=== PATIENT | female | born 1960 | race Caucasian/White ===

== ENCOUNTER 2016-10-18 17:20 | Emergency (ER) | payer OTHER ==
[2016-10-18] MEDS ORDERED: ALBUT/IPRATROP 3MG/0.5MG NEB 3 ML VIAL INH STA ×2 (17:32→20:24)
[2016-10-18] MEDS ORDERED: SODIUM CHLORIDE 0.9% 1000ML 1,000 ML IV STA ×2 (17:32→17:56)
[2016-10-18] MEDS ORDERED: METHYLPREDNISOLONE 125 MG VIAL IV STA (17:37)
[2016-10-18] MEDS ORDERED: SODIUM CHLORIDE 0.9% 500ML 500 ML IV STA (17:56)
[2016-10-18 18:12] LABS: BASO % 0.1 %; BASO ABS # 0.01 K/uL (0-0.2); COMPLETE YES; EOS % 0.4 %; HEMATOCRIT 40.6 % (37-47); IG% 0.1 %; LYMPH ABS # 1.67 K/uL (1.2-3.4); MEAN CELL VOLUME 93.1 fL (80-100); MEAN CORPUSCULAR HEMOGLOBIN 30.3 pg (25-34); MEAN CORPUSCULAR HGB CONC 32.5 g/dl (32-36); MEAN PLATELET VOLUME 9.8 fL (7.4-10.4); MONO % 9.2 %; NEUT % 74.2 %; PLATELET COUNT 312 K/uL (130-400); RED BLOOD COUNT 4.36 M/uL (4.2-5.4); WHITE BLOOD COUNT 10.43 K/uL (4.8-10.8)
[2016-10-18 18:20] LABS: URINE APPEARANCE CLOUDY (CLEAR); URINE COLOR ORANGE; URINE EPITHELIAL CELL AUTO >30 /lpf (0-5); URINE NITRITE NEG (NEG); URINE PH 5.5 (4.5-7.5); URINE SPECIFIC GRAVITY 1.026 (1.000-1.030); UROBILINOGEN POS (NEG)
--- NOTE | 2016-10-18 18:21 | DIAGNOSTIC IMAGING REPORT ---
CHEST ONE VIEW PORTABLE CLINICAL HISTORY: Respiratory distress. Shortness of breath. COMPARISON STUDY: No previous studies for comparison. FINDINGS: The heart is normal in size. There is severe pulmonary emphysema. There are right lower lobe airspace opacities suspicious for a pneumonia. Films subsequent to treatment are recommended in follow-up. Increased interstitial markings are also present within the left perihilar region, possibly chronic. There are no significant pleural effusions.[ IMPRESSION: 1. Emphysema 2. Right lower lobe airspace opacities suspicious for pneumonia. Clinical and radiographic follow-up is recommended in Electronically signed by: Eliu Dietrich M.D. 10/18/2016 6:20 PM Dictated Date/Time: 10/18/2016 6:19 PM
[2016-10-18 18:29] LABS: ALT/SGPT 43 U/L (12-78); AST/SGOT 51 U/L (15-37); BLOOD UREA NITROGEN 13 mg/dl (7-18); BUN/CREATININE RATIO 13.9 (10-20); CALCIUM 8.6 mg/dl (8.5-10.1); CARBON DIOXIDE 27 mmol/L (21-32); CHLORIDE 104 mmol/L (98-107); CREATININE 0.96 mg/dl (0.60-1.20); GLUCOSE 145 mg/dl (70-99); POTASSIUM 4.1 mmol/L (3.5-5.1); SODIUM 140 mmol/L (136-145)
[2016-10-18 18:34] LABS: ALB/GLOB RATIO 0.7 (0.9-2); ALKALINE PHOSPHATASE 117 U/L (45-117); CKMB/CK RATIO 1.7 (0-3.0)
[2016-10-18 18:43] LABS: MANUAL MICROSCOPIC REQUIRED? NO; REVIEW REQ? YES; URINE BILIRUBIN NEG (NEG)
[2016-10-18 18:45] LABS: URINE MUCUS PRESENT (NONE PRSENT)
[2016-10-18] MEDS ORDERED: SYMIN160 INH (19:03)
[2016-10-18] MEDS ORDERED: ATOR-24 PO (19:03)
[2016-10-18] MEDS ORDERED: CITA20TA9 PO (19:03)
[2016-10-18] MEDS ORDERED: IPRA1AER2 INH (19:03)
[2016-10-18] MEDS ORDERED: CLOP1TAB15 PO (19:03)
[2016-10-18] MEDS ORDERED: LISI-729 PO (19:03)
[2016-10-18] MEDS ORDERED: SPRIN/30 INH (19:03)
[2016-10-18] MEDS ORDERED: LEVAQUIN 750MG / 150ML D5W IV STA (20:24)
[2016-10-18] MEDS ORDERED: PRED50TA PO (23:14)
[2016-10-18] MEDS ORDERED: LEVO-366 PO (23:14)
--- NOTE | 2016-10-18 23:15 | EMERGENCY ROOM VISIT NOTE ---
History Report prepared by Lj: Bryant Sheldon Under the Supervision of: Dr. Lul Tyler M.D. First contact with patient: 17:31 Chief Complaint: FEVER Stated Complaint: COLD SYMPTOMS,FEVER,COUGH,PHLEM,RT SIDE PAIN History of Present Illness The patient is a 55 year old female who presents to the Emergency Room with complaints of worsening cold symptoms starting three days ago. The daughter states that the patient lives in [place] and was visiting her when the patient started to experience cold like symptoms, a fever, and a productive cough with green phlegm. The patient states that she has pain in her right ribs, a burning sensation with urination, and is moderately fatigued. She admits that she took Tylenol and cough drops for her symptoms but denies any relief. The patient states that she has a history of emphysema, pneumonia, COPD, heart disease, and a heart attack in 2011. She admits that she currently has two stents. The patient reports that she has oxygen at home that she uses for sleep or over exertion. She also states that she is on three different inhalers, but denies any relief. The patient denies LOC, headache, chills, diaphoresis, visual changes, neck pain, breathing difficulties, nausea, vomiting, abdominal pain, back pain, melena, hematochezia, numbness, weakness, lymphadenopathy, rash, or other complaints. Source of History: patient, family (daughter) Onset: three days ago Position: other (global) Timing: worsening Modifying Factors (Relieving): tylenol, other (cough drops) Associated Symptoms: + fevers, + cough (productive), + chest pain, + urinary symptoms, + fatigue Review of Systems See HPI for pertinent positives and negatives. A total of ten systems were reviewed and were otherwise negative. Past Medical & Surgical Medical Problems: (1) Acid reflux (2) Bronchitis (3) COPD (chronic obstructive pulmonary disease) (4) Coronary artery disease (5) Emphysema of lung (6) Heart attack (7) Heart disease (8) Hypertension (9) Myocardial infarct (10) Pneumonia Surgical Problems: (1) H/O heart artery stent (2) History of hysterectomy (3) Stented coronary artery Family History Cancer Diabetes mellitus Heart disease Hypertension Lung disease Social History Smoking Status: Former Smoker Smokeless Tobacco Use: No Alcohol Use: occasionally Drug Use: none Occupation Status: retired Current/Historical Medications Scheduled Atorvastatin (Lipitor), 40 MG PO DAILY Budesonide/Formoterol Fumarate (Symbicort 160/4.5 Inhaler), 2 PUFFS INH DAILY Citalopram Hydrobromide (Celexa), 20 MG PO DAILY Clopidogrel (Plavix), 75 MG PO DAILY Ipratropium-Albuterol (Combivent Respimat), 1 PUFFS INH QID Levofloxacin (Levaquin), 500 MG PO DAILY Lisinopril (Prinivil), 2.5 MG PO DAILY Prednisone (Prednisone), 50 MG PO DAILY Tiotropium [place] (Spiriva Handihaler), 1 CAP INH DAILY Allergies Coded Allergies: Sulfamethoxazole w/Trimethoprim (Verified Allergy, Severe, THROAT AND EARS SWELL, 10/18/16) Codeine (Verified Adverse Reaction, Intermediate, STOMACH CRAMPS, "KNOCKS ME OUT FOR DAYS", 10/18/16) Physical Exam Vital Signs Date Time Temp Pulse Resp B/P (MAP) Pulse Ox O2 Delivery O2 Flow Rate FiO2 10/18/16 23:23 36.5 87 16 103/57 98 10/18/16 22:19 90 16 114/64 98 Nasal Cannula 3.0 10/18/16 21:15 93 10/18/16 20:29 102 22 111/69 93 Room Air 10/18/16 19:29 85 16 109/63 97 Nasal Cannula 3.0 10/18/16 18:56 90 20 99/68 98 Nasal Cannula 10/18/16 18:10 98 24 117/53 100 Nasal Cannula 3.0 10/18/16 17:53 100 10/18/16 17:40 Nasal Cannula 10/18/16 17:40 Nasal Cannula 4.0 10/18/16 17:23 36.5 128 28 127/81 89 Nasal Cannula 3.0 Physical Exam GENERAL: Awake, alert, tired-appearing, in no distress HENT: Normocephalic, atraumatic. Oropharynx unremarkable. EYES: Normal conjunctiva. Sclera non-icteric. NECK: Supple. No nuchal rigidity. FROM. No JVD. RESPIRATORY: Clear to auscultation. Mild Dyspnea CARDIAC: tachycardic rate, normal rhythm. Extremities warm and well perfused. Pulses equal. ABDOMEN: Soft, non-distended. No tenderness to palpation. No rebound or guarding. No masses. RECTAL: Deferred. MUSCULOSKELETAL: Chest examination reveals no tenderness. The back is symmetrical on inspection without obvious abnormality. There is no CVA tenderness to palpation. No joint edema. LOWER EXTREMITIES: Chronic pain of lower extremities. Calves are equal size bilaterally and non-tender. No edema. Discoloration. NEURO: Normal sensorium. No sensory or motor deficits noted. SKIN: No rash or jaundice noted. Medical Decision & Procedures ER Provider Diagnostic Interpretation: X-ray: Per my interpretation, radiologist review. CHEST ONE VIEW PORTABLE CLINICAL HISTORY: Respiratory distress. Shortness of breath. COMPARISON STUDY: No previous studies for comparison. FINDINGS: The heart is normal in size. There is severe pulmonary emphysema. There are right lower lobe airspace opacities suspicious for a pneumonia. Films subsequent to treatment are recommended in follow-up. Increased interstitial markings are also present within the left perihilar region, possibly chronic. There are no significant pleural effusions.[ IMPRESSION: 1. Emphysema 2. Right lower lobe airspace opacities suspicious for pneumonia. Clinical and radiographic follow-up is recommended in Electronically signed by: Eliu Dietrich M.D. 10/18/2016 6:20 PM Dictated Date/Time: 10/18/2016 6:19 PM Laboratory Results 10/18/16 17:45 Red Blood Count 4.36, Mean Corpuscular Volume 93.1, Mean Corpuscular Hemoglobin 30.3, Mean Corpuscular Hemoglobin Concent 32.5, Mean Platelet Volume 9.8, Neutrophils (%) (Auto) 74.2, Lymphocytes (%) (Auto) 16.0, Monocytes (%) (Auto) 9.2, Eosinophils (%) (Auto) 0.4, Basophils (%) (Auto) 0.1, Neutrophils # (Auto) 7.74, Lymphocytes # (Auto) 1.67, Monocytes # (Auto) 0.96, Eosinophils # (Auto) 0.04, Basophils # (Auto) 0.01 10/18/16 17:45 Test 10/18/16 17:45 10/18/16 17:50 10/18/16 17:55 White Blood Count 10.43 K/uL (4.8-10.8) Red Blood Count 4.36 M/uL (4.2-5.4) Hemoglobin 13.2 g/dL (12.0-16.0) Hematocrit 40.6 % (37-47) Mean Corpuscular Volume 93.1 fL (80-100) Mean Corpuscular Hemoglobin 30.3 pg (25-34) Mean Corpuscular Hemoglobin Concent 32.5 g/dl (32-36) Platelet Count 312 K/uL (130-400) Mean Platelet Volume 9.8 fL (7.4-10.4) Neutrophils (%) (Auto) 74.2 % Lymphocytes (%) (Auto) 16.0 % Monocytes (%) (Auto) 9.2 % Eosinophils (%) (Auto) 0.4 % Basophils (%) (Auto) 0.1 % Neutrophils # (Auto) 7.74 K/uL (1.4-6.5) Lymphocytes # (Auto) 1.67 K/uL (1.2-3.4) Monocytes # (Auto) 0.96 K/uL (0.11-0.59) Eosinophils # (Auto) 0.04 K/uL (0-0.5) Basophils # (Auto) 0.01 K/uL (0-0.2) RDW Standard Deviation 41.5 fL (36.4-46.3) RDW Coefficient of Variation 12.2 % (11.5-14.5) Immature Granulocyte % (Auto) 0.1 % Immature Granulocyte # (Auto) 0.01 K/uL (0.00-0.02) Anion Gap 9.0 mmol/L (3-11) Estimated GFR () 76.1 Estimated GFR (Non- 65.7 BUN/Creatinine Ratio 13.9 (10-20) Calcium Level 8.6 mg/dl (8.5-10.1) Total Bilirubin 0.9 mg/dl (0.2-1) Aspartate Amino Transf (AST/SGOT) 51 U/L (15-37) Alanine Aminotransferase (ALT/SGPT) 43 U/L (12-78) Alkaline Phosphatase 117 U/L (45-117) Total Creatine Kinase 107 U/L (26-192) Creatine Kinase MB 1.8 ng/ml (0.5-3.6) Creatine Kinase MB Ratio 1.7 (0-3.0) Troponin I < 0.015 ng/ml (0-0.045) Pro-B-Type Natriuretic Peptide 353 pg/ml (0-900) Total Protein 7.7 gm/dl (6.4-8.2) Albumin 3.3 gm/dl (3.4-5.0) Globulin 4.4 gm/dl (2.5-4.0) Albumin/Globulin Ratio 0.7 (0.9-2) Urine Color ORANGE Urine Appearance CLOUDY (CLEAR) Urine pH 5.5 (4.5-7.5) Urine Specific [place] 1.026 (1.000-1.030) Urine Protein 1+ (NEG) Urine Glucose (UA) NEG (NEG) Urine Ketones 1+ (NEG) Urine Occult Blood TRACE (NEG) Urine Nitrite NEG (NEG) Urine Bilirubin NEG (NEG) Urine Urobilinogen POS (NEG) Urine Leukocyte Esterase MODERATE (NEG) Urine WBC (Auto) >30 /hpf (0-5) Urine RBC (Auto) 0-4 /hpf (0-4) Urine Hyaline Casts (Auto) >30 /lpf (0-5) Urine Epithelial Cells (Auto) >30 /lpf (0-5) Urine Bacteria (Auto) NEG (NEG) Urine Renal Epithelial Cells 0-5 /lpf (0-5) Urine Pathogenic Casts See comments /lpf (0) Urine Mucus PRESENT (NONE PRSENT) Bedside Lactic Acid Venous 1.68 mmol/L (0.90-1.70) Laboratory results reviewed by me Medications Administered Medications (Trade) Dose Ordered Sig/Valery Route Start Time Stop Time Status Last Admin Dose Admin Albuterol/ Ipratropium (Duoneb) 3 ml NOW STAT INH 10/18/16 17:32 10/18/16 17:34 DC 10/18/16 17:42 3 ML Methylprednisolone Sodium Succinate (Solu-Medrol IV) 125 mg NOW STAT IV 10/18/16 17:37 10/18/16 17:38 DC 10/18/16 18:03 125 MG Sodium Chloride 1,000 ml @ 125 mls/hr Q8H STAT IV 10/18/16 17:56 10/18/16 23:47 DC 10/18/16 17:56 125 MLS/HR Sodium Chloride 500 ml @ 999 mls/hr Q31M STAT IV 10/18/16 17:56 10/18/16 18:26 DC 10/18/16 18:03 999 MLS/HR Albuterol/ Ipratropium (Duoneb) 3 ml NOW STAT INH 10/18/16 20:24 10/18/16 20:25 DC 10/18/16 20:48 3 ML Levofloxacin (Levaquin / D5W) 750 mg NOW STAT IV 10/18/16 20:24 10/18/16 20:25 DC 10/18/16 20:48 750 MG Laboratory results reviewed by me ECG Indication: chest pain Rate (beats per minute): 105 Rhythm: sinus tachycardia Findings: no acute ischemic change, no ectopy, other (low voltage QRS) ED Course Blood pressure screening: Patient was found to have normal blood pressure on screening and does not require follow-up. Medication Reconciliation: I attest that I have personally reviewed the patient 's current medication list 1732: Sodium chloride 1000 ml @ 999 mls/hr IV, Duoneb 3 ml INH. 1735: The patient was evaluated in room B12B. A complete history and physical exam was performed. 1737: Solu-Medrol IV 125 mg IV. 1756: Sodium Chloride 500 ml @ 999 mls/hr, Sodium Chloride 1000 ml @ 125 mls/hr IV. 4: Levofloxacin 750 mg IV, Duoneb 3 ml INH. 2307: I reevaluated the patient. She is feeling much better after a full meal and medications. Discussed results and discharge instructions: She verbalized understanding and agreement. The patient is ready for discharge. Medical Decision Triage Nursing notes reviewed. The patient's presentation and history were concerning for respiratory issues. Etiologies such as pneumonia, COPD, reactive airway disease, CHF, cardiac ischemia, pulmonary embolism, pneumothorax, musculoskeletal, infections, gastrointestinal, as well as others were entertained. The patient was evaluated. She has a history COPD and pneumonia. She was tachycardic and had increased work of breathing. ECG was unremarkable. No ischemia. Normal intervals. No QT prolongation. She does have home oxygen but states she only uses this as needed. Her saturation was 89%. The patient was hydrated, given a breathing treatment of a DuoNeb and also received IV Solu- Medrol. This made her feel significantly better and increased her O2 saturation into the high 90s with nasal cannula oxygen. The patient had a chest x-ray performed and this did reveal a pneumonia on the right side. Her CBC, urinalysis, chemistry panel, cardiac markers and BNP were unremarkable. The patient desired to be discharged and did not want to stay in the hospital. She has made an amazing turnaround and her vital signs are stable. She was given a dose of IV Levaquin and ate dinner. She was observed for several hours and did fantastic. She has home oxygen, multiple inhalers, and feels and platelet back to normal. She has no respiratory distress or increased work of breathing at this time. As the patient desires to be discharged and is doing so well I believe it is reasonable. I will place her on prednisone and Levaquin. The patient is unsure how long she will be in town. I did instruct her she will need a follow-up with her primary physician as soon as she gets home. She agreed. I told the patient to have a very low threshold to return to the emergency department. If she worsens in anyway she agrees to return back to the Emergency Room for reevaluation and consideration of further treatment.I gave my usual and customary discussion regarding this issue. The daughter was present and feels very comfortable with this plan. Return instructions were outlined and the patient was discharged in stable condition. Impression Primary Impression: Pneumonia Additional Impression: COPD (chronic obstructive pulmonary disease) Scribe Attestation The scribe's documentation has been prepared under my direction and personally reviewed by me in its entirety. I confirm that the note above accurately reflects all work, treatment, procedures, and medical decision making performed by me. Departure Information Dispostion Home / Self-Care Prescriptions Levofloxacin (Levaquin) 500 Mg Tab 500 MG PO DAILY for 9 Days, #9 TAB Prov: Lul Tyler MD 10/18/16 Prednisone (Prednisone) 50 Mg Tab 50 MG PO DAILY for 4 Days, #4 TAB Prov: Lul Tyler MD 10/18/16 Referrals No Doctor, Assigned (PCP) Patient Instructions My [facility] Additional Instructions PNEUMONIA INSTRUCTIONS: Levafloxacin(Levaquin) 500mg: Take one pill daily for 9 days for your infection. All antibiotics can cause diarrhea. If this occurs and you feel worse or it does not resolve in 1-2 days follow up with your doctor or return to the Emergency Department as this could be signs of serious underlying problems. Any medication can cause an allergic reaction, stop the pills immediately and return to the ER for rash, hives, breathing difficulties, or swelling. Prednisone 50 mg: Once daily until the prescription is finished. Continue your inhalers. Acetaminophen(Tylenol) may be used for fever or pain. Use 1000mg every six hours as needed. Avoid using more than 4000mg in a 24 hour period. AND/OR Ibuprofen(Motrin, Advil) may be used for fever or pain. Use 600mg every six hours as needed. Take with food. Avoid using more than 2400mg in a 24 hour period. Do not use 2400mg per day for more than three consecutive days without physician direction. Prolonged inappropriate use can lead to stomach upset or ulcers. Controlling your fever with Tylenol and Ibuprofen as above will make you feel better. Rest and drink plenty of fluids. Avoid strenuous activity until your symptoms resolve and your breathing returns to normal. Return to the ER for chest pain, difficulty breathing, persistent fevers, vomiting, worsening of your condition, or as needed. Follow up with your primary physician when you return home for a recheck of the current condition. Problem Qualifiers
[2016-10-18 23:23] VITALS: BP 103/57; PULSE 87; TEMP 36.5; O2SAT 98
== END 2016-10-18 23:24 | disposition home or self-care (01) ==
LOC: C.EDB 17:21
DX: J18.9 Pneumonia, unspecified organism (principal); J44.9 Chronic obstructive pulmonary disease, unspecified; I25.10 Atherosclerotic heart disease of native coronary artery without angina pectoris; I51.9 Heart disease, unspecified; I10 Essential (primary) hypertension; I25.2 Old myocardial infarction; Z83.3 Family history of diabetes mellitus; Z82.49 Family history of ischemic heart disease and other diseases of the circulatory system; Z87.891 Personal history of nicotine dependence; J43.9 Emphysema, unspecified

== ENCOUNTER 2017-02-14 00:08 | Emergency (ER) | payer OTHER ==
[~2017-02-14] VITALS: Ht 154.9 cm; Wt 46.4 kg
[~2017-02-14 00:08] MED LIST: ATOR-24 PO; CITA20TA9 PO; CLOP1TAB15 PO; IPRA1AER2 INH; LISI-729 PO; SPRIN/30 INH; SYMIN160 INH
[2017-02-14 00:13] VITALS: TEMP 36.7; Ht 154.9 cm; Wt 46.4 kg
[2017-02-14] MEDS ORDERED: LIDOCAINE/EPINEPH/TETRACAINE 1 EA SYR EXT STA (00:41)
[2017-02-14] MEDS ORDERED: DIPHTHERIA/TETANUS/PERTUSSIS 0.5 ML SYR/VIAL IM. ONE (00:45)
[2017-02-14 01:26] LABS: BASO % 0.1 %; BASO ABS # 0.01 K/uL (0-0.2); COMPLETE YES; EOS % 2.5 %; IG% 0.1 %; LYMPH ABS # 2.84 K/uL (1.2-3.4); MEAN CELL VOLUME 93.3 fL (80-100); MEAN CORPUSCULAR HEMOGLOBIN 31.3 pg (25-34); MEAN CORPUSCULAR HGB CONC 33.6 g/dl (32-36); MONO % 8.7 %; NEUT % 47.6 %; PLATELET COUNT 382 K/uL (130-400); RED BLOOD COUNT 4.18 M/uL (4.2-5.4); WHITE BLOOD COUNT 6.92 K/uL (4.8-10.8)
[2017-02-14 01:44] LABS: BUN/CREATININE RATIO 9.9 (10-20); CALCIUM 8.5 mg/dl (8.5-10.1); CREATININE 0.64 mg/dl (0.60-1.20); POTASSIUM 3.8 mmol/L (3.5-5.1)
--- NOTE | 2017-02-14 01:49 | EMERGENCY ROOM VISIT NOTE ---
ED Visit Note Patient was seen and evaluated at the request of my attending physician, Dr. Tyler, for a left eyebrow laceration. Please see Dr Tyler's dictation for full history of present illness and emergency Department course outside of this repair. In short, the patient suffered a fall at home with subsequent 2 cm fairly linear laceration over the left eyebrow. This wound does gape and will require repair. Laceration repair. Patient elects to have their laceration repaired. Verbal consent was obtained to perform the procedure. There is an abundance of materials available for the procedure. Patient is not allergic to latex. Using sterile technique the wound was cleaned with Betadine. The area was sterilely draped. LET gel was used to anesthetize the left eyebrow laceration. Once the patient was anesthetized, the wound was copiously irrigated under pressure with sterile saline. The wound was explored and there were no deep structures injured such as tendons, bone, or significant blood vessels. The laceration was repaired using 3 simple interrupted 5-0 nylon sutures with the wound edges being well approximated. Hemostasis was achieved. The area was cleaned with sterile saline and dressed with bacitracin ointment and bandage. Blood loss was negligible. Problem List Medical Problems: (1) COPD (chronic obstructive pulmonary disease) Status: Chronic (2) Coronary artery disease Status: Chronic (3) Heart attack Status: Resolved (4) Myocardial infarct Status: Resolved Surgical Problems: (1) H/O heart artery stent Status: Resolved (2) History of hysterectomy Status: Resolved (3) Stented coronary artery Status: Chronic Current/Historical Medications Scheduled Atorvastatin (Lipitor), 40 MG PO DAILY Budesonide/Formoterol Fumarate (Symbicort 160/4.5 Inhaler), 2 PUFFS INH DAILY Citalopram Hydrobromide (Celexa), 20 MG PO DAILY Clopidogrel (Plavix), 75 MG PO DAILY Ipratropium-Albuterol (Combivent Respimat), 1 PUFFS INH QID Lisinopril (Prinivil), 2.5 MG PO DAILY Tiotropium [place] (Spiriva Handihaler), 1 CAP INH DAILY Allergies Coded Allergies: Sulfamethoxazole w/Trimethoprim (Verified Allergy, Severe, THROAT AND EARS SWELL, 02/14/17) Codeine (Verified Adverse Reaction, Intermediate, STOMACH CRAMPS, "KNOCKS ME OUT FOR DAYS", 02/14/17) Vital Signs Date Time Temp Pulse Resp B/P (MAP) Pulse Ox O2 Delivery O2 Flow Rate FiO2 02/14/17 00:54 Room Air 02/14/17 00:13 36.7 77 18 124/76 97 Nasal Cannula 2.0 Laboratory Results 02/14/17 01:15 Red Blood Count 4.18, Mean Corpuscular Volume 93.3, Mean Corpuscular Hemoglobin 31.3, Mean Corpuscular Hemoglobin Concent 33.6, Mean Platelet Volume 9.0, Neutrophils (%) (Auto) 47.6, Lymphocytes (%) (Auto) 41.0, Monocytes (%) (Auto) 8.7, Eosinophils (%) (Auto) 2.5, Basophils (%) (Auto) 0.1, Neutrophils # (Auto) 3.29, Lymphocytes # (Auto) 2.84, Monocytes # (Auto) 0.60, Eosinophils # (Auto) 0.17, Basophils # (Auto) 0.01 02/14/17 01:15 Test 02/14/17 01:15 White Blood Count 6.92 K/uL (4.8-10.8) Red Blood Count 4.18 M/uL (4.2-5.4) Hemoglobin 13.1 g/dL (12.0-16.0) Hematocrit 39.0 % (37-47) Mean Corpuscular Volume 93.3 fL (80-100) Mean Corpuscular Hemoglobin 31.3 pg (25-34) Mean Corpuscular Hemoglobin Concent 33.6 g/dl (32-36) Platelet Count 382 K/uL (130-400) Mean Platelet Volume 9.0 fL (7.4-10.4) Neutrophils (%) (Auto) 47.6 % Lymphocytes (%) (Auto) 41.0 % Monocytes (%) (Auto) 8.7 % Eosinophils (%) (Auto) 2.5 % Basophils (%) (Auto) 0.1 % Neutrophils # (Auto) 3.29 K/uL (1.4-6.5) Lymphocytes # (Auto) 2.84 K/uL (1.2-3.4) Monocytes # (Auto) 0.60 K/uL (0.11-0.59) Eosinophils # (Auto) 0.17 K/uL (0-0.5) Basophils # (Auto) 0.01 K/uL (0-0.2) RDW Standard Deviation 43.2 fL (36.4-46.3) RDW Coefficient of Variation 12.6 % (11.5-14.5) Immature Granulocyte % (Auto) 0.1 % Immature Granulocyte # (Auto) 0.01 K/uL (0.00-0.02) Anion Gap 7.0 mmol/L (3-11) Est Creatinine Clear Calc Drug Dose 70.1 ml/min Estimated GFR () 114.0 Estimated GFR (Non- 98.4 BUN/Creatinine Ratio 9.9 (10-20) Calcium Level 8.5 mg/dl (8.5-10.1) Ethyl Alcohol mg/dL 189.0 mg/dl (0-3) Medications Administered Medications (Trade) Dose Ordered Sig/Valery Route Start Time Stop Time Status Last Admin Dose Admin Tetracaine/ Epinephrine/ Lidocaine (L.e.t. Gel 4%/ 1:100/0.5%) 1 ea UD STAT EXT 02/14/17 00:41 02/14/17 00:42 DC 02/14/17 00:48 1 EA Diphtheria/ Pertussis/Tetanus Vacc (Adacel Inj) 0.5 ml ONCE ONCE IM. 02/14/17 00:45 02/14/17 00:46 DC 02/14/17 00:48 0.5 ML Departure Information Referrals Atilio Hadley M.D. (PCP) Patient Instructions My [facility]
--- NOTE | 2017-02-14 02:24 | EMERGENCY ROOM VISIT NOTE ---
History Report prepared by Lj: Jeffrey Cardoza Under the Supervision of: Dr. Lul Tyler M.D. First contact with patient: 00:34 Chief Complaint: FALL Stated Complaint: FALL,HEAD INJURY History of Present Illness The patient is a 56 year old female who presents to the Emergency Room with complaints of a sudden fall occurring around 2300 tonight. The patient states that she was drinking four beers and she became off balance and hit her head and cut her left eye brow. She states that she did not lose consciousness, though she does not know what she hit her head on. She notes that she drinks every other day. The patient is chronically on 2L of oxygen at home. Pt denies, headache, visual changes, neck pain, chest pain, breathing difficulties, nausea , vomiting, abdominal pain, back pain, extremity pain, numbness, weakness, or other complaints. Source of History: patient Onset: 2300 Position: other (global) Quality: other (fall) Timing: other (sudden) Note: Associated symptoms: Left eye brow laceration Review of Systems See HPI for pertinent positives and negatives. A total of ten systems were reviewed and were otherwise negative. Past Medical & Surgical Medical Problems: (1) Acid reflux (2) Bronchitis (3) COPD (chronic obstructive pulmonary disease) (4) Coronary artery disease (5) Emphysema of lung (6) Heart attack (7) Heart disease (8) Hypertension (9) Myocardial infarct (10) Pneumonia Surgical Problems: (1) H/O heart artery stent (2) History of hysterectomy (3) Stented coronary artery Family History Cancer Diabetes mellitus Heart disease Hypertension Lung disease Social History Smoking Status: Never Smoker Alcohol Use: occasionally Drug Use: none Occupation Status: retired Current/Historical Medications Scheduled Atorvastatin (Lipitor), 40 MG PO DAILY Budesonide/Formoterol Fumarate (Symbicort 160/4.5 Inhaler), 2 PUFFS INH DAILY Citalopram Hydrobromide (Celexa), 20 MG PO DAILY Clopidogrel (Plavix), 75 MG PO DAILY Ipratropium-Albuterol (Combivent Respimat), 1 PUFFS INH QID Lisinopril (Prinivil), 2.5 MG PO DAILY Tiotropium [place] (Spiriva Handihaler), 1 CAP INH DAILY Allergies Coded Allergies: Sulfamethoxazole w/Trimethoprim (Verified Allergy, Severe, THROAT AND EARS SWELL, 02/14/17) Codeine (Verified Adverse Reaction, Intermediate, STOMACH CRAMPS, "KNOCKS ME OUT FOR DAYS", 02/14/17) Physical Exam Vital Signs Date Time Temp Pulse Resp B/P (MAP) Pulse Ox O2 Delivery O2 Flow Rate FiO2 02/14/17 01:06 71 16 126/50 96 Nasal Cannula 2.0 02/14/17 00:54 Room Air 02/14/17 00:13 36.7 77 18 124/76 97 Nasal Cannula 2.0 Physical Exam GENERAL: Awake, alert, well appearing, no distress HEAD: 2cm laceration to the left eye brow. Normocephalic. No steele sign. No raccoon eyes. EYES: Normal conjunctiva. PERRL. EARS: External ears normal. Right TM normal. Left TM normal. NOSE: Atraumatic OROPHARYNX: Lips, tongue, and mucosa unremarkable. No erythema or exudate. NECK: No tracheal deviation or JVD. No posterior midline tenderness. No step offs noted. RESPIRATORY: CTA bilaterally CARDIAC: Regular rate, normal rhythm. ABDOMEN: Inspection reveals no abnormalities. Soft, non distended. No tenderness to palpation. No hernias. BACK: No midline step offs or tenderness to palpation. Unremarkable. PELVIS: Stable to rock. SKIN: Normal. LYMPH: No adenopathy. MUSCULOSKELETAL: Upper and lower extremities are atraumatic. NEURO: GCS 15. Normal sensorium. No sensory or motor deficits noted. Medical Decision & Procedures ER Provider Diagnostic Interpretation: Head CT: A noncontrast CT scan of the head was performed and was negative for tumor, fracture, intracranial hemorrhage, or other acute pathology. Cervical spine CT revealed no evidence of acute fracture. There is some mild straightening of the lordosis. Degenerative changes with mild listhesis noted. Emphysema noted in the lungs. Laboratory Results 02/14/17 01:15 Red Blood Count 4.18, Mean Corpuscular Volume 93.3, Mean Corpuscular Hemoglobin 31.3, Mean Corpuscular Hemoglobin Concent 33.6, Mean Platelet Volume 9.0, Neutrophils (%) (Auto) 47.6, Lymphocytes (%) (Auto) 41.0, Monocytes (%) (Auto) 8.7, Eosinophils (%) (Auto) 2.5, Basophils (%) (Auto) 0.1, Neutrophils # (Auto) 3.29, Lymphocytes # (Auto) 2.84, Monocytes # (Auto) 0.60, Eosinophils # (Auto) 0.17, Basophils # (Auto) 0.01 02/14/17 01:15 Test 02/14/17 01:15 White Blood Count 6.92 K/uL (4.8-10.8) Red Blood Count 4.18 M/uL (4.2-5.4) Hemoglobin 13.1 g/dL (12.0-16.0) Hematocrit 39.0 % (37-47) Mean Corpuscular Volume 93.3 fL (80-100) Mean Corpuscular Hemoglobin 31.3 pg (25-34) Mean Corpuscular Hemoglobin Concent 33.6 g/dl (32-36) Platelet Count 382 K/uL (130-400) Mean Platelet Volume 9.0 fL (7.4-10.4) Neutrophils (%) (Auto) 47.6 % Lymphocytes (%) (Auto) 41.0 % Monocytes (%) (Auto) 8.7 % Eosinophils (%) (Auto) 2.5 % Basophils (%) (Auto) 0.1 % Neutrophils # (Auto) 3.29 K/uL (1.4-6.5) Lymphocytes # (Auto) 2.84 K/uL (1.2-3.4) Monocytes # (Auto) 0.60 K/uL (0.11-0.59) Eosinophils # (Auto) 0.17 K/uL (0-0.5) Basophils # (Auto) 0.01 K/uL (0-0.2) RDW Standard Deviation 43.2 fL (36.4-46.3) RDW Coefficient of Variation 12.6 % (11.5-14.5) Immature Granulocyte % (Auto) 0.1 % Immature Granulocyte # (Auto) 0.01 K/uL (0.00-0.02) Anion Gap 7.0 mmol/L (3-11) Est Creatinine Clear Calc Drug Dose 70.1 ml/min Estimated GFR () 114.0 Estimated GFR (Non- 98.4 BUN/Creatinine Ratio 9.9 (10-20) Calcium Level 8.5 mg/dl (8.5-10.1) Ethyl Alcohol mg/dL 189.0 mg/dl (0-3) Laboratory results reviewed by me Medications Administered Medications (Trade) Dose Ordered Sig/Valery Route Start Time Stop Time Status Last Admin Dose Admin Tetracaine/ Epinephrine/ Lidocaine (L.e.t. Gel 4%/ 1:100/0.5%) 1 ea UD STAT EXT 02/14/17 00:41 02/14/17 00:42 DC 02/14/17 00:48 1 EA Diphtheria/ Pertussis/Tetanus Vacc (Adacel Inj) 0.5 ml ONCE ONCE IM. 02/14/17 00:45 02/14/17 00:46 DC 02/14/17 00:48 0.5 ML ED Course 0038: The patient was evaluated in room B3. A complete history and physical exam was performed. 0041: LET Gel 4%/ 1:100/0.5% 1ea EXT 0045: Adacel Inj 0.5ml IM 0140: Laceration repair was performed by Sravan Galeano PA-C Medical Decision Triage Nursing notes reviewed. The patient's presentation and history were concerning for a head injury and fall. Etiologies such as fracture, intracranial, soft tissue injury, intra-abdominal , intrathoracic,as well as other traumatic pathologies were entertained. The patient was evaluated. Clinically she was doing well. Let gel was applied. She had some mild intoxication clinically. Imaging was ordered. Blood work was obtained. Wound was closed by Sravan Galeano PA-C. Please see his note. Patient's laboratory testing was unremarkable. She had a moderate elevation of her blood alcohol level. On reassessment the patient was doing very well. She was exhibiting minimal signs of intoxication. She does admit to drinking on a relatively regular basis and seems to have a tolerance. She has no complaints at this time. She denies any neck pain. She has no headache. I discussed conservative management with the patient and her significant other. They felt comfortable. By the evaluation outlined above other emergent etiologies such as those listed in the differential, as well as others, were deemed relatively unlikely. The patient was educated about the findings as listed above. All questions were answered and the patient was pleased with the treatment. Return instructions were outlined and the patient was discharged in stable condition. The patient was referred to her PCP and the ER for follow-up for a recheck of the current condition. Medication Reconcilliation Current Medication List: was personally reviewed by me Blood Pressure Screening Patient's blood pressure: Normal blood pressure Impression Primary Impression: Fall Additional Impression: Laceration of left eyebrow Scribe Attestation The scribe's documentation has been prepared under my direction and personally reviewed by me in its entirety. I confirm that the note above accurately reflects all work, treatment, procedures, and medical decision making performed by me. Departure Information Dispostion Home / Self-Care Referrals No Doctor, Assigned (PCP) Patient Instructions [facility] Additional Instructions WOUND CARE INSTRUCTIONS: Bacitracin to wounds once daily. Use a non-stick dressing such as a large band-aid. Change the dressings once a day. Tylenol as needed for pain. Allow your wounds to air dry several hours per day when you are resting, but it is a good idea to keep them covered while sleeping to prevent irritation and the sheets sticking to the wound. Apply direct pressure for any bleeding. Return to the ER immediately for spreading redness, fevers, pus-like drainage, severe headache, chest pain, neck pain, severe pain in the wound, or as needed. Return to the ER in 5 days for suture/staple removal, or sooner as needed. Avoid alcohol consumption. No driving tonight. Follow-up with your primary physician next week. Problem Qualifiers
[2017-02-14 02:28] VITALS: BP 128/71; PULSE 70; O2SAT 96
--- NOTE | 2017-02-14 06:31 | DIAGNOSTIC IMAGING REPORT ---
CERVICAL SPINE W/O CLINICAL HISTORY: 56 years-old Female presenting with EVALUATE CHI/CONCUSSION. TECHNIQUE: Multidetector CT of the cervical spine was performed without the use of intravenous contrast. IV contrast: None. A dose lowering technique was used consistent with the principles of ALARA (as low as reasonably achievable). COMPARISON: None. CT DOSE (mGy.cm): The estimated cumulative dose is 915.[address] head. FINDINGS: Design Eng topogram: Unremarkable. Straightening of normal cervical lordosis with minimal reversal centered at C4. 3 mm of grade 1 anterolisthesis of C2 on C3, and 2 mm of grade 1 anterolisthesis of C3 on C4. There is also slight dextrocurvature of the cervical spine centered at the cervicothoracic junction. This is likely degenerative in etiology. No acute fracture or subluxation. Multilevel degenerative changes with disc osteophyte complexes noted at every level to varying degrees. In combination with facet and uncovertebral hypertrophy this results in osseous neural foraminal narrowing on the left at C3-4, C5-6, and C6-7. Mild osseous spinal canal narrowing. Skull base intact. No prevertebral soft tissue swelling. Paraspinal soft tissues within normal limits. Severe emphysema at the lung apices. Calcification also noted at the apices, possibly related to calcified plaques or calcified cicatrizing atelectasis. IMPRESSION: 1. No acute osseous injury of the cervical spine. 2. Multilevel degenerative changes with osseous neural foraminal narrowing to varying degrees greater on the left. 3. Emphysema. Electronically signed by: Tyrone Bailey M.D. 02/14/2017 6:30 AM Dictated Date/Time: 02/14/2017 6:24 AM
--- NOTE | 2017-02-14 06:34 | DIAGNOSTIC IMAGING REPORT ---
HEAD WITHOUT CONTRAST (CT) CLINICAL HISTORY: 56 years-old Female presenting with EVALUATE CHI/CONCUSSION, fall, injury to the left side of the head. TECHNIQUE: Multidetector CT imaging of the head was performed without the use of intravenous contrast. IV contrast: None. A dose lowering technique was used consistent with the principles of ALARA (as low as reasonably achievable). COMPARISON: None. CT DOSE (mGy.cm): The estimated cumulative dose is 915.44 mGy.cm. FINDINGS: Human Services Instructor topogram: Unremarkable. Ventricles and sulci normal in size. Brain parenchyma normal in appearance with preserved curran-white differentiation. No mass effect or midline shift. No hemorrhage or acute territorial infarct. No extra-axial fluid collection. Paranasal sinuses and mastoid air cells clear. Calvarium intact. Left periorbital subcutaneous tissue infiltration. Orbits grossly normal. IMPRESSION: 1. No acute intracranial pathology. 2. Superficial soft tissue contusion in the left periorbital region. Electronically signed by: Tyrone Bailey M.D. 02/14/2017 6:33 AM Dictated Date/Time: 02/14/2017 6:30 AM
== END 2017-02-14 02:24 | disposition home or self-care (01) ==
LOC: C.EDB 00:09
DX: S01.112A Laceration without foreign body of left eyelid and periocular area, initial encounter (principal); W19.XXXA Unspecified fall, initial encounter; Z23 Encounter for immunization; I10 Essential (primary) hypertension; I25.10 Atherosclerotic heart disease of native coronary artery without angina pectoris; J44.9 Chronic obstructive pulmonary disease, unspecified; I51.9 Heart disease, unspecified; I25.2 Old myocardial infarction; K21.9 Gastro-esophageal reflux disease without esophagitis; Z90.710 Acquired absence of both cervix and uterus; Z98.61 Coronary angioplasty status; Z79.899 Other long term (current) drug therapy; Z88.2 Allergy status to sulfonamides; Z88.5 Allergy status to narcotic agent; Z80.9 Family history of malignant neoplasm, unspecified; Z83.3 Family history of diabetes mellitus; Z82.49 Family history of ischemic heart disease and other diseases of the circulatory system

== ENCOUNTER 2017-05-14 09:31 | Emergency (ER) | payer OTHER ==
[2017-05-14 09:40] VITALS: TEMP 36.7
[2017-05-14] MEDS ORDERED: SODIUM CHLORIDE 0.9% 1000ML 1,000 ML IV STA ×2 (09:45→13:15)
[2017-05-14] MEDS ORDERED: METHYLPREDNISOLONE 125 MG VIAL IV STA (09:45)
[2017-05-14] MEDS ORDERED: MAGNESIUM SULFATE 1GM / D5W 1 GM BAG IV STA (09:45)
[2017-05-14] MEDS ORDERED: ALBUT/IPRATROP 3MG/0.5MG NEB 3 ML VIAL INH ONE (09:45)
[2017-05-14 09:56] VITALS: O2SAT 94
[2017-05-14 10:04] LABS: BASO % 0.1 %; BASO ABS # 0.01 K/uL (0-0.2); EOS % 0.2 %; EOS ABS # 0.02 K/uL (0-0.5); HEMATOCRIT 40.3 % (37-47); HEMOGLOBIN 13.8 g/dL (12.0-16.0); IG# 0.03 K/uL (0.00-0.02); LYMPH ABS # 1.58 K/uL (1.2-3.4); MEAN CELL VOLUME 93.5 fL (80-100); MEAN CORPUSCULAR HGB CONC 34.2 g/dl (32-36); MEAN PLATELET VOLUME 9.7 fL (7.4-10.4); MONO % 4.3 %; MONO ABS # 0.45 K/uL (0.11-0.59); NEUT % 80.1 %; NEUT ABS # 8.47 K/uL (1.4-6.5); PLATELET COUNT 266 K/uL (130-400); RED CELL DISTRIBUTION WIDTH CV 13.3 % (11.5-14.5); RED CELL DISTRIBUTION WIDTH SD 45.4 fL (36.4-46.3); WHITE BLOOD COUNT 10.56 K/uL (4.8-10.8)
--- NOTE | 2017-05-14 10:08 | EMERGENCY ROOM VISIT NOTE ---
History Report prepared by Lj: Gaby Silvestre Under the Supervision of: Dr. Marlon Bauer M.D. First contact with patient: 09:37 Chief Complaint: CHEST PAIN Stated Complaint: SOB, CHEST PAINS, COUGH, DIARRHEA History of Present Illness The patient is a 56 year old female who presents to the Emergency Room with complaints of persistent chest pain that began a few days ago. The patient states that her pain radiates to her ribs. She notes she has been congested since yesterday and has been coughing up green mucous for 3 days. The patient states she vomited yesterday and has been having a sore throat , chills, and diarrhea. She denies any fever, melena, or hematochezia. The patient states she normally takes 2L of oxygen. She notes a history of myocardial infarctions. Source of History: patient Onset: few days ago Position: chest Quality: other (chest pain) Timing: other (persistent) Associated Symptoms: + chills, + sorethroat, + cough, + diarrhea, No melena , No hematochezia Review of Systems See HPI for pertinent positives and negatives. A total of ten systems were reviewed and were otherwise negative. Past Medical & Surgical Medical Problems: (1) Acid reflux (2) Bronchitis (3) COPD (chronic obstructive pulmonary disease) (4) Coronary artery disease (5) Emphysema of lung (6) Heart attack (7) Heart disease (8) Hypertension (9) Myocardial infarct (10) Pneumonia Surgical Problems: (1) H/O heart artery stent (2) History of hysterectomy (3) Stented coronary artery Family History Cancer Diabetes mellitus Heart disease Hypertension Lung disease Social History Smoking Status: Never Smoker Alcohol Use: occasionally Drug Use: none Occupation Status: retired Current/Historical Medications Scheduled Atorvastatin (Lipitor), 40 MG PO DAILY Budesonide/Formoterol Fumarate (Symbicort 160/4.5 Inhaler), 2 PUFFS INH DAILY Citalopram Hydrobromide (Celexa), 20 MG PO DAILY Clopidogrel (Plavix), 75 MG PO DAILY Ipratropium-Albuterol (Combivent Respimat), 1 PUFFS INH QID Levofloxacin (Levaquin), 750 MG PO DAILY Lisinopril (Prinivil), 2.5 MG PO DAILY Prednisone (Prednisone), 3 TAB PO DAILY Tiotropium [place] (Spiriva Handihaler), 1 CAP INH DAILY Allergies Coded Allergies: Sulfamethoxazole w/Trimethoprim (Verified Allergy, Severe, THROAT AND EARS SWELL, 02/14/17) Codeine (Verified Adverse Reaction, Intermediate, STOMACH CRAMPS, "KNOCKS ME OUT FOR DAYS", 02/14/17) Physical Exam Vital Signs Date Time Temp Pulse Resp B/P (MAP) Pulse Ox O2 Delivery O2 Flow Rate FiO2 05/14/17 14:20 82 18 90/54 98 05/14/17 13:56 101 21 95 05/14/17 13:51 98 20 94 05/14/17 13:46 98 19 94 05/14/17 13:41 92 19 94 05/14/17 13:36 93 19 94 05/14/17 13:31 93 19 94 05/14/17 13:26 95 20 94 05/14/17 13:21 91 19 94 05/14/17 13:16 93 20 94 05/14/17 13:14 94 05/14/17 13:11 98 23 94 05/14/17 13:06 93 19 94 05/14/17 13:01 95 20 93 05/14/17 12:56 95 20 93 05/14/17 12:51 96 20 93 05/14/17 12:46 100 24 93 05/14/17 12:41 101 22 89 05/14/17 12:36 93 19 97 05/14/17 12:31 95 22 97 05/14/17 12:26 96 21 97 05/14/17 12:21 95 23 97 05/14/17 12:16 94 20 97 05/14/17 12:11 93 22 98 05/14/17 12:06 93 19 98 05/14/17 12:01 94 19 98 05/14/17 11:56 91 22 98 05/14/17 11:51 90 21 98 05/14/17 11:46 89 21 99 05/14/17 11:41 92 21 98 05/14/17 11:36 86 21 99 05/14/17 11:31 92 28 99 05/14/17 11:26 89 21 99 05/14/17 11:21 90 23 99 05/14/17 11:16 87 24 99 05/14/17 11:11 87 23 99 05/14/17 11:06 91 22 100 05/14/17 11:04 130/71 05/14/17 11:04 96 22 130/71 98 Nebulizer 05/14/17 11:01 97 22 05/14/17 10:56 86 22 100 05/14/17 10:51 90 23 100 05/14/17 10:46 87 49 100 05/14/17 10:41 90 31 100 05/14/17 10:36 87 23 100 05/14/17 10:31 92 20 96 Nasal Cannula 2.0 05/14/17 10:31 86 23 100 05/14/17 10:26 84 18 100 05/14/17 10:21 83 22 96 05/14/17 10:16 83 18 05/14/17 10:11 91 30 05/14/17 10:06 88 23 05/14/17 10:01 88 25 05/14/17 09:56 102 23 05/14/17 09:56 94 Nasal Cannula 2.0 05/14/17 09:56 94 Nasal Cannula 2.0 05/14/17 09:56 94 Nasal Cannula 2.0 05/14/17 09:51 100 29 05/14/17 09:47 98/58 05/14/17 09:46 219 28 82 05/14/17 09:45 97 05/14/17 09:42 92 Nasal Cannula 2.0 05/14/17 09:40 36.7 102 20 119/85 92 Nasal Cannula 2.0 05/14/17 09:38 119/85 Physical Exam GENERAL: Awake, alert, uncomfortable appearing, dyspneic, but in no acute distress HENT: Dry cracked mucous membranes. Normocephalic, atraumatic. Oropharynx unremarkable. EYES: Normal conjunctiva. Sclera non-icteric. NECK: Supple. No nuchal rigidity. FROM. No JVD. RESPIRATORY: Scattered bronchi and wheezes. Clear to auscultation. CARDIAC: Regular rate, normal rhythm. Extremities warm and well perfused. Pulses equal. ABDOMEN: Soft, non-distended. No tenderness to palpation. No rebound or guarding. No masses. RECTAL: Deferred. MUSCULOSKELETAL: Chest examination reveals no tenderness. The back is symmetrical on inspection without obvious abnormality. There is no CVA tenderness to palpation. No joint edema. LOWER EXTREMITIES: Calves are equal size bilaterally and non-tender. No edema. No discoloration. NEURO: Normal sensorium. No sensory or motor deficits noted. SKIN: No rash or jaundice noted. Medical Decision & Procedures ER Provider Diagnostic Interpretation: Radiology results as stated below per my review and radiologist interpretation: CHEST ONE VIEW PORTABLE CLINICAL HISTORY: 56 years-old Female presenting with CHEST PAIN. TECHNIQUE: Portable upright AP view of the chest was obtained. COMPARISON: 10/18/[address] from 03/10/2017. FINDINGS: Atherosclerosis of the aortic arch. Cardiac silhouette normal in size. Hyperinflated lungs. Heterogeneous lung parenchyma with relative lucency of the lung apices. Interval development of a new hazy and reticular nodular opacity in the left lower lung. No large effusion or pneumothorax. Osseous structures normal. Upper abdomen normal. IMPRESSION: 1. Left lower lobe pneumonia. Follow-up to resolution recommended. 2. Emphysema. Electronically signed by: Tyrone Bailey M.D. 05/14/2017 10:48 AM Dictated Date/Time: 05/14/2017 10:47 AM Laboratory Results 05/14/17 09:51 Red Blood Count 4.31, Mean Corpuscular Volume 93.5, Mean Corpuscular Hemoglobin 32.0, Mean Corpuscular Hemoglobin Concent 34.2, Mean Platelet Volume 9.7, Neutrophils (%) (Auto) 80.1, Lymphocytes (%) (Auto) 15.0, Monocytes (%) (Auto) 4.3, Eosinophils (%) (Auto) 0.2, Basophils (%) (Auto) 0.1, Neutrophils # (Auto) 8.47, Lymphocytes # (Auto) 1.58, Monocytes # (Auto) 0.45, Eosinophils # (Auto) 0.02, Basophils # (Auto) 0.01 05/14/17 09:51 Test 05/14/17 09:51 05/14/17 09:53 White Blood Count 10.56 K/uL (4.8-10.8) Red Blood Count 4.31 M/uL (4.2-5.4) Hemoglobin 13.8 g/dL (12.0-16.0) Hematocrit 40.3 % (37-47) Mean Corpuscular Volume 93.5 fL (80-100) Mean Corpuscular Hemoglobin 32.0 pg (25-34) Mean Corpuscular Hemoglobin Concent 34.2 g/dl (32-36) Platelet Count 266 K/uL (130-400) Mean Platelet Volume 9.7 fL (7.4-10.4) Neutrophils (%) (Auto) 80.1 % Lymphocytes (%) (Auto) 15.0 % Monocytes (%) (Auto) 4.3 % Eosinophils (%) (Auto) 0.2 % Basophils (%) (Auto) 0.1 % Neutrophils # (Auto) 8.47 K/uL (1.4-6.5) Lymphocytes # (Auto) 1.58 K/uL (1.2-3.4) Monocytes # (Auto) 0.45 K/uL (0.11-0.59) Eosinophils # (Auto) 0.02 K/uL (0-0.5) Basophils # (Auto) 0.01 K/uL (0-0.2) RDW Standard Deviation 45.4 fL (36.4-46.3) RDW Coefficient of Variation 13.3 % (11.5-14.5) Immature Granulocyte % (Auto) 0.3 % Immature Granulocyte # (Auto) 0.03 K/uL (0.00-0.02) Anion Gap 8.0 mmol/L (3-11) Estimated GFR () 87.5 Estimated GFR (Non- 75.5 BUN/Creatinine Ratio 8.9 (10-20) Calcium Level 8.7 mg/dl (8.5-10.1) Total Bilirubin 0.7 mg/dl (0.2-1) Direct Bilirubin 0.2 mg/dl (0-0.2) Aspartate Amino Transf (AST/SGOT) 75 U/L (15-37) Alanine Aminotransferase (ALT/SGPT) 57 U/L (12-78) Alkaline Phosphatase 132 U/L (45-117) Troponin I < 0.015 ng/ml (0-0.045) Total Protein 7.4 gm/dl (6.4-8.2) Albumin 3.7 gm/dl (3.4-5.0) Lipase 261 U/L (73-393) Influenza Type A (RT-PCR) Neg for Influ A (NEG) Influenza Type A Antigen Neg for Influ A (NEG) Influenza Type B Antigen Neg for Influ B (NEG) Influenza Type B (RT-PCR) Neg for Influ B (NEG) Venous Blood pH 7.42 (7.36-7.41) Venous Blood Partial Pressure CO2 45 mmHg (38.0-50.0) Venous Blood Partial Pressure O2 23 mmHg Venous Blood HCO3 28 mmol/L Venous Blood Oxygen Saturation < 60.0 % Venous Blood Base Excess 3.2 mEq/L Laboratory results reviewed by me Medications Administered Medications (Trade) Dose Ordered Sig/Valery Route Start Time Stop Time Status Last Admin Dose Admin Albuterol/ Ipratropium (Duoneb) 12 ml ONE ONCE INH 05/14/17 09:45 05/14/17 09:47 DC 05/14/17 10:25 12 ML Methylprednisolone Sodium Succinate (Solu-Medrol IV) 125 mg NOW STAT IV 05/14/17 09:45 05/14/17 09:47 DC 05/14/17 10:11 125 MG Magnesium Sulfate (Magnesium Sulfate) 2 gm NOW STAT IV 05/14/17 09:45 05/14/17 09:47 DC 05/14/17 10:11 2 GM Sodium Chloride 1,000 ml @ 999 mls/hr Q1H1M STAT IV 05/14/17 09:45 05/14/17 10:45 DC 05/14/17 10:11 999 MLS/HR Levofloxacin (Levaquin / D5W) 750 mg NOW STAT IV 05/14/17 12:27 05/14/17 12:29 DC 05/14/17 12:41 750 MG Sodium Chloride 1,000 ml @ 999 mls/hr Q1H1M STAT IV 05/14/17 13:15 05/14/17 14:15 DC 05/14/17 13:15 999 MLS/HR ED Course 0939: The patient was evaluated in room B4. A complete history and physical exam was performed. 1049: I reevaluated the patient and she is resting. 1245: I reevaluated the patient, who was resting comfortably. I discussed test findings with her and she verbalized complete understanding and agreement. The patient will see her doctor on Wednesday and return if symptoms worsen. She was discharged home. Medical Decision I reviewed the patient's past medical history, medications, and the nursing notes as described above. The patient's presentation and history were concerning for pneumonia, bronchitis , urinary tract infection, influenza, viral syndrome, electrolyte abnormalities , gastritis, gastroenteritis, ACS, and PE. The patient is a 56-year-old woman with a past history of COPD on 3 L home O2 who presents emergency Department with cough congestion shortness of breath, nausea and diarrhea per history of present illness. On arrival the patient is uncomfortable, dyspneic but in no acute distress, on her baseline 3 L O2. Afebrile vital signs stable. WBC within normal limits. Labs otherwise unremarkable. CXR with LLL PNA. Will tx with Levaquin. Patient was given continuous neb, steroids, mag On arrival patient feeling improved with return to her baseline. The patient is at her baseline O2 requirement discussed with patient options for admission versus discharge with close outpatient follow-up and strict return instructions for any worsening. She preferred discharge at this time. Thus given Rx for Levaquin and patient will follow up with her PCP or renal medicine physician on Wednesday. Medication Reconcilliation Current Medication List: was personally reviewed by me Blood Pressure Screening Patient's blood pressure: Normal blood pressure Impression Primary Impression: Community acquired pneumonia Additional Impression: COPD exacerbation Scribe Attestation The scribe's documentation has been prepared under my direction and personally reviewed by me in its entirety. I confirm that the note above accurately reflects all work, treatment, procedures, and medical decision making performed by me. Departure Information Dispostion Home / Self-Care Prescriptions Prednisone (Prednisone) 20 Mg Tab 3 TAB PO DAILY for 4 Days, #12 TAB FOR 4 DAYS Prov: Marlon Bauer M.D. 05/14/17 Levofloxacin (LEVAQUIN) 750 Mg Tab 750 MG PO DAILY for 5 Days, #5 TAB Prov: Marlon Bauer M.D. 05/14/17 Referrals Sai Driver MD (PCP) Forms Call Back Authorization, HOME CARE DOCUMENTATION FORM, IMPORTANT VISIT INFORMATION Patient Instructions ED COPD Flare, ED Pneumonia Adult, My [facility] Additional Instructions Please follow up with your primary care physician or renal medicine physician on Wednesday for re-evaluation. You were found to have a pneumonia, which is also likely exacerbating your COPD. Otherwise, your exam, EKG, and lab results did not show signs of an emergent condition at this time. Levaquin and Prednisone as directed. Use your inhaler every 4 hours for the next 48 hours and then thereafter as needed. Ensure hydration Return to the emergency department for worsening symptoms as described in the accompanying instructions. Problem Qualifiers
[2017-05-14 10:21] LABS: ALBUMIN 3.7 gm/dl (3.4-5.0); ALT/SGPT 57 U/L (12-78); AST/SGOT 75 U/L (15-37); BLOOD UREA NITROGEN 8 mg/dl (7-18); CALCIUM 8.7 mg/dl (8.5-10.1); CARBON DIOXIDE 27 mmol/L (21-32); CREATININE 0.85 mg/dl (0.60-1.20); GLUCOSE 107 mg/dl (70-99); LIPASE 261 U/L (73-393); POTASSIUM 3.6 mmol/L (3.5-5.1); SODIUM 139 mmol/L (136-145)
[2017-05-14 10:31] VITALS: PULSE 92; O2SAT 96
[2017-05-14 10:32] LABS: ALKALINE PHOSPHATASE 132 U/L (45-117); TOTAL PROTEIN 7.4 gm/dl (6.4-8.2)
--- NOTE | 2017-05-14 10:50 | DIAGNOSTIC IMAGING REPORT ---
CHEST ONE VIEW PORTABLE CLINICAL HISTORY: 56 years-old Female presenting with CHEST PAIN. TECHNIQUE: Portable upright AP view of the chest was obtained. COMPARISON: 10/18/[address] from 03/10/2017. FINDINGS: Atherosclerosis of the aortic arch. Cardiac silhouette normal in size. Hyperinflated lungs. Heterogeneous lung parenchyma with relative lucency of the lung apices. Interval development of a new hazy and reticular nodular opacity in the left lower lung. No large effusion or pneumothorax. Osseous structures normal. Upper abdomen normal. IMPRESSION: 1. Left lower lobe pneumonia. Follow-up to resolution recommended. 2. Emphysema. Electronically signed by: Tyrone Bailey M.D. 05/14/2017 10:48 AM Dictated Date/Time: 05/14/2017 10:47 AM
[2017-05-14 11:13] LABS: INFLUENZA B ANTIGEN Neg for Influ B (NEG)
[2017-05-14] MEDS ORDERED: LEVAQUIN 750MG / 150ML D5W IV STA (12:27)
[2017-05-14 12:30] LABS: INFLUENZA A PCR Neg for Influ A (NEG); INFLUENZA B PCR Neg for Influ B (NEG)
[2017-05-14] MEDS ORDERED: PRED20TA PO (13:12)
[2017-05-14] MEDS ORDERED: LEVO-18 PO (13:12)
[2017-05-14 14:20] VITALS: BP 90/54; PULSE 82; O2SAT 98
--- NOTE | 2017-05-14 17:24 | Pharmacy Progress Note ---
ED Pharmacist Counseling Note Date of Service: May 14, 2017. Patient called requesting clarification on levofloxacin prescription - picked up prescription at outpatient pharmacy and was encouraged by outpatient pharmacist to contact prescribing provider and request clarification on dose of 750 mg as patient reported previous reaction while taking this dose. Spoke with patient - reaction was heart "racing like it was going to jump out of my chest". Asked if patient was experiencing any symptoms now, which patient denied (patient received 750 mg IV x1 dose while in ED ~5 hrs ago). Counseled that 750 mg dose is the recommended dose for pneumonia and that patient should take as prescribed. If patient experiences adverse effect, encouraged her to contact her PCP or the ED for further recommendations. Counseled that she should wait until tomorrow to take her 1st po dose as she received it IV in the ED already today. Case discussed w Dr. Bauer who is aware of patient-reported reaction and agreed that continuing 750 mg po daily dose is appropriate at this time.
== END 2017-05-14 14:21 | disposition home or self-care (01) ==
LOC: C.EDB 09:32
DX: J18.9 Pneumonia, unspecified organism (principal); J44.1 Chronic obstructive pulmonary disease with (acute) exacerbation; R07.9 Chest pain, unspecified; I25.10 Atherosclerotic heart disease of native coronary artery without angina pectoris; I10 Essential (primary) hypertension; K21.9 Gastro-esophageal reflux disease without esophagitis; I25.2 Old myocardial infarction; Z99.81 Dependence on supplemental oxygen; Z95.5 Presence of coronary angioplasty implant and graft; Z83.3 Family history of diabetes mellitus; Z82.49 Family history of ischemic heart disease and other diseases of the circulatory system

== ENCOUNTER 2020-02-04 19:16 | Inpatient (IN) ==
--- NOTE | 2020-02-04 19:57 | Emergency Department Note ---
History of Present Illness General Chief complaint: Constipation Stated complaint: ABD PAIN, CONSTIPATION Time Seen by Provider: 02/04/20 19:41 Source: patient and family (Spouse who is at the bedside) Mode of arrival: ambulatory Limitations: no limitations History of Present Illness Maximum Pain Intensity: 8 This patient is a 59-year-old female comes in after having abdominal pain since Wednesday. It is been in the lower abdomen intermittent. She felt like she was constipated so he tried milk of magnesia and said that she has had bowel movements that have been very small and non-formed. No blood or melena. No dysuria hematuria. No chest pain or shortness of breath. She has a history of COPD and CHF and feels that that is been stable. Questionable low-grade fever. She has had some nausea and vomiting associated with this. No history of bowel obstruction or any similar complaints. No fall or trauma. Home Medications Home Medications Medication Instructions Recorded Confirmed Type alprazolam 0.25 mg tablet 0.25 mg PO DAILY PRN 03/14/19 02/04/20 History atorvastatin 40 mg tablet 40 mg PO QAM 03/14/19 02/04/20 History ipratropium 20 mcg-albuterol 100 1 puffs INH QID #3 inhaler 03/14/19 02/04/20 Rx mcg/actuation mist for inhalation lisinopril 2.5 mg tablet 2.5 mg PO QAM 03/14/19 02/04/20 History aspirin 81 mg tablet,delayed 81 mg PO Q2D 04/25/19 02/04/20 History release ipratropium 0.5 mg-albuterol 3 mg 3 ml INH QID 90 Days #540 ml 05/18/19 02/04/20 Rx (2.5 mg base)/3 mL nebulization soln levofloxacin 750 mg tablet 750 mg PO DAILY 7 Days #7 tab 01/22/20 02/04/20 Rx azithromycin 250 mg PO MOWEFR 02/04/20 02/04/20 History escitalopram oxalate 20 mg PO QAM 02/04/20 02/04/20 History xxqfelupgfj-elfjfswmr-yaflhrbu 1 inh INHALATION QAM 02/04/20 02/04/20 History [Trelemayda Ellipta] Allergies Allergy/AdvReac Type Severity Reaction Status Date / Time Bactrim Allergy Severe THROAT AND Verified 02/14/17 00:52 EARS SWELL bupropion [From Wellbutrin] Allergy Severe Verified 02/04/20 21:12 sulfamethoxazole Allergy Severe THROAT AND Verified 02/04/20 21:12 EARS SWELL trimethoprim Allergy Severe THROAT AND Verified 02/04/20 21:12 EARS SWELL codeine AdvReac Intermediate STOMACH Verified 02/04/20 21:12 CRAMPS, "KNOCKS ME OUT FOR DAYS" Past Med/Surg History Medical History Acid reflux Bronchitis COPD (chronic obstructive pulmonary disease) Coronary artery disease Emphysema of lung Heart disease Hypertension Myocardial infarct Pneumonia Surgical History History of appendectomy History of hysterectomy History of tonsillectomy Stented coronary artery Social History Smoking Status: Former smoker Cigarettes Per Day: 20; Second Hand Exposure: Yes; Preferred Language: Wolof Feels Safe at Home: Yes Review of Systems A total of 10 systems reviewed and were otherwise negative Physical Exam Vital Signs Vital Signs - 24 hr 02/04/20 19:21 02/04/20 20:00 02/04/20 21:16 Temperature 36.3 C L Temperature Source Oral Pulse Rate 108 H Pulse Rate [Apical] 95 H Pulse Rhythm [Apical] Regular Pulse Strength [Apical] Normal Respiratory Rate 20 18 Respiratory Effort / Characteristics Non-Labored Spontaneous Non-Labored Spontaneous Respiratory Depth Normal Normal Respiratory Pattern Regular Regular Blood Pressure 108/67 Blood Pressure [Right Arm] 128/81 Blood Pressure Mean 80 Blood Pressure Mean [Right Arm] 96 Blood Pressure Position Sitting Blood Pressure Position [Right Arm] Lying Pulse Oximetry 99 99 98 Oxygen Delivery Method Nasal Cannula Nasal Cannula Nasal Cannula Oxygen Flow Rate 3 3 3 Sepsis Recent Fever Within 48 Hours No Sepsis New/Unexplained Change in Mental Status No Sepsis Action Taken by Nursing No Action Required 02/04/20 22:00 02/04/20 23:00 Temperature Temperature Source Pulse Rate 86 Pulse Rate [Apical] 83 Pulse Rhythm [Apical] Regular Pulse Strength [Apical] Normal Respiratory Rate 16 20 Respiratory Effort / Characteristics Non-Labored Spontaneous Respiratory Depth Normal Respiratory Pattern Regular Blood Pressure 129/74 Blood Pressure [Right Arm] 113/78 Blood Pressure Mean 83 Blood Pressure Mean [Right Arm] 89 Blood Pressure Position Blood Pressure Position [Right Arm] Lying Pulse Oximetry 96 98 Oxygen Delivery Method Room Air Oxygen Flow Rate Sepsis Recent Fever Within 48 Hours Sepsis New/Unexplained Change in Mental Status Sepsis Action Taken by Nursing General: Well developed well nourished ill-appearing older female in no acute distress, breathing comfortably on room air. Normal speech HEENT: Normal cephalic atraumatic. Pupils are equal round and reactive to light. Extraocular movements are intact. Oropharynx is pink with moist mucous membranes. No swelling of the mouth lips or tongue. Neck: Supple with a midline trachea. No meningeal signs or stiffness, no JVD or bruits. No Stridor. Chest: Clear to auscultation bilaterally. No wheezes or rhonchi. No increased work of breathing. Heart: Regular rate and rhythm without murmurs or gallops. Abdomen: Soft moderately tender lower abdomen mostly on the right. Nondistended without rebound guarding or rigidity. Extremities: No cyanosis clubbing or edema. No calf tenderness or assymetry Spine/Back. Non tender to palpation. No CVA tenderness Skin: Good turgor without rashes. Neurologic exam: Cranial nerves two through 12 are intact. Motor and sensation are intact and symmetrical throughout. Course Administered Medications Discontinued Medications Sodium Chloride (Nss) 250 mls @ 999 mls/hr IV .Q16M ONE Stop: 02/04/20 21:11 Last Infusion: 02/04/20 22:02 Dose: 0 mls/hr Documented by: [id number] Admin: 02/04/20 21:32 Dose: 999 mls/hr Documented by: [id number] Piperacillin Sod/Tazobactam (Sod 3.375 gm/ Dextrose) 100 ml in 115 mls @ 230 mls/hr IV NOW STA Stop: 02/04/20 21:28 Last Infusion: 02/04/20 22:02 Dose: 0 mls/hr Documented by: [id number] Admin: 02/04/20 21:32 Dose: 230 mls/hr Documented by: [id number] Ketorolac Tromethamine (Ketorolac Tromethamine 15 Mg/Ml Vial) 15 mg IV NOW ONE Stop: 02/04/20 22:02 Last Admin: 02/04/20 22:15 Dose: 15 mg Documented by: [id number] Medical Decision Making Differential Diagnosis Constipation, colitis, diverticulitis, appendicitis, UTI, bowel obstruction, sepsis, electrolyte or metabolic abnormality Medical Records Attestation: I reviewed the patient's medical records. Home Medications Current Medication List: was personally reviewed by me Laboratory Data Attestation: I reviewed the patient's lab results. Result diagrams: 02/04/20 20:11 02/04/20 20:11 Lab Results 02/04/20 02/04/20 02/04/20 Range/Units 20:11 20:11 21:26 WBC 40.91 H* (4.8-10.8) K/uL RBC 4.11 L (4.2-5.4) M/uL Hgb 12.7 (12.0-16.0) g/dL Hct 38.1 (37-47) % MCV 92.7 (80-100) fL MCH 30.9 (25-34) pg MCHC 33.3 (32-36) g/dL RDW Std Deviation 47.6 H (36.4-46.3) fL RDW Coeff of Luis 14.2 (11.5-14.5) % Plt Count 473 H (130-400) K/uL MPV 9.4 (7.4-10.4) fL Immature Gran % (Auto) 0.7 % Neut % (Auto) 91.4 % Lymph % (Auto) 2.5 % [place] % (Auto) 5.4 % Eos % (Auto) 0.0 % Baso % (Auto) 0.0 % Neut # (Auto) 37.36 H (1.4-6.5) K/uL Lymph # (Auto) 1.02 L (1.2-3.4) K/uL [place] # (Auto) 2.22 H (0.11-0.59) K/uL Eos # (Auto) 0.00 (0-0.5) K/uL Baso # (Auto) 0.01 (0-0.2) K/uL Immature Gran # (Auto) 0.30 H (0.00-0.02) K/uL Echinocytes 1+ Sodium 132 L (136-145) mmol/L Potassium 4.3 (3.5-5.1) mmol/L Chloride 98 (98-107) mmol/L Carbon Dioxide 25 (21-32) mmol/L Anion Gap 10.0 (3-11) BUN 26 H (7-18) mg/dl Creatinine 1.15 (0.6-1.2) mg/dl Est Cr Clr Drug Dosing 34.5 ml/min Est GFR ( Amer) 59.5 Est GFR (Non-Af Amer) 51.3 BUN/Creatinine Ratio 22.8 H (10-20) Glucose 142 H (70-99) mg/dl Lactate 1.0 (0.4-2.0) mmol/L Calcium 9.4 (8.5-10.1) mg/dl Total Bilirubin 0.8 (0.2-1) mg/dl AST 19 (15-37) U/L ALT 26 (12-78) U/L Alkaline Phosphatase 74 (45-117) U/L Troponin I < 0.015 (0-0.045) ng/ml Total Protein 7.0 (6.4-8.2) gm/dl Albumin 3.0 L (3.4-5.0) gm/dl Globulin 4.0 (2.5-4.0) gm/dl Albumin/Globulin Ratio 0.8 L (0.9-2) Lipase 57 L (73-393) U/L Imaging Data Attestation: I personally reviewed and interpreted this imaging study as follows: Radiologist's Impression: Stat rad reportcalcified atherosclerotic disease aorta with no aneurysm. Decompressed stomach with no hiatal hernia. Non specific distention of small bowel loops with fluid within the lumen may indicate ileus versus nonspecific enteritis. Increased fecal debris within the colon consistent with constipation. Distinct appendix not seen with no inflammation in the region of the cecum. Scattered diverticulosis without signs of diverticulitis. There is stranding/inflammation along the distal aspect of the colon/sigmoid region concerning for distal colitis versus paracolic colitis. Normal urinary bladder. ECG Data Attestation: I personally reviewed and interpreted this ECG as follows: Indication: + abdominal pain Rate (beats per minute): 86 Rhythm: + normal sinus ECG Intervals/blocks: + Normal QRS, + Normal QT and + Normal HI ECG [place]: + Normal (Unusual P wave axis compared to old) ECG ST segments: + Normal ST segments ECG Findings: no PACs and no PVCs Comparison ECG Date: from (06/08/19) Change: the following changes noted (P wave axis has changed compared to old) Blood Pressure Blood Pressure Findings: Normal blood pressure Blood Pressure Disposition: did not require urgent referral MDM Narrative This patient comes in as scribed above she was placed on a classroom monitor in room A12. she has had lower abdominal pain and perhaps some constipation as well she is tender most in the right lower quadrant. She tells me she has had a previous abdomen appendectomy when they did a hysterectomy she believes. IV access was established and given the fact that she has a history of CHF, I do not give her fluids initially. Blood work and urinalysis was obtained I ordered a noncontrast CAT scan. She was reassessed frequently. Her chest x-ray was clear. Her white count come back significantly elevated at 40,000 which was very concerning. I do not see any hernias on exam. Her BUN is mildly elevated as well but the rest of her labs are unremarkable. I did add a lactic acid as well as blood cultures. She was given a small fluid bolus of 250 cc IV and Zosyn 3.75 g IV. CAT scan shows an ileus or possible colitis. There is no mention of any surgical process or definite bowel obstruction or hernia. I did consult Dr. Vernon from internal medicine to see the patient in the ED. The patient was given Toradol 15 mg IV. She remained hemodynamically stable. Her lactic acid came back not elevated at 1 which is reassuring but given her elevated white count I do think she needs to be admitted for further treatment and evaluation and observation. Impression & Plan Abdominal pain, Colitis, Elevated WBC count, Nausea Discharge Plan Visit Data Chief Complaint: Constipation Stated Complaint: ABD PAIN, CONSTIPATION ED Provider: Hector Mckenzie Discharge Problem: Abdominal pain, Colitis, Elevated WBC count, Nausea Forms Stand Alone Forms: My [facility] [employer] Prescriptions Prescriptions: No Action alprazolam 0.25 mg tablet 0.25 mg PO DAILY PRN (Reason: sleep) RF: 0 atorvastatin 40 mg tablet 40 mg PO QAM RF: 0 lisinopril 2.5 mg tablet 2.5 mg PO QAM RF: 0 Combivent Respimat 20-100 mcg/actuation mist 1 puffs INH QID Qty: 3 RF: 1 aspirin [Adult Low Dose Aspirin] 81 mg tablet,delayed release (DR/EC) 81 mg PO Q2D RF: 0 levofloxacin [Levaquin] 750 mg tablet 750 mg PO DAILY 7 Days Qty: 7 RF: 0 ipratropium-albuterol 0.5 mg-3 mg(2.5 mg base)/3 mL solution for nebulization 3 ml INH QID 90 Days Qty: 540 RF: 1 escitalopram oxalate 20 mg tablet 20 mg PO QAM RF: 0 Trelegy Ellipta 100-62.5-25 mcg blister with device 1 inh INHALATION QAM RF: 0 azithromycin 250 mg tablet 250 mg PO MOWEFR RF: 0 Discharge Problem: Abdominal pain Qualifiers: Abdominal location: lower abdomen, unspecified Qualified Code(s): R10.30 - Lower abdominal pain, unspecified Elevated WBC count Qualifiers: Leukocytosis type: unspecified Qualified Code(s): D72.829 - Elevated white blood cell count, unspecified
[2020-02-04 20:47] LABS: Hematocrit (blood only) 38.1 % (37-47); Hemoglobin 12.7 g/dL (12.0-16.0); Mean Corpuscular Hemoglobin 30.9 pg (25-34); Mean Corpuscular Hgb Conc 33.3 g/dL (32-36); Mean Corpuscular Volume 92.7 fL (80-100); Mean Platelet Volume 9.4 fL (7.4-10.4); Platelet Count 473 K/uL (130-400); RDW Coefficient of Variation 14.2 % (11.5-14.5); RDW Standard Deviation 47.6 fL (36.4-46.3); Red Blood Count 4.11 M/uL (4.2-5.4); White Blood Count 40.91 K/uL (4.8-10.8)
[2020-02-04 20:50] LABS: Basophils # (auto) 0.01 K/uL (0-0.2); Echinocytes 1+; Immature Granulocytes % (auto) 0.7 %; Lymphocytes # (auto) 1.02 K/uL (1.2-3.4); Lymphocytes % (auto) 2.5 %; Monocytes # (auto) 2.22 K/uL (0.11-0.59); Monocytes % (auto) 5.4 %; Neutrophils # (auto) 37.36 K/uL (1.4-6.5); Neutrophils % (auto) 91.4 %
[2020-02-04 20:52] LABS: Alanine Aminotransferase 26 U/L (12-78); Aspartate Aminotransferase 19 U/L (15-37); BUN Creatinine Ratio 22.8 (10-20); Blood Urea Nitrogen 26 mg/dl (7-18); Calcium 9.4 mg/dl (8.5-10.1); Carbon Dioxide 25 mmol/L (21-32); Chloride 98 mmol/L (98-107); Creatinine Clr Calc Pharmacy 34.5 ml/min; Est GFR (African American) 59.5; Est GFR (Non-African American) 51.3; Glucose 142 mg/dl (70-99); Lipase 57 U/L (73-393); Potassium 4.3 mmol/L (3.5-5.1); Sodium 132 mmol/L (136-145)
[2020-02-04] MEDS ORDERED: SODIUM CHLORIDE 0.9% 250 ML IV ONE (20:56)
[2020-02-04 20:57] LABS: Albumin Globulin Ratio 0.8 (0.9-2); Alkaline Phosphatase 74 U/L (45-117); Bilirubin,Total 0.8 mg/dl (0.2-1); Troponin I < 0.015 ng/ml (0-0.045)
[2020-02-04] MEDS ORDERED: PIPERACILLIN/TAZOBACTAM 3.375 GM in DEXTROSE 5% 100 ML/100 ML BAG IV STA (20:59)
[2020-02-04] MEDS ORDERED: PIPERACILL/TAZOBAC CONSULT ACTIVE PRN (20:59)
[2020-02-04] MEDS ORDERED: KETOROLAC TROMETHAMINE 15 MG/ML VIAL IV ONE (22:01)
--- NOTE | 2020-02-04 23:19 | History & Physical Report ---
Date of Service February 04, 2020 Assessment & Plan (1) Colitis: Patient with abdominal pain, colitis noted on CT. Leukemoid reaction with WBC=40.91. She is afebrile, HD stable, chronically ill in appearance though not acutely toxic. Her abdomen is mildly distended and tender. Lactate is normal. Some concern for c. diff colitis as patient just completed a course of Levaquin. ?constipation with stercolic colitis -Check stool for c. diff and stool culture -Empiric treatment with PO Vancomycin -Dulcolax suppository -Gentle IVF and electrolyte repletion -KUB in AM -Routine General Surgery consultation appreciated Present on Admission?: Yes (2) Elevated WBC count: Patient with leukemoid reaction, WBC=40.9 with elevated neutrophils and bands. ?secondary to recent steroid use, infection, malignancy -Peripheral smear consultation -Repeat CBC in AM -Check ESR, CRP and Procalcitonin Present on Admission?: Yes (3) Lung nodule: Patient follows with Pulmonary for her severe O2 dependant COPD. Former smoker with 43 packyear history. She had a CT of the chest on 01/10/19 which demonstrated severe pulmonary emphysema and resolution of the previously seen subpleural opacities. Stable area of architectural distortion within the PERTA possibly secondary to scarring. CT from 10/07/18 with multiple irregular opacities and irregular 1.9cm opacity in the superior segment of the PETRA. Now with spiculated lesion in the LLL concerning for malignancy -CT chest prior to DC to further categorize lung mass Present on Admission?: Yes (4) Abdominal pain: Most likely secondary to colitis as above -Morphine 0.5mg IV q 2 hours as needed. Cautious use of opiates -KUB in AM Present on Admission?: Yes (5) COPD (chronic obstructive pulmonary disease): Patient with severe O2 dependant COPD. She follows with Pulmonary. States that her respiratory status has been stable -Continue supplemental O2 -Continue home inhalers, Duonebs, Combivent, Trelegy -Continue Azithromycin 250mg po q MWF Present on Admission?: Yes (6) Coronary artery disease: Chronic. Stable. Patient denies CP. No EKG evidence of ischemia -Continue ASA QOD -Continue Atorvastatin -Continue Lisinopril Present on Admission?: Yes (7) Hypertension: Blood pressure stable -Continue Lisinopril -Continue to monitor Present on Admission?: Yes (8) Anxiety: Chronic -Continue escitalopram -Alprazolam as needed for sleep F/E/N - LR at 80mL/hr x 1 liter, electrolytes WNL - check Mg and PO4 x 1, Clear liquids as tolerated Ppx - Lovenox 30 Code - DNR/DNI per discussion with patient Dispo - Admit to medical History of Present Illness Chief Complaint: diarrhea Primary Care Provider: Parrish Hadley Madi Romo is a pleasant 59yo female with history of 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 Patient states that she hasn't had a normal bowel movement for days. When she tries to have a BM or pass flatus she passes material that "looks like KY jelly". She has been having severe lower abdominal cramping as well. Poor appetite, decreased PO intake and unintentional weight loss - patient unable to quantify amount. Elevated body temperature to 99 with chills. Also with nausea and two episodes of non-bloody/non-bilious vomiting today. Today she noted some abdominal bloating and distention which is why she came to the ER. She denies chest pain/SOB/cough. Denies dysuria/rashes. No melena or hematochezia. Patient was recently diagnosed with PNA - she follows with Pulmonary and was called in a prescription for Prednisone and Levaquin - both issued on 01/22/20. Patient just completed her prednisone taper - 40mg to be tapered over 12 days as well as Levaquin 750mg po daily x 7 day course. Reports her breathing is near baseline. No increased SOB/Cough or wheeze ER Course: Toradol 15mg, Zosyn 3.375gm, NSS Allergies Allergy/AdvReac Type Severity Reaction Status Date / Time Bactrim Allergy Severe THROAT AND Verified 02/14/17 00:52 EARS SWELL bupropion [From Wellbutrin] Allergy Severe Verified 02/04/20 21:12 sulfamethoxazole Allergy Severe THROAT AND Verified 02/04/20 21:12 EARS SWELL trimethoprim Allergy Severe THROAT AND Verified 02/04/20 21:12 EARS SWELL codeine AdvReac Intermediate STOMACH Verified 02/04/20 21:12 CRAMPS, "KNOCKS ME OUT FOR DAYS" Home Medications Home Medications Medication Instructions Recorded Confirmed Type alprazolam 0.25 mg tablet 0.25 mg PO DAILY PRN 03/14/19 02/04/20 History atorvastatin 40 mg tablet 40 mg PO QAM 03/14/19 02/04/20 History ipratropium 20 mcg-albuterol 100 1 puffs INH QID #3 inhaler 03/14/19 02/04/20 Rx mcg/actuation mist for inhalation lisinopril 2.5 mg tablet 2.5 mg PO QAM 03/14/19 02/04/20 History aspirin 81 mg tablet,delayed 81 mg PO Q2D 04/25/19 02/04/20 History release ipratropium 0.5 mg-albuterol 3 mg 3 ml INH QID 90 Days #540 ml 05/18/19 02/04/20 Rx (2.5 mg base)/3 mL nebulization soln levofloxacin 750 mg tablet 750 mg PO DAILY 7 Days #7 tab 01/22/20 02/04/20 Rx azithromycin 250 mg PO MOWEFR 02/04/20 02/04/20 History escitalopram oxalate 20 mg PO QAM 02/04/20 02/04/20 History hunljplgtdl-qhlbzyufy-sfvdefee 1 inh INHALATION QAM 02/04/20 02/04/20 History [Trelegy Ellipta] Past Med/Surg History Medical History Acid reflux Bronchitis COPD (chronic obstructive pulmonary disease) Coronary artery disease Emphysema of lung Heart disease Hypertension Myocardial infarct Pneumonia Surgical History History of appendectomy History of hysterectomy History of tonsillectomy Stented coronary artery Social History Smoking Status: Former smoker Cigarettes Per Day: 20; Second Hand Exposure: Yes; Preferred Language: Bahraini Feels Safe at Home: Yes Review of Systems Review of Systems: All systems reviewed & are unremarkable except as noted in HPI & below Physical Exam Physical Exam: General: patient resting comfortably, appears older than stated age, chronically ill and cachectic, AA&O x 4 Skin: warm, dry, intact, scattered bruising on forearms HEENT: NC/AT, PERRL, EOMI, anicteric sclera, conjunctiva without injection, external ear normal to inspection and nontender, nares patent, moist mucus membranes, edentulous, no oropharyngeal lesions, neck supple, trachea midline, no LAD, no thyromegaly, no JVD Heart: +S1/S2, regular, no m/r/g Lungs: equal air entry bilaterally, diffusely diminished breath sounds, no rales/rhonchi/wheezes Abd: +BS, soft, mildly distended and diffusely tender to palpation, most in lower abdomen, with voluntary guarding. No rebound tenderness Ext: warm, 2+ pulses in UE/LE bilaterally, no clubbing/cyanosis or edema Neuro: nonfocal, patient AA&O x 4, speech intact, no facial droop, moving all extremities on command, diffusely weak Results & Data Results & Data ([facility]) Vital Signs (Past 12 Hours) Vital Signs Temp Pulse Pulse Resp BP BP Pulse Ox 02/04/20 22:00 83 16 113/78 96 02/04/20 21:16 95 H 18 128/81 98 02/04/20 20:00 99 02/04/20 19:21 36.3 C L 108 H 20 108/67 99 Laboratory Results Lab Results 02/04/20 02/04/20 02/04/20 Range/Units 20:11 20:11 21:26 WBC 40.91 H* (4.8-10.8) K/uL RBC 4.11 L (4.2-5.4) M/uL Hgb 12.7 (12.0-16.0) g/dL Hct 38.1 (37-47) % MCV 92.7 (80-100) fL MCH 30.9 (25-34) pg MCHC 33.3 (32-36) g/dL RDW Std Deviation 47.6 H (36.4-46.3) fL RDW Coeff of Luis 14.2 (11.5-14.5) % Plt Count 473 H (130-400) K/uL MPV 9.4 (7.4-10.4) fL Immature Gran % (Auto) 0.7 % Neut % (Auto) 91.4 % Lymph % (Auto) 2.5 % [place] % (Auto) 5.4 % Eos % (Auto) 0.0 % Baso % (Auto) 0.0 % Neut # (Auto) 37.36 H (1.4-6.5) K/uL Lymph # (Auto) 1.02 L (1.2-3.4) K/uL [place] # (Auto) 2.22 H (0.11-0.59) K/uL Eos # (Auto) 0.00 (0-0.5) K/uL Baso # (Auto) 0.01 (0-0.2) K/uL Immature Gran # (Auto) 0.30 H (0.00-0.02) K/uL Echinocytes 1+ Sodium 132 L (136-145) mmol/L Potassium 4.3 (3.5-5.1) mmol/L Chloride 98 (98-107) mmol/L Carbon Dioxide 25 (21-32) mmol/L Anion Gap 10.0 (3-11) BUN 26 H (7-18) mg/dl Creatinine 1.15 (0.6-1.2) mg/dl Est Cr Clr Drug Dosing 34.5 ml/min Est GFR ( Amer) 59.5 Est GFR (Non-Af Amer) 51.3 BUN/Creatinine Ratio 22.8 H (10-20) Glucose 142 H (70-99) mg/dl Lactate 1.0 (0.4-2.0) mmol/L Calcium 9.4 (8.5-10.1) mg/dl Total Bilirubin 0.8 (0.2-1) mg/dl AST 19 (15-37) U/L ALT 26 (12-78) U/L Alkaline Phosphatase 74 (45-117) U/L Troponin I < 0.015 (0-0.045) ng/ml Total Protein 7.0 (6.4-8.2) gm/dl Albumin 3.0 L (3.4-5.0) gm/dl Globulin 4.0 (2.5-4.0) gm/dl Albumin/Globulin Ratio 0.8 L (0.9-2) Lipase 57 L (73-393) U/L Diagnostic Findings CXR - by my interpretation - hyperlucency, decreased lung markings in upper lung payan, flattened diaphragms consistent with COPD, small lesion in LLL that does not seem to be there on CXR from 06/08/19. No obvious infiltrate or evidence of CHF. No pneumothorax CT Abdomen and Pelvis without contrast: No prior exam for comparison. Bilateral emphesematous changes demonstrated. Spiculated mass within the LLL measuring 2.3 x 1.2cm concerning for neoplasm. Follow-up with CT chest for further characterization recommended in [facility] nonacute setting. Normal cardiac size. Calcified atherosclerotic disease of aorta with no aneurysm. Decompress ed stomach with no hiatal hernia. Nonspecific distention of the small bowel loops with fluid in the lumen may indicate ileus versus nonspecific enteritis. Increased fecal debris within the colon consistent with constipation. Distinct appendix not seen with no inflammation in the region of the cecum. Scattered diverticulosis with no signs of diverticulitis. There is stranding/inflammation along the distal aspect of the colon/sigmoid region concerning for distal colitis versus stercoral colitis. Normal urinary bladder. Degenerative disease of the spine. Atherosclerotic disease of aorta with no aneurysm. ECG Additional Comments: EKG with rate at 86, normal axis, AS=179, QRS=68, KKa=252, no acute ischemic changes. ?anterior infarct. Patient with inverted P waves in II, III and aVF with upright in aVR - ?ectopic atrial rhythm Code Status & VTE Plan Code Status DNR/DNI VTE Prophylaxis Plan VTE Prophylaxis will be ordered: Yes PG Care Time/CCT Total # of Minutes Spent Total Time Spent with Patient: Total time spent is greater than 50% in coordination of care (as documented) at patient's floor/unit and/or counseling patient: Coding Level of Care Code 37579 Initial Inpt Care Lvl 3 Diagnoses Colitis K52.9 Elevated WBC count D72.829 Leukocytosis type: unspecified Lung nodule R91.1 Abdominal pain R10.30 Abdominal location: lower abdomen, unspecified COPD (chronic obstructive pulmonary disease) J43.9 COPD type: emphysema Emphysema type: unspecified Coronary artery disease I25.10 Coronary Disease-Associated Artery/Lesion type: [place] artery [place] vs. transplanted heart: [place] heart Associated angina: without angina Hypertension I10 Hypertension type: essential hypertension Anxiety F41.9 (1) Abdominal pain Abdominal location: lower abdomen, unspecified Qualified Code(s): R10.30 - Lower abdominal pain, unspecified (2) Elevated WBC count Leukocytosis type: unspecified Qualified Code(s): D72.829 - Elevated white blood cell count, unspecified (3) COPD (chronic obstructive pulmonary disease) COPD type: emphysema Emphysema type: unspecified Qualified Code(s): J43.9 - Emphysema, unspecified (4) Coronary artery disease Coronary Disease-Associated Artery/Lesion type: [place] artery [place] vs. transplanted heart: [place] heart Associated angina: without angina Qualified Code(s): I25.10 - Atherosclerotic heart disease of [place] coronary artery without angina pectoris (5) Hypertension Hypertension type: essential hypertension Qualified Code(s): I10 - Essential (primary) hypertension
[2020-02-05] MEDS ORDERED: LACTATED RINGER'S 1,000 ML IV SCH (00:39)
[2020-02-05] MEDS ORDERED: ONDANSETRON INJ 2 MG/ML 2 ML VIAL IV PRN (00:39)
[2020-02-05] MEDS ORDERED: bisacodyL 10 MG SUPP PR STA ×2 (00:39→14:57)
[2020-02-05 01:02] LABS: Magnesium 2.3 mg/dl (1.8-2.4); Phosphorus 4.3 mg/dl (2.5-4.9)
[2020-02-05] MEDS ORDERED: ALBUT/IPRATROP 3MG/0.5MG NEB 3 ML VIAL INH PRN (01:38)
[2020-02-05] MEDS ORDERED: Ipratropium HFA Inhaler (Combivent Respimat P&T Subs) INH PRN (01:44)
[2020-02-05] MEDS ORDERED: Albuterol HFA 8 GM Inhaler (Combivent Respimat P&T Subs) INH PRN (01:44)
[2020-02-05] MEDS: ASPIRIN 81 MG ECTAB PO SCH (01:56)
[2020-02-05] MEDS: RASPBERRY SYRUP 5 ML UDP PO SCH ×2 (01:57→06:14)
[2020-02-05] MEDS: VANCOMYCIN HCL 125 MG/2.5ML SOLN PO SCH ×2 (01:57→06:14)
[2020-02-05] MEDS: MoRPHine SULFATE 2 MG/ML CARP IV PRN ×6 (02:13→21:25)
[2020-02-05 03:18] LABS: Appearance Urine Cloudy (Clear); Blood Urine Trace (Negative); Color Urine Dark Yellow; Epithelial Cell Urine Auto >30 /lpf (0-5); Glucose Urine UA Negative (Negative); Ketones Urine 1+ (Negative); Leukocyte Esterase Urine Trace (Negative); Nitrite Urine Negative (Negative); Protein Urine 1+ (Negative); RBC Urine Automated 0-4 /hpf (0-4); Specific Gravity Urine 1.027 (1.000-1.030); Urobilinogen Urine Negative (Negative)
[2020-02-05 03:40] LABS: Bilirubin Urine Negative (Negative); Ictotest Urine Negative (Negative)
[2020-02-05 03:42] LABS: Bacteria Urine Automated 2+ (Negative)
[2020-02-05 03:44] LABS: Uric Acid Crystals Urine Present (None Prsent)
[2020-02-05] MEDS ORDERED: INFLUENZA ADMINISTRATION CHARGE ONE (04:52)
[2020-02-05] MEDS ORDERED: INFLUENZA VIRUS QUAD VACCINE 0.5 ML SYR IM ONE (04:52)
[2020-02-05] MEDS ORDERED: ALBUT/IPRATROP 3MG/0.5MG NEB 3 ML VIAL INH SCH (07:00)
--- NOTE | 2020-02-05 07:44 | XRay Report ---
SINGLE VIEW CHEST CLINICAL HISTORY: Generalized abdominal pain. FINDINGS: 2 AP, portable, upright chest radiographs are compared to study dated 06/08/2019 and correla marychuy with chest CT dated 01/10/2019. The examination is degraded by portable technique and patient rotat ion. The cardiomediastinal silhouette is unremarkable noting atherosclerotic calcification of the tho racic aorta. Emphysema and chronic interstitial thickening are similar to previous. Apical scarring i s observed. No airspace consolidation or large pleural effusion is identified. There is an irregular nodular density at the left lung base. No pneumothorax is seen. The skeletal structures are osteopeni c. The bony thorax is grossly intact. IMPRESSION: 1. Emphysematous change with no active disease in the chest. 2. There is an irregular nodular density at the left lung base. This is pathologically indeterminant and correlation with a dedicated chest CT is recommended for further assessment. ACT 112: Negative or not required by law. Electronically signed by: Aris Parrish M.D. 02/05/2020 7:43 AM
--- NOTE | 2020-02-05 07:48 | CT Scan Report ---
ABDOMEN AND PELVIS CT WITHOUT CONTRAST CT DOSE: 230.60 mGy.cm HISTORY: lower abd pain, constipation TECHNIQUE: Multiaxial CT images of the abdomen and pelvis were performed without contrast. A dose lo wering technique was utilized adhering to the principles of ALARA. COMPARISON STUDY: Chest CT 01/10/2029. FINDINGS: Emphysema is noted at the lung bases. Focal irregular densities within the left lung base. Dominant irregular density in image 1 measures 2.4 x 1.5 cm. These were not present on the 01/10/[address] follow-up recommended to exclude the possibility of a pulmonary mass. No pneumop eritoneum. No pneumatosis. Moderate osteoarthritis within the bilateral hips. Old right L5 transverse process fracture. The unenhanced liver, gallbladder, pancreas, spleen, adrenal glands, and kidneys a re unremarkable. No retroperitoneal lymphadenopathy. Mild calcified plaque within the normal caliber abdominal aorta. The bladder is unremarkable. The uterus is surgically absent. The appendix is not id entified and reportedly surgically absent. There is inflammatory change within the deep pelvis surrou nding the mid to distal sigmoid colon. There is moderate stool within the distal sigmoid colon and in terval colonic diverticula. No evidence for bowel obstruction. IMPRESSION: 1. Inflammatory change in the deep pelvis surrounding the mid to distal sigmoid colon which demonstra chito mild wall thickening. This favors a nonspecific colitis and could represent a stercoral colitis g iven the moderate amount of stool within the colon. An acute diverticulitis could also have a similar appearance. No perforation or abscess. 2. Focal irregular density within the left lung base. Dominant irregular density measures 2.4 x 1.5 c m. This could represent pneumonia or a pulmonary mass. 3 month follow-up chest CT and pulmonary consu ltation recommended for further evaluation. 3. Emphysema. ACT 112: Positive. There are findings on this exam that require communication between the performing entity and the patient following Patient Test Result Information Act ([place] Act 112) guidelines. Electronically signed by: John Griffith M.D. 02/05/2020 7:47 AM
[2020-02-05 08:05] LABS: Hematocrit (blood only) 35.1 % (37-47); Hemoglobin 11.5 g/dL (12.0-16.0); Mean Corpuscular Hemoglobin 30.4 pg (25-34); Mean Corpuscular Hgb Conc 32.8 g/dL (32-36); Mean Corpuscular Volume 92.9 fL (80-100); Platelet Count 392 K/uL (130-400); Red Blood Count 3.78 M/uL (4.2-5.4); White Blood Count 33.53 K/uL (4.8-10.8)
[2020-02-05 08:19] LABS: Prothrombin Time 10.8 Seconds (9.0-12.0)
[2020-02-05 08:24] LABS: Eosinophils # (auto) 0.01 K/uL (0-0.5); Immature Granulocytes # (auto) 0.17 K/uL (0.00-0.02); Immature Granulocytes % (auto) 0.5 %; Lymphocytes # (auto) 1.21 K/uL (1.2-3.4); Lymphocytes % (auto) 3.6 %; Monocytes # (auto) 1.66 K/uL (0.11-0.59); Neutrophils # (auto) 30.48 K/uL (1.4-6.5); Neutrophils % (auto) 90.9 %
[2020-02-05 08:40] LABS: BUN Creatinine Ratio 32.7 (10-20); Calcium 9.2 mg/dl (8.5-10.1); Creatinine Clr Calc Pharmacy 47.8 ml/min; Est GFR (African American) 95.1; Est GFR (Non-African American) 82.1
[2020-02-05] MEDS ORDERED: AZITHROMYCIN 250 MG TAB PO SCH (09:00)
[2020-02-05] MEDS ORDERED: IPRATROPIUM BROMIDE/ALBUTEROL respimat INH INH SCH (09:00)
[2020-02-05] MEDS: ENOXAPARIN INJ 30 MG/0.3 ML SYR SQ SCH (09:53)
[2020-02-05] MEDS: UMECLIDINIUM/VILANTEROL 62.5/25MCG 7 PUFFS/INHALER INH SCH (09:53)
[2020-02-05] MEDS: ESCITALOPRAM OXALATE 20 MG TAB PO SCH (09:54)
[2020-02-05] MEDS: FLUTICASONE FUROATE 100MCG 14 PUFFS/INHALER INH SCH (09:54)
[2020-02-05] MEDS: ATORVASTATIN 40 MG TAB PO SCH (09:54)
[2020-02-05] MEDS: ACETAMINOPHEN 325 MG TAB PO PRN (10:39)
[2020-02-05] MEDS ORDERED: SOD PHOSPHATE/SOD BIPHOSPHATE ENEMA 132 ML BTL PR PRN (11:01)
[2020-02-05] MEDS: SIMETHICONE 80 MG CHEW PO PRN (12:11)
[2020-02-05] MEDS: POLYETHYLENE (MIRALAX) 17 GM PACK PO SCH (12:13)
[2020-02-05] MEDS: metroNIDAZOLE 500 MG/100 ML BAG IV SCH ×2 (12:28→20:02)
[2020-02-05] MEDS: CIPROFLOXACIN / D5W 400 MG/200 ML BAG IV SCH ×2 (12:30→23:10)
--- NOTE | 2020-02-05 13:00 | XRay Report ---
KUB CLINICAL HISTORY: colitis, abdominal distention COMPARISON STUDY: CT of the abdomen and pelvis February 04, 2020. FINDINGS: A left lower lobe density is better depicted on the abdominal CT. A large amount of stool w ithin the distal colon is similar to prior CT. Mild gaseous distention of the colon is also similar t o prior CT. IMPRESSION: 1. No significant change in mild gaseous distention of the colon since prior CT. 2. Large amount stool within the distal colon. 3. Left lower lobe pulmonary nodule better depicted on prior abdominal CT. ACT 112: Negative or not required by law. Electronically signed by: Alex Almaguer M.D. 02/05/2020 12:59 PM
--- NOTE | 2020-02-05 14:47 | Surgery Consultation ---
Date of Consultation February 05, 2020 Assessment & Plan (1) Abdominal pain: (2) Colitis: pt is a 59 year-old female who was admitted to hospital for lower abdominal pain, IMP: colitis, Plan, no emergent surgery indication now, recommend consult GI for sigmoidoscopy to R/O colon obstruction, and co-manage colitis, continue treatment for colitis with IV antibiotic, repeat labs in am, will F/U, pt agrees with the plan, I answered all questions, Present on Admission?: Yes History of Present Illness Attending Physician: Home Gibbs, DO History of Present Illness Chief Complaint: diarrhea Primary Care Provider: Parrish Hadley Madi Romo is a pleasant 59yo female with history of 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 Patient states that she hasn't had a normal bowel movement for days. When she tries to have a BM or pass flatus she passes material that "looks like KY jelly". She has been having severe lower abdominal cramping as well. Poor appetite, decreased PO intake and unintentional weight loss - patient unable to quantify amount. Elevated body temperature to 99 with chills. Also with nausea and two episodes of non-bloody/non-bilious vomiting today. Today she noted some abdominal bloating and distention which is why she came to the ER. She denies chest pain/SOB/cough. Denies dysuria/rashes. No melena or hematochezia. Patient was recently diagnosed with PNA - she follows with Pulmonary and was called in a prescription for Prednisone and Levaquin - both issued on 01/22/20. Patient just completed her prednisone taper - 40mg to be tapered over 12 days as well as Levaquin 750mg po daily x 7 day course. Reports her breathing is near baseline. No increased SOB/Cough or wheeze I was asked for consult her colitis, I reviewed pt's H/P, labs, CT scan , KUB with pt, pt is still have mild lower abdominal pain, passed gas, liquid BM, ER Course: Toradol 15mg, Zosyn 3.375gm, NSS Allergies Allergy/AdvReac Type Severity Reaction Status Date / Time Bactrim Allergy Severe THROAT AND Verified 02/14/17 00:52 EARS SWELL bupropion [From Wellbutrin] Allergy Severe Verified 02/04/20 21:12 sulfamethoxazole Allergy Severe THROAT AND Verified 02/04/20 21:12 EARS SWELL trimethoprim Allergy Severe THROAT AND Verified 02/04/20 21:12 EARS SWELL codeine AdvReac Intermediate STOMACH Verified 02/04/20 21:12 CRAMPS, "KNOCKS ME OUT FOR DAYS" Home Medications Home Medications Medication Instructions Recorded Confirmed Type alprazolam 0.25 mg tablet 0.25 mg PO DAILY PRN 03/14/19 02/04/20 History atorvastatin 40 mg tablet 40 mg PO QAM 03/14/19 02/04/20 History ipratropium 20 mcg-albuterol 100 1 puffs INH QID #3 inhaler 03/14/19 02/04/20 Rx mcg/actuation mist for inhalation lisinopril 2.5 mg tablet 2.5 mg PO QAM 03/14/19 02/04/20 History aspirin 81 mg tablet,delayed 81 mg PO Q2D 04/25/19 02/04/20 History release ipratropium 0.5 mg-albuterol 3 mg 3 ml INH QID 90 Days #540 ml 05/18/19 02/04/20 Rx (2.5 mg base)/3 mL nebulization soln levofloxacin 750 mg tablet 750 mg PO DAILY 7 Days #7 tab 01/22/20 02/04/20 Rx azithromycin 250 mg PO MOWEFR 02/04/20 02/04/20 History escitalopram oxalate 20 mg PO QAM 02/04/20 02/04/20 History rqibxdreoua-kkbptufyg-mgarfpbu 1 inh INHALATION QAM 02/04/20 02/04/20 History [Trelegy Ellipta] Past Med/Surg History Medical History Acid reflux Bronchitis COPD (chronic obstructive pulmonary disease) Coronary artery disease Emphysema of lung Heart disease Hypertension Myocardial infarct Pneumonia Surgical History History of appendectomy History of hysterectomy History of tonsillectomy Stented coronary artery Social History Smoking Status: Former smoker Cigarettes Per Day: 20; Second Hand Exposure: Yes; Preferred Language: Czech Feels Safe at Home: Yes Review of Systems Review of Systems: All systems reviewed & are unremarkable except as noted in HPI & below Allergies Allergy/AdvReac Type Severity Reaction Status Date / Time Bactrim Allergy Severe THROAT AND Verified 02/14/17 00:52 EARS SWELL bupropion [From Wellbutrin] Allergy Severe Verified 02/04/20 21:12 sulfamethoxazole Allergy Severe THROAT AND Verified 02/04/20 21:12 EARS SWELL trimethoprim Allergy Severe THROAT AND Verified 02/04/20 21:12 EARS SWELL codeine AdvReac Intermediate STOMACH Verified 02/04/20 21:12 CRAMPS, "KNOCKS ME OUT FOR DAYS" Home Medications Home Medications Medication Instructions Recorded Confirmed Type alprazolam 0.25 mg tablet 0.25 mg PO DAILY PRN 03/14/19 02/04/20 History atorvastatin 40 mg tablet 40 mg PO QAM 03/14/19 02/04/20 History lisinopril 2.5 mg tablet 2.5 mg PO QAM 03/14/19 02/04/20 History aspirin 81 mg tablet,delayed 81 mg PO Q2D 04/25/19 02/04/20 History release levofloxacin 750 mg tablet 750 mg PO DAILY 7 Days #7 tab 01/22/20 02/04/20 Rx azithromycin 250 mg PO MOWEFR 02/04/20 02/04/20 History escitalopram oxalate 20 mg PO QAM 02/04/20 02/04/20 History nrakphvscvq-rdlwqkryk-anszghgg 1 inh INHALATION QAM 02/04/20 02/04/20 History [Trelegy Ellipta] ipratropium-albuterol 3 ml INHALATION QID PRN 02/05/20 02/05/20 History ipratropium-albuterol [Combivent 1 puff INHALATION QID PRN 02/05/20 02/05/20 History Respimat] Patient History Medical History Acid reflux Bronchitis COPD (chronic obstructive pulmonary disease) Coronary artery disease Emphysema of lung Heart disease Hypertension Myocardial infarct Pneumonia Surgical History History of appendectomy History of hysterectomy History of tonsillectomy Stented coronary artery Social History Smoking Status: Former smoker Cigarettes Per Day: 20; Second Hand Exposure: Yes; Do You Dip or Chew Tobacco: No; Tobacco Cessation Education Requested by Patient: No Hx Alcohol Use: No Hx Substance Use: No Preferred Language: Czech Beliefs That Will Affect Care: None Current Living Situation: Spouse Current Living Situation Comment: Other Information That Helps Us Care for You: No Feels Safe at Home: Yes Safety Concerns: Feels Safe At This Time Assistive Devices: None Review of Systems 2 Review of Systems: All systems reviewed & are unremarkable except as noted in HPI & below Constitutional: as per Subjective / HPI Eyes: as per Subjective / HPI Ear, Nose, Mouth, Throat: as per Subjective / HPI Respiratory: as per Subjective / HPI COPD, lung nodule, emphysema Cardiovascular: as per Subjective / HPI Additional Comments: CAD, HTN, [place] Gastrointestinal: as per Subjective / HPI Genitourinary: as per Subjective / HPI Musculoskeletal: as per Subjective / HPI Integumentary: as per Subjective / HPI Neurologic: as per Subjective / HPI Psychiatric: as per Subjective / HPI anxity Endocrine: as per Subjective / HPI Hematologic / Lymphatic: as per Subjective / HPI Physical Exam Constitutional: WD/WN, vitals as above + ill appearing Eyes: PERRL, conjunctivae normal, anicteric sclerae ENMT: external ear and nose normal, oropharynx normal Neck: trachea midline, no thyromegaly Respiratory: normal respiratory effort, lungs clear to auscultation Cardiovascular: RRR, no murmur, no edema Rate/Rhythm: regular rate and regu lar rhythm Heart Sounds: normal S1 and normal S2 Gastrointestinal (Abdomen): mild tenderness at lower abdomen, no rebound pain, mild distend, BS + Musculoskeletal: no cyanosis or clubbing, extremities motor strength 5/5 Skin: no rashes, warm and dry Neurologic: patellar DTR's 2+ bilat, sensation intact Psychiatric: Orientation: alert and oriented x 3 Results & Data ([facility]) Vital Signs (Past 12 Hours) Vital Signs Temp Pulse Pulse Resp BP Pulse Ox 02/05/20 10:57 36.9 C 91 H 20 121/75 91 02/05/20 08:06 36.6 C 85 16 119/74 100 02/05/20 07:18 85 02/05/20 04:05 37.0 C 88 20 114/65 97 Laboratory Results Abnormal lab results 02/04/20 02/04/20 02/04/20 Range/Units 20:11 20:11 21:00 WBC 40.91 H* (4.8-10.8) K/uL RBC 4.11 L (4.2-5.4) M/uL Hgb (12.0-16.0) g/dL Hct (37-47) % RDW Std Deviation 47.6 H (36.4-46.3) fL Plt Count 473 H (130-400) K/uL Neut # (Auto) 37.36 H (1.4-6.5) K/uL Lymph # (Auto) 1.02 L (1.2-3.4) K/uL [place] # (Auto) 2.22 H (0.11-0.59) K/uL Immature Gran # (Auto) 0.30 H (0.00-0.02) K/uL ESR 47 H (0-21) mm/hr Sodium 132 L (136-145) mmol/L Chloride (98-107) mmol/L BUN 26 H (7-18) mg/dl BUN/Creatinine Ratio 22.8 H (10-20) Glucose 142 H (70-99) mg/dl C-Reactive Protein 30.90 H (0-0.29) mg/dl Albumin 3.0 L (3.4-5.0) gm/dl Albumin/Globulin Ratio 0.8 L (0.9-2) Lipase 57 L (73-393) U/L Procalcitonin (0-0.5) ng/ml Urine Appearance (Clear) Urine Protein (Negative) Urine Ketones (Negative) Urine Blood (Negative) Ur Leukocyte Esterase (Negative) Urine WBC (Auto) (0-5) /hpf U Hyaline Cast (Auto) (0-5) /lpf U Epithel Cells (Auto) (0-5) /lpf Urine Bacteria (Auto) (Negative) Uric Acid Crystals (None Prsent) Granular Casts (0) /lpf 02/04/20 02/05/20 02/05/20 Range/Units 21:00 03:10 07:50 WBC 33.53 H* (4.8-10.8) K/uL RBC 3.78 L (4.2-5.4) M/uL Hgb 11.5 L (12.0-16.0) g/dL Hct 35.1 L (37-47) % RDW Std Deviation 47.0 H (36.4-46.3) fL Plt Count (130-400) K/uL Neut # (Auto) 30.48 H (1.4-6.5) K/uL Lymph # (Auto) (1.2-3.4) K/uL [place] # (Auto) 1.66 H (0.11-0.59) K/uL Immature Gran # (Auto) 0.17 H (0.00-0.02) K/uL ESR (0-21) mm/hr Sodium (136-145) mmol/L Chloride (98-107) mmol/L BUN (7-18) mg/dl BUN/Creatinine Ratio (10-20) Glucose (70-99) mg/dl C-Reactive Protein (0-0.29) mg/dl Albumin (3.4-5.0) gm/dl Albumin/Globulin Ratio (0.9-2) Lipase (73-393) U/L Procalcitonin 1.93 H (0-0.5) ng/ml Urine Appearance Cloudy A (Clear) Urine Protein 1+ H (Negative) Urine Ketones 1+ H (Negative) Urine Blood Trace H (Negative) Ur Leukocyte Esterase Trace H (Negative) Urine WBC (Auto) 5-10 H (0-5) /hpf U Hyaline Cast (Auto) 10-30 H (0-5) /lpf U Epithel Cells (Auto) >30 H (0-5) /lpf Urine Bacteria (Auto) 2+ H (Negative) Uric Acid Crystals Present A (None Prsent) Granular Casts 1-5 H (0) /lpf 02/05/20 Range/Units 07:50 WBC (4.8-10.8) K/uL RBC (4.2-5.4) M/uL Hgb (12.0-16.0) g/dL Hct (37-47) % RDW Std Deviation (36.4-46.3) fL Plt Count (130-400) K/uL Neut # (Auto) (1.4-6.5) K/uL Lymph # (Auto) (1.2-3.4) K/uL [place] # (Auto) (0.11-0.59) K/uL Immature Gran # (Auto) (0.00-0.02) K/uL ESR (0-21) mm/hr Sodium 132 L (136-145) mmol/L Chloride 97 L (98-107) mmol/L BUN 26 H (7-18) mg/dl BUN/Creatinine Ratio 32.7 H (10-20) Glucose 102 H (70-99) mg/dl C-Reactive Protein (0-0.29) mg/dl Albumin (3.4-5.0) gm/dl Albumin/Globulin Ratio (0.9-2) Lipase (73-393) U/L Procalcitonin (0-0.5) ng/ml Urine Appearance (Clear) Urine Protein (Negative) Urine Ketones (Negative) Urine Blood (Negative) Ur Leukocyte Esterase (Negative) Urine WBC (Auto) (0-5) /hpf U Hyaline Cast (Auto) (0-5) /lpf U Epithel Cells (Auto) (0-5) /lpf Urine Bacteria (Auto) (Negative) Uric Acid Crystals (None Prsent) Granular Casts (0) /lpf Diagnostic Findings ABDOMEN AND PELVIS CT WITHOUT CONTRAST CT DOSE: 230.60 mGy.cm HISTORY: lower abd pain, constipation TECHNIQUE: Multiaxial CT images of the abdomen and pelvis were performed without contrast. A dose lowering technique was utilized adhering to the principles of ALARA. COMPARISON STUDY: Chest CT 01/10/2029. FINDINGS: Emphysema is noted at the lung bases. Focal irregular densities within the left lung base. Dominant irregular density in image 1 measures 2.4 x 1.5 cm. These were not present on the 01/10/[address] follow-up recommended to exclude the possibility of a pulmonary mass. No pneumoperitoneum. No pneumatosis. Moderate osteoarthritis within the bilateral hips. Old right L5 transverse process fracture. The unenhanced liver, gallbladder, pancreas, spleen, adrenal glands, and kidneys are unremarkable. No retroperitoneal lymphadenopathy. Mild calcified plaque within the normal caliber abdominal aorta. The bladder is unremarkable. The uterus is surgically absent. The appendix is not identified and reportedly surgically absent. There is inflammatory change within the deep pelvis surrounding the mid to distal sigmoid colon. There is moderate stool within the distal sigmoid colon and interval colonic diverticula. No evidence for bowel obstruction. IMPRESSION: 1. Inflammatory change in the deep pelvis surrounding the mid to distal sigmoid colon which demonstrates mild wall thickening. This favors a nonspecific colitis and could represent a stercoral colitis given the moderate amount of stool within the colon. An acute diverticulitis could also have a similar appearance. No perforation or abscess. 2. Focal irregular density within the left lung base. Dominant irregular density measures 2.4 x 1.5 cm. This could represent pneumonia or a pulmonary mass. 3 month follow-up chest CT and pulmonary consultation recommended for further evaluation. 3. Emphysema. KUB CLINICAL HISTORY: colitis, abdominal distention COMPARISON STUDY: CT of the abdomen and pelvis February 04, 2020. FINDINGS: A left lower lobe density is better depicted on the abdominal CT. A large amount of stool within the distal colon is similar to prior CT. Mild gaseous distention of the colon is also similar to prior CT. IMPRESSION: 1. No significant change in mild gaseous distention of the colon since prior CT. 2. Large amount stool within the distal colon. 3. Left lower lobe pulmonary nodule better depicted on prior abdominal CT. (1) Abdominal pain Abdominal location: lower abdomen, unspecified Qualified Code(s): R10.30 - Lower abdominal pain, unspecified
--- NOTE | 2020-02-05 15:55 | Hospitalist Progress Note ---
Date of Service February 05, 2020 Assessment & Plan (1) Colitis: Patient with abdominal pain, colitis noted on CT. Leukemoid reaction with WBC=40.91. She is afebrile, HD stable, chronically ill in appearance though not acutely toxic. based on CT, would be concerned for stercoral colitis, diverticulitis she has bowels sounds, + flatus, burping, no bowel movement with suppository or enema C diff negative, stop Vanco PO continue on Cipro/Flagyl IV, WBC down to 33k, 90% PMN continue LR at 80cc/hr appreciate general surgery consultation will ask gastroenterology to evaluate, consider colon obstruction? (2) Elevated WBC count: Patient with leukemoid reaction, WBC=40.9 with elevated neutrophils and bands. ?secondary to recent steroid use, infection, malignancy appreciate peripheral smear evaluation, no evidence of malignant cells predominant PMN suggesting acute infection WBC down a little to 33k continue cipro/flagyl, stop Vanco PO as C diff gene negative (3) Lung nodule: Patient follows with Pulmonary for her severe O2 dependant COPD. Former smoker with 43 packyear history. She had a CT of the chest on 01/10/19 which demonstrated severe pulmonary emphysema and resolution of the previously seen subpleural opacities. Stable area of architectural distortion within the PETRA possibly secondary to scarring. CT from 10/07/18 with multiple irregular opacities and irregular 1.9cm opacity in the superior segment of the PETRA. Now with spiculated lesion in the LLL concerning for malignancy will plan for CT chest this admission, wait to see what GI recommends (4) Abdominal pain: Most likely secondary to colitis as above -Morphine 0.5mg IV q 2 hours as needed. Cautious use of opiates pain is the same as admission, slightly distended (5) COPD (chronic obstructive pulmonary disease): Patient with severe O2 dependant COPD. She follows with Pulmonary. States that her respiratory status has been stable -Continue supplemental O2 -Continue home inhalers, Duonebs, Combivent, Trelegy hold Azithromycin for now due to interaction with Cipro (6) Coronary artery disease: Chronic. Stable. Patient denies CP. No EKG evidence of ischemia -Continue ASA QOD -Continue Atorvastatin -Continue Lisinopril (7) Hypertension: Blood pressure stable -Continue Lisinopril -Continue to monitor (8) Anxiety: Chronic -Continue escitalopram -Alprazolam as needed for sleep F/E/N - LR at 80mL/hr x 1 liter, electrolytes WNL - check Mg and PO4 x 1, Clear liquids as tolerated Ppx - Lovenox 30 Code - DNR/DNI per discussion with patient Dispo - Admit to medical Admission and Anticipated Discharge Date Admission Date: February 05, 2020 Subjective patient doing okay, c/o a lot of gas, both flatus and burping, her abdomen feels distended she did not have success with the suppository this morning tried a Fleets enema, no success with that either no chest pain, no dyspnea, no fever/chills reviewed the CT report, shows colitis, severe constipation, could not rule out diverticulitis of note, her C diff test was negative appreciate consultation from Dr. Nguyễn, he will ask gastroenterology to evaluate, consider obstruction in colon reviewed labs from admission and this morning Review of Systems Review of Systems: All systems reviewed & are unremarkable except as noted in Subjective Physical Exam Constitutional: well developed, + thin and + frail appearing; no acute distress Eyes: PERRL, conjunctivae normal, anicteric sclerae ENMT: external ear and nose normal, oropharynx normal Neck: trachea midline, no thyromegaly Respiratory: normal respiratory effort, lungs clear to auscultation Cardiovascular: RRR, no murmur, no edema Gastrointestinal (Abdomen): Inspection/Auscultation: + abdomen distended and normal bowel sounds Percussion/Palpation: + abdomen tender and + abdomen firm; no guarding, abdomen not rigid and no ascites Musculoskeletal: no cyanosis or clubbing, extremities motor strength 5/5 Skin: no rashes, warm and dry Neurologic: patellar DTR's 2+ bilat, sensation intact and PERRL, EOMI, accommodation nl, no face palsy, no dysarthria Psychiatric: A+Ox3, euthymic affect Lymphatic: no cervical or axillary lymphadenopathy Results & Data Results & Data ([facility]) Vital Signs (Past 12 Hours) Vital Signs Temp Pulse Pulse Resp BP Pulse Ox 02/05/20 14:59 36.9 C 84 16 109/72 98 02/05/20 14:54 86 02/05/20 10:57 36.9 C 91 H 20 121/75 91 02/05/20 08:06 36.6 C 85 16 119/74 100 02/05/20 07:18 85 02/05/20 04:05 37.0 C 88 20 114/65 97 Laboratory Results Laboratory Results - last 24 hr 02/04/20 02/04/20 02/04/20 20:11 20:11 21:00 WBC 40.91 H* RBC 4.11 L Hgb 12.7 Hct 38.1 MCV 92.7 MCH 30.9 MCHC 33.3 RDW Std Deviation 47.6 H RDW Coeff of Luis 14.2 Plt Count 473 H MPV 9.4 Immature Gran % (Auto) 0.7 Neut % (Auto) 91.4 Lymph % (Auto) 2.5 Barron % (Auto) 5.4 Eos % (Auto) 0.0 Baso % (Auto) 0.0 Neut # (Auto) 37.36 H Lymph # (Auto) 1.02 L Barron # (Auto) 2.22 H Eos # (Auto) 0.00 Baso # (Auto) 0.01 Immature Gran # (Auto) 0.30 H Echinocytes 1+ Peripher Smr Path Cons ESR 47 H PT INR Sodium 132 L Potassium 4.3 Chloride 98 Carbon Dioxide 25 Anion Gap 10.0 BUN 26 H Creatinine 1.15 Est Cr Clr Drug Dosing 34.5 Est GFR ( Amer) 59.5 Est GFR (Non-Af Amer) 51.3 BUN/Creatinine Ratio 22.8 H Glucose 142 H Lactate Calcium 9.4 Phosphorus 4.3 Magnesium 2.3 Total Bilirubin 0.8 AST 19 ALT 26 Alkaline Phosphatase 74 Troponin I < 0.015 C-Reactive Protein 30.90 H Total Protein 7.0 Albumin 3.0 L Globulin 4.0 Albumin/Globulin Ratio 0.8 L Lipase 57 L Procalcitonin Urine Color Urine Appearance Urine pH Ur Specific [place] Urine Protein Urine Glucose (UA) Urine Ketones Urine Blood Urine Nitrite Urine Bilirubin Urine Urobilinogen Ur Leukocyte Esterase Urine WBC (Auto) Urine RBC (Auto) U Hyaline Cast (Auto) U Epithel Cells (Auto) Urine Bacteria (Auto) Uric Acid Crystals Granular Casts Urine Yeast Stl C. diff Tox B Gene 02/04/20 02/04/20 02/05/20 21:00 21:26 03:10 WBC RBC Hgb Hct MCV MCH MCHC RDW Std Deviation RDW Coeff of Luis Plt Count MPV Immature Gran % (Auto) Neut % (Auto) Lymph % (Auto) Barron % (Auto) Eos % (Auto) Baso % (Auto) Neut # (Auto) Lymph # (Auto) Barron # (Auto) Eos # (Auto) Baso # (Auto) Immature Gran # (Auto) Echinocytes Peripher Smr Path Cons ESR PT INR Sodium Potassium Chloride Carbon Dioxide Anion Gap BUN Creatinine Est Cr Clr Drug Dosing Est GFR ( Amer) Est GFR (Non-Af Amer) BUN/Creatinine Ratio Glucose Lactate 1.0 Calcium Phosphorus Magnesium Total Bilirubin AST ALT Alkaline Phosphatase Troponin I C-Reactive Protein Total Protein Albumin Globulin Albumin/Globulin Ratio Lipase Procalcitonin 1.93 H Urine Color Dark Yellow Urine Appearance Cloudy A Urine pH 5.0 Ur Specific [place] 1.027 Urine Protein 1+ H Urine Glucose (UA) Negative Urine Ketones 1+ H Urine Blood Trace H Urine Nitrite Negative Urine Bilirubin Negative Urine Urobilinogen Negative Ur Leukocyte Esterase Trace H Urine WBC (Auto) 5-10 H Urine RBC (Auto) 0-4 U Hyaline Cast (Auto) 10-30 H U Epithel Cells (Auto) >30 H Urine Bacteria (Auto) 2+ H Uric Acid Crystals Present A Granular Casts 1-5 H Urine Yeast Not Reportable Stl C. diff Tox B Gene 02/05/20 02/05/20 02/05/20 07:50 07:50 07:50 WBC 33.53 H* RBC 3.78 L Hgb 11.5 L Hct 35.1 L MCV 92.9 MCH 30.4 MCHC 32.8 RDW Std Deviation 47.0 H RDW Coeff of Luis 14.0 Plt Count 392 MPV 9.0 Immature Gran % (Auto) 0.5 Neut % (Auto) 90.9 Lymph % (Auto) 3.6 Barron % (Auto) 5.0 Eos % (Auto) 0.0 Baso % (Auto) 0.0 Neut # (Auto) 30.48 H Lymph # (Auto) 1.21 Barron # (Auto) 1.66 H Eos # (Auto) 0.01 Baso # (Auto) 0.00 Immature Gran # (Auto) 0.17 H Echinocytes Peripher Smr Path Cons ESR PT 10.8 INR 1.0 Sodium 132 L Potassium 4.0 Chloride 97 L Carbon Dioxide 26 Anion Gap 9.0 BUN 26 H Creatinine 0.78 D Est Cr Clr Drug Dosing 47.8 Est GFR ( Amer) 95.1 Est GFR (Non-Af Amer) 82.1 BUN/Creatinine Ratio 32.7 H Glucose 102 H Lactate Calcium 9.2 Phosphorus Magnesium Total Bilirubin AST ALT Alkaline Phosphatase Troponin I C-Reactive Protein Total Protein Albumin Globulin Albumin/Globulin Ratio Lipase Procalcitonin Urine Color Urine Appearance Urine pH Ur Specific [place] Urine Protein Urine Glucose (UA) Urine Ketones Urine Blood Urine Nitrite Urine Bilirubin Urine Urobilinogen Ur Leukocyte Esterase Urine WBC (Auto) Urine RBC (Auto) U Hyaline Cast (Auto) U Epithel Cells (Auto) Urine Bacteria (Auto) Uric Acid Crystals Granular Casts Urine Yeast Stl C. diff Tox B Gene 02/05/20 02/05/20 07:50 09:02 WBC RBC Hgb Hct MCV MCH MCHC RDW Std Deviation RDW Coeff of Luis Plt Count MPV Immature Gran % (Auto) Neut % (Auto) Lymph % (Auto) Barron % (Auto) Eos % (Auto) Baso % (Auto) Neut # (Auto) Lymph # (Auto) Barron # (Auto) Eos # (Auto) Baso # (Auto) Immature Gran # (Auto) Echinocytes Peripher Smr Path Cons ESR PT INR Sodium Potassium Chloride Carbon Dioxide Anion Gap BUN Creatinine Est Cr Clr Drug Dosing Est GFR ( Amer) Est GFR (Non-Af Amer) BUN/Creatinine Ratio Glucose Lactate 1.3 Calcium Phosphorus Magnesium Total Bilirubin AST ALT Alkaline Phosphatase Troponin I C-Reactive Protein Total Protein Albumin Globulin Albumin/Globulin Ratio Lipase Procalcitonin Urine Color Urine Appearance Urine pH Ur Specific [place] Urine Protein Urine Glucose (UA) Urine Ketones Urine Blood Urine Nitrite Urine Bilirubin Urine Urobilinogen Ur Leukocyte Esterase Urine WBC (Auto) Urine RBC (Auto) U Hyaline Cast (Auto) U Epithel Cells (Auto) Urine Bacteria (Auto) Uric Acid Crystals Granular Casts Urine Yeast Stl C. diff Tox B Gene Negative Cdiff Gene Medications Administered Current Inpatient Medications Acetaminophen (Acetaminophen 325 Mg Tab) 650 mg PO Q4H PRN PRN Reason: pain/fever Stop: 03/06/20 00:38 Last Admin: 02/05/20 10:39 Dose: 650 mg Documented by: Albuterol (Albut/Ipratrop 3mg/0.5mg Neb 3 Ml Vial) 3 ml INH QID PRN PRN Reason: sob/wheezing Stop: 03/06/20 01:37 Albuterol (Albuterol Hfa 8 Gm Inhaler (Combivent Respimat P&T Subs)) 1 puffs INH QID PRN PRN Reason: Shortness Of Breath Stop: 03/06/20 01:43 Alprazolam (Alprazolam 0.25 Mg Tablet) 0.25 mg PO DAILY PRN PRN Reason: sleep Stop: 03/06/20 00:38 Aspirin (Aspirin 81 Mg Ectab) 81 mg PO Q2D [facility] Stop: 03/06/20 00:38 Last Admin: 02/05/20 01:56 Dose: 81 mg Documented by: Atorvastatin Calcium (Atorvastatin 40 Mg Tab) 40 mg PO QAM [facility] Stop: 03/06/20 08:59 Last Admin: 02/05/20 09:54 Dose: 40 mg Documented by: Azithromycin (Azithromycin 250 Mg Tab) 250 mg PO MOWEFR [facility] Stop: 03/06/20 08:59 Last Admin: 02/05/20 09:54 Dose: 250 mg Documented by: Enoxaparin Sodium (Enoxaparin Inj 30 Mg/0.3 Ml Syr) 30 mg SQ Q24H [facility] Stop: 03/06/20 07:59 Last Admin: 02/05/20 09:53 Dose: 30 mg Documented by: Escitalopram Oxalate (Escitalopram Oxalate 20 Mg Tab) 20 mg PO QAM [facility] Stop: 03/06/20 08:59 Last Admin: 02/05/20 09:54 Dose: 20 mg Documented by: Fluticasone Furoate (Fluticasone Furoate 100mcg 14 Puffs/Inhaler) 1 puffs INH DAILY [facility] Stop: 03/06/20 08:59 Last Admin: 02/05/20 09:54 Dose: 1 puffs Documented by: Ciprofloxacin (Cipro / D5w) 400 mg in 200 mls @ 100 mls/hr IV Q12H [facility]; Protocol Stop: 02/15/20 11:59 Last Infusion: 02/05/20 14:48 Dose: Infused Documented by: Metronidazole (Flagyl) 500 mg in 100 mls @ 100 mls/hr IV Q8H [facility] Stop: 02/15/20 10:59 Last Infusion: 02/05/20 13:42 Dose: Infused Documented by: Ipratropium [place] (Ipratropium Hfa Inhaler (Combivent Respimat P&T Subs)) 1 puffs INH QID PRN PRN Reason: sob/wheezing Stop: 03/06/20 01:43 Lisinopril (Lisinopril 2.5 Mg Tab) 2.5 mg PO QAM [facility] Stop: 03/06/20 08:59 Last Admin: 02/05/20 09:54 Dose: 2.5 mg Documented by: Morphine Sulfate (Morphine Sulfate 2 Mg/Ml Carp) 0.5 mg IV Q2H PRN PRN Reason: Pain Stop: 02/19/20 00:38 Last Admin: 02/05/20 13:07 Dose: 0.5 mg Documented by: Ondansetron HCl (Ondansetron Inj 2 Mg/Ml 2 Ml Vial) 4 mg IV Q6H PRN PRN Reason: Nausea Stop: 03/06/20 00:38 Polyethylene Glycol (Polyethylene (Miralax) 17 Gm Pack) 17 gm PO DAILY [facility] Stop: 03/06/20 11:14 Last Admin: 02/05/20 12:13 Dose: 17 gm Documented by: Simethicone (Simethicone 80 Mg Chew) 80 mg PO Q6H PRN PRN Reason: Gas or Constipation Stop: 03/06/20 11:01 Last Admin: 02/05/20 12:11 Dose: 80 mg Documented by: Sodium Biphosphate/Sodium Phosphate (Sod Phosphate/Sod Biphosphate Enema 132 Ml Btl) 132 ml ND DAILY PRN PRN Reason: Constipation Stop: 03/06/20 11:00 Last Admin: 02/05/20 15:18 Dose: 132 ml Documented by: Umeclidinium/Vilanterol (Umeclidinium/Vilanterol 62.5/25mcg 7 Puffs/Inhaler) 1 puffs INH QAM [facility] Stop: 03/06/20 08:59 Last Admin: 02/05/20 09:53 Dose: 1 puffs Documented by: PG Care Time/CCT Total # of Minutes Spent Total Time Spent: 33 Total Time Spent with Patient: Total time spent is greater than 50% in coordination of care (as documented) at patient's floor/unit and/or counseling patient: Coding Level of Care Code 59233 Subseq Hosp Care Lvl 3 Diagnoses Colitis K52.9 Elevated WBC count D72.829 Leukocytosis type: unspecified Lung nodule R91.1 Abdominal pain R10.30 Abdominal location: lower abdomen, unspecified COPD (chronic obstructive pulmonary disease) J43.9 COPD type: emphysema Emphysema type: unspecified Coronary artery disease I25.10 Associated angina: without angina Coronary Disease-Associated Artery/Lesion type: [place] artery [place] vs. transplanted heart: [place] heart Hypertension I10 Hypertension type: essential hypertension Anxiety F41.9 (1) Coronary artery disease Associated angina: without angina Coronary Disease-Associated Artery/Lesion type: [place] artery [place] vs. transplanted heart: [place] heart Qualified Code(s): I25.10 - Atherosclerotic heart disease of [place] coronary artery without angina pectoris (2) Elevated WBC count Leukocytosis type: unspecified Qualified Code(s): D72.829 - Elevated white blood cell count, unspecified (3) COPD (chronic obstructive pulmonary disease) COPD type: emphysema Emphysema type: unspecified Qualified Code(s): J43.9 - Emphysema, unspecified (4) Abdominal pain Abdominal location: lower abdomen, unspecified Qualified Code(s): R10.30 - Lower abdominal pain, unspecified (5) Hypertension Hypertension type: essential hypertension Qualified Code(s): I10 - Essential (primary) hypertension
[2020-02-06] MEDS: SIMETHICONE 80 MG CHEW PO PRN ×3 (00:15→23:37)
[2020-02-06] MEDS: metroNIDAZOLE 500 MG/100 ML BAG IV SCH ×3 (02:14→18:51)
[2020-02-06] MEDS: MoRPHine SULFATE 2 MG/ML CARP IV PRN (03:21)
--- NOTE | 2020-02-06 05:43 | Electrocardiogram Report ---
Test Reason : Blood Pressure : / mmHG Vent. Rate : 086 BPM Atrial Rate : 086 BPM P-R Int : 152 ms QRS Dur : 068 ms QT Int : 392 ms P-R-T Axes : 000 083 078 degrees QTc Int : 469 ms Unusual P axis, possible ectopic atrial rhythm Poor R wave progression, consider anterior OH vs. lead placement vs. LVH Abnormal ECG When compared with ECG of 08-JUN-2019 23:35, Ectopic atrial rhythm has replaced Sinus rhythm Confirmed by Tripp Kamara ([id number]) on 02/06/2020 5:43:31 AM Referred By: REFERRED SELF Confirmed By:Tripp Kamara
[2020-02-06] MEDS: POLYETHYLENE (MIRALAX) 17 GM PACK PO SCH ×2 (08:15→20:15)
[2020-02-06] MEDS: ENOXAPARIN INJ 30 MG/0.3 ML SYR SQ SCH (08:23)
[2020-02-06] MEDS: ACETAMINOPHEN 325 MG TAB PO PRN ×2 (08:23→18:05)
[2020-02-06] MEDS: ESCITALOPRAM OXALATE 20 MG TAB PO SCH (08:24)
[2020-02-06] MEDS: ATORVASTATIN 40 MG TAB PO SCH (08:24)
[2020-02-06] MEDS: FLUTICASONE FUROATE 100MCG 14 PUFFS/INHALER INH SCH (08:24)
[2020-02-06] MEDS: UMECLIDINIUM/VILANTEROL 62.5/25MCG 7 PUFFS/INHALER INH SCH (08:24)
[2020-02-06 08:28] LABS: Hematocrit (blood only) 32.6 % (37-47); Hemoglobin 10.9 g/dL (12.0-16.0); Mean Corpuscular Hemoglobin 30.4 pg (25-34); Mean Corpuscular Hgb Conc 33.4 g/dL (32-36); Mean Corpuscular Volume 91.1 fL (80-100); Mean Platelet Volume 8.8 fL (7.4-10.4); Platelet Count 330 K/uL (130-400); RDW Coefficient of Variation 13.7 % (11.5-14.5); RDW Standard Deviation 45.1 fL (36.4-46.3); Red Blood Count 3.58 M/uL (4.2-5.4); White Blood Count 28.96 K/uL (4.8-10.8)
[2020-02-06 08:57] LABS: Immature Granulocytes # (auto) 0.19 K/uL (0.00-0.02); Immature Granulocytes % (auto) 0.7 %; Lymphocytes # (auto) 0.65 K/uL (1.2-3.4); Lymphocytes % (auto) 2.2 %; Monocytes # (auto) 1.65 K/uL (0.11-0.59); Monocytes % (auto) 5.7 %; Neutrophils # (auto) 26.47 K/uL (1.4-6.5); Neutrophils % (auto) 91.4 %
[2020-02-06 09:04] LABS: BUN Creatinine Ratio 17.5 (10-20); Calcium 8.6 mg/dl (8.5-10.1); Creatinine Clr Calc Pharmacy 74.6 ml/min; Est GFR (African American) 118.8; Est GFR (Non-African American) 102.5; Potassium 3.7 mmol/L (3.5-5.1)
--- NOTE | 2020-02-06 10:02 | Hospitalist Progress Note ---
Date of Service February 06, 2020 Assessment & Plan (1) Colitis: Patient with abdominal pain, colitis noted on CT. Leukemoid reaction with WBC=40.91. She is afebrile, HD stable, chronically ill in appearance though not acutely toxic. based on CT, would be concerned for stercoral colitis, diverticulitis she has bowels sounds, + flatus, burping suppository on 02/04 with no BM enema on 02/04 with some liquid stool and then some small solid pieces of stool, no significant BM C diff negative, stop Vanco PO continue on Cipro/Flagyl IV, WBC down to 28k continue LR at 80cc/hr since she is NPO appreciate general surgery consultation will ask gastroenterology to evaluate, consider colon obstruction? she is NPO and will await recommendations from GI (2) Elevated WBC count: Patient with leukemoid reaction, WBC=40.9 with elevated neutrophils and bands. ?secondary to recent steroid use, infection, malignancy appreciate peripheral smear evaluation, no evidence of malignant cells predominant PMN suggesting acute infection WBC down a little further to 28k continue cipro/flagyl IV, stop Vanco PO as C diff gene negative (3) Lung nodule: Patient follows with Pulmonary for her severe O2 dependant COPD. Former smoker with 43 packyear history. She had a CT of the chest on 01/10/19 which demonstrated severe pulmonary emphysema and resolution of the previously seen subpleural opacities. Stable area of architectural distortion within the PETRA possibly secondary to scarring. CT from 10/07/18 with multiple irregular opacities and irregular 1.9cm opacity in the superior segment of the PETRA. Now with spiculated lesion in the LLL concerning for malignancy will plan for CT chest this admission but it is not urgent, want to relieve constipation/impaction first (4) Abdominal pain: Most likely secondary to colitis and constipation as above -Morphine 0.5mg IV q 2 hours as needed. Cautious use of opiates pain is the same as admission, slightly distended (5) COPD (chronic obstructive pulmonary disease): Patient with severe O2 dependant COPD. She follows with Pulmonary. States that her respiratory status has been stable -Continue supplemental O2 -Continue home inhalers, Duonebs, Combivent, Trelegy hold Azithromycin for now due to interaction with Cipro (6) Coronary artery disease: Chronic. Stable. Patient denies CP. No EKG evidence of ischemia -Continue ASA QOD -Continue Atorvastatin -Continue Lisinopril (7) Hypertension: Blood pressure stable -Continue Lisinopril -Continue to monitor (8) Anxiety: Chronic -Continue escitalopram -Alprazolam as needed for sleep F/E/N - LR at 80mL/hr until her oral intake improves Ppx - Lovenox 30 Code - DNR/DNI per discussion with patient at time of admission Admission and Anticipated Discharge Date Admission Date: February 05, 2020 Subjective patient still with abdominal distension, pain that is generalized she is burping, she is passing flatus she said she passed some liquid stool but also some hard pieces of stool, not a large volume checked labs, WBC down to 28k, Hb 10.9, K is 3.7, Cr 0.53 awaiting GI consultation this morning, she was NPO since midnight in case they recommend a sigmoidoscopy will await recommendations from GI Review of Systems Review of Systems: All systems reviewed & are unremarkable except as noted in Subjective Physical Exam Constitutional: well developed, + thin and + frail appearing; no acute distress Eyes: PERRL, conjunctivae normal, anicteric sclerae ENMT: external ear and nose normal, oropharynx normal Neck: trachea midline, no thyromegaly Respiratory: normal respiratory effort, lungs clear to auscultation Cardiovascular: RRR, no murmur, no edema Gastrointestinal (Abdomen): Inspection/Auscultation: + abdomen distended and normal bowel sounds Percussion/Palpation: + abdomen tender and + abdomen firm; no guarding, abdomen not rigid and no ascites Musculoskeletal: no cyanosis or clubbing, extremities motor strength 5/5 Skin: no rashes, warm and dry Neurologic: patellar DTR's 2+ bilat, sensation intact and PERRL, EOMI, accommodation nl, no face palsy, no dysarthria Psychiatric: A+Ox3, euthymic affect Lymphatic: no cervical or axillary lymphadenopathy Results & Data Results & Data ([facility]) Vital Signs (Past 12 Hours) Vital Signs Temp Pulse Pulse Resp BP Pulse Ox 02/06/20 07:19 36.9 C 90 16 105/66 97 02/06/20 07:11 90 02/06/20 04:08 36.6 C 103 H 18 121/76 94 02/06/20 00:26 100 H 02/05/20 23:17 36.4 C L 93 H 16 119/71 99 Laboratory Results Laboratory Results - last 24 hr 02/05/20 02/05/20 02/06/20 07:50 09:02 08:15 WBC 28.96 H RBC 3.58 L Hgb 10.9 L Hct 32.6 L MCV 91.1 MCH 30.4 MCHC 33.4 RDW Std Deviation 45.1 RDW Coeff of Luis 13.7 Plt Count 330 MPV 8.8 Immature Gran % (Auto) 0.7 Neut % (Auto) 91.4 Lymph % (Auto) 2.2 [place] % (Auto) 5.7 Eos % (Auto) 0.0 Baso % (Auto) 0.0 Neut # (Auto) 26.47 H Lymph # (Auto) 0.65 L [place] # (Auto) 1.65 H Eos # (Auto) 0.00 Baso # (Auto) 0.00 Immature Gran # (Auto) 0.19 H Peripher Smr Path Cons Sodium Potassium Chloride Carbon Dioxide Anion Gap BUN Creatinine Est Cr Clr Drug Dosing Est GFR ( Amer) Est GFR (Non-Af Amer) BUN/Creatinine Ratio Glucose Calcium Stl C. diff Tox B Gene Negative Cdiff Gene 02/06/20 08:15 WBC RBC Hgb Hct MCV MCH MCHC RDW Std Deviation RDW Coeff of Luis Plt Count MPV Immature Gran % (Auto) Neut % (Auto) Lymph % (Auto) [place] % (Auto) Eos % (Auto) Baso % (Auto) Neut # (Auto) Lymph # (Auto) [place] # (Auto) Eos # (Auto) Baso # (Auto) Immature Gran # (Auto) Peripher Smr Path Cons Sodium 132 L Potassium 3.7 Chloride 97 L Carbon Dioxide 27 Anion Gap 8.0 BUN 9 D Creatinine 0.53 L Est Cr Clr Drug Dosing 74.6 Est GFR ( Amer) 118.8 Est GFR (Non-Af Amer) 102.5 BUN/Creatinine Ratio 17.5 Glucose 117 H Calcium 8.6 Stl C. diff Tox B Gene Medications Administered Current Inpatient Medications Acetaminophen (Acetaminophen 325 Mg Tab) 650 mg PO Q4H PRN PRN Reason: pain/fever Stop: 03/06/20 00:38 Last Admin: 02/06/20 08:23 Dose: 650 mg Documented by: Albuterol (Albut/Ipratrop 3mg/0.5mg Neb 3 Ml Vial) 3 ml INH QID PRN PRN Reason: sob/wheezing Stop: 03/06/20 01:37 Albuterol (Albuterol Hfa 8 Gm Inhaler (Combivent Respimat P&T Subs)) 1 puffs INH QID PRN PRN Reason: Shortness Of Breath Stop: 03/06/20 01:43 Alprazolam (Alprazolam 0.25 Mg Tablet) 0.25 mg PO DAILY PRN PRN Reason: sleep Stop: 03/06/20 00:38 Aspirin (Aspirin 81 Mg Ectab) 81 mg PO Q2D TRESA Stop: 03/06/20 00:38 Last Admin: 02/05/20 01:56 Dose: 81 mg Documented by: Atorvastatin Calcium (Atorvastatin 40 Mg Tab) 40 mg PO QAM [facility] Stop: 03/06/20 08:59 Last Admin: 02/06/20 08:24 Dose: 40 mg Documented by: Azithromycin (Azithromycin 250 Mg Tab) 250 mg PO MOWEFR [facility] Stop: 03/06/20 08:59 Last Admin: 02/05/20 09:54 Dose: 250 mg Documented by: Enoxaparin Sodium (Enoxaparin Inj 30 Mg/0.3 Ml Syr) 30 mg SQ Q24H [facility] Stop: 03/06/20 07:59 Last Admin: 02/06/20 08:23 Dose: 30 mg Documented by: Escitalopram Oxalate (Escitalopram Oxalate 20 Mg Tab) 20 mg PO QAM [facility] Stop: 03/06/20 08:59 Last Admin: 02/06/20 08:24 Dose: 20 mg Documented by: Fluticasone Furoate (Fluticasone Furoate 100mcg 14 Puffs/Inhaler) 1 puffs INH DAILY [facility] Stop: 03/06/20 08:59 Last Admin: 02/06/20 08:24 Dose: 1 puffs Documented by: Ciprofloxacin (Cipro / D5w) 400 mg in 200 mls @ 100 mls/hr IV Q12H [facility]; Protocol Stop: 02/15/20 11:59 Last Infusion: 02/06/20 01:27 Dose: Infused Documented by: Metronidazole (Flagyl) 500 mg in 100 mls @ 100 mls/hr IV Q8H [facility] Stop: 02/15/20 10:59 Last Infusion: 02/06/20 03:23 Dose: Infused Documented by: Ipratropium [place] (Ipratropium Hfa Inhaler (Combivent Respimat P&T Subs)) 1 puffs INH QID PRN PRN Reason: sob/wheezing Stop: 03/06/20 01:43 Lisinopril (Lisinopril 2.5 Mg Tab) 2.5 mg PO QAM [facility] Stop: 03/06/20 08:59 Last Admin: 02/06/20 08:24 Dose: 2.5 mg Documented by: Morphine Sulfate (Morphine Sulfate 2 Mg/Ml Carp) 0.5 mg IV Q2H PRN PRN Reason: Pain Stop: 02/19/20 00:38 Last Admin: 02/06/20 03:21 Dose: 0.5 mg Documented by: Ondansetron HCl (Ondansetron Inj 2 Mg/Ml 2 Ml Vial) 4 mg IV Q6H PRN PRN Reason: Nausea Stop: 03/06/20 00:38 Polyethylene Glycol (Polyethylene (Miralax) 17 Gm Pack) 17 gm PO DAILY [facility] Stop: 03/06/20 11:14 Last Admin: 02/06/20 08:15 Dose: Not Given Documented by: Simethicone (Simethicone 80 Mg Chew) 80 mg PO Q6H PRN PRN Reason: Gas or Constipation Stop: 03/06/20 11:01 Last Admin: 02/06/20 08:23 Dose: 80 mg Documented by: Sodium Biphosphate/Sodium Phosphate (Sod Phosphate/Sod Biphosphate Enema 132 Ml Btl) 132 ml VT DAILY PRN PRN Reason: Constipation Stop: 03/06/20 11:00 Last Admin: 02/05/20 15:18 Dose: 132 ml Documented by: Umeclidinium/Vilanterol (Umeclidinium/Vilanterol 62.5/25mcg 7 Puffs/Inhaler) 1 puffs INH QAM [facility] Stop: 03/06/20 08:59 Last Admin: 02/06/20 08:24 Dose: 1 puffs Documented by: PG Care Time/CCT Total # of Minutes Spent Total Time Spent with Patient: Total time spent is greater than 50% in coordination of care (as documented) at patient's floor/unit and/or counseling patient: Coding Level of Care Code 35899 Subseq Hosp Care Lvl 3 Diagnoses Colitis K52.9 Elevated WBC count D72.829 Leukocytosis type: unspecified Lung nodule R91.1 Abdominal pain R10.30 Abdominal location: lower abdomen, unspecified COPD (chronic obstructive pulmonary disease) J43.9 COPD type: emphysema Emphysema type: unspecified Coronary artery disease I25.10 Coronary Disease-Associated Artery/Lesion type: [place] artery [place] vs. transplanted heart: [place] heart Associated angina: without angina Hypertension I10 Hypertension type: essential hypertension Anxiety F41.9 (1) Elevated WBC count Leukocytosis type: unspecified Qualified Code(s): D72.829 - Elevated white blood cell count, unspecified (2) Abdominal pain Abdominal location: lower abdomen, unspecified Qualified Code(s): R10.30 - Lower abdominal pain, unspecified (3) COPD (chronic obstructive pulmonary disease) COPD type: emphysema Emphysema type: unspecified Qualified Code(s): J43.9 - Emphysema, unspecified (4) Coronary artery disease Coronary Disease-Associated Artery/Lesion type: [place] artery [place] vs. transplanted heart: [place] heart Associated angina: without angina Qualified Code(s): I25.10 - Atherosclerotic heart disease of [place] coronary artery without angina pectoris (5) Hypertension Hypertension type: essential hypertension Qualified Code(s): I10 - Essential (primary) hypertension
--- NOTE | 2020-02-06 10:31 | Gastrointestinal Consultation ---
Date of Consultation February 06, 2020 Assessment & Plan (1) Colitis: CT with inflammation. Diff dx considered are diverticulitis, ischemic colitis, Less likely IBD or colon cancer. 1. Would cover with antibiotics for diverticulitis. 2. Gentle laxatives: Mirlax BID. 3. Will check X-ray tomorrow morning. 4. May have full liquid diet. 5. Needs eventual colonoscopy. Pt agrees to OP in 6-8 wks. (2) Abdominal pain: (3) Constipation: Supervising Physician Co-Signing Physician Notes Attending attestation I have seen, examined this patient, and agree with the findings and above by our mid-level provider SONY Boyd, with the following additions: Patient presents with the acute onset of left lower quadrant abdominal pain and CT findings of inflammation in the sigmoid colon. The differential diagnosis for this would include diverticulitis, ischemia, less likely inflammatory infectious given the lack of diarrhea. She does also has complicating constipation. No role for endoscopy especially in the setting of pain as well as inflammation on CT. Agree with antibiotics, ok with liquid diet. Will follow History of Present Illness Reason for Consultation: Colitis Requesting Physician: Gopi Attending Physician: Home Gibbs DO History of Present Illness Ms. Madi Romo is a 59 yr old female pt of [facility] with a hx of COPD, CAD/prior [place], GERD who presented to the ED on 02/04 for lower abdomen pain and worsening constipation, though also reported some BMs consisting of only mucous. She has chronically poor appetite and aprox 10 lbs weight loss in the past year and has always been a very thin person (top weight 114, now 88 obs). She has chronic constipation, passing small hard pieces every day or two, saying she doesn't remember the last time she "passed a good BM." On Wednesday, she began with severe bilateral lower abdomen pain and what sounds like tenesmus. She had some nausea on Wednesday, vomiting liquid emesis twice. Cons tipation seems worse as well. Most recent BM was small and firm 2 days ago - until she received an enema here which affected a few small BMs. She has not had blood in her BMs or emesis. CT on arrival with colon wall thickening and a large fecal load. X-ray yesterday with mild gaseous distention and a large amt of stool. Her abdomen feels "a little better today than yesterday." She is passing some gas today. No nausea/vomiting since 2 days ago. Allergies Allergy/AdvReac Type Severity Reaction Status Date / Time Bactrim Allergy Severe THROAT AND Verified 02/14/17 00:52 EARS SWELL bupropion [From Wellbutrin] Allergy Severe Verified 02/04/20 21:12 sulfamethoxazole Allergy Severe THROAT AND Verified 02/04/20 21:12 EARS SWELL trimethoprim Allergy Severe THROAT AND Verified 02/04/20 21:12 EARS SWELL codeine AdvReac Intermediate STOMACH Verified 02/04/20 21:12 CRAMPS, "KNOCKS ME OUT FOR DAYS" Home Medications Home Medications Medication Instructions Recorded Confirmed Type alprazolam 0.25 mg tablet 0.25 mg PO DAILY PRN 03/14/19 02/04/20 History atorvastatin 40 mg tablet 40 mg PO QAM 03/14/19 02/04/20 History lisinopril 2.5 mg tablet 2.5 mg PO QAM 03/14/19 02/04/20 History aspirin 81 mg tablet,delayed 81 mg PO Q2D 04/25/19 02/04/20 History release levofloxacin 750 mg tablet 750 mg PO DAILY 7 Days #7 tab 01/22/20 02/04/20 Rx azithromycin 250 mg PO MOWEFR 02/04/20 02/04/20 History escitalopram oxalate 20 mg PO QAM 02/04/20 02/04/20 History [id number] 1 inh INHALATION QAM 02/04/20 02/04/20 History [Trelegy Ellipta] ipratropium-albuterol 3 ml INHALATION QID PRN 02/05/20 02/05/20 History ipratropium-albuterol [Combivent 1 puff INHALATION QID PRN 02/05/20 02/05/20 History Respimat] Patient History Medical History Acid reflux Bronchitis COPD (chronic obstructive pulmonary disease) Coronary artery disease Emphysema of lung Heart disease Hypertension Myocardial infarct Pneumonia Surgical History History of appendectomy History of hysterectomy History of tonsillectomy Stented coronary artery Social History Smoking Status: Former smoker Cigarettes Per Day: 20; Second Hand Exposure: Yes; Hx Alcohol Use: No Hx Substance Use: No Preferred Language: Mauritanian Beliefs That Will Affect Care: None Current Living Situation: Spouse Current Living Situation Comment: Feels Safe at Home: Yes Assistive Devices: None Review of Systems Review of Systems: ROS: Gen: + weight loss, poor appetites. Denies fevers loss Eyes: No eye redness, or pain, no recent vision changes Resp: + chronic SOB with COPD, but reports no recent worsening in her breathing. No cough Cardio: No palpitations/irregular beats, no chest pain GI: See HPI, otherwise (-). : Denies pain on urination Skin: No jaundice, itching or new rashes Physical Exam Constitutional: WD/WN, vitals as above + ill appearing and + thin frail Eyes: PERRL, conjunctivae normal, anicteric sclerae ENMT: external ear and nose normal, oropharynx normal Neck: trachea midline, no thyromegaly Respiratory: normal respiratory effort Auscultation: + diminished lung sounds (at bases); no crackles, no rales and no wheezes Cardiovascular: RRR, no murmur, no edema Gastrointestinal (Abdomen): Inspection/Auscultation: + abdomen distended (but not taunt); no abdominal edema Percussion/Palpation: + abdomen tender (bilat lower abd, moderately to marked diffuse tenderness); no ascites Rectal Exam: + hemorrhoids (one small) and + stool abnormal (small hard pieces in the rectal vault but no impaction); no fecal impaction and no rectal tenderness Musculoskeletal: Extremities: + clubbing Skin: no rashes, warm and dry + turgor decreased Neurologic: PERRL, EOMI, accommodation nl, no face palsy, no dysarthria Psychiatric: A+Ox3, euthymic affect Speech: normal rate/rhythm/volume of speech Lymphatic: no cervical or axillary lymphadenopathy Results & Data ([facility]) Vital Signs (Past 12 Hours) Vital Signs Temp Pulse Pulse Resp BP Pulse Ox 02/06/20 07:19 36.9 C 90 16 105/66 97 02/06/20 07:11 90 02/06/20 04:08 36.6 C 103 H 18 121/76 94 02/06/20 00:26 100 H 02/05/20 23:17 36.4 C L 93 H 16 119/71 99 Laboratory Results WBC 33, Hb 11, Hct 35, Platelets 392, Na 132, K 4.0, BUN 26, Cr 0.78. Diagnostic Findings Non contrast Ct abd/pelvis on 02/03: 1. Inflammatory change in the deep pelvis surrounding the mid to distal sigmoid colon which demonstrates mild wall thickening. This favors a nonspecific colitis and could represent a stercoral colitis given the moderate amount of stool within the colon. An acute diverticulitis could also have a similar appearance. No perforation or abscess. 2. Focal irregular density within the left lung base. Dominant irregular density measures 2.4 x 1.5 cm. This could represent pneumonia or a pulmonary mass. 3 month follow-up chest CT and pulmonary consultation recommended for further evaluation. 3. Emphysema. Medications Administered Cipro/Flagul (1) Abdominal pain Abdominal location: lower abdomen, unspecified Qualified Code(s): R10.30 - Lower abdominal pain, unspecified
[2020-02-06] MEDS: LACTATED RINGER'S 1,000 ML IV SCH ×2 (10:41→23:06)
[2020-02-06] MEDS: CIPROFLOXACIN / D5W 400 MG/200 ML BAG IV SCH ×2 (11:59→23:37)
--- NOTE | 2020-02-06 13:48 | Surgery Progress Note ---
Date of Service pt feels better, less abdominal pain, passed BM, no nausea, no vomiting, no fever, February 06, 2020 Assessment & Plan (1) Abdominal pain: (2) Colitis: pt is a 59 year-old female who was admitted to hospital for lower abdominal pain, IMP: colitis, Plan, no emergent surgery indication now, recommend consult GI for sigmoidoscopy to R/O colon obstruction, and co-manage colitis, continue treatment for colitis with IV antibiotic, repeat labs in am, will F/U, pt agrees with the plan, I answered all questions, 02/06/2020 1:47PM doing better, WBC down to 23,000 continue IV antibiotic, will F/U Admission and Anticipated Discharge Date Admission Date: February 04, 2020 Subjective patient still with abdominal distension, pain that is generalized she is burping, she is passing flatus she said she passed some liquid stool but also some hard pieces of stool, not a large volume checked labs, WBC down to 28k, Hb 10.9, K is 3.7, Cr 0.53 awaiting GI consultation this morning, she was NPO since midnight in case they recommend a sigmoidoscopy will await recommendations from GI Review of Systems Constitutional: as per Subjective / HPI Eyes: as per Subjective / HPI Ear, Nose, Mouth, Throat: as per Subjective / HPI Respiratory: as per Subjective / HPI COPD, lung nodule, emphysema Cardiovascular: as per Subjective / HPI Additional Comments: CAD, HTN, [place] Gastrointestinal: as per Subjective / HPI Genitourinary: as per Subjective / HPI Musculoskeletal: as per Subjective / HPI Integumentary: as per Subjective / HPI Neurologic: as per Subjective / HPI Psychiatric: as per Subjective / HPI anxity Endocrine: as per Subjective / HPI Hematologic / Lymphatic: as per Subjective / HPI Physical Exam Constitutional: WD/WN, vitals as above + ill appearing Eyes: PERRL, conjunctivae normal, anicteric sclerae ENMT: external ear and nose normal, oropharynx normal Neck: trachea midline, no thyromegaly Respiratory: normal respiratory effort, lungs clear to auscultation Cardiovascular: RRR, no murmur, no edema Rate/Rhythm: regular rate and regular rhythm Heart Sounds: normal S1 and normal S2 Gastrointestinal (Abdomen): Percussion/Palpation: abdomen soft mild tenderness at lower abdomen, no rebound pain, BS + Musculoskeletal: no cyanosis or clubbing, extremities motor strength 5/5 Skin: no rashes, warm and dry Neurologic: patellar DTR's 2+ bilat, sensation intact Psychiatric: Orientation: alert and oriented x 3 Results & Data ([facility]) Vital Signs (Past 12 Hours) Vital Signs Temp Pulse Pulse Resp BP Pulse Ox 02/06/20 11:02 37 C 83 16 95/60 L 99 02/06/20 07:19 36.9 C 90 16 105/66 97 02/06/20 07:11 90 02/06/20 04:08 36.6 C 103 H 18 121/76 94 Laboratory Results Abnormal lab results 02/06/20 02/06/20 Range/Units 08:15 08:15 WBC 28.96 H (4.8-10.8) K/uL RBC 3.58 L (4.2-5.4) M/uL Hgb 10.9 L (12.0-16.0) g/dL Hct 32.6 L (37-47) % Neut # (Auto) 26.47 H (1.4-6.5) K/uL Lymph # (Auto) 0.65 L (1.2-3.4) K/uL [place] # (Auto) 1.65 H (0.11-0.59) K/uL Immature Gran # (Auto) 0.19 H (0.00-0.02) K/uL Sodium 132 L (136-145) mmol/L Chloride 97 L (98-107) mmol/L Creatinine 0.53 L (0.6-1.2) mg/dl Glucose 117 H (70-99) mg/dl (1) Abdominal pain Abdominal location: lower abdomen, unspecified Qualified Code(s): R10.30 - Lower abdominal pain, unspecified
[2020-02-06] MEDS: ASPIRIN 81 MG ECTAB PO SCH (23:37)
[2020-02-07] MEDS: metroNIDAZOLE 500 MG/100 ML BAG IV SCH ×3 (04:05→20:17)
[2020-02-07 06:41] LABS: Basophils # (auto) 0.01 K/uL (0-0.2); Basophils % (auto) 0.1 %; Eosinophils # (auto) 0.01 K/uL (0-0.5); Eosinophils % (auto) 0.1 %; Hematocrit (blood only) 28.1 % (37-47); Hemoglobin 9.3 g/dL (12.0-16.0); Immature Granulocytes # (auto) 0.05 K/uL (0.00-0.02); Immature Granulocytes % (auto) 0.3 %; Lymphocytes # (auto) 0.54 K/uL (1.2-3.4); Lymphocytes % (auto) 2.7 %; Mean Corpuscular Hemoglobin 30.3 pg (25-34); Mean Corpuscular Hgb Conc 33.1 g/dL (32-36); Mean Corpuscular Volume 91.5 fL (80-100); Monocytes # (auto) 1.03 K/uL (0.11-0.59); Monocytes % (auto) 5.2 %; Neutrophils # (auto) 18.03 K/uL (1.4-6.5); Neutrophils % (auto) 91.6 %; Platelet Count 303 K/uL (130-400); RDW Coefficient of Variation 13.8 % (11.5-14.5); RDW Standard Deviation 45.5 fL (36.4-46.3); Red Blood Count 3.07 M/uL (4.2-5.4); White Blood Count 19.67 K/uL (4.8-10.8)
[2020-02-07 07:15] LABS: BUN Creatinine Ratio 8.8 (10-20); Calcium 8.1 mg/dl (8.5-10.1); Creatinine Clr Calc Pharmacy 62.7 ml/min; Est GFR (African American) 111.6; Est GFR (Non-African American) 96.3; Potassium 2.9 mmol/L (3.5-5.1)
[2020-02-07] MEDS ORDERED: POTASSIUM CHLORIDE / WTR 10 MEQ/100 ML PLCT IV STA (08:19)
[2020-02-07] MEDS: SIMETHICONE 80 MG CHEW PO PRN (08:52)
[2020-02-07] MEDS: ESCITALOPRAM OXALATE 20 MG TAB PO SCH (08:53)
[2020-02-07] MEDS: ATORVASTATIN 40 MG TAB PO SCH (08:53)
[2020-02-07] MEDS: UMECLIDINIUM/VILANTEROL 62.5/25MCG 7 PUFFS/INHALER INH SCH (08:53)
[2020-02-07] MEDS: FLUTICASONE FUROATE 100MCG 14 PUFFS/INHALER INH SCH (08:54)
[2020-02-07] MEDS: ENOXAPARIN INJ 30 MG/0.3 ML SYR SQ SCH (08:54)
[2020-02-07] MEDS: POTASSIUM CHLORIDE / WTR 10 MEQ/100 ML PLCT IV SCH ×2 (08:56→09:59)
[2020-02-07] MEDS: POTASSIUM CHLORIDE 20 MEQ TABCR PO SCH ×3 (09:01→20:18)
[2020-02-07] MEDS: POLYETHYLENE (MIRALAX) 17 GM PACK PO SCH (09:02)
--- NOTE | 2020-02-07 09:04 | XRay Report ---
KUB HISTORY: Abdominal distention. Generalized abdominal pain. COMPARISON: [facility]UB 02/05/2020. FINDINGS: Moderate amount of stool within the distal colon/rectum. This has slightly improved. Multip le mildly dilated gas-filled loops of large and small bowel are again noted throughout the abdomen. T his is stable to slightly improved compared to prior study. No renal calculi. No ureteral calculi. N o pneumoperitoneum or pneumatosis. Left lower lobe pulmonary nodule is again suggested. IMPRESSION: Stable to slight improvement within the mildly dilated gas-filled loops of large or small bowel as we ll as the moderate stool within the distal colon/rectum. ACT 112: Negative or not required by law. Electronically signed by: John Griffith M.D. 02/07/2020 9:03 AM
--- NOTE | 2020-02-07 09:17 | Surgery Progress Note ---
Date of Service doing better, less lower abdominal pain, pain, WBC down to 18,000. KUB- IMPRESSION: Stable to slight improvement within the mildly dilated gas-filled loops of large or small bowel as well as the moderate stool within the distal colon/rectum. February 07, 2020 Assessment & Plan (1) Abdominal pain: (2) Colitis: pt is a 59 year-old female who was admitted to hospital for lower abdominal pain, IMP: colitis, Plan, no emergent surgery indication now, recommend consult GI for sigmoidoscopy to R/O colon obstruction, and co-manage colitis, continue treatment for colitis with IV antibiotic, repeat labs in am, will F/U, pt agrees with the plan, I answered all questions, 02/06/2020 1:47PM doing better, WBC down to 23,000 continue IV antibiotic, will F/U 02/07/2020 9:17AM doing better, WBC down to 18,000 continue IV antibiotic will F/U Admission and Anticipated Discharge Date Admission Date: February 04, 2020 Supervising Physician Co-Signing Physician Notes Attending attestation I have seen, examined this patient, and agree with the findings and above by our mid-level provider SONY Boyd, with the following additions: Patient presents with the acute onset of left lower quadrant abdominal pain and CT findings of inflammation in the sigmoid colon. The differential diagnosis for this would include diverticulitis, ischemia, less likely inflammatory infectious given the lack of diarrhea. She does also has complicating constipation. No role for endoscopy especially in the setting of pain as well as inflammation on CT. Agree with antibiotics, ok with liquid diet. Will follow Subjective patient still with abdominal distension, pain that is generalized she is burping, she is passing flatus she said she passed some liquid stool but also some hard pieces of stool, not a large volume checked labs, WBC down to 28k, Hb 10.9, K is 3.7, Cr 0.53 awaiting GI consultation this morning, she was NPO since midnight in case they recommend a sigmoidoscopy will await recommendations from GI Review of Systems Constitutional: as per Subjective / HPI Eyes: as per Subjective / HPI Ear, Nose, Mouth, Throat: as per Subjective / HPI Respiratory: as per Subjective / HPI COPD, lung nodule, emphysema Cardiovascular: as per Subjective / HPI Additional Comments: CAD, HTN, VA Gastrointestinal: as per Subjective / HPI Genitourinary: as per Subjective / HPI Musculoskeletal: as per Subjective / HPI Integumentary: as per Subjective / HPI Neurologic: as per Subjective / HPI Psychiatric: as per Subjective / HPI anxity Endocrine: as per Subjective / HPI Hematologic / Lymphatic: as per Subjective / HPI Physical Exam Constitutional: WD/WN, vitals as above + ill appearing Eyes: PERRL, conjunctivae normal, anicteric sclerae ENMT: external ear and nose normal, oropharynx normal Neck: trachea midline, no thyromegaly Respiratory: normal respiratory effort, lungs clear to auscultation Cardiovascular: RRR, no murmur, no edema Rate/Rhythm: regular rate and regular rhythm Heart Sounds: normal S1 and normal S2 Gastrointestinal (Abdomen): Percussion/Palpation: abdomen soft mild tenderness lower abdomen, no rebound pain, BS + Musculoskeletal: no cyanosis or clubbing, extremities motor strength 5/5 Skin: no rashes, warm and dry Neurologic: patellar DTR's 2+ bilat, sensation intact Psychiatric: Orientation: alert and oriented x 3 Results & Data ([facility]) Vital Signs (Past 12 Hours) Vital Signs Temp Pulse Pulse Resp BP BP Pulse Ox 02/07/20 07:09 37.3 C 86 22 112/66 100 02/07/20 03:15 37.0 C 96 H 22 117/73 92 02/06/20 23:18 96 H 02/06/20 22:49 37.0 C 102 H 18 113/61 90 Laboratory Results Abnormal lab results 02/07/20 02/07/20 Range/Units 06:10 06:10 WBC 19.67 H (4.8-10.8) K/uL RBC 3.07 L (4.2-5.4) M/uL Hgb 9.3 L (12.0-16.0) g/dL Hct 28.1 L (37-47) % Neut # (Auto) 18.03 H (1.4-6.5) K/uL Lymph # (Auto) 0.54 L (1.2-3.4) K/uL [place] # (Auto) 1.03 H (0.11-0.59) K/uL Immature Gran # (Auto) 0.05 H (0.00-0.02) K/uL Sodium 133 L (136-145) mmol/L Potassium 2.9 L D (3.5-5.1) mmol/L BUN 6 L (7-18) mg/dl BUN/Creatinine Ratio 8.8 L (10-20) Glucose 144 H (70-99) mg/dl Calcium 8.1 L (8.5-10.1) mg/dl (1) Abdominal pain Abdominal location: lower abdomen, unspecified Qualified Code(s): R10.30 - Lower abdominal pain, unspecified
[2020-02-07] MEDS ORDERED: bisacodyL 10 MG SUPP PR STA (09:19)
--- NOTE | 2020-02-07 11:00 | Gastroenterology Progress Note ---
Date of Service February 07, 2020 Assessment & Plan (1) Colitis: CT with inflammation. Diff dx considered are diverticulitis, ischemic colitis, Less likely IBD, infectious or colon cancer. 1. Continue antibiotics, BID Miralax and full liquid diet. 2. Appreciate primary services management of electrolyte derangements. Please try to maintain K >4 as improved GI motility. 3. Needs eventual colonoscopy. Pt agrees to OP in 6-8 wks. (2) Abdominal pain: (3) Constipation: Admission and Anticipated Discharge Date Admission Date: February 04, 2020 Supervising Physician Co-Signing Physician Notes Attending attestation I have seen, examined this patient, and agree with the findings and above by our mid-level provider SONY Boyd, with the following additions: Abdomen is less tender today, has had multiple bowel movements with the miralax. Still no appetite Would hold pm dose of Miralax continue Cipro/Flagyl Colonoscopy in 4-6 wks Subjective 59 yr old female admitted on 02/03 with hx of COPD, CAD presented with abd pain, CT with diffuse, non specific colitis, leukocytosis and constipation. Passed 2 moderate soft brown BMs today. When asked about pain says, "a little better." WBC 33->28->19. Still distended but less tender on exam today. KUB with slight improvement. Drinking full liquids with a little nausea, no vomiting. Review of Systems Review of Systems: ROS: Gen: + weight loss, poor appetites. Denies fevers loss Eyes: No eye redness, or pain, no recent vision changes Resp: + chronic SOB with COPD, but reports no recent worsening in her breathing. No cough Cardio: No palpitations/irregular beats, no chest pain GI: See HPI, otherwise (-). : Denies pain on urination Skin: No jaundice, itching or new rashes Physical Exam Constitutional: WD/WN, vitals as above + ill appearing and + thin Eyes: PERRL, conjunctivae normal, anicteric sclerae ENMT: external ear and nose normal, oropharynx normal Neck: trachea midline, no thyromegaly Respiratory: normal respiratory effort Auscultation: + diminished lung sounds (at bases); no crackles, no rales and no wheezes Cardiovascular: RRR, no murmur, no edema Gastrointestinal (Abdomen): Inspection/Auscultation: + abdomen distended (but improved compare to yesterday) and normal bowel sounds; no abdominal edema Percussion/Palpation: + abdomen tender (bilat lower abd, moderately tenderness, improved compared to yesterday); no ascites Rectal Exam: + hemorrhoids (one small) and + stool abnormal (small hard pieces in the rectal vault but no impaction); no fecal impaction and no rectal tenderness Musculoskeletal: Extremities: + clubbing Skin: no rashes, warm and dry + turgor decreased Neurologic: PERRL, EOMI, accommodation nl, no face palsy, no dysarthria Psychiatric: A+Ox3, euthymic affect Speech: normal rate/rhythm/volume of speech Lymphatic: no cervical or axillary lymphadenopathy Results & Data ([facility]) Vital Signs (Past 12 Hours) Vital Signs Temp Pulse Pulse Resp BP Pulse Ox 02/07/20 07:09 37.3 C 86 22 112/66 100 02/07/20 03:15 37.0 C 96 H 22 117/73 92 02/06/20 23:18 96 H Laboratory Results WBC 19, Hb 9, Hct 28, plt 303, Na 132, K 2.9, BUN 6, Cr 0.6 Diagnostic Findings KUB 02/07/20: Stable to slight improvement within the mildly dilated gas-filled loops of large or small bowel as well as the moderate stool within the distal colon/rectum. (1) Abdominal pain Abdominal location: lower abdomen, unspecified Qualified Code(s): R10.30 - Lower abdominal pain, unspecified
[2020-02-07] MEDS: LACTATED RINGER'S 1,000 ML IV SCH (11:32)
[2020-02-07] MEDS: CIPROFLOXACIN / D5W 400 MG/200 ML BAG IV SCH ×2 (12:23→23:50)
--- NOTE | 2020-02-07 13:11 | Hospitalist Progress Note ---
Date of Service February 07, 2020 Assessment & Plan (1) Colitis: Patient with abdominal pain, colitis noted on CT. Leukemoid reaction with WBC=40.91. She is afebrile, HD stable, chronically ill in appearance though not acutely toxic. based on CT, would be concerned for stercoral colitis, diverticulitis she has bowels sounds, + flatus, burping suppository on 02/04 with no BM enema on 02/04 with some liquid stool and then some small solid pieces of stool, no significant BM large BM over night and now with liquid stools on 02/06 stop Miralax BID C diff negative, stop Vanco PO continue on Cipro/Flagyl IV, WBC down to 19k stop LR as she is tolerating full liquid diet appreciate general surgery consultation appreciate GI recommendations (2) Elevated WBC count: Patient with leukemoid reaction, WBC=40.9 with elevated neutrophils and bands. ?secondary to recent steroid use, infection, malignancy appreciate peripheral smear evaluation, no evidence of malignant cells predominant PMN suggesting acute infection WBC down a little further to 19k continue cipro/flagyl IV, stop Vanco PO as C diff gene negative (3) Lung nodule: Patient follows with Pulmonary for her severe O2 dependant COPD. Former smoker with 43 packyear history. She had a CT of the chest on 01/10/19 which demonstrated severe pulmonary emphysema and resolution of the previously seen subpleural opacities. Stable area of architectural distortion within the PETRA possibly secondary to scarring. CT from 10/07/18 with multiple irregular opacities and irregular 1.9cm opacity in the superior segment of the PETRA. Now with spiculated lesion in the LLL concerning for malignancy will plan for CT chest this admission but it is not urgent, want to relieve constipation/impaction first plan for CT chest tomorrow (4) Abdominal pain: Most likely secondary to colitis and constipation as above -Morphine 0.5mg IV q 2 hours as needed. Cautious use of opiates pain is the same as admission, slightly distended (5) COPD (chronic obstructive pulmonary disease): Patient with severe O2 dependant COPD. She follows with Pulmonary. States that her respiratory status has been stable -Continue supplemental O2 -Continue home inhalers, Duonebs, Combivent, Trelegy hold Azithromycin for now due to interaction with Cipro (6) Coronary artery disease: Chronic. Stable. Patient denies CP. No EKG evidence of ischemia -Continue ASA QOD -Continue Atorvastatin -Continue Lisinopril (7) Hypertension: Blood pressure stable -Continue Lisinopril -Continue to monitor (8) Anxiety: Chronic -Continue escitalopram -Alprazolam as needed for sleep F/E/N - LR at 80mL/hr until her oral intake improves Ppx - Lovenox 30 Code - DNR/DNI per discussion with patient at time of admission (9) Hypokalemia: replace with PO TID repeat tomorrow Admission and Anticipated Discharge Date Admission Date: February 04, 2020 Subjective patient had a BM last night then a large BM this morning and now some loose stools her abdomen is feeling better, still a little tender no nausea/vomiting tolerating full liquids will hold off on further Miralax reviewed labs, WBC down to 19k, Hb 9.3, K low at 2.9, Cr 0.6 Review of Systems Review of Systems: All systems reviewed & are unremarkable except as noted in Subjective Respiratory: no cough and no dyspnea Cardiovascular: no chest pain and no edema Gastrointestinal: + abdominal pain and + diarrhea/loose stools; no nausea, no vomiting and no constipation Physical Exam Constitutional: well developed, + thin and + frail appearing; no acute distress Eyes: PERRL, conjunctivae normal, anicteric sclerae ENMT: external ear and nose normal, oropharynx normal Neck: trachea midline, no thyromegaly Respiratory: normal respiratory effort, lungs clear to auscultation Cardiovascular: RRR, no murmur, no edema Gastrointestinal (Abdomen): Inspection/Auscultation: + abdomen distended and normal bowel sounds Percussion/Palpation: + abdomen tender and + abdomen firm; no guarding, abdomen not rigid and no ascites Musculoskeletal: no cyanosis or clubbing, extremities motor strength 5/5 Skin: no rashes, warm and dry Neurologic: patellar DTR's 2+ bilat, sensation intact and PERRL, EOMI, accommodation nl, no face palsy, no dysarthria Psychiatric: A+Ox3, euthymic affect Lymphatic: no cervical or axillary lymphadenopathy Results & Data Results & Data ([facility]) Vital Signs (Past 12 Hours) Vital Signs Temp Pulse Pulse Resp BP Pulse Ox 02/07/20 11:49 37.1 C 94 H 16 110/44 L 98 02/07/20 08:00 86 02/07/20 07:09 37.3 C 86 22 112/66 100 02/07/20 03:15 37.0 C 96 H 22 117/73 92 Laboratory Results Laboratory Results - last 24 hr 02/07/20 02/07/20 06:10 06:10 WBC 19.67 H RBC 3.07 L Hgb 9.3 L Hct 28.1 L MCV 91.5 MCH 30.3 MCHC 33.1 RDW Std Deviation 45.5 RDW Coeff of Luis 13.8 Plt Count 303 MPV 9.0 Immature Gran % (Auto) 0.3 Neut % (Auto) 91.6 Lymph % (Auto) 2.7 [place] % (Auto) 5.2 Eos % (Auto) 0.1 Baso % (Auto) 0.1 Neut # (Auto) 18.03 H Lymph # (Auto) 0.54 L [place] # (Auto) 1.03 H Eos # (Auto) 0.01 Baso # (Auto) 0.01 Immature Gran # (Auto) 0.05 H Sodium 133 L Potassium 2.9 L D Chloride 99 Carbon Dioxide 28 Anion Gap 6.0 BUN 6 L Creatinine 0.64 Est Cr Clr Drug Dosing 62.7 Est GFR ( Amer) 111.6 Est GFR (Non-Af Amer) 96.3 BUN/Creatinine Ratio 8.8 L Glucose 144 H Calcium 8.1 L Medications Administered Current Inpatient Medications Acetaminophen (Acetaminophen 325 Mg Tab) 650 mg PO Q4H PRN PRN Reason: pain/fever Stop: 03/06/20 00:38 Last Admin: 02/06/20 18:05 Dose: 650 mg Documented by: Albuterol (Albut/Ipratrop 3mg/0.5mg Neb 3 Ml Vial) 3 ml INH QID PRN PRN Reason: sob/wheezing Stop: 03/06/20 01:37 Albuterol (Albuterol Hfa 8 Gm Inhaler (Combivent Respimat P&T Subs)) 1 puffs INH QID PRN PRN Reason: Shortness Of Breath Stop: 03/06/20 01:43 Alprazolam (Alprazolam 0.25 Mg Tablet) 0.25 mg PO DAILY PRN PRN Reason: sleep Stop: 03/06/20 00:38 Aspirin (Aspirin 81 Mg Ectab) 81 mg PO Q2D [facility] Stop: 03/06/20 00:38 Last Admin: 02/06/20 23:37 Dose: 81 mg Documented by: Atorvastatin Calcium (Atorvastatin 40 Mg Tab) 40 mg PO QAM [facility] Stop: 03/06/20 08:59 Last Admin: 02/07/20 08:53 Dose: 40 mg Documented by: Azithromycin (Azithromycin 250 Mg Tab) 250 mg PO MOWEFR [facility] Stop: 03/06/20 08:59 Last Admin: 02/05/20 09:54 Dose: 250 mg Documented by: Enoxaparin Sodium (Enoxaparin Inj 30 Mg/0.3 Ml Syr) 30 mg SQ Q24H [facility] Stop: 03/06/20 07:59 Last Admin: 02/07/20 08:54 Dose: 30 mg Documented by: Escitalopram Oxalate (Escitalopram Oxalate 20 Mg Tab) 20 mg PO QAM [facility] Stop: 03/06/20 08:59 Last Admin: 02/07/20 08:53 Dose: 20 mg Documented by: Fluticasone Furoate (Fluticasone Furoate 100mcg 14 Puffs/Inhaler) 1 puffs INH DAILY [facility] Stop: 03/06/20 08:59 Last Admin: 02/07/20 08:54 Dose: 1 puffs Documented by: Ciprofloxacin (Cipro / D5w) 400 mg in 200 mls @ 100 mls/hr IV Q12H [facility]; Protocol Stop: 02/15/20 11:59 Last Infusion: 02/07/20 14:29 Dose: Infused Documented by: Metronidazole (Flagyl) 500 mg in 100 mls @ 100 mls/hr IV Q8H [facility] Stop: 02/15/20 10:59 Last Infusion: 02/07/20 12:29 Dose: Infused Documented by: Lactated Ringer's (Lr) 1,000 mls @ 80 mls/hr IV .[id number] [facility] Stop: 02/07/20 21:00 Last Admin: 02/07/20 11:32 Dose: 80 mls/hr Documented by: Ipratropium [place] (Ipratropium Hfa Inhaler (Combivent Respimat P&T Subs)) 1 puffs INH QID PRN PRN Reason: sob/wheezing Stop: 03/06/20 01:43 Lisinopril (Lisinopril 2.5 Mg Tab) 2.5 mg PO QAM [facility] Stop: 03/06/20 08:59 Last Admin: 02/07/20 08:53 Dose: 2.5 mg Documented by: Miscellaneous (Stop Order) 1 ea N/A TODAY@2100 ONE Stop: 02/07/20 21:01 Morphine Sulfate (Morphine Sulfate 2 Mg/Ml [place]) 0.5 mg IV Q2H PRN PRN Reason: Pain Stop: 02/19/20 00:38 Last Admin: 02/06/20 03:21 Dose: 0.5 mg Documented by: Ondansetron HCl (Ondansetron Inj 2 Mg/Ml 2 Ml Vial) 4 mg IV Q6H PRN PRN Reason: Nausea Stop: 03/06/20 00:38 Last Admin: 02/06/20 18:15 Dose: 4 mg Documented by: Potassium Chloride (Potassium Chloride 20 Meq Tabcr) 20 meq PO TID [facility] Stop: 03/08/20 08:59 Last Admin: 02/07/20 12:24 Dose: Not Given Documented by: Simethicone (Simethicone 80 Mg Chew) 80 mg PO Q6H PRN PRN Reason: Gas or Constipation Stop: 03/06/20 11:01 Last Admin: 02/07/20 08:52 Dose: 80 mg Documented by: Sodium Biphosphate/Sodium Phosphate (Sod Phosphate/Sod Biphosphate Enema 132 Ml Btl) 132 ml NM DAILY PRN PRN Reason: Constipation Stop: 03/06/20 11:00 Last Admin: 02/05/20 15:18 Dose: 132 ml Documented by: Umeclidinium/Vilanterol (Umeclidinium/Vilanterol 62.5/25mcg 7 Puffs/Inhaler) 1 puffs INH QAM [facility] Stop: 03/06/20 08:59 Last Admin: 02/07/20 08:53 Dose: 1 puffs Documented by: PG Care Time/CCT Total # of Minutes Spent Total Time Spent with Patient: Total time spent is greater than 50% in coordination of care (as documented) at patient's floor/unit and/or counseling patient: Coding Level of Care Code 86126 Subseq Hosp Care Lvl 2 Diagnoses Colitis K52.9 Elevated WBC count D72.829 Leukocytosis type: unspecified Lung nodule R91.1 Abdominal pain R10.30 Abdominal location: lower abdomen, unspecified COPD (chronic obstructive pulmonary disease) J43.9 COPD type: emphysema Emphysema type: unspecified Coronary artery disease I25.10 Associated angina: without angina Coronary Disease-Associated Artery/Lesion type: [place] artery [place] vs. transplanted heart: [place] heart Hypertension I10 Hypertension type: essential hypertension Anxiety F41.9 Hypokalemia E87.6 (1) Coronary artery disease Associated angina: without angina Coronary Disease-Associated Artery/Lesion type: [place] artery [place] vs. transplanted heart: [place] heart Qualified Code(s): I25.10 - Atherosclerotic heart disease of [place] coronary artery without angina pectoris (2) Elevated WBC count Leukocytosis type: unspecified Qualified Code(s): D72.829 - Elevated white blood cell count, unspecified (3) COPD (chronic obstructive pulmonary disease) COPD type: emphysema Emphysema type: unspecified Qualified Code(s): J43.9 - Emphysema, unspecified (4) Abdominal pain Abdominal location: lower abdomen, unspecified Qualified Code(s): R10.30 - Lower abdominal pain, unspecified (5) Hypertension Hypertension type: essential hypertension Qualified Code(s): I10 - Essential (primary) hypertension
[2020-02-07] MEDS: ACETAMINOPHEN 325 MG TAB PO PRN (23:50)
[2020-02-08] MEDS: SIMETHICONE 80 MG CHEW PO PRN ×3 (00:26→18:54)
[2020-02-08] MEDS: metroNIDAZOLE 500 MG/100 ML BAG IV SCH ×3 (02:51→18:30)
[2020-02-08] MEDS: ESCITALOPRAM OXALATE 20 MG TAB PO SCH (08:00)
[2020-02-08] MEDS: FLUTICASONE FUROATE 100MCG 14 PUFFS/INHALER INH SCH (08:00)
[2020-02-08] MEDS: UMECLIDINIUM/VILANTEROL 62.5/25MCG 7 PUFFS/INHALER INH SCH (08:00)
[2020-02-08] MEDS: ATORVASTATIN 40 MG TAB PO SCH (08:00)
[2020-02-08] MEDS: POTASSIUM CHLORIDE 20 MEQ TABCR PO SCH ×3 (08:00→18:56)
[2020-02-08] MEDS: ENOXAPARIN INJ 30 MG/0.3 ML SYR SQ SCH (08:01)
[2020-02-08 09:04] LABS: Hematocrit (blood only) 30.5 % (37-47); Mean Corpuscular Hemoglobin 30.4 pg (25-34); Mean Corpuscular Hgb Conc 32.8 g/dL (32-36); Mean Corpuscular Volume 92.7 fL (80-100); Mean Platelet Volume 9.2 fL (7.4-10.4); Platelet Count 308 K/uL (130-400); RDW Standard Deviation 47.4 fL (36.4-46.3); Red Blood Count 3.29 M/uL (4.2-5.4); White Blood Count 14.17 K/uL (4.8-10.8)
[2020-02-08 09:36] LABS: BUN Creatinine Ratio 8.4 (10-20); Calcium 8.3 mg/dl (8.5-10.1); Creatinine Clr Calc Pharmacy 74.8 ml/min; Est GFR (Non-African American) 101.8; Potassium 3.2 mmol/L (3.5-5.1)
--- NOTE | 2020-02-08 10:03 | Surgery Progress Note ---
Date of Service doing better, less abdominal pain, no fever, some diarrhea, February 08, 2020 Assessment & Plan (1) Abdominal pain: (2) Colitis: pt is a 59 year-old female who was admitted to hospital for lower abdominal pain, IMP: colitis, Plan, no emergent surgery indication now, recommend consult GI for sigmoidoscopy to R/O colon obstruction, and co-manage colitis, continue treatment for colitis with IV antibiotic, repeat labs in am, will F/U, pt agrees with the plan, I answered all questions, 02/06/2020 1:47PM doing better, WBC down to 23,000 continue IV antibiotic, will F/U 02/07/2020 9:17AM doing better, WBC down to 18,000 continue IV antibiotic will F/U 02/08/2020 10:02AM doing better, WBC 13,000 continue IV antibiotic, no surgical indication sign off today, please call with questions, thanks. Admission and Anticipated Discharge Date Admission Date: February 04, 2020 Supervising Physician Co-Signing Physician Notes Attending attestation I have seen, examined this patient, and agree with the findings and above by our mid-level provider SONY oByd, with the following additions: Abdomen is less tender today, has had multiple bowel movements with the miralax. Still no appetite Would hold pm dose of Miralax continue Cipro/Flagyl Colonoscopy in 4-6 wks Subjective patient had a BM last night then a large BM this morning and now some loose stools her abdomen is feeling better, still a little tender no nausea/vomiting tolerating full liquids will hold off on further Miralax reviewed labs, WBC down to 19k, Hb 9.3, K low at 2.9, Cr 0.6 Physical Exam Constitutional: WD/WN, vitals as above + ill appearing Eyes: PERRL, conjunctivae normal, anicteric sclerae ENMT: external ear and nose normal, oropharynx normal Neck: trachea midline, no thyromegaly Respiratory: normal respiratory effort, lungs clear to auscultation Cardiovascular: RRR, no murmur, no edema Rate/Rhythm: regular rate and regular rhythm Heart Sounds: normal S1 and normal S2 Gastrointestinal (Abdomen): normal bowel sounds, soft, nontender, no hepatosplenomegaly Percussion/Palpation: abdomen soft Musculoskeletal: no cyanosis or clubbing, extremities motor strength 5/5 Skin: no rashes, warm and dry Neurologic: patellar DTR's 2+ bilat, sensation intact Psychiatric: Orientation: alert and oriented x 3 Results & Data ([facility]) Vital Signs (Past 12 Hours) Vital Signs Temp Pulse Pulse Resp BP Pulse Ox 02/08/20 07:52 36.6 C 67 20 130/77 99 02/08/20 07:07 86 02/08/20 03:30 36.7 C 74 20 113/74 99 02/07/20 23:00 37.4 C 81 20 117/71 97 02/07/20 22:51 82 (1) Abdominal pain Abdominal location: lower abdomen, unspecified Qualified Code(s): R10.30 - Lower abdominal pain, unspecified
[2020-02-08] MEDS: ALPRAZolam 0.25 MG TABLET PO PRN (11:07)
--- NOTE | 2020-02-08 11:55 | Gastroenterology Progress Note ---
Date of Service February 08, 2020 Assessment & Plan (1) Colitis: CT with inflammation. Diff dx considered are diverticulitis, ischemic colitis, Less likely IBD, infectious or colon cancer. 1. Continue antibiotics, complete a 10 day course. Miralax daily prn. 2. Advance diet. 3. Needs eventual colonoscopy. Pt agrees to OP in 6-8 wks. 4. GI will sign off. (2) Abdominal pain: (3) Constipation: Admission and Anticipated Discharge Date Admission Date: February 04, 2020 Supervising Physician Co-Signing Physician Notes I have seen, examined this patient, and agree with the findings and above by our mid-level provider SONY Boyd, with the following additions - Looks dramatically better, WBC count improved - Pain improved - cont abx - colonoscopy in 4 wks - will sign off call with quesitons Subjective 59 yr old female admitted on 02/03 with hx of COPD, CAD presented with abd pain, CT with diffuse, non specific colitis, leukocytosis and constipation. Stools for C-diff (-) Passing loose brown BMs. Pain much improved, "feel much better." WBC improved 33->28->19-> 10. Review of Systems Review of Systems: ROS: Gen: General weakness improving, + weight loss Eyes: No eye redness, or pain, no recent vision changes Resp: No SOB, no cough Cardio: No palpitations/irregular beats, no chest pain GI: Per HPI, otherwise (-) : Denies pain on urination Skin: No jaundice, itching or new rashes Physical Exam Constitutional: WD/WN, vitals as above + ill appearing and + thin Eyes: PERRL, conjunctivae normal, anicteric sclerae ENMT: external ear and nose normal, oropharynx normal Neck: trachea midline, no thyromegaly Respiratory: normal respiratory effort, lungs clear to auscultation Auscultation: + diminished lung sounds (at bases) Cardiovascular: RRR, no murmur, no edema Gastrointestinal (Abdomen): Inspection/Auscultation: + abdomen distended (but improved compare to yesterday) and normal bowel sounds; no abdominal edema Percussion/Palpation: + abdomen tender (bilat lower abd, moderately tenderness, improved compared to yesterday); no ascites Rectal Exam: + hemorrhoids (one small) and + stool abnormal (small hard pieces in the rectal vault but no impaction); no fecal impaction and no rectal tenderness Musculoskeletal: Extremities: + clubbing Skin: no rashes, warm and dry + turgor decreased Neurologic: PERRL, EOMI, accommodation nl, no face palsy, no dysarthria Psychiatric: A+Ox3, euthymic affect Speech: normal rate/rhythm/volume of speech Lymphatic: no cervical or axillary lymphadenopathy Results & Data ([facility]) Vital Signs (Past 12 Hours) Vital Signs Temp Pulse Pulse Resp BP Pulse Ox 02/08/20 11:46 37.1 C 86 20 100/62 95 02/08/20 07:52 36.6 C 67 20 130/77 99 02/08/20 07:07 86 02/08/20 03:30 36.7 C 74 20 113/74 99 (1) Abdominal pain Abdominal location: lower abdomen, unspecified Qualified Code(s): R10.30 - Lower abdominal pain, unspecified
[2020-02-08] MEDS: CIPROFLOXACIN / D5W 400 MG/200 ML BAG IV SCH ×2 (12:18→23:43)
[2020-02-09] MEDS: ASPIRIN 81 MG ECTAB PO SCH (01:18)
[2020-02-09] MEDS: metroNIDAZOLE 500 MG/100 ML BAG IV SCH ×3 (02:56→17:58)
[2020-02-09 07:26] LABS: Creatinine Clr Calc Pharmacy 85.9 ml/min; Est GFR (African American) 123.6; Est GFR (Non-African American) 106.6
[2020-02-09] MEDS: ENOXAPARIN INJ 30 MG/0.3 ML SYR SQ SCH (09:29)
[2020-02-09] MEDS: UMECLIDINIUM/VILANTEROL 62.5/25MCG 7 PUFFS/INHALER INH SCH (09:30)
[2020-02-09] MEDS: POTASSIUM CHLORIDE 20 MEQ TABCR PO SCH ×2 (09:30→12:11)
[2020-02-09] MEDS: FLUTICASONE FUROATE 100MCG 14 PUFFS/INHALER INH SCH (09:30)
[2020-02-09] MEDS: ATORVASTATIN 40 MG TAB PO SCH (09:31)
[2020-02-09] MEDS: ESCITALOPRAM OXALATE 20 MG TAB PO SCH (09:31)
[2020-02-09] MEDS ORDERED: COUGH DROP (SUGAR FREE) LOZ 24 LOZ/1 BOX BUCCAL PRN (11:52)
[2020-02-09] MEDS: CIPROFLOXACIN / D5W 400 MG/200 ML BAG IV SCH (12:11)
--- NOTE | 2020-02-09 15:47 | Hospitalist Progress Note ---
Date of Service February 09, 2020 Assessment & Plan (1) Colitis: Patient with abdominal pain, colitis noted on CT. Leukemoid reaction with WBC=40.91. She is afebrile, HD stable, chronically ill in appearance though not acutely toxic. based on CT, would be concerned for stercoral colitis, diverticulitis she has bowels sounds, + flatus, burping suppository on 02/04 with no BM enema on 02/04 with some liquid stool and then some small solid pieces of stool, no significant BM moving her bowels since 02/06 C diff negative continue on Cipro/Flagyl IV, WBC down to 19k yesterday stop LR as she is tolerating full liquid diet appreciate general surgery consultation appreciate GI recommendations diet advanced to regular, eating better get PT/OT evaluations, likely home over the weekend if strong enough (2) Elevated WBC count: Patient with leukemoid reaction, WBC=40.9 with elevated neutrophils and bands. ?secondary to recent steroid use, infection, malignancy appreciate peripheral smear evaluation, no evidence of malignant cells predominant PMN suggesting acute infection WBC down a little further to 19k continue cipro/flagyl IV, stop Vanco PO as C diff gene negative (3) Lung nodule: Patient follows with Pulmonary for her severe O2 dependant COPD. Former smoker with 43 packyear history. She had a CT of the chest on 01/10/19 which demonstrated severe pulmonary emphysema and resolution of the previously seen subpleural opacities. Stable area of architectural distortion within the PETRA possibly secondary to scarring. CT from 10/07/18 with multiple irregular opacities and irregular 1.9cm opacity in the superior segment of the PETRA. Now with spiculated lesion in the LLL concerning for malignancy will plan for CT chest this admission but it is not urgent, want to relieve constipation/impaction first plan for CT chest on 02/09 (4) Abdominal pain: Most likely secondary to colitis and constipation as above -Morphine 0.5mg IV q 2 hours as needed. Cautious use of opiates pain is much improved after moving bowels multiple times (5) COPD (chronic obstructive pulmonary disease): Patient with severe O2 dependant COPD. She follows with Pulmonary. States that her respiratory status has been stable -Continue supplemental O2 -Continue home inhalers, Duonebs, Combivent, Trelegy hold Azithromycin for now due to interaction with Cipro (6) Coronary artery disease: Chronic. Stable. Patient denies CP. No EKG evidence of ischemia -Continue ASA QOD -Continue Atorvastatin -Continue Lisinopril (7) Hypertension: Blood pressure stable -Continue Lisinopril -Continue to monitor (8) Anxiety: Chronic -Continue escitalopram -Alprazolam as needed for sleep F/E/N - LR at 80mL/hr until her oral intake improves Ppx - Lovenox 30 Code - DNR/DNI per discussion with patient at time of admission (9) Hypokalemia: stop TID replacement, check BMP in the morning (10) Chronic respiratory failure with hypoxia: treated with nasal canula and nebulizers breathing is stable on 3L (11) Severe malnutrition: Severe malnutrition in setting of chronic illness e/b >11% loss in BW over last 6 months encourage PO intake, nutrition supplements, focus on protein intake Admission and Anticipated Discharge Date Admission Date: February 04, 2020 Subjective patient advanced to regular diet, doing okay, filling up quickly moving bowels, still on the loose side she is weak, agrees to PT/OT evaluations as she lives at home with her will get CT of the chest tomorrow to evaluate suspicious lesion on initial CT abd/pelvis certainly her significant weight loss is concerning for malignancy Cr is stable today will check CBC and BMP tomorrow patient likely to be here over the weekend Review of Systems Review of Systems: All systems reviewed & are unremarkable except as noted in Subjective Physical Exam Constitutional: well developed, + thin and + frail appearing; no acute distress Eyes: PERRL, conjunctivae normal, anicteric sclerae ENMT: external ear and nose normal, oropharynx normal Neck: trachea midline, no thyromegaly Respiratory: normal respiratory effort, lungs clear to auscultation Cardiovascular: RRR, no murmur, no edema Gastrointestinal (Abdomen): Inspection/Auscultation: + abdomen distended and normal bowel sounds Percussion/Palpation: abdomen soft; abdomen nontender, no guarding, abdomen not rigid and no ascites Musculoskeletal: no cyanosis or clubbing, extremities motor strength 5/5 Skin: no rashes, warm and dry Neurologic: patellar DTR's 2+ bilat, sensation intact and PERRL, EOMI, accommodation nl, no face palsy, no dysarthria Psychiatric: A+Ox3, euthymic affect Lymphatic: no cervical or axillary lymphadenopathy Results & Data Results & Data ([facility]) Vital Signs (Past 12 Hours) Vital Signs Temp Pulse Resp BP Pulse Ox 02/09/20 11:13 36.8 C 87 20 108/68 98 02/09/20 07:58 37.0 C 71 20 119/62 99 02/09/20 04:08 37.3 C 58 L 18 127/72 95 Laboratory Results Laboratory Results - last 24 hr 02/09/20 06:34 Creatinine 0.47 L Est Cr Clr Drug Dosing 85.9 Est GFR ( Amer) 123.6 Est GFR (Non-Af Amer) 106.6 Medications Administered Current Inpatient Medications Acetaminophen (Acetaminophen 325 Mg Tab) 650 mg PO Q4H PRN PRN Reason: pain/fever Stop: 03/06/20 00:38 Last Admin: 02/07/20 23:50 Dose: 650 mg Documented by: Albuterol (Albut/Ipratrop 3mg/0.5mg Neb 3 Ml Vial) 3 ml INH QID PRN PRN Reason: sob/wheezing Stop: 03/06/20 01:37 Albuterol (Albuterol Hfa 8 Gm Inhaler (Combivent Respimat P&T Subs)) 1 puffs INH QID PRN PRN Reason: Shortness Of Breath Stop: 03/06/20 01:43 Alprazolam (Alprazolam 0.25 Mg Tablet) 0.25 mg PO DAILY PRN PRN Reason: sleep Stop: 03/06/20 00:38 Last Admin: 02/08/20 11:07 Dose: 0.25 mg Documented by: Aspirin (Aspirin 81 Mg Ectab) 81 mg PO Q2D [facility] Stop: 03/06/20 00:38 Last Admin: 02/09/20 01:18 Dose: 81 mg Documented by: Atorvastatin Calcium (Atorvastatin 40 Mg Tab) 40 mg PO QAM [facility] Stop: 03/06/20 08:59 Last Admin: 02/09/20 09:31 Dose: 40 mg Documented by: Azithromycin (Azithromycin 250 Mg Tab) 250 mg PO MOWEFR [facility] Stop: 03/06/20 08:59 Last Admin: 02/05/20 09:54 Dose: 250 mg Documented by: Enoxaparin Sodium (Enoxaparin Inj 30 Mg/0.3 Ml Syr) 30 mg SQ Q24H [facility] Stop: 03/06/20 07:59 Last Admin: 02/09/20 09:29 Dose: 30 mg Documented by: Escitalopram Oxalate (Escitalopram Oxalate 20 Mg Tab) 20 mg PO QAM [facility] Stop: 03/06/20 08:59 Last Admin: 02/09/20 09:31 Dose: 20 mg Documented by: Fluticasone Furoate (Fluticasone Furoate 100mcg 14 Puffs/Inhaler) 1 puffs INH DAILY [facility] Stop: 03/06/20 08:59 Last Admin: 02/09/20 09:30 Dose: 1 puffs Documented by: Ciprofloxacin (Cipro / D5w) 400 mg in 200 mls @ 100 mls/hr IV Q12H [facility]; Protocol Stop: 02/15/20 11:59 Last Infusion: 02/09/20 13:57 Dose: Infused Documented by: Metronidazole (Flagyl) 500 mg in 100 mls @ 100 mls/hr IV Q8H [facility] Stop: 02/15/20 10:59 Last Infusion: 02/09/20 13:32 Dose: Infused Documented by: Ipratropium [place] (Ipratropium Hfa Inhaler (Combivent Respimat P&T Subs)) 1 puffs INH QID PRN PRN Reason: sob/wheezing Stop: 03/06/20 01:43 Lisinopril (Lisinopril 2.5 Mg Tab) [facility] [facility] [place] Stop: 03/06/20 08:59 Last Admin: 02/09/20 09:31 Dose: 2.5 mg Documented by: Menthol (Cough Drop (Sugar Free) Vladimir 24 Vladimir/1 Box) 1 vladimir BUCCAL PRN PRN PRN Reason: Sore Throat Stop: 03/10/20 11:51 Last Admin: 02/09/20 12:10 Dose: 1 vlaidmir Documented by: Morphine Sulfate (Morphine Sulfate 2 Mg/Ml [place]) 0.5 mg IV Q2H PRN PRN Reason: Pain Stop: 02/19/20 00:38 Last Admin: 02/06/20 03:21 Dose: 0.5 mg Documented by: Ondansetron HCl (Ondansetron Inj 2 Mg/Ml 2 Ml Vial) 4 mg IV Q6H PRN PRN Reason: Nausea Stop: 03/06/20 00:38 Last Admin: 02/06/20 18:15 Dose: 4 mg Documented by: Potassium Chloride (Potassium Chloride 20 Meq Tabcr) 20 meq PO TID TRESA Stop: 03/08/20 08:59 Last Admin: 02/09/20 12:11 Dose: 20 meq Documented by: Simethicone (Simethicone 80 Mg Chew) 80 mg PO Q6H PRN PRN Reason: Gas or Constipation Stop: 03/06/20 11:01 Last Admin: 02/08/20 18:54 Dose: 80 mg Documented by: Sodium Biphosphate/Sodium Phosphate (Sod Phosphate/Sod Biphosphate Enema 132 Ml Btl) 132 ml DE DAILY PRN PRN Reason: Constipation Stop: 03/06/20 11:00 Last Admin: 02/05/20 15:18 Dose: 132 ml Documented by: Umeclidinium/Vilanterol (Umeclidinium/Vilanterol 62.5/25mcg 7 Puffs/Inhaler) 1 puffs INH QAM TRESA Stop: 03/06/20 08:59 Last Admin: 02/09/20 09:30 Dose: 1 puffs Documented by: PG Care Time/CCT Total # of Minutes Spent Total Time Spent with Patient: Total time spent is greater than 50% in coordination of care (as documented) at patient's floor/unit and/or counseling patient: Coding Level of Care Code 75010 Subseq Hosp Care Lvl 3 Diagnoses Colitis K52.9 Elevated WBC count D72.829 Leukocytosis type: unspecified Lung nodule R91.1 Abdominal pain R10.30 Abdominal location: lower abdomen, unspecified COPD (chronic obstructive pulmonary disease) J43.9 COPD type: emphysema Emphysema type: unspecified Coronary artery disease I25.10 Associated angina: without angina Coronary Disease-Associated Artery/Lesion type: [place] artery [place] vs. transplanted heart: [place] heart Hypertension I10 Hypertension type: essential hypertension Anxiety F41.9 Hypokalemia E87.6 Chronic respiratory failure with hypoxia J96.11 Severe malnutrition E43 (1) Coronary artery disease Associated angina: without angina Coronary Disease-Associated Artery/Lesion type: [place] artery [place] vs. transplanted heart: [place] heart Qualified Code(s): I25.10 - Atherosclerotic heart disease of [place] coronary artery without angina pectoris (2) Elevated WBC count Leukocytosis type: unspecified Qualified Code(s): D72.829 - Elevated white blood cell count, unspecified (3) COPD (chronic obstructive pulmonary disease) COPD type: emphysema Emphysema type: unspecified Qualified Code(s): J43.9 - Emphysema, unspecified (4) Abdominal pain Abdominal location: lower abdomen, unspecified Qualified Code(s): R10.30 - Lower abdominal pain, unspecified (5) Hypertension Hypertension type: essential hypertension Qualified Code(s): I10 - Essential (primary) hypertension
[2020-02-09] MEDS: ALPRAZolam 0.25 MG TABLET PO PRN (16:14)
[2020-02-09] MEDS: SIMETHICONE 80 MG CHEW PO PRN (21:32)
[2020-02-10] MEDS: CIPROFLOXACIN / D5W 400 MG/200 ML BAG IV SCH ×2 (00:18→11:49)
[2020-02-10] MEDS: metroNIDAZOLE 500 MG/100 ML BAG IV SCH ×3 (02:21→18:00)
[2020-02-10] MEDS: FLUTICASONE FUROATE 100MCG 14 PUFFS/INHALER INH SCH (07:49)
[2020-02-10] MEDS: UMECLIDINIUM/VILANTEROL 62.5/25MCG 7 PUFFS/INHALER INH SCH (07:49)
[2020-02-10] MEDS: ESCITALOPRAM OXALATE 20 MG TAB PO SCH (07:53)
[2020-02-10] MEDS: ENOXAPARIN INJ 30 MG/0.3 ML SYR SQ SCH (07:53)
[2020-02-10] MEDS: ATORVASTATIN 40 MG TAB PO SCH (07:54)
[2020-02-10 08:43] LABS: Hematocrit (blood only) 31.8 % (37-47); Hemoglobin 10.5 g/dL (12.0-16.0); Mean Corpuscular Hemoglobin 30.3 pg (25-34); Mean Corpuscular Volume 91.6 fL (80-100); Mean Platelet Volume 8.9 fL (7.4-10.4); Platelet Count 350 K/uL (130-400); RDW Coefficient of Variation 13.9 % (11.5-14.5); RDW Standard Deviation 45.6 fL (36.4-46.3); Red Blood Count 3.47 M/uL (4.2-5.4); White Blood Count 10.28 K/uL (4.8-10.8)
[2020-02-10 09:11] LABS: BUN Creatinine Ratio 5.5 (10-20); Calcium 8.5 mg/dl (8.5-10.1); Creatinine Clr Calc Pharmacy 76.2 ml/min; Est GFR (African American) 118.8; Est GFR (Non-African American) 102.5; Potassium 3.2 mmol/L (3.5-5.1)
[2020-02-10] MEDS ORDERED: IOVERSOL 100ml IV ONE (09:22)
[2020-02-10] MEDS: POTASSIUM CHLORIDE 10 MEQ TABCR PO SCH ×2 (09:58→21:47)
--- NOTE | 2020-02-10 10:00 | CT Scan Report ---
CHEST CT WITH CONTRAST CT DOSE: 194.10 mGy.cm HISTORY: Suspicious lung lesion, significant weight loss TECHNIQUE: Multiaxial CT images of the chest were performed following the intravenous administration of contrast. A dose lowering technique was utilized adhering to the principles of ALARA. COMPARISON: Abdomen and pelvis CT 02/04/2020. Chest CT 01/10/2019. FINDINGS: There is mildly enlarged upper right paraesophageal lymph node which measures 12 x 8 mm. Th is has slightly increased in size. Additional prominent mediastinal lymph nodes remain stable. No hil ar lymphadenopathy. Limited views of the upper abdomen demonstrate normal liver, spleen, adrenal glan ds. No pericardial effusion. Trace right pleural effusion. Normal caliber thoracic aorta with no evid ence for dissection. The heart is normal in size. Coronary artery calcifications are again noted. The central pulmonary arteries are patent. Normal esophagus. No suspicious lytic are blastic osseous les ions. No pneumothorax. The central airways are patent. Advanced emphysema. Biapical pleural-parenchym al calcifications which favor scarring. Redemonstration of the irregular 2.4 x 1.3 cm focal density w ithin the left lower lobe on image 231. This is not significant changed. There are few new scattered focal irregular densities seen within the left lung. These measure 1.2 cm within the left upper lobe on image 104, 1.5 cm within the left lower lobe on image 190, and 1 cm within the lingula on image 24 0. There are few additional tiny subpleural nodular densities within the left lung. Findings favor an atypical infectious process underlying neoplasm cannot be excluded. The 6 mm irregular nodular densi ty along the left major fissure on image 101 has slightly decreased in size. IMPRESSION: 1. No significant change in the nonspecific left lower lobe 2.4 x 1.3 cm focal irregular density. 2. A few new irregular densities within the left lung as described above. These are nonspecific but f avor an infectious/inflammatory process. Underlying neoplasm would be difficult to exclude. Chest CT follow-up recommended to evaluate for stability/resolution. 3. Slight increase in size in a single enlarged upper right paraesophageal lymph node. This also bear s watching on future examinations to exclude the possibility of a neoplastic process. 4. Emphysema. ACT 112: Negative or not required by law. Electronically signed by: John Griffith M.D. 02/10/2020 9:59 AM
[2020-02-10] MEDS ORDERED: LOPERAMIDE HCL 2 MG CAP PO PRN (12:54)
--- NOTE | 2020-02-10 14:52 | Hospitalist Progress Note ---
Date of Service February 10, 2020 Assessment & Plan (1) Colitis: Patient with abdominal pain, colitis noted on CT. Leukemoid reaction with WBC=40.91. She is afebrile, HD stable, chronically ill in appearance though not acutely toxic. based on CT, would be concerned for stercoral colitis, diverticulitis she has bowels sounds, + flatus, burping suppository on 02/04 with no BM enema on 02/04 with some liquid stool and then some small solid pieces of stool, no significant BM moving her bowels since 02/06 C diff negative continue on Cipro/Flagyl IV, WBC down to 10k stop LR as she is tolerating full liquid diet appreciate general surgery consultation appreciate GI recommendations diet advanced to regular, eating a lot better get PT/OT evaluations, likely home tomorrow if strong enough (2) Elevated WBC count: Patient with leukemoid reaction, WBC=40.9 with elevated neutrophils and bands. ?secondary to recent steroid use, infection, malignancy appreciate peripheral smear evaluation, no evidence of malignant cells predominant PMN suggesting acute infection WBC down to 10k continue cipro/flagyl IV, stop Vanco PO as C diff gene negative (3) Lung nodule: Patient follows with Pulmonary for her severe O2 dependant COPD. Former smoker with 43 packyear history. She had a CT of the chest on 01/10/19 which demonstrated severe pulmonary emphysema and resolution of the previously seen subpleural opacities. Stable area of architectural distortion within the PETRA possibly secondary to scarring. CT from 10/07/18 with multiple irregular opacities and irregular 1.9cm opacity in the superior segment of the PETRA. Now with spiculated lesion in the LLL concerning for malignancy CT chest on 02/09 IMPRESSION: 1. No significant change in the nonspecific left lower lobe 2.4 x 1.3 cm focal irregular density. 2. A few new irregular densities within the left lung as described above. These are nonspecific but favor an infectious/inflammatory process. Underlying neoplasm would be difficult to exclude. Chest CT follow-up recommended to evaluate for stability/resolution. 3. Slight increase in size in a single enlarged upper right paraesophageal lymph node. This also bears watching on future examinations to exclude the possibility of a neoplastic process. 4. Emphysema. discussed findings with patient, have her follow up with Dr. Pinzon, her dining room tables set up attendant, likely repeat CT chest in 2-3 months (4) Abdominal pain: Most likely secondary to colitis and constipation as above -Morphine 0.5mg IV q 2 hours as needed. Cautious use of opiates pain is much improved after moving bowels multiple times (5) COPD (chronic obstructive pulmonary disease): Patient with severe O2 dependant COPD. She follows with Pulmonary. States that her respiratory status has been stable -Continue supplemental O2 -Continue home inhalers, Duonebs, Combivent, Trelegy hold Azithromycin for now due to interaction with Cipro (6) Coronary artery disease: Chronic. Stable. Patient denies CP. No EKG evidence of ischemia -Continue ASA QOD -Continue Atorvastatin -Continue Lisinopril (7) Hypertension: Blood pressure stable -Continue Lisinopril -Continue to monitor (8) Anxiety: Chronic -Continue escitalopram -Alprazolam as needed for sleep F/E/N - LR at 80mL/hr until her oral intake improves Ppx - Lovenox 30 Code - DNR/DNI per discussion with patient at time of admission (9) Hypokalemia: a little low at 3.2, likely from GI losses will add back BID replacement (10) Chronic respiratory failure with hypoxia: treated with nasal canula and nebulizers breathing is stable on 3L (11) Severe malnutrition: Severe malnutrition in setting of chronic illness e/b >11% loss in BW over last 6 months encourage PO intake, nutrition supplements, focus on protein intake Admission and Anticipated Discharge Date Admission Date: February 04, 2020 Subjective patient says she is feeling a lot better still waiting on PT/OT evaluations this morning when I saw her CT chest done this morning, discussed results with her, lesion in left lower lobe of lung, chronic emphysema some enlarged lymph nodes recommend repeating CT in a few months, will have her follow up with her dining room tables set up attendant Dr. Pinzon, she agrees with plan no abdominal pain, she is having diarrhea a lot, she actually requests Imodium labs show a WBC of 10k, Hb 10.5, plts 350 K is 3.2 and Cr is stable told her I want her to work with therapy, make sure she is strong enough for home, if so then we can get her home tomorrow Review of Systems Review of Systems: All systems reviewed & are unremarkable except as noted in Subjective Constitutional: no fever Respiratory: no cough and no dyspnea Cardiovascular: no chest pain Gastrointestinal: + diarrhea/loose stools; no abdominal pain, no nausea and no vomiting Musculoskeletal: + muscle weakness Physical Exam Constitutional: well developed, + thin and + frail appearing; no acute distress Eyes: PERRL, conjunctivae normal, anicteric sclerae ENMT: external ear and nose normal, oropharynx normal Neck: trachea midline, no thyromegaly Respiratory: normal respiratory effort, lungs clear to auscultation Cardiovascular: RRR, no murmur, no edema Gastrointestinal (Abdomen): Inspection/Auscultation: abdomen normal to inspection and normal bowel sounds; abdomen not distended Percussion/Palpation: abdomen soft; abdomen nontender, no guarding, abdomen not rigid and no ascites Musculoskeletal: no cyanosis or clubbing, extremities motor strength 5/5 Skin: no rashes, warm and dry Neurologic: patellar DTR's 2+ bilat, sensation intact and PERRL, EOMI, accommodation nl, no face palsy, no dysarthria Psychiatric: A+Ox3, euthymic affect Lymphatic: no cervical or axillary lymphadenopathy Results & Data Results & Data ([facility]) Vital Signs (Past 12 Hours) Vital Signs Temp Pulse Pulse Resp BP BP Pulse Ox 02/10/20 12:09 36.9 C 82 17 114/74 95 02/10/20 07:42 37.0 C 71 17 123/76 97 02/10/20 07:15 74 Laboratory Results Laboratory Results - last 24 hr 02/10/20 02/10/20 08:25 08:25 WBC 10.28 RBC 3.47 L Hgb 10.5 L Hct 31.8 L MCV 91.6 MCH 30.3 MCHC 33.0 RDW Std Deviation 45.6 RDW Coeff of Luis 13.9 Plt Count 350 MPV 8.9 Sodium 138 Potassium 3.2 L Chloride 100 Carbon Dioxide 30 Anion Gap 8.0 BUN 3 L Creatinine 0.53 L Est Cr Clr Drug Dosing 76.2 Est GFR ( Amer) 118.8 Est GFR (Non-Af Amer) 102.5 BUN/Creatinine Ratio 5.5 L Glucose 120 H Calcium 8.[address] chest IMPRESSION: 1. No significant change in the nonspecific left lower lobe 2.4 x 1.3 cm focal irregular density. 2. A few new irregular densities within the left lung as described above. These are nonspecific but favor an infectious/inflammatory process. Underlying neoplasm would be difficult to exclude. Chest CT follow-up recommended to evaluate for stability/resolution. 3. Slight increase in size in a single enlarged upper right paraesophageal lymph node. This also bears watching on future examinations to exclude the possibility of a neoplastic process. 4. Emphysema. Medications Administered Current Inpatient Medications Acetaminophen (Acetaminophen 325 Mg Tab) 650 mg PO Q4H PRN PRN Reason: pain/fever Stop: 03/06/20 00:38 Last Admin: 02/07/20 23:50 Dose: 650 mg Documented by: Albuterol (Albut/Ipratrop 3mg/0.5mg Neb 3 Ml Vial) 3 ml INH QID PRN PRN Reason: sob/wheezing Stop: 03/06/20 01:37 Albuterol (Albuterol Hfa 8 Gm Inhaler (Combivent Respimat P&T Subs)) 1 puffs INH QID PRN PRN Reason: Shortness Of Breath Stop: 03/06/20 01:43 Alprazolam (Alprazolam 0.25 Mg Tablet) 0.25 mg PO DAILY PRN PRN Reason: sleep Stop: 03/06/20 00:38 Last Admin: 02/09/20 16:14 Dose: 0.25 mg Documented by: Aspirin (Aspirin 81 Mg Ectab) 81 mg PO Q2D [facility] Stop: 03/06/20 00:38 Last Admin: 02/09/20 01:18 Dose: 81 mg Documented by: Atorvastatin Calcium (Atorvastatin 40 Mg Tab) 40 mg PO QAM [facility] Stop: 03/06/20 08:59 Last Admin: 02/10/20 07:54 Dose: 40 mg Documented by: Azithromycin (Azithromycin 250 Mg Tab) 250 mg PO MOWEFR [facility] Stop: 03/06/20 08:59 Last Admin: 02/05/20 09:54 Dose: 250 mg Documented by: Enoxaparin Sodium (Enoxaparin Inj 30 Mg/0.3 Ml Syr) 30 mg SQ Q24H [facility]ES[facility] Stop: 03/06/20 07:59 Last Admin: 02/10/20 07:53 Dose: 30 mg Documented by: Escitalopram Oxalate (Escitalopram Oxalate 20 Mg Tab) 20 mg PO QAM TRES[facility] Stop: 03/06/20 08:59 Last Admin: 02/10/20 07:53 Dose: 20 mg Documented by: Fluticasone Furoate (Fluticasone Furoate 100mcg 14 Puffs/Inhaler) 1 puffs INH DAILY [facility] Stop: 03/06/20 08:59 Last Admin: 02/10/20 07:49 Dose: 1 puffs Documented by: Ciprofloxacin (Cipro / D5w) 400 mg in 200 mls @ 100 mls/hr IV Q12H [facility]; Protocol Stop: 02/15/20 11:59 Last Infusion: 02/10/20 14:09 Dose: Infused Documented by: Metronidazole (Flagyl) 500 mg in 100 mls @ 100 mls/hr IV Q8H [facility] Stop: 02/15/20 10:59 Last Infusion: 02/10/20 11:55 Dose: Infused Documented by: Ipratropium [place] (Ipratropium Hfa Inhaler (Combivent Respimat P&T Subs)) 1 puffs INH QID PRN PRN Reason: sob/wheezing Stop: 03/06/20 01:43 Lisinopril (Lisinopril 2.5 Mg Tab) 2.5 mg PO QAM [facility] Stop: 03/06/20 08:59 Last Admin: 02/10/20 07:54 Dose: 2.5 mg Documented by: Loperamide HCl (Loperamide Hcl 2 Mg Cap) 2 mg PO Q6 PRN PRN Reason: Diarrhea Stop: 03/11/20 12:53 Last Admin: 02/10/20 13:21 Dose: 2 mg Documented by: Menthol (Cough Drop (Sugar Free) Patricia 24 Patricia/1 Box) 1 patricia BUCCAL PRN PRN PRN Reason: Sore Throat Stop: 03/10/20 11:51 Last Admin: 02/09/20 12:10 Dose: 1 patricia Documented by: Morphine Sulfate (Morphine Sulfate 2 Mg/Ml Carp) 0.5 mg IV Q2H PRN PRN Reason: Pain Stop: 02/19/20 00:38 Last Admin: 02/06/20 03:21 Dose: 0.5 mg Documented by: Ondansetron HCl (Ondansetron Inj 2 Mg/Ml 2 Ml Vial) 4 mg IV Q6H PRN PRN Reason: Nausea Stop: 03/06/20 00:38 Last Admin: 02/06/20 18:15 Dose: 4 mg Documented by: Potassium Chloride (Potassium Chloride 10 Meq Tabcr) 10 meq PO BID TRESA Stop: 03/11/20 09:29 Last Admin: 02/10/20 09:58 Dose: 10 meq Documented by: Simethicone (Simethicone 80 Mg Chew) 80 mg PO Q6H PRN PRN Reason: Gas or Constipation Stop: 03/06/20 11:01 Last Admin: 02/09/20 21:32 Dose: 80 mg Documented by: Sodium Biphosphate/Sodium Phosphate (Sod Phosphate/Sod Biphosphate Enema 132 Ml Btl) 132 ml [place] DAILY PRN PRN Reason: Constipation Stop: 03/06/20 11:00 Last Admin: 02/05/20 15:18 Dose: 132 ml Documented by: Umeclidinium/Vilanterol (Umeclidinium/Vilanterol 62.5/25mcg 7 Puffs/Inhaler) 1 puffs INH QAM [facility]ES[facility] Stop: 03/06/20 08:59 Last Admin: 02/10/20 07:49 Dose: 1 puffs Documented by: PG Care Time/CCT Total # of Minutes Spent Total Time Spent with Patient: Total time spent is greater than 50% in coordination of care (as documented) at patient's floor/unit and/or counseling patient: Coding Level of Care Code 39378 Subseq Hosp Care Lvl 3 Diagnoses Colitis K52.9 Elevated WBC count D72.829 Leukocytosis type: unspecified Lung nodule R91.1 Abdominal pain R10.30 Abdominal location: lower abdomen, unspecified COPD (chronic obstructive pulmonary disease) J43.9 COPD type: emphysema Emphysema type: unspecified Coronary artery disease I25.10 Coronary Disease-Associated Artery/Lesion type: [place] artery [place] vs. transplanted heart: [place] heart Associated angina: without angina Hypertension I10 Hypertension type: essential hypertension Anxiety F41.9 Hypokalemia E87.6 Chronic respiratory failure with hypoxia J96.11 Severe malnutrition E43 (1) Elevated WBC count Leukocytosis type: unspecified Qualified Code(s): D72.829 - Elevated white blood cell count, unspecified (2) Abdominal pain Abdominal location: lower abdomen, unspecified Qualified Code(s): R10.30 - Lower abdominal pain, unspecified (3) COPD (chronic obstructive pulmonary disease) COPD type: emphysema Emphysema type: unspecified Qualified Code(s): J43.9 - Emphysema, unspecified (4) Coronary artery disease Coronary Disease-Associated Artery/Lesion type: [place] artery [place] vs. transplanted heart: [place] heart Associated angina: without angina Qualified Code(s): I25.10 - Atherosclerotic heart disease of [place] coronary artery without angina pectoris (5) Hypertension Hypertension type: essential hypertension Qualified Code(s): I10 - Essential (primary) hypertension
[2020-02-10] MEDS: ACETAMINOPHEN 325 MG TAB PO PRN (18:19)
[2020-02-11] MEDS: CIPROFLOXACIN / D5W 400 MG/200 ML BAG IV SCH
[2020-02-11] MEDS: SIMETHICONE 80 MG CHEW PO PRN
[2020-02-11] MEDS: ASPIRIN 81 MG ECTAB PO SCH (00:01)
[2020-02-11] MEDS: metroNIDAZOLE 500 MG/100 ML BAG IV SCH (03:21)
[2020-02-11 05:54] LABS: Hematocrit (blood only) 31.2 % (37-47); Hemoglobin 9.9 g/dL (12.0-16.0); Mean Corpuscular Hemoglobin 29.6 pg (25-34); Mean Corpuscular Hgb Conc 31.7 g/dL (32-36); Mean Corpuscular Volume 93.1 fL (80-100); Mean Platelet Volume 8.8 fL (7.4-10.4); Platelet Count 375 K/uL (130-400); RDW Coefficient of Variation 14.2 % (11.5-14.5); Red Blood Count 3.35 M/uL (4.2-5.4); White Blood Count 9.12 K/uL (4.8-10.8)
[2020-02-11 06:33] LABS: Albumin Level 2.1 gm/dl (3.4-5.0); BUN Creatinine Ratio 6.1 (10-20); Calcium 7.7 mg/dl (8.5-10.1); Creatinine Clr Calc Pharmacy 71.5 ml/min; Est GFR (African American) 120.3; Est GFR (Non-African American) 103.8; Potassium 3.5 mmol/L (3.5-5.1)
[2020-02-11 06:36] LABS: Albumin Globulin Ratio 0.7 (0.9-2); Bilirubin,Total 0.3 mg/dl (0.2-1); Globulin 3.1 gm/dl (2.5-4.0); Total Protein 5.2 gm/dl (6.4-8.2)
[2020-02-11] MEDS: UMECLIDINIUM/VILANTEROL 62.5/25MCG 7 PUFFS/INHALER INH SCH (07:57)
[2020-02-11] MEDS: FLUTICASONE FUROATE 100MCG 14 PUFFS/INHALER INH SCH (07:57)
[2020-02-11] MEDS: ESCITALOPRAM OXALATE 20 MG TAB PO SCH (07:57)
[2020-02-11] MEDS: POTASSIUM CHLORIDE 10 MEQ TABCR PO SCH (07:58)
[2020-02-11] MEDS: ENOXAPARIN INJ 30 MG/0.3 ML SYR SQ SCH (07:58)
[2020-02-11] MEDS: ATORVASTATIN 40 MG TAB PO SCH (07:58)
--- NOTE | 2020-02-13 21:39 | Discharge Summary ---
Date of Service February 11, 2020 Admission HPI Per Admitting Provider Madi Romo is a pleasant 59yo female with history of 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 Patient states that she hasn't had a normal bowel movement for days. When she tries to have a BM or pass flatus she passes material that "looks like KY jelly". She has been having severe lower abdominal cramping as well. Poor appetite, decreased PO intake and unintentional weight loss - patient unable to quantify amount. Elevated body temperature to 99 with chills. Also with nausea and two episodes of non-bloody/non-bilious vomiting today. Today she noted some abdominal bloating and distention which is why she came to the ER. She denies chest pain/SOB/cough. Denies dysuria/rashes. No melena or hematochezia. Patient was recently diagnosed with PNA - she follows with Pulmonary and was called in a prescription for Prednisone and Levaquin - both issued on 01/22/20. Patient just completed her prednisone taper - 40mg to be tapered over 12 days as well as Levaquin 750mg po daily x 7 day course. Reports her breathing is near baseline. No increased SOB/Cough or wheeze ER Course: Toradol 15mg, Zosyn 3.375gm, NSS Principal Diagnosis Diverticulitis, colitis Discharge Exam Constitutional well developed, + thin and + frail appearing; no acute distress Eyes PERRL, conjunctivae normal, anicteric sclerae ENMT external ear and nose normal, oropharynx normal Neck trachea midline, no thyromegaly Respiratory normal respiratory effort, lungs clear to auscultation Cardiovascular RRR, no murmur, no edema Gastrointestinal (Abdomen) Inspection/Auscultation: abdomen normal to inspection and normal bowel sounds; abdomen not distended Percussion/Palpation: abdomen soft; abdomen nontender, no guarding, abdomen not rigid and no ascites Musculoskeletal no cyanosis or clubbing, extremities motor strength 5/5 Skin no rashes, warm and dry Neurologic patellar DTR's 2+ bilat, sensation intact and PERRL, EOMI, accommodation nl, no face palsy, no dysarthria Psychiatric A+Ox3, euthymic affect Lymphatic no cervical or axillary lymphadenopathy Discharge Data Allergies Allergy/AdvReac Type Severity Reaction Status Date / Time Bactrim Allergy Severe THROAT AND Verified 02/14/17 00:52 EARS SWELL bupropion [From Wellbutrin] Allergy Severe Verified 02/15/20 10:57 sulfamethoxazole Allergy Severe THROAT AND Verified 02/15/20 10:57 EARS SWELL trimethoprim Allergy Severe THROAT AND Verified 02/15/20 10:57 EARS SWELL codeine AdvReac Intermediate STOMACH Verified 02/15/20 10:57 CRAMPS, "KNOCKS ME OUT FOR DAYS" Consultations 02/04/20 21:36 ED Decision to Admit Stat 02/05/20 00:39 Consult General Surgery Routine 02/05/20 14:58 Consult Gastroenterology Routine Ordered Studies 02/04/20 19:52 CT abd pelvis wo con Urgent 02/10/20 09:00 CT chest w con Routine Hospital Course (1) Colitis: Patient with abdominal pain, colitis noted on CT. Leukemoid reaction with WBC=40.91. She is afebrile, HD stable, chronically ill in appearance though not acutely toxic. based on CT, would be concerned for stercoral colitis, diverticulitis she has bowels sounds, + flatus, burping suppository on 02/04 with no BM enema on 02/04 with some liquid stool and then some small solid pieces of stool, no significant BM moving her bowels since 02/06 C diff negative continue on Cipro/Flagyl IV, WBC down to normal stopped LR as she is tolerating regular diet for two days appreciate general surgery consultation appreciate GI recommendations get PT/OT evaluations, can go home, she is strong enough finish course of Cipro/Flagyl GI recommends colonoscopy in 6-8 weeks, [facility] will contact patient (2) Elevated WBC count: Patient with leukemoid reaction, WBC=40.9 with elevated neutrophils and bands. ?secondary to recent steroid use, infection, malignancy appreciate peripheral smear evaluation, no evidence of malignant cells predominant PMN suggesting acute infection WBC down to normal for two days continue cipro/flagyl IV, stop Vanco PO as C diff gene negative finish course of Cipro/Flagyl PO (3) Lung nodule: Patient follows with Pulmonary for her severe O2 dependant COPD. Former smoker with 43 packyear history. She had a CT of the chest on 01/10/19 which demonstrated severe pulmonary emphysema and resolution of the previously seen subpleural opacities. Stable area of architectural distortion within the PETRA possibly secondary to scarring. CT from 10/07/18 with multiple irregular opacities and irregular 1.9cm opacity in the superior segment of the PETRA. Now with spiculated lesion in the LLL concerning for malignancy CT chest on 02/09 IMPRESSION: 1. No significant change in the nonspecific left lower lobe 2.4 x 1.3 cm focal irregular density. 2. A few new irregular densities within the left lung as described above. These are nonspecific but favor an infectious/inflammatory process. Underlying neoplasm would be difficult to exclude. Chest CT follow-up recommended to evaluate for stability/resolution. 3. Slight increase in size in a single enlarged upper right paraesophageal lymph node. This also bears watching on future examinations to exclude the possibility of a neoplastic process. 4. Emphysema. discussed findings with patient, discussed with Dr. Pinzon, her grid inspector he recommends 5 days of Zithromax to treat infectious etiology wants to repeat CT chest in 6 weeks patient made aware of the plan (4) Abdominal pain: Most likely secondary to colitis and constipation as above -Morphine 0.5mg IV q 2 hours as needed. Cautious use of opiates pain is resolved after moving bowels multiple times (5) COPD (chronic obstructive pulmonary disease): Patient with severe O2 dependant COPD. She follows with Pulmonary. States that her respiratory status has been stable -Continue supplemental O2 -Continue home inhalers, Duonebs, Combivent, Trelegy hold Azithromycin for now due to interaction with Cipro (6) Coronary artery disease: Chronic. Stable. Patient denies CP. No EKG evidence of ischemia -Continue ASA QOD -Continue Atorvastatin -Continue Lisinopril (7) Hypertension: Blood pressure stable -Continue Lisinopril -Continue to monitor (8) Anxiety: Chronic -Continue escitalopram -Alprazolam as needed for sleep Ppx - Lovenox 30 Code - DNR/DNI per discussion with patient at time of admission (9) Hypokalemia: resolved after PO replacement (10) Chronic respiratory failure with hypoxia: treated with nasal canula and nebulizers breathing is stable on 3L (11) Severe malnutrition: Severe malnutrition in setting of chronic illness e/b >11% loss in BW over last 6 months encourage PO intake, nutrition supplements, focus on protein intake Total Time Total Time Spent Total Time Spent (In Minutes): 37 minutes Total Time Includes: Examination of the Patient, Discharge Planning, Medication Reconciliation and Communication With Other Providers (discussed with Dr. Pinzon) Discharge Plan Discharge Items Patient Disposition: Home - Self-Care Reason For Visit: DIARRHEA, COLITIS Discharge Diagnosis: Diverticulitis Stercoral colitis CT chest showing pulmonary nodule left lower lobe Hypokalemia Condition on Discharge: Good Goals: stay well hydrated, well nourished follow up CT chest in 6 weeks follow up with Dr. Pinzon follow up with [facility] for colonoscopy in 6-8 weeks Activity: Resume your previous activity Weightbearing: Full weightbearing Non-emergency contact: Primary Care Provider Call non-emergency contact if: you have any medication questions, your symptoms worsen and you have a fever Follow-up/Referrals: Rocael Pinzon MD [Physician] - (6-8 weeks) Nixon Tilley [Physician] - (needs colonoscopy in 6-8 weeks) Parrish Hadley [Primary Care Provider] - (one week, would like you to be seen by end of this week) Diet: Regular Addtl Attending Provider Instructions: Medications: - CIPROFLOXACIN: take twice a day for 7 more doses, next dose due this evening - FLAGYL: take three times a day for 12 more doses, next dose is this afternoon - ZITHROMAX: typically you take this three times a week for maintenance, it has been held due to interaction with Cipro continue to hold until , then, you need to take Zithromax 250mg DAILY for 5 days in a row so you will take it every day from February 14 through February 18, then resume taking it three times a week, so take on February 20 and so forth - IMODIUM: only take as needed if stools are loose Colitis, possible diverticulitis responded really well to IV cipro and flagyl, WBC down to normal for several days, no pain, moving bowels you need 10 days total antibiotics, this will be until Wednesday, complete the Cipro and Flagyl as prescribed only use the Imodium as needed if stools are excessively loose, you came in with constipation so want the bowels to be moving stay well hydrated, make sure you take fiber supplement daily avoid really dense foods such as vegetables, fruits with skins etc for the next few weeks [facility] gastroenterology would like you to get a colonoscopy in 6-8 weeks, their office should contact you Left lower lobe lesion/nodule first saw on CT abdomen/pelvis, confirmed with dedicated CT chest discussed with Dr. Pinzon, he wants you to have a repeat CT chest in 6 weeks he wants to treat a possible inflammatory/infectious component, so you need to take the Zithromax 5 days in a row, start this on 02/14 would start it earlier but Zithromax interacts with Cipro so I don't want you to start it until the cipro is completed please follow up with Dr. Hadley this week, request that he orders the CT of the chest 6 weeks from 02/03, this would be the week of 03/11/20 Pending Studies at Discharge: No Stand-Alone Forms: My [facility], Smoking Cessation Medications and DC Order Prescriptions: New loperamide 2 mg Capsule 2 mg PO Q6 PRN (Reason: loose stool) 7 Days Qty: 30 RF: 0 Continued alprazolam 0.25 mg tablet 0.25 mg PO DAILY PRN (Reason: sleep) RF: 0 atorvastatin 40 mg tablet 40 mg PO QAM RF: 0 lisinopril 2.5 mg tablet 2.5 mg PO QAM RF: 0 aspirin [Adult Low Dose Aspirin] 81 mg tablet,delayed release (DR/EC) 81 mg PO Q2D RF: 0 escitalopram oxalate 20 mg tablet 20 mg PO QAM RF: 0 azithromycin 250 mg tablet 250 mg PO MOWEFR RF: 0 Discontinued levofloxacin [Levaquin] 750 mg tablet 750 mg PO DAILY 7 Days Qty: 7 RF: 0 No Action Trelegy Ellipta 100-62.5-25 mcg blister with device 1 inh INHALATION QAM Qty: 60 RF: 3 ipratropium-albuterol 0.5 mg-3 mg(2.5 mg base)/3 mL solution for nebulization 3 ml INHALATION QID PRN (Reason: SOB/WHEEZING) Qty: 180 RF: 5 Combivent Respimat 20-100 mcg/actuation mist 1 puff INHALATION QID PRN (Reason: SOB/WHEEZING) Qty: 4 RF: 2 Discharge Orders: Discharge Order (Routine); Ordered 02/11/20 Ordered By: Home Gibbs Admission Data Admit Date/Time: 02/04/20 23:12 Attending Provider: Home Gibbs Admit Provider: Elida Vernon Primary Care Provider: Parrish Hadlye Other Providers: Elida Vernon ; Erica Nguyễn ; Alex Gibbs ; Alessandra Hurtado ; Felix Rodriguez ; Daisy Noriega ; Nixon Tilley ; Liliana Singer ; Nely Lpoez ; Marina Yoon ; Arsenio Bridges ; Micah Chawla ; Marilu Begum ; Kinsey Gandhi ; Celeste Boateng ; Bisi Grossman ; Kobe Rose Other Interventions: Discharge Summary Assessment (RN) Last Done: 02/11/20 10:27 Coding Level of Care Code D/C Day Management >30 mins Diagnoses Colitis K52.9 Elevated WBC count D72.829 Leukocytosis type: unspecified Lung nodule R91.1 Abdominal pain R10.30 Abdominal location: lower abdomen, unspecified COPD (chronic obstructive pulmonary disease) J43.9 COPD type: emphysema Emphysema type: unspecified Coronary artery disease I25.10 Associated angina: without angina Coronary Disease-Associated Artery/Lesion type: [place] artery [place] vs. transplanted heart: [place] heart Hypertension I10 Hypertension type: essential hypertension Anxiety F41.9 Hypokalemia E87.6 Chronic respiratory failure with hypoxia J96.11 Severe malnutrition E43
== END 2020-02-11 11:09 | disposition home or self-care (01) | DRG 814 ==
LOC: ED 19:16 → 3W 02-05 00:12 → SUATTDRO 02-05 00:35 → 2N 02-05 01:42 → 2W 02-10 04:12

== ENCOUNTER 2021-05-29 12:05 | Inpatient (IN) ==
[2021-05-29] MEDS ORDERED: CEFEPIME 2,000 MG/20 ML VIAL IV STA (13:07)
[2021-05-29] MEDS ORDERED: SODIUM CHLORIDE 0.9% 1000ML 1,000 ML IV SCH (13:15)
--- NOTE | 2021-05-29 13:24 | Emergency Department Note ---
History of Present Illness General Chief complaint: Shortness of Breath/Dyspnea Stated complaint: covid+, oxygen 83, sob Time Seen by Provider: 05/29/21 13:06 History of Present Illness 60-year-old female presents to the ED with a chief complaint of shortness of breath. The patient states that she has had COVID symptoms since 21 May, 8 days ago. She reports she had a positive test that was done yesterday. She got the results today. She usually uses 2 L of oxygen at home related to her COPD. She was 83% saturations here on 2 L. The patient states that she has had increasing shortness of breath since the as well as a cough. She also initially had some diarrhea, sore throat and appetite decreased. Exertion makes her symptoms worse. Home Medications Medication Instructions Recorded Confirmed Type alprazolam 0.25 mg tablet 0.25 mg PO DAILY PRN 03/14/19 05/29/21 History atorvastatin 40 mg tablet 40 mg PO HS 03/14/19 05/29/21 History lisinopril 2.5 mg tablet 2.5 mg PO QAM 03/14/19 05/29/21 History aspirin 81 mg tablet,delayed 81 mg PO Q2D 04/25/19 05/29/21 History release (Adult Low Dose Aspirin) escitalopram oxalate 20 mg tablet 20 mg PO HS 02/04/20 05/29/21 History ipratropium 0.5 mg-albuterol 3 mg 3 ml INHALATION QID PRN #180 ml 09/13/20 05/29/21 Rx (2.5 mg base)/3 mL nebulization soln ipratropium 20 mcg-albuterol 100 1 puff INHALATION QID PRN #4 g 09/13/20 05/29/21 Rx mcg/actuation mist for inhalation (Combivent Respimat) spironolactone 25 mg tablet 25 mg PO 3XWK 02/02/21 05/29/21 History (Aldactone) azithromycin 250 mg tablet 250 mg PO MOWEFR #36 tab 02/11/21 05/29/21 Rx fluticasone fur. 100 mcg-umeclid 1 inh INHALATION QAM #60 ea 02/11/21 05/29/21 Rx 62.5 mcg-vilant 25 mcg inhalat.powder (Trelegy Ellipta) cholecalciferol (vitamin D3) 25 25 mcg PO DAILY 03/26/21 05/29/21 History mcg (1,000 unit) capsule multivitamin (Multiple Vitamins) 1 tab PO DAILY 03/26/21 05/29/21 History buspirone 5 mg tablet 5 mg PO TID 05/29/21 05/29/21 History Allergies Allergy/AdvReac Type Severity Reaction Status Date / Time Bactrim Allergy Severe THROAT AND Verified 02/14/17 00:52 EARS SWELL bupropion [From Wellbutrin] Allergy Severe Unknown Verified 05/29/21 13:57 sulfamethoxazole Allergy Severe THROAT AND Verified 05/29/21 13:57 EARS SWELL trimethoprim Allergy Severe THROAT AND Verified 05/29/21 13:57 EARS SWELL codeine AdvReac Intermediate STOMACH Verified 05/29/21 13:57 CRAMPS, "KNOCKS ME OUT FOR DAYS" Past Med/Surg History Medical History (Updated 05/29/21 @ 17:07 by Bruno Roberts DO) Abdominal pain Acid reflux Bronchitis Colitis COPD (chronic obstructive pulmonary disease) Coronary artery disease Elevated WBC count Emphysema of lung Heart disease Hypertension Myocardial infarct Nausea Pneumonia Surgical History History of appendectomy History of hysterectomy History of tonsillectomy Stented coronary artery Social History Smoking Status: Never smoker Tobacco Type: Cigarettes Cigarettes Per Day: 20; Second Hand Exposure: Yes; Hx Alcohol Use: No Hx Substance Use: No Preferred Language: Greenlandic Communication Ability: Effective Beliefs That Will Affect Care: None Current Living Situation: Spouse Current Living Situation Comment: Feels Safe at Home: Yes Assistive Devices: Oxygen - Continuous Review of Systems A total of 10 systems reviewed and were otherwise negative Physical Exam Vital Signs Vital Signs - 24 hr 05/29/21 12:32 05/29/21 15:08 05/29/21 16:56 Temperature 37.4 C Temperature Source Temporal Artery Scan Pulse Rate 104 H Pulse Rate [Left Apical] 98 H Pulse Rhythm [Left Apical] Regular Pulse Strength [Left Apical] Normal Respiratory Rate 20 20 22 Respiratory Effort / Characteristics Non-Labored Spontaneous Non-Labored Non-Labored Respiratory Depth Normal Normal Respiratory Pattern Regular Regular Blood Pressure 123/64 Blood Pressure [Left Arm] 121/63 Blood Pressure Mean 83 Blood Pressure Mean [Left Arm] 82 Blood Pressure Position Sitting Blood Pressure Position [Left Arm] Lying Pulse Oximetry 83 L 93 91 Oxygen Delivery Method Nasal Cannula Nasal Cannula Oxymask Oxygen Flow Rate 3 3 3 Sepsis Recent Fever Within 48 Hours No Sepsis New/Unexplained Change in Mental Status No Sepsis Action Taken by Nursing No Action Required 05/29/21 16:57 Temperature Temperature Source Pulse Rate Pulse Rate [Left Apical] Pulse Rhythm [Left Apical] Pulse Strength [Left Apical] Respiratory Rate Respiratory Effort / Characteristics Respiratory Depth Respiratory Pattern Blood Pressure Blood Pressure [Left Arm] Blood Pressure Mean Blood Pressure Mean [Left Arm] Blood Pressure Position Blood Pressure Position [Left Arm] Pulse Oximetry 91 Oxygen Delivery Method Oxymask Oxygen Flow Rate 3 Sepsis Recent Fever Within 48 Hours Sepsis New/Unexplained Change in Mental Status Sepsis Action Taken by Nursing CONSTITUTIONAL/VITAL SIGNS: Reviewed / noted above. GENERAL: Non-toxic in appearance. INTEGUMENTARY: Warm, dry, and [place]. HEAD: Normocephalic. EYES: without scleral icterus or trauma. ENT/OROPHARYNX: clear and moist. LYMPHADENOPATHY/NECK: Is supple without lymphadenopathy or meningismus. RESPIRATORY: Clear on inspiration with some wheezing on expiration bilaterally. No increased work of breathing. CARDIOVASCULAR: Regular rate and rhythm. GI/ABDOMEN: Soft and nontender. No organomegaly or pulsatile mass. EXTREMITIES: Warm and well perfused. BACK: No CVA tenderness. NEUROLOGICAL: Intact without focal deficits. PSYCHIATRIC: normal affect. MUSCULOSKELETAL: Normally developed with good muscle tone. TRIAGE NURSING DOCUMENTATION REVIEWED. Course Administered Medications Discontinued Medications Albuterol (Albut/Ipratrop 3mg/0.5mg Neb 3 Ml Vial) 3 ml NEB NOW STA; Protocol Stop: 05/29/21 14:05 Last Admin: 05/29/21 14:30 Dose: 3 ml Documented by: [id number] Dexamethasone Sodium Phosphate (DexamethasonePf 10 Mg/Ml Vial) 6 mg IV NOW ONE Stop: 05/29/21 14:05 Last Admin: 05/29/21 14:29 Dose: 6 mg Documented by: [id number] Sodium Chloride (Nss 1000ml) 1,000 mls @ 999 mls/hr IV .Q1H1M TRESA Stop: 05/29/21 14:15 Last Infusion: 05/29/21 14:32 Dose: 0 mls/hr Documented by: [id number] Admin: 05/29/21 13:30 Dose: 999 mls/hr Documented by: [id number] Cefepime HCl (Maxipime) 2,000 mg in 20 mls @ 5 mls/min IV NOW STA; Protocol Stop: 05/29/21 13:10 Last Admin: 05/29/21 13:30 Dose: 5 mls/min Documented by: [id number] Critical Care Time Critical Care Time: Yes Total Critical Care Time: 30 I have personally spent 30 minutes of critical care time in the direct management of this patient. This includes bedside care, interpretation of diagn ostic studies, and testing, discussion with consultants, patient, and family members, and other required patient management activities. This 30 minutes is in excess of all separately billable procedures. Medical Decision Making Differential Diagnosis The differential was considered includes acute myocardial infarction, acute coronary syndrome, myocarditis, pericarditis, pericardial effusions /tamponad, esophageal perforation, pulmonary embolism, pneumonia, pneumothorax, cardiomyopathy, congestive heart, anemia , COPD/asthma exacerbation. Medical Records Attestation: I reviewed the patient's medical records. Home Medications Current Medication List: was personally reviewed by me Laboratory Data Attestation: I reviewed the patient's lab results. Result diagrams: 05/29/21 13:23 05/29/21 13:23 Lab Results 05/29/21 05/29/21 05/29/21 Range/Units 13:23 13:23 13:23 WBC 7.46 (4.8-10.8) K/uL RBC 4.31 (4.2-5.4) M/uL Hgb 13.2 (12.0-16.0) g/dL Hct 39.9 (37-47) % MCV 92.6 (80-100) fL MCH 30.6 (25-34) pg MCHC 33.1 (32-36) g/dL RDW Std Deviation 45.0 (36.4-46.3) fL RDW Coeff of Luis 13.2 (11.5-14.5) % Plt Count 400 (130-400) K/uL MPV 9.6 (7.4-10.4) fL Immature Gran % (Auto) 0.1 % Neut % (Auto) 84.6 % Lymph % (Auto) 6.2 % [place] % (Auto) 8.8 % Eos % (Auto) 0.0 % Baso % (Auto) 0.3 % Neut # (Auto) 6.31 (1.4-6.5) K/uL Lymph # (Auto) 0.46 L (1.2-3.4) K/uL [place] # (Auto) 0.66 H (0.11-0.59) K/uL Eos # (Auto) 0.00 (0-0.5) K/uL Baso # (Auto) 0.02 (0-0.2) K/uL Immature Gran # (Auto) 0.01 (0.00-0.02) K/uL PT (9.0-12.0) Seconds INR (0.9-1.1) APTT (21.0-31.0) Seconds PTT Ratio Sodium 135 L (136-145) mmol/L Potassium 3.9 (3.5-5.1) mmol/L Chloride 96 L (98-107) mmol/L Carbon Dioxide 25 (21-32) mmol/L Anion Gap 14 H (3-11) BUN 17 (6-23) mg/dl Creatinine 0.63 (0.6-1.2) mg/dl Est Cr Clr Drug Dosing Not Reportable Est GFR ( Amer) 111.4 ml/min Est GFR (Non-Af Amer) 96.1 ml/min BUN/Creatinine Ratio 27.0 H (10-20) Glucose 100 H (70-99(Fasting)) mg/dl Lactate (0.4-2.0) mmol/L Calcium 8.9 (8.5-10.1) mg/dl Magnesium 2.1 (1.7-2.4) mg/dl Total Bilirubin 0.8 (0.2-1.0) mg/dl AST 84 H (13-39) U/L ALT 60 H (7-52) U/L Alkaline Phosphatase 72 (34-104) U/L C-Reactive Protein 16.82 H (0-0.5) mg/dl Total Protein 7.1 (6.0-8.3) gm/dl Albumin 3.8 (3.4-5.0) gm/dl Globulin 3.3 (2.5-4.0) gm/dl Albumin/Globulin Ratio 1.2 (0.9-2) Procalcitonin 0.19 (0-0.5) ng/ml 05/29/21 05/29/21 Range/Units 13:23 13:23 WBC (4.8-10.8) K/uL RBC (4.2-5.4) M/uL Hgb (12.0-16.0) g/dL Hct (37-47) % MCV (80-100) fL MCH (25-34) pg MCHC (32-36) g/dL RDW Std Deviation (36.4-46.3) fL RDW Coeff of Luis (11.5-14.5) % Plt Count (130-400) K/uL MPV (7.4-10.4) fL Immature Gran % (Auto) % Neut % (Auto) % Lymph % (Auto) % [place] % (Auto) % Eos % (Auto) % Baso % (Auto) % Neut # (Auto) (1.4-6.5) K/uL Lymph # (Auto) (1.2-3.4) K/uL [place] # (Auto) (0.11-0.59) K/uL Eos # (Auto) (0-0.5) K/uL Baso # (Auto) (0-0.2) K/uL Immature Gran # (Auto) (0.00-0.02) K/uL PT 10.8 (9.0-12.0) Seconds INR 1.1 (0.9-1.1) APTT 31.9 H (21.0-31.0) Seconds PTT Ratio 1.2 Sodium (136-145) mmol/L Potassium (3.5-5.1) mmol/L Chloride (98-107) mmol/L Carbon Dioxide (21-32) mmol/L Anion Gap (3-11) BUN (6-23) mg/dl Creatinine (0.6-1.2) mg/dl Est Cr Clr Drug Dosing Est GFR ( Amer) ml/min Est GFR (Non-Af Amer) ml/min BUN/Creatinine Ratio (10-20) Glucose (70-99(Fasting)) mg/dl Lactate 1.4 (0.4-2.0) mmol/L Calcium (8.5-10.1) mg/dl Magnesium (1.7-2.4) mg/dl Total Bilirubin (0.2-1.0) mg/dl AST (13-39) U/L ALT (7-52) U/L Alkaline Phosphatase (34-104) U/L C-Reactive Protein (0-0.5) mg/dl Total Protein (6.0-8.3) gm/dl Albumin (3.4-5.0) gm/dl Globulin (2.5-4.0) gm/dl Albumin/Globulin Ratio (0.9-2) Procalcitonin (0-0.5) ng/ml Imaging Data Radiologist's Impression: Chest X-Ray 05/29/21 13:08 XR chest 1V portable CLINICAL HISTORY: SEPSIS. Evaluate cardiopulmonary status COMPARISON STUDY: 05/14/2021 TECHNIQUE: 1 view of the chest FINDINGS: Single frontal view of the chest demonstrates the cardiomediastinal silhouette to be within normal limits. There is hyperinflation of the lungs with attenuation of the pulmonary vasculature peripherally characteristic of underlying chronic obstructive pulmonary disease. Has been interval development of patchy interstitial and alveolar opacities in the left lung base c haracteristic of early pneumonia. The remainder of the lungs are clear. There is no evidence for pleural effusion. There is no evidence for vascular congestion. There is no acute osseous pathology. IMPRESSION: COPD with interval development of patchy interstitial and alveolar opacities at the left lung base characteristic of early pneumonia. ACT 112: Negative or not required by law. Electronically signed by: Taurus Duron M.D. 05/29/2021 1:43 PM ECG Data Attestation: I personally reviewed and interpreted this ECG as follows: Additional Comments: Twelve-lead EKG: Per my interpretation shows a normal sinus rhythm at a rate of 93. No ST elevation. No PVCs. Normal QTC. MDM Narrative Patient presents with shortness of breath in the setting of chronic COPD and a positive COVID test that was done yesterday. She has had symptoms for about 8 days. Increasing shortness of breath over time and with exertion. Saturations here on 3 L was 83%. She is typically on 2 L at home. The patient shows a normal sinus rhythm at a rate of 93. Chest x-ray to suggest a left lower lobe infiltrate. CRP is elevated at 16.8. AST and ALT are slightly elevated. CBC was normal. Because of the patient's hypoxia on her home oxygen, positive COVID test and chest x-ray showed pneumonia, she will be seen by the hospitalist for further inpatient evaluation and care. She was given IV Decadron, IV fluids, IV cefepime and an albuterol DuoNeb treatment. Impression & Plan COVID, Left lower lobe pneumonia, Hypoxia Discharge Plan Visit Data Chief Complaint: Shortness of Breath/Dyspnea Stated Complaint: covid+, oxygen 83, sob ED Provider: Bruno Roberts Discharge Problem: COVID, Left lower lobe pneumonia, Hypoxia Patient Disposition: Being Evaluated by Hospitalist Forms Stand Alone Forms: [facility] Prescriptions Prescriptions: No Action alprazolam 0.25 mg tablet 0.25 mg PO DAILY PRN (Reason: sleep) RF: 0 atorvastatin 40 mg tablet 40 mg PO HS RF: 0 lisinopril 2.5 mg tablet 2.5 mg PO QAM RF: 0 aspirin [Adult Low Dose Aspirin] 81 mg tablet,delayed release (DR/EC) 81 mg PO Q2D RF: 0 multivitamin [Multiple Vitamins] Tablet 1 tab PO DAILY RF: 0 cholecalciferol (vitamin D3) 25 mcg (1,000 unit) capsule 25 mcg PO DAILY RF: 0 ipratropium-albuterol 0.5 mg-3 mg(2.5 mg base)/3 mL solution for nebulization 3 ml INHALATION QID PRN (Reason: SOB/WHEEZING) Qty: 180 RF: 5 Combivent Respimat 20-100 mcg/actuation mist 1 puff INHALATION QID PRN (Reason: SOB/WHEEZING) Qty: 4 RF: 3 Trelegy Ellipta 100-62.5-25 mcg blister with device 1 inh INHALATION QAM Qty: 60 RF: 7 azithromycin 250 mg tablet 250 mg PO MOWEFR Qty: 36 RF: 3 escitalopram oxalate 20 mg tablet 20 mg PO HS RF: 0 spironolactone [Aldactone] 25 mg tablet 25 mg PO [id number] RF: 0 buspirone 5 mg tablet 5 mg PO TID RF: 0 Referrals Referrals: Parrish Hadley [Primary Care Provider] -
[2021-05-29 13:43] LABS: Basophils # (auto) 0.02 K/uL (0-0.2); Basophils % (auto) 0.3 %; Hematocrit (blood only) 39.9 % (37-47); Hemoglobin 13.2 g/dL (12.0-16.0); Immature Granulocytes # (auto) 0.01 K/uL (0.00-0.02); Immature Granulocytes % (auto) 0.1 %; Lymphocytes # (auto) 0.46 K/uL (1.2-3.4); Lymphocytes % (auto) 6.2 %; Mean Corpuscular Hemoglobin 30.6 pg (25-34); Mean Corpuscular Hgb Conc 33.1 g/dL (32-36); Mean Corpuscular Volume 92.6 fL (80-100); Mean Platelet Volume 9.6 fL (7.4-10.4); Monocytes # (auto) 0.66 K/uL (0.11-0.59); Monocytes % (auto) 8.8 %; Neutrophils # (auto) 6.31 K/uL (1.4-6.5); Neutrophils % (auto) 84.6 %; Platelet Count 400 K/uL (130-400); RDW Coefficient of Variation 13.2 % (11.5-14.5); Red Blood Count 4.31 M/uL (4.2-5.4); White Blood Count 7.46 K/uL (4.8-10.8)
--- NOTE | 2021-05-29 13:45 | XRay Report ---
XR chest 1V portable CLINICAL HISTORY: SEPSIS. Evaluate cardiopulmonary status COMPARISON STUDY: 05/14/2021 TECHNIQUE: 1 view of the chest FINDINGS: Single frontal view of the chest demonstrates the cardiomediastinal silhouette to be within normal li mits. There is hyperinflation of the lungs with attenuation of the pulmonary vasculature peripherally characteristic of underlying chronic obstructive pulmonary disease. Has been interval development of patchy interstitial and alveolar opacities in the left lung base characteristic of early pneumonia. The remainder of the lungs are clear. There is no evidence for pleural effusion. There is no evidence for vascular congestion. There is no acute osseous pathology. IMPRESSION: COPD with interval development of patchy interstitial and alveolar opacities at the left lung base characteristic of early pneumonia. ACT 112: Negative or not required by law. Electronically signed by: Taurus Duron M.D. 05/29/2021 1:43 PM
[2021-05-29 13:54] LABS: INR 1.1 (0.9-1.1); Partial Thromboplastin Ratio 1.2; Partial Thromboplastin Time 31.9 Seconds (21.0-31.0); Prothrombin Time 10.8 Seconds (9.0-12.0)
[2021-05-29] MEDS ORDERED: ALBUT/IPRATROP 3MG/0.5MG NEB 3 ML VIAL NEB STA (14:04)
[2021-05-29] MEDS ORDERED: dexAMETHasone**PF** 10 MG/ML VIAL IV ONE (14:04)
[2021-05-29 14:12] LABS: Alanine Aminotransferase 60 U/L (7-52); Albumin Globulin Ratio 1.2 (0.9-2); Albumin Level 3.8 gm/dl (3.4-5.0); Alkaline Phosphatase 72 U/L (34-104); Anion Gap 14 (3-11); Aspartate Aminotransferase 84 U/L (13-39); Bilirubin,Total 0.8 mg/dl (0.2-1.0); Blood Urea Nitrogen 17 mg/dl (6-23); C Reactive Protein 16.82 mg/dl (0-0.5); Calcium 8.9 mg/dl (8.5-10.1); Carbon Dioxide 25 mmol/L (21-32); Chloride 96 mmol/L (98-107); Est GFR (African American) 111.4 ml/min; Est GFR (Non-African American) 96.1 ml/min; Globulin 3.3 gm/dl (2.5-4.0); Glucose 100 mg/dl (70-99(Fasting)); Magnesium 2.1 mg/dl (1.7-2.4); Potassium 3.9 mmol/L (3.5-5.1); Sodium 135 mmol/L (136-145); Total Protein 7.1 gm/dl (6.0-8.3)
--- NOTE | 2021-05-29 18:04 | History & Physical Report ---
Date of Service May 29, 2021 Assessment & Plan (1) COVID-19: Plan: Unvaccinated First day of symptoms: May First tested positive: Tested yesterday and today Dexamethasone 6mg IV BID started 05/29 - increased dosing to cover for COPD exacerbation given improvement with nebulizers Outside time window for remdesivir Does not meet oxygen requirement criteria for baricitinib on admission CRP 16.82 on admission Procalcitonin 0.19 (2) Acute and chronic respiratory failure with hypoxia: Plan: 2LPM O2 at baseline Aim O2 sats > 88% in setting of severe COPD (3) COPD (chronic obstructive pulmonary disease): Plan: No wheezing on exam but subjective improvement with nebulizers therefore will utilize increased dexamethasone dosing and duoneb QID + PRN Continue her usual maintenance Trelegy Ellipta or hospital formulary equivalent (4) Severe malnutrition: Plan: Boost drinks ordered (5) Acid reflux: Plan: Monitor for symptoms especially while on dexamethasone. Will defer treatment cu rrently. (6) Hypertension: Plan: Continue lisinopril 2.5mg PO daily and spironolactone 25mg PO x3/wk (7) Coronary artery disease: Plan: ASA, lisinopril, atorvastatin Plan: VTE Prophyalxis - given low weight and only minimally elevated d-dimer will utilize usual 40mg Lovenox SQ daily dosing Diet - heart healthy, consider liberalizing if poor oral intake Disposition - admit to med/surg, guarded prognosis given risk factors and low threshold to move to telemetry if deteriorating Admission and Anticipated Discharge Date Admission Date: May 29, 2020 History of Present Illness Chief Complaint: Hypoxia, shortness of breath Primary Care Provider: Parrish Hadley Madi Romo is a 60 year old female who presents to the ER with hypoxia. She was advised to come to the ER by her PCP due to O2 sats 83% on her usual 2LPM O2. She has been sick with COVID-like symptoms since May 21. Symptoms include fatigue, loss of appetite, loss of taste, loss of smell, shortness of breath, cough and mild diarrhea. She is unvaccinated. In the ER she is currently maintaining O2 sats > 88% on 3LPM O2. SARS-COV-2 PCR positive. CXR concerning for interval development of patchy interstitial and alveolar opacities. Procalcitonin negative. She was given a duoneb treatment which she reports helped with her shortness of breath. Requests daughter and are updated: daughter Hannah) [phone]. Updated her daughter only on admission. Allergies Allergy/AdvReac Type Severity Reaction Status Date / Time Bactrim Allergy Severe THROAT AND Verified 02/14/17 00:52 EARS SWELL bupropion [From Wellbutrin] Allergy Severe Unknown Verified 05/29/21 13:57 sulfamethoxazole Allergy Severe THROAT AND Verified 05/29/21 13:57 EARS SWELL trimethoprim Allergy Severe THROAT AND Verified 05/29/21 13:57 EARS SWELL codeine AdvReac Intermediate STOMACH Verified 05/29/21 13:57 CRAMPS, "KNOCKS ME OUT FOR DAYS" Home Medications Medication Instructions Recorded Confirmed Type alprazolam 0.25 mg tablet 0.25 mg PO DAILY PRN 03/14/19 05/29/21 History atorvastatin 40 mg tablet 40 mg PO HS 03/14/19 05/29/21 History lisinopril 2.5 mg tablet 2.5 mg PO QAM 03/14/19 05/29/21 History aspirin 81 mg tablet,delayed 81 mg PO Q2D 04/25/19 05/29/21 History release (Adult Low Dose Aspirin) escitalopram oxalate 20 mg tablet 20 mg PO HS 02/04/20 05/29/21 History ipratropium 0.5 mg-albuterol 3 mg 3 ml INHALATION QID PRN #180 ml 09/13/20 05/29/21 Rx (2.5 mg base)/3 mL nebulization soln ipratropium 20 mcg-albuterol 100 1 puff INHALATION QID PRN #4 g 09/13/20 05/29/21 Rx mcg/actuation mist for inhalation (Combivent Respimat) spironolactone 25 mg tablet 25 mg PO 3XWK 02/02/21 05/29/21 History (Aldactone) azithromycin 250 mg tablet 250 mg PO MOWEFR #36 tab 02/11/21 05/29/21 Rx fluticasone fur. 100 mcg-umeclid 1 inh INHALATION QAM #60 ea 02/11/21 05/29/21 Rx 62.5 mcg-vilant 25 mcg inhalat.powder (Trelegy Ellipta) cholecalciferol (vitamin D3) 25 25 mcg PO DAILY 03/26/21 05/29/21 History mcg (1,000 unit) capsule multivitamin (Multiple Vitamins) 1 tab PO DAILY 03/26/21 05/29/21 History buspirone 5 mg tablet 5 mg PO TID 05/29/21 05/29/21 History Past Med/Surg History Medical History (Updated 05/30/21 @ 00:07 by Joe Fernandes) Abdominal pain Acid reflux Bronchitis Colitis COPD (chronic obstructive pulmonary disease) Coronary artery disease Elevated WBC count Emphysema of lung Heart disease Hypertension Myocardial infarct Nausea Pneumonia Surgical History History of appendectomy History of hysterectomy History of tonsillectomy Stented coronary artery Social History Smoking Status: Former smoker Tobacco Type: Cigarettes Cigarettes Per Day: 20; Second Hand Exposure: Yes; Hx Alcohol Use: Yes Hx Substance Use: No Preferred Language: [place]i Communication Ability: Effective Secretary Office Clerk Required: No Beliefs That Will Affect Care: None Current Living Situation: Spouse Current Living Situation Comment: Other Information That Helps Us Care for You: No Feels Safe at Home: Yes Assistive Devices: Oxygen - Continuous Review of Systems Review of Systems: All systems reviewed & are unremarkable except as noted in HPI & below Physical Exam Constitutional: well developed, + cachectic and + frail appearing; + not well nourished and no acute distress Eyes: + anicteric sclerae; normal pupil size ENMT: Mouth: + dry oral mucous membranes Neck: trachea midline, no thyromegaly Respiratory: + uses accessory muscles and + prolonged expiratory phase; + abno rmal respiratory effort, no audible wheezes and no stridor Auscultation: + crackles (throughout posteriorly, clear anteriorly); no diminished lung sounds and no wheezes Cardiovascular: RRR, no murmur, no edema Vessels: posterior tibial pulses present, dorsalis pedis pulses present and radial pulses present Extremities: normal capillary refill; no calf tenderness and no pedal edema Gastrointestinal (Abdomen): Inspection/Auscultation: normal bowel sounds Percussion/Palpation: abdomen soft; abdomen nontender Musculoskeletal: no cyanosis or clubbing, extremities motor strength 5/5 Skin: no rashes, warm and dry Neurologic: moves all extremities and awake; not confused Psychiatric: A+Ox3, euthymic affect Results & Data Results & Data ([facility]) Vital Signs (Past 12 Hours) Vital Signs Temp Pulse Pulse Resp BP BP Pulse Ox 05/29/21 17:48 91 H 20 116/76 92 05/29/21 17:47 92 05/29/21 16:57 91 05/29/21 16:56 98 H 22 121/63 91 05/29/21 15:08 20 93 05/29/21 12:32 37.4 C 104 H 20 123/64 83 L Laboratory Results Abnormal lab results 05/29/21 05/29/21 05/29/21 Range/Units 13:23 13:23 13:23 Lymph # (Auto) 0.46 L (1.2-3.4) K/uL [place] # (Auto) 0.66 H (0.11-0.59) K/uL APTT 31.9 H (21.0-31.0) Seconds Sodium 135 L (136-145) mmol/L Chloride 96 L (98-107) mmol/L Anion Gap 14 H (3-11) BUN/Creatinine Ratio 27.0 H (10-20) Glucose 100 H (70-99(Fasting)) mg/dl AST 84 H (13-39) U/L ALT 60 H (7-52) U/L C-Reactive Protein 16.82 H (0-0.5) mg/dl SARS-CoV-2, RNA, NAAT (NEGATIVE) 05/29/21 Range/Units 17:40 Lymph # (Auto) (1.2-3.4) K/uL [place] # (Auto) (0.11-0.59) K/uL APTT (21.0-31.0) Seconds Sodium (136-145) mmol/L Chloride (98-107) mmol/L Anion Gap (3-11) BUN/Creatinine Ratio (10-20) Glucose (70-99(Fasting)) mg/dl AST (13-39) U/L ALT (7-52) U/L C-Reactive Protein (0-0.5) mg/dl SARS-CoV-2, RNA, NAAT POSITIVE A* (NEGATIVE) Diagnostic Findings XR chest 1V portable CLINICAL HISTORY: SEPSIS. Evaluate cardiopulmonary status COMPARISON STUDY: 05/14/2021 TECHNIQUE: 1 view of the chest FINDINGS: Single frontal view of the chest demonstrates the cardiomediastinal silhouette to be within normal limits. There is hyperinflation of the lungs with attenuation of the pulmonary vasculature peripherally characteristic of unde rlying chronic obstructive pulmonary disease. Has been interval development of patchy interstitial and alveolar opacities in the left lung base characteristic of early pneumonia. The remainder of the lungs are clear. There is no evidence for pleural effusion. There is no evidence for vascular congestion. There is no acute osseous pathology. IMPRESSION: COPD with interval development of patchy interstitial and alveolar opacities at the left lung base characteristic of early pneumonia. Medications Administered ER medications given: Dexamethasone 6mg IV Cefepime 200mg IV Duoneb 3ml NEB NSS 1L bolus ECG Indication: SOB/dyspnea Rate (beats per minute): 93 Rhythm: normal sinus Findings: + other (right atrial enlargement) and + nonspecific-ST abn Comparison ECG Date: from (May 14, 2021) Change: no significant change Code Status & VTE Plan Code Status DNR/DNI VTE Prophylaxis Plan VTE Prophylaxis will be ordered: Yes PG Care Time/CCT Total # of Minutes Spent Total Time Spent with Patient: Total time spent is greater than 50% in coordination of care (as documented) at patient's floor/unit and/or counseling patient: Coding Level of Care Code 43301 Initial Inpt Care Lvl 3 Diagnoses COVID-19 U07.1 COPD (chronic obstructive pulmonary disease) J44.9 COPD type: unspecified COPD Acute and chronic respiratory failure with hypoxia J96.21 Severe malnutrition E43 Acid reflux K21.9 Esophagitis presence: esophagitis presence not specified Hypertension I10 Hypertension type: essential hypertension Coronary artery disease I25.10 Associated angina: without angina Coronary Disease-Associated Artery/Lesion type: [place] artery [place] vs. transplanted heart: [place] heart (1) Coronary artery disease Associated angina: without angina Coronary Disease-Associated Artery/Lesion type: [place] artery [place] vs. transplanted heart: [place] heart Qualified Code(s): I25.10 - Atherosclerotic heart disease of [place] coronary artery without angina pectoris (2) COPD (chronic obstructive pulmonary disease) COPD type: unspecified COPD Qualified Code(s): J44.9 - Chronic obstructive pulmonary disease, unspecified (3) Acid reflux Esophagitis presence: esophagitis presence not specified Qualified Code(s): K21.9 - Gastro-esophageal reflux disease without esophagitis (4) Hypertension Hypertension type: essential hypertension Qualified Code(s): I10 - Essential (primary) hypertension
[2021-05-29] MEDS ORDERED: POLYETHYLENE (MIRALAX) 17 GM PACK PO PRN (20:59)
[2021-05-29] MEDS ORDERED: ONDANSETRON INJ 2 MG/ML 2 ML VIAL IV PRN (20:59)
[2021-05-29] MEDS ORDERED: ALBUT/IPRATROP 3MG/0.5MG NEB 3 ML VIAL INH PRN (20:59)
[2021-05-29] MEDS ORDERED: ALPRAZolam 0.25 MG TABLET PO PRN (20:59)
[2021-05-29] MEDS ORDERED: ACETAMINOPHEN 325 MG TAB PO PRN (20:59)
[2021-05-29] MEDS ORDERED: IPRATROPIUM BROMIDE/ALBUTEROL respimat INH INH PRN (20:59)
[2021-05-29] MEDS ORDERED: Albuterol HFA 8 GM Inhaler (Combivent Respimat P&T Subs) INH PRN (21:28)
[2021-05-29] MEDS ORDERED: Ipratropium HFA Inhaler (Combivent Respimat P&T Subs) INH PRN (21:28)
[2021-05-29] MEDS: ALBUT/IPRATROP 3MG/0.5MG NEB 3 ML VIAL NEB SCH (21:36)
[2021-05-29] MEDS: ASPIRIN 81 MG ECTAB PO SCH (22:22)
[2021-05-29] MEDS: busPIRone 5 MG TAB PO SCH (22:22)
[2021-05-29] MEDS: ATORVASTATIN 40 MG TAB PO SCH (22:22)
[2021-05-29] MEDS: ESCITALOPRAM OXALATE 20 MG TAB PO SCH (22:22)
[2021-05-29 22:55] LABS: D Dimer 790 ug/L FEU (0-500)
[2021-05-29] MEDS: ENOXAPARIN INJ 40 MG/0.4 ML SYR SQ SCH (23:48)
[2021-05-30 06:55] LABS: Albumin Globulin Ratio 1.2 (0.9-2); Albumin Level 3.4 gm/dl (3.4-5.0); BUN Creatinine Ratio 27.3 (10-20); Bilirubin,Total 0.6 mg/dl (0.2-1.0); Calcium 8.5 mg/dl (8.5-10.1); Creatinine Clr Calc Pharmacy 77.7 ml/min; Est GFR (African American) 116.5 ml/min; Est GFR (Non-African American) 100.5 ml/min; Globulin 2.8 gm/dl (2.5-4.0); Potassium 3.9 mmol/L (3.5-5.1); Total Protein 6.2 gm/dl (6.0-8.3)
[2021-05-30] MEDS: ALBUT/IPRATROP 3MG/0.5MG NEB 3 ML VIAL NEB SCH ×4 (07:25→19:48)
--- NOTE | 2021-05-30 08:02 | Hospitalist Progress Note ---
Date of Service May 30, 2021 Assessment & Plan (1) COVID-19: Plan: Patient is a 60-year-old female with a past medical history of dyslipidemia, former tobacco abuse in remission, chronic respiratory failure with hypoxia, emphysema, hypertension, CAD with history of [place], and COPD who is unvaccinated and presents with hypoxia to the 80s and who is COVID-positive on approximately day 9 of illness. Acute hypoxic respiratory failure 2/2 Covid pneumonia Covid positive, positive COVID test 05/28 and 05/29 First day of symptoms: 05/21/2021 Vaccination status: Unvaccinated Baseline kidney function: Normal Admitting kidney function: 0.55 AST/ALT: 86/72, slightly elevated. History of mild elevations, last normal 05/14/2021 CXR: COPD with interval development of patchy interstitial and alveolar opacities at the left lung base characteristic of early pneumonia. CRP: 16.82 Procalcitonin: 0.19, normal Continue dexamethasone x10-day course Remdesivir: Deferred, patient with mild transaminitis and is at day 910 of illness Baricitinib: Not indicated at this time, not requiring high flow Patient initially placed on Decadron 6 mg twice daily rather than daily due to comorbid COVID and COPD with exacerbation, reasonable to continue time 72 hours and then decrease to daily pending clinical progression. (2) Acute and chronic respiratory failure with hypoxia: Plan: 2LPM O2 at baseline Aim O2 sats > 88% in setting of severe COPD (3) COPD (chronic obstructive pulmonary disease): Plan: - No wheezing on exam but subjective improvement with nebulizers therefore will utilize increased dexamethasone dosing and duoneb QID + PRN - Home trelegy converted to formulary equiv - Continue Umeclidinium/Vilanterol 1puff daily - Continue Ipratropium QIDR PRN (4) Severe malnutrition: Plan: - Continue Boost (5) Acid reflux: Plan: - Monitor for symptoms especially while on dexamethasone. -Famotidine twice daily IV (6) Hypertension: Plan: Continue lisinopril 2.5 mg p.o. daily Continue spironolactone 25 mg p.o. 3 times per week Adequate blood pressure control at this time (7) Coronary artery disease: Plan: Continue aspirin Lisinopril as above Continue atorvastatin, hold if uptrending transaminitis TTE 03/2021: Normal biventricular systolic function, mild to moderate aortic regurgitation, no right heart strain, EF 55-60% with grade 1 diastolic dysfunction Plan: VTE Prophyalxis - given low weight and only minimally elevated d-dimer will utilize usual 40mg Lovenox SQ daily dosing Diet - heart healthy, consider liberalizing if poor oral intake Disposition - admit to med/surg, guarded prognosis given risk factors and low threshold to move to telemetry if deteriorating Admission and Anticipated Discharge Date Admission Date: May 29, 2021 Subjective Patient is seen at the bedside. She denies shortness of breath, difficulty breathing at time of bedside assessment. Denies nausea, vomiting, diarrhea, constipation has had urinary retention reported by nurses that she reports she has not had this before. Denies past history of retention, incontinence, difficulty urinating. No abdominal pain, no flank pain. No fever/chills. Review of Systems Review of Systems: All systems reviewed & are unremarkable except as noted in Subjective Physical Exam Physical Exam: General: A&Ox3. Frail, appears chronically ill but nontoxic. HEENT: Atraumatic, normocephalic. Vision and hearing grossly intact. Pulm: Bibasilar crackles, moderate air movement no overt rales. Symmetrical chest rise. No increase in work of breathing. No respiratory distress. Cardiac: RRR, -mrg. Radial pulses intact and symmetrical. Abdominal: Nontender, nondistended, soft. BS present. Extremities: Warm, dry. Ankle dorsiflexion/plantar flexion and forensic examiner strength grossly 5/5. Results & Data Results & Data ([facility]) Vital Signs (Past 12 Hours) Vital Signs Temp Pulse Resp BP BP Pulse Ox 05/30/21 07:25 84 18 91 05/29/21 23:05 36.4 C L 80 20 128/68 91 05/29/21 22:30 85 26 H 133/72 90 05/29/21 21:39 72 16 95 05/29/21 21:20 37 C 74 16 117/80 93 PG Care Time/CCT Total # of Minutes Spent Total Time Spent with Patient: Total time spent is greater than 50% in coordination of care (as documented) at patient's floor/unit and/or counseling patient: Coding Level of Care Code 20127 Subseq Hosp Care Lvl 2 Diagnoses COVID-19 U07.1 Acute and chronic respiratory failure with hypoxia J96.21 COPD (chronic obstructive pulmonary disease) J44.9 COPD type: unspecified COPD Severe malnutrition E43 Acid reflux K21.9 Esophagitis presence: esophagitis presence not specified Hypertension I10 Hypertension type: essential hypertension Coronary artery disease I25.10 Associated angina: without angina Coronary Disease-Associated Artery/Lesion type: [place] artery [place] vs. transplanted heart: [place] heart (1) Coronary artery disease Associated angina: without angina Coronary Disease-Associated Artery/Lesion type: [place] artery [place] vs. transplanted heart: [place] heart Qualified Code(s): I25.10 - Atherosclerotic heart disease of [place] coronary artery without angina pectoris (2) COPD (chronic obstructive pulmonary disease) COPD type: unspecified COPD Qualified Code(s): J44.9 - Chronic obstructive pulmonary disease, unspecified (3) Acid reflux Esophagitis presence: esophagitis presence not specified Qualified Code(s): K21.9 - Gastro-esophageal reflux disease without esophagitis (4) Hypertension Hypertension type: essential hypertension Qualified Code(s): I10 - Essential (primary) hypertension
[2021-05-30] MEDS: busPIRone 5 MG TAB PO SCH ×3 (08:28→20:45)
[2021-05-30] MEDS: CHOLECALCIFEROL 1,000 UNITS 25 MCG TAB PO SCH (08:28)
[2021-05-30] MEDS: AZITHROMYCIN 250 MG TAB PO SCH (08:28)
[2021-05-30] MEDS: lisinopril 2.5 MG TAB PO SCH (08:28)
[2021-05-30] MEDS: MULTIVITAMIN TAB PO SCH (08:28)
[2021-05-30] MEDS: FLUTICASONE FUROATE 100MCG 14 PUFFS/INHALER INH SCH (08:29)
[2021-05-30] MEDS: UMECLIDINIUM/VILANTEROL 62.5/25MCG 7 PUFFS/INHALER INH SCH (08:29)
[2021-05-30] MEDS: dexAMETHasone 6 MG in SYRINGE 0 ML IV SCH ×2 (08:46→20:46)
[2021-05-30] MEDS ORDERED: NON-FORMULARY MEDICATION (Fluticasone-Umeclidin-Vilanter [Trelegy Ellipta] 100-62.5-25 mcg INH SCH (09:00)
[2021-05-30] MEDS ORDERED: dexAMETHasone 6 MG in SYRINGE 0 ML IV SCH (09:00)
--- NOTE | 2021-05-30 19:12 | Electrocardiogram Report ---
Test Reason : Blood Pressure : / mmHG Vent. Rate : 093 BPM Atrial Rate : 093 BPM P-R Int : 142 ms QRS Dur : 070 ms QT Int : 394 ms P-R-T Axes : 090 083 083 degrees QTc Int : 489 ms Poor data quality, interpretation may be adversely affected Normal sinus rhythm Right atrial enlargement Nonspecific ST abnormality Prolonged QT Abnormal ECG When compared with ECG of 14-MAY-2021 23:01, QT has lengthened Confirmed by Tripp Kamara ([id number]) on 05/30/2021 7:11:58 PM Referred By: REFERRED SELF Confirmed By:Tripp Kamara
[2021-05-30] MEDS: ATORVASTATIN 40 MG TAB PO SCH (20:45)
[2021-05-30] MEDS: ESCITALOPRAM OXALATE 20 MG TAB PO SCH (20:46)
[2021-05-30] MEDS: ENOXAPARIN INJ 40 MG/0.4 ML SYR SQ SCH (20:46)
[2021-05-31 06:40] LABS: Hematocrit (blood only) 35.5 % (37-47); Hemoglobin 11.6 g/dL (12.0-16.0); Mean Corpuscular Hemoglobin 30.4 pg (25-34); Mean Corpuscular Hgb Conc 32.7 g/dL (32-36); Mean Corpuscular Volume 93.2 fL (80-100); Mean Platelet Volume 9.5 fL (7.4-10.4); Platelet Count 520 K/uL (130-400); Red Blood Count 3.81 M/uL (4.2-5.4); White Blood Count 9.98 K/uL (4.8-10.8)
[2021-05-31 06:57] LABS: Albumin Globulin Ratio 1.2 (0.9-2); Albumin Level 3.4 gm/dl (3.4-5.0); BUN Creatinine Ratio 29.5 (10-20); Bilirubin,Total 0.6 mg/dl (0.2-1.0); Calcium 8.6 mg/dl (8.5-10.1); Est GFR (African American) 112.6 ml/min; Est GFR (Non-African American) 97.2 ml/min; Globulin 2.9 gm/dl (2.5-4.0); Potassium 3.9 mmol/L (3.5-5.1); Total Protein 6.3 gm/dl (6.0-8.3)
[2021-05-31 07:18] LABS: Basophils # (auto) 0.02 K/uL (0-0.2); Basophils % (auto) 0.2 %; Immature Granulocytes # (auto) 0.02 K/uL (0.00-0.02); Immature Granulocytes % (auto) 0.2 %; Lymphocytes # (auto) 0.76 K/uL (1.2-3.4); Lymphocytes % (auto) 7.6 %; Monocytes # (auto) 0.61 K/uL (0.11-0.59); Monocytes % (auto) 6.1 %; Neutrophils # (auto) 8.57 K/uL (1.4-6.5); Neutrophils % (auto) 85.9 %
[2021-05-31] MEDS: ALBUT/IPRATROP 3MG/0.5MG NEB 3 ML VIAL NEB SCH (08:37)
[2021-05-31] MEDS: UMECLIDINIUM/VILANTEROL 62.5/25MCG 7 PUFFS/INHALER INH SCH (08:54)
[2021-05-31] MEDS: FLUTICASONE FUROATE 100MCG 14 PUFFS/INHALER INH SCH (08:54)
[2021-05-31] MEDS: busPIRone 5 MG TAB PO SCH ×3 (08:55→20:55)
[2021-05-31] MEDS: MULTIVITAMIN TAB PO SCH (08:55)
[2021-05-31] MEDS: lisinopril 2.5 MG TAB PO SCH (08:55)
[2021-05-31] MEDS: CHOLECALCIFEROL 1,000 UNITS 25 MCG TAB PO SCH (08:55)
[2021-05-31] MEDS: dexAMETHasone 6 MG in SYRINGE 0 ML IV SCH ×2 (08:55→20:55)
[2021-05-31] MEDS ORDERED: ALBUT/IPRATROP 3MG/0.5MG NEB 3 ML VIAL NEB PRN (10:15)
[2021-05-31] MEDS: ALBUTEROL HFA 8 GM INHALER INH SCH ×3 (11:37→20:17)
--- NOTE | 2021-05-31 16:32 | Hospitalist Progress Note ---
Date of Service May 31, 2021 Assessment & Plan (1) COVID-19: Plan: acute on chronic hypoxic respiratory failure due to Covid-19 pneumonia positive COVID test 05/28 and 05/29 first day of symptoms: 05/21/2021, thus ~day 10 of illness Vaccination status: Unvaccinated Day #3 of IV dexamethasone - 6mg BID being employed due to concomitant COPD flare. Has mild transaminitis - follow/trend. Remdesivir deferred at admission - >7 days at time of admission thus benefits felt to not be there to use. Baricitinib/tozilizumab not indicated at this time. Cont incentive. Cont flutter. Schedule albuterol MDI QID. Cont chronic azithromycin. (2) Acute and chronic respiratory failure with hypoxia: Plan: acute component - COVID-19 pneumonia. chronic - on 2 L NC O2 2nd COPD. (3) COPD (chronic obstructive pulmonary disease): Plan: COPD exacerbation 2nd to COVID infection. Steroids. Albuterol. Home inhalers. Pulmonary toilet. (4) Severe malnutrition: Plan: Continue Boost Underweight does patient have underlying malignancy?? is malnutrition/failure to thrive 2nd to end-stage COPD?? (5) Acid reflux: Plan: cont H2 josesito (6) Hypertension: Plan: Continue lisinopril 2.5 mg p.o. daily (7) Coronary artery disease: Plan: Continue aspirin Cont Lisinopril HOLDING atorvastatin 2nd to #8 no ischemic symptoms (8) Transaminitis: Plan: 2nd to COVID-19 infection? trend (9) DVT prophylaxis: Plan: lovenox daily (10) Rash: Plan: ?HSV on chin zovirax QID Plan: updated pt's daughter Heidi by phone this evening Admission and Anticipated Discharge Date Admission Date: May 29, 2021 Subjective mild cough no dyspnea at rest no orthopnea she confirms her home O2 requirement is 2 L NC no chest pain appetite fair does report h/o diverticulitis in 2019 and intermittent diarrhea at home has lost weight in the last few months Review of Systems Review of Systems: gen - fatigue; no fever cv - no pleuritic pain; no orthopnea pulm - mild wheezing GI - no abd pain unless someone is palpating the abdomen; no nausea skin - uncomfortable rash on chin - has h/o HSV fever blisters Physical Exam Physical Exam: gen - thin, cachectic, no distress mouth - MMM, no thrush neck - no JVD heart - RRR, s1 s2 lungs - decent airation, scattered crackles abd - soft ND BS+; minimal tenderness lower quadrants ext - no edema, pulses 2+ b/l psych - a/o x 3 skin - herpetic rash on chin? Results & Data Results & Data ([facility]) Vital Signs (Past 12 Hours) Vital Signs Temp Pulse Resp BP Pulse Ox 05/31/21 14:08 94 H 20 89 L 05/31/21 11:39 96 H 22 87 L 05/31/21 08:16 36.9 C 90 16 143/79 H 93 PG Care Time/CCT Total # of Minutes Spent Total Time Spent with Patient: Total time spent is greater than 50% in coordination of care (as documented) at patient's floor/unit and/or counseling patient: Coding Level of Care Code 94529 Subseq Hosp Care Lvl 2 Diagnoses COVID-19 U07.1 Acute and chronic respiratory failure with hypoxia J96.21 COPD (chronic obstructive pulmonary disease) J44.9 COPD type: unspecified COPD Severe malnutrition E43 Acid reflux K21.9 Esophagitis presence: esophagitis presence not specified Hypertension I10 Hypertension type: essential hypertension Coronary artery disease I25.10 Associated angina: without angina Coronary Disease-Associated Artery/Lesion type: [place] artery [place] vs. transplanted heart: [place] heart Transaminitis R74.01 DVT prophylaxis Z29.9 Rash R21 (1) Coronary artery disease Associated angina: without angina Coronary Disease-Associated Artery/Lesion type: [place] artery [place] vs. transplanted heart: [place] heart Qualified Code(s): I25.10 - Atherosclerotic heart disease of [place] coronary artery without angina pectoris (2) COPD (chronic obstructive pulmonary disease) COPD type: unspecified COPD Qualified Code(s): J44.9 - Chronic obstructive pulmonary disease, unspecified (3) Acid reflux Esophagitis presence: esophagitis presence not specified Qualified Code(s): K21.9 - Gastro-esophageal reflux disease without esophagitis (4) Hypertension Hypertension type: essential hypertension Qualified Code(s): I10 - Essential (primary) hypertension
[2021-05-31] MEDS: ACYCLOVIR 5% OINT 15 GM TUBE EXT SCH ×2 (18:30→20:54)
[2021-05-31] MEDS: ENOXAPARIN INJ 40 MG/0.4 ML SYR SQ SCH (20:55)
[2021-05-31] MEDS: ASPIRIN 81 MG ECTAB PO SCH (20:55)
[2021-05-31] MEDS: ESCITALOPRAM OXALATE 20 MG TAB PO SCH (20:55)
[2021-06-01 07:18] LABS: BUN Creatinine Ratio 34.9 (10-20); C Reactive Protein 3.15 mg/dl (0-0.5); Calcium 8.6 mg/dl (8.5-10.1); Creatinine Clr Calc Pharmacy 67.8 ml/min; Est GFR (African American) 111.4 ml/min; Est GFR (Non-African American) 96.1 ml/min; Potassium 4.4 mmol/L (3.5-5.1)
[2021-06-01] MEDS: ALBUTEROL HFA 8 GM INHALER INH SCH ×4 (07:39→19:57)
[2021-06-01] MEDS: dexAMETHasone 6 MG in SYRINGE 0 ML IV SCH ×2 (08:38→20:34)
[2021-06-01] MEDS: FLUTICASONE FUROATE 100MCG 14 PUFFS/INHALER INH SCH (08:39)
[2021-06-01] MEDS: UMECLIDINIUM/VILANTEROL 62.5/25MCG 7 PUFFS/INHALER INH SCH (08:39)
[2021-06-01] MEDS: MULTIVITAMIN TAB PO SCH (08:40)
[2021-06-01] MEDS: CHOLECALCIFEROL 1,000 UNITS 25 MCG TAB PO SCH (08:40)
[2021-06-01] MEDS: busPIRone 5 MG TAB PO SCH ×3 (08:40→20:33)
[2021-06-01] MEDS: lisinopril 2.5 MG TAB PO SCH (08:40)
[2021-06-01] MEDS: ACYCLOVIR 5% OINT 15 GM TUBE EXT SCH ×4 (08:40→20:33)
--- NOTE | 2021-06-01 16:06 | Hospitalist Progress Note ---
Date of Service June 01, 2021 Assessment & Plan (1) COVID-19: Plan: slowly improving. acute on chronic hypoxic respiratory failure due to Covid-19 pneumonia positive COVID test 05/28 and 05/29 first day of symptoms: 05/21/2021, thus ~day 11 of illness Vaccination status: Unvaccinated Day #4 of IV dexamethasone - 6mg BID being employed due to concomitant COPD flare. Has mild transaminitis - follow/trend. Remdesivir deferred at admission - >7 days at time of admission thus benefits felt to not be there to use. Baricitinib/tozilizumab not indicated at this time. Cont incentive. Cont flutter. Cont albuterol MDI QID. Cont chronic azithromycin. (2) Acute and chronic respiratory failure with hypoxia: Plan: acute component - COVID-19 pneumonia with COPD flare. chronic - on 2 L NC O2 2nd COPD. (3) COPD (chronic obstructive pulmonary disease): Plan: COPD exacerbation 2nd to COVID infection. Steroids. Albuterol. Home inhalers. Pulmonary toilet. Slowly improving. NC O2 support (on 3 L currently; chronically on 2 L). (4) Severe malnutrition: Plan: Continue Boost Underweight does patient have underlying malignancy?? is malnutrition/failure to thrive 2nd to end-stage COPD?? needs w/u post-discharge (5) Acid reflux: Plan: cont H2 josesito (6) Hypertension: Plan: Continue lisinopril 2.5 mg p.o. daily (7) Coronary artery disease: Plan: Continue aspirin Cont Lisinopril HOLDING atorvastatin 2nd to #8 no ischemic symptoms (8) Transaminitis: Plan: 2nd to COVID-19 infection? trend (9) DVT prophylaxis: Plan: lovenox daily (10) Rash: Plan: ?HSV on chin zovirax QID rash is improved today Plan: updated pt's daughter Heidi by phone yesterday evening cont PT/OT Admission and Anticipated Discharge Date Admission Date: May 29, 2021 Subjective pt feels better today appetite today is improving finally she has a bit more energy sleeping better less cough still considerable DURAN with minimal activity, and o2 sats drop quickly with ambulation no new complaints Review of Systems Review of Systems: gen - no fevers gi - no pain, nausea, emesis cv - no orthopnea or pain pulm - no hemoptysis Physical Exam Physical Exam: gen - thin, cachectic, no distress mouth - MMM, no thrush but ?small ulcers posterior throat? neck - no JVD heart - RRR, s1 s2 lungs - crackles bases b/l, no distress, decreased BS bases abd - soft ND BS+ NT; no HSM ext - no edema, pulses 2+ b/l psych - a/o x 3 skin - herpetic rash on chin - improving Results & Data Results & Data ([facility]) Vital Signs (Past 12 Hours) Vital Signs Temp Pulse Resp BP Pulse Ox Pulse Ox 06/01/21 15:28 94 H 23 93 06/01/21 13:55 92 06/01/21 13:29 94 06/01/21 11:16 90 21 91 06/01/21 08:40 89 L 06/01/21 08:37 36.7 C 89 20 154/88 H 88 L 06/01/21 08:30 87 L 06/01/21 07:40 92 H 20 91 Laboratory Results Laboratory Results - last 24 hr 06/01/21 05:43 Estimat Average Glucose 123 Hemoglobin A1c 5.9 H PG Care Time/CCT Total # of Minutes Spent Total Time Spent with Patient: Total time spent is greater than 50% in coordination of care (as documented) at patient's floor/unit and/or counseling patient: Coding Level of Care Code 23772 Subseq Hosp Care Lvl 2 Diagnoses COVID-19 U07.1 Acute and chronic respiratory failure with hypoxia J96.21 COPD (chronic obstructive pulmonary disease) J44.9 COPD type: unspecified COPD Severe malnutrition E43 Acid reflux K21.9 Esophagitis presence: esophagitis presence not specified Hypertension I10 Hypertension type: essential hypertension Coronary artery disease I25.10 Associated angina: without angina Coronary Disease-Associated Artery/Lesion type: [place] artery [place] vs. transplanted heart: [place] heart Transaminitis R74.01 DVT prophylaxis Z29.9 Rash R21 (1) Coronary artery disease Associated angina: without angina Coronary Disease-Associated Artery/Lesion type: [place] artery [place] vs. transplanted heart: [place] heart Qualified Code(s): I25.10 - Atherosclerotic heart disease of [place] coronary artery without angina pectoris (2) COPD (chronic obstructive pulmonary disease) COPD type: unspecified COPD Qualified Code(s): J44.9 - Chronic obstructive pulmonary disease, unspecified (3) Acid reflux Esophagitis presence: esophagitis presence not specified Qualified Code(s): K21.9 - Gastro-esophageal reflux disease without esophagitis (4) Hypertension Hypertension type: essential hypertension Qualified Code(s): I10 - Essential (primary) hypertension
[2021-06-01] MEDS: ESCITALOPRAM OXALATE 20 MG TAB PO SCH (20:34)
[2021-06-01] MEDS: ENOXAPARIN INJ 40 MG/0.4 ML SYR SQ SCH (20:34)
[2021-06-01] MEDS: FAMOTIDINE 20 MG TAB PO SCH (20:50)
[2021-06-02 07:41] LABS: Estimated Average Glucose 123 mg/dl; Hemoglobin A1C 5.9 % (4.5-5.6)
[2021-06-02] MEDS: ALBUTEROL HFA 8 GM INHALER INH SCH ×4 (08:09→19:32)
[2021-06-02] MEDS: UMECLIDINIUM/VILANTEROL 62.5/25MCG 7 PUFFS/INHALER INH SCH (08:46)
[2021-06-02] MEDS: FLUTICASONE FUROATE 100MCG 14 PUFFS/INHALER INH SCH (08:46)
[2021-06-02] MEDS: FAMOTIDINE 20 MG TAB PO SCH ×2 (08:47→20:08)
[2021-06-02] MEDS: lisinopril 2.5 MG TAB PO SCH (08:47)
[2021-06-02] MEDS: CHOLECALCIFEROL 1,000 UNITS 25 MCG TAB PO SCH (08:47)
[2021-06-02] MEDS: AZITHROMYCIN 250 MG TAB PO SCH (08:48)
[2021-06-02] MEDS: MULTIVITAMIN TAB PO SCH (08:48)
[2021-06-02] MEDS: busPIRone 5 MG TAB PO SCH ×3 (08:48→20:08)
[2021-06-02] MEDS: ACYCLOVIR 5% OINT 15 GM TUBE EXT SCH ×4 (08:50→20:09)
[2021-06-02] MEDS: dexAMETHasone 6 MG in SYRINGE 0 ML IV SCH ×2 (08:50→20:10)
[2021-06-02] MEDS: ASPIRIN 81 MG ECTAB PO SCH (20:08)
[2021-06-02] MEDS: ESCITALOPRAM OXALATE 20 MG TAB PO SCH (20:08)
[2021-06-02] MEDS: ENOXAPARIN INJ 40 MG/0.4 ML SYR SQ SCH (20:09)
--- NOTE | 2021-06-02 21:15 | Hospitalist Progress Note ---
Date of Service June 02, 2021 Assessment & Plan (1) COVID-19: Plan: improving. best day she has had since admission. acute on chronic hypoxic respiratory failure due to Covid-19 pneumonia positive COVID test 05/28 and 05/29 first day of symptoms: 05/21/2021, thus ~day 12 of illness Vaccination status: Unvaccinated Day #5 of IV dexamethasone - 6mg BID being employed due to concomitant COPD flare. Has mild transaminitis - repeat ast/alt in am. Remdesivir deferred at admission - >7 days at time of admission thus benefits felt to not be there to use. Baricitinib/tozilizumab not indicated at this time. Cont incentive. Cont flutter. Cont albuterol MDI QID. Cont chronic azithromycin. (2) Acute and chronic respiratory failure with hypoxia: Plan: acute component - COVID-19 pneumonia with COPD flare. chronic - on 2 L NC O2 2nd COPD. (3) COPD (chronic obstructive pulmonary disease): Plan: COPD exacerbation 2nd to COVID infection. IMPROVED. Cont IV dexamethasone - probably can wean tomorrow. Albuterol. Home inhalers. Pulmonary toilet. NC O2 support (on 3 L currently; chronically on 2 L). (4) Severe malnutrition: Plan: Continue Boost Underweight does patient have underlying malignancy?? is malnutrition/failure to thrive 2nd to end-stage COPD?? needs w/u post-discharge (5) Acid reflux: Plan: cont H2 josesito (6) Hypertension: Plan: Continue lisinopril 2.5 mg p.o. daily (7) Coronary artery disease: Plan: Continue aspirin Cont Lisinopril Cont to HOLD atorvastatin 2nd to #8 no ischemic symptoms (8) Transaminitis: Plan: 2nd to COVID-19 infection? repeat ast/alt in am (9) DVT prophylaxis: Plan: lovenox daily (10) Rash: Plan: ?HSV on chin zovirax QID improving Plan: updated pt's daughter Heidi this week cont PT/OT progressing Admission and Anticipated Discharge Date Admission Date: May 29, 2021 Subjective patient feeling much better she has better appetite, improved energy, less cough no dyspnea at rest mild w/ activity she has noted that her O2 sats drop <90% quickly with moving about in the room sleeping decently no other new complaints Review of Systems Review of Systems: gen - no fevers cv - no orthopnea pulm - no sputum GI - no abd pain/N/V Physical Exam Physical Exam: gen - thin, cachectic, no distress; looks better today mouth - MMM neck - no JVD heart - RRR, s1 s2, no murmur lungs - crackles bases b/l, no distress, decreased BS bases; no wheezes abd - soft ND BS+ NT; no HSM ext - no edema, pulses 2+ b/l psych - a/o x 3 skin - herpetic rash on chin - again improving Results & Data Results & Data ([facility]) Vital Signs (Past 12 Hours) Vital Signs Temp Pulse Resp BP Pulse Ox Pulse Ox 06/02/21 20:11 36.9 C 88 16 155/87 H 90 06/02/21 19:43 36.9 C 98 H 18 115/77 99 06/02/21 19:33 92 H 20 90 06/02/21 15:53 84 20 95 06/02/21 15:39 36.7 C 85 18 145/86 H 92 06/02/21 10:22 96 H 18 93 06/02/21 09:35 93 PG Care Time/CCT Total # of Minutes Spent Total Time Spent with Patient: Total time spent is greater than 50% in coordination of care (as documented) at patient's floor/unit and/or counseling patient: Coding Level of Care Code 33226 Subseq Hosp Care Lvl 2 Diagnoses COVID-19 U07.1 Acute and chronic respiratory failure with hypoxia J96.21 COPD (chronic obstructive pulmonary disease) J44.9 COPD type: unspecified COPD Severe malnutrition E43 Acid reflux K21.9 Esophagitis presence: esophagitis presence not specified Hypertension I10 Hypertension type: essential hypertension Coronary artery disease I25.10 Associated angina: without angina Coronary Disease-Associated Artery/Lesion type: [place] artery [place] vs. transplanted heart: [place] heart Transaminitis R74.01 DVT prophylaxis Z29.9 Rash R21 (1) Coronary artery disease Associated angina: without angina Coronary Disease-Associated Artery/Lesion type: [place] artery [place] vs. transplanted heart: [place] heart Qualified Code(s): I25.10 - Atherosclerotic heart disease of [place] coronary artery without angina pectoris (2) COPD (chronic obstructive pulmonary disease) COPD type: unspecified COPD Qualified Code(s): J44.9 - Chronic obstructive pulmonary disease, unspecified (3) Acid reflux Esophagitis presence: esophagitis presence not specified Qualified Code(s): K21.9 - Gastro-esophageal reflux disease without esophagitis (4) Hypertension Hypertension type: essential hypertension Qualified Code(s): I10 - Essential (primary) hypertension
[2021-06-03] MEDS: ALBUTEROL HFA 8 GM INHALER INH SCH (07:48)
[2021-06-03] MEDS: ACYCLOVIR 5% OINT 15 GM TUBE EXT SCH ×4 (08:20→20:22)
[2021-06-03] MEDS: dexAMETHasone 6 MG in SYRINGE 0 ML IV SCH (08:21)
[2021-06-03] MEDS: CHOLECALCIFEROL 1,000 UNITS 25 MCG TAB PO SCH (08:21)
[2021-06-03] MEDS: busPIRone 5 MG TAB PO SCH ×3 (08:21→20:23)
[2021-06-03] MEDS: FLUTICASONE FUROATE 100MCG 14 PUFFS/INHALER INH SCH (08:22)
[2021-06-03] MEDS: FAMOTIDINE 20 MG TAB PO SCH ×2 (08:22→20:24)
[2021-06-03] MEDS: lisinopril 2.5 MG TAB PO SCH (08:22)
[2021-06-03] MEDS: MULTIVITAMIN TAB PO SCH (08:23)
[2021-06-03] MEDS: UMECLIDINIUM/VILANTEROL 62.5/25MCG 7 PUFFS/INHALER INH SCH (08:23)
[2021-06-03 08:56] LABS: Hematocrit (blood only) 39.5 % (37-47); Mean Corpuscular Hemoglobin 30.4 pg (25-34); Mean Corpuscular Hgb Conc 32.9 g/dL (32-36); Mean Corpuscular Volume 92.5 fL (80-100); Mean Platelet Volume 9.5 fL (7.4-10.4); Platelet Count 652 K/uL (130-400); RDW Standard Deviation 43.4 fL (36.4-46.3); Red Blood Count 4.27 M/uL (4.2-5.4); White Blood Count 12.79 K/uL (4.8-10.8)
[2021-06-03] MEDS ORDERED: ALBUTEROL HFA 8 GM INHALER INH PRN (09:33)
[2021-06-03 09:35] LABS: BUN Creatinine Ratio 43.5 (10-20); Creatinine Clr Calc Pharmacy 68.9 ml/min; Est GFR (Non-African American) 96.6 ml/min
[2021-06-03] MEDS: ENOXAPARIN INJ 40 MG/0.4 ML SYR SQ SCH (20:23)
[2021-06-03] MEDS: ESCITALOPRAM OXALATE 20 MG TAB PO SCH (20:23)
--- NOTE | 2021-06-03 23:43 | Hospitalist Progress Note ---
Date of Service June 03, 2021 Assessment & Plan (1) COVID-19: Plan: continues to improve. acute on chronic hypoxic respiratory failure due to Covid-19 pneumonia positive COVID test 05/28 and 05/29 first day of symptoms: 05/21/2021, thus ~day 13 of illness Vaccination status: Unvaccinated Day #6 of IV dexamethasone - currently 6mg BID; will cut to 6mg each day starting 06/04/21. Has mild transaminitis - ast/alt trending down nicely. Remdesivir deferred at admission - >7 days at time of admission thus benefits felt to not be there to use. Baricitinib/tozilizumab not indicated at this time. Cont incentive. Cont flutter. Cont albuterol MDI QID. Cont chronic azithromycin. (2) Acute and chronic respiratory failure with hypoxia: Plan: acute component - COVID-19 pneumonia with COPD flare. chronic - on 2 L NC O2 2nd COPD. (3) COPD (chronic obstructive pulmonary disease): Plan: COPD exacerbation 2nd to COVID infection. IMPROVED. Cont IV dexamethasone - wean from BID to qd dosing tomorrow. Albuterol. Home inhalers. Pulmonary toilet. NC O2 support (on 3 L currently; chronically on 2 L). (4) Severe malnutrition: Plan: Continue Boost Underweight does patient have underlying malignancy?? is malnutrition/failure to thrive 2nd to end-stage COPD?? needs w/u post-discharge (5) Acid reflux: Plan: cont H2 josesito (6) Hypertension: Plan: Continue lisinopril 2.5 mg p.o. daily (7) Coronary artery disease: Plan: Continue aspirin Cont Lisinopril Cont to HOLD atorvastatin 2nd to #8 - likely resume at discharge no ischemic symptoms (8) Transaminitis: Plan: 2nd to COVID-19 infection improving (9) DVT prophylaxis: Plan: lovenox daily (10) Rash: Plan: ?HSV on chin zovirax QID improving / crusting over Plan: updated pt's daughter Heidi again cont PT/OT progressing nicely Admission and Anticipated Discharge Date Admission Date: May 29, 2021 Subjective pt feeling better today eating better main complaint is dyspnea on exertion and she reports that her o2 sats dropped with walking with PT sore throat is improving moving bowels remains on 3 l NC O2 Review of Systems Review of Systems: gen - no fevers or chills CV - no orthopnea pulm - no sputum GI - no N/V/abd pain Physical Exam Physical Exam: gen - thin, cachectic, no distress; looking better each day mouth - MMM neck - no JVD heart - RRR, s1 s2, no murmur lungs - fine crackles bases b/l, no distress, no wheezes abd - soft ND BS+ NT; no HSM ext - no edema, pulses 2+ b/l psych - a/o x 3 skin - herpetic rash on chin - again improving Results & Data Results & Data ([facility]) Vital Signs (Past 12 Hours) Vital Signs Temp Pulse Resp BP Pulse Ox 06/03/21 21:19 36.6 C 73 18 121/75 94 06/03/21 14:44 36.7 C 80 16 133/80 95 Laboratory Results Laboratory Results - last 24 hr 06/03/21 06/03/21 08:38 08:38 WBC 12.79 H RBC 4.27 Hgb 13.0 Hct 39.5 MCV 92.5 MCH 30.4 MCHC 32.9 RDW Std Deviation 43.4 RDW Coeff of Luis 13.0 Plt Count 652 H MPV 9.5 Sodium 137 Potassium 4.0 Chloride 99 Carbon Dioxide 28 Anion Gap 10 BUN 27 H Creatinine 0.62 Est Cr Clr Drug Dosing 68.9 Est GFR ( Amer) 112.0 Est GFR (Non-Af Amer) 96.6 BUN/Creatinine Ratio 43.5 H Glucose 107 H Calcium 9.0 AST 30 ALT 57 H PG Care Time/CCT Total # of Minutes Spent Total Time Spent with Patient: Total time spent is greater than 50% in coordination of care (as documented) at patient's floor/unit and/or counseling patient: Coding Level of Care Code 59909 Subseq Hosp Care Lvl 2 Diagnoses COVID-19 U07.1 Acute and chronic respiratory failure with hypoxia J96.21 COPD (chronic obstructive pulmonary disease) J44.9 COPD type: unspecified COPD Severe malnutrition E43 Acid reflux K21.9 Esophagitis presence: esophagitis presence not specified Hypertension I10 Hypertension type: essential hypertension Coronary artery disease I25.10 Associated angina: without angina Coronary Disease-Associated Artery/Lesion type: [place] artery [place] vs. transplanted heart: [place] heart Transaminitis R74.01 DVT prophylaxis Z29.9 Rash R21 (1) Coronary artery disease Associated angina: without angina Coronary Disease-Associated Artery/Lesion type: [place] artery [place] vs. transplanted heart: [place] heart Qualified Code(s): I25.10 - Atherosclerotic heart disease of [place] coronary artery witho ut angina pectoris (2) COPD (chronic obstructive pulmonary disease) COPD type: unspecified COPD Qualified Code(s): J44.9 - Chronic obstructive pulmonary disease, unspecified (3) Acid reflux Esophagitis presence: esophagitis presence not specified Qualified Code(s): K21.9 - Gastro-esophageal reflux disease without esophagitis (4) Hypertension Hypertension type: essential hypertension Qualified Code(s): I10 - Essential (primary) hypertension
[2021-06-04] MEDS: FLUTICASONE FUROATE 100MCG 14 PUFFS/INHALER INH SCH (08:59)
[2021-06-04] MEDS: UMECLIDINIUM/VILANTEROL 62.5/25MCG 7 PUFFS/INHALER INH SCH (08:59)
[2021-06-04] MEDS: FAMOTIDINE 20 MG TAB PO SCH ×2 (09:00→20:28)
[2021-06-04] MEDS: busPIRone 5 MG TAB PO SCH ×3 (09:00→20:27)
[2021-06-04] MEDS: CHOLECALCIFEROL 1,000 UNITS 25 MCG TAB PO SCH (09:00)
[2021-06-04] MEDS: lisinopril 2.5 MG TAB PO SCH (09:00)
[2021-06-04] MEDS: ACYCLOVIR 5% OINT 15 GM TUBE EXT SCH ×4 (09:00→20:25)
[2021-06-04] MEDS: AZITHROMYCIN 250 MG TAB PO SCH (09:00)
[2021-06-04] MEDS: MULTIVITAMIN TAB PO SCH (09:00)
[2021-06-04] MEDS: dexAMETHasone 6 MG in SYRINGE 0 ML IV SCH (09:02)
[2021-06-04] MEDS: ENOXAPARIN INJ 40 MG/0.4 ML SYR SQ SCH (20:27)
[2021-06-04] MEDS: ESCITALOPRAM OXALATE 20 MG TAB PO SCH (20:27)
[2021-06-04] MEDS: ASPIRIN 81 MG ECTAB PO SCH (20:28)
--- NOTE | 2021-06-04 21:44 | Hospitalist Progress Note ---
Date of Service June 04, 2021 Assessment & Plan (1) COVID-19: Plan: improving/resolving. acute on chronic hypoxic respiratory failure due to Covid-19 pneumonia positive COVID test 05/28 and 05/29 first day of symptoms: 05/21/2021, thus ~day 14 of illness Vaccination status: Unvaccinated Day #7 of IV dexamethasone - was previously on 6mg BID but cut to daily dosing today Had mild transaminitis - AST yesterday had normalized; ALT only scantly high yesterday Remdesivir deferred at admission - >7 days at time of admission thus benefits felt to not be there to use. Baricitinib/tozilizumab - was not candidate for such based on criteria. Cont incentive. Cont flutter. Cont albuterol MDI QID. Cont chronic azithromycin. (2) Acute and chronic respiratory failure with hypoxia: Plan: acute component - COVID-19 pneumonia with COPD flare. IMPROVED. During my visit today I cut her O2 to 2 L - sats remained 90% or higher over a 10min time period. chronic - on 2 L NC O2 2nd COPD. (3) COPD (chronic obstructive pulmonary disease): Plan: COPD exacerbation 2nd to COVID infection. IMPROVED. Cont IV dexamethasone - wean from BID to qd dosing today. Home inhalers. Pulmonary toilet. NC O2 support as above. (4) Severe malnutrition: Plan: Continue Boost Underweight does patient have underlying malignancy?? is malnutrition/failure to thrive 2nd to end-stage COPD?? needs w/u post-discharge (5) Acid reflux: Plan: cont H2 josesito (6) Hypertension: Plan: Continue lisinopril 2.5 mg p.o. daily (7) Coronary artery disease: Plan: Continue aspirin Cont Lisinopril Cont to HOLD atorvastatin 2nd to #8 - resume at discharge no ischemic symptoms (8) Transaminitis: Plan: 2nd to COVID-19 infection improving/nearly resolved (9) DVT prophylaxis: Plan: lovenox daily (10) Rash: Plan: ?HSV on chin zovirax QID improving / crusting over Plan: updated pt's daughter Heidi cont PT/OT progressing nicely --- I am hopeful for d/c tomorrow Admission and Anticipated Discharge Date Admission Date: May 29, 2021 Subjective no events overnight feels really good today sitting in chair eating well cough minimal DURAN largely unchanged moving bowels Review of Systems Review of Systems: gen - no fevers/chills cv - no chest pain; no orthopnea pulm - no sputum GI - no N/V Physical Exam Physical Exam: gen - thin, cachectic, no distress; best she has looked this admission neck - no JVD heart - RRR, s1 s2, no murmur lungs - fine crackles bases b/l, no distress, no wheezes abd - soft ND BS+ NT; no HSM ext - no edema, pulses 2+ b/l psych - a/o x 3 skin - herpetic rash on chin - crusted over Results & Data Results & Data ([facility]) Vital Signs (Past 12 Hours) Vital Signs Temp Pulse Pulse Resp BP Pulse Ox Pulse Ox 06/04/21 21:22 36.6 C 86 14 108/66 92 06/04/21 16:00 94 06/04/21 14:58 36.5 C 91 H 16 108/71 94 06/04/21 13:36 94 PG Care Time/CCT Total # of Minutes Spent Total Time Spent with Patient: Total time spent is greater than 50% in coordination of care (as documented) at patient's floor/unit and/or counseling patient: Coding Level of Care Code 45019 Subseq Hosp Care Lvl 2 Diagnoses COVID-19 U07.1 Acute and chronic respiratory failure with hypoxia J96.21 COPD (chronic obstructive pulmonary disease) J44.9 COPD type: unspecified COPD Severe malnutrition E43 Acid reflux K21.9 Esophagitis presence: esophagitis presence not specified Hypertension I10 Hypertension type: essential hypertension Coronary artery disease I25.10 Associated angina: without angina Coronary Disease-Associated Artery/Lesion type: [place] artery [place] vs. transplanted heart: [place] heart Transaminitis R74.01 DVT prophylaxis Z29.9 Rash R21 (1) Coronary artery disease Associated angina: without angina Coronary Disease-Associated Artery/Lesion type: [place] artery [place] vs. transplanted heart: [place] heart Qualified Code(s): I25.10 - Atherosclerotic heart disease of [place] coronary artery without angina pectoris (2) COPD (chronic obstructive pulmonary disease) COPD type: unspecified COPD Qualified Code(s): J44.9 - Chronic obstructive pulmonary disease, unspecified (3) Acid reflux Esophagitis presence: esophagitis presence not specified Qualified Code(s): K21.9 - Gastro-esophageal reflux disease without esophagitis (4) Hypertension Hypertension type: essential hypertension Qualified Code(s): I10 - Essential (primary) hypertension
[2021-06-05 08:04] LABS: Basophils # (auto) 0.02 K/uL (0-0.2); Basophils % (auto) 0.2 %; Eosinophils # (auto) 0.06 K/uL (0-0.5); Eosinophils % (auto) 0.5 %; Hematocrit (blood only) 38.9 % (37-47); Hemoglobin 12.7 g/dL (12.0-16.0); Immature Granulocytes # (auto) 0.41 K/uL (0.00-0.02); Immature Granulocytes % (auto) 3.4 %; Lymphocytes # (auto) 2.47 K/uL (1.2-3.4); Lymphocytes % (auto) 20.5 %; Mean Corpuscular Hemoglobin 30.6 pg (25-34); Mean Corpuscular Hgb Conc 32.6 g/dL (32-36); Mean Corpuscular Volume 93.7 fL (80-100); Monocytes # (auto) 1.17 K/uL (0.11-0.59); Monocytes % (auto) 9.7 %; Neutrophils # (auto) 7.89 K/uL (1.4-6.5); Neutrophils % (auto) 65.7 %; Platelet Count 603 K/uL (130-400); RDW Coefficient of Variation 13.4 % (11.5-14.5); RDW Standard Deviation 45.4 fL (36.4-46.3); Red Blood Count 4.15 M/uL (4.2-5.4); White Blood Count 12.02 K/uL (4.8-10.8)
[2021-06-05 08:31] LABS: BUN Creatinine Ratio 38.2 (10-20); Calcium 8.2 mg/dl (8.5-10.1); Creatinine Clr Calc Pharmacy 56.2 ml/min; Est GFR (African American) 97.4 ml/min; Est GFR (Non-African American) 84.1 ml/min; Potassium 4.2 mmol/L (3.5-5.1)
[2021-06-05] MEDS: dexAMETHasone 6 MG in SYRINGE 0 ML IV SCH (09:36)
[2021-06-05] MEDS: busPIRone 5 MG TAB PO SCH ×2 (09:37→14:04)
[2021-06-05] MEDS: ACYCLOVIR 5% OINT 15 GM TUBE EXT SCH ×3 (09:37→16:47)
[2021-06-05] MEDS: FLUTICASONE FUROATE 100MCG 14 PUFFS/INHALER INH SCH (09:37)
[2021-06-05] MEDS: FAMOTIDINE 20 MG TAB PO SCH (09:38)
[2021-06-05] MEDS: CHOLECALCIFEROL 1,000 UNITS 25 MCG TAB PO SCH (09:38)
[2021-06-05] MEDS: lisinopril 2.5 MG TAB PO SCH (09:38)
[2021-06-05] MEDS: UMECLIDINIUM/VILANTEROL 62.5/25MCG 7 PUFFS/INHALER INH SCH (09:39)
[2021-06-05] MEDS: MULTIVITAMIN TAB PO SCH (09:39)
--- NOTE | 2021-06-05 14:08 | XRay Report ---
SINGLE VIEW CHEST CLINICAL HISTORY: Covid pneumonia. Hypoxia. FINDINGS: An AP, portable, upright chest radiograph is compared to study dated 05/29/2021. Correlation is made with chest CT dated 09/09/2020. The examination is mildly degraded by portable technique and p atient rotation. The cardiomediastinal silhouette is unremarkable noting atherosclerotic calcificatio n of the thoracic aorta. Advanced emphysema is change is again noted with chronic interstitial thicke shyam and apical bullae. Superimposed airspace consolidation is again seen in the left mid to lower juan ng. There is scarring/atelectasis at the right lung base. No large pleural effusion or pneumothorax i s identified. The skeletal structures are osteopenic. The bony thorax is grossly intact. IMPRESSION: 1. Advanced emphysema. 2. Patchy airspace consolidation is again seen in the left mid to lower lung, typical in appearance p [place]. This is unchanged to modestly cleared as compared to 05/29/2021. Continued follow-up to comp lete resolution is recommended. ACT 112: Negative or not required by law. Electronically signed by: Aris Parrish M.D. 06/05/2021 2:07 PM
--- NOTE | 2021-06-05 16:13 | Discharge Summary ---
Date of Service date of admission - May 29, 2021 date of discharge - June 05, 2021 Admission HPI Per Admitting Provider Madi Romo is a 60 year old female who presents to the ER with hypoxia. She was advised to come to the ER by her PCP due to O2 sats 83% on her usual 2LPM O2. She has been sick with COVID-like symptoms since May 21. Symptoms include fatigue, loss of appetite, loss of taste, loss of smell, shortness of breath, cough and mild diarrhea. She is unvaccinated. In the ER she is currently maintaining O2 sats > 88% on 3LPM O2. SARS-COV-2 PCR positive. CXR concerning for interval development of patchy interstitial and alveolar opacities. Procalcitonin negative. She was given a duoneb treatment which she reports helped with her shortness of breath. Principal Diagnosis Acute/chronic hypoxic respiratory failure 2nd to COVID-19 pneumonia Discharge Exam gen - thin, cachectic, no distress, nontoxic neck - no JVD mouth - ?mild thrush plaques heart - RRR, s1 s2, no murmur lungs - fine crackles bases b/l, no distress, no wheezes abd - soft ND BS+ NT; no HSM ext - no edema, pulses 2+ b/l psych - a/o x 3 skin - herpetic rash on chin - crusted over Discharge Data Allergies Allergy/AdvReac Type Severity Reaction Status Date / Time Bactrim Allergy Severe THROAT AND Verified 02/14/17 00:52 EARS SWELL bupropion [From Wellbutrin] Allergy Severe Unknown Verified 05/29/21 13:57 sulfamethoxazole Allergy Severe THROAT AND Verified 05/29/21 13:57 EARS SWELL trimethoprim Allergy Severe THROAT AND Verified 05/29/21 13:57 EARS SWELL codeine AdvReac Intermediate STOMACH Verified 05/29/21 13:57 CRAMPS, "KNOCKS ME OUT FOR DAYS" Consultations PT, OT Procedures Performed 2-step ambulatory O2 test -- needs 2 L NC O2 at rest/sleep; 4 L NC O2 with activity Ordered Studies Chest X-Ray 05/29/21 13:08 XR chest 1V portable CLINICAL HISTORY: SEPSIS. Evaluate cardiopulmonary status COMPARISON STUDY: 05/14/2021 TECHNIQUE: 1 view of the chest FINDINGS: Single frontal view of the chest demonstrates the cardiomediastinal silhouette to be within normal limits. There is hyperinflation of the lungs with attenuation of the pulmonary vasculature peripherally characteristic of underlying chronic obstructive pulmonary disease. Has been interval development of patchy interstitial and alveolar opacities in the left lung base characteristic of early pneumonia. The remainder of the lungs are clear. There is no evidence for pleural effusion. There is no evidence for vascular congestion. There is no acute osseous pathology. IMPRESSION: COPD with interval development of patchy interstitial and alveolar opacities at the left lung base characteristic of early pneumonia. ACT 112: Negative or not required by law. Electronically signed by: Taurus Duron M.D. 05/29/2021 1:43 PM Chest X-Ray 06/05/21 13:07 SINGLE VIEW CHEST CLINICAL HISTORY: Covid pneumonia. Hypoxia. FINDINGS: An AP, portable, upright chest radiograph is compared to study dated 05/29/2021. Correlation is made with chest CT dated 09/09/2020. The examination is mildly degraded by portable technique and patient rotation. The cardiomediastinal silhouette is unremarkable noting atherosclerotic calcification of the thoracic aorta. Advanced emphysema is change is again noted with chronic interstitial thickening and apical bullae. Superimposed airspace consolidation is again seen in the left mid to lower lung. There is scarring/ate lectasis at the right lung base. No large pleural effusion or pneumothorax is identified. The skeletal structures are osteopenic. The bony thorax is grossly intact. IMPRESSION: 1. Advanced emphysema. 2. Patchy airspace consolidation is again seen in the left mid to lower lung, typical in appearance pneumonia. This is unchanged to modestly cleared as compared to 05/29/2021. Continued follow-up to complete resolution is recommended. ACT 112: Negative or not required by law. Electronically signed by: Aris Parrish M.D. 06/05/2021 2:07 PM Hospital Course (1) Pneumonia due to COVID-19 virus: Positive COVID test 05/28 and 05/29. First day of symptoms: 05/21/2021. Admission chest x-ray with evidence of pneumonia primarily in the left lung base. Treated with IV dexamethasone - initially BID, then tapered to once daily dosing prior to discharge. She improved with steroids, supportive care, bronchodilators, and time. Received 8 days of dexamethasone while hospitalized, and will complete 2 more days of such at home. Had mild transaminitis due to her COVID illness. AST normalized prior to discharge. ALT was only scantly elevated at discharge. Remdesivir deferred at admission. She was >7 days at time of admission thus benefits felt to not be there to use. Baricitinib/tozilizumab - was never a candidate for such. She was maintained on her chronic azithromycin while hospitalized. 2-step ambulatory O2 test on day of discharge - needs: * 2 liters NC O2 at rest * 4 liters NC O2 with activity She never had evidence of complicating CHF while here. (2) Acute and chronic respiratory failure with hypoxia: Acute component - 2nd to COVID-19 pneumonia with COPD exacerbation. IMPROVED with IV steroids and supportive care. Chronic - previously on 2 L NC O2 continuously - due to COPD. 2-step O2 test on day of discharge - 2 L NC O2 at rest; 4 L with activity. (3) COPD (chronic obstructive pulmonary disease): COPD exacerbation 2nd to COVID infection. IMPROVED/resolving. Finish a total of 10 days of IV/PO dexamethasone. Continue home inhalers. NC O2 support as above. (4) Severe malnutrition: Continue Boost. Underweight with BMI 19. Is malnutrition/failure to thrive 2nd to severe COPD? Other (malignancy, etc)? Suggest work-up for this post-discharge. (5) Acid reflux: PPI daily. (6) Hypertension: Continue lisinopril 2.5 mg daily. Continue aldactone 3x/week as previous. (7) Coronary artery disease: Continue aspirin Cont Lisinopril Atorvastatin was held 2nd to #8 during the stay but resumed at discharge. no ischemic symptoms during the visit. (8) Transaminitis: 2nd to COVID-19 infection. improving/nearly resolved. recommend repeat ast/alt after discharge for resolution. (9) DVT prophylaxis: lovenox daily employed during the visit. at discharge advised Xarelto 10mg once daily for 30 days. (10) Rash: ?HSV on chin zovirax QID improving / crusting over by time of discharge seen by PT/OT - cleared to return home at discharge Total Time Total Time Spent Total Time Spent (In Minutes): 45 Discharge Plan Discharge Items Patient Disposition: Home - Self-Care Reason For Visit: COVID-19 PNEUMONIA Discharge Diagnosis: 1. COVID-19 pneumonia - improved 2. COPD exacerbation - improved 3. abnormal liver function tests - due to COVID infection - improved Activity: As commented below Activity Comment: gradually increase your activities over the next 1-2 weeks Driving/Machine Use: Resume 3 days after discharge Non-emergency contact: Primary Care Provider and Infrastructure Project Manager Call non-emergency contact if: you have any medication questions, your symptoms worsen and you have a fever Follow-up/Referrals: Rocael Pinzon MD [Physician] - 07/15/21 3:15 pm (2-3 weeks for COVID-19 / COPD follow-up) Parrish Hadley [Primary Care Provider] - 06/13/21 12:50 pm (within 1 week) Diet: Heart Healthy Addtl Attending Provider Instructions: Mrs Romo, You were hospitalized for COVID-19 pneumonia. You were treated with a combination of steroids, oxygen, and other supportive care. You needed a little more oxygen than usual (4 liters) because of the pneumonia. An ambulatory oxygen test on 06/05/21 showed that you need to use your oxygen as follows -- * 2 liters at rest and with sleep * 4 liters with activity/ambulation Recommendations - 1. COVID-19 pneumonia - * take dexamethasone steroid - 6mg once daily with food x 2 more days. Start this tomorrow on 06/06/2021. * ok to take [id number] mucinex up to 1200mg twice daily for cough as needed/as desired * continue your breathing exercises with your flutter valve and your incentive spirometry device; continue them for at least another week * continue your usual inhalers for your COPD; for the next week or so you may want to use your albuterol 2-3 times each day for cough/congestion 2. For prevention of DVT blood clots and pulmonary emboli (blood clots in lungs) - * take Xarelto 10mg once daily x 30 days; start this tomorrow, 06/06/21 * see instructions below regarding Xarelto 3. For recent sore throat - take magic mouthwash, 5cc every 6 hours - swish and spit. Do this for 3 more days then stop. 4. You are unlikely to be contagious to others at this time. You do not need to isolate at home. However, with that said, plan to spend the next few days at home resting and recovering. 5. To help prevent stomach irritation while on the steroids and Xarelto - * take pantoprazole 40mg once daily for 30 days; you can start this tomorrow morning 6. Continue to wear a mask any time you leave your home. 7. Check your oxygen levels on your finger with a pulse oximeter 3-4 times each day. If you are consistently 88% or higher these are acceptable readings. If you are less than 88% consistently please call your general repair mechanic or family doctor right away. 8. Obtain a flu shot in about 3-4 weeks if you haven't had one. 9. It is important to listen to your body during the recovery period. If you are tired it is ok to rest/nap. You are going to feel more tired than usual and you won't be back to 100% for a couple of weeks, perhaps even longer. Gradually increase your activities. 10. For the rash on your chin - may use acyclovir ointment, up to 4 times a day, for another 2-3 days then stop. 11. Your platelet count was modestly high and your liver function tests were also modestly high. These are already improving. These labs were off due to the COVID infection itself. Please have your family doctor check a CBC and liver function tests at time of hospital follow-up. 12. Finally, after you recover from your COVID illness, please talk to your family doctor about your weight loss. Follow-up - see separate section Return to [facility] if - * you have fevers over 100 degrees * you have worsening shortness of breath * your pulse oximetry readings are less than 88% consistently * you have to turn the oxygen up on your oxygen tank to more than 4 liters * you have bleeding from any location as listed below * you have chest pains * any other concerns It was our pleasure caring for you at [facility]! Continue to feel better Mrs Romo, Dr Tello Addtl Sewer Line Photo Inspector Provider Instructions: Blood Thinner (Anticoagulation) Medication Instructions: For reasons not entirely understood having COVID-19 infection, in some individuals, increases the chances of developing DVT blood clots of the legs and blood clots of the lungs. To prevent blood clots during your recovery we are prescribing you a blood thinner named XARELTO. * You should take your medication exactly as directed. * Never skip a dose. * Never take a double dose. If you miss a dose, take it as soon as you remember. Call your Primary Care doctor if you experience any of the following: * Swelling or Pain in your leg * Sudden, continuous pain deep in a muscle * Pain that worsens when you are active or when you stand still for a long time * Chest Pain * Sudden Shortness of Breath * Rapid or pounding heart beat * Fainting * Dizziness * Cough with blood or bloody sputum * Sweating more than normal * Bruises * Heavy or uncontrolled bleeding * Blood in your urine, stool or vomit * Black or tarry stools * Heavy nose bleeding Caring for Your Self at Home: * Avoid sitting, standing or lying down for long periods without moving your legs and feet * When traveling by car, stop to get out and move around at least once every 3 hours * On long airplane, train or bus rides, get up and move around when possible * If you can't get up, wiggle your toes and tighten your calves to keep your blood moving Pending Studies at Discharge: No Stand-Alone Forms: [facility] HandMinder, Smoking Cessation Medications and DC Order Prescriptions: New acyclovir [Zovirax] 5 % Ointment 1 applic EXT QID Qty: 1 RF: 0 Xarelto 10 mg tablet 10 mg PO DAILY Qty: 30 RF: 0 pantoprazole [Protonix] 40 mg tablet,delayed release (DR/EC) 40 mg PO QAM Qty: 30 RF: 0 (DME) Oxygen Home Liters Per Minute See Rx Instructions .ROUTE .MEDSUPPLY Qty: 1 RF: 0 Magic Mouthwash 300 mL mouthwash 5 ml mucous membrane Q6HWA Qty: 300 RF: 0 Continued alprazolam 0.25 mg tablet 0.25 mg PO DAILY PRN (Reason: sleep) RF: 0 atorvastatin 40 mg tablet 40 mg PO HS RF: 0 lisinopril 2.5 mg tablet 2.5 mg PO QAM RF: 0 aspirin [Adult Low Dose Aspirin] 81 mg tablet,delayed release (DR/EC) 81 mg PO Q2D RF: 0 multivitamin [Multiple Vitamins] Tablet 1 tab PO DAILY RF: 0 cholecalciferol (vitamin D3) 25 mcg (1,000 unit) capsule 25 mcg PO DAILY RF: 0 ipratropium-albuterol 0.5 mg-3 mg(2.5 mg base)/3 mL solution for nebulization 3 ml INHALATION QID PRN (Reason: SOB/WHEEZING) Qty: 180 RF: 5 Combivent Respimat 20-100 mcg/actuation mist 1 puff INHALATION QID PRN (Reason: SOB/WHEEZING) Qty: 4 RF: 3 Trelegy Ellipta 100-62.5-25 mcg blister with device 1 inh INHALATION QAM Qty: 60 RF: 7 azithromycin 250 mg tablet 250 mg PO MOWEFR Qty: 36 RF: 3 escitalopram oxalate 20 mg tablet 20 mg PO HS RF: 0 spironolactone [Aldactone] 25 mg tablet 25 mg PO 3XWK RF: 0 buspirone 5 mg tablet 5 mg PO TID RF: 0 Discharge Orders: Discharge Order (Routine); Ordered 06/05/21 Ordered By: Fransisco Queen/Other Patient Handouts: Disinfecting Your Home of COVID-19, 2019-nCoV, COVID-19 Home Care, COVID-19 and the Flu What's ... Admission Data Admit Date/Time: 05/29/21 18:00 Attending Provider: Fransisco Tello Admit Provider: Fransisco Graham Primary Care Provider: Parrish Hadley Other Providers: Fransisco Graham Other Interventions: Discharge Summary Assessment (RN) Last Done: 06/05/21 16:23 Coding Level of Care Code D/C DAY MANAGEMENT >30 MINS Diagnoses Acute and chronic respiratory failure with hypoxia J96.21 COPD (chronic obstructive pulmonary disease) J44.9 COPD type: unspecified COPD Severe malnutrition E43 Acid reflux K21.9 Esophagitis presence: esophagitis presence not specified Hypertension I10 Hypertension type: essential hypertension Coronary artery disease I25.10 Coronary Disease-Associated Artery/Lesion type: [place] artery [place] vs. transplanted heart: [place] heart Associated angina: without angina Transaminitis R74.01 DVT prophylaxis Z29.9 Rash R21 Pneumonia due to COVID-19 virus U07.1; J12.82
== END 2021-06-05 18:00 | disposition home or self-care (01) | DRG 177 ==
LOC: ED 12:05 → EDINP 18:00 → SUATTDRO 18:00 → 3E 20:58

== ENCOUNTER 2022-05-07 13:04 | Inpatient (IN) ==
--- NOTE | 2022-05-07 14:19 | XRay Report ---
TWO VIEW CHEST CLINICAL HISTORY: Pneumonia. FINDINGS: PA and lateral chest radiographs are compared to study dated 04/03/2022 and correlated with chest CT dated 03/26/2022. The cardiomediastinal silhouette is unremarkable noting atherosclerotic c alcification of the thoracic aorta. Advanced emphysema and chronic interstitial thickening is similar to previous. Foci of parenchymal scarring are seen throughout both lungs. Left basilar opacities hav e partially cleared as compared to previous. There is increasing nodularity at the lateral right lung base. No pleural effusion or pneumothorax is seen. The skeletal structures are osteopenic. The bony thorax appears intact. IMPRESSION: 1. Advanced emphysema. 2. Left basilar opacities have partially cleared and there is increasing nodularity at the right lung base as compared to 04/03/2022. Continued radiographic follow-up to complete resolution is recommend ed. ACT 112: Negative or not required by law. Electronically signed by: Aris Parrish M.D. 05/07/2022 2:18 PM
--- NOTE | 2022-05-07 14:26 | Emergency Department Note ---
Impression & Plan Influenza A ED Provider Note HISTORY OF PRESENT ILLNESS: Patient is a 61 year old female presenting with shortness of breath, cough, nausea and diarrhea. Patient reports symptoms started yesterday. Reports she has a history of COPD and wears 3L NC at baseline. In the last 24 hours she has increased her supplemental oxygen to 4L with minimal improvement in her shortness of breath. Reports a non-productive cough. Has felt nauseated since yesterday. Has had 2 episodes of watery stool in the past 24 hours. Denies any recent exposure to sick contacts. Reports subjective fevers at home. Denies any recent steroid use. She is on azithromycin three times a week, which she states "I've been on for a while." Patient reports right lower lateral chest wall pain. Denies any DVT or PE history. Denies any anticoagulation use. ROS: Constitutional: No chills, or weakness +subjective fevers Skin: No rash or diaphoresis HENT: No headaches or congestion Eyes: No vision changes Cardio: No palpitations or leg swelling +chest wall pain Respiratory: +cough; +wheezing; +shortness of breath GI: No vomiting, constipation +nausea; +diarrhea : No dysuria, polyuria MSK: No joint or back pain Neuro: No loss of sensation, confusion, focal deficits, numbness, tingling Psychiatric: No mood changes PHYSICAL EXAM: Constitutional: Patient appears in no acute distress. HENT: Head: Normocephalic and atraumatic. Eyes: EOMI, PERRL Mouth/Throat: Mucous membranes moist. Neck: Trachea midline. Neck supple. Cardiovascular: RRR, No murmurs, rubs or gallops. Intact distal pulses. Pulmonary/Chest: No respiratory distress. Breath sounds clear and equal bilaterally. Expiratory wheezes bilaterally. Abdominal: BS +. Abdomen soft, no tenderness, rebound or guarding. Back: No midline spinal tenderness, no paraspinal tenderness, no CVA tenderness. Musculoskeletal: No edema, tenderness or deformity noted. Skin: Warm and dry. No rash, erythema, pallor or cyanosis Psychiatric: Appropriate mood and affect for situation. Neurological: Alert and keenly responsive. CN II-XII grossly intact, moving all extremities equally and fully. MDM: - Vitals signs showed tachycardia. - EKG negative for acute ischemic changes. Shows sinus tachycardia with rate 101 bpm. - Laboratory workup showed normal WBC; stable electrolytes; normal magnesium; normal troponin; normal BNP; nromal procalcitonin - UA negative for obvious infection. - CXR showed increased nodularity in right lung base. - ABG showed respiratory alkalosis. - Influenza A positive. - Given patient's increased oxygen requirement from her baseline, will admit to hospitalist. - Patient admitted to [facility] for further evlauation and management ASSESSMENT AND PLAN: Diagnosis: dyspnea; nausea and diarrhea; influenza A Plan: admit Past Med/Surg History Medical History Acid reflux Anxiety Aortic regurgitation Bronchitis Chronic respiratory failure with hypoxia Colitis COPD (chronic obstructive pulmonary disease) Coronary artery disease Elevated WBC count Emphysema of lung Heart disease Hypertension Myocardial infarct Nausea Pneumonia Pneumonia due to COVID-19 virus Surgical History History of appendectomy History of hysterectomy History of tonsillectomy Stented coronary artery Family History Father Lung cancer Mother , age 68 Stroke Brother Enlarged liver Grandmother (Maternal) Colorectal cancer Other Diabetes Hypertension Denies family history of Ovarian cancer Prostate cancer Breast cancer Social History Smoking Status: Never smoker Tobacco Type: Cigarettes Cigarettes Per Day: 20; Second Hand Exposure: Yes; Hx Alcohol Use: Yes Hx Substance Use: No Preferred Language: Amharic Communication Ability: Effective Visual Impairment: No Limitations Hearing Ability: Normal Swing Driver Required: No Beliefs That Will Affect Care: None marital status: Current Living Situation: Spouse Current Living Situation Comment: Feels Safe at Home: Yes Assistive Devices: Oxygen - Continuous Allergies Allergies Allergy/AdvReac Type Severity Reaction Status Date / Time bupropion [From Wellbutrin] Allergy Severe Unknown Verified 04/03/22 00:06 sulfamethoxazole Allergy Severe THROAT AND Verified 04/03/22 00:06 EARS SWELL trimethoprim Allergy Severe THROAT AND Verified 04/03/22 00:06 EARS SWELL codeine AdvReac Intermediate STOMACH Verified 04/03/22 00:06 CRAMPS, "KNOCKS ME OUT FOR DAYS" Home Meds Home Medications Medication Instructions Recorded Confirmed aspirin 81 mg tablet,delayed 81 mg PO Q2D 12/17/19 12/29/22 release (Adult Low Dose Aspirin) cholecalciferol (vitamin D3) 25 25 mcg PO DAILY 03/26/21 05/07/22 mcg (1,000 unit) capsule ascorbic acid 1,000 1 ea PO DAILY 04/03/22 05/07/22 on-vrfezykpvzjt-ohdlcshk powder effervescent pack (Emergen-C) azithromycin 250 mg tablet 250 mg PO 3XWK 04/03/22 05/07/22 mirtazapine 7.5 mg tablet 7.5 mg PO HS 04/03/22 05/07/22 multivitamin 1 tab PO DAILY 04/03/22 05/07/22 Previous Rx's Medication Instructions Recorded Oxygen Home #1 ea 06/05/21 fluticasone fur. 100 mcg-umeclid 1 inh inhalation QAM #60 ea 07/15/21 62.5 mcg-vilant 25 mcg inhalat.powder (Trelegy Ellipta) ipratropium 20 mcg-albuterol 100 1 puff inhalation QID PRN 07/15/21 mcg/actuation mist for inhalation SOB/WHEEZING #4 grams (Combivent Respimat) albuterol sulfate 90 mcg/actuation 1 inh inhalation QID PRN shortness 10/10/21 aerosol inhaler of breath or wheezing #8.5 grams lisinopril 5 mg tablet 2.5 mg PO DAILY #90 tabs 10/10/21 atorvastatin 40 mg tablet 40 mg PO HS #90 tabs 11/24/21 buspirone 5 mg tablet 5 mg PO TID #270 tabs 01/07/22 escitalopram oxalate 20 mg tablet 20 mg PO HS #90 tabs 01/07/22 cefpodoxime 200 mg tablet 200 mg PO BID 10 days #20 tabs 03/27/22 alprazolam 0.25 mg tablet 0.125 - 0.25 mg PO DAILY PRN 03/31/22 anxiety 30 days #30 tabs Results & Data (ED) Vital Signs Vital Signs - 24 hr 05/07/22 13:09 05/07/22 13:42 05/07/22 16:28 Temperature 36.8 C Temperature Source Temporal Artery Scan Pulse Rate 116 H Pulse Rate [Apical] 112 H Pulse Rhythm Regular Respiratory Rate 16 18 Respiratory Effort / Characteristics Non-Labored Spontaneous Respiratory Depth Normal Blood Pressure 117/85 Blood Pressure [Right Arm] 133/74 Blood Pressure Mean 95 Blood Pressure Mean [Right Arm] 93 Pulse Oximetry 90 98 96 Oxygen Delivery Method Nasal Cannula Nasal Cannula Nasal Cannula Oxygen Flow Rate 4 4 4 Sepsis Recent Fever Within 48 Hours No Sepsis New/Unexplained Change in Mental Status No Sepsis Action Taken by Nursing No Action Required 05/07/22 16:42 Temperature Temperature Source Pulse Rate Pulse Rate [Apical] 104 H Pulse Rhythm Respiratory Rate 24 Respiratory Effort / Characteristics Respiratory Depth Blood Pressure Blood Pressure [Right Arm] 139/85 Blood Pressure Mean Blood Pressure Mean [Right Arm] 103 Pulse Oximetry 96 Oxygen Delivery Method Nasal Cannula Oxygen Flow Rate 4 Sepsis Recent Fever Within 48 Hours Sepsis New/Unexplained Change in Mental Status Sepsis Action Taken by Nursing Laboratory Data Result diagrams: 05/07/22 14:50 05/07/22 14:50 Lab Results 05/07/22 05/07/22 05/07/22 Range/Units 14:50 14:50 14:50 WBC 6.87 (4.8-10.8) K/ul RBC 4.41 (3.93-5.22) M/uL Hgb 13.3 (12.0-16.0) g/dl Hct 40.3 (34.1-44.9) % MCV 91.4 (80.0-100.0) fL MCH 30.2 (25.0-34.0) pg MCHC 33.0 (32.0-36.0) g/dL RDW Std Deviation 46.1 (36.4-46.3) fL RDW Coeff of Luis 13.6 (11.5-14.5) % Plt Count 251 (130-400) K/uL MPV 9.5 (9.4-12.3) fL Immature Gran % (Auto) 0.3 % Neut % (Auto) 80.4 % Lymph % (Auto) 15.4 % [place] % (Auto) 3.9 % Eos % (Auto) 0.0 % Baso % (Auto) 0.0 % Neut # (Auto) 5.52 (1.4-6.5) K/uL Lymph # (Auto) 1.06 L (1.2-3.4) K/uL [place] # (Auto) 0.27 (0.24-0.82) K/uL Eos # (Auto) 0.00 (0-0.50) K/uL Baso # (Auto) 0.00 (0-0.2) K/uL Immature Gran # (Auto) 0.02 (0.00-0.02) K/uL ABG pH (7.35-7.45) ABG pCO2 (35-46) mmHg ABG pO2 (80-95) mmHg ABG HCO3 (19-24) mmol/L ABG O2 Saturation (90-95) % ABG Base Excess (-9-1.8) mEq/L [place] Test (Pos) Oxygen Given Sodium 139 (136-145) mmol/L Potassium 3.9 (3.5-5.1) mmol/L Chloride 100 (98-107) mmol/L Carbon Dioxide 30 (21-32) mmol/L Anion Gap 9 (3-11) BUN 7 (6-23) mg/dl Creatinine 0.71 (0.6-1.2) mg/dl Est Cr Clr Drug Dosing Not Reportable Est GFR ( Amer) 105.1 ml/min Est GFR (Non-Af Amer) 90.7 ml/min BUN/Creatinine Ratio 9.9 L (10-20) Glucose 110 H (70-99(Fasting)) mg/dl Calcium 8.9 (8.5-10.1) mg/dl Magnesium 1.8 (1.7-2.4) mg/dl Total Bilirubin 0.4 (0.2-1.0) mg/dl AST 38 (13-39) U/L ALT 30 (7-52) U/L Alkaline Phosphatase 87 (34-104) U/L Troponin I High Sens 8.3 (0-14) pg/ml B-Natriuretic Peptide 61 (0-100) pg/ml Total Protein 7.1 (6.0-8.3) gm/dl Albumin 4.3 (3.4-5.0) gm/dl Globulin 2.8 (2.5-4.0) gm/dl Albumin/Globulin Ratio 1.5 (0.9-2) Procalcitonin (0-0.5) ng/ml Urine Color Urine Appearance (Clear) Urine pH (4.5-7.5) Ur Specific [place] (1.000-1.030) Urine Protein (Negative) Urine Glucose (UA) (Negative) Urine Ketones (Negative) Urine Blood (Negative) Urine Nitrite (Negative) Urine Bilirubin (Negative) Urine Urobilinogen (Negative) Ur Leukocyte Esterase (Negative) Urine WBC (Auto) (0-5) /hpf Urine RBC (Auto) (0-4) /hpf U Hyaline Cast (Auto) (0-5) /lpf U Epithel Cells (Auto) (0-5) /lpf Urine Bacteria (Auto) (Negative) SARS-CoV-2 (PCR) (Negative) Influenza Type A (PCR) (Neg) Influenza Type B (PCR) (Neg) RSV (RT-PCR) (Neg) 05/07/22 05/07/22 05/07/22 Range/Units 14:50 14:52 15:40 WBC (4.8-10.8) K/ul RBC (3.93-5.22) M/uL Hgb (12.0-16.0) g/dl Hct (34.1-44.9) % MCV (80.0-100.0) fL MCH (25.0-34.0) pg MCHC (32.0-36.0) g/dL RDW Std Deviation (36.4-46.3) fL RDW Coeff of Luis (11.5-14.5) % Plt Count (130-400) K/uL MPV (9.4-12.3) fL Immature Gran % (Auto) % Neut % (Auto) % Lymph % (Auto) % [place] % (Auto) % Eos % (Auto) % Baso % (Auto) % Neut # (Auto) (1.4-6.5) K/uL Lymph # (Auto) (1.2-3.4) K/uL [place] # (Auto) (0.24-0.82) K/uL Eos # (Auto) (0-0.50) K/uL Baso # (Auto) (0-0.2) K/uL Immature Gran # (Auto) (0.00-0.02) K/uL ABG pH 7.47 H (7.35-7.45) ABG pCO2 36 (35-46) mmHg ABG pO2 97 H (80-95) mmHg ABG HCO3 26 H (19-24) mmol/L ABG O2 Saturation 95.0 (90-95) % ABG Base Excess 2.7 H (-9-1.8) mEq/L [place] Test Pos (Pos) Oxygen Given 4L Sodium (136-145) mmol/L Potassium (3.5-5.1) mmol/L Chloride (98-107) mmol/L Carbon Dioxide (21-32) mmol/L Anion Gap (3-11) BUN (6-23) mg/dl Creatinine (0.6-1.2) mg/dl Est Cr Clr Drug Dosing Est GFR ( Amer) ml/min Est GFR (Non-Af Amer) ml/min BUN/Creatinine Ratio (10-20) Glucose (70-99(Fasting)) mg/dl Calcium (8.5-10.1) mg/dl Magnesium (1.7-2.4) mg/dl Total Bilirubin (0.2-1.0) mg/dl AST (13-39) U/L ALT (7-52) U/L Alkaline Phosphatase (34-104) U/L Troponin I High Sens (0-14) pg/ml B-Natriuretic Peptide (0-100) pg/ml Total Protein (6.0-8.3) gm/dl Albumin (3.4-5.0) gm/dl Globulin (2.5-4.0) gm/dl Albumin/Globulin Ratio (0.9-2) Procalcitonin < 0.05 (0-0.5) ng/ml Urine Color Urine Appearance (Clear) Urine pH (4.5-7.5) Ur Specific [place] (1.000-1.030) Urine Protein (Negative) Urine Glucose (UA) (Negative) Urine Ketones (Negative) Urine Blood (Negative) Urine Nitrite (Negative) Urine Bilirubin (Negative) Urine Urobilinogen (Negative) Ur Leukocyte Esterase (Negative) Urine WBC (Auto) (0-5) /hpf Urine RBC (Auto) (0-4) /hpf U Hyaline Cast (Auto) (0-5) /lpf U Epithel Cells (Auto) (0-5) /lpf Urine Bacteria (Auto) (Negative) SARS-CoV-2 (PCR) NEGATIVE (Negative) Influenza Type A (PCR) Positive A* (Neg) Influenza Type B (PCR) Negative (Neg) RSV (RT-PCR) Negative (Neg) 12/29/22 Range/Units 16:23 WBC (4.8-10.8) K/ul RBC (3.93-5.22) M/uL Hgb (12.0-16.0) g/dl Hct (34.1-44.9) % MCV (80.0-100.0) fL MCH (25.0-34.0) pg MCHC (32.0-36.0) g/dL RDW Std Deviation (36.4-46.3) fL RDW Coeff of Luis (11.5-14.5) % Plt Count (130-400) K/uL MPV (9.4-12.3) fL Immature Gran % (Auto) % Neut % (Auto) % Lymph % (Auto) % [place] % (Auto) % Eos % (Auto) % Baso % (Auto) % Neut # (Auto) (1.4-6.5) K/uL Lymph # (Auto) (1.2-3.4) K/uL [place] # (Auto) (0.24-0.82) K/uL Eos # (Auto) (0-0.50) K/uL Baso # (Auto) (0-0.2) K/uL Immature Gran # (Auto) (0.00-0.02) K/uL ABG pH (7.35-7.45) ABG pCO2 (35-46) mmHg ABG pO2 (80-95) mmHg ABG HCO3 (19-24) mmol/L ABG O2 Saturation (90-95) % ABG Base Excess (-9-1.8) mEq/L [place] Test (Pos) Oxygen Given Sodium (136-145) mmol/L Potassium (3.5-5.1) mmol/L Chloride (98-107) mmol/L Carbon Dioxide (21-32) mmol/L Anion Gap (3-11) BUN (6-23) mg/dl Creatinine (0.6-1.2) mg/dl Est Cr Clr Drug Dosing Est GFR ( Amer) ml/min Est GFR (Non-Af Amer) ml/min BUN/Creatinine Ratio (10-20) Glucose (70-99(Fasting)) mg/dl Calcium (8.5-10.1) mg/dl Magnesium (1.7-2.4) mg/dl Total Bilirubin (0.2-1.0) mg/dl AST (13-39) U/L ALT (7-52) U/L Alkaline Phosphatase (34-104) U/L Troponin I High Sens (0-14) pg/ml B-Natriuretic Peptide (0-100) pg/ml Total Protein (6.0-8.3) gm/dl Albumin (3.4-5.0) gm/dl Globulin (2.5-4.0) gm/dl Albumin/Globulin Ratio (0.9-2) Procalcitonin (0-0.5) ng/ml Urine Color Yellow Urine Appearance Clear (Clear) Urine pH 6.5 (4.5-7.5) Ur Specific [place] 1.015 (1.000-1.030) Urine Protein Trace H (Negative) Urine Glucose (UA) Negative (Negative) Urine Ketones 2+ H (Negative) Urine Blood Trace H (Negative) Urine Nitrite Negative (Negative) Urine Bilirubin Negative (Negative) Urine Urobilinogen Negative (Negative) Ur Leukocyte Esterase Negative (Negative) Urine WBC (Auto) 1-5 (0-5) /hpf Urine RBC (Auto) 10-30 H (0-4) /hpf U Hyaline Cast (Auto) 1-5 (0-5) /lpf U Epithel Cells (Auto) 5-10 H (0-5) /lpf Urine Bacteria (Auto) Negative (Negative) SARS-CoV-2 (PCR) (Negative) Influenza Type A (PCR) (Neg) Influenza Type B (PCR) (Neg) RSV (RT-PCR) (Neg) Administered Medications Discontinued Medications Albuterol (Albut/Ipratrop 3mg/0.5mg Neb 3 Ml Vial) 3 ml NEB NOW STA; Protocol Stop: 05/07/22 14:34 Last Admin: 05/07/22 16:20 Dose: 3 ml Documented By: W Imaging Data Radiologist's Impression: Chest X-Ray 05/07/22 13:13 TWO VIEW CHEST CLINICAL HISTORY: Pneumonia. FINDINGS: PA and lateral chest radiographs are compared to study dated 04/03/2022 and correlated with chest CT dated 03/26/2022. The cardiomediastinal silhouette is unremarkable noting atherosclerotic calcification of the thoracic aorta. Advanced emphysema and chronic interstitial thickening is similar to previous. Foci of parenchymal scarring are seen throughout both lungs. Left basilar opacities have partially cleared as compared to previous. There is increasing nodularity at the lateral right lung base. No pleural effusion or pneumothorax is seen. The skeletal structures are osteopenic. The bony thorax appears intact. IMPRESSION: 1. Advanced emphysema. 2. Left basilar opacities have partially cleared and there is increasing nodularity at the right lung base as compared to 04/03/2022. Continued radiographic follow-up to complete resolution is recommended. ACT 112: Negative or not required by law. Electronically signed by: Aris Parrish M.D. 05/07/2022 2:18 PM Discharge Plan Visit Data Chief Complaint: Illness Stated Complaint: DIARRHEA, LOW OXYGEN LEVEL, NAUSEA ED Provider: Mikayla Hanley Discharge Problem: Influenza A Patient Disposition: Admitted As Inpatient Forms Stand Alone Forms: [facility] Prescriptions Prescriptions: No Action aspirin [Adult Low Dose Aspirin] 81 mg tablet,delayed release (DR/EC) 81 mg PO Q2D Rx Instructions: 81 mg PO every other day; atorvastatin 40 mg tablet 40 mg PO HS Qty: 90 3RF cefpodoxime 200 mg tablet 200 mg PO BID 10 Days Qty: 20 0RF Rx Instructions: STARTED 03/27/22 FOR 10 DAYS. must administer with a meal/food alprazolam 0.25 mg tablet 0.125 - 0.25 mg PO DAILY PRN (Reason: anxiety) 30 Days Qty: 30 0RF cholecalciferol (vitamin D3) 25 mcg (1,000 unit) capsule 25 mcg PO DAILY buspirone 5 mg tablet 5 mg PO TID Qty: 270 3RF escitalopram oxalate 20 mg tablet 20 mg PO HS Qty: 90 3RF albuterol sulfate 90 mcg/actuation HFA aerosol inhaler 1 inh inhalation QID PRN (Reason: shortness of breath or wheezing) Qty: 8.5 0RF lisinopril 5 mg tablet 2.5 mg PO DAILY Qty: 90 3RF Trelegy Ellipta 100-62.5-25 mcg blister with device 1 inh INHALATION QAM Qty: 60 7RF Combivent Respimat 20-100 mcg/actuation mist 1 puff INHALATION QID PRN (Reason: SOB/WHEEZING) Qty: 4 4RF (DME) Oxygen Home Liters Per Minute See Rx Instructions .ROUTE .MEDSUPPLY Qty: 1 0RF Rx Instructions: 2 liters at rest; 4 liters with activity/ambulation multivitamin [Hair,Nails and Skin Vitamin] Tablet 1 tab PO DAILY Emergen-C 1,000 mg Powder Effervescent In Packet 1 ea PO DAILY azithromycin 250 mg tablet 250 mg PO 3XWK Rx Instructions: 250 mg PO 1 tab p.o. Digtfv-Wkqffmejg-Aijjgd; mirtazapine 7.5 mg tablet 7.5 mg PO HS Referrals Referrals: Sunshine Worthy MD [Primary Care Provider] -
[2022-05-07] MEDS ORDERED: ALBUT/IPRATROP 3MG/0.5MG NEB 3 ML VIAL NEB STA (14:33)
[2022-05-07 15:09] LABS: Hematocrit (blood only) 40.3 % (34.1-44.9); Hemoglobin 13.3 g/dl (12.0-16.0); Immature Granulocytes # (auto) 0.02 K/uL (0.00-0.02); Immature Granulocytes % (auto) 0.3 %; Lymphocytes # (auto) 1.06 K/uL (1.2-3.4); Lymphocytes % (auto) 15.4 %; Mean Corpuscular Hemoglobin 30.2 pg (25.0-34.0); Mean Corpuscular Volume 91.4 fL (80.0-100.0); Mean Platelet Volume 9.5 fL (9.4-12.3); Monocytes # (auto) 0.27 K/uL (0.24-0.82); Monocytes % (auto) 3.9 %; Neutrophils # (auto) 5.52 K/uL (1.4-6.5); Neutrophils % (auto) 80.4 %; Platelet Count 251 K/uL (130-400); RDW Coefficient of Variation 13.6 % (11.5-14.5); RDW Standard Deviation 46.1 fL (36.4-46.3); Red Blood Count 4.41 M/uL (3.93-5.22); White Blood Count 6.87 K/ul (4.8-10.8)
[2022-05-07 15:32] LABS: Alanine Aminotransferase 30 U/L (7-52); Albumin Globulin Ratio 1.5 (0.9-2); Albumin Level 4.3 gm/dl (3.4-5.0); Alkaline Phosphatase 87 U/L (34-104); Anion Gap 9 (3-11); Aspartate Aminotransferase 38 U/L (13-39); BUN Creatinine Ratio 9.9 (10-20); Bilirubin,Total 0.4 mg/dl (0.2-1.0); Blood Urea Nitrogen 7 mg/dl (6-23); Calcium 8.9 mg/dl (8.5-10.1); Carbon Dioxide 30 mmol/L (21-32); Chloride 100 mmol/L (98-107); Est GFR (African American) 105.1 ml/min; Est GFR (Non-African American) 90.7 ml/min; Globulin 2.8 gm/dl (2.5-4.0); Glucose 110 mg/dl (70-99(Fasting)); Magnesium 1.8 mg/dl (1.7-2.4); Potassium 3.9 mmol/L (3.5-5.1); Sodium 139 mmol/L (136-145); Total Protein 7.1 gm/dl (6.0-8.3)
[2022-05-07 15:35] LABS: Troponin I High Sensitivity 8.3 pg/ml (0-14)
[2022-05-07 15:46] LABS: Base Excess ABG 2.7 mEq/L (-9-1.8); HCO3 ABG 26 mmol/L (19-24); PCO2 ABG 36 mmHg (35-46); PO2 ABG 97 mmHg (80-95); pH ABG 7.47 (7.35-7.45)
[2022-05-07 15:49] LABS: Influenza B virus by PCR Negative (Neg); RSV by PCR Negative (Neg); SARS CoV2 RNA(COVID-19) Ceph NEGATIVE (Negative)
[2022-05-07 15:54] LABS: Allen Test Pos (Pos)
[2022-05-07 16:13] LABS: Influenza A virus by PCR Positive (Neg)
[2022-05-07 16:41] LABS: Appearance Urine Clear (Clear); Bacteria Urine Automated Negative (Negative); Bilirubin Urine Negative (Negative); Blood Urine Trace (Negative); Color Urine Yellow; Glucose Urine UA Negative (Negative); Ketones Urine 2+ (Negative); Leukocyte Esterase Urine Negative (Negative); Nitrite Urine Negative (Negative); Protein Urine Trace (Negative); Specific Gravity Urine 1.015 (1.000-1.030); Urobilinogen Urine Negative (Negative); pH Urine 6.5 (4.5-7.5)
--- NOTE | 2022-05-07 17:14 | History & Physical Report ---
Date of Service May 07, 2022 Assessment & Plan (1) Acute and chronic respiratory failure with hypoxia: Plan: -Admit to med/tele -Patient is currently afebrile, hemodynamically stable, and stable on her 3L NC at rest but desaturates currently with exertion -Patient noted URI symptoms approximately 3 days ago, now with increased O2 requirements, increased cough, and increased sputum production -Found to be influenza A positive, likely causing a COPD exacerbation, does not appear that she has a bacterial pneumonia at this time as procal is < 0.05 and she is without obvious infiltrate on CXR -Will start patient on BID tamiflu and 40 mg PO prednisone x 5 days for COPD exacerbation -Patient normally on PO azithromycin MWF ordered by her superintendent local, will wood chopper her a 500 mg PO dose now then switch to daily dosing for COPD exacerbation. Once she completes her COPD treatment course switch back to her normal dosing -Patient is tachycardic and not on anticoagulation, will obtain CTPE to rule out PE, renal function is stable -Continue to monitor on tele and pulse oximetry -Incentive spirometry, flutter therapy, scheduled DuoNebs, continue home breathing treatments, wean back to baseline O2 with ambulation as able -BL SCDs and lovenox for DVT PPX -AM CBC and BMP (2) Influenza A: Plan: -See acute on chronic hypoxic respiratory failure (3) COPD (chronic obstructive pulmonary disease): Plan: -See acute on chronic hypoxic respiratory failure (4) Coronary artery disease: Plan: -Conitnue aspirin (5) Hypertension: Plan: -Continue lisinopril (6) Acid reflux: Plan: -pantoprazole while admitted for ulcer prophylaxis (7) Dyslipidemia: Plan: -Conitnue statin Plan The patient was discussed with Dr. Ramirez at the time of the admission History of Present Illness Chief Complaint: SOB Primary Care Provider: Sunshine Worthy MD Madi Romo is a 61 year old female with a PMH significant for chronic respiratory failure normally on 2L NC, CAD, previous MA in 2012 S/P PCI X 2, HTN, dyslipidemia, and severe malnutrition who presented to the [facility] ED on 05/07/22 with a chief complaint of increased oxygen requirements. Per the ED triage report, the patient stated that she thinks she has Pneumonia as she has been hypoxic in the low 80s on her baseline 2L NC, she also noted nausea and diarrhea. In the ED the patient was found to be afebrile, hemodynamically stable, saturating at 90% of 4L NC, and tachycardic at 116. Labs were remarkable for a CBC WNL, stable renal function, electrolytes, and LFTs, negative initial high sensitivity troponin, ABG showing a pH of 7.47, pCO2 of 36, pO2 of 97, and bicarb of 26, negative procal, influenza A positive, Covid/Influenza B/RSV negative. Chest xray was read as 1. Advanced emphysema. 2. Left basilar opacities have partially cleared and there is increasing nodularity at the right lung base as compared to 04/03/2022. Continued radiographic follow-up to complete resolution is recommended.. Prior to admission the patient was given a DuoNeb treatment but was still requiring increased oxygen demand. At the time of the exam the patient sitting in bed no mild distress with her sitting bedside. At the start of my exam I turned her O2 back to her baseline 3L and she remained stable throughout my exam. Her was sitting bedside and also provided some of the history. They state that she started developing chills, body aches, increased cough, SOB, and hypoxia on her baseline 3L. Her notes that she was usually stable on her 3L at rest but would quickly become hypoxic with any exertion. She continued to take her Trelegy and prn DuoNebs as prescribed bu this did not improve her complaints. She has also been experiencing intermittent right lower chest pain, especially with deep inspiration. She has also been experiencing non-blood diarrhea and poor oral intake during the past 3 days. She has no other complaints at the time of my exam. I confirmed that she is a DNR/DNI and her would make decisions for her if she could not make them herself. Please refer to Dr. Spain's attestation for any changes to the treatment plan Allergies Allergy/AdvReac Type Severity Reaction Status Date / Time bupropion [From Wellbutrin] Allergy Severe Unknown Verified 04/03/22 00:06 sulfamethoxazole Allergy Severe THROAT AND Verified 04/03/22 00:06 EARS SWELL trimethoprim Allergy Severe THROAT AND Verified 04/03/22 00:06 EARS SWELL codeine AdvReac Intermediate STOMACH Verified 04/03/22 00:06 CRAMPS, "KNOCKS ME OUT FOR DAYS" Home Medications Medication Instructions Recorded Confirmed Type aspirin 81 mg tablet,delayed 81 mg PO Q2D 04/25/19 05/07/22 History release (Adult Low Dose Aspirin) cholecalciferol (vitamin D3) 25 25 mcg PO DAILY 03/26/21 05/07/22 History mcg (1,000 unit) capsule Oxygen Home #1 ea 06/05/21 05/07/22 Rx fluticasone fur. 100 mcg-umeclid 1 inh inhalation QAM #60 ea 07/15/21 05/07/22 Rx 62.5 mcg-vilant 25 mcg inhalat.powder (Trelegy Ellipta) ipratropium 20 mcg-albuterol 100 1 puff inhalation QID PRN 07/15/21 05/07/22 Rx mcg/actuation mist for inhalation SOB/WHEEZING #4 grams (Combivent Respimat) albuterol sulfate 90 mcg/actuation 1 inh inhalation QID PRN shortness 10/10/21 05/07/22 Rx aerosol inhaler of breath or wheezing #8.5 grams lisinopril 5 mg tablet 2.5 mg PO DAILY #90 tabs 10/10/21 05/07/22 Rx atorvastatin 40 mg tablet 40 mg PO HS #90 tabs 11/24/21 05/07/22 Rx buspirone 5 mg tablet 5 mg PO TID #270 tabs 01/07/22 05/07/22 Rx escitalopram oxalate 20 mg tablet 20 mg PO HS #90 tabs 01/07/22 05/07/22 Rx cefpodoxime 200 mg tablet 200 mg PO BID 10 days #20 tabs 03/27/22 05/07/22 Rx alprazolam 0.25 mg tablet 0.125 - 0.25 mg PO DAILY PRN 03/31/22 05/07/22 Rx anxiety 30 days #30 tabs ascorbic acid 1,000 1 ea PO DAILY 04/03/22 05/07/22 History mm-cbnquamdbxlg-jkjyxrkf powder effervescent pack (Emergen-C) azithromycin 250 mg tablet 250 mg PO 3XWK 04/03/22 05/07/22 History mirtazapine 7.5 mg tablet 7.5 mg PO HS 04/03/22 05/07/22 History multivitamin 1 tab PO DAILY 04/03/22 05/07/22 History Past Med/Surg History Medical History Acid reflux Anxiety Aortic regurgitation Bronchitis Chronic respiratory failure with hypoxia Colitis COPD (chronic obstructive pulmonary disease) Coronary artery disease Elevated WBC count Emphysema of lung Heart disease Hypertension Myocardial infarct Nausea Pneumonia Pneumonia due to COVID-19 virus Surgical History History of appendectomy History of hysterectomy History of tonsillectomy Stented coronary artery Family History Father Lung cancer Mother , age 68 Stroke Brother Enlarged liver Grandmother (Maternal) Colorectal cancer Other Diabetes Hypertension Denies family history of Ovarian cancer Prostate cancer Breast cancer Social History Smoking Status: Never smoker Tobacco Type: Cigarettes Cigarettes Per Day: 20; Second Hand Exposure: Yes; Hx Alcohol Use: Yes Hx Substance Use: No Preferred Language: [place] Communication Ability: Effective Visual Impairment: No Limitations Hearing Ability: Normal Driver Operator Required: No Beliefs That Will Affect Care: None marital status: Current Living Situation: Spouse Current Living Situation Comment: Feels Safe at Home: Yes Assistive Devices: Oxygen - Continuous Review of Systems Review of Systems: Denies current headache, changes in vision, hearing, taste, and smell, abdominal pain, nausea, vomiting,hematemesis, melena, dysuria, hematuria, and recent falls. All systems have been reviewed and are otherwise negative. Physical Exam Physical Exam: Physical Exam: General: In mild distress, older than stated age, chronically ill appearing, malnourished HEENT: Normocephalic, atraumatic, no scleral icterus, pupils around round, symmetrical, and reactive to light, dry mucus membranes, trachea midline, no thyromegaly Chest/Pulm: No respiratory distress, symmetrical chest expansion, expiratory wheezing noted in all lung payan Card: tachycardic rate, regular rhythm, no murmurs noted Abdomen: Negative for ascites and bruising, normoactive bowel sounds, soft, non-tender to palpation throughout Musculoskeletal: Symmetrical and without signs of acute trauma, upper and lower extremities with full ROM, no atrophy, spasticity, or flaccidity Extremities: Radial, dorsalis pedis, and posterior tibial pulses are intact and symmetrical, no edema noted in the BL LE's Skin: Warm, dry, no rashes , lesions, or scars noted Neuro: Alert and oriented to person, place, month, year, and president, no focal defects, CN II-XII tested and intact, finger to nose test negative, no tremors noted Psych: No acute distress, calm and cooperative during the exam Results & Data Results & Data ([facility]) Vital Signs (Past 12 Hours) Vital Signs Temp Pulse Pulse Resp BP BP Pulse Ox 05/07/22 16:42 104 H 24 139/85 96 05/07/22 16:28 112 H 18 133/74 96 05/07/22 13:42 98 05/07/22 13:09 36.8 C 116 H 16 117/85 90 O2 Del Method O2 Flow Rate 05/07/22 16:42 Nasal Cannula 4 05/07/22 16:28 Nasal Cannula 4 05/07/22 13:42 Nasal Cannula 4 05/07/22 13:09 Nasal Cannula 4 Laboratory Results Abnormal lab results 05/07/22 05/07/22 05/07/22 Range/Units 14:50 14:50 14:52 Lymph # (Auto) 1.06 L (1.2-3.4) K/uL ABG pH (7.35-7.45) ABG pO2 (80-95) mmHg ABG HCO3 (19-24) mmol/L ABG Base Excess (-9-1.8) mEq/L BUN/Creatinine Ratio 9.9 L (10-20) Glucose 110 H (70-99(Fasting)) mg/dl Urine Protein (Negative) Urine Ketones (Negative) Urine Blood (Negative) Urine RBC (Auto) (0-4) /hpf U Epithel Cells (Auto) (0-5) /lpf Influenza Type A (PCR) Positive A* (Neg) 05/07/22 05/07/22 Range/Units 15:40 16:23 Lymph # (Auto) (1.2-3.4) K/uL ABG pH 7.47 H (7.35-7.45) ABG pO2 97 H (80-95) mmHg ABG HCO3 26 H (19-24) mmol/L ABG Base Excess 2.7 H (-9-1.8) mEq/L BUN/Creatinine Ratio (10-20) Glucose (70-99(Fasting)) mg/dl Urine Protein Trace H (Negative) Urine Ketones 2+ H (Negative) Urine Blood Trace H (Negative) Urine RBC (Auto) 10-30 H (0-4) /hpf U Epithel Cells (Auto) 5-10 H (0-5) /lpf Influenza Type A (PCR) (Neg) Diagnostic Findings Chest X-Ray 05/07/22 13:13 TWO VIEW CHEST CLINICAL HISTORY: Pneumonia. FINDINGS: PA and lateral chest radiographs are compared to study dated 04/03/2022 and correlated with chest CT dated 03/26/2022. The cardiomediastinal silhouette is unremarkable noting atherosclerotic calcification of the thoracic aorta. Advanced emphysema and chronic interstitial thickening is similar to previous. Foci of parenchymal scarring are seen throughout both lungs. Left basilar opacities have partially cleared as compared to previous. There is increasing nodularity at the lateral right lung base. No pleural effusion or pneumothorax is seen. The skeletal structures are osteopenic. The bony thorax appears intact. IMPRESSION: 1. Advanced emphysema. 2. Left basilar opacities have partially cleared and there is increasing nodularity at the right lung base as compared to 04/03/2022. Continued radiographic follow-up to complete resolution is recommended. ACT 112: Negative or not required by law. Electronically signed by: Aris Parrish M.D. 05/07/2022 2:18 PM ECG Additional Comments: Poor data quality, interpretation may be adversely affected Sinus tachycardia Nonspecific ST and T wave abnormality Abnormal ECG When compared with ECG of 02-APR-2022 23:20, Premature atrial complexes are no longer Present Code Status & VTE Plan Code Status DNR/DNI Supervising Physician Co-Signing Physician Notes Patient was seen and examined independently I discussed the case with Bruno GEORGES I reviewed pertinent past medical social family history and also the plan of care and agree with the plan of care. Patient is golds the COPD typically followed by Dr. Del Angel who presents with increasing shortness of breath found to have influenza positive testing in emergency department she does not have pneumonia on her chest x-ray but does have some nodular densities which are new. She had variable nodular densities over time and is followed under surveillance for lung cancer. She is got some resting tachycardia she will be evaluated for pulm embolism with a CT angiography plus we will get a better evaluation of her lung. She does complain of some diarrhea and a Legionella antigen test is pending but this is a send away test. She is tachycardic but regular her lungs have poor air movement but no focal wheezes or air loss her abdomen is with NABS soft and nontender extremities are without significant edema Patient will be on oral prednisone continue azithromycin started on Tamiflu Any exceptions will be noted below PG Care Time/CCT Total # of Minutes Spent Total Time Spent with Patient: Total time spent is greater than 50% in coordination of care (as documented) at patient's floor/unit and/or counseling patient: Coding Level of Care Code 45161 Initial Inpt Care Lvl 3 History Comprehensive Exam Comprehensive Medical Decision Making High Complexity Diagnoses Acute and chronic respiratory failure with hypoxia J96.21 Influenza A J10.1 COPD (chronic obstructive pulmonary disease) J44.9 COPD type: unspecified COPD Coronary artery disease I25.10 Coronary Disease-Associated Artery/Lesion type: [place] artery [place] vs. transplanted heart: [place] heart Associated angina: without angina Hypertension I10 Hypertension type: essential hypertension Acid reflux K21.9 Esophagitis presence: esophagitis presence not specified Dyslipidemia E78.5 (1) COPD (chronic obstructive pulmonary disease) COPD type: unspecified COPD Qualified Code(s): J44.9 - Chronic obstructive pulmonary disease, unspecified (2) Coronary artery disease Coronary Disease-Associated Artery/Lesion type: [place] artery [place] vs. transplanted heart: [place] heart Associated angina: without angina Qualified Code(s): I25.10 - Atherosclerotic heart disease of [place] coronary artery without angina pectoris (3) Hypertension Hypertension type: essential hypertension Qualified Code(s): I10 - Essential (primary) hypertension (4) Acid reflux Esophagitis presence: esophagitis presence not specified Qualified Code(s): K21.9 - Gastro-esophageal reflux disease without esophagitis
[2022-05-07] MEDS ORDERED: OSELTAMIVIR PHOSPHATE 75 MG CAP PO STA (17:22)
[2022-05-07] MEDS ORDERED: predniSONE 20 MG TAB PO STA (17:23)
[2022-05-07] MEDS ORDERED: LACTATED RINGER'S 1,000 ML IV SCH (17:45)
--- NOTE | 2022-05-07 17:50 | Electrocardiogram Report ---
Test Reason : Blood Pressure : / mmHG Vent. Rate : 101 BPM Atrial Rate : 101 BPM P-R Int : 152 ms QRS Dur : 066 ms QT Int : 352 ms P-R-T Axes : 083 076 083 degrees QTc Int : 456 ms Poor data quality, interpretation may be adversely affected Sinus tachycardia Nonspecific ST and T wave abnormality Abnormal ECG When compared with ECG of 02-APR-2022 23:20, Premature atrial complexes are no longer Present Confirmed by Rigoberto Chowdhury ([id number]) on 05/07/2022 5:49:59 PM Referred By: REFERRED SELF Confirmed By:Vishnu Chowdhury
[2022-05-07] MEDS ORDERED: AZITHROMYCIN 250 MG TAB PO STA (17:53)
[2022-05-07] MEDS ORDERED: PANTOprazole 40 MG TAB PO STA (17:56)
[2022-05-07] MEDS ORDERED: OPTIRAY 320 500ml IV ONE (18:52)
--- NOTE | 2022-05-07 19:16 | CT Scan Report ---
CT ANGIOGRAM OF THE CHEST CLINICAL HISTORY: Hypoxia. COMPARISON STUDY: Chest x-ray dated 05/07/2022. Prior chest CT scans, most recently dated 03/26/2022 . TECHNIQUE: Following the IV administration of 112 cc of Optiray 320, CT angiogram of the chest was pe rformed from the upper abdomen to the thoracic inlet utilizing the pulmonary embolus protocol. Images are reviewed in the axial, sagittal, and coronal planes. 3-D MIPS images are created and assessed. I V contrast was administered without complication. A dose lowering technique was utilized adhering to the principles of ALARA. CT DOSE: 244.11 mGy.cm FINDINGS: Thyroid: Imaged portions of the thyroid gland are normal in size and attenuation. Thoracic aorta: There is atherosclerotic calcification of the thoracic aorta, which is normal in virgil ivis and demonstrates standard 3-vessel arch anatomy. No dissection is seen. Pulmonary vasculature: The pulmonary trunk is normal in caliber. There are no filling defects identif ied in main, lobar, or segmental pulmonary branches to suggest pulmonary embolus. Heart: The heart is normal in size and without pericardial effusion. The coronary arteries are densel y calcified. Lungs and pleural spaces: Advanced exam disc changes again noted. There is diffuse peribronchial thic kening. The trachea and central airways are clear. Masslike consolidation is again seen at the left l cat base. This has increased in size but is less confluent when compared to 03/26/2022 examination. M ild consolidation is now seen at the right lung base. No pleural effusion is identified. Foci of prob able scarring are again seen throughout both lungs. There are scattered calcified granulomas. A 7 mm irregular nodular density in the left lower lobe along the major fissure is again seen on image #161. Additional nodular densities in the left upper lobe on image #194 and in the left lower lobe on imag e #164 are also similar to previous. Mediastinum: There are mildly enlarged AP window nodes. A node on image #176 measures 1.3 x 0.9 cm. A subcarinal node measures 1.4 cm short axis. A superior mediastinal node posterior to the esophagus h as increased in size. This measures 1.7 x 1.2 cm as seen on image #260. Abby: Prominent hilar nodes measure up to 9 mm in short axis. Axillae: There is no axillary lymphadenopathy. Upper abdomen: There is a small hiatal hernia. Partially visualized upper abdominal viscera is otherw ise within normal limits. Skeletal structures: The skeletal structures are osteopenic. No lytic or blastic bony lesions are see n. IMPRESSION: 1. There is no evidence of pulmonary embolus in the main, lobar, or segmental pulmonary arteries. 2. Advanced emphysema. 3. Airspace consolidation at the left lung base has increased in size but shows decreased confluence when compared to 03/26/2022. Mild consolidation at the right lung base has also increased from previo us. Correlate clinically for evidence of pneumonia/aspiration nidus. A follow-up chest CT in 3-4 kendra hs time is recommended to document complete resolution. 4. Additional irregular subcentimeter nodules are again seen in the left lung. Continued attention at follow-up is recommended. 5. Diffuse peribronchial thickening suggests bronchitis/reactive airway disease. 6. Mediastinal lymph nodes have increased in size from previous and may be reactive. These can also b e recessed at follow-up. 7. Additional findings as above. ACT 112: Negative or not required by law. Electronically signed by: Aris Parrish M.D. 05/07/2022 7:14 PM
[2022-05-07] MEDS: ASPIRIN 81 MG ECTAB PO SCH (19:58)
[2022-05-07] MEDS: ENOXAPARIN INJ 40 MG/0.4 ML SYR SQ SCH (19:59)
[2022-05-07] MEDS: busPIRone 5 MG TAB PO SCH (21:32)
[2022-05-07] MEDS: ESCITALOPRAM OXALATE 20 MG TAB PO SCH (21:32)
[2022-05-07] MEDS: ATORVASTATIN 40 MG TAB PO SCH (21:32)
[2022-05-07] MEDS: MIRTAZAPINE TAB 15 MG TAB PO SCH (21:32)
[2022-05-08 04:26] LABS: Hematocrit (blood only) 35.8 % (34.1-44.9); Mean Corpuscular Hemoglobin 30.5 pg (25.0-34.0); Mean Corpuscular Hgb Conc 33.5 g/dL (32.0-36.0); Mean Corpuscular Volume 90.9 fL (80.0-100.0); Mean Platelet Volume 9.4 fL (9.4-12.3); Platelet Count 230 K/uL (130-400); RDW Coefficient of Variation 13.4 % (11.5-14.5); RDW Standard Deviation 45.2 fL (36.4-46.3); Red Blood Count 3.94 M/uL (3.93-5.22); White Blood Count 8.69 K/ul (4.8-10.8)
[2022-05-08 04:49] LABS: BUN Creatinine Ratio 13.5 (10-20); Calcium 8.4 mg/dl (8.5-10.1); Creatinine Clr Calc Pharmacy 58.7 ml/min; Est GFR (African American) 99.9 ml/min; Est GFR (Non-African American) 86.2 ml/min; Magnesium 1.8 mg/dl (1.7-2.4); Potassium 4.4 mmol/L (3.5-5.1)
--- NOTE | 2022-05-08 08:07 | Hospitalist Progress Note ---
Date of Service May 08, 2022 Assessment & Plan (1) Acute and chronic respiratory failure with hypoxia: Plan: Admitted w/ 3days of URI symptoms, with increased cough/sputum production, hypoxic to the 80s at home on her usual 2L NC. Follows with pulm, severe COPD with emphysema, Gold class D. On trelegy with prn dounebs/Combivent and Azithromycin M-W-F at home. Participating in pulm rehab, refused lung transplant in past. Family hx lung ca and under surveillance. Had COVID May 2021, and then in Jun 2021 dx and tx Pneumonia and d/c on Azithro/Cefdinir COVID/RSV/Flu B negative on admit, however found to be + for influenza A On 2L typically at home at rest, 3L with ambulation. Reports turning up O2 at home to 4L w/ SpO2 <83% Change in sputum production/cough, and felt initially COPD exacerbation, found to be +flu A on testing (COVID/RSV/FluB negative) and started on tamiflu BID CTA chest w/o PE, but does show some consolidative process R/L lung bases, checking sputum cx if able to obtain (reporting increased sputum production), continue flutter valve/incentive spirometer Check MRSA nasal swab -- NEGATIVE Discussed with pulm, no need for formal consult. Agreed to continue prednisone 40mg x 5 days, azithromycin Procal negative but if concerns could add Zosyn for coverage aspiration pneumonia -- added Speech consult for eval aspiration -- no aspiration. can do video swallow on Wednesday (no staffing this weekend) if remains inpatient vs arranging outpatient Patient did report increased reflux symptoms, not on H2 or PPI at home On protonix daily while inpatient -- consider continuing this at d/c to prevent issues. Increase to BID if needed No incentive spirometer or flutter valve w/ patient during exam -- asked RN to provide Sputum culture ordered -- asked RN to provide cup for sample Inhalers continued Will schedule Levalbuterol nebs (patient reports having inhalers at home, does not appear to have nebulizers on home med list -- will need to inquire/send rx at d/c if needed) Ordered 1gm IV mag given wheezing to see if any benefit as well Legionella also pending given reports of diarrhea/abd pain (however could be from +influenza) Would 2step/ambulatory pulse ox prior to dc to demonstrate needs B/L SCDs and Lovenox for DVT prophylaxis (2) Influenza A: Plan: See acute on chronic hypoxic respiratory failure Isolation precautions supportive care supplemental O2 to maintain sats (3) COPD (chronic obstructive pulmonary disease): Plan: See acute on chronic hypoxic respiratory failure will check Vit D w/ AM labs as well (4) Coronary artery disease: Plan: Continue aspirin Q2D (5) Hypertension: Plan: Continue lisinopril BP 133/76 (6) Acid reflux: Plan: pantoprazole while admitted for ulcer prophylaxis as above, patient reports reflux at home at baseline but not on therap would continue PPI vs H2 josesito at d/c speech consulted as above (7) Dyslipidemia: Plan: Continue statin Plan continued inpatient stay added coverage for aspiration pneumonia sputum cx ordered nebs scheduled continue prednisone/azithro as well can consult pulm if needed but has been discussed with Dr Hinkle today. Admission and Anticipated Discharge Date Admission Date: May 07, 2022 Supervising Physician Co-Signing Physician Notes I did not personally interview or examine the patient. I did review assessment and plan with RACH Centeno and agree with the following exceptions: none Subjective evaluated this afternoon, had just been transferred to room 283 from the ER. On 4L NC, states breathing slightly better than when she came in. Still with sputum production/yellow/darkened color. Sputum cx discussed if able to produce. Concerns about aspiration, she states she does feel like she has a lot of reflux at times, not on H2 josesito or PPI at baseline. Sometimes could endorse coughing and feeling like something going down wrong pipe but denies any true dysphagia. Follows with Dr Pinzon from [facility] pulmonology, just did pulmonary rehab. Using nebulizers at home. Developed URI symptoms about 3 days ago, positive for influenza. She notes she tends to get pneumonia frequently, got COVID earlier in the year and then pnuemonia the next month. On Azithro M-W-F at home, but on daily. MRSA nasal swab negative and discussed given lung exam and imaging concerns for pneumonia and placed on Zosyn with her azithro to cover for aspiration as discussed with pulm this morning. Asked RN to provide incentive spirometer/flutter valve. Of note, patient on 2L at rest typically and 3L w/ ambulation. She notes when her O2 drops below 83 she bumps it up and had been using 4L at home, currently on w/ sat 94% No fever/chills, no chest pain. Appetite improved from day prior. Discussed abx for pneumonia, incentive spirometer/flutter valve, nebs, and sputum culture and monitoring on repeat eval. Questions/concerns addressed at this time. Review of Systems Review of Systems: All systems reviewed & are unremarkable except as noted in HPI & below Physical Exam Physical Exam: General: chronically ill appearing female sitting up in bed getting dressed, appears much older than stated age, malnourished appearing, no acute distress HEENT: head normocephalic, atraumatic, pupils equal in size, mm slightly dry, trachea midline Resp: wheezing throughout, end expiratory, crackles in the bases, on 4L [place] CV: RRR, no m/r/g, no pitting edema/calf tenderness GI: +BS, soft/NT : no cuevas MSK/Neuro: frail, but no focal deficits, no slurred speech/facial droop Skin: cool, dry Psych: AOx3, cooperative and pleasant Results & Data Results & Data ([facility]) Vital Signs (Past 12 Hours) Vital Signs Pulse Pulse Resp BP BP Pulse Ox O2 Del Method 05/08/22 03:00 76 20 106/59 L 92 Nasal Cannula 05/07/22 23:43 82 22 101/60 95 Nasal Cannula O2 Flow Rate 05/08/22 03:00 2 05/07/22 23:43 3 Laboratory Results 05/08/22 05/08/22 05/07/22 Range/Units 04:15 04:15 16:23 WBC 8.69 (4.8-10.8) K/ul RBC 3.94 (3.93-5.22) M/uL Hgb 12.0 (12.0-16.0) g/dl Hct 35.8 (34.1-44.9) % MCV 90.9 (80.0-100.0) fL MCH 30.5 (25.0-34.0) pg MCHC 33.5 (32.0-36.0) g/dL RDW Std Deviation 45.2 (36.4-46.3) fL RDW Coeff of Luis 13.4 (11.5-14.5) % Plt Count 230 (130-400) K/uL MPV 9.4 (9.4-12.3) fL Immature Gran % (Auto) % Neut % (Auto) % Lymph % (Auto) % [place] % (Auto) % Eos % (Auto) % Baso % (Auto) % Neut # (Auto) (1.4-6.5) K/uL Lymph # (Auto) (1.2-3.4) K/uL [place] # (Auto) (0.24-0.82) K/uL Eos # (Auto) (0-0.50) K/uL Baso # (Auto) (0-0.2) K/uL Immature Gran # (Auto) (0.00-0.02) K/uL ABG pH (7.35-7.45) ABG pCO2 (35-46) mmHg ABG pO2 (80-95) mmHg ABG HCO3 (19-24) mmol/L ABG O2 Saturation (90-95) % ABG Base Excess (-9-1.8) mEq/L [place] Test (Pos) Oxygen Given Sodium 138 (136-145) mmol/L Potassium 4.4 (3.5-5.1) mmol/L Chloride 102 (98-107) mmol/L Carbon Dioxide 28 (21-32) mmol/L Anion Gap 8 (3-11) BUN 10 (6-23) mg/dl Creatinine 0.74 (0.6-1.2) mg/dl Est Cr Clr Drug Dosing 58.7 Est GFR ( Amer) 99.9 ml/min Est GFR (Non-Af Amer) 86.2 ml/min BUN/Creatinine Ratio 13.5 (10-20) Glucose 165 H (70-99(Fasting)) mg/dl Calcium 8.4 L (8.5-10.1) mg/dl Magnesium 1.8 (1.7-2.4) mg/dl Total Bilirubin (0.2-1.0) mg/dl AST (13-39) U/L ALT (7-52) U/L Alkaline Phosphatase (34-104) U/L Troponin I High Sens (0-14) pg/ml B-Natriuretic Peptide (0-100) pg/ml Total Protein (6.0-8.3) gm/dl Albumin (3.4-5.0) gm/dl Globulin (2.5-4.0) gm/dl Albumin/Globulin Ratio (0.9-2) Procalcitonin (0-0.5) ng/ml Urine Color Yellow Urine Appearance Clear (Clear) Urine pH 6.5 (4.5-7.5) Ur Specific [place] 1.015 (1.000-1.030) Urine Protein Trace H (Negative) Urine Glucose (UA) Negative (Negative) Urine Ketones 2+ H (Negative) Urine Blood Trace H (Negative) Urine Nitrite Negative (Negative) Urine Bilirubin Negative (Negative) Urine Urobilinogen Negative (Negative) Ur Leukocyte Esterase Negative (Negative) Urine WBC (Auto) 1-5 (0-5) /hpf Urine RBC (Auto) 10-30 H (0-4) /hpf U Hyaline Cast (Auto) 1-5 (0-5) /lpf U Epithel Cells (Auto) 5-10 H (0-5) /lpf Urine Bacteria (Auto) Negative (Negative) SARS-CoV-2 (PCR) (Negative) Influenza Type A (PCR) (Neg) Influenza Type B (PCR) (Neg) Urine Legionella Ag RSV (RT-PCR) (Neg) 05/07/22 05/07/22 05/07/22 Range/Units 16:23 15:40 14:52 WBC (4.8-10.8) K/ul RBC (3.93-5.22) M/uL Hgb (12.0-16.0) g/dl Hct (34.1-44.9) % MCV (80.0-100.0) fL MCH (25.0-34.0) pg MCHC (32.0-36.0) g/dL RDW Std Deviation (36.4-46.3) fL RDW Coeff of Luis (11.5-14.5) % Plt Count (130-400) K/uL MPV (9.4-12.3) fL Immature Gran % (Auto) % Neut % (Auto) % Lymph % (Auto) % [place] % (Auto) % Eos % (Auto) % Baso % (Auto) % Neut # (Auto) (1.4-6.5) K/uL Lymph # (Auto) (1.2-3.4) K/uL [place] # (Auto) (0.24-0.82) K/uL Eos # (Auto) (0-0.50) K/uL Baso # (Auto) (0-0.2) K/uL Immature Gran # (Auto) (0.00-0.02) K/uL ABG pH 7.47 H (7.35-7.45) ABG pCO2 36 (35-46) mmHg ABG pO2 97 H (80-95) mmHg ABG HCO3 26 H (19-24) mmol/L ABG O2 Saturation 95.0 (90-95) % ABG Base Excess 2.7 H (-9-1.8) mEq/L [place] Test Pos (Pos) Oxygen Given 4L Sodium (136-145) mmol/L Potassium (3.5-5.1) mmol/L Chloride (98-107) mmol/L Carbon Dioxide (21-32) mmol/L Anion Gap (3-11) BUN (6-23) mg/dl Creatinine (0.6-1.2) mg/dl Est Cr Clr Drug Dosing Est GFR ( Amer) ml/min Est GFR (Non-Af Amer) ml/min BUN/Creatinine Ratio (10-20) Glucose (70-99(Fasting)) mg/dl Calcium (8.5-10.1) mg/dl Magnesium (1.7-2.4) mg/dl Total Bilirubin (0.2-1.0) mg/dl AST (13-39) U/L ALT (7-52) U/L Alkaline Phosphatase (34-104) U/L Troponin I High Sens (0-14) pg/ml B-Natriuretic Peptide (0-100) pg/ml Total Protein (6.0-8.3) gm/dl Albumin (3.4-5.0) gm/dl Globulin (2.5-4.0) gm/dl Albumin/Globulin Ratio (0.9-2) Procalcitonin (0-0.5) ng/ml Urine Color Urine Appearance (Clear) Urine pH (4.5-7.5) Ur Specific [place] (1.000-1.030) Urine Protein (Negative) Urine Glucose (UA) (Negative) Urine Ketones (Negative) Urine Blood (Negative) Urine Nitrite (Negative) Urine Bilirubin (Negative) Urine Urobilinogen (Negative) Ur Leukocyte Esterase (Negative) Urine WBC (Auto) (0-5) /hpf Urine RBC (Auto) (0-4) /hpf U Hyaline Cast (Auto) (0-5) /lpf U Epithel Cells (Auto) (0-5) /lpf Urine Bacteria (Auto) (Negative) SARS-CoV-2 (PCR) NEGATIVE (Negative) Influenza Type A (PCR) Positive A* (Neg) Influenza Type B (PCR) Negative (Neg) Urine Legionella Ag Pending RSV (RT-PCR) Negative (Neg) 05/07/22 05/07/22 05/07/22 Range/Units 14:50 14:50 14:50 WBC (4.8-10.8) K/ul RBC (3.93-5.22) M/uL Hgb (12.0-16.0) g/dl Hct (34.1-44.9) % MCV (80.0-100.0) fL MCH (25.0-34.0) pg MCHC (32.0-36.0) g/dL RDW Std Deviation (36.4-46.3) fL RDW Coeff of Luis (11.5-14.5) % Plt Count (130-400) K/uL MPV (9.4-12.3) fL Immature Gran % (Auto) % Neut % (Auto) % Lymph % (Auto) % [place] % (Auto) % Eos % (Auto) % Baso % (Auto) % Neut # (Auto) (1.4-6.5) K/uL Lymph # (Auto) (1.2-3.4) K/uL [place] # (Auto) (0.24-0.82) K/uL Eos # (Auto) (0-0.50) K/uL Baso # (Auto) (0-0.2) K/uL Immature Gran # (Auto) (0.00-0.02) K/uL ABG pH (7.35-7.45) ABG pCO2 (35-46) mmHg ABG pO2 (80-95) mmHg ABG HCO3 (19-24) mmol/L ABG O2 Saturation (90-95) % ABG Base Excess (-9-1.8) mEq/L [place] Test (Pos) Oxygen Given Sodium 139 (136-145) mmol/L Potassium 3.9 (3.5-5.1) mmol/L Chloride 100 (98-107) mmol/L Carbon Dioxide 30 (21-32) mmol/L Anion Gap 9 (3-11) BUN 7 (6-23) mg/dl Creatinine 0.71 (0.6-1.2) mg/dl Est Cr Clr Drug Dosing Not Reportable Est GFR ( Amer) 105.1 ml/min Est GFR (Non-Af Amer) 90.7 ml/min BUN/Creatinine Ratio 9.9 L (10-20) Glucose 110 H (70-99(Fasting)) mg/dl Calcium 8.9 (8.5-10.1) mg/dl Magnesium 1.8 (1.7-2.4) mg/dl Total Bilirubin 0.4 (0.2-1.0) mg/dl AST 38 (13-39) U/L ALT 30 (7-52) U/L Alkaline Phosphatase 87 (34-104) U/L Troponin I High Sens 8.3 (0-14) pg/ml B-Natriuretic Peptide 61 (0-100) pg/ml Total Protein 7.1 (6.0-8.3) gm/dl Albumin 4.3 (3.4-5.0) gm/dl Globulin 2.8 (2.5-4.0) gm/dl Albumin/Globulin Ratio 1.5 (0.9-2) Procalcitonin < 0.05 (0-0.5) ng/ml Urine Color Urine Appearance (Clear) Urine pH (4.5-7.5) Ur Specific [place] (1.000-1.030) Urine Protein (Negative) Urine Glucose (UA) (Negative) Urine Ketones (Negative) Urine Blood (Negative) Urine Nitrite (Negative) Urine Bilirubin (Negative) Urine Urobilinogen (Negative) Ur Leukocyte Esterase (Negative) Urine WBC (Auto) (0-5) /hpf Urine RBC (Auto) (0-4) /hpf U Hyaline Cast (Auto) (0-5) /lpf U Epithel Cells (Auto) (0-5) /lpf Urine Bacteria (Auto) (Negative) SARS-CoV-2 (PCR) (Negative) Influenza Type A (PCR) (Neg) Influenza Type B (PCR) (Neg) Urine Legionella Ag RSV (RT-PCR) (Neg) 05/07/22 Range/Units 14:50 WBC 6.87 (4.8-10.8) K/ul RBC 4.41 (3.93-5.22) M/uL Hgb 13.3 (12.0-16.0) g/dl Hct 40.3 (34.1-44.9) % MCV 91.4 (80.0-100.0) fL MCH 30.2 (25.0-34.0) pg MCHC 33.0 (32.0-36.0) g/dL RDW Std Deviation 46.1 (36.4-46.3) fL RDW Coeff of Luis 13.6 (11.5-14.5) % Plt Count 251 (130-400) K/uL MPV 9.5 (9.4-12.3) fL Immature Gran % (Auto) 0.3 % Neut % (Auto) 80.4 % Lymph % (Auto) 15.4 % [place] % (Auto) 3.9 % Eos % (Auto) 0.0 % Baso % (Auto) 0.0 % Neut # (Auto) 5.52 (1.4-6.5) K/uL Lymph # (Auto) 1.06 L (1.2-3.4) K/uL [place] # (Auto) 0.27 (0.24-0.82) K/uL Eos # (Auto) 0.00 (0-0.50) K/uL Baso # (Auto) 0.00 (0-0.2) K/uL Immature Gran # (Auto) 0.02 (0.00-0.02) K/uL ABG pH (7.35-7.45) ABG pCO2 (35-46) mmHg ABG pO2 (80-95) mmHg ABG HCO3 (19-24) mmol/L ABG O2 Saturation (90-95) % ABG Base Excess (-9-1.8) mEq/L [place] Test (Pos) Oxygen Given Sodium (136-145) mmol/L Potassium (3.5-5.1) mmol/L Chloride (98-107) mmol/L Carbon Dioxide (21-32) mmol/L Anion Gap (3-11) BUN (6-23) mg/dl Creatinine (0.6-1.2) mg/dl Est Cr Clr Drug Dosing Est GFR ( Amer) ml/min Est GFR (Non-Af Amer) ml/min BUN/Creatinine Ratio (10-20) Glucose (70-99(Fasting)) mg/dl Calcium (8.5-10.1) mg/dl Magnesium (1.7-2.4) mg/dl Total Bilirubin (0.2-1.0) mg/dl AST (13-39) U/L ALT (7-52) U/L Alkaline Phosphatase (34-104) U/L Troponin I High Sens (0-14) pg/ml B-Natriuretic Peptide (0-100) pg/ml Total Protein (6.0-8.3) gm/dl Albumin (3.4-5.0) gm/dl Globulin (2.5-4.0) gm/dl Albumin/Globulin Ratio (0.9-2) Procalcitonin (0-0.5) ng/ml Urine Color Urine Appearance (Clear) Urine pH (4.5-7.5) Ur Specific [place] (1.000-1.030) Urine Protein (Negative) Urine Glucose (UA) (Negative) Urine Ketones (Negative) Urine Blood (Negative) Urine Nitrite (Negative) Urine Bilirubin (Negative) Urine Urobilinogen (Negative) Ur Leukocyte Esterase (Negative) Urine WBC (Auto) (0-5) /hpf Urine RBC (Auto) (0-4) /hpf U Hyaline Cast (Auto) (0-5) /lpf U Epithel Cells (Auto) (0-5) /lpf Urine Bacteria (Auto) (Negative) SARS-CoV-2 (PCR) (Negative) Influenza Type A (PCR) (Neg) Influenza Type B (PCR) (Neg) Urine Legionella Ag RSV (RT-PCR) (Neg) Diagnostic Findings Chest X-Ray 05/07/22 13:13 TWO VIEW CHEST CLINICAL HISTORY: Pneumonia. FINDINGS: PA and lateral chest radiographs are compared to study dated 04/03/2022 and correlated with chest CT dated 03/26/2022. The cardiomediastinal silhouette is unremarkable noting atherosclerotic calcification of the thoracic aorta. Advanced emphysema and chronic interstitial thickening is similar to previous. Foci of parenchymal scarring are seen throughout both lungs. Left basilar opacities have partially cleared as compared to previous. There is increasing nodularity at the lateral right lung base. No pleural effusion or pneumothorax is seen. The skeletal structures are osteopenic. The bony thorax appears intact. IMPRESSION: 1. Advanced emphysema. 2. Left basilar opacities have partially cleared and there is increasing nodularity at the right lung base as compared to 04/03/2022. Continued radiographic follow-up to complete resolution is recommended. ACT 112: Negative or not required by law. Electronically signed by: Aris Parrish M.D. 05/07/2022 2:18 PM Chest CTA 05/07/22 17:36 CT ANGIOGRAM OF THE CHEST CLINICAL HISTORY: Hypoxia. COMPARISON STUDY: Chest x-ray dated 05/07/2022. Prior chest CT scans, most recently dated 03/26/2022. TECHNIQUE: Following the IV administration of 112 cc of Optiray 320, CT angiogram of the chest was performed from the upper abdomen to the thoracic inlet utilizing the pulmonary embolus protocol. Images are reviewed in the axial, sagittal, and coronal planes. 3-D MIPS images are created and assessed. IV contrast was administered without complication. A dose lowering technique was utilized adhering to the principles of ALARA. CT DOSE: 244.11 mGy.cm FINDINGS: Thyroid: Imaged portions of the thyroid gland are normal in size and attenuation. Thoracic aorta: There is atherosclerotic calcification of the thoracic aorta, which is normal in caliber and demonstrates standard 3-vessel arch anatomy. No dissection is seen. Pulmonary vasculature: The pulmonary trunk is normal in caliber. There are no filling defects identified in main, lobar, or segmental pulmonary branches to suggest pulmonary embolus. Heart: The heart is normal in size and without pericardial effusion. The coronary arteries are densely calcified. Lungs and pleural spaces: Advanced exam disc changes again noted. There is diffuse peribronchial thickening. The trachea and central airways are clear. Masslike consolidation is again seen at the left lung base. This has increased in size but is less confluent when compared to 03/26/2022 examination. Mild consolidation is now seen at the right lung base. No pleural effusion is identified. Foci of probable scarring are again seen throughout both lungs. There are scattered calcified granulomas. A 7 mm irregular nodular density in the left lower lobe along the major fissure is again seen on image #161. Additional nodular densities in the left upper lobe on image #194 and in the left lower lobe on image #164 are also similar to previous. Mediastinum: There are mildly enlarged AP window nodes. A node on image #176 measures 1.3 x 0.9 cm. A subcarinal node measures 1.4 cm short axis. A superior mediastinal node posterior to the esophagus has increased in size. This measures 1.7 x 1.2 cm as seen on image #260. Abby: Prominent hilar nodes measure up to 9 mm in short axis. Axillae: There is no axillary lymphadenopathy. Upper abdomen: There is a small hiatal hernia. Partially visualized upper abdominal viscera is otherwise within normal limits. Skeletal structures: The skeletal structures are osteopenic. No lytic or blastic bony lesions are seen. IMPRESSION: 1. There is no evidence of pulmonary embolus in the main, lobar, or segmental pulmonary arteries. 2. Advanced emphysema. 3. Airspace consolidation at the left lung base has increased in size but shows decreased confluence when compared to 03/26/2022. Mild consolidation at the right lung base has also increased from previous. Correlate clinically for evidence of pneumonia/aspiration nidus. A follow-up chest CT in 3-4 months time is recommended to document complete resolution. 4. Additional irregular subcentimeter nodules are again seen in the left lung. Continued attention at follow-up is recommended. 5. Diffuse peribronchial thickening suggests bronchitis/reactive airway disease. 6. Mediastinal lymph nodes have increased in size from previous and may be reactive. These can also be recessed at follow-up. 7. Additional findings as above. ACT 112: Negative or not required by law. Electronically signed by: Aris Parrish M.D. 05/07/2022 7:14 PM PG Care Time/CCT Total # of Minutes Spent Total Time Spent with Patient: Total time spent is greater than 50% in coordination of care (as documented) at patient's floor/unit and/or counseling patient: Coding Level of Care Code 23113 Subseq Hosp Care Lvl 3 Diagnoses Acute and chronic respiratory failure with hypoxia J96.21 Influenza A J10.1 COPD (chronic obstructive pulmonary disease) J44.9 COPD type: unspecified COPD Coronary artery disease I25.10 Associated angina: without angina Coronary Disease-Associated Artery/Lesion type: [place] artery [facility] [facility] [place] vs. transplanted heart: [place] heart Hypertension I10 Hypertension type: essential hypertension Acid reflux K21.9 Esophagitis presence: esophagitis presence not specified Dyslipidemia E78.5 (1) Coronary artery disease Associated angina: without angina Coronary Disease-Associated Artery/Lesion type: [place] artery [facility] [place] vs. transplanted heart: [place] heart Qualified Code(s): I25.10 - Atherosclerotic heart disease of [place] coronary artery without angina pectoris (2) COPD (chronic obstructive pulmonary disease) COPD type: unspecified COPD Qualified Code(s): J44.9 - Chronic obstructive pulmonary disease, unspecified (3) Acid reflux Esophagitis presence: esophagitis presence not specified Qualified Code(s): K21.9 - Gastro-esophageal reflux disease without esophagitis (4) Hypertension Hypertension type: essential hypertension Qualified Code(s): I10 - Essential (primary) hypertension
[2022-05-08] MEDS ORDERED: OSELTAMIVIR PHOSPHATE 75 MG CAP PO SCH (09:00)
[2022-05-08] MEDS: CHOLECALCIFEROL 1,000 UNITS 25 MCG TAB PO SCH (09:14)
[2022-05-08] MEDS: AZITHROMYCIN 250 MG TAB PO SCH (09:14)
[2022-05-08] MEDS: PANTOprazole 40 MG TAB PO SCH (09:15)
[2022-05-08] MEDS: lisinopril 2.5 MG TAB PO SCH (09:15)
[2022-05-08] MEDS: predniSONE 20 MG TAB PO SCH (09:15)
[2022-05-08] MEDS: busPIRone 5 MG TAB PO SCH ×3 (09:29→23:00)
[2022-05-08] MEDS: UMECLIDINIUM/VILANTEROL 62.5/25MCG 7 PUFFS/INHALER INH SCH (09:29)
[2022-05-08] MEDS: FLUTICASONE FUROATE 100MCG 14 PUFFS/INHALER INH SCH (09:30)
[2022-05-08] MEDS ORDERED: MAGNESIUM SULFATE / D5W 1 GM/100 ML BAG IV ONE (13:25)
[2022-05-08] MEDS ORDERED: LEVALBUTEROL HCL 0.63 MG/3 ML NEB NEB SCH (19:00)
[2022-05-08] MEDS ORDERED: LEVALBUTEROL HCL 0.63 MG/3 ML NEB NEB PRN (20:22)
[2022-05-08] MEDS: ACETAMINOPHEN 500 MG TAB PO PRN (20:34)
[2022-05-08] MEDS: ALPRAZolam 0.25 MG TABLET PO PRN (20:35)
[2022-05-08] MEDS: ENOXAPARIN INJ 40 MG/0.4 ML SYR SQ SCH (20:36)
[2022-05-08] MEDS: ATORVASTATIN 40 MG TAB PO SCH (21:27)
[2022-05-08] MEDS: ESCITALOPRAM OXALATE 20 MG TAB PO SCH (21:27)
[2022-05-08] MEDS: MIRTAZAPINE TAB 15 MG TAB PO SCH (21:27)
[2022-05-08] MEDS: OSELTAMIVIR PHOSPHATE SUSP 30 MG/5 ML UDP PO SCH (21:32)
[2022-05-09 06:40] LABS: Hematocrit (blood only) 36.7 % (34.1-44.9); Hemoglobin 12.1 g/dl (12.0-16.0); Mean Corpuscular Hemoglobin 30.2 pg (25.0-34.0); Mean Corpuscular Volume 91.5 fL (80.0-100.0); Mean Platelet Volume 9.6 fL (9.4-12.3); Platelet Count 233 K/uL (130-400); RDW Coefficient of Variation 13.3 % (11.5-14.5); RDW Standard Deviation 45.1 fL (36.4-46.3); Red Blood Count 4.01 M/uL (3.93-5.22); White Blood Count 7.12 K/ul (4.8-10.8)
[2022-05-09 07:14] LABS: BUN Creatinine Ratio 28.4 (10-20); Calcium 8.3 mg/dl (8.5-10.1); Creatinine Clr Calc Pharmacy 58.7 ml/min; Est GFR (African American) 99.9 ml/min; Est GFR (Non-African American) 86.2 ml/min; Magnesium 2.1 mg/dl (1.7-2.4); Potassium 4.3 mmol/L (3.5-5.1)
--- NOTE | 2022-05-09 08:06 | Hospitalist Progress Note ---
Date of Service May 09, 2022 Assessment & Plan (1) Acute and chronic respiratory failure with hypoxia: Plan: Improving, able to wean to home oxygen at rest today. 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 Admitted with 3 days of URI symptoms, with hypoxia requiring increased oxygen compared to baseline 2LNC at rest/3LNC with ambulation. Influenza A POSITIVE on admission and started on Tamiflu BID (end date 05/12/22). MRSA NEGATIVE. BCx negative, collected 05/07. Sputum culture with moderate normal cali. Also treated as COPD exacerbation with prednisone 40mg daily and azithromycin (both to complete on 05/15/22). CTA Chest did not reveal PE, however did have LLL/RLL small consolidations (aspiration pneumonitis vs. pneumonia). Speech Therapy evaluated patient, no overt aspiration events; recommended barium swallow to see if having silent aspiration when having reflux symptoms. Procal negative, WBC normal, improving oxygenation, therefore treating as pneumonitis not aspiration pneumonia. Will continue to monitor. Nebs prn. Continue daily home inhalers. 2 step prior to discharge. (2) Influenza A: Plan: See acute on chronic hypoxic respiratory failure. Isolation precautions. supportive care and Tamiflu. (3) COPD (chronic obstructive pulmonary disease): Plan: See acute on chronic hypoxic respiratory failure. (4) Coronary artery disease: Plan: Continue aspirin Q2D. (5) Hypertension: Plan: Continue lisinopril 2.5 mg daily, hold if BP hypotensive. BP 90-100s systolic today. (6) Acid reflux: Plan: With ongoing chronic reflux symptoms not on therapy prior to admission. Continue pantoprazole for reflux and continue on discharge. Barium swallow 05/11/22. (7) Dyslipidemia: Plan: Continue statin. (8) Anxiety: Plan: Continue Lexapro and Buspar. Continue Remeron for appetite. Plan Lovenox for DVT ppx Regular diet DNR/DNI Med/Surg status Admission and Anticipated Discharge Date Admission Date: May 07, 2022 Subjective No acute events overnight. Today reports that her breathing when lying down is better, however still with some SOB with ambulation compared to her baseline. No fevers overnight, normal vitals. Denies chest pain, abdominal pain, nausea, vomiting, diarrhea. Review of Systems Review of Systems: All systems reviewed & are unremarkable except as noted in Subjective Physical Exam Constitutional: WD/WN, vitals as above + thin Respiratory: normal respiratory effort, intermittent expiratory wheeze, otherwise clear to auscultation Cardiovascular: RRR, no murmur, no edema Gastrointestinal (Abdomen): normal bowel sounds, soft, nontender, no hepatosplenomegaly Musculoskeletal: no upper or lower extremity focal strength deficits Skin: no rashes, warm and dry Psychiatric: A+Ox3, euthymic affect Results & Data Results & Data ([facility]) Vital Signs (Past 12 Hours) Vital Signs Temp Pulse Pulse Pulse Resp BP Pulse Ox 05/09/22 07:46 35.8 C L 73 16 132/68 96 05/09/22 07:23 74 18 97 05/09/22 06:05 64 05/09/22 03:27 36.5 C 67 19 106/67 100 05/08/22 23:29 05/08/22 22:38 37 C 74 16 118/73 96 05/08/22 22:08 85 05/08/22 22:28 78 05/08/22 21:26 88 05/08/22 20:51 96 H O2 Del Method O2 Flow Rate 05/09/22 07:46 Nasal Cannula 4 05/09/22 07:23 Nasal Cannula 3 05/09/22 06:05 05/09/22 03:27 Nasal Cannula 3 05/08/22 23:29 Nasal Cannula 4 05/08/22 22:38 Nasal Cannula 4 05/08/22 22:08 05/08/22 22:28 05/08/22 21:26 05/08/22 20:51 PG Care Time/CCT Total # of Minutes Spent Total Time Spent with Patient: Total time spent is greater than 50% in coordination of care (as documented) at patient's floor/unit and/or counseling patient: Coding Level of Care Code 47336 Subseq Hosp Care Lvl 2 Diagnoses Acute and chronic respiratory failure with hypoxia J96.21 Influenza A J10.1 COPD (chronic obstructive pulmonary disease) J44.9 COPD type: unspecified COPD Coronary artery disease I25.10 Associated angina: without angina Coronary Disease-Associated Artery/Lesion type: [place] artery [place] vs. transplanted heart: [place] heart Hypertension I10 Hypertension type: essential hypertension Acid reflux K21.9 Esophagitis presence: esophagitis presence not specified Dyslipidemia E78.5 Anxiety F41.9 (1) Coronary artery disease Associated angina: without angina Coronary Disease-Associated Artery/Lesion type: [place] artery [place] vs. transplanted heart: [place] heart Qualified Code(s): I25.10 - Atherosclerotic heart disease of [place] coronary artery without angina pectoris (2) COPD (chronic obstructive pulmonary disease) COPD type: unspecified COPD Qualified Code(s): J44.9 - Chronic obstructive pulmonary disease, unspecified (3) Acid reflux Esophagitis presence: esophagitis presence not specified Qualified Code(s): K21.9 - Gastro-esophageal reflux disease without esophagitis (4) Hypertension Hypertension type: essential hypertension Qualified Code(s): I10 - Essential (primary) hypertension
[2022-05-09] MEDS: AZITHROMYCIN 250 MG TAB PO SCH (08:52)
[2022-05-09] MEDS: CHOLECALCIFEROL 1,000 UNITS 25 MCG TAB PO SCH (08:52)
[2022-05-09] MEDS: predniSONE 20 MG TAB PO SCH (08:53)
[2022-05-09] MEDS: busPIRone 5 MG TAB PO SCH ×3 (08:53→20:44)
[2022-05-09] MEDS: ASPIRIN 81 MG ECTAB PO SCH (08:53)
[2022-05-09] MEDS: lisinopril 2.5 MG TAB PO SCH (08:53)
[2022-05-09] MEDS: FLUTICASONE FUROATE 100MCG 14 PUFFS/INHALER INH SCH (08:54)
[2022-05-09] MEDS: UMECLIDINIUM/VILANTEROL 62.5/25MCG 7 PUFFS/INHALER INH SCH (08:54)
[2022-05-09] MEDS: PANTOprazole 40 MG TAB PO SCH (08:55)
[2022-05-09] MEDS: OSELTAMIVIR PHOSPHATE SUSP 30 MG/5 ML UDP PO SCH ×2 (08:56→20:47)
[2022-05-09] MEDS ORDERED: LEVALBUTEROL HCL 0.63 MG/3 ML NEB NEB SCH (09:00)
[2022-05-09] MEDS: ENOXAPARIN INJ 40 MG/0.4 ML SYR SQ SCH (20:43)
[2022-05-09] MEDS: MIRTAZAPINE TAB 15 MG TAB PO SCH (20:43)
[2022-05-09] MEDS: ATORVASTATIN 40 MG TAB PO SCH (20:43)
[2022-05-09] MEDS: ACETAMINOPHEN 500 MG TAB PO PRN (20:44)
[2022-05-09] MEDS: ESCITALOPRAM OXALATE 20 MG TAB PO SCH (20:45)
[2022-05-09] MEDS: ALPRAZolam 0.25 MG TABLET PO PRN (20:45)
[2022-05-10] MEDS: FLUTICASONE FUROATE 100MCG 14 PUFFS/INHALER INH SCH (07:42)
[2022-05-10] MEDS: UMECLIDINIUM/VILANTEROL 62.5/25MCG 7 PUFFS/INHALER INH SCH (07:42)
[2022-05-10] MEDS: predniSONE 20 MG TAB PO SCH (07:43)
[2022-05-10] MEDS: AZITHROMYCIN 250 MG TAB PO SCH (07:43)
[2022-05-10] MEDS: ASPIRIN 81 MG ECTAB PO SCH (07:43)
[2022-05-10 07:44] LABS: Hematocrit (blood only) 35.2 % (34.1-44.9); Hemoglobin 11.8 g/dl (12.0-16.0); Mean Corpuscular Hemoglobin 30.3 pg (25.0-34.0); Mean Corpuscular Hgb Conc 33.5 g/dL (32.0-36.0); Mean Corpuscular Volume 90.5 fL (80.0-100.0); Mean Platelet Volume 9.8 fL (9.4-12.3); Platelet Count 261 K/uL (130-400); RDW Coefficient of Variation 13.4 % (11.5-14.5); RDW Standard Deviation 44.6 fL (36.4-46.3); Red Blood Count 3.89 M/uL (3.93-5.22); White Blood Count 5.72 K/ul (4.8-10.8)
[2022-05-10] MEDS: PANTOprazole 40 MG TAB PO SCH (07:44)
[2022-05-10] MEDS: busPIRone 5 MG TAB PO SCH ×2 (07:44→12:45)
[2022-05-10] MEDS: lisinopril 2.5 MG TAB PO SCH (07:45)
[2022-05-10] MEDS: CHOLECALCIFEROL 1,000 UNITS 25 MCG TAB PO SCH (07:45)
[2022-05-10 08:08] LABS: BUN Creatinine Ratio 32.9 (10-20); Calcium 8.4 mg/dl (8.5-10.1); Creatinine Clr Calc Pharmacy 59.5 ml/min; Est GFR (African American) 101.6 ml/min; Est GFR (Non-African American) 87.7 ml/min; Potassium 3.7 mmol/L (3.5-5.1)
[2022-05-10 08:12] LABS: Immature Granulocytes # (auto) 0.01 K/uL (0.00-0.02); Immature Granulocytes % (auto) 0.2 %; Lymphocytes # (auto) 2.28 K/uL (1.2-3.4); Lymphocytes % (auto) 39.9 %; Monocytes # (auto) 0.33 K/uL (0.24-0.82); Monocytes % (auto) 5.8 %; Neutrophils % (auto) 54.1 %
[2022-05-10] MEDS: OSELTAMIVIR PHOSPHATE SUSP 30 MG/5 ML UDP PO SCH (08:19)
--- NOTE | 2022-05-10 11:13 | Discharge Summary ---
Discharge Summary Date of Service May 10, 2022 Admission HPI Per Admitting Provider Madi Romo is a 61 year old female with a PMH significant for chronic respiratory failure normally on 2L NC, CAD, previous CO in 2012 S/P PCI X 2, HTN, dyslipidemia, and severe malnutrition who presented to [facility] ED on 05/07/22 with a chief complaint of increased oxygen requirements. Per the ED triage report, the patient stated that she thinks she has Pneumonia as she has been hypoxic in the low 80s on her baseline 2L NC, she also noted nausea and diarrhea. In the ED the patient was found to be afebrile, hemodynamically stable, saturating at 90% of 4L NC, and tachycardic at 116. Labs were remarkable for a CBC WNL, stable renal function, electrolytes, and LFTs, negative initial high sensitivity troponin, ABG showing a pH of 7.47, pCO2 of 36, pO2 of 97, and bicarb of 26, negative procal, influenza A positive, Covid/Influenza B/RSV negative. Chest xray was read as 1. Advanced emphysema. 2. Left basilar opacities have partially cleared and there is increasing nodularity at the right lung base as compared to 04/03/2022. Continued radiographic follow-up to complete resolution is recommended.. Prior to admission the patient was given a DuoNeb treatment but was still requiring increased oxygen demand. At the time of the exam the patient sitting in bed no mild distress with her sitting bedside. At the start of my exam I turned her O2 back to her baseline 3L and she remained stable throughout my exam. Her was sitting bedside and also provided some of the history. They state that she started developing chills, body aches, increased cough, SOB, and hypoxia on her baseline 3L. Her notes that she was usually stable on her 3L at rest but would quickly become hypoxic with any exertion. She continued to take her Trelegy and prn DuoNebs as prescribed bu this did not improve her complaints. She has also been experiencing intermittent right lower chest pain, especially with deep inspiration. She has also been experiencing non-blood diarrhea and poor oral intake during the past 3 days. She has no other complaints at the time of my exam. I confirmed that she is a DNR/DNI and her would make decisions for her if she could not make them herself. Admission Exam Per Admitting Provider General: In mild distress, older than stated age, chronically ill appearing, malnourished HEENT: Normocephalic, atraumatic, no scleral icterus, pupils around round, symmetrical, and reactive to light, dry mucus membranes, trachea midline, no thyromegaly Chest/Pulm: No respiratory distress, symmetrical chest expansion, expiratory wheezing noted in all lung payan Card: tachycardic rate, regular rhythm, no murmurs noted Abdomen: Negative for ascites and bruising, normoactive bowel sounds, soft, non-tender to palpation throughout Musculoskeletal: Symmetrical and without signs of acute trauma, upper and lower extremities with full ROM, no atrophy, spasticity, or flaccidity Extremities: Radial, dorsalis pedis, and posterior tibial pulses are intact and symmetrical, no edema noted in the BL LE's Skin: Warm, dry, no rashes , lesions, or scars noted Neuro: Alert and oriented to person, place, month, year, and president, no focal defects, CN II-XII tested and intact, finger to nose test negative, no tremors noted Psych: No acute distress, calm and cooperative during the exam Principal Dx & Hospital Course #1 = Principal Diagnosis (1) Acute and chronic respiratory failure with hypoxia: 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 Admitted with 3 days of URI symptoms, with hypoxia requiring increased oxygen compared to baseline 2LNC at rest/3LNC with ambulation. Influenza A POSITIVE on admission and started on Tamiflu BID (end date 05/12/22). MRSA NEGATIVE. BCx negative, collected 05/07. Sputum culture with moderate normal cali. Also treated as COPD exacerbation with prednisone 40mg daily and azithromycin (both to complete on 05/14/22). CTA Chest did not reveal PE, however did have LLL/RLL small consolidations (aspiration pneumonitis vs. pneumonia). Speech Therapy evaluated patient, no overt aspiration events; recommended barium swallow to see if having silent aspiration when having reflux symptoms. Ordered for outpatient study. Procal negative, WBC normal, improving oxygenation, therefore treating as pneumonitis not aspiration pneumonia. Nebs prn at home. Continue daily home inhalers. 2 step performed; 2LNC with rest and 3-4LNC with activity. Discharged home today with recommendations for Pulm/PCP follow up. (2) Influenza A: See acute on chronic hypoxic respiratory failure. Isolation precautions. Supportive care and Tamiflu. (3) COPD (chronic obstructive pulmonary disease): See acute on chronic hypoxic respiratory failure. (4) Coronary artery disease: Continue aspirin Q2D. (5) Hypertension: Continue lisinopril 2.5 mg daily. (6) Acid reflux: With ongoing chronic reflux symptoms not on therapy prior to admission. Continue pantoprazole for reflux on discharge. Barium swallow outpatient. (7) Dyslipidemia: Continue statin. (8) Anxiety: Continue Lexapro and Buspar. Continue Remeron for appetite. Plan Discharge home with self care/care by loved one Discharge Exam Constitutional WD/WN, vitals as above Respiratory normal respiratory effort, lungs clear to auscultation Cardiovascular RRR, no murmur, no edema Psychiatric A+Ox3, euthymic affect Updated Medication List Medication Instructions Recorded Confirmed Type aspirin 81 mg tablet,delayed 81 mg PO Q2D 04/25/19 05/07/22 History release (Adult Low Dose Aspirin) cholecalciferol (vitamin D3) 25 25 mcg PO DAILY 03/26/21 05/07/22 History mcg (1,000 unit) capsule Oxygen Home #1 ea 06/05/21 05/07/22 Rx fluticasone fur. 100 mcg-umeclid 1 inh inhalation QAM #60 ea 07/15/21 05/07/22 Rx 62.5 mcg-vilant 25 mcg inhalat.powder (Trelegy Ellipta) lisinopril 5 mg tablet 2.5 mg PO DAILY #90 tabs 10/10/21 05/07/22 Rx atorvastatin 40 mg tablet 40 mg PO HS #90 tabs 11/24/21 05/07/22 Rx buspirone 5 mg tablet 5 mg PO TID #270 tabs 01/07/22 05/07/22 Rx escitalopram oxalate 20 mg tablet 20 mg PO HS #90 tabs 01/07/22 05/07/22 Rx alprazolam 0.25 mg tablet 0.125 - 0.25 mg PO DAILY PRN 03/31/22 05/07/22 Rx anxiety 30 days #30 tabs ascorbic acid 1,000 1 ea PO DAILY 04/03/22 05/07/22 History au-acnfvosmcfzf-nxfyvrfp powder effervescent pack (Emergen-C) azithromycin 250 mg tablet 250 mg PO 3XWK 04/03/22 05/07/22 History mirtazapine 7.5 mg tablet 7.5 mg PO HS 04/03/22 05/07/22 History multivitamin 1 tab PO DAILY 04/03/22 05/07/22 History albuterol sulfate 90 mcg/actuation 1 inh inhalation QID PRN shortness 05/10/22 Rx aerosol inhaler of breath or wheezing #8.5 grams ipratropium 20 mcg-albuterol 100 1 puff inhalation QID PRN 05/10/22 Rx mcg/actuation mist for inhalation SOB/WHEEZING #4 grams (Combivent Respimat) levalbuterol HCl 0.63 mg/3 mL 0.63 mg (3 mL) NEB Q4 PRN 05/10/22 Rx solution for nebulization shortness of breath or wheezing #72 mL oseltamivir 6 mg/mL oral 30 mg (5 mL) PO BID 2 days #20 mL 05/10/22 Rx suspension (Tamiflu) pantoprazole 40 mg tablet,delayed 40 mg PO DAILY 30 days #30 tabs 05/10/22 Rx release prednisone 20 mg tablet 40 mg PO DAILY 2 days #4 tabs 05/10/22 Rx Hospital Stay Data Consultations 05/07/22 17:11 ED Decision to Admit Stat Diagnostic Imagining Performed 05/07/22 17:36 CT for pulmonary embolism PE [CT angio chest PE protocol] Stat 05/11/22 08:30 FL barium swallow Routine Pending Results Patient Have Any Pending Studies at Discharge: No Discharge Instructions Given to Patient (Per Discharging Provider) You were admitted to the hospital for evaluation and management of trouble breathing. You were found to have an infection called influenza A. This is a yearly winter-time infection that can case trouble breathing, fatigue, sore throat, cough, and body aches. As a person with COPD, you are at increased risk for getting more sick from flu every year than people without COPD. This is an illness that has a vaccine; you can talk to your doctor if you want to get the flu shot next year. When you were here, you needed a bit more oxygen at times with walking around. You can use your typical 2 liters at rest, and up to 4 liters with activity until you follow up next with Pulmonology. It was recommended that you have a barium swallow at some point in the near future. I ordered this and you should have it with your discharge paperwork. You can schedule this at your convenience to evaluate if you have having aspiration. Lastly, we recommend that you take a reflux medication called pantoprazole daily for your reflux symptoms, and follow up with Dr. Worthy to see if it is helping. We gave you steroid medicine and medicine for flu called Tamiflu. These were sent to the [facility] on [facility]. 1) Prednisone two 20 milligram tablets daily starting tomorrow until the prescription is gone. 2) Tamiflu (oseltamivir) 30 milligrams every 12 hours until gone. 3) Prescriptions were sent for refills of your Combivent Respimat. I also sent in for levalbuterol nebulizer medication in case you feel short of breath and cannot get your DuoNeb filled. 4) Pantoprazole (reflux medicine), 1 pill daily in the morning. Your primary care doctor can refill this. Total Time Total Time Spent Total Time Spent (In Minutes): 40 minutes Coding Level of Care Code D/C DAY MANAGEMENT >30 MINS Diagnoses Acute and chronic respiratory failure with hypoxia J96.21 Influenza A J10.1 COPD (chronic obstructive pulmonary disease) J44.9 COPD type: unspecified COPD Coronary artery disease I25.10 Associated angina: without angina Coronary Disease-Associated Artery/Lesion type: [place] artery [place] vs. transplanted heart: [place] heart Hypertension I10 Hypertension type: essential hypertension Acid reflux K21.9 Esophagitis presence: esophagitis presence not specified Dyslipidemia E78.5 Anxiety F41.9
== END 2022-05-10 13:25 | disposition home or self-care (01) | DRG 193 ==
LOC: ED 13:04 → SUATTDRO 17:14 → EDINP 17:14 → 2N 19:27

== ENCOUNTER 2023-05-12 17:55 | Observation (INO) ==
--- NOTE | 2023-05-12 18:05 | ED Triage Note ---
Date of Service May 12, 2023 Provider in Triage Author: Sonja Zamudio History of Present Illness This patient was briefly evaluated while in triage. An abbreviated physical exam was performed. This patient is a 62-year-old Female who presents to the ED for evaluation of positive home covid test after feeling head congestion, nasal congestion, sore throat, vomiting, diarrhea. Pt denies chest pain, states has some shob, wears 3LNC at baseline and has turned it up to 4LNC. Physical Exam Initial orders for labs and / or imaging were placed and patient was placed in the waiting area until a bed is available. Please see further documentation for the full ED course.
[2023-05-12 19:24] LABS: Adenovirus PCR Not Detected (NotDetected); Bordetella parapertussis PCR Not Detected (NotDetected); Bordetella pertussis PCR Not Detected (NotDetected); Chlamydia pneumoniae PCR Not Detected (NotDetected); Coronavirus 229E PCR Not Detected (NotDetected); Coronavirus HKU1 PCR Not Detected (NotDetected); Coronavirus NL63 PCR Not Detected (NotDetected); Coronavirus OC43PCR Not Detected (NotDetected); Human Metapneumovirus PCR Not Detected (NotDetected); Influenza A PCR Not Detected (NotDetected); Influenza B PCR Not Detected (NotDetected); Mycoplasma pneumoniae PCR Not Detected (NotDetected); Parainfluenza Virus 1 PCR Not Detected (NotDetected); Parainfluenza Virus 2 PCR Not Detected (NotDetected); Parainfluenza Virus 3 PCR Not Detected (NotDetected); Parainfluenza Virus 4 PCR Not Detected (NotDetected); Respiratory Syncytial VirusPCR Not Detected (NotDetected); Rhinovirus/Enterovirus PCR Not Detected (NotDetected)
[2023-05-12 19:29] LABS: Coronavirus CoV-2 (COVID19)PCR DETECTED (NotDetected)
--- NOTE | 2023-05-12 19:42 | XRay Report ---
SINGLE VIEW CHEST CLINICAL HISTORY: Dyspnea FINDINGS: A PA chest radiograph is compared to study dated 05/07/2022 and correlated with chest CT da marychuy 06/24/2022. The cardiomediastinal silhouette is unremarkable. Advanced emphysema and chronic inter stitial thickening is similar to previous. There are increasing airspace opacities at the left lung b ase. Foci of parenchymal scarring are seen throughout both lungs. No large pleural effusion or pneumo thorax is identified. The skeletal structures are osteopenic. The bony thorax is grossly intact. IMPRESSION: 1. Advanced emphysema. 2. There are increasing airspace opacities at the left lung base which could represent progressive at electasis versus an infectious/inflammatory pneumonitis. Clinical correlation will be required and ra diographic follow-up to resolution is recommended ACT 112: Negative or not required by law. Electronically signed by: Aris Parrish M.D. 05/12/2023 7:40 PM
[2023-05-12 19:44] LABS: Basophils # (auto) 0.02 K/uL (0.00-0.20); Basophils % (auto) 0.2 %; Eosinophils # (auto) 0.17 K/uL (0.00-0.50); Eosinophils % (auto) 1.8 %; Hematocrit (blood only) 40.2 % (37.0-47.0); Immature Granulocytes # (auto) 0.06 K/uL (0.01-0.20); Immature Granulocytes % (auto) 0.6 %; Lymphocytes # (auto) 1.74 K/uL (1.20-3.40); Lymphocytes % (auto) 18.3 %; Mean Corpuscular Hemoglobin 29.2 pg (25.0-34.0); Mean Corpuscular Hgb Conc 32.3 g/dL (32.0-36.0); Mean Corpuscular Volume 90.3 fL (80.0-100.0); Mean Platelet Volume 9.7 fL (9.4-12.4); Monocytes # (auto) 0.42 K/uL (0.11-0.59); Monocytes % (auto) 4.4 %; Neutrophils # (auto) 7.12 K/uL (1.40-6.50); Neutrophils % (auto) 74.7 %; Platelet Count 346 K/uL (130-400); RDW Coefficient of Variation 13.1 % (11.5-14.5); RDW Standard Deviation 43.5 fL (36.4-46.3); Red Blood Count 4.45 M/uL (4.20-5.40); White Blood Count 9.53 K/ul (4.8-10.8)
[2023-05-12 19:57] LABS: Alanine Aminotransferase 20 U/L (7-52); Albumin Globulin Ratio 1.4 (0.9-2); Albumin Level 4.3 gm/dl (3.4-5.0); Alkaline Phosphatase 111 U/L (34-104); Anion Gap 8 (3-11); Aspartate Aminotransferase 22 U/L (13-39); BUN Creatinine Ratio 10.3 (10-20); Bilirubin,Total 0.5 mg/dl (0.2-1.0); Blood Urea Nitrogen 6 mg/dl (6-23); Calcium 9.6 mg/dl (8.6-10.3); Carbon Dioxide 34 mmol/L (21-32); Chloride 101 mmol/L (98-107); Est GFR (African American) 112.9 ml/min; Est GFR (Non-African American) 97.4 ml/min; Globulin 3.1 gm/dl (2.5-4.0); Glucose 98 mg/dl (70-99(Fasting)); Potassium 3.8 mmol/L (3.5-5.1); Sodium 143 mmol/L (136-145); Total Protein 7.4 gm/dl (6.0-8.3)
[2023-05-12] MEDS ORDERED: DEXAMETHASONE SOD INJ 4 MG/ML VIAL IV STA (20:00)
--- NOTE | 2023-05-12 20:00 | Emergency Department Note ---
Impression & Plan COVID-19, Cough, COPD (chronic obstructive pulmonary disease), Weakness ED Provider Note NAME: RACHEL JOSHUA AGE: 62 SEX: F : 1960 ARRIVES VIA: Walk-In INFORMANT: Patient ED PROVIDER(S): Alex Solis DO CHIEF COMPLAINT: cough, congestion HPI: Patient is a 62-year-old female with past medical history of pulmonary nodules, COPD, ME, emphysema who presents to the ER for cough, congestion, and shortness of breath. Symptoms started this past . She admits to shortness of breath without moving around but notes that this is typical for her and unchanged. She has no new shortness of breath. No chest pain. No belly pain, nausea, vomiting, or diarrhea. No dysuria, urgency, or frequency. No other exacerbating or remitting factors. ADDITIONAL HISTORY OBTAINED: Per HPI Chronic Medical/Social Conditions Affecting Care: Per HPI PAST MEDICAL HISTORY:See Below PAST SURGICAL HISTORY:See Below FAMILY HISTORY:See Below SOCIAL HISTORY:See Below HOME MEDICATIONS:See Below ALLERGIES:See Below VITALS:See Below PHYSICAL EXAMINATION: GENERAL: Sitting up in bed, alert, well appearing, well nourished, no distress, non-toxic EYE EXAM: normal conjunctiva. PERRL and EOM's grossly intact. OROPHARYNX: no exudate, no erythema, lips, buccal mucosa, and tongue normal and mucous membranes are moist NECK: supple, no nuchal rigidity, no adenopathy, non-tender LUNGS: Wheezing bilaterally. Normal chest wall mechanics HEART: no murmurs, S1 normal and S2 normal ABDOMEN: abdomen soft, non-tender, normo-active bowel sounds, no masses, no rebound or guarding. UPPER EXTREMITIES: upper extremities are grossly normal. LOWER EXTREMITIES: No pitting edema. NEURO EXAM: Normal sensorium, cranial nerves II-XII grossly intact, normal speech, no gross weakness of arms, no gross weakness of legs. MEDICAL DECISION MAKING: Patient is a 62-year-old female who presents ER for the above-stated complaint. IV was established blood work is obtained. Labs show no significant leukocytosis or anemia. BMP along LFTs bilirubin was unremarkable. Procalcitonin was normal. Chest x-ray with bilateral lower lobe infiltrates which are likely secondary to COVID. She was on 3 L nasal cannula which is her baseline. She admits she has no shortness of breath now. EKG was unremarkable. was being admitted and she felt too weak and uncomfortable going home and consequently she was admitted. Urine was obtained eventually showed a UTI. Was admitted and discussed with Dr. Rashaad Ramesh for further evaluation. Consults/Care Managements Discussions: Per [facility] Triage Nursing notes reviewed. Limited review of prior medical records performed Vital Signs: reviewed and remarkable for HTN Differential diagnosis: Differential diagnoses includes but is not limited to pneumonia, bronchitis, COPD/Asthma exacerbation, pneumothorax, pulmonary embolism, congestive heart failure, acute coronary syndrome ER treatment provided: See below Diagnostics interpreted by me include EKG and cardiac monitoring as listed below: -Cardiac Monitoring: An order was placed for continuous cardiac monitoring. The monitor shows a rate of 85 with sinus rhythm. -ECG: Sinus rhythm rate 82 Normal axis No PVCs QTc [address] wave changes in the inferior leads No significant change from previous -Laboratory studies:Interpreted by me as stated above in MDM and shown below. Imaging studies: Xrays: As interpreted by me: Portable AP upright 1 view of the chest shows bilateral lower lobe infiltrates CTs show: none Procedures:none Critical Care: None Past Med/Surg History Medical History Acid reflux Anxiety Aortic regurgitation follows with Dr. Martinez Bronchitis none at present Chronic respiratory failure with hypoxia Colitis resolved per pt COPD (chronic obstructive pulmonary disease) "24% lung function left" per pt > follows with Dr. Pinzon Coronary artery disease Emphysema of lung Heart disease Hypertension Myocardial infarct November 2011 On home oxygen therapy 3LPM Pneumonia none at present Pneumonia due to COVID-19 virus May/Jun 2021 > hospitalized at [facility] Sleep apnea cpap Surgical History History of nasal surgery History of nasal cauterization History of tonsillectomy History of hysterectomy History of appendectomy Stented coronary artery Family History Father Lung cancer Mother Stroke Brother Enlarged liver Grandmother (Maternal) Colorectal cancer Other Diabetes Hypertension Denies family history of Ovarian cancer Prostate cancer Breast cancer Social History Smoking Status: Former smoker Tobacco Type: Cigarettes Age Quit Using Tobacco: 52; Cigarettes Per Day: 20; Second Hand Exposure: Yes (as kid); Do You Dip or Chew Tobacco: No; Hx Alcohol Use: No Hx Substance Use: Yes Substance Use Type Other:: medical card Preferred Language: Wolof Communication Ability: Effective Visual Impairment: No Limitations Hearing Ability: Normal Inventory Specialist Required: No Beliefs That Will Affect Care: None marital status: Current Living Situation: Spouse Current Living Situation Comment: Feels Safe at Home: Yes Seatbelt Use: always Assistive Devices: CPAP, Denture - Upper, Denture - Lower, Glasses and Oxygen - Continuous Allergies Allergies Allergy/AdvReac Type Severity Reaction Status Date / Time bupropion [From Wellbutrin] Allergy Severe Unknown Verified 04/20/23 14:30 sulfamethoxazole Allergy Severe THROAT AND Verified 04/20/23 14:30 EARS SWELL trimethoprim Allergy Severe THROAT AND Verified 04/20/23 14:30 EARS SWELL codeine AdvReac Intermediate STOMACH Verified 04/20/23 14:30 CRAMPS, "KNOCKS ME OUT FOR DAYS" Home Meds Home Medications Medication Instructions Recorded Confirmed aspirin 81 mg tablet,delayed 81 mg PO Q OTHER DAY 04/25/19 05/12/23 release (Adult Low Dose Aspirin) cholecalciferol (vitamin D3) 25 25 mcg PO QAM 03/26/21 05/12/23 mcg (1,000 unit) capsule ascorbic acid 1,000 1 ea PO DAILY PRN Cold Symptoms 04/03/22 05/12/23 [id number] powder effervescent pack (Emergen-C) Medical Marijuana 1 dose PO DIRECTED PRN Anxiety 06/22/22 05/12/23 fluticasone fur. 100 mcg-umeclid 1 ea inhalation QAM 05/12/23 05/12/23 62.5 mcg-vilant 25 mcg inhalat.powder (Trelegy Ellipta) mirtazapine 7.5 mg tablet 15 mg PO HS 05/12/23 05/12/23 Previous Rx's Medication Instructions Recorded Oxygen Home #1 ea 06/05/21 ipratropium 20 mcg-albuterol 100 1 puff inhalation QID PRN 05/10/22 mcg/actuation mist for inhalation SOB/WHEEZING #4 grams (Combivent Respimat) albuterol sulfate 90 mcg/actuation 2 inh inhalation QID PRN shortness 05/21/22 aerosol inhaler of breath or wheezing #8.5 grams pantoprazole 40 mg tablet,delayed 40 mg PO BID #180 tabs 09/23/22 release escitalopram oxalate 20 mg tablet 20 mg PO HS #90 tabs 12/01/22 atorvastatin 40 mg tablet 40 mg PO HS #90 tabs 12/07/22 azithromycin 250 mg tablet 250 mg PO 3XWK #36 tabs 12/09/22 guaifenesin 600 mg tablet, 600 mg PO BID PRN congestion #60 12/09/22 extended release 12 hr (Mucinex) tabs ipratropium 0.5 mg-albuterol 3 mg 3 ml inhalation Q6H PRN 12/09/22 (2.5 mg base)/3 mL nebulization SOB/WHEEZING #180 mL soln buspirone 5 mg tablet 5 mg PO TID #270 tabs 01/08/23 alprazolam 0.25 mg tablet 0.125 - 0.25 mg (0.5 - 1 x 0.25 04/12/23 mg) PO DAILY PRN anxiety 30 days #30 tabs doxycycline hyclate 100 mg tablet 100 mg PO BID 10 days #20 tabs 05/12/23 prednisone 50 mg tablet 50 mg PO DAILY 5 days #5 tabs 05/12/23 Results & Data (ED) Vital Signs Vital Signs - 24 hr 05/12/23 18:03 05/12/23 19:39 05/12/23 19:39 Temperature 36.2 C L Temperature Source Temporal Artery Scan Pulse Rate 90 85 91 H Pulse Rate [Apical] Pulse Rate from SpO2 Sensor 90 Pulse Rhythm Respiratory Rate 18 22 Respiratory Effort / Characteristics Non-Labored Spontaneous Respiratory Depth Normal Respiratory Pattern Regular Blood Pressure 155/87 H Blood Pressure [Right Arm] Blood Pressure Mean 109 Blood Pressure Mean [Right Arm] Pulse Oximetry 92 99 Oxygen Delivery Method Nasal Cannula Oxygen Flow Rate 4 Sepsis Recent Fever Within 48 Hours Yes Sepsis New/Unexplained Change in Mental Status N/A Sepsis Action Taken by Nursing No Action Required 05/12/23 19:46 05/12/23 19:49 05/12/23 20:00 Temperature Temperature Source Pulse Rate 87 87 Pulse Rate [Apical] 83 Pulse Rate from SpO2 Sensor 84 Pulse Rhythm Regular Respiratory Rate 18 14 20 Respiratory Effort / Characteristics Non-Labored Spontaneous Respiratory Depth Normal Respiratory Pattern Blood Pressure Blood Pressure [Right Arm] 193/107 H Blood Pressure Mean Blood Pressure Mean [Right Arm] 135 Pulse Oximetry 98 100 98 Oxygen Delivery Method Nasal Cannula Nasal Cannula Oxygen Flow Rate 3 3 Sepsis Recent Fever Within 48 Hours Sepsis New/Unexplained Change in Mental Status Sepsis Action Taken by Nursing 05/12/23 20:14 05/12/23 21:00 05/12/23 21:00 Temperature Temperature Source Pulse Rate 81 80 Pulse Rate [Apical] 90 Pulse Rate from SpO2 Sensor 79 76 Pulse Rhythm Respiratory Rate 19 14 20 Respiratory Effort / Characteristics Non-Labored Spontaneous Respiratory Depth Normal Respiratory Pattern Blood Pressure 168/101 H 156/92 H Blood Pressure [Right Arm] 156/92 H Blood Pressure Mean 123 113 Blood Pressure Mean [Right Arm] 113 Pulse Oximetry 98 97 97 Oxygen Delivery Method Nasal Cannula Oxygen Flow Rate 3 Sepsis Recent Fever Within 48 Hours Sepsis New/Unexplained Change in Mental Status Sepsis Action Taken by Nursing 05/12/23 21:56 05/12/23 23:12 05/13/23 00:10 Temperature Temperature Source Pulse Rate 92 H 83 Pulse Rate [Apical] Pulse Rate from SpO2 Sensor 88 Pulse Rhythm Respiratory Rate 16 Respiratory Effort / Characteristics Respiratory Depth Respiratory Pattern Blood Pressure 156/92 H Blood Pressure [Right Arm] Blood Pressure Mean Blood Pressure Mean [Right Arm] Pulse Oximetry 97 97 Oxygen Delivery Method Room Air Oxygen Flow Rate Sepsis Recent Fever Within 48 Hours Sepsis New/Unexplained Change in Mental Status Sepsis Action Taken by Nursing Laboratory Data 05/12/23 18:50 05/12/23 18:50 Lab Results 05/12/23 05/12/23 05/12/23 Range/Units 18:22 18:50 19:30 WBC 9.53 (4.8-10.8) K/ul RBC 4.45 (4.20-5.40) M/uL Hgb 13.0 (12.0-16.0) g/dl Hct 40.2 (37.0-47.0) % MCV 90.3 (80.0-100.0) fL MCH 29.2 (25.0-34.0) pg MCHC 32.3 (32.0-36.0) g/dL RDW Std Deviation 43.5 (36.4-46.3) fL RDW Coeff of Luis 13.1 (11.5-14.5) % Plt Count 346 (130-400) K/uL MPV 9.7 (9.4-12.4) fL Immature Gran % (Auto) 0.6 % Neut % (Auto) 74.7 % Lymph % (Auto) 18.3 % [place] % (Auto) 4.4 % Eos % (Auto) 1.8 % Baso % (Auto) 0.2 % Neut # (Auto) 7.12 H (1.40-6.50) K/uL Lymph # (Auto) 1.74 (1.20-3.40) K/uL [place] # (Auto) 0.42 (0.11-0.59) K/uL Eos # (Auto) 0.17 (0.00-0.50) K/uL Baso # (Auto) 0.02 (0.00-0.20) K/uL Immature Gran # (Auto) 0.06 (0.01-0.20) K/uL Sodium 143 (136-145) mmol/L Potassium 3.8 (3.5-5.1) mmol/L Chloride 101 (98-107) mmol/L Carbon Dioxide 34 H (21-32) mmol/L Anion Gap 8 (3-11) BUN 6 (6-23) mg/dl Creatinine 0.58 L (0.6-1.2) mg/dl Est Cr Clr Drug Dosing Not Reportable Est GFR ( Amer) 112.9 ml/min Est GFR (Non-Af Amer) 97.4 ml/min BUN/Creatinine Ratio 10.3 (10-20) Glucose 98 (70-99(Fasting)) mg/dl Calcium 9.6 (8.6-10.3) mg/dl Total Bilirubin 0.5 (0.2-1.0) mg/dl AST 22 (13-39) U/L ALT 20 (7-52) U/L Alkaline Phosphatase 111 H (34-104) U/L Total Protein 7.4 (6.0-8.3) gm/dl Albumin 4.3 (3.4-5.0) gm/dl Globulin 3.1 (2.5-4.0) gm/dl Albumin/Globulin Ratio 1.4 (0.9-2) Procalcitonin < 0.05 (0-0.5) ng/ml Urine Color Yellow Urine Appearance Clear (Clear) Urine pH 8.0 H (4.5-7.5) Ur Specific [place] 1.007 (1.000-1.030) Urine Protein Negative (Negative) Urine Glucose (UA) Negative (Negative) Urine Ketones Negative (Negative) Urine Blood Trace H (Negative) Urine Nitrite Negative (Negative) Urine Bilirubin Negative (Negative) Urine Urobilinogen Negative (Negative) Ur Leukocyte Esterase 2+ H (Negative) Urine WBC (Auto) >30 H (0-5) /hpf Urine RBC (Auto) 0-4 (0-4) /hpf U Hyaline Cast (Auto) 1-5 (0-5) /lpf U Epithel Cells (Auto) 10-20 H (0-5) /lpf Urine Bacteria (Auto) Negative (Negative) Adenovirus (PCR) Not Detected (NotDetected) B. pertussis DNA (PCR) Not Detected (NotDetected) B.parapertussis DNA PCR Not Detected (NotDetected) C. pneumoniae DNA (PCR) Not Detected (NotDetected) Coronavirus OC43 (PCR) Not Detected (NotDetected) Coronavirus HKU1 (PCR) Not Detected (NotDetected) Coronavirus 229E (PCR) Not Detected (NotDetected) SARS-CoV-2 (PCR) DETECTED A* (NotDetected) Coronavirus NL63 (PCR) Not Detected (NotDetected) Human Metapneumovir PCR Not Detected (NotDetected) Influenza Type A (PCR) Not Detected (NotDetected) Influenza Type B (PCR) Not Detected (NotDetected) M. pneumoniae (PCR) Not Detected (NotDetected) Parainfluenza 1 (PCR) Not Detected (NotDetected) Parainfluenza 2 (PCR) Not Detected (NotDetected) Parainfluenza 3 (PCR) Not Detected (NotDetected) Parainfluenza 4 (PCR) Not Detected (NotDetected) RSV (PCR) Not Detected (NotDetected) Entero/Rhino (PCR) Not Detected (NotDetected) Administered Medications Miscellaneous (Patient's Height &/Or Weight Needed) 1 each N/A NOW STA Stop: 05/13/23 00:45 Last Admin: 05/13/23 00:52 Dose: Not Given Documented By: BROOKS Discontinued Medications Azithromycin (Azithromycin 250 Mg Tab) 500 mg PO NOW ONE Stop: 05/12/23 20:06 Last Admin: 05/12/23 21:50 Dose: Not Given Documented By: BROOKS Dexamethasone (Dexamethasone Sod Inj 4 Mg/Ml Vial) 8 mg IV NOW STA Stop: 05/12/23 20:01 Last Admin: 05/12/23 20:11 Dose: 8 mg Documented By: BROOKS Doxycycline Hyclate (Doxycycline Hyclate 100 Mg Cap) 100 mg PO NOW STA Stop: 05/12/23 21:35 Last Admin: 05/12/23 21:55 Dose: 100 mg Documented By: BROOKS Imaging Data Radiologist's Impression: Chest X-Ray 05/12/23 18:05 SINGLE VIEW CHEST CLINICAL HISTORY: Dyspnea FINDINGS: A PA chest radiograph is compared to study dated 05/07/2022 and correlated with chest CT dated 06/24/2022. The cardiomediastinal silhouette is unremarkable. Advanced emphysema and chronic interstitial thickening is similar to previous. There are increasing airspace opacities at the left lung base. Foci of parenchymal scarring are seen throughout both lungs. No large pleural effusion or pneumothorax is identified. The skeletal structures are osteopenic. The bony thorax is grossly intact. IMPRESSION: 1. Advanced emphysema. 2. There are increasing airspace opacities at the left lung base which could represent progressive atelectasis versus an infectious/inflammatory pneumonitis. Clinical correlation will be required and radiographic follow-up to resolution is recommended ACT 112: Negative or not required by law. Electronically signed by: rAis Parrish M.D. 05/12/2023 7:40 PM Discharge Plan Visit Data Chief Complaint: Flu Like Symptoms Stated Complaint: COVID, FEVER/99.6, VOMITING, CONGESTION, DIARREAH ED Provider: Alex Solis Discharge Problem: COVID-19, Cough, COPD (chronic obstructive pulmonary disease), Weakness Patient Disposition: Home - Self-Care Discharge Instructions Interventions: ED Discharge Assessment Last Done: 05/12/23 21:56 Discharge Problem: Cough Qualifiers: Cough type: acute Qualified Code(s): R05.1 - Acute cough COPD (chronic obstructive pulmonary disease) Qualifiers: COPD type: unspecified COPD Qualified Code(s): J44.9 - Chronic obstructive pulmonary disease, unspecified
[2023-05-12] MEDS ORDERED: AZITHROMYCIN 250 MG TAB PO ONE (20:05)
[2023-05-12 20:09] LABS: Appearance Urine Clear (Clear); Bacteria Urine Automated Negative (Negative); Bilirubin Urine Negative (Negative); Blood Urine Trace (Negative); Color Urine Yellow; Glucose Urine UA Negative (Negative); Ketones Urine Negative (Negative); Leukocyte Esterase Urine 2+ (Negative); Nitrite Urine Negative (Negative); Protein Urine Negative (Negative); RBC Urine Automated 0-4 /hpf (0-4); Specific Gravity Urine 1.007 (1.000-1.030); Urobilinogen Urine Negative (Negative); WBC Urine Automated >30 /hpf (0-5)
[2023-05-12] MEDS ORDERED: DOXYCYCLINE HYCLATE 100 MG CAP PO STA (21:34)
--- NOTE | 2023-05-12 23:01 | History & Physical Report ---
Date of Service May 12, 2023 Assessment & Plan (1) COVID-19: Plan: Worsening cough, DURAN x 1 week; presented with who is also COVID-positive COVID+ on arrival Isolation precautions in place No leukocytosis; afebrile Procalcitonin WNL CXR revealed advanced emphysema, as well as airspace opacities at the left lung base which could represent progressive atelectasis or infectious/inflammatory pneumonitis Patient was given doxycycline 100 mg in ED, as she was previously prescribed azithromycin 250 mg p.o. 3 times per week outpatient for chronic PNA prophylaxis We will switch to azithromycin 500 mg IV q24h while inpatient, and cefepime 2000 mg IV q8h for Pseudomonas coverage given patient is at high risk for opportunistic infections Patient uses supplemental oxygen at home (3-4L NC) for her advanced emphysema Will defer remdesivir at this time as patient's symptoms are outside the window for treatment Supplemental oxygen as needed to maintain SpO2 greater than 94% Dexamethasone 6 mg IV QAM Acetaminophen as needed for fever/pain Zofran as needed for nausea/vomiting A.m. CBC, BMP (2) COPD (chronic obstructive pulmonary disease): Plan: On 3-4L NC at baseline Continue Trelegy Ellipta Continue albuterol/Reglan as needed (3) Stented coronary artery: Plan: History of CT in 2011 with 2 stents placed EKG NSR at 82 bpm; QTc 479 Continue aspirin every other day (4) Dyslipidemia: Plan: Continue atorvastatin (5) Anxiety: Plan: Continue buspirone (6) Severe malnutrition: Plan: Due to advanced COPD Continue mirtazapine Plan Disposition: Obs -admit to [facility] telemetry DNR/DNI AHA diet VTE PPx: SCDs, Lovenox 40 mg SQ q24h History of Present Illness Chief Complaint: COVID Primary Care Provider: Sunshine Worthy MD Madi is a 62-year-old female with PMH of COPD, CT, coronary artery stenting, anxiety, and dyslipidemia. She presented with her for worsening DURAN, fever, nausea, diarrhea, productive cough, congestion x 1 week. COVID-positive on arrival. She has been taking Tylenol at home for the fever (2 tablets BID). She reports she has not had any COVID shots or boosters. She uses continuous supplemental oxygen at home (3-4L NC) for her advanced emphysema. Former tobacco cigarette smoker; quit in 2012. She denies alcohol use, vaping, but endorses eating marijuana edibles. Patient is hypertensive 146/92 at time of admission; vitals otherwise stable. ED course: Dexamethasone 8 mg IV Azithromycin 500 mg p.o. Doxycycline 100 mg p.o. ROS: Patient endorses KHALIL, fever, chills, nausea, productive cough, sore throat, DURAN, vomiting (2 episodes), and diarrhea (2-3 episodes). Patient denies chest pain, chest palpitations, pleuritic CP, hemoptysis, dysuria, burning with urination, or numbness/tingling doing down arms or legs. Allergies Allergy/AdvReac Type Severity Reaction Status Date / Time bupropion [From Wellbutrin] Allergy Severe Unknown Verified 04/20/23 14:30 sulfamethoxazole Allergy Severe THROAT AND Verified 04/20/23 14:30 EARS SWELL trimethoprim Allergy Severe THROAT AND Verified 04/20/23 14:30 EARS SWELL codeine AdvReac Intermediate STOMACH Verified 04/20/23 14:30 CRAMPS, "KNOCKS ME OUT FOR DAYS" Home Medications Medication Instructions Recorded Confirmed Type aspirin 81 mg tablet,delayed 81 mg PO Q OTHER DAY 04/25/19 05/12/23 History release (Adult Low Dose Aspirin) cholecalciferol (vitamin D3) 25 25 mcg PO QAM 03/26/21 05/12/23 History mcg (1,000 unit) capsule Oxygen Home #1 ea 06/05/21 05/12/23 Rx ascorbic acid 1,000 1 ea PO DAILY PRN Cold Symptoms 04/03/22 05/12/23 History xu-lymmygselyfg-erkxfuia powder effervescent pack (Emergen-C) ipratropium 20 mcg-albuterol 100 1 puff inhalation QID PRN 05/10/22 05/12/23 Rx mcg/actuation mist for inhalation SOB/WHEEZING #4 grams (Combivent Respimat) albuterol sulfate 90 mcg/actuation 2 inh inhalation QID PRN shortness 05/21/22 05/12/23 Rx aerosol inhaler of breath or wheezing #8.5 grams Medical Marijuana 1 dose PO DIRECTED PRN Anxiety 06/22/22 05/12/23 History pantoprazole 40 mg tablet,delayed 40 mg PO BID #180 tabs 09/23/22 05/12/23 Rx release escitalopram oxalate 20 mg tablet 20 mg PO HS #90 tabs 12/01/22 05/12/23 Rx atorvastatin 40 mg tablet 40 mg PO HS #90 tabs 12/07/22 05/12/23 Rx azithromycin 250 mg tablet 250 mg PO 3XWK #36 tabs 12/09/22 05/12/23 Rx guaifenesin 600 mg tablet, 600 mg PO BID PRN congestion #60 12/09/22 05/12/23 Rx extended release 12 hr (Mucinex) tabs ipratropium 0.5 mg-albuterol 3 mg 3 ml inhalation Q6H PRN 12/09/22 05/12/23 Rx (2.5 mg base)/3 mL nebulization SOB/WHEEZING #180 mL soln buspirone 5 mg tablet 5 mg PO TID #270 tabs 01/08/23 05/12/23 Rx alprazolam 0.25 mg tablet 0.125 - 0.25 mg (0.5 - 1 x 0.25 04/12/23 05/12/23 Rx mg) PO DAILY PRN anxiety 30 days #30 tabs doxycycline hyclate 100 mg tablet 100 mg PO BID 10 days #20 tabs 05/12/23 Rx fluticasone fur. 100 mcg-umeclid 1 ea inhalation QAM 05/12/23 05/12/23 History 62.5 mcg-vilant 25 mcg inhalat.powder (Trelegy Ellipta) mirtazapine 7.5 mg tablet 15 mg PO HS 05/12/23 05/12/23 History prednisone 50 mg tablet 50 mg PO DAILY 5 days #5 tabs 05/12/23 Rx Past Med/Surg History Medical History Acid reflux Anxiety Aortic regurgitation follows with Dr. Martinez Bronchitis none at present Chronic respiratory failure with hypoxia Colitis resolved per pt COPD (chronic obstructive pulmonary disease) "24% lung function left" per pt > follows with Dr. Pinzon Coronary artery disease Emphysema of lung Heart disease Hypertension Myocardial infarct November 2011 On home oxygen therapy 3LPM Pneumonia none at present Pneumonia due to COVID-19 virus May/Jun 2021 > hospitalized at [facility] Sleep apnea cpap Surgical History History of nasal surgery History of nasal cauterization History of tonsillectomy History of hysterectomy History of appendectomy Stented coronary artery Family History Father Lung cancer Mother Stroke Brother Enlarged liver Grandmother (Maternal) Colorectal cancer Other Diabetes Hypertension Denies family history of Ovarian cancer Prostate cancer Breast cancer Social History Smoking Status: Former smoker Tobacco Type: Cigarettes Age Quit Using Tobacco: 52; Cigarettes Per Day: 20; Second Hand Exposure: Yes (as kid); Do You Dip or Chew Tobacco: No; Hx Alcohol Use: No Hx Substance Use: Yes Substance Use Type Other:: medical card Preferred Language: Slovak Communication Ability: Effective Visual Impairment: No Limitations Hearing Ability: Normal 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 Beliefs That Will Affect Care: None marital status: Current Living Situation: Spouse Current Living Situation Comment: Feels Safe at Home: Yes Seatbelt Use: always Assistive Devices: CPAP, Denture - Upper, Denture - Lower, Glasses and Oxygen - Continuous Review of Systems Review of Systems: See HPI above Physical Exam Physical Exam: General: Mild respiratory distress; non-toxic appearing; cachectic; anxious; 97% SpO2 on 3L NC HEENT: normocephalic, atraumatic; no scleral icterus; PERRLA w/ EOMs intact; dry mucus membrane; vision and hearing grossly intact Neck: supple; no lymphadenopathy; trachea midline Skin: warm, dry without signs of tenting; no cyanosis; no rashes, bruising, lesions, or erythema noted CV: chest wall NTP; RRR; S1/S2 normal; 1/6 ejection murmur auscultated at the second ICS MCL; pulses intact and symmetric at radial, DP, and PT Lungs: Mild respiratory distress; symmetrical chest wall expansion; decreased breath sounds across all lung payan, however no adventitious sounds; no wheezing ABD: Soft, NTP; BS present; no rebound/guarding; no distention; no rashes or bruising on abdomen MSK: no tics or fasciculations; no edema noted in the LEs b/l, nonerythematous Neuro: A&Ox3; normal mood and affect; fluent speech; no focal deficits; sensation grossly intact in LEs B/L Results & Data Results & Data Vital Signs (Past 12 Hours) Vital Signs Temp Pulse Pulse Resp BP BP Pulse Ox 05/12/23 21:56 92 H 16 156/92 H 97 05/12/23 21:00 90 14 156/92 H 97 05/12/23 19:49 83 14 193/107 H 100 05/12/23 19:46 87 18 98 05/12/23 19:39 85 05/12/23 18:03 36.2 C L 90 18 155/87 H 92 O2 Del Method O2 Flow Rate 05/12/23 21:56 Room Air 05/12/23 21:00 Nasal Cannula 3 05/12/23 19:49 Nasal Cannula 3 05/12/23 19:46 Nasal Cannula 3 05/12/23 19:39 05/12/23 18:03 Nasal Cannula 4 Laboratory Results Abnormal lab results 05/12/23 05/12/23 05/12/23 Range/Units 18:22 18:50 19:30 Neut # (Auto) 7.12 H (1.40-6.50) K/uL Carbon Dioxide 34 H (21-32) mmol/L Creatinine 0.58 L (0.6-1.2) mg/dl Alkaline Phosphatase 111 H (34-104) U/L Urine pH 8.0 H (4.5-7.5) Urine Blood Trace H (Negative) Ur Leukocyte Esterase 2+ H (Negative) Urine WBC (Auto) >30 H (0-5) /hpf U Epithel Cells (Auto) 10-20 H (0-5) /lpf SARS-CoV-2 (PCR) DETECTED A* (NotDetected) Diagnostic Findings Chest X-Ray 05/12/23 18:05 SINGLE VIEW CHEST CLINICAL HISTORY: Dyspnea FINDINGS: A PA chest radiograph is compared to study dated 05/07/2022 and correlated with chest CT dated 06/24/2022. The cardiomediastinal silhouette is unremarkable. Advanced emphysema and chronic interstitial thickening is similar to previous. There are increasing airspace opacities at the left lung base. Foci of parenchymal scarring are seen throughout both lungs. No large pleural effusion or pneumothorax is identified. The skeletal structures are osteopenic. The bony thorax is grossly intact. IMPRESSION: 1. Advanced emphysema. 2. There are increasing airspace opacities at the left lung base which could represent progressive atelectasis versus an infectious/inflammatory pneumonitis. Clinical correlation will be required and radiographic follow-up to resolution is recommended ACT 112: Negative or not required by law. Electronically signed by: Aris Parrish M.D. 05/12/2023 7:40 PM Code Status & VTE Plan Code Status DNR/DNI VTE Prophylaxis Plan VTE Prophylaxis will be ordered: Yes Supervising Physician Co-Signing Physician Notes Attending addendum: I have physically seen this patient, have supervised the ARMIN's activities, and agree with the H&P unless as otherwise noted. Assessment and Plan: COPD exacerbation/COVID-19 infection with hypoxia- Baseline 2 L being increased to 3 to 4 L while in the ED Hold oral doxycycline and azithromycin Azithromycin 500 mg IV every 24 hours Duonebs every 4 hours while awake and every 2 hours when necessary. Dexamethasone 6 mg IV every morning Outside the window for treatment with remdesivir Could benefit from Paxlovid as an outpatient Continue Trelegy Ellipta CAD/stented coronary artery x 2/CT 2011- EKG normal sinus rhythm Normal troponin Continue aspirin Anxiety- Continue buspirone Remaining orders and notations as noted PG Care Time/CCT Total # of Minutes Spent Total Time Spent with Patient: Total time spent is greater than 50% in coordination of care (as documented) at patient's floor/unit and/or counseling patient: Coding [place] [address] INT INP/OBS CARE 2/55MIN Patient Type Established Medical Decision Making Moderate Complexity Diagnoses COVID-19 U07.1 Pulmonary emphysema, unspecified emphysema type J44.9 COPD type: unspecified COPD Stented coronary artery Z95.5 Dyslipidemia E78.5 Anxiety F41.9 Severe malnutrition E43 (2) COPD (chronic obstructive pulmonary disease) COPD type: unspecified COPD Qualified Code(s): J44.9 - Chronic obstructive pulmonary disease, unspecified
[2023-05-13] MEDS ORDERED: AZITHROMYCIN 500 MG in DEXTROSE 5% 250 ML IV STA (00:42)
[2023-05-13] MEDS ORDERED: CEFEPIME 2,000 MG in SYRINGE 0 ML IV STA (00:42)
[2023-05-13] MEDS ORDERED: Patient's HEIGHT &/or WEIGHT Needed STA (00:44)
[2023-05-13] MEDS ORDERED: ALPRAZolam 0.25 MG TABLET PO PRN (01:03)
[2023-05-13] MEDS ORDERED: guaiFENesin 600 MG TABCR PO PRN (01:03)
[2023-05-13] MEDS ORDERED: IPRATROPIUM BROMIDE/ALBUTEROL respimat INH INH PRN (01:03)
[2023-05-13] MEDS ORDERED: ACETAMINOPHEN 325 MG TAB PO PRN (01:03)
[2023-05-13] MEDS ORDERED: ALBUT/IPRATROP 3MG/0.5MG NEB 3 ML VIAL INH PRN (01:03)
[2023-05-13] MEDS ORDERED: Ipratropium HFA Inhaler (Combivent Respimat P&T Subs) INH PRN (01:44)
[2023-05-13] MEDS ORDERED: Albuterol HFA 8 GM Inhaler (Combivent Respimat P&T Subs) INH PRN (01:44)
[2023-05-13] MEDS ORDERED: PANTOprazole 40 MG TAB PO SCH (09:00)
[2023-05-13] MEDS ORDERED: dexAMETHasone 6 MG in SYRINGE 0 ML IV SCH (09:00)
[2023-05-13] MEDS ORDERED: ASPIRIN 81 MG ECTAB PO SCH (09:00)
[2023-05-13] MEDS ORDERED: CEFEPIME 2,000 MG in SYRINGE 0 ML IV SCH (09:00)
[2023-05-13] MEDS ORDERED: FLUTICASONE FUROATE 100MCG 14 PUFFS/INHALER INH SCH (09:00)
[2023-05-13] MEDS ORDERED: busPIRone 5 MG TAB PO SCH (09:00)
[2023-05-13] MEDS ORDERED: DEXAMETHASONE SOD INJ 4 MG/ML VIAL IV SCH (09:00)
[2023-05-13] MEDS ORDERED: ENOXAPARIN INJ 40 MG/0.4 ML SYR SQ SCH (09:00)
[2023-05-13] MEDS ORDERED: UMECLIDINIUM/VILANTEROL 62.5/25MCG 7 PUFFS/INHALER INH SCH (09:00)
--- NOTE | 2023-05-13 14:03 | Electrocardiogram Report ---
Test Reason : Blood Pressure : / mmHG Vent. Rate : 082 BPM Atrial Rate : 082 BPM P-R Int : 158 ms QRS Dur : 070 ms QT Int : 410 ms P-R-T Axes : 090 064 083 degrees QTc Int : 479 ms Normal sinus rhythm Nonspecific ST and T wave abnormality Abnormal ECG When compared with ECG of 07-MAY-2022 14:44, No significant change was found Confirmed by Arsenio Dickson ([id number]) on 05/13/2023 2:03:01 PM Referred By: REFERRED SELF Confirmed By:Arsenio Dickson
[2023-05-13] MEDS ORDERED: MIRTAZAPINE TAB 15 MG TAB PO SCH (21:00)
[2023-05-13] MEDS ORDERED: ESCITALOPRAM OXALATE 20 MG TAB PO SCH (21:00)
[2023-05-13] MEDS ORDERED: ATORVASTATIN 40 MG TAB PO SCH (21:00)
[2023-05-13] MEDS ORDERED: AZITHROMYCIN 500 MG in DEXTROSE 5% 250 ML IV SCH (22:00)
--- NOTE | 2023-05-14 10:38 | Discharge Summary ---
Discharge Summary Date of Service May 14, 2023 Admission HPI Per Admitting Provider Madi is a 62-year-old female with PMH of COPD, [place], coronary artery stenting, anxiety, and dyslipidemia. She presented with her for worsening DURAN, fever, nausea, diarrhea, productive cough, congestion x 1 week. COVID-positive on arrival. She has been taking Tylenol at home for the fever (2 tablets BID). She reports she has not had any COVID shots or boosters. She uses continuous supplemental oxygen at home (3-4L NC) for her advanced emphysema. Former tobacco cigarette smoker; quit in 2012. She denies alcohol use, vaping, but endorses eating marijuana edibles. Patient is hypertensive 146/92 at time of admission; vitals otherwise stable. ED course: Dexamethasone 8 mg IV Azithromycin 500 mg p.o. Doxycycline 100 mg p.o. ROS: Patient endorses KHALIL, fever, chills, nausea, productive cough, sore throat, DURAN, vomiting (2 episodes), and diarrhea (2-3 episodes). Patient denies chest pain, chest palpitations, pleuritic CP, hemoptysis, dysuria, burning with urination, or numbness/tingling doing down arms or legs. Admission Exam Per Admitting Provider See H&P Principal Dx & Hospital Course #1 = Principal Diagnosis (1) COVID-19: Summary: 1. Patient with COVID came in for continuation of symptoms x 1 week 2. Patient left AMA with (also COVID+) around 0100 on 05/13 3. Patient was not seen by hospitalist rounding team Worsening cough, DURAN x 1 week; presented with who is also COVID-positive COVID+ on arrival Isolation precautions in place No leukocytosis; afebrile Procalcitonin WNL CXR revealed advanced emphysema, as well as airspace opacities at the left lung base which could represent progressive atelectasis or infectious/inflammatory pneumonitis Patient was given doxycycline 100 mg in ED, as she was previously prescribed azithromycin 250 mg p.o. 3 times per week outpatient for chronic PNA prophylaxis We will switch to azithromycin 500 mg IV q24h while inpatient, and cefepime 2000 mg IV q8h for Pseudomonas coverage given patient is at high risk for opportu nistic infections Patient uses supplemental oxygen at home (3-4L NC) for her advanced emphysema Will defer remdesivir at this time as patient's symptoms are outside the window for treatment Supplemental oxygen as needed to maintain SpO2 greater than 94% Dexamethasone 6 mg IV QAM Acetaminophen as needed for fever/pain Zofran as needed for nausea/vomiting A.m. CBC, BMP (2) COPD (chronic obstructive pulmonary disease): On 3-4L NC at baseline Continue Trelegy Ellipta Continue albuterol/Reglan as needed (3) Stented coronary artery: History of [place] in 2011 with 2 stents placed EKG NSR at 82 bpm; QTc 479 Continue aspirin every other day (4) Dyslipidemia: Continue atorvastatin (5) Anxiety: Continue buspirone (6) Severe malnutrition: Due to advanced COPD Continue mirtazapine Plan Disposition: [facility] DNR/DNI AHA diet VTE PPx: SCDs, Lovenox 40 mg SQ q24h Discharge Exam Not performed Updated Medication List Medication Instructions Recorded Confirmed Type aspirin 81 mg tablet,delayed 81 mg PO Q OTHER DAY 04/25/19 05/12/23 History release (Adult Low Dose Aspirin) cholecalciferol (vitamin D3) 25 25 mcg PO QAM 03/26/21 05/12/23 History mcg (1,000 unit) capsule Oxygen Home #1 ea 06/05/21 05/12/23 Rx ascorbic acid 1,000 1 ea PO DAILY PRN Cold Symptoms 04/03/22 05/12/23 History ni-qyrrxuerigab-dnjooynn powder effervescent pack (Emergen-C) ipratropium 20 mcg-albuterol 100 1 puff inhalation QID PRN 05/10/22 05/12/23 Rx mcg/actuation mist for inhalation SOB/WHEEZING #4 grams (Combivent Respimat) albuterol sulfate 90 mcg/actuation 2 inh inhalation QID PRN shortness 05/21/22 05/12/23 Rx aerosol inhaler of breath or wheezing #8.5 grams Medical Marijuana 1 dose PO DIRECTED PRN Anxiety 06/22/22 05/12/23 History pantoprazole 40 mg tablet,delayed 40 mg PO BID #180 tabs 09/23/22 05/12/23 Rx release escitalopram oxalate 20 mg tablet 20 mg PO HS #90 tabs 12/01/22 05/12/23 Rx atorvastatin 40 mg tablet 40 mg PO HS #90 tabs 12/07/22 05/12/23 Rx azithromycin 250 mg tablet 250 mg PO 3XWK #36 tabs 12/09/22 05/12/23 Rx guaifenesin 600 mg tablet, 600 mg PO BID PRN congestion #60 12/09/22 05/12/23 Rx extended release 12 hr (Mucinex) tabs ipratropium 0.5 mg-albuterol 3 mg 3 ml inhalation Q6H PRN 12/09/22 05/12/23 Rx (2.5 mg base)/3 mL nebulization SOB/WHEEZING #180 mL soln buspirone 5 mg tablet 5 mg PO TID #270 tabs 01/08/23 05/12/23 Rx alprazolam 0.25 mg tablet 0.125 - 0.25 mg (0.5 - 1 x 0.25 04/12/23 05/12/23 Rx mg) PO DAILY PRN anxiety 30 days #30 tabs doxycycline hyclate 100 mg tablet 100 mg PO BID 10 days #20 tabs 05/12/23 Rx fluticasone fur. 100 mcg-umeclid 1 ea inhalation QAM 05/12/23 05/12/23 History 62.5 mcg-vilant 25 mcg inhalat.powder (Trelegy Ellipta) mirtazapine 7.5 mg tablet 15 mg PO HS 05/12/23 05/12/23 History prednisone 50 mg tablet 50 mg PO DAILY 5 days #5 tabs 05/12/23 Rx Hospital Stay Data Consultations 05/12/23 22:30 ED Decision to Admit Stat Pending Results Patient Have Any Pending Studies at Discharge: No Discharge Instructions Given to Patient (Per Discharging Provider) AMA Total Time Total Time Spent Total Time Spent (In Minutes): 15 Supervising Physician Co-Signing Physician Notes The patient was determined to be alert and able to make an informed decision about leaving the hospital AMA. She is aware that should her condition worsen, she should return to the hospital TY [place] [address] INP/OBS DISCH >30 MIN Patient Type Established Medical Decision Making Straight Forward Diagnoses COVID-19 U07.1 Pulmonary emphysema, unspecified emphysema type J44.9 COPD type: unspecified COPD Stented coronary artery Z95.5 Dyslipidemia E78.5 Anxiety F41.9 Severe malnutrition E43
== END 2023-05-13 01:14 | disposition left against medical advice (07) ==
LOC: EDINP 17:55 → ED 17:55 → EDINP 05-13 01:03

== ENCOUNTER 2024-09-12 10:36 | Inpatient (IN) ==
--- NOTE | 2024-09-12 11:16 | Emergency Department Note ---
Impression & Plan Acute diverticulitis, Abdominal pain, Leukocytosis ED Provider Note HISTORY OF PRESENT ILLNESS: Patient is a 63-year-old female presenting with abdominal pain. Patient reports that 8 days ago she started having pain diffusely throughout her abdomen. She states that she thinks this is a flareup of her diverticulitis. She denies any recent fevers. Denies any nausea or vomiting. Reports that she has not had a bowel movement now in the last few days because she has significant pain. States that she has taken stool softeners without any relief in her symptoms. Patient is on palliative care for her end-stage COPD and states she has been taking her prescribed morphine with little relief in her pain. She denies any recent sick contact exposures. Reports decreased appetite secondary to the abdominal pain. Patient is on baseline 3 L at rest and wears 6 L when up and walking. Denies any recent worsening of her shortness of breath or chest pain. ROS: as above PHYSICAL EXAM: Constitutional: Patient appears in no acute distress. Cachectic appearing. HENT: Head: Normocephalic and atraumatic. Eyes: EOMI, PERRL Mouth/Throat: Mucous membranes moist. Neck: Trachea midline. Neck supple. Cardiovascular: Tachycardic with regular rhythm. No murmurs, rubs or gallops. Intact distal pulses. Pulmonary/Chest: No respiratory distress. Breath sounds clear and equal bilaterally. No wheezes or rales. Abdominal: Abdomen soft, no rebound or guarding. Diffuse TTP Musculoskeletal: No edema, tenderness or deformity noted. Skin: Warm and dry. No rash, erythema, pallor or cyanosis Psychiatric: Appropriate mood and affect for situation. Neurological: Alert and keenly responsive. CN II-XII grossly intact, moving all extremities equally and fully. MDM: - Vitals signs showed hypertension, tachycardia and hypoxia. - History obtained via patient. History as above. - Chronic conditions affecting care: CAD (s/p PCI); HTN; COPD - Differential diagnoses include, but are not limited to: Aortic aneurysm; diverticulitis; ischemic colitis; ureteral calculi; small bowel obstruction; constipation - Order placed for continuous cardiac monitoring. At this time, monitor showed rate of 89 bpm with normal sinus rhythm, per my interpretation. - External medical records reviewed. Palliative care note dated was reviewed. 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 - EKG image interpreted by myself showed normal sinus rhythm. Rate tachycardic at 121 bpm. QT 284. No acute ischemic changes. - Laboratory workup interpreted by myself showed leukocytosis (WBC 12.35) with neutrophil predominance; normal PT/INR; stable electrolytes; hyperglycemia (glucose 137) with normal anion gap; normal troponin; normal lactic acid; normal lipase - Patient given 500 cc NS and 0.5 mg IV dilaudid in ER. - CT abdomen/pelvis with IV contrast showed extensive acute uncomplicated sigmoid diverticulitis measuring 15 cm in length of the sigmoid. - IV zosyn ordered - Given patient's extensive length of diverticulitis and continued pain in ER, will admit to hospitalist service - Discussion was had with case making machine operator about patient's case and need for admission - Hospitalist, Dr. Foster, consulted for admission - Patient admitted to [facility] hospitalist service for further evaluation and management. ASSESSMENT AND PLAN: Diagnosis: Acute diverticulitis; leukocytosis; abdominal pain Plan: Admit Past Med/Surg History Problem List Leukocytosis (Acute) Abdominal pain (Acute) Acute diverticulitis (Acute) Pulmonary cachexia due to COPD Encounter for hospice care discussion Advanced care planning/counseling discussion Palliative care by specialist Weakness generalized Dyspnea and respiratory abnormalities Stage 4 very severe COPD by GOLD classification Weakness (Acute) Cough (Acute) COVID-19 (Acute) Lung nodule Severe malnutrition Infiltrate noted on imaging study Multiple pulmonary nodules Vaccination hesitancy by patient Dyslipidemia Post-menopausal atrophic vaginitis Abnormal chest CT Aspiration into airway Dysphagia Anxiety Chronic respiratory failure with hypoxia Aortic regurgitation follows with Dr. Martinez COPD (chronic obstructive pulmonary disease) (Chronic) "24% lung function left" per pt > follows with Dr. Pinzon Coronary artery disease (Chronic) Heart disease Hypertension Bronchitis none at present Pneumonia none at present Emphysema of lung Acid reflux Stented coronary artery (Chronic) November 2011 > 2 stents Medical History (Updated 09/12/24 @ 12:48 by Mikayla Hanley MD) Sleep apnea cpap On home oxygen therapy 3LPM Pneumonia due to COVID-19 virus May/Jun 2021 > hospitalized at [facility] Constipation Colitis resolved per pt Myocardial infarct November 2011 Surgical History History of nasal surgery History of nasal cauterization History of tonsillectomy History of hysterectomy partial History of appendectomy Family History Father Lung cancer Mother Stroke Brother Enlarged liver Grandmother (Maternal) Colorectal cancer Other Diabetes Hypertension Denies family history of Ovarian cancer Prostate cancer Breast cancer Social History Smoking Status: Former smoker Tobacco Type: Cigarettes Age Started Using Tobacco: 8; Age Quit Using Tobacco: 52; packs per day: 1.5; Cigarettes Per Day: 20; Second Hand Exposure: Yes (as kid); Do You Dip or Chew Tobacco: No; Hx Alcohol Use: No Hx Substance Use: Yes Substance Use Type Other:: medical card Preferred Language: Egyptian Communication Ability: Effective Visual Impairment: No Limitations Hearing Ability: Normal 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 Required: No Beliefs That Will Affect Care: None marital status: Current Living Situation: Spouse Current Living Situation Comment: current occupational status: retired Feels Safe at Home: Yes Childhood Exposure to Second-Hand Smoke: Yes Dental Care, Regularly: No Physical Activity Frequency: Does not Exercise Seatbelt Use: always Sunscreen Use: No Assistive Devices: CPAP, Denture - Upper, Denture - Lower, Glasses and Oxygen - Continuous Allergies Allergies Allergy/AdvReac Type Severity Reaction Status Date / Time bupropion [From Wellbutrin] Allergy Severe Unknown Verified 05/22/24 15:44 sulfamethoxazole Allergy Severe THROAT AND Verified 05/22/24 15:44 EARS SWELL trimethoprim Allergy Severe THROAT AND Verified 05/22/24 15:44 EARS SWELL codeine AdvReac Intermediate STOMACH Verified 05/22/24 15:44 CRAMPS, "KNOCKS ME OUT FOR DAYS" Home Meds Home Medications Medication Instructions Recorded Confirmed aspirin 81 mg tablet,delayed 81 mg PO Q OTHER DAY 04/25/19 05/22/24 release (Adult Low Dose Aspirin) cholecalciferol (vitamin D3) 25 25 mcg PO QAM 03/26/21 05/22/24 mcg (1,000 unit) capsule ascorbic acid 1,000 1 ea PO DAILY PRN Cold Symptoms 04/03/22 05/22/24 oo-pjyaovcyugte-msudyjmo powder effervescent pack (Emergen-C) Medical Marijuana 1 dose PO DIRECTED PRN Anxiety 06/22/22 05/22/24 Previous Rx's Medication Instructions Recorded guaifenesin 600 mg tablet, 600 mg PO BID PRN congestion #60 12/09/22 extended release 12 hr (Mucinex) tabs Portable Oxygen #1 ea 07/29/23 Portable Oxygen #1 ea 01/28/24 azithromycin 250 mg tablet 250 mg PO 3XWK #36 tabs 01/28/24 atorvastatin 40 mg tablet 40 mg PO HS #90 tabs 05/22/24 escitalopram oxalate 20 mg tablet 20 mg PO HS #90 tabs 05/22/24 pantoprazole 40 mg tablet,delayed 40 mg PO BID #180 tabs 05/22/24 release roflumilast 500 mcg tablet 500 mcg PO DAILY #90 tabs 07/11/24 (Daliresp) albuterol sulfate 90 mcg/actuation 2 inh inhalation QID PRN shortness 07/18/24 aerosol inhaler of breath or wheezing 3 months #8.5 grams ipratropium 0.5 mg-albuterol 3 mg 3 ml inhalation Q6H end stage COPD 07/18/24 (2.5 mg base)/3 mL nebulization 3 months #180 mL soln mirtazapine 15 mg disintegrating 15 mg PO DAILY anorexia #30 tabs 08/10/24 tablet lorazepam 0.5 mg tablet (Ativan) 0.25 mg (1/2 x 0.5 mg) PO QID PRN 08/14/24 anxiety 1 month #90 tabs Results & Data (ED) Vital Signs Vital Signs - 24 hr 09/12/24 10:40 09/12/24 11:07 09/12/24 11:13 Temperature 36.6 C Temperature Source Temporal Artery Scan Pulse Rate 116 H 119 H Pulse Rate [Left Apical] Pulse Rate from SpO2 Sensor Pulse Rhythm Regular Pulse Strength Normal Respiratory Rate 20 Respiratory Effort / Characteristics Non-Labored Respiratory Depth Normal Respiratory Pattern Regular Blood Pressure 156/94 H 168/91 H Blood Pressure [Right Arm] Blood Pressure Mean 114 132 Blood Pressure Mean [Right Arm] Blood Pressure Position Sitting Pulse Oximetry 87 L Oxygen Delivery Method Nasal Cannula Oxygen Flow Rate 3 Sepsis Recent Fever Within 48 Hours No Sepsis New/Unexplained Change in Mental Status N/A Sepsis Action Taken by Nursing No Action Required 09/12/24 11:15 09/12/24 11:18 09/12/24 11:24 Temperature Temperature Source Pulse Rate 119 H 106 H Pulse Rate [Left Apical] 119 H Pulse Rate from SpO2 Sensor 119 H Pulse Rhythm Pulse Strength Respiratory Rate 23 20 Respiratory Effort / Characteristics Non-Labored Spontaneous Respiratory Depth Normal Respiratory Pattern Regular Blood Pressure Blood Pressure [Right Arm] 158/101 H Blood Pressure Mean Blood Pressure Mean [Right Arm] 120 Blood Pressure Position Pulse Oximetry 96 98 97 Oxygen Delivery Method Nasal Cannula Nasal Cannula Nasal Cannula Oxygen Flow Rate 3 3 3 Sepsis Recent Fever Within 48 Hours Sepsis New/Unexplained Change in Mental Status Sepsis Action Taken by Nursing 09/12/24 11:24 09/12/24 11:24 09/12/24 11:30 Temperature Temperature Source Pulse Rate 119 H Pulse Rate [Left Apical] Pulse Rate from SpO2 Sensor 119 H Pulse Rhythm Pulse Strength Respiratory Rate 27 H Respiratory Effort / Characteristics Respiratory Depth Respiratory Pattern Blood Pressure 158/101 H 163/98 H Blood Pressure [Right Arm] Blood Pressure Mean 112 128 Blood Pressure Mean [Right Arm] Blood Pressure Position Pulse Oximetry 97 Oxygen Delivery Method Nasal Cannula Oxygen Flow Rate 3 Sepsis Recent Fever Within 48 Hours Sepsis New/Unexplained Change in Mental Status Sepsis Action Taken by Nursing 09/12/24 11:30 09/12/24 11:48 09/12/24 11:54 Temperature Temperature Source Pulse Rate 113 H 89 108 H Pulse Rate [Left Apical] Pulse Rate from SpO2 Sensor 113 H 90 109 H Pulse Rhythm Pulse Strength Respiratory Rate 21 18 19 Respiratory Effort / Characteristics Respiratory Depth Respiratory Pattern Blood Pressure Blood Pressure [Right Arm] Blood Pressure Mean Blood Pressure Mean [Right Arm] Blood Pressure Position Pulse Oximetry 97 97 96 Oxygen Delivery Method Nasal Cannula Nasal Cannula Oxygen Flow Rate 3 3 Sepsis Recent Fever Within 48 Hours Sepsis New/Unexplained Change in Mental Status Sepsis Action Taken by Nursing 09/12/24 11:57 09/12/24 12:00 09/12/24 12:02 Temperature Temperature Source Pulse Rate 109 H 104 H Pulse Rate [Left Apical] Pulse Rate from SpO2 Sensor 110 H 105 H Pulse Rhythm Pulse Strength Respiratory Rate 20 19 Respiratory Effort / Characteristics Respiratory Depth Respiratory Pattern Blood Pressure 166/98 H Blood Pressure [Right Arm] Blood Pressure Mean 118 Blood Pressure Mean [Right Arm] Blood Pressure Position Pulse Oximetry 96 95 Oxygen Delivery Method Oxygen Flow Rate Sepsis Recent Fever Within 48 Hours Sepsis New/Unexplained Change in Mental Status Sepsis Action Taken by Nursing 09/12/24 12:14 09/12/24 12:20 09/12/24 12:38 Temperature Temperature Source Pulse Rate 106 H 81 90 Pulse Rate [Left Apical] Pulse Rate from SpO2 Sensor 106 H 80 91 H Pulse Rhythm Pulse Strength Respiratory Rate 19 20 23 Respiratory Effort / Characteristics Respiratory Depth Respiratory Pattern Blood Pressure Blood Pressure [Right Arm] Blood Pressure Mean Blood Pressure Mean [Right Arm] Blood Pressure Position Pulse Oximetry 95 96 98 Oxygen Delivery Method Oxygen Flow Rate Sepsis Recent Fever Within 48 Hours Sepsis New/Unexplained Change in Mental Status Sepsis Action Taken by Nursing 09/12/24 12:38 09/12/24 12:53 Temperature Temperature Source Pulse Rate 85 Pulse Rate [Left Apical] Pulse Rate from SpO2 Sensor 87 Pulse Rhythm Pulse Strength Respiratory Rate 20 Respiratory Effort / Characteristics Respiratory Depth Respiratory Pattern Blood Pressure 154/87 H Blood Pressure [Right Arm] Blood Pressure Mean 113 Blood Pressure Mean [Right Arm] Blood Pressure Position Pulse Oximetry 99 Oxygen Delivery Method Oxygen Flow Rate Sepsis Recent Fever Within 48 Hours Sepsis New/Unexplained Change in Mental Status Sepsis Action Taken by Nursing Laboratory Data 09/12/24 11:15 09/12/24 11:15 Lab Results 09/12/24 Range/Units 11:15 WBC 12.35 H (4.8-10.8) K/ul RBC 3.87 L (4.20-5.40) M/uL Hgb 11.7 L (12.0-16.0) g/dl Hct 35.0 L (37.0-47.0) % MCV 90.4 (80.0-100.0) fL MCH 30.2 (25.0-34.0) pg MCHC 33.4 (32.0-36.0) g/dL RDW Std Deviation 41.3 (36.4-46.3) fL RDW Coeff of Luis 12.5 (11.5-14.5) % Plt Count 231 (130-400) K/uL MPV 10.2 (9.4-12.4) fL Immature Gran % (Auto) 0.3 % Neut % (Auto) 88.6 % Lymph % (Auto) 7.3 % [place] % (Auto) 3.6 % Eos % (Auto) 0.1 % Baso % (Auto) 0.1 % Neut # (Auto) 10.95 H (1.40-6.50) K/uL Lymph # (Auto) 0.90 L (1.20-3.40) K/uL [place] # (Auto) 0.44 (0.11-0.59) K/uL Eos # (Auto) 0.01 (0.00-0.50) K/uL Baso # (Auto) 0.01 (0.00-0.20) K/uL Immature Gran # (Auto) 0.04 (0.01-0.20) K/uL PT 11.1 (9.0-12.0) Seconds INR 1.0 (0.9-1.1) Sodium 139 (136-145) mmol/L Potassium 3.7 (3.5-5.1) mmol/L Chloride 100 (98-107) mmol/L Carbon Dioxide 32 (21-32) mmol/L Anion Gap 7 (3-11) BUN 9 (6-23) mg/dl Creatinine 0.54 L (0.6-1.2) mg/dl Est Cr Clr Drug Dosing 67.4 ml/min eGFR 102.11 BUN/Creatinine Ratio 16.7 (10-20) Glucose 137 H (70-99(Fasting)) mg/dl Lactate 0.8 (0.4-2.0) mmol/L Calcium 8.8 (8.6-10.3) mg/dl Total Bilirubin 0.8 (0.2-1.0) mg/dl AST 18 (13-39) U/L ALT 11 (7-52) U/L Alkaline Phosphatase 75 (34-104) U/L Troponin I High Sens 6.9 (0-14) pg/ml Total Protein 6.3 (6.0-8.3) gm/dl Albumin 3.8 (3.4-5.0) gm/dl Globulin 2.5 (2.5-4.0) gm/dl Albumin/Globulin Ratio 1.5 (0.9-2) Lipase 16 (11-82) U/L Administered Medications Discontinued Medications Hydromorphone HCl (Hydromorphone Inj 0.5 Mg/0.5 Ml Syr) 0.5 mg IV NOW STA Stop: 09/12/24 11:14 Last Admin: 09/12/24 11:25 Dose: 0.5 mg Documented By: DM Sodium Chloride (Nss) 500 mls @ 999 mls/hr IV .Q31M ONE Stop: 09/12/24 11:43 Last Infusion: 09/12/24 12:38 Dose: Infused Documented By: Admin: 09/12/24 11:26 Dose: 999 mls/hr Documented By: RODRIGO Piperacillin Sod/Tazobactam Sod (Zosyn) 4.5 gm in 100 mls @ 200 mls/hr IV NOW ONE; Protocol Stop: 09/12/24 13:12 Last Admin: 09/12/24 13:00 Dose: 200 mls/hr Documented By: GAMA Ioversol (Optiray 320 100ml) 93 ml IV ONCE ONE Stop: 09/12/24 12:29 Last Admin: 09/12/24 12:29 Dose: 93 ml Documented By: ZAHRA Imaging Data Radiologist's Impression: Abdomen/Pelvis CT 09/12/24 11:[address] WITH IV CONTRAST CT DOSE: 278.4 mGy.cm HISTORY: diffuse abd pain TECHNIQUE: Multiaxial CT images of the abdomen and pelvis were performed following the IV administration of 90 cc of Optiray, A dose lowering technique was utilized adhering to the principles of ALARA. COMPARISON STUDY: 02/04/2020 FINDINGS: There is stable severe emphysema in the visualized lung bases. ABDOMEN: Liver, gallbladder, spleen, pancreas, and adrenal glands are unremarkable. Kidneys show no hydronephrosis. There are moderate atherosclerotic calcifications. No abdominal aortic aneurysm. Pelvis: Uterus is either absent or extremely diminutive. No adnexal mass seen. Urinary bladder is mildly distended. There is extensive sigmoid diverticulosis. There is long segment wall thickening and inflammation measuring approximately 15 cm in length at the sigmoid colon consistent with acute diverticulitis. There is trace adjacent free fluid. No free air or abscess seen. No bowel obstruction. There are mild lumbar and hip degenerative changes. IMPRESSION: Extensive acute uncomplicated sigmoid diverticulitis. ACT 112: Negative or not required by law. The above report was generated using voice recognition software. It may contain grammatical, syntax or spelling errors. Electronically signed by: Emanuel Foley M.D. 09/12/2024 12:39 PM Discharge Plan Visit Data Chief Complaint: Abdominal Pain Stated Complaint: ABD PAIN ED Provider: Mikayla Hanley Discharge Problem: Acute diverticulitis, Abdominal pain, Leukocytosis Condition: Fair Forms Stand Alone Forms: My [facility] Prescriptions Prescriptions: No Action aspirin [Adult Low Dose Aspirin] 81 mg tablet,delayed release (DR/EC) 81 mg PO Q OTHER DAY Rx Instructions: 81 mg PO every other day; roflumilast [Daliresp] 500 mcg tablet 500 mcg PO DAILY Qty: 90 3RF albuterol sulfate 90 mcg/actuation HFA aerosol inhaler 2 inh inhalation QID PRN (Reason: shortness of breath or wheezing) 90 Days Qty: 8.5 3RF ipratropium-albuterol 0.5 mg-3 mg(2.5 mg base)/3 mL solution for nebulization 3 ml INHALATION Q6H 90 Days Qty: 180 3RF Rx Instructions: J44.9 COPD cholecalciferol (vitamin D3) 25 mcg (1,000 unit) capsule 25 mcg PO QAM guaifenesin [Mucinex] 600 mg tablet extended release 12hr 600 mg PO BID PRN (Reason: congestion) Qty: 60 1RF Rx Instructions: Take 1 tab p.o. twice a day for 7 days and then as needed (DME) Portable Oxygen Misc See Rx Instructions .MEDSUPPLY Qty: 1 0RF Rx Instructions: Oxygen liters continuous via nasal cannula at rest and 6 L continuous via nasal cannula on exertion with portable concentrator. DUNIA 99 pantoprazole 40 mg tablet,delayed release (DR/EC) 40 mg PO BID Qty: 180 3RF escitalopram oxalate 20 mg tablet 20 mg PO HS Qty: 90 3RF atorvastatin 40 mg tablet 40 mg PO HS Qty: 90 3RF mirtazapine 15 mg tablet,disintegrating 15 mg PO DAILY Qty: 30 3RF lorazepam [Ativan] 0.5 mg tablet 0.25 mg PO QID PRN (Reason: anxiety) 30 Days Qty: 90 0RF azithromycin 250 mg tablet 250 mg PO 3XWK Qty: 36 3RF Rx Instructions: 250 mg PO 1 tab p.o. Ivpzuo-Fcfsskoqo-Fygoej; (DME) Portable Oxygen Misc See Rx Instructions .MEDSUPPLY Qty: 1 0RF Rx Instructions: Oxygen 5 liters continuous via nasal cannula on exertion with portable concentrator. DUNIA 99 Emergen-C 1,000 mg Powder Effervescent In Packet 1 ea PO DAILY PRN (Reason: Cold Symptoms) Medical Marijuana 1 dose PO DIRECTED PRN (Reason: Anxiety) Referrals Referrals: Sunshine Judd MD [Primary Care Provider] -
[2024-09-12] MEDS: HYDROmorphone INJ 0.5 MG/0.5 ML SYR IV STA (11:25)
[2024-09-12] MEDS: SODIUM CHLORIDE 0.9% 500 ML IV ONE (11:26)
[2024-09-12 11:55] LABS: Basophils # (auto) 0.01 K/uL (0.00-0.20); Basophils % (auto) 0.1 %; Eosinophils # (auto) 0.01 K/uL (0.00-0.50); Eosinophils % (auto) 0.1 %; Hemoglobin 11.7 g/dl (12.0-16.0); Immature Granulocytes # (auto) 0.04 K/uL (0.01-0.20); Immature Granulocytes % (auto) 0.3 %; Lymphocytes % (auto) 7.3 %; Mean Corpuscular Hemoglobin 30.2 pg (25.0-34.0); Mean Corpuscular Hgb Conc 33.4 g/dL (32.0-36.0); Mean Corpuscular Volume 90.4 fL (80.0-100.0); Mean Platelet Volume 10.2 fL (9.4-12.4); Monocytes # (auto) 0.44 K/uL (0.11-0.59); Monocytes % (auto) 3.6 %; Neutrophils # (auto) 10.95 K/uL (1.40-6.50); Neutrophils % (auto) 88.6 %; Platelet Count 231 K/uL (130-400); RDW Coefficient of Variation 12.5 % (11.5-14.5); RDW Standard Deviation 41.3 fL (36.4-46.3); Red Blood Count 3.87 M/uL (4.20-5.40); White Blood Count 12.35 K/ul (4.8-10.8)
[2024-09-12 12:14] LABS: Albumin Globulin Ratio 1.5 (0.9-2); Albumin Level 3.8 gm/dl (3.4-5.0); BUN Creatinine Ratio 16.7 (10-20); Bilirubin,Total 0.8 mg/dl (0.2-1.0); Calcium 8.8 mg/dl (8.6-10.3); Creatinine Clr Calc Pharmacy 67.4 ml/min; Globulin 2.5 gm/dl (2.5-4.0); Potassium 3.7 mmol/L (3.5-5.1); Total Protein 6.3 gm/dl (6.0-8.3)
[2024-09-12 12:20] LABS: Troponin I High Sensitivity 6.9 pg/ml (0-14)
[2024-09-12 12:27] LABS: Prothrombin Time 11.1 Seconds (9.0-12.0)
[2024-09-12] MEDS: OPTIRAY 320 100ml IV ONE (12:29)
--- NOTE | 2024-09-12 12:41 | CT Scan Report ---
ABDOMEN AND PELVIS CT WITH IV CONTRAST CT DOSE: 278.4 mGy.cm HISTORY: diffuse abd pain TECHNIQUE: Multiaxial CT images of the abdomen and pelvis were performed following the IV administrat ion of 90 cc of Optiray, A dose lowering technique was utilized adhering to the principles of ALARA. COMPARISON STUDY: 02/04/2020 FINDINGS: There is stable severe emphysema in the visualized lung bases. ABDOMEN: Liver, gallbladder, spleen, pancreas, and adrenal glands are unremarkable. Kidneys show no h ydronephrosis. There are moderate atherosclerotic calcifications. No abdominal aortic aneurysm. Pelvis: Uterus is either absent or extremely diminutive. No adnexal mass seen. Urinary bladder is mil dly distended. There is extensive sigmoid diverticulosis. There is long segment wall thickening and i nflammation measuring approximately 15 cm in length at the sigmoid colon consistent with acute divert iculitis. There is trace adjacent free fluid. No free air or abscess seen. No bowel obstruction. Ther e are mild lumbar and hip degenerative changes. IMPRESSION: Extensive acute uncomplicated sigmoid diverticulitis. ACT 112: Negative or not required by law. The above report was generated using voice recognition software. It may contain grammatical, syntax o r spelling errors. Electronically signed by: Emanuel Foley M.D. 09/12/2024 12:39 PM
[2024-09-12] MEDS: PIPERACILLIN/TAZOBACTAM 4.5 GM/100 ML BAG IV ONE (13:00)
--- NOTE | 2024-09-12 14:22 | History & Physical Report ---
<Statement entered by Kitty Foster MD - 09/12/24 18:09> I have reviewed vital signs, chart notes, labs and imaging. I have personally seen, evaluated and examined the patient. I have also discussed the management of the patient with the ARMIN and I agree with the exam findings documented in the history and physical examination and the documented assessment and plan unless otherwise stated below. Mallory Romo is a 63-year-old with severe end-stage COPD and chronic hypoxic respiratory failure on home oxygen being treated palliatively at this time who was admitted with acute diverticulitis of the sigmoid colon. My examination is notable for significant abdominal tenderness in the mid lower abdomen with some rebound tenderness, bowel tones are present, no rigidity or guarding per CT is a long segment of sigmoid diverticulitis 15 cm without evidence of perforation or abscess A/P: Acute sigmoid diverticulitis because of the long segment of affected bowel after significant tenderness as well as her underlying very frail health status she warrants admission for inpatient treatment. Will start with bowel rest continue pip-tazo, I doubt she would benefit from follow-up colonoscopy given her severe pulmonary disease and would entail risk of conscious sedation. Will continue palliative treatment for her COPD Date of Service September 12, 2024 Assessment & Plan (1) Acute diverticulitis: (2) Stage 4 very severe COPD by GOLD classification: (3) Chronic respiratory failure with hypoxia: (4) Hypertension: (5) Severe malnutrition: (6) Anxiety: Plan Madi is a pleasant 63-year-old female with past medical history of nd-stage COPD, chronic respiratory failure with hypoxia, CAD s/p 2 IMELDA, dyslipidemia, hypertension, anxiety, severe malnutrition, and palliative care program. She presented from home with 1 week of progressive abdominal pain. She reports decreased appetite over this time without much oral intake. Ongoing mild nausea and constant aching abdominal pain. She has never had a colonoscopy, but reports she did Cologuard 2-3 years ago and believes there were no abnormalities noted. CT A/P on admission reveals extensive acute uncomplicated sigmoid diverticulitis (long segment wall thickening and inflammation measuring approximately 15 cm). Trace adjacent free fluid, no free air or abscess seen. No bowel obstruction. #Diverticulitis Continue Zosyn started in ED N.p.o. (ice chips, sips of meds okay) Start maintenance IV fluids with NSS at 80 cc/hour Zofran 4 mg IV Q6H PRN nausea/vomiting Pain regimen with Tylenol 1000 mg IV Q8H PRN mild pain/fever, Dilaudid 0.25 mg IV Q6H PRN moderate pain, Dilaudid 0.50 mg IV Q6H PRN severe pain Recommend outpatient colonoscopy in 6-8 weeks #End-stage COPD/chronic respiratory failure/hypoxia/pulmonary cachexia due to COPD Follows with palliative care and pulmonology (Dr. Pinzon) for such No acute exacerbation, patient denies worsening of SOB or chest pain Continue home regimen Uses Air Vent HS - to bring in patient's home machine to use inpatient #Hypertension/hyperlipidemia/CAD Continue aspirin 81 mg daily, atorvastatin 40 mg HS Most recent echo 01/2023 with EF 55-60%, severe hypokinesis to akinesis of the apex, no LVH, mild AR, mild MR #Severe malnutrition, chronic - Secondary to advanced COPD Continue mirtazapine 15 mg daily Dietitian consulted. Recommend adding Boost TIDM (patient prefers vanilla) when diet advancement permits #GERD Continue pantoprazole 40 mg twice daily #Anxiety Continue escitalopram 20 mg daily, lorazepam 0.25 mg QID PRN anxiety VTE PPx: Lovenox 40 mg SQ daily CODE STATUS: DNR/DNI History of Present Illness Chief Complaint: Abdominal pain Primary Care Provider: Sunshine Judd MD Madi is a pleasant 63-year-old female with past medical history of nd-stage COPD, chronic respiratory failure with hypoxia, CAD s/p 2 IMELDA, dyslipidemia, hypertension, anxiety, severe malnutrition, and palliative care program. She presented from home with 1 week of progressive abdominal pain. She reports decreased appetite over this time without much oral intake. She has had some mild nausea but denies vomiting. She had a small episode of diarrhea this morning. She is resting in bed in no acute distress at the time of my evaluation. She reports 7/10 abdominal pain, which she describes as a constant aching pain with intermittent sharp/stabbing sensations. She reports the pain is improved from when she first presented to the ED when her pain was 10/10. She reports that she took all of her regular morning medications today; no recent change in her medications. She has never had a colonoscopy, but reports she did Cologuard 2-3 years ago and believes there were no abnormalities noted. She wears supplemental oxygen at baseline: 3 L at rest and 6 L with ambulation/activity. She utilizes an air vent HS, which she reports her will bring in from home. We discussed her code status, and she wishes to be DNR/DNI. Vitals on admission are significant for hypertension with BP 150s/90s; vitals otherwise stable. Labs on admission are significant for mild leukocytosis of 12.35 with neutrophil predominance, mild anemia with Hgb 11.7, low creatinine of 0.54 (likely secondary to malnutrition). Electrolytes, LFTs, lipase, troponin WNL. Imaging on admission reveals extensive acute uncomplicated sigmoid diverticulitis (long segment wall thickening and inflammation measuring approximately 15 cm). Trace adjacent free fluid, no free air or abscess seen. No bowel obstruction. Allergies Allergy/AdvReac Type Severity Reaction Status Date / Time bupropion [From Wellbutrin] Allergy Severe Unknown Verified 09/12/24 14:15 sulfamethoxazole Allergy Severe THROAT AND Verified 09/12/24 14:15 EARS SWELL trimethoprim Allergy Severe THROAT AND Verified 09/12/24 14:15 EARS SWELL codeine AdvReac Intermediate STOMACH Verified 09/12/24 14:15 CRAMPS, "KNOCKS ME OUT FOR DAYS" Home Medications Medication Instructions Recorded Confirmed Type aspirin 81 mg tablet,delayed 81 mg PO Q OTHER DAY 04/25/19 09/12/24 History release (Adult Low Dose Aspirin) cholecalciferol (vitamin D3) 25 25 mcg PO QAM 03/26/21 09/12/24 History mcg (1,000 unit) capsule ascorbic acid 1,000 1 ea PO DAILY PRN Cold Symptoms 04/03/22 09/12/24 History [id number]-[id number]-vjlxzdzc powder effervescent pack (Emergen-C) Medical Marijuana 1 dose PO DIRECTED PRN Anxiety 06/22/22 09/12/24 History guaifenesin 600 mg tablet, 600 mg PO BID PRN congestion #60 12/09/22 09/12/24 Rx extended release 12 hr (Mucinex) tabs Portable Oxygen #1 ea 07/29/23 05/22/24 Rx Portable Oxygen #1 ea 01/28/24 05/22/24 Rx azithromycin 250 mg tablet 250 mg PO 3XWK #36 tabs 01/28/24 09/12/24 Rx atorvastatin 40 mg tablet 40 mg PO HS #90 tabs 05/22/24 09/12/24 Rx escitalopram oxalate 20 mg tablet 20 mg PO HS #90 tabs 05/22/24 09/12/24 Rx pantoprazole 40 mg tablet,delayed 40 mg PO BID #180 tabs 05/22/24 09/12/24 Rx release roflumilast 500 mcg tablet 500 mcg PO DAILY #90 tabs 07/11/24 09/12/24 Rx (Daliresp) albuterol sulfate 90 mcg/actuation 2 inh inhalation QID PRN shortness 07/18/24 09/12/24 Rx aerosol inhaler of breath or wheezing 3 months #8.5 grams ipratropium 0.5 mg-albuterol 3 mg 3 ml inhalation Q6H end stage COPD 07/18/24 09/12/24 Rx (2.5 mg base)/3 mL nebulization 3 months #180 mL soln lorazepam 0.5 mg tablet (Ativan) 0.25 mg (1/2 x 0.5 mg) PO QID PRN 08/14/24 09/12/24 Rx anxiety 1 month #90 tabs mirtazapine 15 mg disintegrating 15 mg PO HS anorexia 09/12/24 09/12/24 History tablet morphine 20 mg/5 mL (4 mg/mL) oral See Rx Instructions .Route 09/12/24 09/12/24 History solution .COMPLEX PRN Shortness Of Breath Past Med/Surg History Problem List Leukocytosis (Acute) Abdominal pain (Acute) Acute diverticulitis (Acute) Pulmonary cachexia due to COPD Encounter for hospice care discussion Advanced care planning/counseling discussion Palliative care by specialist Weakness generalized Dyspnea and respiratory abnormalities Stage 4 very severe COPD by GOLD classification Weakness (Acute) Cough (Acute) COVID-19 (Acute) Lung nodule Severe malnutrition Infiltrate noted on imaging study Multiple pulmonary nodules Vaccination hesitancy by patient Dyslipidemia Post-menopausal atrophic vaginitis Abnormal chest CT Aspiration into airway Dysphagia Anxiety Chronic respiratory failure with hypoxia Aortic regurgitation follows with Dr. Martinez COPD (chronic obstructive pulmonary disease) (Chronic) "24% lung function left" per pt > follows with Dr. Pinzon Coronary artery disease (Chronic) Heart disease Hypertension Bronchitis none at present Pneumonia none at present Emphysema of lung Acid reflux Stented coronary artery (Chronic) November 2011 > 2 stents Medical History (Updated 09/12/24 @ 12:48 by Mikayla Hanley MD) Sleep apnea cpap On home oxygen therapy 3LPM Pneumonia due to COVID-19 virus May/Jun 2021 > hospitalized at [facility] Constipation Colitis resolved per pt Myocardial infarct November 2011 Surgical History History of nasal surgery History of nasal cauterization History of tonsillectomy History of hysterectomy partial History of appendectomy Family History Father Lung cancer Mother Stroke Brother Enlarged liver Grandmother (Maternal) Colorectal cancer Other Diabetes Hypertension Denies family history of Ovarian cancer Prostate cancer Breast cancer Social History Smoking Status: Former smoker Tobacco Type: Cigarettes Age Started Using Tobacco: 8; Age Quit Using Tobacco: 52; packs per day: 1.5; Cigarettes Per Day: 20; Second Hand Exposure: Yes (as kid); Do You Dip or Chew Tobacco: No; Hx Alcohol Use: No Hx Substance Use: Yes Substance Use Type Other:: medical card Preferred Language: Malaysian Communication Ability: Effective Visual Impairment: No Limitations Hearing Ability: Normal Air Tester Required: No Beliefs That Will Affect Care: None marital status: Current Living Situation: Spouse Current Living Situation Comment: current occupational status: retired Feels Safe at Home: Yes Childhood Exposure to Second-Hand Smoke: Yes Dental Care, Regularly: No Physical Activity Frequency: Does not Exercise Seatbelt Use: always Sunscreen Use: No Assistive Devices: CPAP, Denture - Upper, Denture - Lower, Glasses and Oxygen - Continuous Review of Systems Review of Systems: All systems reviewed & are unremarkable except as noted in HPI & below Physical Exam Physical Exam: General: No acute distress, nondiaphoretic. Frail and cachectic appearing. Appears older than current age. Cardiac: Regular rate and rhythm without murmurs gallops or rubs. No peripheral edema. Pulm: Decreased air entry bilaterally, without wheezes, rales or rhonchi. Normal respiratory effort. 98% on 3 L NC. Abdominal: Soft, distended, diffuse tenderness to palpation most prominent in the lower quadrants. Bowel sounds present. Neuro: A&O x3. No focal neurological deficits. Results & Data Results & Data Vital Signs (Past 12 Hours) Vital Signs Temp Pulse Pulse Resp BP BP Pulse Ox 09/12/24 13:41 112 H 24 97 09/12/24 13:31 134/46 L 09/12/24 13:30 85 19 09/12/24 13:15 105 H 18 98 09/12/24 12:53 85 20 99 09/12/24 12:38 154/87 H 09/12/24 12:38 90 23 98 09/12/24 12:20 81 20 96 09/12/24 12:14 106 H 19 95 09/12/24 12:02 104 H 19 95 09/12/24 12:00 166/98 H 09/12/24 11:57 109 H 20 96 09/12/24 11:54 108 H 19 96 09/12/24 11:48 89 18 97 09/12/24 11:30 113 H 21 97 09/12/24 11:30 163/98 H 09/12/24 11:24 119 H 27 H 97 09/12/24 11:24 158/101 H 09/12/24 11:24 119 H 20 158/101 H 97 09/12/24 11:18 106 H 98 09/12/24 11:15 119 H 23 96 09/12/24 11:13 119 H 09/12/24 11:07 168/91 H 09/12/24 10:40 97.9 F 116 H 20 156/94 H 87 L O2 Del Method O2 Flow Rate 09/12/24 13:41 09/12/24 13:31 09/12/24 13:30 09/12/24 13:15 09/12/24 12:53 09/12/24 12:38 09/12/24 12:38 09/12/24 12:20 09/12/24 12:14 09/12/24 12:02 09/12/24 12:00 09/12/24 11:57 09/12/24 11:54 09/12/24 11:48 Nasal Cannula 3 09/12/24 11:30 Nasal Cannula 3 09/12/24 11:30 09/12/24 11:24 Nasal Cannula 3 09/12/24 11:24 09/12/24 11:24 Nasal Cannula 3 09/12/24 11:18 Nasal Cannula 3 09/12/24 11:15 Nasal Cannula 3 09/12/24 11:13 09/12/24 11:07 09/12/24 10:40 Nasal Cannula 3 Laboratory Results Reviewed CBC with differential Reviewed coags Reviewed CMP, chemistries Diagnostic Findings Reviewed CT A/P Reviewed EKG Abdomen/Pelvis CT 09/12/24 11:[address] WITH IV CONTRAST CT DOSE: 278.4 mGy.cm HISTORY: diffuse abd pain TECHNIQUE: Multiaxial CT images of the abdomen and pelvis were performed following the IV administration of 90 cc of Optiray, A dose lowering technique was utilized adhering to the principles of ALARA. COMPARISON STUDY: 02/04/2020 FINDINGS: There is stable severe emphysema in the visualized lung bases. ABDOMEN: Liver, gallbladder, spleen, pancreas, and adrenal glands are unremarka ble. Kidneys show no hydronephrosis. There are moderate atherosclerotic calcifications. No abdominal aortic aneurysm. Pelvis: Uterus is either absent or extremely diminutive. No adnexal mass seen. U rinary bladder is mildly distended. There is extensive sigmoid diverticulosis. There is long segment wall thickening and inflammation measuring approximately 15 cm in length at the sigmoid colon consistent with acute diverticulitis. There is trace adjacent free fluid. No free air or abscess seen. No bowel obstruction. There are mild lumbar and hip degenerative changes. IMPRESSION: Extensive acute uncomplicated sigmoid diverticulitis. ACT 112: Negative or not required by law. The above report was generated using voice recognition software. It may contain grammatical, syntax or spelling errors. Electronically signed by: Emanuel Foley M.D. 09/12/2024 12:39 PM PG Care Time/CCT Total # of Minutes Spent Total Time Spent with Patient: Total time spent is greater than 50% in coordination of care (as documented) at patient's floor/unit and/or counseling patient: Coding Level of Care Code 98770 INT INP/OBS CARE MIN Diagnoses Acute diverticulitis K57.92 Stage 4 very severe COPD by GOLD classification J44.9 Chronic respiratory failure with hypoxia J96.11 Essential hypertension I10 Hypertension type: essential hypertension Severe malnutrition E43 Anxiety F41.9 (4) Hypertension Hypertension type: essential hypertension Qualified Code(s): I10 - Essential (primary) hypertension
[2024-09-12] MEDS ORDERED: HYDROmorphone INJ 0.5 MG/0.5 ML SYR IV PRN (18:26)
[2024-09-12] MEDS ORDERED: ACETAMINOPHEN 1,000 MG/100 ML VIAL IV PRN (18:26)
[2024-09-12] MEDS ORDERED: ALBUTEROL HFA 8 GM INHALER INH PRN (18:26)
[2024-09-12] MEDS: HYDROmorphone INJ 0.5 MG/0.5 ML SYR IV PRN (19:48)
[2024-09-12] MEDS: SODIUM CHLORIDE 0.9% 1,000 ML IV SCH (19:50)
[2024-09-12] MEDS: PIPERACILLIN/TAZOBACTAM 4.5 GM/100 ML BAG IV SCH (19:51)
[2024-09-12] MEDS: ONDANSETRON INJ 2 MG/ML 2 ML VIAL IV PRN (19:53)
[2024-09-12] MEDS: PANTOprazole 40 MG TAB PO SCH (20:06)
[2024-09-12] MEDS: ATORVASTATIN 40 MG TAB PO SCH (20:06)
[2024-09-12] MEDS: ESCITALOPRAM OXALATE 20 MG TAB PO SCH (20:06)
[2024-09-12] MEDS: LORazepam 0.5 MG TAB PO PRN (20:11)
[2024-09-12] MEDS: ALBUT/IPRATROP 3MG/0.5MG NEB 3 ML VIAL INH SCH (20:32)
[2024-09-12 23:20] LABS: Appearance Urine Clear (Clear); Bacteria Urine Automated None Seen (None Seen); Bilirubin Urine Negative (Negative); Blood Urine 1+ (Negative); Cast Urine Automated 0-2 /lpf (0-2); Color Urine Yellow; Glucose Urine UA Negative (Negative); Ketones Urine 3+ (Negative); Leukocyte Esterase Urine Trace (Negative); Nitrite Urine Negative (Negative); Protein Urine 1+ (Negative); RBC Urine Automated >20 /hpf (0-2); Specific Gravity Urine 1.044 (1.000-1.030); Urobilinogen Urine Negative (Negative); pH Urine 5.5 (4.5-7.5)
[2024-09-13] MEDS: ACETAMINOPHEN 10MG/ML Custom 600 MG in EMPTY BAG 0 ML IV PRN (05:07)
[2024-09-13 05:30] LABS: Basophils # (auto) 0.01 K/uL (0.00-0.20); Basophils % (auto) 0.1 %; Eosinophils # (auto) 0.01 K/uL (0.00-0.50); Eosinophils % (auto) 0.1 %; Hematocrit (blood only) 28.6 % (37.0-47.0); Hemoglobin 9.4 g/dl (12.0-16.0); Immature Granulocytes # (auto) 0.04 K/uL (0.01-0.20); Immature Granulocytes % (auto) 0.4 %; Lymphocytes % (auto) 10.1 %; Mean Corpuscular Hgb Conc 32.9 g/dL (32.0-36.0); Mean Corpuscular Volume 91.4 fL (80.0-100.0); Mean Platelet Volume 9.9 fL (9.4-12.4); Monocytes # (auto) 0.63 K/uL (0.11-0.59); Monocytes % (auto) 5.8 %; Neutrophils # (auto) 9.14 K/uL (1.40-6.50); Neutrophils % (auto) 83.5 %; Platelet Count 186 K/uL (130-400); RDW Coefficient of Variation 12.6 % (11.5-14.5); RDW Standard Deviation 41.6 fL (36.4-46.3); Red Blood Count 3.13 M/uL (4.20-5.40); White Blood Count 10.93 K/ul (4.8-10.8)
[2024-09-13 05:48] LABS: Albumin Globulin Ratio 1.3 (0.9-2); Albumin Level 2.9 gm/dl (3.4-5.0); BUN Creatinine Ratio 13.1 (10-20); Bilirubin,Total 0.8 mg/dl (0.2-1.0); Calcium 7.9 mg/dl (8.6-10.3); Creatinine Clr Calc Pharmacy 59.7 ml/min; Globulin 2.2 gm/dl (2.5-4.0); Potassium 3.3 mmol/L (3.5-5.1); Total Protein 5.1 gm/dl (6.0-8.3)
[2024-09-13] MEDS: ROFLUMILAST 500 MCG TAB PO SCH (08:01)
[2024-09-13] MEDS: AZITHROMYCIN 250 MG TAB PO SCH (08:01)
[2024-09-13] MEDS: guaiFENesin 600 MG TABCR PO PRN (08:01)
[2024-09-13] MEDS: ASPIRIN 81 MG ECTAB PO SCH (08:01)
[2024-09-13] MEDS: CHOLECALCIFEROL 25 MCG (1000 UNITS) TAB PO SCH (08:02)
[2024-09-13] MEDS: MIRTAZAPINE SOLTAB 15 MG PO SCH (08:02)
[2024-09-13] MEDS: HEPARIN SOD 5,000 UNIT/0.5 ML VIAL SC SCH (08:05)
--- NOTE | 2024-09-13 08:35 | Hospitalist Progress Note ---
Date of Service September 13, 2024 Assessment & Plan (1) Acute diverticulitis: (2) Stage 4 very severe COPD by GOLD classification: (3) Chronic respiratory failure with hypoxia: Plan: stage 4 copd followed by palliative care (4) Hypertension: Plan: currently normotensive (5) Severe malnutrition: Plan: Pulmonary cachexia due to COPD: BMI 17.1 (6) Anxiety: Plan: manageable (7) Dyspnea and respiratory abnormalities: (8) Weakness generalized: (9) Advanced care planning/counseling discussion: Plan: : Madi reaffirms DNR/DNI. Would like treatment for diverticulitis and return home. home with some home health nursing vs hospice. she is open to home health nursing but not yet ready fo hospice (this si c/w prior discussions in clinic) (10) Palliative care by specialist: (11) Pulmonary cachexia due to COPD: (12) Abdominal pain: Plan Madi is a pleasant 63-year-old female with past medical history of nd-stage COPD, chronic respiratory failure with hypoxia, CAD s/p 2 IMELDA, dyslipidemia, hypertension, anxiety, severe malnutrition, and palliative care program. She presented from home with 1 week of progressive abdominal pain. She reports decreased appetite over this time without much oral intake. Ongoing mild nausea and constant aching abdominal pain. She has never had a colonoscopy, but reports she did Cologuard 2-3 years ago and believes there were no abnormalities noted. CT A/P on admission reveals extensive acute uncomplicated sigmoid diverticulitis (long segment wall thickening and inflammation measuring approximately 15 cm). Trace adjacent free fluid, no free air or abscess seen. No bowel obstruction. #Diverticulitis Continue Zosyn started in ED N.p.o. (ice chips, sips of meds okay) Start maintenance IV fluids with NSS at 80 cc/hour Zofran 4 mg IV Q6H PRN nausea/vomiting Pain regimen with Tylenol 1000 mg IV Q8H PRN mild pain/fever, Dilaudid 0.25 mg IV Q6H PRN moderate pain, Dilaudid 0.50 mg IV Q6H PRN severe pain Recommend outpatient colonoscopy in 6-8 weeks #End-stage COPD/chronic respiratory failure/hypoxia/pulmonary cachexia due to COPD Follows with palliative care and pulmonology (Dr. Pinzon) for such No acute exacerbation, patient denies worsening of SOB or chest pain Continue home regimen Uses Air Vent HS - to bring in patient's home machine to use inpatient #Hypertension/hyperlipidemia/CAD Continue aspirin 81 mg daily, atorvastatin 40 mg HS Most recent echo 01/2023 with EF 55-60%, severe hypokinesis to akinesis of the apex, no LVH, mild AR, mild MR #Severe malnutrition, chronic - Secondary to advanced COPD Continue mirtazapine 15 mg daily Dietitian consulted. Recommend adding Boost TIDM (patient prefers vanilla) when diet advancement permits #GERD Continue pantoprazole 40 mg twice daily #Anxiety Continue escitalopram 20 mg daily, lorazepam 0.25 mg QID PRN anxiety VTE PPx: Lovenox 40 mg SQ daily CODE STATUS: DNR/DNI Admission and Anticipated Discharge Date Admission Date: September 12, 2024 Subjective admitted for abdominal pain due to diverticulitis currently feeling a lot better than when she came in Physical Exam Physical Exam: onstitutional: + ill appearing, + cachectic, + fra il appearing, well groomed and coope rative Eyes: PERRL, conjunctiva e normal, anicteri c sclerae ENMT: external ear and n ose normal, oropha rynx normal Mouth : + dry oral mucou s membranes Neck: trachea midline, n o thyromegaly Respiratory: + labored breathi ng, + uses accesso ry muscles, + coug h (dry), + prolong ed expiratory phas e and symmetric ch est movement Ausc ultation: + dimini shed lung sounds ( markedly dim bases ); no crackles, no rales, no rhonchi and no wheezes Cardiovascular: Rate/Rhythm: + tac hycardic Gastrointestinal ( Abdomen): Inspection/Auscult ation: + abdomen d istended and + sca phoid Percussion/ Palpation: + abdom en tender, + guard ing and abdomen so ft Musculoskeletal: Head/Neck/Chest: n elaine supple Extrem ities: + limited R OM of extremities and + muscle atrop hy Gait: + antalg ic gait Skin: + turgor decrease d and + pallor Neurologic: plantar reflexes i ntact bilaterally and moves all extr emities Psychiatric: Orientation: alert and oriented x 3 Apperance: approp riately dressed, a ppropriately groom ed and appeared st ated age Eye Cont act: good eye cont act Speech: loida hameed rate/rhythm/volu me of speech Affe ct: + anxious affe ct and + tearful a ffect Mood: + dep ressed mood Thoug ht Process: linear /logical thought p rocess and + perse veration Thought Content: + hopeles sness and + loneli ness Cognition: r ecent memory gross ly intact, remote memory grossly int act, attention benji ssly intact and la nguage grossly int act Estimated Int elligence: consist ent with education level Insight: g ood insight Judgm ent: good judgemen t Results & Data Results & Data Vital Signs (Past 12 Hours) Vital Signs Temp Pulse Resp BP Pulse Ox O2 Del Method O2 Flow Rate 09/13/24 07:21 36.8 C 103 H 18 118/70 98 Nasal Cannula 3 09/13/24 06:56 94 H 16 99 Nasal Cannula 4 09/13/24 01:41 108 H 18 96 Nasal Cannula 4 09/12/24 22:26 36.4 C L 100 H 20 115/73 91 CPAP 09/12/24 21:13 Nasal Cannula 3 PG Care Time/CCT Total # of Minutes Spent Total Time Spent with Patient: Total time spent is greater than 50% in coordination of care (as documented) at patient's floor/unit and/or counseling patient: Coding Level of Care Code 29575 SUB INP/OBS CARE 235MIN Diagnoses Acute diverticulitis K57.92 Stage 4 very severe COPD by GOLD classification J44.9 Chronic respiratory failure with hypoxia J96.11 Essential hypertension I10 Hypertension type: essential hypertension Severe malnutrition E43 Anxiety F41.9 Dyspnea and respiratory abnormalities R06.00; R06.89 Weakness generalized R53.1 Advanced care planning/counseling discussion Z71.89 Palliative care by specialist Z51.5 Pulmonary cachexia due to COPD R64; J44.9 Abdominal pain R10.9 (4) Hypertension Hypertension type: essential hypertension Qualified Code(s): I10 - Essential (primary) hypertension
[2024-09-13] MEDS ORDERED: ENOXAPARIN INJ 40 MG/0.4 ML SYR SQ SCH (09:00)
--- NOTE | 2024-09-13 10:35 | Palliative Care Consultation ---
Date of Consultation September 13, 2024 Assessment & Plan (1) Dyspnea and respiratory abnormalities: (2) Weakness generalized: (3) Advanced care planning/counseling discussion: 20 min face to face ACP at bedside: Madi winklerirms DNR/DNI. Would like treatment for diverticulitis and return home. We reviewed option of going home with some home health nursing vs hospice. she is open to home health nursing but not yet ready fo hospice (this si c/w prior discussions in clinic) (4) Palliative care by specialist: (5) Pulmonary cachexia due to COPD: (6) Abdominal pain: Plan As above. Pll Med office will arrange OP clinic follow up within 2 weeks of DC Thank you for allowing us to participate in the ongoing care of this patient. Please page with any additional concerns. Karen Givens DNP Director, Palliative Medicine History of Present Illness Reason for Consultation: Continuity of Care Attending Physician: Argentina Mcfarland MD History of Present Illness Madi is a 63yo female with very adv COPD who is presently admitted with sigmoid colitis on bowel rest, allowing sips of fluids/ice chips intermittent pain no resp complaints, breathing is at baseline Allergies Allergy/AdvReac Type Severity Reaction Status Date / Time bupropion [From Wellbutrin] Allergy Severe Unknown Verified 09/12/24 14:15 sulfamethoxazole Allergy Severe THROAT AND Verified 09/12/24 14:15 EARS SWELL trimethoprim Allergy Severe THROAT AND Verified 09/12/24 14:15 EARS SWELL codeine AdvReac Intermediate STOMACH Verified 09/12/24 14:15 CRAMPS, "KNOCKS ME OUT FOR DAYS" Home Medications Medication Instructions Recorded Confirmed Type aspirin 81 mg tablet,delayed 81 mg PO Q OTHER DAY 04/25/19 09/12/24 History release (Adult Low Dose Aspirin) cholecalciferol (vitamin D3) 25 25 mcg PO QAM 03/26/21 09/12/24 History mcg (1,000 unit) capsule ascorbic acid 1,000 1 ea PO DAILY PRN Cold Symptoms 04/03/22 09/12/24 History qk-hzwlbrtgsbfy-zpzmccle powder effervescent pack (Emergen-C) Medical Marijuana 1 dose PO DIRECTED PRN Anxiety 06/22/22 09/12/24 History guaifenesin 600 mg tablet, 600 mg PO BID PRN congestion #60 12/09/22 09/12/24 Rx extended release 12 hr (Mucinex) tabs Portable Oxygen #1 ea 07/29/23 05/22/24 Rx Portable Oxygen #1 ea 01/28/24 05/22/24 Rx azithromycin 250 mg tablet 250 mg PO 3XWK #36 tabs 01/28/24 09/12/24 Rx atorvastatin 40 mg tablet 40 mg PO HS #90 tabs 05/22/24 09/12/24 Rx escitalopram oxalate 20 mg tablet 20 mg PO HS #90 tabs 05/22/24 09/12/24 Rx pantoprazole 40 mg tablet,delayed 40 mg PO BID #180 tabs 05/22/24 09/12/24 Rx release roflumilast 500 mcg tablet 500 mcg PO DAILY #90 tabs 07/11/24 09/12/24 Rx (Daliresp) albuterol sulfate 90 mcg/actuation 2 inh inhalation QID PRN shortness 07/18/24 09/12/24 Rx aerosol inhaler of breath or wheezing 3 months #8.5 grams ipratropium 0.5 mg-albuterol 3 mg 3 ml inhalation Q6H end stage COPD 07/18/24 09/12/24 Rx (2.5 mg base)/3 mL nebulization 3 months #180 mL soln lorazepam 0.5 mg tablet (Ativan) 0.25 mg (1/2 x 0.5 mg) PO QID PRN 08/14/24 09/12/24 Rx anxiety 1 month #90 tabs mirtazapine 15 mg disintegrating 15 mg PO HS anorexia 09/12/24 09/12/24 History tablet morphine 20 mg/5 mL (4 mg/mL) oral See Rx Instructions .Route 09/12/24 09/12/24 History solution .COMPLEX PRN Shortness Of Breath Patient History Medical History (Updated 09/12/24 @ 12:48 by Mikayla Hanley MD) Sleep apnea cpap On home oxygen therapy 3LPM Pneumonia due to COVID-19 virus May/Jun 2021 > hospitalized at [facility] Constipation Colitis resolved per pt Myocardial infarct November 2011 Surgical History History of nasal surgery History of nasal cauterization History of tonsillectomy History of hysterectomy partial History of appendectomy Family History Father Lung cancer Mother Stroke Brother Enlarged liver Grandmother (Maternal) Colorectal cancer Other Diabetes Hypertension Denies family history of Ovarian cancer Prostate cancer Breast cancer Social History Smoking Status: Never smoker Tobacco Type: Cigarettes Age Started Using Tobacco: 8; Age Quit Using Tobacco: 52; packs per day: 1.5; Cigarettes Per Day: 20; Second Hand Exposure: No; Do You Dip or Chew Tobacco: No; Hx Alcohol Use: No Hx Substance Use: No Preferred Language: Kinyarwanda Communication Ability: Effective Visual Impairment: No Limitations Hearing Ability: Normal 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[employer] Required: No Beliefs That Will Affect Care: None marital status: Current Living Situation: Spouse Current Living Situation Comment: current occupational status: retired Feels Safe at Home: Yes Childhood Exposure to Second-Hand Smoke: Yes Dental Care, Regularly: No Physical Activity Frequency: Does not Exercise Seatbelt Use: always Sunscreen Use: No Assistive Devices: Oxygen - Continuous and Walker Review of Systems Review of Systems: All systems reviewed & are unremarkable except as noted in Subjective Physical Exam Constitutional: + ill appearing, + cachectic, + frail ap pearing, well groomed and cooperative Eyes: PERRL, conjunctivae normal, anicteric sclerae ENMT: external ear and nose normal, oropharynx normal Mouth: + dry oral mucous membranes Neck: trachea midline, no thyromegaly Respiratory: + labored breathing, + uses accessory mu scles, + cough (dry), + prolonged expiratory phase and symmetric chest movement Auscultation: + diminished lung sounds (markedly dim bases); no crackles, no rales, no rhonchi and no wheezes Cardiovascular: Rate/Rhythm: + tachycardic Gastrointestinal (Abdomen): Inspection/Auscultation: + abdomen distended and + scaphoid Percussion/Palpation: + abdomen tender, + guarding and abdomen soft Musculoskeletal: Head/Neck/Chest: neck supple Extremities: + limited ROM of extremities and + muscle atrophy Gait: + antalgic gait Skin: + turgor decreased and + pallor Neurologic: plantar reflexes intact bilaterally and moves all extremities Psychiatric: Orientation: alert and oriented x 3 Apperance: appropriately dressed, appropriately groomed and appeared stated age Eye Contact: good eye contact Speech: normal rate/rhythm/volume of speech Affect: + anxious affect and + tearful affect Mood: + depressed mood Thought Process: linear/logical thought process and + perseveration Thought Content: + hopelessness and + loneliness Cognition: recent memory grossly intact, remote memory grossly intact, attention grossly intact and language grossly intact Estimated Intelligence: consistent with education level Insight: good insight Judgment: good judgement Results & Data Vital Signs (Past 12 Hours) Vital Signs Temp Pulse Resp BP Pulse Ox O2 Del Method O2 Flow Rate 09/13/24 08:15 Nasal Cannula 4 09/13/24 07:21 36.8 C 103 H 18 118/70 98 Nasal Cannula 3 09/13/24 06:56 94 H 16 99 Nasal Cannula 4 09/13/24 01:41 108 H 18 96 Nasal Cannula 4 Laboratory Results 09/13/24 09/12/24 09/12/24 Range/Units 05:14 22:35 11:15 WBC 10.93 H 12.35 H (4.8-10.8) K/ul RBC 3.13 L 3.87 L (4.20-5.40) M/uL Hgb 9.4 L 11.7 L (12.0-16.0) g/dl Hct 28.6 L 35.0 L (37.0-47.0) % MCV 91.4 90.4 (80.0-100.0) fL MCH 30.0 30.2 (25.0-34.0) pg MCHC 32.9 33.4 (32.0-36.0) g/dL RDW Std Deviation 41.6 41.3 (36.4-46.3) fL RDW Coeff of Luis 12.6 12.5 (11.5-14.5) % Plt Count 186 231 (130-400) K/uL MPV 9.9 10.2 (9.4-12.4) fL Immature Gran % (Auto) 0.4 0.3 % Neut % (Auto) 83.5 88.6 % Lymph % (Auto) 10.1 7.3 % Cuming % (Auto) 5.8 3.6 % Eos % (Auto) 0.1 0.1 % Baso % (Auto) 0.1 0.1 % Neut # (Auto) 9.14 H 10.95 H (1.40-6.50) K/uL Lymph # (Auto) 1.10 L 0.90 L (1.20-3.40) K/uL Cuming # (Auto) 0.63 H 0.44 (0.11-0.59) K/uL Eos # (Auto) 0.01 0.01 (0.00-0.50) K/uL Baso # (Auto) 0.01 0.01 (0.00-0.20) K/uL Immature Gran # (Auto) 0.04 0.04 (0.01-0.20) K/uL PT 11.1 (9.0-12.0) Seconds INR 1.0 (0.9-1.1) Sodium 140 139 (136-145) mmol/L Potassium 3.3 L 3.7 (3.5-5.1) mmol/L Chloride 103 100 (98-107) mmol/L Carbon Dioxide 28 32 (21-32) mmol/L Anion Gap 9 7 (3-11) BUN 8 9 (6-23) mg/dl Creatinine 0.61 0.54 L (0.6-1.2) mg/dl Est Cr Clr Drug Dosing 59.7 67.4 ml/min eGFR 99.15 102.11 BUN/Creatinine Ratio 13.1 16.7 (10-20) Glucose 112 H 137 H (70-99(Fasting)) mg/dl Lactate 0.8 (0.4-2.0) mmol/L Calcium 7.9 L 8.8 (8.6-10.3) mg/dl Total Bilirubin 0.8 0.8 (0.2-1.0) mg/dl AST 14 18 (13-39) U/L ALT 9 11 (7-52) U/L Alkaline Phosphatase 58 75 (34-104) U/L Troponin I High Sens 6.9 (0-14) pg/ml Total Protein 5.1 L 6.3 (6.0-8.3) gm/dl Albumin 2.9 L 3.8 (3.4-5.0) gm/dl Globulin 2.2 L 2.5 (2.5-4.0) gm/dl Albumin/Globulin Ratio 1.3 1.5 (0.9-2) Lipase 16 (11-82) U/L Urine Color Yellow Urine Appearance Clear (Clear) Urine pH 5.5 (4.5-7.5) Ur Specific [place] 1.044 H (1.000-1.030) Urine Protein 1+ H (Negative) Urine Glucose (UA) Negative (Negative) Urine Ketones 3+ H (Negative) Urine Blood 1+ H (Negative) Urine Nitrite Negative (Negative) Urine Bilirubin Negative (Negative) Urine Urobilinogen Negative (Negative) Ur Leukocyte Esterase Trace H (Negative) Urine WBC (Auto) 11-20 H (0-5) /hpf Urine RBC (Auto) >20 H (0-2) /hpf U Hyaline Cast (Auto) 0-2 (0-2) /lpf U Epithel Cells (Auto) 3-5 H (0-2) /hpf Urine Bacteria (Auto) None Seen (None Seen) Diagnostic Findings Abdomen/Pelvis CT 09/12/24 11:[address] WITH IV CONTRAST CT DOSE: 278.4 mGy.cm HISTORY: diffuse abd pain TECHNIQUE: Multiaxial CT images of the abdomen and pelvis were performed following the IV administration of 90 cc of Optiray, A dose lowering technique was utilized adhering to the principles of ALARA. COMPARISON STUDY: 02/04/2020 FINDINGS: There is stable severe emphysema in the visualized lung bases. ABDOMEN: Liver, gallbladder, spleen, pancreas, and adrenal glands are unremarkable. Kidneys show no hydronephrosis. There are moderate atherosclerotic calcifications. No abdominal aortic aneurysm. Pelvis: Uterus is either absent or extremely diminutive. No adnexal mass seen. Urinary bladder is mildly distended. There is extensive sigmoid diverticulosis. There is long segment wall thickening and inflammation measuring approximately 15 cm in length at the sigmoid colon consistent with acute diverticulitis. There is trace adjacent free fluid. No free air or abscess seen. No bowel obstruction. There are mild lumbar and hip degenerative changes. IMPRESSION: Extensive acute uncomplicated sigmoid diverticulitis. ACT 112: Negative or not required by law. The above report was generated using voice recognition software. It may contain grammatical, syntax or spelling errors. Electronically signed by: Emanuel Foley M.D. 09/12/2024 12:39 PM PG Care Time/CCT Total # of Minutes Spent Total Time Spent with Patient: Total time spent is greater than 50% in coordination of care (as documented) at patient's floor/unit and/or counseling patient: I spent 65 minutes overall addressing this case: 10 min in medical data review/discussion with referring provider(s) and/or preparation for the visit 15 min in direct interaction with the patient/exam 20 min in Advance Care Planning/Goals of Care discussions as detailed above in note (must be >16min) 10 min in subsequent review and synthesis of assessment and plan 10 min communicating with other providers regarding the patient's case: primary team Advanced Care Planning [id number] Advanced Care Planning 30 [place] [address] IN/OBS CONSULT LVL 3,45M (25 - SIGNIFICANT, SEPARATELY IDENTIFIABLE ) Patient Type New Medical Decision Making High Complexity Diagnoses Dyspnea and respiratory abnormalities R06.00; R06.89 Weakness generalized R53.1 Advanced care planning/counseling discussion Z71.89 Palliative care by specialist Z51.5 Pulmonary cachexia due to COPD R64; J44.9 Abdominal pain R10.9 Additional Codes Advanced Care Planning - 92345 Advanced Care Planning 30 Min: 98068 Advanced Care Planning 30 Min ([id number]) Comment [id number], [id number]
[2024-09-13] MEDS: COUGH DROP (SUGAR FREE) LOZ 24 LOZ/1 BOX BUCCAL STA (21:44)
--- NOTE | 2024-09-13 21:49 | Electrocardiogram Report ---
Test Reason : Blood Pressure : */* mmHG Vent. Rate : 121 BPM Atrial Rate : 121 BPM P-R Int : 144 ms QRS Dur : 74 ms QT Int : 296 ms P-R-T Axes : 92 86 -27 degrees QTcB Int : 420 ms Sinus tachycardia Right atrial enlargement Nonspecific ST and T wave abnormality Abnormal ECG When compared with ECG of 12-May-2023 19:40, Nonspecific T wave abnormality now evident in Inferior leads Nonspecific T wave abnormality, worse in Anterolateral leads Confirmed by Tripp Kamara ([id number]) on 09/13/2024 9:49:06 PM Referred By: REFERRED SELF Confirmed By: Tripp Kamara
[2024-09-14 04:49] LABS: Hematocrit (blood only) 26.9 % (37.0-47.0); Mean Corpuscular Hemoglobin 30.4 pg (25.0-34.0); Mean Corpuscular Hgb Conc 33.5 g/dL (32.0-36.0); Mean Corpuscular Volume 90.9 fL (80.0-100.0); Mean Platelet Volume 10.2 fL (9.4-12.4); Platelet Count 189 K/uL (130-400); RDW Coefficient of Variation 12.3 % (11.5-14.5); RDW Standard Deviation 40.4 fL (36.4-46.3); Red Blood Count 2.96 M/uL (4.20-5.40); White Blood Count 8.55 K/ul (4.8-10.8)
[2024-09-14 05:04] LABS: BUN Creatinine Ratio 8.9 (10-20); Calcium 7.8 mg/dl (8.6-10.3); Creatinine Clr Calc Pharmacy 80.9 ml/min; Potassium 2.8 mmol/L (3.5-5.1)
[2024-09-14] MEDS: POTASSIUM CHLORIDE CRTAB 20 MEQ TABCR PO STA ×3 (07:48→08:55)
[2024-09-14 12:10] LABS: Potassium 3.6 mmol/L (3.5-5.1)
--- NOTE | 2024-09-14 16:58 | Hospitalist Progress Note ---
Date of Service September 14, 2024 Assessment & Plan (1) Acute diverticulitis: Plan: Continue patient on Zosyn and Zithromax white counts are trending down (2) Stage 4 very severe COPD by GOLD classification: Plan: Follow palliative care (3) Chronic respiratory failure with hypoxia: Plan: stage 4 copd followed by palliative care (4) Hypertension: Plan: currently normotensive (5) Severe malnutrition: Plan: Pulmonary cachexia due to COPD: BMI 17.1 (6) Anxiety: Plan: manageable (7) Dyspnea and respiratory abnormalities: (8) Weakness generalized: (9) Advanced care planning/counseling discussion: Plan: : Madi reaffirms DNR/DNI. Would like treatment for diverticulitis and return home. home with some home health nursing vs hospice. she is open to home health nursing but not yet ready fo hospice (this si c/w prior discussions in clinic) (10) Palliative care by specialist: (11) Pulmonary cachexia due to COPD: (12) Abdominal pain: Plan Madi is a pleasant 63-year-old female with past medical history of nd-stage COPD, chronic respiratory failure with hypoxia, CAD s/p 2 IMELDA, dyslipidemia, hypertension, anxiety, severe malnutrition, and palliative care program. She presented from home with 1 week of progressive abdominal pain. She reports decreased appetite over this time without much oral intake. Ongoing mild nausea and constant aching abdominal pain. She has never had a colonoscopy, but reports she did Cologuard 2-3 years ago and believes there were no abnormalities noted. CT A/P on admission reveals extensive acute uncomplicated sigmoid diverticulitis (long segment wall thickening and inflammation measuring approximately 15 cm). Trace adjacent free fluid, no free air or abscess seen. No bowel obstruction. #Diverticulitis Continue Zosyn started in ED Clear liquid diet advance as tolerated #End-stage COPD/chronic respiratory failure/hypoxia/pulmonary cachexia due to COPD Follows with palliative care and pulmonology (Dr. Pinzon) for such No acute exacerbation, patient denies worsening of SOB or chest pain Continue home regimen Uses Air Vent HS - to bring in patient's home machine to use inpatient #Hypertension/hyperlipidemia/CAD Continue aspirin 81 mg daily, atorvastatin 40 mg HS Most recent echo 01/2023 with EF 55-60%, severe hypokinesis to akinesis of the apex, no LVH, mild AR, mild MR #Severe malnutrition, chronic - Secondary to advanced COPD Continue mirtazapine 15 mg daily Dietitian consulted. Recommend adding Boost TIDM (patient prefers vanilla) when diet advancement permits #GERD Continue pantoprazole 40 mg twice daily #Anxiety Continue escitalopram 20 mg daily, lorazepam 0.25 mg QID PRN anxiety VTE PPx: Lovenox 40 mg SQ daily CODE STATUS: DNR/DNI Admission and Anticipated Discharge Date Admission Date: September 12, 2024 Subjective admitted for abdominal pain due to diverticulitis currently feeling a lot better than when she came in Patient tolerated liquid diet will advance her diet as tolerated she was hypokalemic electrolytes were replaced Results & Data Results & Data Vital Signs (Past 12 Hours) Vital Signs Temp Pulse Resp BP Pulse Ox O2 Del Method O2 Flow Rate 09/14/24 15:18 37.1 C 126 H 18 152/84 H 96 Nasal Cannula 3 09/14/24 13:05 101 H 18 98 Nasal Cannula 3 09/14/24 08:00 Nasal Cannula 4 09/14/24 07:54 36.7 C 128 H 17 138/72 94 Nasal Cannula 4 09/14/24 07:21 99 H 20 98 Nasal Cannula 3 PG Care Time/CCT Total # of Minutes Spent Total Time Spent with Patient: Total time spent is greater than 50% in coordination of care (as documented) at patient's floor/unit and/or counseling patient: Coding Level of Care Code 43630 SUB INP/OBS CARE 2/35MIN Diagnoses Acute diverticulitis K57.92 Stage 4 very severe COPD by GOLD classification J44.9 Chronic respiratory failure with hypoxia J96.11 Essential hypertension I10 Hypertension type: essential hypertension Severe malnutrition E43 Anxiety F41.9 Dyspnea and respiratory abnormalities R06.00; R06.89 Weakness generalized R53.1 Advanced care planning/counseling discussion Z71.89 Palliative care by specialist Z51.5 Pulmonary cachexia due to COPD R64; J44.9 Abdominal pain R10.9 (4) Hypertension Hypertension type: essential hypertension Qualified Code(s): I10 - Essential (primary) hypertension
[2024-09-14] MEDS: LACTOBACILLUS ACIDOPHILUS 1 GM PACK PO SCH (17:29)
[2024-09-14] MEDS: POTASSIUM CHLORIDE CRTAB 20 MEQ TABCR PO SCH (20:15)
[2024-09-14 22:49] LABS: C Reactive Protein 24.01 mg/dl (0-0.5)
[2024-09-15 05:37] LABS: Hematocrit (blood only) 28.5 % (37.0-47.0); Hemoglobin 9.6 g/dl (12.0-16.0); Mean Corpuscular Hemoglobin 29.9 pg (25.0-34.0); Mean Corpuscular Hgb Conc 33.7 g/dL (32.0-36.0); Mean Corpuscular Volume 88.8 fL (80.0-100.0); Mean Platelet Volume 9.9 fL (9.4-12.4); Platelet Count 224 K/uL (130-400); RDW Coefficient of Variation 12.3 % (11.5-14.5); RDW Standard Deviation 40.1 fL (36.4-46.3); Red Blood Count 3.21 M/uL (4.20-5.40)
[2024-09-15 05:51] LABS: BUN Creatinine Ratio 4.3 (10-20); Calcium 8.1 mg/dl (8.6-10.3); Creatinine Clr Calc Pharmacy 79.1 ml/min
--- NOTE | 2024-09-15 19:28 | Hospitalist Progress Note ---
Date of Service September 15, 2024 Assessment & Plan (1) Acute diverticulitis: Plan: Continue patient on Zosyn and Zithromax white counts are trending down (2) Stage 4 very severe COPD by GOLD classification: Plan: Follow palliative care (3) Chronic respiratory failure with hypoxia: Plan: stage 4 copd followed by palliative care (4) Hypertension: Plan: currently normotensive (5) Severe malnutrition: Plan: Pulmonary cachexia due to COPD: BMI 17.1 (6) Anxiety: Plan: manageable (7) Dyspnea and respiratory abnormalities: (8) Weakness generalized: (9) Advanced care planning/counseling discussion: Plan: : Madi reaffirms DNR/DNI. Would like treatment for diverticulitis and return home. home with some home health nursing vs hospice. she is open to home health nursing but not yet ready fo hospice (this si c/w prior discussions in clinic) (10) Palliative care by specialist: (11) Pulmonary cachexia due to COPD: (12) Abdominal pain: Plan Madi is a pleasant 63-year-old female with past medical history of nd-stage COPD, chronic respiratory failure with hypoxia, CAD s/p 2 IMELDA, dyslipidemia, hypertension, anxiety, severe malnutrition, and palliative care program. She presented from home with 1 week of progressive abdominal pain. She reports decreased appetite over this time without much oral intake. Ongoing mild nausea and constant aching abdominal pain. She has never had a colonoscopy, but reports she did Cologuard 2-3 years ago and believes there were no abnormalities noted. CT A/P on admission reveals extensive acute uncomplicated sigmoid diverticulitis (long segment wall thickening and inflammation measuring approximately 15 cm). Trace adjacent free fluid, no free air or abscess seen. No bowel obstruction. #Diverticulitis Continue Zosyn started in ED Clear liquid diet advance as tolerated Today will start her on solid diet #End-stage COPD/chronic respiratory failure/hypoxia/pulmonary cachexia due to COPD Follows with palliative care and pulmonology (Dr. Pinzon) for such No acute exacerbation, patient denies worsening of SOB or chest pain Continue home regimen Uses Air Vent HS - to bring in patient's home machine to use inpatient #Hypertension/hyperlipidemia/CAD Continue aspirin 81 mg daily, atorvastatin 40 mg HS Most recent echo 01/2023 with EF 55-60%, severe hypokinesis to akinesis of the apex, no LVH, mild AR, mild MR #Severe malnutrition, chronic - Secondary to advanced COPD Continue mirtazapine 15 mg daily Dietitian consulted. Recommend adding Boost TIDM (patient prefers vanilla) when diet advancement permits #GERD Continue pantoprazole 40 mg twice daily #Anxiety Continue escitalopram 20 mg daily, lorazepam 0.25 mg QID PRN anxiety VTE PPx: Lovenox 40 mg SQ daily CODE STATUS: DNR/DNI Admission and Anticipated Discharge Date Admission Date: September 12, 2024 Subjective admitted for abdominal pain due to diverticulitis currently feeling a lot better than when she came in Patient tolerated liquid diet will advance her diet as tolerated she was hypokalemic electrolytes were replaced Patient feels like she has significant gas will prescribe some simethicone also asking to increase her diet and get some boost Physical Exam Physical Exam: Constitutional: + ill appearing, + cachectic, + fra il appearing, well groomed and coope rative Eyes: PERRL, conjunctiva e normal, anicteri c sclerae ENMT: external ear and n ose normal, oropha rynx normal Mouth : + dry oral mucou s membranes Neck: trachea midline, n o thyromegaly Respiratory: + labored breathi ng, + uses accesso ry muscles, + coug h (dry), + prolong ed expiratory phas e and symmetric ch est movement Ausc ultation: + dimini shed lung sounds ( markedly dim bases ); no crackles, no rales, no rhonchi and no wheezes Cardiovascular: Rate/Rhythm: + tac hycardic Gastrointestinal ( Abdomen): Inspection/Auscult ation: + abdomen d istended and + sca phoid Percussion/ Palpation: + abdom en tender, + guard ing and abdomen so ft Musculoskeletal: Head/Neck/Chest: n elaine supple Extrem ities: + limited R OM of extremities and + muscle atrop hy Gait: + antalg ic gait Skin: + turgor decrease d and + pallor Neurologic: plantar reflexes i ntact bilaterally and moves all extr emities Psychiatric: Orientation: alert and oriented x 3 Apperance: approp riately dressed, a ppropriately groom ed and appeared st ated age Eye Cont act: good eye cont act Speech: loida l rate/rhythm/volu me of speech Affe ct: + anxious affe ct and + tearful a ffect Mood: + dep ressed mood Thoug ht Process: linear /logical thought p rocess and + perse veration Thought Content: + hopeles sness and + loneli ness Cognition: r ecent memory gross ly intact, remote memory grossly int act, attention benji ssly intact and la nguage grossly int act Estimated Int elligence: consist ent with education level Insight: g ood insight Judgm ent: good judgemen t Results & Data Results & Data Vital Signs (Past 12 Hours) Vital Signs Temp Pulse Resp BP Pulse Ox O2 Del Method O2 Flow Rate 09/15/24 14:22 36.5 C 116 H 20 145/90 H 96 Room Air 09/15/24 12:11 95 H 22 98 Nasal Cannula 3 09/15/24 08:05 36.5 C 126 H 18 152/93 H 95 Nasal Cannula 4 09/15/24 07:45 Nasal Cannula 4 09/15/24 07:34 120 H 20 96 Nasal Cannula 3 PG Care Time/CCT Total # of Minutes Spent Total Time Spent with Patient: Total time spent is greater than 50% in coordination of care (as documented) at patient's floor/unit and/or counseling patient: Coding Level of Care Code 16531 SUB INP/OBS CARE 235MIN Diagnoses Acute diverticulitis K57.92 Stage 4 very severe COPD by GOLD classification J44.9 Chronic respiratory failure with hypoxia J96.11 Essential hypertension I10 Hypertension type: essential hypertension Severe malnutrition E43 Anxiety F41.9 Dyspnea and respiratory abnormalities R06.00; R06.89 Weakness generalized R53.1 Advanced care planning/counseling discussion Z71.89 Palliative care by specialist Z51.5 Pulmonary cachexia due to COPD R64; J44.9 Abdominal pain R10.9 (4) Hypertension Hypertension type: essential hypertension Qualified Code(s): I10 - Essential (primary) hypertension
[2024-09-15] MEDS: SIMETHICONE 80 MG CHEW PO PRN (20:29)
[2024-09-16] MEDS: CALCIUM CARBONATE 500 MG CHEWABLE TAB PO PRN (00:45)
[2024-09-16 05:51] LABS: Hematocrit (blood only) 31.9 % (37.0-47.0); Hemoglobin 10.6 g/dl (12.0-16.0); Mean Corpuscular Hemoglobin 29.5 pg (25.0-34.0); Mean Corpuscular Hgb Conc 33.2 g/dL (32.0-36.0); Mean Corpuscular Volume 88.9 fL (80.0-100.0); Mean Platelet Volume 10.1 fL (9.4-12.4); Platelet Count 307 K/uL (130-400); RDW Coefficient of Variation 12.4 % (11.5-14.5); RDW Standard Deviation 40.6 fL (36.4-46.3); Red Blood Count 3.59 M/uL (4.20-5.40)
[2024-09-16 06:05] LABS: BUN Creatinine Ratio 5.1 (10-20); C Reactive Protein 20.96 mg/dl (0-0.5); Calcium 8.9 mg/dl (8.6-10.3); Creatinine Clr Calc Pharmacy 61.7 ml/min; Potassium 3.3 mmol/L (3.5-5.1)
--- NOTE | 2024-09-16 15:04 | Hospitalist Progress Note ---
Date of Service September 16, 2024 Assessment & Plan (1) Acute diverticulitis: Plan: Continue patient on Zosyn and Zithromax white counts are trending down Switched IV antibiotics to oral Cipro and Flagyl (2) Stage 4 very severe COPD by GOLD classification: Plan: Follow palliative care (3) Chronic respiratory failure with hypoxia: Plan: stage 4 copd followed by palliative care (4) Hypertension: Plan: currently normotensive (5) Severe malnutrition: Plan: Pulmonary cachexia due to COPD: BMI 17.1 (6) Anxiety: Plan: manageable (7) Dyspnea and respiratory abnormalities: (8) Weakness generalized: (9) Advanced care planning/counseling discussion: Plan: : Madi reaffirms DNR/DNI. Would like treatment for diverticulitis and return home. home with some home health nursing vs hospice. she is open to home health nursing but not yet ready fo hospice (this si c/w prior discussions in clinic) (10) Palliative care by specialist: (11) Pulmonary cachexia due to COPD: (12) Abdominal pain: Plan Madi is a pleasant 63-year-old female with past medical history of nd-stage COPD, chronic respiratory failure with hypoxia, CAD s/p 2 IMELDA, dyslipidemia, hypertension, anxiety, severe malnutrition, and palliative care program. She presented from home with 1 week of progressive abdominal pain. She reports decreased appetite over this time without much oral intake. Ongoing mild nausea and constant aching abdominal pain. She has never had a colonoscopy, but reports she did Cologuard 2-3 years ago and believes there were no abnormalities noted. CT A/P on admission reveals extensive acute uncomplicated sigmoid diverticulitis (long segment wall thickening and inflammation measuring approximately 15 cm). Trace adjacent free fluid, no free air or abscess seen. No bowel obstruction. #Diverticulitis CRP levels are trending down hopefully will be able to discharge patient on oral antibiotics #End-stage COPD/chronic respiratory failure/hypoxia/pulmonary cachexia due to COPD Follows with palliative care and pulmonology (Dr. Pinzon) for such No acute exacerbation, patient denies worsening of SOB or chest pain Continue home regimen Uses Air Vent HS - to bring in patient's home machine to use inpatient #Hypertension/hyperlipidemia/CAD Continue aspirin 81 mg daily, atorvastatin 40 mg HS Most recent echo 01/2023 with EF 55-60%, severe hypokinesis to akinesis of the apex, no LVH, mild AR, mild MR #Severe malnutrition, chronic - Secondary to advanced COPD Continue mirtazapine 15 mg daily Dietitian consulted. Recommend adding Boost TIDM (patient prefers vanilla) when diet advancement permits #GERD Continue pantoprazole 40 mg twice daily #Anxiety Continue escitalopram 20 mg daily, lorazepam 0.25 mg QID PRN anxiety VTE PPx: Lovenox 40 mg SQ daily CODE STATUS: DNR/DNI Admission and Anticipated Discharge Date Admission Date: September 12, 2024 Subjective admitted for abdominal pain due to diverticulitis currently feeling a lot better than when she came in Patient tolerated liquid diet will advance her diet as tolerated she was hypokalemic electrolytes were replaced Patient feels like she has significant gas will prescribe some simethicone also asking to increase her diet and get some boost Patient has been responding well with solid foods and reports that her stool is becoming solid Physical Exam Physical Exam: Constitutional: + ill appearing, + cachectic, + fra il appearing, well groomed and coope rative Eyes: PERRL, conjunctiva e normal, anicteri c sclerae ENMT: external ear and n ose normal, oropha rynx normal Mouth : + dry oral mucou s membranes Neck: trachea midline, n o thyromegaly Respiratory: + labored breathi ng, + uses accesso ry muscles, + coug h (dry), + prolong ed expiratory phas e and symmetric ch est movement Ausc ultation: + dimini shed lung sounds ( markedly dim bases ); no crackles, no rales, no rhonchi and no wheezes Cardiovascular: Rate/Rhythm: + tac hycardic Gastrointestinal ( Abdomen): Inspection/Auscult ation: + abdomen d istended and + sca phoid Percussion/ Palpation: + abdom en tender, + guard ing and abdomen so ft Musculoskeletal: Head/Neck/Chest: n elaine supple Extrem ities: + limited R OM of extremities and + muscle atrop hy Gait: + antalg ic gait Skin: + turgor decrease d and + pallor Neurologic: plantar reflexes i ntact bilaterally and moves all extr emities Psychiatric: Orientation: alert and oriented x 3 Apperance: approp riately dressed, a ppropriately groom ed and appeared st ated age Eye Cont act: good eye cont act Speech: loida l rate/rhythm/volu me of speech Affe ct: + anxious affe ct and + tearful a ffect Mood: + dep ressed mood Thoug ht Process: linear /logical thought p rocess and + perse veration Thought Content: + hopeles sness and + loneli ness Cognition: r ecent memory gross ly intact, remote memory grossly int act, attention benji ssly intact and la nguage grossly int act Estimated Int elligence: consist ent with education level Insight: g ood insight Judgm ent: good judgemen t Results & Data Results & Data Vital Signs (Past 12 Hours) Vital Signs Temp Pulse Resp BP Pulse Ox O2 Del Method O2 Flow Rate 09/16/24 12:12 104 H 26 H 98 Nasal Cannula 4 09/16/24 11:46 36.7 C 120 H 18 140/86 95 Nasal Cannula 4 09/16/24 11:03 Nasal Cannula 4 09/16/24 07:20 36.6 C 100 H 19 129/75 97 Nasal Cannula 3 09/16/24 07:00 95 H 16 98 Nasal Cannula 3 PG Care Time/CCT Total # of Minutes Spent Total Time Spent with Patient: Total time spent is greater than 50% in coordination of care (as documented) at patient's floor/unit and/or counseling patient: Coding Level of Care Code 23458 SUB INP/OBS CARE 2/35MIN Diagnoses Acute diverticulitis K57.92 Stage 4 very severe COPD by GOLD classification J44.9 Chronic respiratory failure with hypoxia J96.11 Essential hypertension I10 Hypertension type: essential hypertension Severe malnutrition E43 Anxiety F41.9 Dyspnea and respiratory abnormalities R06.00; R06.89 Weakness generalized R53.1 Advanced care planning/counseling discussion Z71.89 Palliative care by specialist Z51.5 Pulmonary cachexia due to COPD R64; J44.9 Abdominal pain R10.9 (4) Hypertension Hypertension type: essential hypertension Qualified Code(s): I10 - Essential (primary) hypertension
[2024-09-16] MEDS: metroNIDAZOLE 500 MG TAB PO SCH (15:44)
[2024-09-16] MEDS: CIPROFLOXACIN 500 MG TAB PO SCH (20:42)
[2024-09-17 06:32] LABS: Hematocrit (blood only) 34.3 % (37.0-47.0); Hemoglobin 11.5 g/dl (12.0-16.0); Mean Corpuscular Hgb Conc 33.5 g/dL (32.0-36.0); Mean Corpuscular Volume 89.6 fL (80.0-100.0); Mean Platelet Volume 9.9 fL (9.4-12.4); Platelet Count 355 K/uL (130-400); RDW Coefficient of Variation 12.7 % (11.5-14.5); RDW Standard Deviation 41.4 fL (36.4-46.3); Red Blood Count 3.83 M/uL (4.20-5.40); White Blood Count 14.22 K/ul (4.8-10.8)
[2024-09-17 06:57] LABS: BUN Creatinine Ratio 5.4 (10-20); Calcium 9.2 mg/dl (8.6-10.3); Potassium 3.5 mmol/L (3.5-5.1)
[2024-09-17 07:13] VITALS: O2SAT 97
[2024-09-17 08:01] VITALS: BP 136/75; RESP 18; TEMP 98.1
--- NOTE | 2024-09-17 13:49 | Discharge Summary ---
Date of Service September 17, 2024 Admission HPI Per Admitting Provider Madi is a pleasant 63-year-old female with past medical history of nd-stage COPD, chronic respiratory failure with hypoxia, CAD s/p 2 IMELDA, dyslipidemia, hypertension, anxiety, severe malnutrition, and palliative care program. She presented from home with 1 week of progressive abdominal pain. She reports decreased appetite over this time without much oral intake. She has had some mild nausea but denies vomiting. She had a small episode of diarrhea this morning. She is resting in bed in no acute distress at the time of my evaluation. She reports 7/10 abdominal pain, which she describes as a constant aching pain with intermittent sharp/stabbing sensations. She reports the pain is improved from when she first presented to the ED when her pain was 10/10. She reports that she took all of her regular morning medications today; no recent change in her medications. She has never had a colonoscopy, but reports she did Cologuard 2-3 years ago and believes there were no abnormalities noted. She wears supplemental oxygen at baseline: 3 L at rest and 6 L with ambulation/activity. She utilizes an air vent HS, which she reports her will bring in from home. We discussed her code status, and she wishes to be DNR/DNI. Vitals on admission are significant for hypertension with BP 150s/90s; vitals otherwise stable. Labs on admission are significant for mild leukocytosis of 12.35 with neutrophil predominance, mild anemia with Hgb 11.7, low creatinine of 0.54 (likely secondary to malnutrition). Electrolytes, LFTs, lipase, troponin WNL. Imaging on admission reveals extensive acute uncomplicated sigmoid diverticulitis (long segment wall thickening and inflammation measuring approximately 15 cm). Trace adjacent free fluid, no free air or abscess seen. No bowel obstruction. Admission Exam (Per Admitting) Constitutional General: No acute distress, nondiaphoretic. Frail and cachectic appearing. Appears older than current age. Cardiac: Regular rate and rhythm without murmurs gallops or rubs. No peripheral edema. Pulm: Decreased air entry bilaterally, without wheezes, rales or rhonchi. Normal respiratory effort. 98% on 3 L NC. Abdominal: Soft, distended, diffuse tenderness to palpation most prominent in the lower quadrants. Bowel sounds present. Neuro: A&O x3. No focal neurological deficits. Discharge Data Consultations 09/12/24 13:03 ED Decision to Admit Stat 09/13/24 08:32 Consult Palliative Care Routine Hospital Course (1) Acute diverticulitis: Continue patient on Zosyn and Zithromax white counts are trending down Switched IV antibiotics to oral Cipro and Flagyl (2) Stage 4 very severe COPD by GOLD classification: Follow palliative care (3) Chronic respiratory failure with hypoxia: stage 4 copd followed by palliative care (4) Hypertension: currently normotensive (5) Severe malnutrition: Pulmonary cachexia due to COPD: BMI 17.1 (6) Anxiety: manageable (7) Dyspnea and respiratory abnormalities: (8) Weakness generalized: (9) Advanced care planning/counseling discussion: : Madi reaffirms DNR/DNI. Would like treatment for diverticulitis and return home. home with some home health nursing vs hospice. she is open to home health nursing but not yet ready fo hospice (this si c/w prior discussions in clinic) (10) Palliative care by specialist: (11) Pulmonary cachexia due to COPD: (12) Abdominal pain: Rahul Barraza is a pleasant 63-year-old female with past medical history of nd-stage COPD, chronic respiratory failure with hypoxia, CAD s/p 2 IMELDA, dyslipidemia, hypertension, anxiety, severe malnutrition, and palliative care program. She presented from home with 1 week of progressive abdominal pain. She reports decreased appetite over this time without much oral intake. Ongoing mild nausea and constant aching abdominal pain. She has never had a colonoscopy, but reports she did Cologuard 2-3 years ago and believes there were no abnormalities noted. CT A/P on admission reveals extensive acute uncomplicated sigmoid diverticulitis (long segment wall thickening and inflammation measuring approximately 15 cm). Trace adjacent free fluid, no free air or abscess seen. No bowel obstruction. #Diverticulitis CRP levels are trending discharging patient on oral Cipro and Flagyl #End-stage COPD/chronic respiratory failure/hypoxia/pulmonary cachexia due to COPD Follows with palliative care and pulmonology (Dr. Pinzon) for such No acute exacerbation, patient denies worsening of SOB or chest pain Continue home regimen Uses Air Vent HS - to bring in patient's home machine to use inpatient #Hypertension/hyperlipidemia/CAD Continue aspirin 81 mg daily, atorvastatin 40 mg HS Most recent echo 01/2023 with EF 55-60%, severe hypokinesis to akinesis of the apex, no LVH, mild AR, mild MR #Severe malnutrition, chronic - Secondary to advanced COPD Continue mirtazapine 15 mg daily Dietitian consulted. Recommend adding Boost TIDM (patient prefers vanilla) when diet advancement permits #GERD Continue pantoprazole 40 mg twice daily #Anxiety Continue escitalopram 20 mg daily, lorazepam 0.25 mg QID PRN anxiety V patient is being discharged home with oral antibiotics Coding Level of Care Code 75191 INP/OBS DISCH >30 MIN Diagnoses Acute diverticulitis K57.92 Stage 4 very severe COPD by GOLD classification J44.9 Chronic respiratory failure with hypoxia J96.11 Essential hypertension I10 Hypertension type: essential hypertension Severe malnutrition E43 Anxiety F41.9 Dyspnea and respiratory abnormalities R06.00; R06.89 Weakness generalized R53.1 Advanced care planning/counseling discussion Z71.89 Palliative care by specialist Z51.5 Pulmonary cachexia due to COPD R64; J44.9 Abdominal pain R10.9 Time Spent (min) 30
[2024-09-17 13:52] VITALS: PULSE 100
== END 2024-09-17 14:16 | disposition home health service (06) | DRG 391 ==
LOC: ED 10:36 → SUATTDRO 14:09 → 4W 14:09 → 3W 09-16 11:39

== ENCOUNTER 2024-09-18 21:19 | Inpatient (IN) ==
[2024-09-18] MEDS: SODIUM CHLORIDE 0.9% 500 ML IV ONE (22:06)
[2024-09-18] MEDS: SODIUM CHLORIDE 0.9% 1,000 ML IV ONE (22:06)
[2024-09-18] MEDS: HYDROmorphone INJ 0.5 MG/0.5 ML SYR IV PRN (22:07)
[2024-09-18] MEDS: ACETAMINOPHEN 500 MG TAB PO STA (22:07)
[2024-09-18 22:08] LABS: Basophils # (auto) 0.02 K/uL (0.00-0.20); Basophils % (auto) 0.1 %; Eosinophils # (auto) 0.05 K/uL (0.00-0.50); Eosinophils % (auto) 0.3 %; Hematocrit (blood only) 33.8 % (37.0-47.0); Hemoglobin 11.1 g/dl (12.0-16.0); Immature Granulocytes # (auto) 0.07 K/uL (0.01-0.20); Immature Granulocytes % (auto) 0.4 %; Lymphocytes # (auto) 1.62 K/uL (1.20-3.40); Lymphocytes % (auto) 8.9 %; Mean Corpuscular Hemoglobin 29.2 pg (25.0-34.0); Mean Corpuscular Hgb Conc 32.8 g/dL (32.0-36.0); Mean Corpuscular Volume 88.9 fL (80.0-100.0); Mean Platelet Volume 9.6 fL (9.4-12.4); Monocytes # (auto) 1.14 K/uL (0.11-0.59); Monocytes % (auto) 6.2 %; Neutrophils # (auto) 15.37 K/uL (1.40-6.50); Neutrophils % (auto) 84.1 %; Platelet Count 453 K/uL (130-400); RDW Standard Deviation 42.5 fL (36.4-46.3); White Blood Count 18.27 K/ul (4.8-10.8)
--- NOTE | 2024-09-18 22:15 | Emergency Department Note ---
ED Visit Note I was consulted by the Advanced Practice Provider Rachana Elliott PA-C. I performed a substantive portion of the visit including all aspects of medical decision making. .
[2024-09-18 22:27] LABS: Albumin Level 3.6 gm/dl (3.4-5.0); BUN Creatinine Ratio 11.8 (10-20); Bilirubin Direct 0.1 mg/dl (0-0.2); Bilirubin,Total 0.4 mg/dl (0.2-1.0); Calcium 9.1 mg/dl (8.6-10.3); Creatinine Clr Calc Pharmacy 50.8 ml/min; Magnesium 1.3 mg/dl (1.7-2.4); Potassium 2.9 mmol/L (3.5-5.1); Total Protein 6.7 gm/dl (6.0-8.3)
[2024-09-18 22:33] LABS: Troponin I High Sensitivity 14.7 pg/ml (0-14)
[2024-09-18] MEDS ORDERED: VANCOMYCIN CONSULT ACTIVE PRN (22:37)
--- NOTE | 2024-09-18 22:43 | Emergency Department Note ---
History of Present Illness General Chief complaint: Fall Stated complaint: FALL , BACK INJURY Time Seen by Provider: 09/18/24 21:42 History of Present Illness Maximum Pain Intensity: 10 This 63-year-old female who was just discharged for diverticulitis presents ER for ongoing low back pain after falling when she was hospitalized. Patient did not realize she had a fever. She also has severe COPD. She states her family doctor switched her to Bactrim and has a allergy to this and is requesting a different antibiotic. Patient denies chest pain, dyspnea, vomiting, urinary symptoms. She states her abdominal pain is improving and still has some discomfort in the lower abdomen. Home Medications Medication Instructions Recorded Confirmed Type aspirin 81 mg tablet,delayed 81 mg PO Q OTHER DAY 04/25/19 09/19/24 History release (Adult Low Dose Aspirin) cholecalciferol (vitamin D3) 25 25 mcg PO QAM 03/26/21 09/19/24 History mcg (1,000 unit) capsule ascorbic acid 1,000 1 ea PO DAILY PRN Cold Symptoms 04/03/22 09/19/24 History re-mxtkjvfgpavn-ngrourdm powder effervescent pack (Emergen-C) Medical Marijuana 1 dose PO DIRECTED PRN Anxiety 06/22/22 09/19/24 History guaifenesin 600 mg tablet, 600 mg PO BID PRN congestion #60 12/09/22 09/19/24 Rx extended release 12 hr (Mucinex) tabs Portable Oxygen #1 ea 07/29/23 05/22/24 Rx Portable Oxygen #1 ea 01/28/24 05/22/24 Rx azithromycin 250 mg tablet 250 mg PO 3XWK #36 tabs 01/28/24 09/19/24 Rx atorvastatin 40 mg tablet 40 mg PO HS #90 tabs 05/22/24 09/19/24 Rx escitalopram oxalate 20 mg tablet 20 mg PO HS #90 tabs 05/22/24 09/19/24 Rx pantoprazole 40 mg tablet,delayed 40 mg PO BID #180 tabs 05/22/24 09/19/24 Rx release roflumilast 500 mcg tablet 500 mcg PO DAILY #90 tabs 07/11/24 09/19/24 Rx (Daliresp) albuterol sulfate 90 mcg/actuation 2 inh inhalation QID PRN shortness 07/18/24 09/19/24 Rx aerosol inhaler of breath or wheezing 3 months #8.5 grams ipratropium 0.5 mg-albuterol 3 mg 3 ml inhalation Q6H end stage COPD 07/18/24 09/19/24 Rx (2.5 mg base)/3 mL nebulization 3 months #180 mL soln mirtazapine 15 mg disintegrating 15 mg PO HS anorexia 09/12/24 09/19/24 History tablet morphine 20 mg/5 mL (4 mg/mL) oral See Rx Instructions .Route 09/12/24 09/19/24 History solution .COMPLEX PRN Shortness Of Breath Lactobacillus acidophilus, 1 packet PO TIDM 30 days #30 ea 09/17/24 09/19/24 Rx bulgaricus 100 million cell granules packet (Floranex) ciprofloxacin 500 mg/5 mL oral 500 mg (5 mL) PO Q12H colitis 7 09/17/24 09/19/24 Rx suspension days #70 mL ciprofloxacin HCl 500 mg tablet 500 mg PO BID #14 tabs 09/17/24 09/19/24 Rx metronidazole 500 mg tablet 500 mg PO TID #21 tabs 09/17/24 09/19/24 Rx simethicone 80 mg chewable tablet 80 mg PO Q6H PRN abdominal 09/17/24 09/19/24 Rx (Gas Relief (simethicone)) distention 30 days #30 tabs Allergies Allergy/AdvReac Type Severity Reaction Status Date / Time bupropion [From Wellbutrin] Allergy Severe Unknown Verified 09/12/24 14:15 sulfamethoxazole Allergy Severe THROAT AND Verified 09/12/24 14:15 EARS SWELL trimethoprim Allergy Severe THROAT AND Verified 09/12/24 14:15 EARS SWELL codeine AdvReac Intermediate STOMACH Verified 09/12/24 14:15 CRAMPS, "KNOCKS ME OUT FOR DAYS" Past Med/Surg History Problem List Sepsis (Acute) Hypokalemia (Acute) Hypomagnesemia (Acute) Diverticulitis of intestine with abscess (Acute) Leukocytosis (Acute) Abdominal pain (Acute) Acute diverticulitis (Acute) Pulmonary cachexia due to COPD Encounter for hospice care discussion Advanced care planning/counseling discussion Palliative care by specialist Weakness generalized Dyspnea and respiratory abnormalities Stage 4 very severe COPD by GOLD classification Weakness (Acute) Cough (Acute) COVID-19 (Acute) Lung nodule Severe malnutrition Infiltrate noted on imaging study Multiple pulmonary nodules Vaccination hesitancy by patient Dyslipidemia Post-menopausal atrophic vaginitis Abnormal chest CT Aspiration into airway Dysphagia Anxiety Chronic respiratory failure with hypoxia Aortic regurgitation follows with Dr. Martinez COPD (chronic obstructive pulmonary disease) (Chronic) "24% lung function left" per pt > follows with Dr. Pinzon Coronary artery disease (Chronic) Heart disease Hypertension Bronchitis none at present Pneumonia none at present Emphysema of lung Acid reflux Stented coronary artery (Chronic) November 2011 > 2 stents Medical History Sleep apnea cpap On home oxygen therapy 3LPM Pneumonia due to COVID-19 virus May/Jun 2021 > hospitalized at [facility] Constipation Colitis resolved per pt Myocardial infarct November 2011 Surgical History History of nasal surgery History of nasal cauterization History of tonsillectomy History of hysterectomy partial History of appendectomy Family History Father Lung cancer Mother , age 68 Stroke Brother Enlarged liver Grandmother (Maternal) Colorectal cancer Other Diabetes Hypertension Denies family history of Ovarian cancer Prostate cancer Breast cancer Social History Smoking Status: Never smoker Tobacco Type: Cigarettes Age Started Using Tobacco: 8; Age Quit Using Tobacco: 52; packs per day: 1.5; Cigarettes Per Day: 20; Second Hand Exposure: No; Do You Dip or Chew Tobacco: No; Hx Alcohol Use: No Hx Substance Use: No Preferred Language: Namibian Communication Ability: Effective Visual Impairment: No Limitations Hearing Ability: Normal Planer Setter Required: No Beliefs That Will Affect Care: None marital status: Current Living Situation: Spouse Current Living Situation Comment: current occupational status: retired Feels Safe at Home: Yes Childhood Exposure to Second-Hand Smoke: Yes Dental Care, Regularly: No Physical Activity Frequency: Does not Exercise Seatbelt Use: always Sunscreen Use: No Assistive Devices: Oxygen - Continuous and Walker Review of Systems A total of 10 systems reviewed and were otherwise negative Physical Exam Vital Signs Vital Signs - 24 hr 09/18/24 21:31 09/18/24 21:48 09/18/24 22:06 Temperature 38.0 C H Temperature Source Temporal Artery Scan Pulse Rate 120 H 119 H 112 H Pulse Rate [Apical] Pulse Rate from SpO2 Sensor Pulse Rhythm Pulse Rhythm [Apical] Pulse Strength [Apical] Respiratory Rate 16 32 H Respiratory Effort / Characteristics Non-Labored Spontaneous Respiratory Depth Normal Respiratory Pattern Blood Pressure 129/72 135/103 H Blood Pressure [Right Arm] Blood Pressure Mean 91 115 Blood Pressure Mean [Right Arm] Blood Pressure Position Sitting Blood Pressure Position [Right Arm] Pulse Oximetry 97 98 Oxygen Delivery Method Oxygen Flow Rate 4 Sepsis Recent Fever Within 48 Hours No Sepsis New/Unexplained Change in Mental Status No Sepsis Action Taken by Nursing No Action Required 09/18/24 22:10 09/18/24 22:10 09/18/24 22:18 Temperature Temperature Source Pulse Rate 130 H 126 H Pulse Rate [Apical] 130 H Pulse Rate from SpO2 Sensor 125 H Pulse Rhythm Regular Pulse Rhythm [Apical] Regular Pulse Strength [Apical] Normal Respiratory Rate 28 H 28 H 28 H Respiratory Effort / Characteristics Non-Labored Spontaneous Respiratory Depth Normal Respiratory Pattern Regular Blood Pressure Blood Pressure [Right Arm] 135/103 H Blood Pressure Mean Blood Pressure Mean [Right Arm] 113 Blood Pressure Position Blood Pressure Position [Right Arm] Sitting Pulse Oximetry 98 98 100 Oxygen Delivery Method Nasal Cannula Nasal Cannula Oxygen Flow Rate 4 4 Sepsis Recent Fever Within 48 Hours Sepsis New/Unexplained Change in Mental Status Sepsis Action Taken by Nursing 09/18/24 22:21 09/18/24 22:25 09/18/24 22:25 Temperature Temperature Source Pulse Rate 126 H Pulse Rate [Apical] Pulse Rate from SpO2 Sensor 127 H Pulse Rhythm Pulse Rhythm [Apical] Pulse Strength [Apical] Respiratory Rate 27 H Respiratory Effort / Characteristics Respiratory Depth Respiratory Pattern Blood Pressure 138/83 138/83 Blood Pressure [Right Arm] Blood Pressure Mean 102 102 Blood Pressure Mean [Right Arm] Blood Pressure Position Blood Pressure Position [Right Arm] Pulse Oximetry 100 Oxygen Delivery Method Oxygen Flow Rate Sepsis Recent Fever Within 48 Hours Sepsis New/Unexplained Change in Mental Status Sepsis Action Taken by Nursing 09/18/24 22:25 09/18/24 22:27 09/18/24 22:30 Temperature Temperature Source Pulse Rate 104 H Pulse Rate [Apical] Pulse Rate from SpO2 Sensor 104 H Pulse Rhythm Pulse Rhythm [Apical] Pulse Strength [Apical] Respiratory Rate 25 H Respiratory Effort / Characteristics Respiratory Depth Respiratory Pattern Blood Pressure 138/83 147/77 H Blood Pressure [Right Arm] Blood Pressure Mean 102 102 Blood Pressure Mean [Right Arm] Blood Pressure Position Blood Pressure Position [Right Arm] Pulse Oximetry 98 Oxygen Delivery Method Oxygen Flow Rate Sepsis Recent Fever Within 48 Hours Sepsis New/Unexplained Change in Mental Status Sepsis Action Taken by Nursing 09/18/24 22:30 09/18/24 22:30 09/18/24 22:33 Temperature Temperature Source Pulse Rate 105 H Pulse Rate [Apical] Pulse Rate from SpO2 Sensor 104 H Pulse Rhythm Pulse Rhythm [Apical] Pulse Strength [Apical] Respiratory Rate 24 Respiratory Effort / Characteristics Respiratory Depth Respiratory Pattern Blood Pressure 147/77 H 147/77 H Blood Pressure [Right Arm] Blood Pressure Mean 102 102 Blood Pressure Mean [Right Arm] Blood Pressure Position Blood Pressure Position [Right Arm] Pulse Oximetry 98 Oxygen Delivery Method Oxygen Flow Rate Sepsis Recent Fever Within 48 Hours Sepsis New/Unexplained Change in Mental Status Sepsis Action Taken by Nursing 09/18/24 22:42 09/18/24 23:15 09/18/24 23:16 Temperature Temperature Source Pulse Rate 105 H 121 H Pulse Rate [Apical] Pulse Rate from SpO2 Sensor 105 H Pulse Rhythm Pulse Rhythm [Apical] Pulse Strength [Apical] Respiratory Rate 25 H 25 H Respiratory Effort / Characteristics Respiratory Depth Respiratory Pattern Blood Pressure 124/65 Blood Pressure [Right Arm] Blood Pressure Mean 95 Blood Pressure Mean [Right Arm] Blood Pressure Position Blood Pressure Position [Right Arm] Pulse Oximetry 99 Oxygen Delivery Method Nasal Cannula Oxygen Flow Rate 6 Sepsis Recent Fever Within 48 Hours Sepsis New/Unexplained Change in Mental Status Sepsis Action Taken by Nursing 09/18/24 23:24 09/18/24 23:30 09/19/24 00:00 Temperature Temperature Source Pulse Rate 97 H 98 H Pulse Rate [Apical] Pulse Rate from SpO2 Sensor Pulse Rhythm Pulse Rhythm [Apical] Pulse Strength [Apical] Respiratory Rate 23 20 Respiratory Effort / Characteristics Non-Labored Respiratory Depth Normal Respiratory Pattern Blood Pressure Blood Pressure [Right Arm] Blood Pressure Mean Blood Pressure Mean [Right Arm] Blood Pressure Position Blood Pressure Position [Right Arm] Pulse Oximetry Oxygen Delivery Method Oxygen Flow Rate Sepsis Recent Fever Within 48 Hours Sepsis New/Unexplained Change in Mental Status Sepsis Action Taken by Nursing 09/19/24 00:21 09/19/24 00:39 09/19/24 00:43 Temperature 37.2 C Temperature Source Oral Pulse Rate 97 H 100 H Pulse Rate [Apical] Pulse Rate from SpO2 Sensor 104 H 100 H Pulse Rhythm Pulse Rhythm [Apical] Pulse Strength [Apical] Respiratory Rate 24 21 Respiratory Effort / Characteristics Respiratory Depth Respiratory Pattern Blood Pressure Blood Pressure [Right Arm] Blood Pressure Mean Blood Pressure Mean [Right Arm] Blood Pressure Position Blood Pressure Position [Right Arm] Pulse Oximetry 97 99 Oxygen Delivery Method Oxygen Flow Rate Sepsis Recent Fever Within 48 Hours Sepsis New/Unexplained Change in Mental Status Sepsis Action Taken by Nursing 09/19/24 00:45 09/19/24 00:51 09/19/24 00:57 Temperature Temperature Source Pulse Rate 118 H 96 H 94 H Pulse Rate [Apical] Pulse Rate from SpO2 Sensor 118 H 96 H 91 H Pulse Rhythm Pulse Rhythm [Apical] Pulse Strength [Apical] Respiratory Rate 23 21 21 Respiratory Effort / Characteristics Respiratory Depth Respiratory Pattern Blood Pressure Blood Pressure [Right Arm] Blood Pressure Mean Blood Pressure Mean [Right Arm] Blood Pressure Position Blood Pressure Position [Right Arm] Pulse Oximetry 98 99 99 Oxygen Delivery Method Oxygen Flow Rate Sepsis Recent Fever Within 48 Hours Sepsis New/Unexplained Change in Mental Status Sepsis Action Taken by Nursing 09/19/24 01:00 09/19/24 01:00 09/19/24 01:00 Temperature Temperature Source Pulse Rate Pulse Rate [Apical] Pulse Rate from SpO2 Sensor Pulse Rhythm Pulse Rhythm [Apical] Pulse Strength [Apical] Respiratory Rate Respiratory Effort / Characteristics Non-Labored Respiratory Depth Normal Respiratory Pattern Blood Pressure 155/93 H 155/93 H Blood Pressure [Right Arm] Blood Pressure Mean 112 112 Blood Pressure Mean [Right Arm] Blood Pressure Position Blood Pressure Position [Right Arm] Pulse Oximetry Oxygen Delivery Method Oxygen Flow Rate Sepsis Recent Fever Within 48 Hours Sepsis New/Unexplained Change in Mental Status Sepsis Action Taken by Nursing 09/19/24 01:06 09/19/24 01:15 09/19/24 01:21 Temperature Temperature Source Pulse Rate 93 H 95 H 94 H Pulse Rate [Apical] Pulse Rate from SpO2 Sensor 93 H 95 H 94 H Pulse Rhythm Pulse Rhythm [Apical] Pulse Strength [Apical] Respiratory Rate 22 23 18 Respiratory Effort / Characteristics Respiratory Depth Respiratory Pattern Blood Pressure Blood Pressure [Right Arm] Blood Pressure Mean Blood Pressure Mean [Right Arm] Blood Pressure Position Blood Pressure Position [Right Arm] Pulse Oximetry 99 99 99 Oxygen Delivery Method Oxygen Flow Rate Sepsis Recent Fever Within 48 Hours Sepsis New/Unexplained Change in Mental Status Sepsis Action Taken by Nursing 09/19/24 01:40 Temperature Temperature Source Pulse Rate 93 H Pulse Rate [Apical] Pulse Rate from SpO2 Sensor Pulse Rhythm Pulse Rhythm [Apical] Pulse Strength [Apical] Respiratory Rate Respiratory Effort / Characteristics Respiratory Depth Respiratory Pattern Blood Pressure Blood Pressure [Right Arm] Blood Pressure Mean Blood Pressure Mean [Right Arm] Blood Pressure Position Blood Pressure Position [Right Arm] Pulse Oximetry Oxygen Delivery Method Oxygen Flow Rate Sepsis Recent Fever Within 48 Hours Sepsis New/Unexplained Change in Mental Status Sepsis Action Taken by Nursing VITALS: Vitals are noted on the nurse's note and reviewed by myself. Vital signs febrile. GENERAL: Pleasant female on oxygen, in no acute distress, nondiaphoretic, well- developed well-nourished. SKIN: The skin was without rashes, erythema, edema, or bruising. There is no tenting of the skin. Capillary reflex less than 2 seconds. HEAD: Normocephalic atraumatic. EARS: External auditory canals clear EYES: Pupils equal round and reactive to light and accommodation. Conjunctivae without injection, sclerae without icterus. Extraocular movements intact. NOSE: Patent, no discharge. MOUTH: Mucous membranes mildly dry. Pharynx without erythema or exudate. Uvula midline. Airway patent. Tongue does not deviate. NECK: Supple without nuchal rigidity. No lymphadenopathy. No thyromegaly. Cervical spine is nontender. No JVD. HEART: Regular rate and rhythm LUNGS: Clear to auscultation bilaterally without wheezes, rales or rhonchi. No retractions or accessory muscle use. ABDOMEN: Positive bowel sounds x 4. Normal tympanic percussion. Soft, mild lower abdominal tenderness, without masses or organomegaly. Blankenship sign negative. No guarding or rebound tenderness. No CVA tenderness MUSCULOSKELETAL: No muscle atrophy, erythema, or edema noted. No thoracic tenderness. Mid lumbar tenderness without step-offs. 5-5 strength throughout. NEURO: Patient was alert and oriented to person place and time. Normal sensation to light and sharp touch. No focal neurological deficits. Course Administered Medications Hydromorphone HCl (Hydromorphone Inj 0.5 Mg/0.5 Ml Syr) 0.5 mg IV Q15M PRN PRN Reason: Pain Stop: 10/02/24 21:54 Last Admin: 09/18/24 22:07 Dose: 0.5 mg Documented By: TARA Potassium Chloride (K Jose Raul / Wtr) 10 meq in 100 mls @ 100 mls/hr IV Q1H TRESA Stop: 09/19/24 02:44 Last Admin: 09/19/24 00:49 Dose: 100 mls/hr Documented By: Infusion: 09/19/24 00:49 Dose: Infused Documented By: Admin: 09/18/24 23:50 Dose: 100 mls/hr Documented By: TARA Discontinued Medications Acetaminophen (Acetaminophen 500 Mg Tab) 1,000 mg PO NOW STA Stop: 09/18/24 21:56 Last Admin: 09/18/24 22:07 Dose: 1,000 mg Documented By: TARA Sodium Chloride (Nss) 500 mls @ 999 mls/hr IV .Q31M ONE Stop: 09/18/24 22:25 Last Infusion: 09/18/24 23:26 Dose: Infused Documented By: Admin: 09/18/24 22:06 Dose: 999 mls/hr Documented By: TARA Sodium Chloride (Nss) 1,000 mls @ 999 mls/hr IV .Q1H1M ONE Stop: 09/18/24 22:55 Last Infusion: 09/18/24 23:26 Dose: Infused Documented By: Admin: 09/18/24 22:06 Dose: 999 mls/hr Documented By: TARA Piperacillin Sod/Tazobactam Sod (Zosyn) 4.5 gm in 100 mls @ 200 mls/hr IV NOW ONE; Protocol Stop: 09/18/24 23:05 Last Infusion: 09/18/24 23:26 Dose: Infused Documented By: Admin: 09/18/24 22:49 Dose: 200 mls/hr Documented By: TARA Vancomycin HCl 750 mg/ Sodium (Chloride) 515 mls @ 200 mls/hr IV NOW ONE Stop: 09/19/24 01:11 Last Infusion: 09/19/24 01:33 Dose: Infused Documented By: Admin: 09/18/24 23:35 Dose: 200 mls/hr Documented By: TARA Magnesium Sulfate/Dextrose (Magnesium Sulfate / D5w) 1 gm in 100 mls @ 100 mls/hr IV Q1H TRESA Stop: 09/19/24 00:38 Last Admin: 09/19/24 00:50 Dose: 100 mls/hr Documented By: Infusion: 09/19/24 00:49 Dose: Infused Documented By: Admin: 09/18/24 23:49 Dose: 100 mls/hr Documented By: TARA Ioversol (Optiray 320 125ml) 125 ml IV ONCE ONE Stop: 09/18/24 23:06 Last Admin: 09/18/24 23:05 Dose: 118 ml Documented By: SIOMARA Potassium Chloride (Potassium Chloride 20 Meq/15 Ml Udc) 40 meq PO NOW STA Stop: 09/18/24 22:40 Last Admin: 09/18/24 23:49 Dose: 40 meq Documented By: TARA Critical Care Time Critical Care Time: Yes Total Critical Care Time: 35 I have personally spent 35 minutes of critical care time in the direct management of this patient. This includes bedside care, interpretation of diagnostic studies, and testing, discussion with consultants, patient, and family members, and other required patient management activities. This 35 minutes is in excess of all separately billable procedures. Medical Decision Making Medical Records Attestation: I reviewed the patient's medical records. Home Medications Current Medication List: was personally reviewed by me Laboratory Data Attestation: I reviewed the patient's lab results. 09/18/24 21:48 09/18/24 21:48 Lab Results 09/18/24 09/18/24 09/18/24 Range/Units 21:48 22:22 22:23 WBC 18.27 H (4.8-10.8) K/ul RBC 3.80 L (4.20-5.40) M/uL Hgb 11.1 L (12.0-16.0) g/dl Hct 33.8 L (37.0-47.0) % MCV 88.9 (80.0-100.0) fL MCH 29.2 (25.0-34.0) pg MCHC 32.8 (32.0-36.0) g/dL RDW Std Deviation 42.5 (36.4-46.3) fL RDW Coeff of Luis 13.0 (11.5-14.5) % Plt Count 453 H (130-400) K/uL MPV 9.6 (9.4-12.4) fL Immature Gran % (Auto) 0.4 % Neut % (Auto) 84.1 % Lymph % (Auto) 8.9 % [place] % (Auto) 6.2 % Eos % (Auto) 0.3 % Baso % (Auto) 0.1 % Neut # (Auto) 15.37 H (1.40-6.50) K/uL Lymph # (Auto) 1.62 (1.20-3.40) K/uL [place] # (Auto) 1.14 H (0.11-0.59) K/uL Eos # (Auto) 0.05 (0.00-0.50) K/uL Baso # (Auto) 0.02 (0.00-0.20) K/uL Immature Gran # (Auto) 0.07 (0.01-0.20) K/uL Sodium 138 (136-145) mmol/L Potassium 2.9 L (3.5-5.1) mmol/L Chloride 95 L (98-107) mmol/L Carbon Dioxide 36 H (21-32) mmol/L Anion Gap 7 (3-11) BUN 8 (6-23) mg/dl Creatinine 0.68 (0.6-1.2) mg/dl Est Cr Clr Drug Dosing 50.8 ml/min eGFR 96.59 BUN/Creatinine Ratio 11.8 (10-20) Glucose 132 H (70-99(Fasting)) mg/dl Lactate 0.9 (0.4-2.0) mmol/L Calcium 9.1 (8.6-10.3) mg/dl Magnesium 1.3 L (1.7-2.4) mg/dl Total Bilirubin 0.4 (0.2-1.0) mg/dl Direct Bilirubin 0.1 (0-0.2) mg/dl AST 33 (13-39) U/L ALT 22 (7-52) U/L Alkaline Phosphatase 101 (34-104) U/L Troponin I High Sens 14.7 H (0-14) pg/ml Total Protein 6.7 (6.0-8.3) gm/dl Albumin 3.6 (3.4-5.0) gm/dl Procalcitonin 3.67 H (0-0.5) ng/ml Urine Color Urine Appearance (Clear) Urine pH (4.5-7.5) Ur Specific [place] (1.000-1.030) Urine Protein (Negative) Urine Glucose (UA) (Negative) Urine Ketones (Negative) Urine Blood (Negative) Urine Nitrite (Negative) Urine Bilirubin (Negative) Urine Urobilinogen (Negative) Ur Leukocyte Esterase (Negative) Urine WBC (Auto) (0-5) /hpf Urine RBC (Auto) (0-2) /hpf U Hyaline Cast (Auto) (0-2) /lpf U Epithel Cells (Auto) (0-2) /hpf Urine Bacteria (Auto) (None Seen) Adenovirus (PCR) Not Detected (NotDetected) B. pertussis DNA (PCR) Not Detected (NotDetected) B.parapertussis DNA PCR Not Detected (NotDetected) C. pneumoniae DNA (PCR) Not Detected (NotDetected) Coronavirus OC43 (PCR) Not Detected (NotDetected) Coronavirus HKU1 (PCR) Not Detected (NotDetected) Coronavirus 229E (PCR) Not Detected (NotDetected) SARS-CoV-2 (PCR) Not Detected (NotDetected) Coronavirus NL63 (PCR) Not Detected (NotDetected) Human Metapneumovir PCR Not Detected (NotDetected) Influenza Type A (PCR) Not Detected (NotDetected) Influenza Type B (PCR) Not Detected (NotDetected) M. pneumoniae (PCR) Not Detected (NotDetected) Parainfluenza 1 (PCR) Not Detected (NotDetected) Parainfluenza 2 (PCR) Not Detected (NotDetected) Parainfluenza 3 (PCR) Not Detected (NotDetected) Parainfluenza 4 (PCR) Not Detected (NotDetected) RSV (PCR) Not Detected (NotDetected) Entero/Rhino (PCR) Not Detected (NotDetected) 09/18/24 Range/Units 22:50 WBC (4.8-10.8) K/ul RBC (4.20-5.40) M/uL Hgb (12.0-16.0) g/dl Hct (37.0-47.0) % MCV (80.0-100.0) fL MCH (25.0-34.0) pg MCHC (32.0-36.0) g/dL RDW Std Deviation (36.4-46.3) fL RDW Coeff of Luis (11.5-14.5) % Plt Count (130-400) K/uL MPV (9.4-12.4) fL Immature Gran % (Auto) % Neut % (Auto) % Lymph % (Auto) % [place] % (Auto) % Eos % (Auto) % Baso % (Auto) % Neut # (Auto) (1.40-6.50) K/uL Lymph # (Auto) (1.20-3.40) K/uL [place] # (Auto) (0.11-0.59) K/uL Eos # (Auto) (0.00-0.50) K/uL Baso # (Auto) (0.00-0.20) K/uL Immature Gran # (Auto) (0.01-0.20) K/uL Sodium (136-145) mmol/L Potassium (3.5-5.1) mmol/L Chloride (98-107) mmol/L Carbon Dioxide (21-32) mmol/L Anion Gap (3-11) BUN (6-23) mg/dl Creatinine (0.6-1.2) mg/dl Est Cr Clr Drug Dosing ml/min eGFR BUN/Creatinine Ratio (10-20) Glucose (70-99(Fasting)) mg/dl Lactate (0.4-2.0) mmol/L Calcium (8.6-10.3) mg/dl Magnesium (1.7-2.4) mg/dl Total Bilirubin (0.2-1.0) mg/dl Direct Bilirubin (0-0.2) mg/dl AST (13-39) U/L ALT (7-52) U/L Alkaline Phosphatase (34-104) U/L Troponin I High Sens (0-14) pg/ml Total Protein (6.0-8.3) gm/dl Albumin (3.4-5.0) gm/dl Procalcitonin (0-0.5) ng/ml Urine Color Yellow Urine Appearance Clear (Clear) Urine pH 7.0 (4.5-7.5) Ur Specific [place] 1.004 (1.000-1.030) Urine Protein Negative (Negative) Urine Glucose (UA) Negative (Negative) Urine Ketones Negative (Negative) Urine Blood Trace H (Negative) Urine Nitrite Negative (Negative) Urine Bilirubin Negative (Negative) Urine Urobilinogen Negative (Negative) Ur Leukocyte Esterase Negative (Negative) Urine WBC (Auto) 0-5 (0-5) /hpf Urine RBC (Auto) 0-2 (0-2) /hpf U Hyaline Cast (Auto) 0-2 (0-2) /lpf U Epithel Cells (Auto) 0-2 (0-2) /hpf Urine Bacteria (Auto) None Seen (None Seen) Adenovirus (PCR) (NotDetected) B. pertussis DNA (PCR) (NotDetected) B.parapertussis DNA PCR (NotDetected) C. pneumoniae DNA (PCR) (NotDetected) Coronavirus OC43 (PCR) (NotDetected) Coronavirus HKU1 (PCR) (NotDetected) Coronavirus 229E (PCR) (NotDetected) SARS-CoV-2 (PCR) (NotDetected) Coronavirus NL63 (PCR) (NotDetected) Human Metapneumovir PCR (NotDetected) Influenza Type A (PCR) (NotDetected) Influenza Type B (PCR) (NotDetected) M. pneumoniae (PCR) (NotDetected) Parainfluenza 1 (PCR) (NotDetected) Parainfluenza 2 (PCR) (NotDetected) Parainfluenza 3 (PCR) (NotDetected) Parainfluenza 4 (PCR) (NotDetected) RSV (PCR) (NotDetected) Entero/Rhino (PCR) (NotDetected) Imaging Data Attestation: I personally reviewed and interpreted this imaging study as follows: Radiologist's Impression: Chest X-Ray 09/18/24 21:55 Exam(s): XR CXR 1 VIEW EXAM: XR Chest, 1 View CLINICAL HISTORY: Reason for exam: Sepsis. TECHNIQUE: Frontal view of the chest. COMPARISON: Chest x-ray 05/12/23. FINDINGS: Lungs: Hyperexpansion of the lungs and fairly stable pattern of scattered interstitial thickening, likely chronic. No mass, focal infiltrate, pleural effusion or consolidation. Pleural space: No pneumothorax. Heart: No cardiomegaly. Mediastinum: Unremarkable. Bones/Soft Tissues: No acute abnormality. IMPRESSION: 1. Stable emphysema and presumed chronic interstitial scarring. 2. No acute process in the chest. Electronically signed by: Megan Newton M.D. 09/19/24 00:20 AM Abdomen/Pelvis CT 09/18/24 21:56 CR Exam(s): CT ABDOMEN + PELVIS With Contrast IV Amt: 118 ML OPTIRAY 320 EXAM: CT Abdomen and Pelvis With Intravenous Contrast CLINICAL HISTORY: Reason for exam: fever, lower abd pain. TECHNIQUE: Axial computed tomography images of the abdomen and pelvis with intravenous contrast. CTDI is 6.45 mGy and DLP is 219.53 mGy-cm. Automated exposure control was utilized for the study. A dose lowering technique was utilized adhering to the principles of ALARA. Moderate breathing artifact. CONTRAST: Patient received 118 ML OPTIRAY 320 of IV contrast COMPARISON: CT abdomen pelvis 09/12/24. FINDINGS: Lung bases: Severe emphysema, stable. Liver: Fatty. Mild intrahepatic ductal dilatation. Gallbladder and bile ducts: Moderate distended gallbladder, with mild ductal dilation, CBD 1 cm. Pancreas: No ductal dilation, or acute pancreatitis. Spleen: Unremarkable. Adrenals: Unremarkable. Kidneys and ureters: Wall enhancement of a mild dilated right ureter, may be secondary to pyelitis and postobstructive uropathy. No perinephric abscess, pyelonephritis or hydronephrosis. Stomach and bowel: Moderate to severe, long segment wall thickening rectosigmoid colon with diverticulosis. Findings are nonspecific, probable acute diverticulitis, though cannot rule out a nonspecific colitis. Lobular fluid collections along the right lateral superior serosal margin, nonspecific, cannot rule out developing abscess or contained perforations. No obstruction. Appendix: No acute appendicitis. Intraperitoneal space: No free air or fluid. Bones/joints: No acute fracture. Soft tissues: Unremarkable. Vasculature: No aortic aneurysm. Lymph nodes: No enlarged lymph nodes. Bladder: No stones. Reproductive: Unremarkable as visualized. IMPRESSION: 1. Severe, long segment rectosigmoid colitis/acute diverticulitis. Suspect developing serosal margin abscesses. 2. No rmaesh perforation. 3. Probable obstructive uropathy and associated right pyelitis. 4. Distended gallbladder with mild intra-and extrahepatic ductal dilatation. 5. Severe emphysema, stable. Communications: Call Doctor Above results Electronically signed by: Megan Newton M.D. 09/19/24 00:37 AM Chest CTA 09/18/24 21:56 Exam(s): CTA CHEST IV Amt: 118 ML OPTIRAY 320 EXAM: CT Angiography Chest With Intravenous Contrast CLINICAL HISTORY: Reason for exam: PE. TECHNIQUE: Axial computed tomographic angiography images of the chest with intravenous contrast. CTDI is 6.44 mGy and DLP is 262.9 mGy-cm. Automated exposure control was utilized for the study. A dose lowering technique was utilized adhering to the principles of ALARA. 118 ML Optiray 320 given IV. MIP reconstructed images were created and reviewed. COMPARISON: CT chest 10/06/23. FINDINGS: Pulmonary arteries: No pulmonary embolism. Aorta: No dissection flap or aneurysm. Lungs: Severe emphysema is stable. Mild scattered interstitial thickening greater on the left, fairly stable, likely chronic. No consolidation. Pleural space: No significant effusion. No pneumothorax. Heart: No cardiomegaly. No significant pericardial effusion. No evidence of elevated right heart pressures. Bones/joints: No acute fracture. Soft tissues: Unremarkable. Lymph nodes: No enlarged lymph nodes. IMPRESSION: 1. No pulmonary embolism. 2. Severe emphysema. 3. No gross mass or focal infiltrate. Electronically signed by: Megan Newton M.D. 09/19/24 01:[address] 09/18/24 21:56 Exam(s): CT L SPINE With Contrast IV Amt: 118 ML OPTIRAY 320 EXAM: CT Lumbar Spine With Intravenous Contrast CLINICAL HISTORY: Reason for exam: fall ,pain. TECHNIQUE: Axial computed tomography images of the lumbar spine with intravenous contrast. CTDI is 6.45 mGy and DLP is 219.53 mGy-cm. Automated exposure control was utilized for the study. A dose lowering technique was utilized adhering to the principles of ALARA. CONTRAST: Patient received 118 ML OPTIRAY 320 of IV contrast COMPARISON: None. FINDINGS: Vertebrae: Grade 1 L2-3 retrolisthesis. No acute fracture. Discs/spinal canal/neural foramina: Moderate narrowing at L2-3 and L4- 5. Remaining disc heights are fairly well preserved. Soft tissues: Emphysema, intra-and extrahepatic ductal dilatation, right pyelitis and partially imaged sigmoid colitis. See separately dictated CT abdomen pelvis. IMPRESSION: 1. L2-3 retrolisthesis and degenerative disc disease. 2. No fracture or acute bony abnormality. 3. Acute abnormality in the abdomen/pelvis partially included, see separately dictated CT abdomen pelvis. Electronically signed by: Megan Newton M.D. 09/19/24 00:50 AM MDM Narrative Prior records/ancillary studies reviewed. Triage Nursing notes reviewed. Additional history obtained from family. The patient's history was concerning for fever. Differential diagnosis: Etiologies such as viral syndrome, otitis, pharyngitis, pneumonia, influenza, meningitis, urinary tract infection, sepsis, bacteremia, as well as others were entertained. Physical examination: As above ER treatment provided: An order was placed for continuous cardiac monitoring. The monitor shows a rate of 60-100 with a sinus rhythm per my interpretation. IV fluids per septic protocol, Zosyn, vancomycin, potassium and magnesium were ordered Tylenol was ordered for the fever Dilaudid was ordered for pain On reassessment the patient felt better. Diagnostics interpreted by me: ECG: Ordered for weakness EKG: Normal sinus, poor baseline, minimal ST depressions in the lateral leads, rate of 111. Impression sinus tachycardia with minimal ST depression in the lateral leads most with a rate dependent independently interpreted by myself The labs Independently Interpreted by myself revealed leukocytosis, hypokalemia, low magnesium, elevated procalcitonin. Negative lactic Imaging studies: Imaging was reviewed and read by radiology Consultation: A consultation was placed with hospitalist. The case was discussed and diagnostics were reviewed. The patient was evaluated in the ER for further treatment. Consultation was placed with surgery and the case was discussed. Patient was evaluated by the surgical team. This appears to be consistent with diverticulitis with developing abscess with electrolyte abnormalities and concerns for sepsis. Patient was immediately started on broad-spectrum antibiotics and fluid resuscitation per septic protocol. She was reassessed and improved. Vital signs were improved. Circulation was improved. Blood cultures are pending. Electrolytes were replaced. She is agreeable to treatment plan of admission. Medicine and surgery were consulted and did evaluate the patient. By the evaluation outlined above emergent etiologies such as otitis, pharyngitis, pneumonia, meningitis as well as others were deemed relatively unlikely. The pt informed about the findings as listed above. All questions were answered and pleased with the treatment. The chart was completed utilizing [employer] voice recognition software. Grammatical errors, random word insertions, pronoun errors, and incomplete sentences are an occassional consequence of this system due to software limitations, ambient noise, and hardware issues. Any formal questions or concerns about the content, text, or information contained within the body of this dictation should be directly addressed to the physician corporate law assistant for clarification. Impression & Plan Diverticulitis of intestine with abscess, Hypomagnesemia, Hypokalemia, Sepsis Discharge Plan Visit Data Chief Complaint: Fall Stated Complaint: FALL ON /, BACK INJURY ED Provider: Son Martinez ED Midlevel Provider: Delisa Elliott Discharge Problem: Diverticulitis of intestine with abscess, Hypomagnesemia, Hypokalemia, Sepsis Patient Disposition: Admitted As Inpatient Condition: Fair Forms Stand Alone Forms: [employer] Prescriptions Prescriptions: No Action aspirin [Adult Low Dose Aspirin] 81 mg tablet,delayed release (DR/EC) 81 mg PO Q OTHER DAY Rx Instructions: 81 mg PO every other day; roflumilast [Daliresp] 500 mcg tablet 500 mcg PO DAILY Qty: 90 3RF albuterol sulfate 90 mcg/actuation HFA aerosol inhaler 2 inh inhalation QID PRN (Reason: shortness of breath or wheezing) 90 Days Qty: 8.5 3RF ipratropium-albuterol 0.5 mg-3 mg(2.5 mg base)/3 mL solution for nebulization 3 ml INHALATION Q6H 90 Days Qty: 180 3RF Rx Instructions: J44.9 COPD cholecalciferol (vitamin D3) 25 mcg (1,000 unit) capsule 25 mcg PO QAM guaifenesin [Mucinex] 600 mg tablet extended release 12hr 600 mg PO BID PRN (Reason: congestion) Qty: 60 1RF Rx Instructions: Take 1 tab p.o. twice a day for 7 days and then as needed (DME) Portable Oxygen Misc See Rx Instructions .MEDSUPPLY Qty: 1 0RF Rx Instructions: Oxygen liters continuous via nasal cannula at rest and 6 L continuous via nasal cannula on exertion with portable concentrator. DUNIA 99 pantoprazole 40 mg tablet,delayed release (DR/EC) 40 mg PO BID Qty: 180 3RF escitalopram oxalate 20 mg tablet 20 mg PO HS Qty: 90 3RF atorvastatin 40 mg tablet 40 mg PO HS Qty: 90 3RF azithromycin 250 mg tablet 250 mg PO 3XWK Qty: 36 3RF Rx Instructions: 250 mg PO 1 tab p.o. Vgnyys-Xrnlkfcfe-Reijsz; (DME) Portable Oxygen Misc See Rx Instructions .MEDSUPPLY Qty: 1 0RF Rx Instructions: Oxygen 5 liters continuous via nasal cannula on exertion with portable concentrator. DUNIA 99 Emergen-C 1,000 mg Powder Effervescent In Packet 1 ea PO DAILY PRN (Reason: Cold Symptoms) Medical Marijuana 1 dose PO DIRECTED PRN (Reason: Anxiety) morphine 20 mg/5 mL (4 mg/mL) solution See Rx Instructions .ROUTE .COMPLEX PRN (Reason: Shortness Of Breath) Rx Instructions: TAKE 1.25ML BY MOUTH EVERY 6 HOURS NEEDED FOR SHORTNESS OF BREATH mirtazapine 15 mg tablet,disintegrating 15 mg PO HS metronidazole 500 mg Tablet 500 mg PO TID Qty: 21 0RF ciprofloxacin HCl 500 mg Tablet 500 mg PO BID Qty: 14 0RF simethicone [Gas Relief (simethicone)] 80 mg Tablet,Chewable 80 mg PO Q6H PRN (Reason: abdominal distention) 30 Days Qty: 30 0RF Lactobacillus acidoph-L.bulgar [Floranex] 100 million cell Granules In Packet 1 packet PO TIDM 30 Days Qty: 30 0RF ciprofloxacin 500 mg/5 mL suspension,microcapsule recon 500 mg PO Q12H 7 Days Qty: 70 0RF Referrals Referrals: Sunshine Judd MD [Primary Care Provider] - Discharge Problem: Diverticulitis of intestine with abscess Qualifiers: Diverticulitis site: unspecified part of intestinal tract Diverticulitis bleeding: unspecified bleeding status Qualified Code(s): K57.80 - Diverticulitis of intestine, part unspecified, with perforation and abscess without bleeding
[2024-09-18] MEDS: PIPERACILLIN/TAZOBACTAM 4.5 GM/100 ML BAG IV ONE (22:49)
[2024-09-18] MEDS: OPTIRAY 320 125ml IV ONE (23:05)
[2024-09-18 23:13] LABS: Appearance Urine Clear (Clear); Bacteria Urine Automated None Seen (None Seen); Bilirubin Urine Negative (Negative); Blood Urine Trace (Negative); Cast Urine Automated 0-2 /lpf (0-2); Color Urine Yellow; Epithelial Cell Urine Auto 0-2 /hpf (0-2); Glucose Urine UA Negative (Negative); Ketones Urine Negative (Negative); Leukocyte Esterase Urine Negative (Negative); Nitrite Urine Negative (Negative); Protein Urine Negative (Negative); RBC Urine Automated 0-2 /hpf (0-2); Specific Gravity Urine 1.004 (1.000-1.030); Urobilinogen Urine Negative (Negative); WBC Urine Automated 0-5 /hpf (0-5)
[2024-09-18 23:21] LABS: Adenovirus PCR Not Detected (NotDetected); Bordetella parapertussis PCR Not Detected (NotDetected); Bordetella pertussis PCR Not Detected (NotDetected); Chlamydia pneumoniae PCR Not Detected (NotDetected); Coronavirus 229E PCR Not Detected (NotDetected); Coronavirus CoV-2 (COVID19)PCR Not Detected (NotDetected); Coronavirus HKU1 PCR Not Detected (NotDetected); Coronavirus NL63 PCR Not Detected (NotDetected); Coronavirus OC43PCR Not Detected (NotDetected); Human Metapneumovirus PCR Not Detected (NotDetected); Influenza A PCR Not Detected (NotDetected); Influenza B PCR Not Detected (NotDetected); Mycoplasma pneumoniae PCR Not Detected (NotDetected); Parainfluenza Virus 1 PCR Not Detected (NotDetected); Parainfluenza Virus 2 PCR Not Detected (NotDetected); Parainfluenza Virus 3 PCR Not Detected (NotDetected); Parainfluenza Virus 4 PCR Not Detected (NotDetected); Respiratory Syncytial VirusPCR Not Detected (NotDetected); Rhinovirus/Enterovirus PCR Not Detected (NotDetected)
[2024-09-18] MEDS: VANCOMYCIN HCL 750 MG in SODIUM CHLORIDE 0.9% 500 ML IV ONE (23:35)
[2024-09-18] MEDS: MAGNESIUM SULFATE / D5W 1 GM/100 ML BAG IV SCH (23:49)
[2024-09-18] MEDS: POTASSIUM CHLORIDE 20 MEQ/15 ML UDC PO STA (23:49)
[2024-09-18] MEDS: POTASSIUM CHLORIDE / WTR 10 MEQ/100 ML PLCT IV SCH (23:50)
--- NOTE | 2024-09-19 00:21 | XRay Report ---
Exam(s): XR CXR 1 VIEW EXAM: XR Chest, 1 View CLINICAL HISTORY: Reason for exam: Sepsis. TECHNIQUE: Frontal view of the chest. COMPARISON: Chest x-ray 05/12/23. FINDINGS: Lungs: Hyperexpansion of the lungs and fairly stable pattern of scattered interstitial thickening, likely chronic. No mass, focal infiltrate, pleural effusion or consolidation. Pleural space: No pneumothorax. Heart: No cardiomegaly. Mediastinum: Unremarkable. Bones/Soft Tissues: No acute abnormality. IMPRESSION: 1. Stable emphysema and presumed chronic interstitial scarring. 2. No acute process in the chest. Electronically signed by: Megan Newton M.D. 09/19/24 00:20 AM
--- NOTE | 2024-09-19 00:38 | CT Scan Report ---
Exam(s): CT ABDOMEN + PELVIS With Contrast IV Amt: 118 ML OPTIRAY 320 EXAM: CT Abdomen and Pelvis With Intravenous Contrast CLINICAL HISTORY: Reason for exam: fever, lower abd pain. TECHNIQUE: Axial computed tomography images of the abdomen and pelvis with intravenous contrast. CTDI is 6.45 mGy and DLP is 219.53 mGy-cm. Automated exposure control was utilized for the study. A dose lowering technique was utilized adhering to the principles of ALARA. Moderate breathing artifact. CONTRAST: Patient received 118 ML OPTIRAY 320 of IV contrast COMPARISON: CT abdomen pelvis 09/12/24. FINDINGS: Lung bases: Severe emphysema, stable. Liver: Fatty. Mild intrahepatic ductal dilatation. Gallbladder and bile ducts: Moderate distended gallbladder, with mild ductal dilation, CBD 1 cm. Pancreas: No ductal dilation, or acute pancreatitis. Spleen: Unremarkable. Adrenals: Unremarkable. Kidneys and ureters: Wall enhancement of a mild dilated right ureter, may be secondary to pyelitis and postobstructive uropathy. No perinephric abscess, pyelonephritis or hydronephrosis. Stomach and bowel: Moderate to severe, long segment wall thickening rectosigmoid colon with diverticulosis. Findings are nonspecific, probable acute diverticulitis, though cannot rule out a nonspecific colitis. Lobular fluid collections along the right lateral superior serosal margin, nonspecific, cannot rule out developing abscess or contained perforations. No obstruction. Appendix: No acute appendicitis. Intraperitoneal space: No free air or fluid. Bones/joints: No acute fracture. Soft tissues: Unremarkable. Vasculature: No aortic aneurysm. Lymph nodes: No enlarged lymph nodes. Bladder: No stones. Reproductive: Unremarkable as visualized. IMPRESSION: 1. Severe, long segment rectosigmoid colitis/acute diverticulitis. Suspect developing serosal margin abscesses. 2. No ramesh perforation. 3. Probable obstructive uropathy and associated right pyelitis. 4. Distended gallbladder with mild intra-and extrahepatic ductal dilatation. 5. Severe emphysema, stable. Communications: Call Doctor Above results Electronically signed by: Megan Newton M.D. 09/19/24 00:37 AM
--- NOTE | 2024-09-19 00:51 | CT Scan Report ---
Exam(s): CT L SPINE With Contrast IV Amt: 118 ML OPTIRAY 320 EXAM: CT Lumbar Spine With Intravenous Contrast CLINICAL HISTORY: Reason for exam: fall ,pain. TECHNIQUE: Axial computed tomography images of the lumbar spine with intravenous contrast. CTDI is 6.45 mGy and DLP is 219.53 mGy-cm. Automated exposure control was utilized for the study. A dose lowering technique was utilized adhering to the principles of ALARA. CONTRAST: Patient received 118 ML OPTIRAY 320 of IV contrast COMPARISON: None. FINDINGS: Vertebrae: Grade 1 L2-3 retrolisthesis. No acute fracture. Discs/spinal canal/neural foramina: Moderate narrowing at L2-3 and L4- 5. Remaining disc heights are fairly well preserved. Soft tissues: Emphysema, intra-and extrahepatic ductal dilatation, right pyelitis and partially imaged sigmoid colitis. See separately dictated CT abdomen pelvis. IMPRESSION: 1. L2-3 retrolisthesis and degenerative disc disease. 2. No fracture or acute bony abnormality. 3. Acute abnormality in the abdomen/pelvis partially included, see separately dictated CT abdomen pelvis. Electronically signed by: Megan Newton M.D. 09/19/24 00:50 AM
--- NOTE | 2024-09-19 01:09 | CT Scan Report ---
Exam(s): CTA CHEST IV Amt: 118 ML OPTIRAY 320 EXAM: CT Angiography Chest With Intravenous Contrast CLINICAL HISTORY: Reason for exam: PE. TECHNIQUE: Axial computed tomographic angiography images of the chest with intravenous contrast. CTDI is 6.44 mGy and DLP is 262.9 mGy-cm. Automated exposure control was utilized for the study. A dose lowering technique was utilized adhering to the principles of ALARA. 118 ML Optiray 320 given IV. MIP reconstructed images were created and reviewed. COMPARISON: CT chest 10/06/23. FINDINGS: Pulmonary arteries: No pulmonary embolism. Aorta: No dissection flap or aneurysm. Lungs: Severe emphysema is stable. Mild scattered interstitial thickening greater on the left, fairly stable, likely chronic. No consolidation. Pleural space: No significant effusion. No pneumothorax. Heart: No cardiomegaly. No significant pericardial effusion. No evidence of elevated right heart pressures. Bones/joints: No acute fracture. Soft tissues: Unremarkable. Lymph nodes: No enlarged lymph nodes. IMPRESSION: 1. No pulmonary embolism. 2. Severe emphysema. 3. No gross mass or focal infiltrate. Electronically signed by: Megan Newton M.D. 09/19/24 01:08 AM
--- NOTE | 2024-09-19 01:32 | Surgery Consultation ---
Date of Consultation September 19, 2024 Assessment & Plan (1) Acute diverticulitis: I discussed with the treating clinician in the emergency department she is being admitted on the hospitalist service. From surgery perspective we recommend the following: Recommend keeping the patient n.p.o. IV fluids to be used for hydration supplementing electrolyte deficiencies This patient is noted to have persistent diverticulitis I feel she will require prolonged intravenous antibiotics and she has been initiated on Zosyn in the emergency department which should continue Serial labs to be followed If the patient does not show significant clinical improvement with resumption of intravenous antibiotics consideration be given to her reimaging the patient at a later date and if there is development of any intra-abdominal abscess appropriate action can be taken such as consulting interventional radiology to see if percutaneous drainage can be employed although there does not appear to be any drainable abscess at this time Patient is noted to have a distended gallbladder on CT scan but she does not have any pain in the right upper quadrant, nor does she have any elevation of LFTs suggestive of acute cholecystitis (I suspected due to the patient's severe COPD she would not be a candidate for cholecystectomy and if she would develop cholecystitis consideration be given to performing a minimally invasive procedure such as an Axios stent or percutaneous cholecystotomy with me however at the present time I do not feel this is needed) Additional recommendations were forthcoming based on her clinical course as it unfolds as above. already feeling better than yesterday. dion clears. no urgent indic ation for surgical intervention. will follow along this admission. History of Present Illness Reason for Consultation: Diverticulitis History of Present Illness This is a 63-year-old female who was recently mated to [facility] from 09/12/2024 through 09/17/2024. During this admission the patient was treated for sigmoid diverticulitis. During this hospitalization she was treated with antibiotics in the form of Zosyn and Zithromax which were ultimately sw itched to oral Cipro and Flagyl which she was discharged with. It is noteworthy to mention that during this admission the patient did have a CT scan of the abdomen pelvis on 09/12/2024 which showed that she had extensive uncomplicated sigmoid diverticulitis at that time. During this hospitalization her white blood cell count was 14.2 at time of discharge. Patient also adds that she did suffer a fall while she was in the hospital as she slipped and fell in the bathroom. She says that she has had ongoing back pain secondary to this fall. The patient presented to the emergency department the evening of 09/18/2024. Patient says that since discharge home from the hospital and due to her above- noted fall she has had ongoing lower back pain without radiation or modifying factors. Patient specifically notes that she does not have much in the way of abdominal pain and she has overall improved since discharge from the hospital.. She denies any nausea or vomiting. She denies any shakes or chills. She denies any dysuria. The patient does report having a intermittent fever at home. She has never had a colonoscopy. Because of her symptomatology she reported back to the hospital. She also added that she has since followed up with her primary care physician who switched her antibiotics to oral Bactrim which she continues to take. The patient further adds that she has an extensive smoking history but she no longer smokes. She does report that she has severe COPD which is oxygen dependentshe uses 4 L at rest and 6 L at activity levels. She does note that she has been told that she can no longer any go under surgical procedures requiring general anesthesia due to her severe COPD Since arrival to the hospital today the patient has had labs and imaging which I independent reviewed. A CBC revealed white blood cell count was 18.2. Hemoglobin and hematocrit were 11.1 and 33.8. Platelet count was normal. Chemistry profile showed sodium was 138 with a potassium of 2.9. BUN and creatinine were both normal. Her magnesium level was low at 1.3. Urinalysis was not indicative of infection. She did have a bio fire study sent which was negative for all viruses tested. The patient underwent a chest x-ray that showed stable emphysema without active pneumonia. A CT scan of the chest showed no evidence of pulmonary emboli or lung infiltrate. A lumbar spine CT scan andrew wed no acute fractures or bony abnormalities. She also underwent a CT scan of the abdomen pelvis that showed the patient had a long segment of colitis/diverticulitis of the rectosigmoid area. Interpreting radiologist could not exclude a developing serosal abscess. There is no free intraperitoneal fluid or free intraperitoneal air. At the time of my interview she was resting comfortably in bed and she was in no distress. Allergies Allergy/AdvReac Type Severity Reaction Status Date / Time bupropion [From Wellbutrin] Allergy Severe Unknown Verified 09/12/24 14:15 sulfamethoxazole Allergy Severe THROAT AND Verified 09/12/24 14:15 EARS SWELL trimethoprim Allergy Severe THROAT AND Verified 09/12/24 14:15 EARS SWELL codeine AdvReac Intermediate STOMACH Verified 09/12/24 14:15 CRAMPS, "KNOCKS ME OUT FOR DAYS" Home Medications Medication Instructions Recorded Confirmed Type aspirin 81 mg tablet,delayed 81 mg PO Q OTHER DAY 04/25/19 09/19/24 History release (Adult Low Dose Aspirin) cholecalciferol (vitamin D3) 25 25 mcg PO QAM 03/26/21 09/19/24 History mcg (1,000 unit) capsule ascorbic acid 1,000 1 ea PO DAILY PRN Cold Symptoms 04/03/22 09/19/24 History [id number]-kopfaxmdnybq-yhcfjxuo powder effervescent pack (Emergen-C) Medical Marijuana 1 dose PO DIRECTED PRN Anxiety 06/22/22 09/19/24 History guaifenesin 600 mg tablet, 600 mg PO BID PRN congestion #60 12/09/22 09/19/24 Rx extended release 12 hr (Mucinex) tabs Portable Oxygen #1 ea 07/29/23 05/22/24 Rx Portable Oxygen #1 ea 01/28/24 05/22/24 Rx azithromycin 250 mg tablet 250 mg PO 3XWK #36 tabs 01/28/24 09/19/24 Rx atorvastatin 40 mg tablet 40 mg PO HS #90 tabs 05/22/24 09/19/24 Rx escitalopram oxalate 20 mg tablet 20 mg PO HS #90 tabs 05/22/24 09/19/24 Rx pantoprazole 40 mg tablet,delayed 40 mg PO BID #180 tabs 05/22/24 09/19/24 Rx release roflumilast 500 mcg tablet 500 mcg PO DAILY #90 tabs 07/11/24 09/19/24 Rx (Daliresp) albuterol sulfate 90 mcg/actuation 2 inh inhalation QID PRN shortness 07/18/24 09/19/24 Rx aerosol inhaler of breath or wheezing 3 months #8.5 grams ipratropium 0.5 mg-albuterol 3 mg 3 ml inhalation Q6H end stage COPD 07/18/24 09/19/24 Rx (2.5 mg base)/3 mL nebulization 3 months #180 mL soln mirtazapine 15 mg disintegrating 15 mg PO HS anorexia 09/12/24 09/19/24 History tablet morphine 20 mg/5 mL (4 mg/mL) oral See Rx Instructions .Route 09/12/24 09/19/24 History solution .COMPLEX PRN Shortness Of Breath Lactobacillus acidophilus, 1 packet PO TIDM 30 days #30 ea 09/17/24 09/19/24 Rx bulgaricus 100 million cell granules packet (Floranex) ciprofloxacin 500 mg/5 mL oral 500 mg (5 mL) PO Q12H colitis 7 09/17/24 09/19/24 Rx suspension days #70 mL ciprofloxacin HCl 500 mg tablet 500 mg PO BID #14 tabs 09/17/24 09/19/24 Rx metronidazole 500 mg tablet 500 mg PO TID #21 tabs 09/17/24 09/19/24 Rx simethicone 80 mg chewable tablet 80 mg PO Q6H PRN abdominal 09/17/24 09/19/24 Rx (Gas Relief (simethicone)) distention 30 days #30 tabs Patient History Medical History Sleep apnea cpap On home oxygen therapy 3LPM Pneumonia due to COVID-19 virus May/Jun 2021 > hospitalized at [facility] Constipation Colitis resolved per pt Myocardial infarct November 2011 Surgical History History of nasal surgery History of nasal cauterization History of tonsillectomy History of hysterectomy partial History of appendectomy Family History Father Lung cancer Mother , age 68 Stroke Brother Enlarged liver Grandmother (Maternal) Colorectal cancer Other Diabetes Hypertension Denies family history of Ovarian cancer Prostate cancer Breast cancer Social History Smoking Status: Never smoker Tobacco Type: Cigarettes Age Started Using Tobacco: 8; Age Quit Using Tobacco: 52; packs per day: 1.5; Cigarettes Per Day: 20; Second Hand Exposure: No; Do You Dip or Chew Tobacco: No; Hx Alcohol Use: No Hx Substance Use: No Preferred Language: Spanish Communication Ability: Effective Visual Impairment: No Limitations Hearing Ability: Normal 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: 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 Beliefs That Will Affect Care: None marital status: Current Living Situation: Spouse Current Living Situation Comment: current occupational status: retired Feels Safe at Home: Yes Childhood Exposure to Second-Hand Smoke: Yes Dental Care, Regularly: No Physical Activity Frequency: Does not Exercise Seatbelt Use: always Sunscreen Use: No Assistive Devices: Oxygen - Continuous and Walker Review of Systems Review of Systems: All systems reviewed & are unremarkable except as noted in HPI & below Physical Exam Constitutional: + thin; no acute distress Eyes: no conjunctival abnormality ENMT: Ears: no hearing impairment and no external ear abnormality Mouth: no oropharynx abnormality Neck: trachea midline Respiratory: normal respiratory effort; no respiratory distress and no labored breathing Cardiovascular: Rate/Rhythm: regular rate and regular rhythm Gastrointestinal (Abdomen): Abdomen is soft without distention or rigidity. There is no rebound tenderness, guarding, or signs of peritonitis. There is minimal pain with palpation in the lower abdomen. There is no pain with palpation in the right upper quadrant Musculoskeletal: No calf tenderness Skin: no rashes Neurologic: moves all extremities Psychiatric: A+Ox3, euthymic affect Results & Data Vital Signs (Past 12 Hours) Vital Signs Temp Pulse Pulse Resp BP BP Pulse Ox 09/19/24 01:21 94 H 18 99 09/19/24 01:15 95 H 23 99 09/19/24 01:06 93 H 22 99 09/19/24 01:00 155/93 H 09/19/24 01:00 155/93 H 09/19/24 00:57 94 H 21 99 09/19/24 00:51 96 H 21 99 09/19/24 00:45 118 H 23 98 09/19/24 00:43 37.2 C 09/19/24 00:39 100 H 21 99 09/19/24 00:21 97 H 24 97 09/18/24 23:30 98 H 20 09/18/24 23:24 97 H 23 09/18/24 23:16 124/65 09/18/24 23:15 121 H 25 H 09/18/24 22:42 105 H 25 H 99 09/18/24 22:33 105 H 24 98 09/18/24 22:30 147/77 H 09/18/24 22:30 147/77 H 09/18/24 22:30 147/77 H 09/18/24 22:27 104 H 25 H 98 09/18/24 22:25 138/83 09/18/24 22:25 138/83 09/18/24 22:25 138/83 09/18/24 22:21 126 H 27 H 100 09/18/24 22:18 126 H 28 H 100 09/18/24 22:10 130 H 28 H 98 09/18/24 22:10 130 H 28 H 135/103 H 98 09/18/24 22:06 112 H 32 H 135/103 H 98 09/18/24 21:48 119 H 09/18/24 21:31 38.0 C H 120 H 16 129/72 97 O2 Del Method O2 Flow Rate 09/19/24 01:21 09/19/24 01:15 09/19/24 01:06 09/19/24 01:00 09/19/24 01:00 09/19/24 00:57 09/19/24 00:51 09/19/24 00:45 09/19/24 00:43 09/19/24 00:39 09/19/24 00:21 09/18/24 23:30 09/18/24 23:24 09/18/24 23:16 09/18/24 23:15 Nasal Cannula 6 09/18/24 22:42 09/18/24 22:33 09/18/24 22:30 09/18/24 22:30 09/18/24 22:30 09/18/24 22:27 09/18/24 22:25 09/18/24 22:25 09/18/24 22:25 09/18/24 22:21 09/18/24 22:18 09/18/24 22:10 Nasal Cannula 4 09/18/24 22:10 Nasal Cannula 4 09/18/24 22:06 09/18/24 21:48 09/18/24 21:31 4 PG Care Time/CCT Total # of Minutes Spent Total Time Spent with Patient: Total time spent is greater than 50% in coordination of care (as documented) at patient's floor/unit and/or counseling patient: Coding Level of Care Code 26258 INT INP/OBS CARE MIN Diagnoses Acute diverticulitis K57.92
--- NOTE | 2024-09-19 01:54 | History & Physical Report ---
Date of Service September 19, 2024 Assessment & Plan (1) Diverticulitis: (2) Hypokalemia: (3) Hypomagnesemia: (4) Elevated troponin: (5) Stage 4 very severe COPD by GOLD classification: Plan 63-year-old female PMHx end-stage COPD,, respiratory failure with hypoxia, CAD s/p 2 IMELDA, dyslipidemia, HTN, anxiety, severe malnutrition, and involved with the palliative care program presenting after recent hospital admission from 09/12/2024 until 09/17/2024 for diverticulitis who presents today for lower back pain. ED evaluation reveals leukocytosis 18.27, H&H 11.1/33.8, platelets 453; CMP potassium 2.9, chloride 95, CO2 36, glucose 132, magnesium 1.3; troponin 14.7; procalcitonin 3.67; UA negative for infection; BioFire negative; CXR stable emphysema presumed chronic interstitial scarring, no acute findings; CTAP severe long segment retrosigmoid colitis/acute diverticulitis with suspected developing serosal margin abscess, no perforation, probable obstructive uropathy and associated right pyelitis, distended gallbladder with mild intra and extrahepatic ductal dilatation, severe emphysema; chest CTA without evidence of PE or gross mass/focal infiltrate, does reveal severe emphysema; lumbar spine CT L2-3 retrolisthesis and DDD, no fracture or bony abnormality; EKG sinus tach with nonspecific ST-T wave abnormality at 111 bpm.; Patient was provided with 1.5 mL NSS, Dilaudid 0.5 mg IV, Tylenol 1 g p.o., Zosyn 4.5 g IV, vancomycin IV, KCl 40 mEq p.o. and 30 mEq IV, and mag sulfate 2 g IV in ED. #Diverticulitis Recent hospitalization 09/12/2024 until 09/17/2024 for diverticulitis, treated with Zosyn and Zithromax initially and then switched to oral Cipro and Flagyl. Was then to take Bactrim, but patient is allergic to sulfamethoxazole so she did not take it. Onset of lower back pain starting the day [employer] which prompted her to come to the hospital since it was similar to her prior episode. No blood in stool. No fever or chills per her report, but was feverish upon arrival to hospital. - CBC leukocytosis 18.27, H&H 11.1/33.6; CMP BUN 8; procalcitonin 3.67; lactate 0.9 - CBC, BMP am - CTAP severe long segment retrosigmoid colitis/acute diverticulitis with suspected developing serosal margin abscess without perforation - NPO - LR @ 100 mL/hr - Acetaminophen + Dilaudid for pain as ordered - Zofran prn N/V - Zosyn IV - Gen sx consulted - appreciate input + recs #Hypokalemia Asymptomatic currently, with concurrent hypomagnesemia. Received total of 70 mEq KCl in ED. - K 2.9; Mg 1.3 -- BMP am - EKG sinus tachycardia with nonspecific ST/T wave abnormalities - Patient received KCl 40 mEq p.o. and 30 mEq IV -- pending repeat labs and replete electrolytes as appropriate - Pt placed on med/tele for K abnormalities #Hypomagnesemia With concurrent hypokalemia. Received mag sulfate 2 g IV in ED. - Mg 1.3 - repeat am - MgSO4 2g IV to make total of 4 g IV #Elevated troponin Pt w/ h/o CAD/HTN/HLD; no current chest pain - Troponin 14.7, pending repeat - EKG sinus tachycardia at 111 bpm, without ischemic changes - Likely 2/2 demand #COPD/chronic respiratory failure with hypoxia H/o COPD, end-stage. Does follow with pulmonology with most recent visit being 01/28/2024 and follows with palliative care with most recent visit being 08/10/2024. Does not appear to be in acute exacerbation at this time. - O2 at home 4 L at rest 6 L with activity - continue - No evidence of exacerbation today - Continue home meds -- azithromycin 3x/wk (M/W/F), Daliresp, morphine isaiah, ipratrop-alb, alb-sulf #Distended gallbladder on CT Patient without RUQ pain at baseline or with palpation. - CBC does reveal leukocytosis, though likely to be secondary to diverticulitis as compared to an acute cholecystitis given current clinical picture; CMP with WNL LFTs - LFTs am - Gen sx consulted -in agreement with GEN surge that this does not appear to be an acute cholecystitis #HTN/HLD/CAD- ASA, atorvastatin - continue #Severe malnutrition- Mirtazapine - continue #GERD- Pantoprazole - continue #Anxiety- Escitalopram, lorazepam 4 times daily as needed (anxiety) - continue HOLD po meds while NPO Dispo: Admit, med/tele VTE prophylaxis: SCDs This document was dictated utilizing [email or web address]. Please excuse any grammatical errors that may be secondary to use of this software. Admission and Anticipated Discharge Date Admission Date: 09/19/2024 History of Present Illness Chief Complaint: Back pain Primary Care Provider: Sunshine Judd MD 63-year-old female PMHx end-stage COPD,, respiratory failure with hypoxia, CAD s/p 2 IMELDA, dyslipidemia, HTN, anxiety, severe malnutrition, and involved with the palliative care program presenting after recent hospital admission from 09/12/2024 until 09/17/2024 for diverticulitis who presents today for lower back pain. The day [employer], the patient started to have return of significant lower back pain which she initially attributed to a fall that occurred earlier in the month, but given that it was severe and constant she decided to be evaluated. States that she did not have a fall just prior to this hospitalization, but did have a fall at the beginning of September whenever she was first hospitalized. States that overall her back pain is in the same location and is in her central back, without much radiation other than mildly to the sides. Patient does have very minimal lower abdominal pain. Has not felt feverish, but reports that a fever was present upon her arrival to the hospital. Not having nausea or vomiting at present. Did have 1 episode of diarrhea the day [employer], but states that she drink a tea that normally causes her to have looser bowel movements. Patient has dysuria, unable to tell me when it initiated. Otherwise patient without complaints. No chest pain, shortness of breath, palpitations, numbness/tingling, weakness, syncope, URI symptoms, or fever/chills. Patient states that this felt similar to her prior episode of diverticulitis which required hospitalization and this is why she came in. ED evaluation reveals leukocytosis 18.27, H&H 11.1/33.8, platelets 453; CMP potassium 2.9, chloride 95, CO2 36, glucose 132, magnesium 1.3; troponin 14.7; procalcitonin 3.67; UA negative for infection; BioFire negative; CXR stable emphysema presumed chronic interstitial scarring, no acute findings; CTAP severe long segment retrosigmoid colitis/acute diverticulitis with suspected developing serosal margin abscess, no perforation, probable obstructive uropathy and associated right pyelitis, distended gallbladder with mild intra and extrahepatic ductal dilatation, severe emphysema; chest CTA without evidence of PE or gross mass/focal infiltrate, does reveal severe emphysema; lumbar spine CT L2-3 retrolisthesis and DDD, no fracture or bony abnormality; EKG sinus tach with nonspecific ST-T wave abnormality at 111 bpm.; Patient was provided with 1.5 mL NSS, Dilaudid 0.5 mg IV, Tylenol 1 g p.o., Zosyn 4.5 g IV, vancomycin IV, KCl 40 mEq p.o. and 30 mEq IV, and mag sulfate 2 g IV in ED. Please see Dr. Vernon's attestation for adjustments/additions to treatment plan. Allergies Allergy/AdvReac Type Severity Reaction Status Date / Time bupropion [From Wellbutrin] Allergy Severe Unknown Verified 09/12/24 14:15 sulfamethoxazole Allergy Severe THROAT AND Verified 09/12/24 14:15 EARS SWELL trimethoprim Allergy Severe THROAT AND Verified 09/12/24 14:15 EARS SWELL codeine AdvReac Intermediate STOMACH Verified 09/12/24 14:15 CRAMPS, "KNOCKS ME OUT FOR DAYS" Home Medications Medication Instructions Recorded Confirmed Type aspirin 81 mg tablet,delayed 81 mg PO Q OTHER DAY 04/25/19 09/19/24 History release (Adult Low Dose Aspirin) cholecalciferol (vitamin D3) 25 25 mcg PO QAM 03/26/21 09/19/24 History mcg (1,000 unit) capsule ascorbic acid 1,000 1 ea PO DAILY PRN Cold Symptoms 04/03/22 09/19/24 History yc-[id number]-bozbagpz powder effervescent pack (Emergen-C) Medical Marijuana 1 dose PO DIRECTED PRN Anxiety 06/22/22 09/19/24 History guaifenesin 600 mg tablet, 600 mg PO BID PRN congestion #60 12/09/22 09/19/24 Rx extended release 12 hr (Mucinex) tabs Portable Oxygen #1 ea 07/29/23 05/22/24 Rx Portable Oxygen #1 ea 01/28/24 05/22/24 Rx azithromycin 250 mg tablet 250 mg PO 3XWK #36 tabs 01/28/24 09/19/24 Rx atorvastatin 40 mg tablet 40 mg PO HS #90 tabs 05/22/24 09/19/24 Rx escitalopram oxalate 20 mg tablet 20 mg PO HS #90 tabs 05/22/24 09/19/24 Rx pantoprazole 40 mg tablet,delayed 40 mg PO BID #180 tabs 05/22/24 09/19/24 Rx release roflumilast 500 mcg tablet 500 mcg PO DAILY #90 tabs 07/11/24 09/19/24 Rx (Daliresp) albuterol sulfate 90 mcg/actuation 2 inh inhalation QID PRN shortness 07/18/24 09/19/24 Rx aerosol inhaler of breath or wheezing 3 months #8.5 grams ipratropium 0.5 mg-albuterol 3 mg 3 ml inhalation Q6H end stage COPD 07/18/24 09/19/24 Rx (2.5 mg base)/3 mL nebulization 3 months #180 mL soln mirtazapine 15 mg disintegrating 15 mg PO HS anorexia 09/12/24 09/19/24 History tablet morphine 20 mg/5 mL (4 mg/mL) oral See Rx Instructions .Route 09/12/24 09/19/24 History solution .COMPLEX PRN Shortness Of Breath Lactobacillus acidophilus, 1 packet PO TIDM 30 days #30 ea 09/17/24 09/19/24 Rx bulgaricus 100 million cell granules packet (Floranex) ciprofloxacin 500 mg/5 mL oral 500 mg (5 mL) PO Q12H colitis 7 09/17/24 09/19/24 Rx suspension days #70 mL ciprofloxacin HCl 500 mg tablet 500 mg PO BID #14 tabs 09/17/24 09/19/24 Rx metronidazole 500 mg tablet 500 mg PO TID #21 tabs 09/17/24 09/19/24 Rx simethicone 80 mg chewable tablet 80 mg PO Q6H PRN abdominal 09/17/24 09/19/24 Rx (Gas Relief (simethicone)) distention 30 days #30 tabs Past Med/Surg History Problem List Elevated troponin Diverticulitis Sepsis (Acute) Hypokalemia (Acute) Hypomagnesemia (Acute) Diverticulitis of intestine with abscess (Acute) Leukocytosis (Acute) Abdominal pain (Acute) Acute diverticulitis (Acute) Pulmonary cachexia due to COPD Encounter for hospice care discussion Advanced care planning/counseling discussion Palliative care by specialist Weakness generalized Dyspnea and respiratory abnormalities Stage 4 very severe COPD by GOLD classification Weakness (Acute) Cough (Acute) COVID-19 (Acute) Lung nodule Severe malnutrition Infiltrate noted on imaging study Multiple pulmonary nodules Vaccination hesitancy by patient Dyslipidemia Post-menopausal atrophic vaginitis Abnormal chest CT Aspiration into airway Dysphagia Anxiety Chronic respiratory failure with hypoxia Aortic regurgitation follows with Dr. Martinez COPD (chronic obstructive pulmonary disease) (Chronic) "24% lung function left" per pt > follows with Dr. Pinzon Coronary artery disease (Chronic) Heart disease Hypertension Bronchitis none at present Pneumonia none at present Emphysema of lung Acid reflux Stented coronary artery (Chronic) November 2011 > 2 stents Medical History Sleep apnea cpap On home oxygen therapy 3LPM Pneumonia due to COVID-19 virus May/Jun 2021 > hospitalized at [facility] Constipation Colitis resolved per pt Myocardial infarct November 2011 Surgical History History of nasal surgery History of nasal cauterization History of tonsillectomy History of hysterectomy partial History of appendectomy Family History Father Lung cancer Mother , age 68 Stroke Brother Enlarged liver Grandmother (Maternal) Colorectal cancer Other Diabetes Hypertension Denies family history of Ovarian cancer Prostate cancer Breast cancer Social History Smoking Status: Never smoker Tobacco Type: Cigarettes Age Started Using Tobacco: 8; Age Quit Using Tobacco: 52; packs per day: 1.5; Cigarettes Per Day: 20; Second Hand Exposure: No; Do You Dip or Chew Tobacco: No; Hx Alcohol Use: No Hx Substance Use: No Preferred Language: Sami Communication Ability: Effective Visual Impairment: No Limitations Hearing Ability: Normal 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 Beliefs That Will Affect Care: None marital status: Current Living Situation: Spouse Current Living Situation Comment: current occupational status: retired Feels Safe at Home: Yes Childhood Exposure to Second-Hand Smoke: Yes Dental Care, Regularly: No Physical Activity Frequency: Does not Exercise Seatbelt Use: always Sunscreen Use: No Assistive Devices: Oxygen - Continuous and Walker Review of Systems Review of Systems: All systems reviewed & are unremarkable except as noted in Subjective Physical Exam Physical Exam: General: No acute distress, thin Skin: Warm and dry Head: Normocephalic, atraumatic Eyes: PERRL, conjunctivae clear, sclera non-icteric ENT: External ear and ear canal without swelling; nose atraumatic; OK dentition, tongue normal appearance, pharynx normal slightly dry Neck: Supple, no LAD Cardio: RRR, no M/G/R, S1 and S2 normal Resp: No respiratory distress, Lungs CTA in all lobes bilaterally, no wheezes, rales, or rhonchi; wearing O2 via NC Abdomen: Soft, symmetric, nontender; No masses or hepatosplenomegaly; Bowel sounds normoactive; negative marina MSK: No deformities; pulses palpable and equal; no edema; slight deformity lower back, patient states this has been present and not a new concern, no pain at area. No step off deformities. Neuro: Awake, alert; Sensation intact bilaterally; CN grossly intact Psych: Appropriate mood and affect; good judgement and insight. Results & Data Results & Data Vital Signs (Past 12 Hours) Vital Signs Temp Pulse Pulse Resp BP BP Pulse Ox 09/19/24 01:40 93 H 09/19/24 01:21 94 H 18 99 09/19/24 01:15 95 H 23 99 09/19/24 01:06 93 H 22 99 09/19/24 01:00 155/93 H 09/19/24 01:00 155/93 H 09/19/24 00:57 94 H 21 99 09/19/24 00:51 96 H 21 99 09/19/24 00:45 118 H 23 98 09/19/24 00:43 37.2 C 09/19/24 00:39 100 H 21 99 09/19/24 00:21 97 H 24 97 09/18/24 23:30 98 H 20 09/18/24 23:24 97 H 23 09/18/24 23:16 124/65 09/18/24 23:15 121 H 25 H 09/18/24 22:42 105 H 25 H 99 09/18/24 22:33 105 H 24 98 09/18/24 22:30 147/77 H 09/18/24 22:30 147/77 H 09/18/24 22:30 147/77 H 09/18/24 22:27 104 H 25 H 98 09/18/24 22:25 138/83 09/18/24 22:25 138/83 09/18/24 22:25 138/83 09/18/24 22:21 126 H 27 H 100 09/18/24 22:18 126 H 28 H 100 09/18/24 22:10 130 H 28 H 98 09/18/24 22:10 130 H 28 H 135/103 H 98 09/18/24 22:06 112 H 32 H 135/103 H 98 09/18/24 21:48 119 H 09/18/24 21:31 38.0 C H 120 H 16 129/72 97 O2 Del Method O2 Flow Rate 09/19/24 01:40 09/19/24 01:21 09/19/24 01:15 09/19/24 01:06 09/19/24 01:00 09/19/24 01:00 09/19/24 00:57 09/19/24 00:51 09/19/24 00:45 09/19/24 00:43 09/19/24 00:39 09/19/24 00:21 09/18/24 23:30 09/18/24 23:24 09/18/24 23:16 09/18/24 23:15 Nasal Cannula 6 09/18/24 22:42 09/18/24 22:33 09/18/24 22:30 09/18/24 22:30 09/18/24 22:30 09/18/24 22:27 09/18/24 22:25 09/18/24 22:25 09/18/24 22:25 09/18/24 22:21 09/18/24 22:18 09/18/24 22:10 Nasal Cannula 4 09/18/24 22:10 Nasal Cannula 4 09/18/24 22:06 09/18/24 21:48 09/18/24 21:31 4 Laboratory Results 09/18/24 22:27 Aerobic Blood Culture - Pending Blood Anaerobic Blood Culture - Pending 09/18/24 22:23 Aerobic Blood Culture - Pending Blood Anaerobic Blood Culture - Pending 09/18/24 09/18/24 09/18/24 22:50 22:23 22:22 WBC RBC Hgb Hct MCV MCH MCHC RDW Std Deviation RDW Coeff of Luis Plt Count MPV Immature Gran % (Auto) Neut % (Auto) Lymph % (Auto) [place] % (Auto) Eos % (Auto) Baso % (Auto) Neut # (Auto) Lymph # (Auto) [place] # (Auto) Eos # (Auto) Baso # (Auto) Immature Gran # (Auto) Sodium Potassium Chloride Carbon Dioxide Anion Gap BUN Creatinine Est Cr Clr Drug Dosing eGFR BUN/Creatinine Ratio Glucose Lactate 0.9 Calcium Magnesium Total Bilirubin Direct Bilirubin AST ALT Alkaline Phosphatase Troponin I High Sens Total Protein Albumin Procalcitonin Urine Color Yellow Urine Appearance Clear Urine pH 7.0 Ur Specific Hugo 1.004 Urine Protein Negative Urine Glucose (UA) Negative Urine Ketones Negative Urine Blood Trace H Urine Nitrite Negative Urine Bilirubin Negative Urine Urobilinogen Negative Ur Leukocyte Esterase Negative Urine WBC (Auto) 0-5 Urine RBC (Auto) 0-2 U Hyaline Cast (Auto) 0-2 U Epithel Cells (Auto) 0-2 Urine Bacteria (Auto) None Seen Adenovirus (PCR) Not Detected B. pertussis DNA (PCR) Not Detected B.parapertussis DNA PCR Not Detected C. pneumoniae DNA (PCR) Not Detected Coronavirus OC43 (PCR) Not Detected Coronavirus HKU1 (PCR) Not Detected Coronavirus 229E (PCR) Not Detected SARS-CoV-2 (PCR) Not Detected Coronavirus NL63 (PCR) Not Detected Human Metapneumovir PCR Not Detected Influenza Type A (PCR) Not Detected Influenza Type B (PCR) Not Detected M. pneumoniae (PCR) Not Detected Parainfluenza 1 (PCR) Not Detected Parainfluenza 2 (PCR) Not Detected Parainfluenza 3 (PCR) Not Detected Parainfluenza 4 (PCR) Not Detected RSV (PCR) Not Detected Entero/Rhino (PCR) Not Detected 09/18/24 21:48 WBC 18.27 H RBC 3.80 L Hgb 11.1 L Hct 33.8 L MCV 88.9 MCH 29.2 MCHC 32.8 RDW Std Deviation 42.5 RDW Coeff of Luis 13.0 Plt Count 453 H MPV 9.6 Immature Gran % (Auto) 0.4 Neut % (Auto) 84.1 Lymph % (Auto) 8.9 Med[place] % (Auto) 6.2 Eos % (Auto) 0.3 Baso % (Auto) 0.1 Neut # (Auto) 15.37 H Lymph # (Auto) 1.62 [place] # (Auto) 1.14 H Eos # (Auto) 0.05 Baso # (Auto) 0.02 Immature Gran # (Auto) 0.07 Sodium 138 Potassium 2.9 L Chloride 95 L Carbon Dioxide 36 H Anion Gap 7 BUN 8 Creatinine 0.68 Est Cr Clr Drug Dosing 50.8 eGFR 96.59 BUN/Creatinine Ratio 11.8 Glucose 132 H Lactate Calcium 9.1 Magnesium 1.3 L Total Bilirubin 0.4 Direct Bilirubin 0.1 AST 33 ALT 22 Alkaline Phosphatase 101 Troponin I High Sens 14.7 H Total Protein 6.7 Albumin 3.6 Procalcitonin 3.67 H Urine Color Urine Appearance Urine pH Ur Specific Hugo Urine Protein Urine Glucose (UA) Urine Ketones Urine Blood Urine Nitrite Urine Bilirubin Urine Urobilinogen Ur Leukocyte Esterase Urine WBC (Auto) Urine RBC (Auto) U Hyaline Cast (Auto) U Epithel Cells (Auto) Urine Bacteria (Auto) Adenovirus (PCR) B. pertussis DNA (PCR) B.parapertussis DNA PCR C. pneumoniae DNA (PCR) Coronavirus OC43 (PCR) Coronavirus HKU1 (PCR) Coronavirus 229E (PCR) SARS-CoV-2 (PCR) Coronavirus NL63 (PCR) Human Metapneumovir PCR Influenza Type A (PCR) Influenza Type B (PCR) M. pneumoniae (PCR) Parainfluenza 1 (PCR) Parainfluenza 2 (PCR) Parainfluenza 3 (PCR) Parainfluenza 4 (PCR) RSV (PCR) Entero/Rhino (PCR) Diagnostic Findings Chest X-Ray 09/18/24 21:55 Exam(s): XR CXR 1 VIEW EXAM: XR Chest, 1 View CLINICAL HISTORY: Reason for exam: Sepsis. TECHNIQUE: Frontal view of the chest. COMPARISON: Chest x-ray 05/12/23. FINDINGS: Lungs: Hyperexpansion of the lungs and fairly stable pattern of scattered interstitial thickening, likely chronic. No mass, focal infiltrate, pleural effusion or consolidation. Pleural space: No pneumothorax. Heart: No cardiomegaly. Mediastinum: Unremarkable. Bones/Soft Tissues: No acute abnormality. IMPRESSION: 1. Stable emphysema and presumed chronic interstitial scarring. 2. No acute process in the chest. Electronically signed by: Megan Newton M.D. 09/19/24 00:20 AM Abdomen/Pelvis CT 09/18/24 21:56 CR Exam(s): CT ABDOMEN + PELVIS With Contrast IV Amt: 118 ML OPTIRAY 320 EXAM: CT Abdomen and Pelvis With Intravenous Contrast CLINICAL HISTORY: Reason for exam: fever, lower abd pain. TECHNIQUE: Axial computed tomography images of the abdomen and pelvis with intravenous contrast. CTDI is 6.45 mGy and DLP is 219.53 mGy-cm. Automated exposure control was utilized for the study. A dose lowering technique was utilized adhering to the principles of ALARA. Moderate breathing artifact. CONTRAST: Patient received 118 ML OPTIRAY 320 of IV contrast COMPARISON: CT abdomen pelvis 09/12/24. FINDINGS: Lung bases: Severe emphysema, stable. Liver: Fatty. Mild intrahepatic ductal dilatation. Gallbladder and bile ducts: Moderate distended gallbladder, with mild ductal dilation, CBD 1 cm. Pancreas: No ductal dilation, or acute pancreatitis. Spleen: Unremarkable. Adrenals: Unremarkable. Kidneys and ureters: Wall enhancement of a mild dilated right ureter, may be secondary to pyelitis and postobstructive uropathy. No perinephric abscess, pyelonephritis or hydronephrosis. Stomach and bowel: Moderate to severe, long segment wall thickening rectosigmoid colon with diverticulosis. Findings are nonspecific, probable acute diverticulitis, though cannot rule out a nonspecific colitis. Lobular fluid collections along the right lateral superior serosal margin, nonspecific, cannot rule out developing abscess or contained perforations. No obstruction. Appendix: No acute appendicitis. Intraperitoneal space: No free air or fluid. Bones/joints: No acute fracture. Soft tissues: Unremarkable. Vasculature: No aortic aneurysm. Lymph nodes: No enlarged lymph nodes. Bladder: No stones. Reproductive: Unremarkable as visualized. IMPRESSION: 1. Severe, long segment rectosigmoid colitis/acute diverticulitis. Suspect developing serosal margin abscesses. 2. No ramesh perforation. 3. Probable obstructive uropathy and associated right pyelitis. 4. Distended gallbladder with mild intra-and extrahepatic ductal dilatation. 5. Severe emphysema, stable. Communications: Call Doctor Above results Electronically signed by: Megan Newton M.D. 09/19/24 00:37 AM Chest CTA 09/18/24 21:56 Exam(s): CTA CHEST IV Amt: 118 ML OPTIRAY 320 EXAM: CT Angiography Chest With Intravenous Contrast CLINICAL HISTORY: Reason for exam: PE. TECHNIQUE: Axial computed tomographic angiography images of the chest with intravenous contrast. CTDI is 6.44 mGy and DLP is 262.9 mGy-cm. Automated exposure control was utilized for the study. A dose lowering technique was utilized adhering to the principles of ALARA. 118 ML Optiray 320 given IV. MIP reconstructed images were created and reviewed. COMPARISON: CT chest 10/06/23. FINDINGS: Pulmonary arteries: No pulmonary embolism. Aorta: No dissection flap or aneurysm. Lungs: Severe emphysema is stable. Mild scattered interstitial thickening greater on the left, fairly stable, likely chronic. No consolidation. Pleural space: No significant effusion. No pneumothorax. Heart: No cardiomegaly. No significant pericardial effusion. No evidence of elevated right heart pressures. Bones/joints: No acute fracture. Soft tissues: Unremarkable. Lymph nodes: No enlarged lymph nodes. IMPRESSION: 1. No pulmonary embolism. 2. Severe emphysema. 3. No gross mass or focal infiltrate. Electronically signed by: Megan Newton M.D. 09/19/24 01:[address] 09/18/24 21:56 Exam(s): CT L SPINE With Contrast IV Amt: 118 ML OPTIRAY 320 EXAM: CT Lumbar Spine With Intravenous Contrast CLINICAL HISTORY: Reason for exam: fall ,pain. TECHNIQUE: Axial computed tomography images of the lumbar spine with intravenous contrast. CTDI is 6.45 mGy and DLP is 219.53 mGy-cm. Automated exposure control was utilized for the study. A dose lowering technique was utilized adhering to the principles of ALARA. CONTRAST: Patient received 118 ML OPTIRAY 320 of IV contrast COMPARISON: None. FINDINGS: Vertebrae: Grade 1 L2-3 retrolisthesis. No acute fracture. Discs/spinal canal/neural foramina: Moderate narrowing at L2-3 and L4- 5. Remaining disc heights are fairly well preserved. Soft tissues: Emphysema, intra-and extrahepatic ductal dilatation, right pyelitis and partially imaged sigmoid colitis. See separately dictated CT abdomen pelvis. IMPRESSION: 1. L2-3 retrolisthesis and degenerative disc disease. 2. No fracture or acute bony abnormality. 3. Acute abnormality in the abdomen/pelvis partially included, see separately dictated CT abdomen pelvis. Electronically signed by: Megan Newton M.D. 09/19/24 00:50 AM Medications Administered 1.5 L NSS Dilaudid 0.5 mg IV Tylenol 1 g p.o. Zosyn 4.5 g IV Vancomycin IV KCl 40 mEq p.o., 30 mEq IV Mag sulfate 2 g IV ECG Additional Comments: Sinus tachycardia, nonspecific ST-T wave abnormality 111 bpm, NJ 134, QRS 74, QT/QTc 362/492, PRT 92/77/42 Code Status & VTE Plan Code Status DNR/DNI Discussed in detail what "DNR/DNI" entails; patient understood fully. All questions asked and answered. Patient wishes to proceed with DNR/DNI status. Supervising Physician Co-Signing Physician Notes patient seen examined, chart reviewed, case discussed with NATY Elliott I agree with assessment and plan as document above. In brief, patient is a 63-year-old female presenting with recurrent diverticulitis. Abdomen tender but nonsurgical Assessment/plan Will continue IV Zosyn IV hydration with LR at 100 mL/h Zofran as needed for nausea Tylenol as needed for pain Will keep patient n.p.o. General Surgery consultation appreciated Magnesium repletion Continue home management for patient's COPD. No acute distress at present Remainder as above PG Care Time/CCT Total # of Minutes Spent Total Time Spent with Patient: Total time spent is greater than 50% in coordination of care (as documented) at patient's floor/unit and/or counseling patient: Coding Level of Care Code 04550 INT INP/OBS CARE 375MIN Diagnoses Diverticulitis K57.92 Hypokalemia E87.6 Hypomagnesemia E83.42 Elevated troponin R79.89 Stage 4 very severe COPD by GOLD classification J44.9
[2024-09-19] MEDS ORDERED: HYDROmorphone INJ 0.5 MG/0.5 ML SYR IV PRN (02:26)
[2024-09-19] MEDS: MAGNESIUM SULFATE / D5W 1 GM/100 ML BAG IV SCH (03:02)
[2024-09-19] MEDS ORDERED: MAGNESIUM HYDROXIDE SUSP 30 ML UDC PO PRN (04:10)
[2024-09-19] MEDS ORDERED: POLYETHYLENE (MIRALAX) 17 GM PACK PO PRN (04:10)
[2024-09-19] MEDS ORDERED: ALBUTEROL HFA 8 GM INHALER INH PRN (04:10)
[2024-09-19] MEDS ORDERED: ONDANSETRON INJ 2 MG/ML 2 ML VIAL IV PRN (04:10)
[2024-09-19] MEDS ORDERED: NALOXONE HCL 0.4 MG/1 ML VIAL/CARP IV PRN (04:10)
[2024-09-19] MEDS: HYDROmorphone INJ 0.5 MG/0.5 ML SYR IV PRN (04:24)
[2024-09-19] MEDS ORDERED: MoRPHine SULFATE 10 MG/0.5 ML UDP PO PRN (04:40)
[2024-09-19 05:13] LABS: Magnesium 2.6 mg/dl (1.7-2.4)
[2024-09-19] MEDS: LACTATED RINGER'S 1,000 ML IV SCH (06:02)
[2024-09-19 07:40] LABS: BUN Creatinine Ratio 10.9 (10-20); Calcium 7.9 mg/dl (8.6-10.3); Creatinine Clr Calc Pharmacy 62.8 ml/min; Potassium 4.2 mmol/L (3.5-5.1)
[2024-09-19] MEDS: ALBUT/IPRATROP 3MG/0.5MG NEB 3 ML VIAL INH SCH (08:29)
[2024-09-19] MEDS: PIPERACILLIN/TAZOBACTAM 4.5 GM/100 ML BAG IV SCH ×2 (08:29→08:31)
[2024-09-19 08:31] LABS: Basophils # (auto) 0.03 K/uL (0.00-0.20); Basophils % (auto) 0.2 %; Eosinophils # (auto) 0.26 K/uL (0.00-0.50); Eosinophils % (auto) 1.5 %; Hematocrit (blood only) 30.5 % (37.0-47.0); Hemoglobin 9.9 g/dl (12.0-16.0); Immature Granulocytes # (auto) 0.08 K/uL (0.01-0.20); Immature Granulocytes % (auto) 0.5 %; Lymphocytes # (auto) 1.61 K/uL (1.20-3.40); Lymphocytes % (auto) 9.3 %; Mean Corpuscular Hemoglobin 29.6 pg (25.0-34.0); Mean Corpuscular Hgb Conc 32.5 g/dL (32.0-36.0); Mean Platelet Volume 9.4 fL (9.4-12.4); Monocytes # (auto) 1.19 K/uL (0.11-0.59); Monocytes % (auto) 6.9 %; Neutrophils # (auto) 14.13 K/uL (1.40-6.50); Neutrophils % (auto) 81.6 %; Platelet Count 371 K/uL (130-400); RDW Coefficient of Variation 13.2 % (11.5-14.5); RDW Standard Deviation 43.8 fL (36.4-46.3); Red Blood Count 3.35 M/uL (4.20-5.40)
[2024-09-19] MEDS: ASPIRIN 81 MG ECTAB PO SCH (08:31)
[2024-09-19] MEDS: PANTOprazole 40 MG TAB PO SCH (08:31)
[2024-09-19 08:43] LABS: Calcium 8.1 mg/dl (8.6-10.3); Potassium 3.9 mmol/L (3.5-5.1)
[2024-09-19 08:48] LABS: BUN Creatinine Ratio 11.4 (10-20); Creatinine Clr Calc Pharmacy 78.5 ml/min
--- NOTE | 2024-09-19 10:37 | Electrocardiogram Report ---
Test Reason : Blood Pressure : */* mmHG Vent. Rate : 111 BPM Atrial Rate : 111 BPM P-R Int : 134 ms QRS Dur : 74 ms QT Int : 362 ms P-R-T Axes : 92 77 42 degrees QTcB Int : 492 ms Sinus tachycardia Nonspecific ST and T wave abnormality Abnormal ECG When compared with ECG of 12-Sep-2024 11:05, No significant change was found Confirmed by Rigoberto Chowdhury ([id number]) on 09/19/2024 10:37:19 AM Referred By: REFERRED SELF Confirmed By: Rigoberto Chowdhury
[2024-09-19] MEDS: ROFLUMILAST 500 MCG TAB PO SCH (11:10)
--- NOTE | 2024-09-19 12:09 | Hospitalist Progress Note ---
Date of Service September 19, 2024 Assessment & Plan (1) Diverticulitis: Plan: Recurrent sigmoid diverticulitis. Appreciate general surgery consultation and recommendations. Continue intravenous Zosyn for now, day 1. Allow clear liquids. IV fluids tapered down to 70 mL/h. Serial labs. Supportive care (2) Hypokalemia: Plan: Corrected with replacement therapy. Present on admission. Serial labs (3) Hypomagnesemia: Plan: Corrected with replacement therapy. Present on admission. Serial labs (4) Elevated troponin: Plan: Minimal. No chest pain. No acute EKG changes. No evidence of acute coronary syndrome (5) Stage 4 very severe COPD by GOLD classification: Plan: Currently stable. Continue current medical management. Plan Hopeful discharge to home in 3 to 4 days on oral antibiotic if no need for surgical intervention Admission and Anticipated Discharge Date Admission Date: September 19, 2024 Subjective Alert and oriented. No distress. She is asking for Ativan on a as needed basis. General surgery consultation noted. She will be allowed clear liquids at this time. She remains on intravenous Zosyn. IV fluid rate has been tapered down. Serial labs ordered. Hypokalemia and hypomagnesemia present on admission have been corrected Review of Systems 2 Review of Systems: Constitutionalno fever or chills ENTno blurred vision, no double vision, no epistaxis, no sore throat Respiratoryno cough, no wheezing, no shortness of breath Cardiacno palpitations, no chest pain, no syncope Paz nausea, vomiting, diarrhea, melena, hematochezia. She does have some abdominal pain from the underlying diverticulitis GUno urinary retention, no urinary incontinence, no dysuria, no hematuria Musculoskeletalno joint pain, no muscle tenderness Skinno bruising, no rashes, no pruritus Neurono isolated weakness, no paresthesia, no weakness Psychno depression, no anxiety Physical Exam 2 Physical Exam: General-alert and oriented x3, no fever, no chills HEENT-head atraumatic and normocephalic, pupils equal and reactive to light, extraocular muscles intact Neck-no lymphadenopathy or thyromegaly, trachea midline Chest-clear to auscultation. No rales, wheezing or rhonchi Cardiac-regular rate and rhythm, normal S1 and S2 Abdomen-normal bowel sounds, no hepatosplenomegaly. Mild tenderness to palpation in the mid lower abdomen and left lower quadrant. No masses. No rebound or guarding Extremities-no cyanosis, clubbing, or edema Neuro-cranial nerves II through XII intact, motor and sensory function within normal limits, strength symmetrical, no focal deficits Psych-normal affect, normal mood Results & Data Results & Data Vital Signs (Past 12 Hours) Vital Signs Temp Pulse Pulse Resp BP BP Pulse Ox 09/19/24 11:00 36.8 C 123 H 24 157/94 H 97 09/19/24 08:28 105 H 09/19/24 07:30 36.9 C 100 H 18 147/91 H 98 09/19/24 06:00 09/19/24 05:09 09/19/24 03:24 78 18 98 09/19/24 03:00 83 20 98 09/19/24 03:00 111/71 09/19/24 02:51 87 21 97 09/19/24 02:30 131/81 09/19/24 02:30 131/81 09/19/24 02:30 131/81 09/19/24 02:27 93 H 21 99 09/19/24 02:06 98 H 21 97 09/19/24 02:00 128/90 09/19/24 01:54 92 H 20 97 09/19/24 01:42 97 H 21 98 09/19/24 01:40 93 H 09/19/24 01:36 94 H 23 99 09/19/24 01:30 136/104 H 09/19/24 01:24 97 H 22 99 09/19/24 01:21 94 H 18 99 09/19/24 01:15 95 H 23 99 09/19/24 01:06 93 H 22 99 09/19/24 01:00 155/93 H 09/19/24 01:00 155/93 H 09/19/24 00:57 94 H 21 99 09/19/24 00:51 96 H 21 99 09/19/24 00:45 118 H 23 98 09/19/24 00:43 37.2 C 09/19/24 00:39 100 H 21 99 09/19/24 00:21 97 H 24 97 O2 Del Method O2 Flow Rate 09/19/24 11:00 Nasal Cannula 4 09/19/24 08:28 09/19/24 07:30 Nasal Cannula 4 09/19/24 06:00 Nasal Cannula 09/19/24 05:09 Nasal Cannula 6 09/19/24 03:24 09/19/24 03:00 09/19/24 03:00 09/19/24 02:51 09/19/24 02:30 09/19/24 02:30 09/19/24 02:30 09/19/24 02:27 09/19/24 02:06 09/19/24 02:00 09/19/24 01:54 09/19/24 01:42 09/19/24 01:40 09/19/24 01:36 09/19/24 01:30 09/19/24 01:24 09/19/24 01:21 09/19/24 01:15 09/19/24 01:06 09/19/24 01:00 09/19/24 01:00 09/19/24 00:57 09/19/24 00:51 09/19/24 00:45 09/19/24 00:43 09/19/24 00:39 09/19/24 00:21 Laboratory Results 09/19/24 08:14 09/19/24 08:14 PG Care Time/CCT Total # of Minutes Spent Total Time Spent with Patient: Total time spent is greater than 50% in coordination of care (as documented) at patient's floor/unit and/or counseling patient: Coding Level of Care Code 20613 SUB INP/OBS CARE 3/50MIN Diagnoses Diverticulitis K57.92 Hypokalemia E87.6 Hypomagnesemia E83.42 Elevated troponin R79.89 Stage 4 very severe COPD by GOLD classification J44.9
[2024-09-19] MEDS: LORazepam 0.5 MG TAB PO PRN (13:51)
[2024-09-19] MEDS: ACETAMINOPHEN 500 MG TAB PO PRN (13:59)
[2024-09-19] MEDS: MIRTAZAPINE SOLTAB 15 MG PO SCH (20:11)
[2024-09-19] MEDS: ESCITALOPRAM OXALATE 20 MG TAB PO SCH (20:11)
[2024-09-19] MEDS ORDERED: ATORVASTATIN 40 MG TAB PO SCH (21:00)
[2024-09-20] MEDS: LORazepam 0.5 MG TAB PO PRN (05:22)
[2024-09-20 06:36] LABS: Hematocrit (blood only) 28.2 % (37.0-47.0); Hemoglobin 9.3 g/dl (12.0-16.0); Mean Corpuscular Hemoglobin 29.5 pg (25.0-34.0); Mean Corpuscular Volume 89.5 fL (80.0-100.0); Mean Platelet Volume 9.6 fL (9.4-12.4); Platelet Count 382 K/uL (130-400); RDW Coefficient of Variation 13.4 % (11.5-14.5); RDW Standard Deviation 43.9 fL (36.4-46.3); Red Blood Count 3.15 M/uL (4.20-5.40); White Blood Count 14.74 K/ul (4.8-10.8)
[2024-09-20 07:07] LABS: Albumin Level 2.8 gm/dl (3.4-5.0); BUN Creatinine Ratio 9.8 (10-20); Bilirubin Direct 0.1 mg/dl (0-0.2); Bilirubin,Total 0.3 mg/dl (0.2-1.0); Calcium 8.2 mg/dl (8.6-10.3); Creatinine Clr Calc Pharmacy 84.2 ml/min; Potassium 3.2 mmol/L (3.5-5.1); Total Protein 5.3 gm/dl (6.0-8.3)
[2024-09-20] MEDS ORDERED: AZITHROMYCIN 250 MG TAB PO SCH (09:00)
--- NOTE | 2024-09-20 11:02 | Surgery Progress Note ---
Date of Service September 20, 2024 Assessment & Plan (1) Diverticulitis: Plan: Slow progress. No fevers the past 24 hours and white blood cell count slowly decreasing. No urgent indication for surgical intervention however I would keep her at clear liquids for now. Admission and Anticipated Discharge Date Admission Date: September 19, 2024 Subjective Patient seen. She primarily complains of back pain. She is unsure if this is related to her diverticulitis. She has been afebrile for the last 24 hours. She is tolerating clear liquids but does not have an appetite Physical Exam Constitutional: WD/WN, vitals as above no acute distress and not ill ajit earing Eyes: PERRL, conjunctivae normal, anicteric sclerae EOM intact bilaterally ENMT: external ear and nose normal, oropharynx normal Ears: no hearing impairment Neck: trachea midline, no thyromegaly Respiratory: normal respiratory effort; no respiratory distress and does not use accessory muscles Cardiovascular: Rate/Rhythm: regular rate and regular rhythm Gastrointestinal (Abdomen): Soft. Mild suprapubic and left lower quadrant tenderness. No evidence of peritonitis no rebound. Skin: no rashes, warm and dry Psychiatric: Orientation: alert, oriented x 3 and cooperative Results & Data Vital Signs (Past 12 Hours) Vital Signs Temp Pulse Pulse Resp BP Pulse Ox O2 Del Method 09/20/24 09:19 Nasal Cannula 09/20/24 08:02 36.7 C 102 H 16 142/88 H 978 H Nasal Cannula 09/20/24 07:18 118 H 18 99 Nasal Cannula O2 Flow Rate 09/20/24 09:19 4 09/20/24 08:02 4 09/20/24 07:18 4 PG Care Time/CCT Total # of Minutes Spent Total Time Spent with Patient: Total time spent is greater than 50% in coordination of care (as documented) at patient's floor/unit and/or counseling patient: Coding Level of Care Code 45478 SUB INP/OBS CARE 06/03MIN Diagnoses Diverticulitis K57.92
[2024-09-20] MEDS: POTASSIUM CHLORIDE CRTAB 20 MEQ TABCR PO SCH (11:15)
[2024-09-20] MEDS ORDERED: CALCIUM CARBONATE 500 MG CHEWABLE TAB PO PRN (11:24)
[2024-09-20] MEDS: CALCIUM CARBONATE 500 MG CHEWABLE TAB PO STA (11:35)
--- NOTE | 2024-09-20 13:41 | XRay Report ---
XR chest 1V portable CLINICAL HISTORY: wheezing COMPARISON STUDY: 09/18/2024 and 05/12/2023 FINDINGS: Single view portable chest redemonstrates a asymmetrical hyperexpansion of the right lung c ompared with the left. There is a white line in the superior and axillary portion of the right upper lobe simulating a pneumothorax. I can see lung markings beyond this line and a similar appearance was present on 05/12/2023. Increased air reticular markings have developed in the left mid and lower lung zones suspicious for upper airway infection/bronchitis. IMPRESSION: Persistent findings of asymmetric emphysema predominantly involving the right lung. Prob able skinfold simulating a pneumothorax on the right. This could be confirmed with a nonportable erec t radiograph or CT scanning as warranted. Increased reticular markings in the left mid and lower lung zone suspicious for acute on chronic inte rstitial lung disease or upper airway infection. ACT 112: Negative or not required by law. Electronically signed by: Evette Davis M.D. 09/20/2024 1:39 PM
--- NOTE | 2024-09-20 13:50 | Hospitalist Progress Note ---
Date of Service September 20, 2024 Assessment & Plan (1) Pneumothorax, right: Plan: Worsening of respiratory status prompted repeat portable chest x-ray today, September 20. It appears she has developed a right spontaneous pneumothorax. Pulmonary medicine consultation has been requested. She will be seen shortly (2) Diverticulitis: Plan: Recurrent sigmoid diverticulitis. Appreciate general surgery consultation and recommendations. Continue intravenous Zosyn for now, day 2. Fortunately, her white blood cell count is trending down, now 14,000. Continue clear liquids and IV fluids. Serial labs. Supportive care (3) Hypokalemia: Plan: Initially corrected with replacement therapy but hypokalemic again. Scheduled oral potassium dosing ordered. Serial labs. Serial labs (4) Hypomagnesemia: Plan: Corrected with replacement therapy. Present on admission. Serial labs (5) Elevated troponin: Plan: Minimal. No chest pain. No acute EKG changes. No evidence of acute coronary syndrome (6) Stage 4 very severe COPD by GOLD classification: Plan: Currently stable. Continue current medical management. Plan To be determined. Admission and Anticipated Discharge Date Admission Date: September 19, 2024 Subjective Alert and oriented. She has developed some worsening respiratory status however. Chest x-ray was obtained today and it appears that she may have developed a spontaneous right pneumothorax. Stat pulmonary medicine consultation has been requested. I will speak to her daughter, Heidi, by phone shortly. Surgery entry noted. White blood cell count is fortunately trending downward. She remains on clear liquids, IV fluids, and intravenous Zosyn. Oral potassium ordered for mild hypokalemia. Review of Systems 2 Review of Systems: Constitutionalno fever or chills ENTno blurred vision, no double vision, no epistaxis, no sore throat Respiratoryno cough, no wheezing. Her symptoms of shortness of breath have worsened however Cardiacno palpitations, no chest pain, no syncope Paz nausea, vomiting, diarrhea, melena, hematochezia. She does have some abdominal pain from the underlying diverticulitis GUno urinary retention, no urinary incontinence, no dysuria, no hematuria Musculoskeletalno joint pain, no muscle tenderness Skinno bruising, no rashes, no pruritus Neurono isolated weakness, no paresthesia, no weakness Psychno depression, no anxiety Physical Exam 2 Physical Exam: General-alert and oriented x3, no fever, no chills HEENT-head atraumatic and normocephalic, pupils equal and reactive to light, extraocular muscles intact Neck-no lymphadenopathy or thyromegaly, trachea midline Chest-tachypnea and diffuse bilateral wheezing. Diminished breath sounds on the right side. Cardiac-mildly tachycardic rate and regular rhythm, normal S1 and S2 Abdomen-normal bowel sounds, no hepatosplenomegaly. Mild tenderness to palpation in the mid lower abdomen and left lower quadrant. No masses. No rebound or guarding Extremities-no cyanosis, clubbing, or edema Neuro-cranial nerves II through XII intact, motor and sensory function within normal limits, strength symmetrical, no focal deficits Psych-flat affect Results & Data Results & Data Vital Signs (Past 12 Hours) Vital Signs Temp Pulse Pulse Resp BP Pulse Ox O2 Del Method 09/20/24 09:19 Nasal Cannula 09/20/24 08:02 36.7 C 102 H 16 142/88 H 978 H Nasal Cannula 09/20/24 07:18 118 H 18 99 Nasal Cannula O2 Flow Rate 09/20/24 09:19 4 09/20/24 08:02 4 09/20/24 07:18 4 Laboratory Results 09/20/24 05:41 09/20/24 05:41 PG Care Time/CCT Total # of Minutes Spent Total Time Spent with Patient: Total time spent is greater than 50% in coordination of care (as documented) at patient's floor/unit and/or counseling patient: Coding Level of Care Code 68258 SUB INP/OBS CARE 3/50MIN Diagnoses Pneumothorax, right J93.9 Diverticulitis K57.92 Hypokalemia E87.6 Hypomagnesemia E83.42 Elevated troponin R79.89 Stage 4 very severe COPD by GOLD classification J44.9
--- NOTE | 2024-09-20 14:56 | Pulmonary Consultation ---
Date of Consultation September 20, 2024 Assessment & Plan (1) Pneumothorax, right: Plan Spontaneous right pneumothorax related to secondary lung disease w/ COPD -chest X-ray 09/20/2024 was performed which showed a spontaneous right pneumothorax -14fr pigtail catheter placed anteriorly -Repeat chest x-ray shows improvement in pneumothorax with residual apical PTX -Will plan to leave chest tube to -20 of suction overnight. With possible clamp trial on 09/21/2024 if no air leak. -Repeat chest x-ray in am Supervising Physician Co-Signing Physician Notes Patient seen and examined. EMR reviewed. Images were independently reviewed. Discussed with ARMIN and agree with assessment plan as noted. Secondary pneumothorax. Chest tube placed to suction. Follow-up chest x-ray. Management will depend on clinical course. Will continue to follow with you History of Present Illness Reason for Consultation: Spontaneous right pneumothorax Attending Physician: David Sargent MD History of Present Illness Madi Romo is a 63-year-old female with past medical history of COPD on oxygen at home, hyperlipidemia, hypertension, coronary artery disease, pulmonary nodules, anxiety; who presented to [facility] ED on 09/19/2024 with back pain. Of note patient is followed by palliative care for advanced COPD and was recently admitted from 09/12/2024 to 09/17/2024 with diverticulitis treated conservatively without surgery. Patient admitted for concern of sepsis and diverticulitis by hospitalist service. Patient had worsening respiratory status with increasing tachypnea. A chest X-ray was performed which showed a spontaneous right pneumothorax. Pulmonary consulted for evaluation and management. Patient evaluated at bedside in mild distress, hemodynamic stable without tension physiology. An urgent right apical chest tube was placed and secured. Repeat chest x-ray shows some resolution of pneumothorax with small apical component remaining. Allergies Allergy/AdvReac Type Severity Reaction Status Date / Time bupropion [From Wellbutrin] Allergy Severe Unknown Verified 09/12/24 14:15 sulfamethoxazole Allergy Severe THROAT AND Verified 09/12/24 14:15 EARS SWELL trimethoprim Allergy Severe THROAT AND Verified 09/12/24 14:15 EARS SWELL codeine AdvReac Intermediate STOMACH Verified 09/12/24 14:15 CRAMPS, "KNOCKS ME OUT FOR DAYS" Home Medications Medication Instructions Recorded Confirmed Type aspirin 81 mg tablet,delayed 81 mg PO Q OTHER DAY 04/25/19 09/19/24 History release (Adult Low Dose Aspirin) cholecalciferol (vitamin D3) 25 25 mcg PO QAM 03/26/21 09/19/24 History mcg (1,000 unit) capsule ascorbic acid 1,000 1 ea PO DAILY PRN Cold Symptoms 04/03/22 09/19/24 History [id number]-[id number]-[id number] powder effervescent pack (Emergen-C) Medical Marijuana 1 dose PO DIRECTED PRN Anxiety 06/22/22 09/19/24 History guaifenesin 600 mg tablet, 600 mg PO BID PRN congestion #60 12/09/22 09/19/24 Rx extended release 12 hr (Mucinex) tabs Portable Oxygen #1 ea 07/29/23 05/22/24 Rx Portable Oxygen #1 ea 01/28/24 05/22/24 Rx azithromycin 250 mg tablet 250 mg PO 3XWK #36 tabs 01/28/24 09/19/24 Rx atorvastatin 40 mg tablet 40 mg PO HS #90 tabs 05/22/24 09/19/24 Rx escitalopram oxalate 20 mg tablet 20 mg PO HS #90 tabs 05/22/24 09/19/24 Rx pantoprazole 40 mg tablet,delayed 40 mg PO BID #180 tabs 05/22/24 09/19/24 Rx release roflumilast 500 mcg tablet 500 mcg PO DAILY #90 tabs 07/11/24 09/19/24 Rx (Daliresp) albuterol sulfate 90 mcg/actuation 2 inh inhalation QID PRN shortness 07/18/24 09/19/24 Rx aerosol inhaler of breath or wheezing 3 months #8.5 grams ipratropium 0.5 mg-albuterol 3 mg 3 ml inhalation Q6H end stage COPD 07/18/24 09/19/24 Rx (2.5 mg base)/3 mL nebulization 3 months #180 mL soln mirtazapine 15 mg disintegrating 15 mg PO HS anorexia 09/12/24 09/19/24 History tablet morphine 20 mg/5 mL (4 mg/mL) oral See Rx Instructions .Route 09/12/24 09/19/24 History solution .COMPLEX PRN Shortness Of Breath Lactobacillus acidophilus, 1 packet PO TIDM 30 days #30 ea 09/17/24 09/19/24 Rx bulgaricus 100 million cell granules packet (Floranex) ciprofloxacin 500 mg/5 mL oral 500 mg (5 mL) PO Q12H colitis 7 09/17/24 09/19/24 Rx suspension days #70 mL ciprofloxacin HCl 500 mg tablet 500 mg PO BID #14 tabs 09/17/24 09/19/24 Rx metronidazole 500 mg tablet 500 mg PO TID #21 tabs 09/17/24 09/19/24 Rx simethicone 80 mg chewable tablet 80 mg PO Q6H PRN abdominal 09/17/24 09/19/24 Rx (Gas Relief (simethicone)) distention 30 days #30 tabs Patient History Medical History Sleep apnea cpap On home oxygen therapy 3LPM Pneumonia due to COVID-19 virus May/Jun 2021 > hospitalized at [facility] Constipation Colitis resolved per pt Myocardial infarct November 2011 Surgical History History of nasal surgery History of nasal cauterization History of tonsillectomy History of hysterectomy partial History of appendectomy Family History Father Lung cancer Mother , age 68 Stroke Brother Enlarged liver Grandmother (Maternal) Colorectal cancer Other Diabetes Hypertension Denies family history of Ovarian cancer Prostate cancer Breast cancer Social History Smoking Status: Never smoker Tobacco Type: Cigarettes Age Started Using Tobacco: 8; Age Quit Using Tobacco: 52; packs per day: 1.5; Cigarettes Per Day: 20; Second Hand Exposure: No; Do You Dip or Chew Tobacco: No; Hx Alcohol Use: No Hx Substance Use: No Preferred Language: Amharic Communication Ability: Effective Visual Impairment: No Limitations Hearing Ability: Normal Protection Consultant Required: Yes Beliefs That Will Affect Care: None marital status: Current Living Situation: Spouse Current Living Situation Comment: current occupational status: retired Feels Safe at Home: Yes Childhood Exposure to Second-Hand Smoke: Yes Dental Care, Regularly: No Physical Activity Frequency: Does not Exercise Seatbelt Use: always Sunscreen Use: No Assistive Devices: Oxygen - Continuous and Walker Review of Systems 2 Review of Systems: Constitutional: No Weight Change, No Fever, No Chills, No Night Sweats, No Fatigue, No Malaise ENT/Mouth: No Hearing Changes, No Ear Pain, No Nasal Congestion, No Sinus Pain, No Hoarseness, No sore throat, No Rhinorrhea, No Swallowing Cardiovascular: + SOB. No Chest Pain, No PND, No Dyspnea on Exertion, No Orthopnea, No Claudication, No Edema, No Palpitations Respiratory: + dyspnea. No Cough, No Sputum, No Wheezing, No Smoke Exposure. Gastrointestinal: + abdominal pain lower. No Nausea, No Vomiting, No Diarrhea, No Constipation, No Pain, No Heartburn, No Anorexia, No Dysphagia, No Hematochezia, No Melena, No Flatulence, No Jaundice Genitourinary: No Dysuria, No hematuuria. Musculoskeletal: + lower back pain. No Arthralgias, No Myalgias, No Joint Swelling, No Joint Stiffness, No Neck Pain, No Injury History Skin: No Skin Lesions, No Pruritis. Neuro: No Loss of Consciousness, No Syncope, No Dizziness, No Headache, No Coordination Changes, No Recent Falls Psych: + Anxiety/Panic, No Depression, No Insomnia, No Personality Changes, No Delusions, No Rumination, No SI/HI/AH/VH, No Social Issues, No Memory Changes, No Violence/Abuse Hx., No Eating Concerns Physical Exam 2 Physical Exam: VITALS: Reviewed. WEIGHT/BMI reviewed. GEN: Chronically ill appearing patient lying in bed in mild distress. PSYCH: Good Judgment. AOx3. Normal memory, mood, and affect. NECK: Supple, with no masses. trachea midline. no JVD. CV: RRR, no m/r/g. LUNGS: Lungs clear in left upper and lower lobes, right lung sounds diminished laterally but clear medially in upper and lower lobes. Chest rise symmetrical, breathing mildly labored. ABD: Soft, NT/ND, NBS, no masses or organomegaly. SKIN: Warm, well perfused. No skin rashes or abnormal lesions. MSK: No deformities, Normal gait. EXT: No clubbing, cyanosis, or edema. Results & Data Results & Data Vital Signs (Past 12 Hours) Vital Signs Temp Pulse Pulse Resp BP Pulse Ox O2 Del Method 09/20/24 09:19 Nasal Cannula 09/20/24 08:02 36.7 C 102 H 16 142/88 H 978 H Nasal Cannula 09/20/24 07:18 118 H 18 99 Nasal Cannula O2 Flow Rate 09/20/24 09:19 4 09/20/24 08:02 4 09/20/24 07:18 4 Laboratory Results 09/20/24 05:41 09/20/24 05:41 Abnormal Lab Results 09/20/24 05:41 WBC 14.74 H RBC 3.15 L Hgb 9.3 L Hct 28.2 L MCV 89.5 MCH 29.5 MCHC 33.0 RDW Std Deviation 43.9 RDW Coeff of Luis 13.4 Plt Count 382 MPV 9.6 Sodium 142 Potassium 3.2 L Chloride 102 Carbon Dioxide 33 H Anion Gap 7 BUN 4 L Creatinine 0.41 L Est Cr Clr Drug Dosing 84.2 eGFR 109.12 BUN/Creatinine Ratio 9.8 L Glucose 92 Calcium 8.2 L Total Bilirubin 0.3 Direct Bilirubin 0.1 AST 31 ALT 18 Alkaline Phosphatase 85 Total Protein 5.3 L D Albumin 2.8 L Diagnostic Findings Chest X-Ray 09/20/24 13:05 XR chest 1V portable CLINICAL HISTORY: wheezing COMPARISON STUDY: 09/18/2024 and 05/12/2023 FINDINGS: Single view portable chest redemonstrates a asymmetrical hyperexpansion of the right lung compared with the left. There is a white line in the superior and axillary portion of the right upper lobe simulating a pneumothorax. I can see lung markings beyond this line and a similar appearance was present on 05/12/2023. Increased air reticular markings have developed in the left mid and lower lung zones suspicious for upper airway infection/bronchitis. IMPRESSION: Persistent findings of asymmetric emphysema predominantly involving the right lung. Probable skinfold simulating a pneumothorax on the right. This could be confirmed with a nonportable erect radiograph or CT scanning as warranted. Increased reticular markings in the left mid and lower lung zone suspicious for acute on chronic interstitial lung disease or upper airway infection. ACT 112: Negative or not required by law. Electronically signed by: Evette Davis M.D. 09/20/2024 1:39 PM PG Care Time/CCT Total # of Minutes Spent Total Time Spent with Patient: Total time spent is greater than 50% in coordination of care (as documented) at patient's floor/unit and/or counseling patient: 40 minutes This includes time spent evaluating patient, direct bedside discussions, chart review, placing orders, interpretation of diagnostic studies with consultants, patients, and family members, as well as other required patietn management activities. The time is exclusive of all separately billable procedures. [place] [address] INT INP/OBS CARE 3/75MIN Patient Type New Diagnoses Pneumothorax, right J93.9 Time Spent (min) 40 Comment I spent 40 minutes looking at the chart, images, discussing with the patient.
--- NOTE | 2024-09-20 15:02 | Procedure Note ---
Procedure Note Date of Service September 20, 2024 Procedure: 14 Barbadian pigtail catheter placement, right Indication: Secondary pneumothorax Consent risk and benefits were discussed with the patient. She agreed. Written consent was verified prior to commencement of the procedure. Manufacturing Storeperson Dr. Braun, TYRELL Palacios Estimated blood loss: Less than 5 mL Anesthesia: 5 mL 1% lidocaine without epinephrine locally. Procedure: T patient was admitted with diverticulitis. She had worsening of her oxygen requirement and chest x-ray was performed today which revealed a small to moderate-sized apical pneumothorax on the right. I discussed risk and benefits of chest tube placement with the patient to include surveillance and monitoring. She wants to be as aggressive as possible and is in agreement to proceed with chest tube placement. The patient was placed in a semiupright seated position. The infraclavicular space in the midclavicular line on the right was cleansed using chlorhexidine and a sterile field established. An area approximately 2 cm below the clavicle in the midclavicular line was anesthetized with lidocaine. The muscle and deeper soft tissues were anesthetized using a finder needle. With the finder needle I was able to aspirate air. The finder needle was then withdrawn. A small skin selena was made with a scalpel. An 18-gauge needle was then advanced on a similar line until I was able to aspirate air. The syringe was withdrawn leaving the needle in place. A wire was passed through the needle and then the needle was withdrawn leaving the wire in the pleural space. A 14 Barbadian dilator was then passed over the wire to dilate the skin and soft tissues. This passed with ease. The dilator was removed leaving the wire in place. A 14 Barbadian pigtail catheter was then loaded on a straightening catheter and advanced over the wire into the pleural space. The straightening catheter and wire were removed leaving the pigtail catheter in place. A three-way stopcock was attached. The tube was attached to suction with an initial 3-4+ air leak which decreased down to an intermittent 1+ air leak on the Pleur-evac system. The skater catheter fixation system was attached to the chest wall and the catheter secured. 2 Tegaderms were also used to secure the tubing. Catheter was att ached to suction at 20 cm of water. Post procedure chest x-ray is pending. The patient tolerated the procedure well. [facility] [place] Procedure Codes (Charges) Pulmonary/Thoracic Procedure 1: Pulmonary and Thoracic: 21685 Tube thoracostomy Coding CPT Codes Pulmonary/Thoracic - Pulmonary and Thoracic: 34949 Tube thoracostomy ([id number]) Additional Codes Date of Service (PG.SURGERY)
--- NOTE | 2024-09-20 15:21 | XRay Report ---
XR chest 1V portable CLINICAL HISTORY: chest tube COMPARISON STUDY: Earlier today through 05/12/[address] CT of 09/18/2024. FINDINGS: There is interval right upper pigtail chest tube. There is a small right apical pneumothora x with 2 cm pleural separation at the right apex. There is vertical skinfold artifact overlying the l ateral right chest. There is severe emphysema. No consolidation or pleural effusion. IMPRESSION: Small right apical pneumothorax. ACT 112: Negative or not required by law. Electronically signed by: Emanuel Foley M.D. 09/20/2024 3:20 PM
[2024-09-20] MEDS: CALCIUM CARBONATE 500 MG CHEWABLE TAB PO PRN (18:24)
[2024-09-21] MEDS: KETOROLAC TROMETHAMINE 15 MG/ML VIAL IV PRN (01:58)
--- NOTE | 2024-09-21 08:04 | Pulmonology Progress Note ---
Date of Service September 21, 2024 Assessment & Plan (1) Pneumothorax, right: (2) Pulmonary cachexia due to COPD: (3) Stage 4 very severe COPD by GOLD classification: (4) Bronchopleural fistula: Plan Impression: 63-year-old female with advanced COPD (last FEV1 33% predicted with a DLCO of 25% predicted) admitted with diverticulitis he developed spontaneous secondary pneumothorax requiring chest tube placement. She has evidence of ongoing air leak consistent with bronchopleural fistula this morning. Recommendations: 1. Bronchopleural fistula: Suction on the chest tube was increased to 40 cm of water. Will obtain noncontrast CT of the chest to evaluate parenchyma. If the patient is a poor surgical candidate and may require long-term management of the chest tube. Healing may be compromised by the patient's poor nutritional status. Try to avoid positive airway pressure or coughing at this point in time. 2. COPD: Not bronchospastic currently. No indication for steroids. Dilators. 3. Hypoxemia: Chronic. Continue oxygen titrated to keep saturations around 90%. Patient's overall prognosis is guarded. Engaging palliative care might be appropriate Admission and Anticipated Discharge Date Admission Date: September 19, 2024 Subjective Patient seen and examined. EMR reviewed. The patient is awake alert and conversant. Her pain is well-controlled. She is having some shortness of breath and complaining of some discomfort on the lower left abdomen today. No cough or sputum production. No crepitus. No voice changes Review of Systems 2 Review of Systems: All systems reviewed & are unremarkable except as noted in Subjective Physical Exam 2 Constitutional: + cachectic and + frail appearing Neck: trachea midline, no thyromegaly Respiratory: no respiratory distress, no labored breathing, no cough and not tachypneic Auscultation: + diminished lung sounds; no crackles and no wheezes Chest tube dressing clean dry and intact. 1 to 2+ fairly continuous air leak. Cardiovascular: RRR, no murmur, no edema Gastrointestinal (Abdomen): normal bowel sounds, soft, nontender, no hepatosplenomegaly Musculoskeletal: Extremities: extremities normal to inspection Skin: no rashes, warm and dry Neurologic: Nonfocal exam Lymphatic: no cervical lymphadenopathy Results & Data Results & Data Vital Signs (Past 12 Hours) Vital Signs Temp Pulse Pulse Resp BP Pulse Ox O2 Del Method 09/21/24 07:10 104 H 26 H 94 Oxymask 09/21/24 07:07 90 09/21/24 05:08 Oxymask 09/21/24 02:10 37.1 C 108 H 22 154/87 H 92 Nasal Cannula 09/21/24 00:06 130 H 09/20/24 23:00 37.0 C 122 H 20 151/78 H 93 Nasal Cannula 09/20/24 22:32 Nasal Cannula O2 Flow Rate 09/21/24 07:10 5 09/21/24 07:07 09/21/24 05:08 5 09/21/24 02:10 5 09/21/24 00:06 09/20/24 23:00 3 09/20/24 22:32 4 Laboratory Results 09/20/24 05:41 09/20/24 05:41 Diagnostic Findings Chest x-ray from today was independently reviewed. The tube appears to be in good position. There does appear to be an apical and potentially lateral pneumothorax present. PG Care Time/CCT Total # of Minutes Spent Total Time Spent with Patient: Total time spent is greater than 50% in coordination of care (as documented) at patient's floor/unit and/or counseling patient: Coding Level of Care Code 77710 SUB INP/OBS CARE 2/35MIN Diagnoses Pneumothorax, right J93.9 Pulmonary cachexia due to COPD R64; J44.9 Stage 4 very severe COPD by GOLD classification J44.9 Bronchopleural fistula J86.0
--- NOTE | 2024-09-21 08:12 | XRay Report ---
EXAM: XR chest 1V portable CLINICAL HISTORY: chest tube TECHNIQUE: Radiograph of chest was acquired. COMPARISON: 09/18/2024 21:02:08 FINDINGS: Pig tail catheter seen insitu on right side, directed cranially and with coiled tip in right upper zone. Mild right sided pneumothorax Linear air space opacities in bilateral lung payan- as seen previously Rest of the lungs are clear and well-expanded No pleural effusion. The cardiomediastinal silhouette is within normal limits. No acute osseous abnormality. Soft tissue thickening along the right lateral chest wall. IMPRESSION: 1. Pig tail catheter seen insitu on right side, directed cranially and with coiled tip in right upper zone.- new finding 2. Mild right sided pneumothorax - new finding 3. Linear air space opacities in bilateral lung payan- as seen previously 4. Soft tissue thickening along the right lateral chest wall.- likely post procedural No other interval changes Electronically signed by Ludwig Pickens 09-21-2024 08:12 AM
[2024-09-21] MEDS: dilTIAZem HCl 60 MG TAB PO SCH (08:55)
--- NOTE | 2024-09-21 09:20 | CT Scan Report ---
CT chest diagnostic wo con CT DOSE: 221.36 mGy.cm CLINICAL HISTORY: Evaluate right lung for PTX depsite chest tube. TECHNIQUE: Multiaxial CT images of the chest were performed without contrast. A dose lowering techni que was utilized adhering to the principles of ALARA. COMPARISON STUDY: X-rays yesterday and CT of 09/18/2024 FINDINGS: There is severe emphysema most advanced in the upper lung lobes. There is a moderate to lar ge anterior right pneumothorax. There is a right upper chest tube from an anterior approach with the distal pigtail at the posterior upper right pleural space in contact with the posterior superior aspe ct of the right lung. There is mild dependent atelectasis at the right lower lobe. There is a trace r ight pleural effusion. There is minimal atelectasis left lung base. No pleural effusion or pneumothor ax on the left. A few small pulmonary nodules are stable. No enlarged adenopathy. No pericardial effu lor. There are diffuse coronary artery calcifications. No acute osseous findings. IMPRESSION: 1. Moderate to large right pneumothorax. 2. The pigtail of the chest tube is in contact with the right upper lung and this may be occluding th e holes. Suggest withdrawing the tube approximately 2 cm to see if that results in aspirated air. 3. Otherwise as described. ACT 112: Negative or not required by law. Electronically signed by: Emanuel Foley M.D. 09/21/2024 9:18 AM
[2024-09-21] MEDS: dilTIAZem HCl 5 MG/ML 5 ML VIAL IV STA (09:31)
[2024-09-21 10:39] LABS: Basophils # (auto) 0.02 K/uL (0.00-0.20); Basophils % (auto) 0.1 %; Eosinophils # (auto) 0.06 K/uL (0.00-0.50); Eosinophils % (auto) 0.4 %; Hematocrit (blood only) 30.2 % (37.0-47.0); Hemoglobin 9.9 g/dl (12.0-16.0); Immature Granulocytes # (auto) 0.07 K/uL (0.01-0.20); Immature Granulocytes % (auto) 0.5 %; Lymphocytes # (auto) 0.83 K/uL (1.20-3.40); Lymphocytes % (auto) 6.1 %; Mean Corpuscular Hemoglobin 29.1 pg (25.0-34.0); Mean Corpuscular Hgb Conc 32.8 g/dL (32.0-36.0); Mean Corpuscular Volume 88.8 fL (80.0-100.0); Mean Platelet Volume 9.2 fL (9.4-12.4); Monocytes # (auto) 0.72 K/uL (0.11-0.59); Monocytes % (auto) 5.3 %; Neutrophils % (auto) 87.6 %; Platelet Count 461 K/uL (130-400); RDW Coefficient of Variation 13.1 % (11.5-14.5); RDW Standard Deviation 42.6 fL (36.4-46.3)
[2024-09-21 10:58] LABS: BUN Creatinine Ratio 6.4 (10-20); Calcium 8.3 mg/dl (8.6-10.3); Creatinine Clr Calc Pharmacy 79.1 ml/min; Potassium 2.9 mmol/L (3.5-5.1)
--- NOTE | 2024-09-21 11:34 | Hospitalist Progress Note ---
Date of Service September 21, 2024 Assessment & Plan (1) Pneumothorax, right: Plan: Pulmonary medicine consultation and recommendations appreciated. She now has a pigtail catheter on the right side. There may be a bronchopleural fistula present. (2) Diverticulitis: Plan: Recurrent sigmoid diverticulitis present on admission.. Appreciate general surgery consultation and recommendations. Continue intravenous Zosyn, day 3. Fortunately, her white blood cell count is trending down, and there does not appear to be any indication for immediate surgery. Continue clear liquid diet. Serial labs. Supportive care (3) Sinus tachycardia: Plan: Diltiazem has been started. Will avoid beta-blockers due to severity of underlying COPD. Thyroid profile reveals normal free T4 level with slightly low free T3 level. Fortunately, she is not thyrotoxic. Telemetry (4) Hypokalemia: Plan: Initially corrected with replacement therapy but hypokalemic again. Oral potassium dosing has been uptitrated along with parenteral replacement. Serial labs (5) Hypomagnesemia: Plan: Corrected with replacement therapy. Present on admission. Serial labs (6) Elevated troponin: Plan: Minimal. No chest pain. No acute EKG changes. No evidence of acute coronary syndrome (7) Stage 4 very severe COPD by GOLD classification: Plan: Currently stable. Continue current medical management. Plan To be determined. Admission and Anticipated Discharge Date Admission Date: September 19, 2024 Subjective Alert and oriented. No distress. Pulmonary medicine consultation appreciated. She now has a right sided thoracic pigtail catheter in place for the right pneumothorax. There may be a bronchopleural fistula according to pulmonary medicine. Fortunately, the acute recurrent diverticulitis is improving and there is no indication for emergent surgery at this time. She remains on intravenous Zosyn, day 3, and white count is downtrending. Potassium remains low and oral replacement has been increased and parenteral replacement ordered. I attempted to call her daughter, Heidi, but there was no answer. She has sinus tachycardia and diltiazem has been added. Fortunately, her blood pressure is stable. Will avoid beta-blockers due to severity of underlying COPD. Review of Systems 2 Review of Systems: Constitutionalno fever or chills ENTno blurred vision, no double vision, no epistaxis, no sore throat Respiratoryno cough, no wheezing. No shortness of breath at rest. Overall, her respiratory status is improved Cardiacno palpitations, no chest pain, no syncope Paz nausea, vomiting, diarrhea, melena, hematochezia. She does have some abdominal pain from the underlying diverticulitis GUno urinary retention, no urinary incontinence, no dysuria, no hematuria Musculoskeletalno joint pain, no muscle tenderness Skinno bruising, no rashes, no pruritus Neurono isolated weakness, no paresthesia, no weakness Psychno depression, no anxiety Physical Exam 2 Physical Exam: General-alert and oriented x3, no fever, no chills HEENT-head atraumatic and normocephalic, pupils equal and reactive to light, extraocular muscles intact Neck-no lymphadenopathy or thyromegaly, trachea midline Chest-tachypnea has resolved. Wheezing has also resolved. Diminished breath sounds persist on the right side. Cardiac- tachycardic rate and regular rhythm, normal S1 and S2 Abdomen-normal bowel sounds, no hepatosplenomegaly. Mild tenderness to palpation in the mid lower abdomen and left lower quadrant. No masses. No rebound or guarding Extremities-no cyanosis, clubbing, or edema Neuro-cranial nerves II through XII intact, motor and sensory function within normal limits, strength symmetrical, no focal deficits Psych-normal affect Results & Data Results & Data Vital Signs (Past 12 Hours) Vital Signs Temp Pulse Pulse Resp BP Pulse Ox O2 Del Method 09/21/24 09:05 Nasal Cannula 09/21/24 08:04 37.3 C 138 H 28 H 146/70 H 99 Oxymask 09/21/24 07:10 104 H 26 H 94 Oxymask 09/21/24 07:07 90 09/21/24 05:08 Oxymask 09/21/24 02:10 37.1 C 108 H 22 154/87 H 92 Nasal Cannula 09/21/24 00:06 130 H O2 Flow Rate 09/21/24 09:05 4 09/21/24 08:04 5 09/21/24 07:10 5 09/21/24 07:07 09/21/24 05:08 5 09/21/24 02:10 5 09/21/24 00:06 Laboratory Results 09/21/24 10:09 09/21/24 10:09 PG Care Time/CCT Total # of Minutes Spent Total Time Spent with Patient: Total time spent is greater than 50% in coordination of care (as documented) at patient's floor/unit and/or counseling patient: Coding Level of Care Code 11669 SUB INP/OBS CARE 50MIN Diagnoses Pneumothorax, right J93.9 Diverticulitis K57.92 Sinus tachycardia R00.0 Hypokalemia E87.6 Hypomagnesemia E83.42 Elevated troponin R79.89 Stage 4 very severe COPD by GOLD classification J44.9
--- NOTE | 2024-09-21 11:59 | XCELERA ---
[id number]
[2024-09-21] MEDS: POTASSIUM CHLORIDE / WTR 10 MEQ/100 ML PLCT IV SCH (12:22)
[2024-09-21] MEDS: POTASSIUM CHLORIDE CRTAB 20 MEQ TABCR PO SCH (13:35)
--- NOTE | 2024-09-21 16:50 | Surgery Progress Note ---
Date of Service September 21, 2024 Assessment & Plan (1) Diverticulitis: Plan: No urgent indication for surgical intervention, will continue to treat conservatively. Patient doing well this afternoon, WBC still slowly downtrending and she is afebrile. Will continue clears for now Continue to trend WBC and temps Continue medical management per primary team, surgery will continue to follow seems to be slowly improving. would stay on clears for now. poor surgical candidate. surgery only as last resort. Admission and Anticipated Discharge Date Admission Date: September 19, 2024 Subjective Patient seen this afternoon, states her abdominal pain is currently well controlled. Tolerating clears and states she wants solid food. Denies nausea or vomiting. Passing gas and having BMs WBC slightly downtrending to 13 today and patient afebrile Physical Exam Constitutional: WD/WN, vitals as above Respiratory: no respiratory distress and no labored breathing Right chest tube in place Cardiovascular: Rate/Rhythm: + tachycardic Gastrointestinal (Abdomen): Abdomen soft, nondistended, mild TTP in the LLQ without rebound or guarding. No signs of peritonitis Skin: no rashes, warm and dry Results & Data Vital Signs (Past 12 Hours) Vital Signs Temp Pulse Pulse Resp BP Pulse Ox O2 Del Method 09/21/24 16:41 102 H 09/21/24 16:03 37.0 C 93 H 16 131/79 95 Oxymask 09/21/24 12:48 96 H 20 90 Nasal Cannula 09/21/24 11:50 37.2 C 95 H 16 119/73 91 Nasal Cannula 09/21/24 09:05 Nasal Cannula 09/21/24 08:04 37.3 C 138 H 28 H 146/70 H 99 Oxymask 09/21/24 07:10 104 H 26 H 94 Oxymask 09/21/24 07:07 90 09/21/24 05:08 Oxymask O2 Flow Rate 09/21/24 16:41 09/21/24 16:03 3 09/21/24 12:48 4 09/21/24 11:50 4 09/21/24 09:05 4 09/21/24 08:04 5 09/21/24 07:10 5 09/21/24 07:07 09/21/24 05:08 5 PG Care Time/CCT Total # of Minutes Spent Total Time Spent with Patient: Total time spent is greater than 50% in coordination of care (as documented) at patient's floor/unit and/or counseling patient: Coding [place] [address] SUB INP/OBS CARE 06/03MIN Patient Type Established Medical Decision Making Straight Forward Diagnoses Diverticulitis K57.92
--- NOTE | 2024-09-21 17:19 | Electrocardiogram Report ---
Test Reason : Blood Pressure : */* mmHG Vent. Rate : 137 BPM Atrial Rate : 137 BPM P-R Int : 150 ms QRS Dur : 76 ms QT Int : 268 ms P-R-T Axes : 76 58 -7 degrees QTcB Int : 404 ms Sinus tachycardia Nonspecific ST and T wave abnormality Abnormal ECG When compared with ECG of 18-Sep-2024 22:03, No significant change was found Confirmed by Rigoberto Chowdhury ([id number]) on 09/21/2024 5:19:07 PM Referred By: REFERRED SELF Confirmed By: Rigoberto Chowdhury
[2024-09-21] MEDS: MELATONIN 3 MG TAB PO PRN (20:49)
[2024-09-22 06:16] LABS: Basophils # (auto) 0.02 K/uL (0.00-0.20); Basophils % (auto) 0.2 %; Eosinophils # (auto) 0.23 K/uL (0.00-0.50); Eosinophils % (auto) 1.8 %; Hemoglobin 9.9 g/dl (12.0-16.0); Immature Granulocytes # (auto) 0.07 K/uL (0.01-0.20); Immature Granulocytes % (auto) 0.5 %; Lymphocytes # (auto) 1.25 K/uL (1.20-3.40); Lymphocytes % (auto) 9.5 %; Mean Corpuscular Hemoglobin 29.7 pg (25.0-34.0); Mean Corpuscular Volume 90.1 fL (80.0-100.0); Mean Platelet Volume 9.3 fL (9.4-12.4); Monocytes # (auto) 1.05 K/uL (0.11-0.59); Neutrophils # (auto) 10.48 K/uL (1.40-6.50); Platelet Count 508 K/uL (130-400); RDW Coefficient of Variation 13.2 % (11.5-14.5); RDW Standard Deviation 43.8 fL (36.4-46.3); Red Blood Count 3.33 M/uL (4.20-5.40)
[2024-09-22 06:55] LABS: Calcium 8.3 mg/dl (8.6-10.3); Creatinine Clr Calc Pharmacy 65.2 ml/min; Potassium 3.3 mmol/L (3.5-5.1)
--- NOTE | 2024-09-22 07:46 | Pulmonology Progress Note ---
Date of Service September 22, 2024 Assessment & Plan (1) Pneumothorax, right: (2) Pulmonary cachexia due to COPD: (3) Stage 4 very severe COPD by GOLD classification: (4) Bronchopleural fistula: Plan Impression: 63-year-old female with advanced COPD (last FEV1 33% predicted with a DLCO of 25% predicted) admitted with diverticulitis. She developed spontaneous secondary pneumothorax requiring chest tube placement. She has evidence of ongoing air leak consistent with bronchopleural fistula. It appears improved with increasing suction to 40 cm of water but remains persistent Recommendations: 1. Bronchopleural fistula: Continue suction on the chest tube 40 cm of water. Given the clinical and radiographic improvement, would continue current conservative measures at this point in time. Moving forward, may consider placement of a second chest tube if the pneumothorax were to increase. Alternatively, could try to decrease suction in the event to allow the pleural rent to close. Management will be dictated based on clinical course. The patient is a poor surgical candidate and typically surgical intervention is only considered if the patient fails 7 to 10 days of conservative management. Consideration for endobronchial therapy could be appropriate although that would require transfer to a tertiary facility and again would only be considered if she fails conservative management for a week. Healing may be compromised by the patient's poor nutritional status. Try to avoid positive airway pressure or coughing at this point in time. 2. COPD: Not bronchospastic currently. No indication for steroids. Bronchodilators as needed. 3. Hypoxemia: Chronic. Continue oxygen titrated to keep saturations around 90%. Patient's overall prognosis is guarded. Engaging palliative care might be appropriate Admission and Anticipated Discharge Date Admission Date: September 19, 2024 Subjective Patient seen and examined. EMR reviewed. She states she is doing okay. Her breathing is actually better. She continues to have some left lower quadrant abdominal pain. She is not really coughing or expectorating phlegm. She denies any increasing shortness of breath. Review of Systems 2 Review of Systems: All systems reviewed & are unremarkable except as noted in Subjective Physical Exam 2 Constitutional: + cachectic and + frail appearing Neck: trachea midline, no thyromegaly Respiratory: no respiratory distress, no labored breathing, no cough and not tachypneic Auscultation: + diminished lung sounds; no crackles and no wheezes Cardiovascular: RRR, no murmur, no edema Chest (Breasts): Additional Comments: Chest tube with persistent 1+ continuous airleak Gastrointestinal (Abdomen): normal bowel sounds, soft, nontender, no hepatosplenomegaly Musculoskeletal: Extremities: extremities normal to inspection Skin: no rashes, warm and dry Lymphatic: no cervical lymphadenopathy Results & Data Results & Data Vital Signs (Past 12 Hours) Vital Signs Temp Pulse Pulse Resp BP Pulse Ox O2 Del Method 09/22/24 07:24 74 18 97 Nasal Cannula 09/22/24 07:14 81 09/22/24 02:18 36.8 C 88 18 130/81 90 Nasal Cannula 09/21/24 23:19 86 09/21/24 22:00 37.2 C 88 18 104/65 94 Nasal Cannula 09/21/24 21:33 Nasal Cannula 09/21/24 20:02 37.3 C 92 H 18 133/91 95 Nebulizer O2 Flow Rate 09/22/24 07:24 3 09/22/24 07:14 09/22/24 02:18 2.5 09/21/24 23:19 09/21/24 22:00 3 09/21/24 21:33 4 09/21/24 20:02 Laboratory Results 09/22/24 05:34 09/22/24 05:34 Diagnostic Findings Chest x-ray from today was independently reviewed and compared to yesterday's chest x-ray. The apical component of the pneumothorax appears decreased. There is a continuous lateral component present but this appears stable to slightly decreased in size. Overall suggest improvement CT of the chest from yesterday was independently reviewed. The chest tubes in good position. There are severe centrilobular and paraseptal emphysematous changes identified. No obvious pleural disruption identified although limited study. Persistent pneumothorax noted PG Care Time/CCT Total # of Minutes Spent Total Time Spent with Patient: Total time spent is greater than 50% in coordination of care (as documented) at patient's floor/unit and/or counseling patient: Coding Level of Care Code 08956 SUB INP/OBS CARE 2/35MIN Diagnoses Pneumothorax, right J93.9 Pulmonary cachexia due to COPD R64; J44.9 Stage 4 very severe COPD by GOLD classification J44.9 Bronchopleural fistula J86.0
--- NOTE | 2024-09-22 08:04 | XRay Report ---
EXAM: XR chest 1V portable CLINICAL HISTORY: chest tube TECHNIQUE: Radiograph of chest was acquired. 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 Mild to moderate right pneumothorax. Minimal right pleural effusion/pleural thickening. Fibrotic and atelectatic bands in bilateral mid and lower zones. The cardiomediastinal silhouette is within normal limits. No acute osseous abnormality. IMPRESSION: 1. Right side chest tube/pitail catheter seen.Mild to moderate right pneumothorax- Stable. 2. Minimal right pleural effusion/pleural thickening. New finding. 3. Fibrotic and atelectatic bands in bilateral mid and lower zones- Stable. Electronically signed by Ludwig Pickens 09-22-2024 08:04 AM
--- NOTE | 2024-09-22 10:00 | Surgery Progress Note ---
Date of Service September 22, 2024 Assessment & Plan (1) Diverticulitis of intestine with abscess: Plan: pt doing well no n/v or worsening abdominal pain WBC 13 (13) We will allow her to try full liquids today Continue IV abx No urgent indication for surgical intervention, will continue to treat conservatively. Continue medical management per primary team, surgery will continue to follow [facility] surgery for the wknd Admission and Anticipated Discharge Date Admission Date: September 19, 2024 Subjective patient feeling okay. tolerating clears without any worsening abdominal pain, n/v. Physical Exam Physical Exam: awake, no distres Results & Data Vital Signs (Past 12 Hours) Vital Signs Temp Pulse Pulse Resp BP Pulse Ox O2 Del Method 09/22/24 09:24 98.2 F 97 H 19 131/83 92 Nasal Cannula 09/22/24 08:35 Nasal Cannula 09/22/24 07:24 74 18 97 Nasal Cannula 09/22/24 07:14 81 09/22/24 02:18 98.2 F 88 18 130/81 90 Nasal Cannula 09/21/24 23:19 86 09/21/24 22:00 99.0 F 88 18 104/65 94 Nasal Cannula O2 Flow Rate 09/22/24 09:24 3 09/22/24 08:35 4 09/22/24 07:24 3 09/22/24 07:14 09/22/24 02:18 2.5 09/21/24 23:19 09/21/24 22:00 3 PG Care Time/CCT Total # of Minutes Spent Total Time Spent with Patient: Total time spent is greater than 50% in coordination of care (as documented) at patient's floor/unit and/or counseling patient: Coding Level of Care Code 32082 SUB INP/OBS CARE 06/03MIN Diagnoses Diverticulitis of intestine with abscess K57.80 Diverticulitis bleeding: unspecified bleeding status Diverticulitis site: unspecified part of intestinal tract (1) Diverticulitis of intestine with abscess Diverticulitis bleeding: unspecified bleeding status Diverticulitis site: unspecified part of intestinal tract Qualified Code(s): K57.80 - Diverticulitis of intestine, part unspecified, with perforation and abscess without bleeding
[2024-09-22] MEDS: POTASSIUM CHLORIDE / WTR 10 MEQ/100 ML PLCT IV SCH (10:12)
--- NOTE | 2024-09-22 12:07 | Hospitalist Progress Note ---
Date of Service September 22, 2024 Assessment & Plan (1) Pneumothorax, right: Plan: Pulmonary medicine consultation and recommendations appreciated. She now has a pigtail catheter on the right side. 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 Hopefully this will heal and the right lung will reexpand without operative intervention (2) Diverticulitis: Plan: Recurrent sigmoid diverticulitis present on admission.. Appreciate general surgery consultation and recommendations. Improving with Zosyn, day 4. There does not appear to be any indication for immediate surgery. She has been advanced to a full liquid diet. Serial labs. Supportive care (3) Sinus tachycardia: Plan: Now resolved with diltiazem. Thyroid profile reveals normal free T4 level with slightly low free T3 level. Fortunately, she is not thyrotoxic. Telemetry (4) Hypokalemia: Plan: Initially corrected with replacement therapy but hypokalemic again. Oral potassium dosing has been uptitrated and she is also receiving parenteral replacement. Serial labs (5) Hypomagnesemia: Plan: Corrected with replacement therapy. Present on admission. Serial labs (6) Elevated troponin: Plan: Minimal. No chest pain. No acute EKG changes. No evidence of acute coronary syndrome (7) Stage 4 very severe COPD by GOLD classification: Plan: Currently stable. Continue current medical management. Plan To be determined. Admission and Anticipated Discharge Date Admission Date: September 19, 2024 Subjective Alert and oriented. No new problems. Heart rate is now well-controlled after addition of diltiazem. Potassium improved to 3.3. Continue oral and parenteral replacement and serial labs. I spoke to her daughter, Heidi, again by phone today, September 22. Review of Systems 2 Review of Systems: Constitutionalno fever or chills ENTno blurred vision, no double vision, no epistaxis, no sore throat Respiratoryno cough, no wheezing. No shortness of breath at rest. Overall, her respiratory status is improved Cardiacno palpitations, no chest pain, no syncope Paz nausea, vomiting, diarrhea, melena, hematochezia. She does have some abdominal pain from the underlying diverticulitis GUno urinary retention, no urinary incontinence, no dysuria, no hematuria Musculoskeletalno joint pain, no muscle tenderness Skinno bruising, no rashes, no pruritus Neurono isolated weakness, no paresthesia, no weakness Psychno depression, no anxiety Physical Exam 2 Physical Exam: General-alert and oriented x3, no fever, no chills HEENT-head atraumatic and normocephalic, pupils equal and reactive to light, extraocular muscles intact Neck-no lymphadenopathy or thyromegaly, trachea midline Chest-tachypnea has resolved. Wheezing has also resolved. Diminished breath sounds bilaterally due to underlying COPD . Cardiac-regular rate and rhythm. Normal S1 and S2 Abdomen-normal bowel sounds, no hepatosplenomegaly. Mild tenderness to palpation in the mid lower abdomen and left lower quadrant. No masses. No rebound or guarding Extremities-no cyanosis, clubbing, or edema Neuro-cranial nerves II through XII intact, motor and sensory function within normal limits, strength symmetrical, no focal deficits Psych-normal affect Results & Data Results & Data Vital Signs (Past 12 Hours) Vital Signs Temp Pulse Pulse Resp BP Pulse Ox O2 Del Method 09/22/24 10:32 36.9 C 96 H 18 107/67 94 Nasal Cannula 09/22/24 09:24 36.8 C 97 H 19 131/83 92 Nasal Cannula 09/22/24 08:35 Nasal Cannula 09/22/24 07:24 74 18 97 Nasal Cannula 09/22/24 07:14 81 09/22/24 02:18 36.8 C 88 18 130/81 90 Nasal Cannula O2 Flow Rate 09/22/24 10:32 4 09/22/24 09:24 3 09/22/24 08:35 4 09/22/24 07:24 3 09/22/24 07:14 09/22/24 02:18 2.5 Laboratory Results 09/22/24 05:34 09/22/24 05:34 PG Care Time/CCT Total # of Minutes Spent Total Time Spent with Patient: Total time spent is greater than 50% in coordination of care (as documented) at patient's floor/unit and/or counseling patient: Coding Level of Care Code 04750 SUB INP/OBS CARE 3/50MIN Diagnoses Pneumothorax, right J93.9 Diverticulitis K57.92 Sinus tachycardia R00.0 Hypokalemia E87.6 Hypomagnesemia E83.42 Elevated troponin R79.89 Stage 4 very severe COPD by GOLD classification J44.9
[2024-09-23 06:50] LABS: Basophils % (auto) 0.1 %; Eosinophils # (auto) 0.41 K/uL (0.00-0.50); Eosinophils % (auto) 2.8 %; Hematocrit (blood only) 30.1 % (37.0-47.0); Immature Granulocytes % (auto) 0.5 %; Lymphocytes # (auto) 1.22 K/uL (1.20-3.40); Lymphocytes % (auto) 8.4 %; Mean Corpuscular Hemoglobin 29.4 pg (25.0-34.0); Mean Corpuscular Hgb Conc 33.2 g/dL (32.0-36.0); Mean Corpuscular Volume 88.5 fL (80.0-100.0); Mean Platelet Volume 9.1 fL (9.4-12.4); Monocytes # (auto) 0.74 K/uL (0.11-0.59); Monocytes % (auto) 5.1 %; Neutrophils # (auto) 12.01 K/uL (1.40-6.50); Neutrophils % (auto) 83.1 %; Platelet Count 563 K/uL (130-400); RDW Standard Deviation 42.3 fL (36.4-46.3); White Blood Count 14.47 K/ul (4.8-10.8)
[2024-09-23 06:51] LABS: Basophils # (auto) 0.02 K/uL (0.00-0.20); Immature Granulocytes # (auto) 0.07 K/uL (0.01-0.20)
[2024-09-23 07:20] LABS: BUN Creatinine Ratio 11.1 (10-20); Calcium 8.5 mg/dl (8.6-10.3); Creatinine Clr Calc Pharmacy 68.2 ml/min; Potassium 3.8 mmol/L (3.5-5.1)
--- NOTE | 2024-09-23 07:37 | Pulmonology Progress Note ---
Date of Service September 23, 2024 Assessment & Plan (1) Pneumothorax, right: (2) Pulmonary cachexia due to COPD: (3) Stage 4 very severe COPD by GOLD classification: (4) Bronchopleural fistula: Plan Impression: 63-year-old female with advanced COPD (last FEV1 33% predicted with a DLCO of 25% predicted) admitted with diverticulitis. She developed spontaneous secondary pneumothorax requiring chest tube placement. She has evidence of ongoing air leak consistent with bronchopleural fistula. She is a poor surgical candidate currently. Recommendations: 1. Bronchopleural fistula: Continue suction on the chest tube 40 cm of water. Given the clinical and radiographic improvement, would continue current conservative measures at this point in time. Moving forward, may consider placement of a second chest tube if the pneumothorax were to increase. Alternatively, could try to decrease suction in the event to allow the pleural rent to close. Management will be dictated based on clinical course. The patient is a poor surgical candidate and typically surgical intervention is only considered if the patient fails 7 to 10 days of conservative management. Consideration for endobronchial therapy could be appropriate although that would require transfer to a tertiary facility and again would only be considered if she fails conservative management for a week. Healing may be compromised by the patient's poor nutritional status. Try to avoid positive airway pressure or coughing at this point in time. Continue daily chest x-ray and if she fails to resolve after 7 days of conservative therapy, may consider discussion with the tertiary referral center. 2. COPD: Not bronchospastic currently. No indication for steroids. Bronchodilators as needed. 3. Hypoxemia: Chronic. Continue oxygen titrated to keep saturations around 90%. Patient's overall prognosis is guarded. Engaging palliative care might be appropriate Admission and Anticipated Discharge Date Admission Date: September 19, 2024 Subjective Patient seen and examined. EMR reviewed. Patient reports that she is doing okay. She continues to have some left lower quadrant abdominal pain but no respiratory issues. No pain at the chest tube site. Her breathing is fine. She is not coughing or expectorating phlegm. No wheezing or significant shortness of breath. Review of Systems 2 Review of Systems: All systems reviewed & are unremarkable except as noted in Subjective Physical Exam 2 Constitutional: + cachectic and + frail appearing Neck: trachea midline, no thyromegaly No crepitus Respiratory: no respiratory distress, no labored breathing, no cough and not tachypneic Auscultation: + diminished lung sounds; no crackles and no wheezes Cardiovascular: RRR, no murmur, no edema Chest (Breasts): Additional Comments: 1-2+ air leak noted Gastrointestinal (Abdomen): normal bowel sounds, soft, nontender, no hepatosplenomegaly Musculoskeletal: Extremities: extremities normal to inspection Skin: no rashes, warm and dry Lymphatic: no cervical lymphadenopathy Results & Data Results & Data Vital Signs (Past 12 Hours) Vital Signs Temp Pulse Pulse Resp BP Pulse Ox O2 Del Method 09/23/24 07:12 94 H 09/23/24 07:11 99 H 17 92 Nasal Cannula 09/23/24 03:38 36.6 C 87 18 104/56 L 93 Nasal Cannula 09/22/24 23:14 36.9 C 91 H 18 100/63 96 Nasal Cannula 09/22/24 23:00 86 09/22/24 20:29 Nasal Cannula 09/22/24 19:52 18 91 Nasal Cannula O2 Flow Rate 09/23/24 07:12 09/23/24 07:11 3 09/23/24 03:38 4 09/22/24 23:14 4 09/22/24 23:00 09/22/24 20:29 4 09/22/24 19:52 3 Laboratory Results 09/23/24 06:32 09/23/24 06:32 Diagnostic Findings Chest x-ray from today was independently reviewed and compared to prior films. Chest tube remains in good position. There is a basilar component and lateral component of pneumothorax however the apical component appears better. PG Care Time/CCT Total # of Minutes Spent Total Time Spent with Patient: Total time spent is greater than 50% in coordination of care (as documented) at patient's floor/unit and/or counseling patient: Coding Level of Care Code 04529 SUB INP/OBS CARE 2/35MIN Diagnoses Pneumothorax, right J93.9 Pulmonary cachexia due to COPD R64; J44.9 Stage 4 very severe COPD by GOLD classification J44.9 Bronchopleural fistula J86.0
--- NOTE | 2024-09-23 09:05 | XRay Report ---
EXAM: XR chest 1V portable CLINICAL HISTORY: chest tube TECHNIQUE: Radiograph of chest was acquired. COMPARISON: 09/22/2024 FINDINGS: Right side chest tube/pitail catheter seen. Moderate right pneumothorax. No evidence of pleural effusion on either side. Bilateral hyperinflated lung payan with changes of emphysema in both lungs. Fibrotic and atelectatic bands in bilateral mid and lower zones. The cardiomediastinal silhouette is within normal limits. No acute osseous abnormality. IMPRESSION: 1. Right side chest tube/pitail catheter seen.Moderate right pneumothorax- Stable. 2. No pleural effusion at present study. 3. Fibrotic and atelectatic bands in bilateral mid and lower zones- Stable. 4. Changes of chronic obstructive pulmonary disease in form of emphysema in bilateral lung payan. Stable finding. Electronically signed by Ludwig Pickens 09-23-2024 09:05 AM
--- NOTE | 2024-09-23 11:53 | Hospitalist Progress Note ---
Date of Service September 23, 2024 Assessment & Plan (1) Pneumothorax, right: Plan: Pulmonary medicine consultation and recommendations appreciated. She now has a pigtail catheter on the right side. 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 Hopefully this will heal and the right lung will reexpand without operative intervention (2) Diverticulitis: Plan: Recurrent sigmoid diverticulitis present on admission.. Appreciate general surgery consultation and recommendations. Improving with Zosyn, day 5. There does not appear to be any indication for immediate surgery. She has been advanced to a full liquid diet and is tolerating this quite well so far. Serial labs. Supportive care (3) Sinus tachycardia: Plan: Now resolved with diltiazem. Thyroid profile reveals normal free T4 level with slightly low free T3 level. Fortunately, she is not thyrotoxic. Telemetry (4) Hypokalemia: Plan: Corrected to 3.8 today, September 23. She remains on oral replacement therapy. She received parenteral replacement earlier this admission. Serial labs (5) Hypomagnesemia: Plan: Corrected with replacement therapy. Present on admission. Serial labs (6) Elevated troponin: Plan: Minimal. No chest pain. No acute EKG changes. No evidence of acute coronary syndrome (7) Stage 4 very severe COPD by GOLD classification: Plan: Currently stable. Continue current medical management. (8) COPD (chronic obstructive pulmonary disease): Plan: With chronic respiratory failure. She uses 4 L of oxygen at rest and 6 L with any activity. She sees pulmonology as an outpatient. Plan To be determined. Admission and Anticipated Discharge Date Admission Date: September 19, 2024 Subjective The patient is resting comfortably. No new problems. Chest x-ray done today, September 23, looks better to my eye. Pulmonary medicine is following regarding the spontaneous right apical pneumothorax and subsequent placement of pigtail catheter. Potassium has been corrected to 3.8. She remains on intravenous Zosyn, day 5 for the recurrent diverticulitis. She is tolerating a full liquid diet. Review of Systems 2 Review of Systems: Constitutionalno fever or chills ENTno blurred vision, no double vision, no epistaxis, no sore throat Respiratoryno cough, no wheezing. No shortness of breath at rest. Overall, her respiratory status is improved Cardiacno palpitations, no chest pain, no syncope Paz nausea, vomiting, diarrhea, melena, hematochezia. She does have some abdominal pain from the underlying diverticulitis GUno urinary retention, no urinary incontinence, no dysuria, no hematuria Musculoskeletalno joint pain, no muscle tenderness Skinno bruising, no rashes, no pruritus Neurono isolated weakness, no paresthesia, no weakness Psychno depression, no anxiety Physical Exam 2 Physical Exam: General-alert and oriented x3, no fever, no chills HEENT-head atraumatic and normocephalic, pupils equal and reactive to light, extraocular muscles intact Neck-no lymphadenopathy or thyromegaly, trachea midline Chest-tachypnea has resolved. Wheezing has also resolved. Diminished breath sounds bilaterally due to underlying COPD . Cardiac-regular rate and rhythm. Normal S1 and S2 Abdomen-normal bowel sounds, no hepatosplenomegaly. Mild tenderness to palpation in the mid lower abdomen and left lower quadrant. No masses. No rebound or guarding Extremities-no cyanosis, clubbing, or edema Neuro-cranial nerves II through XII intact, motor and sensory function within normal limits, strength symmetrical, no focal deficits Psych-normal affect Results & Data Results & Data Vital Signs (Past 12 Hours) Vital Signs Temp Pulse Pulse Resp BP Pulse Ox O2 Del Method 09/23/24 08:12 Nasal Cannula 09/23/24 07:37 36.9 C 107 H 18 129/73 94 Nasal Cannula 09/23/24 07:12 94 H 09/23/24 07:11 99 H 17 92 Nasal Cannula 09/23/24 03:38 36.6 C 87 18 104/56 L 93 Nasal Cannula O2 Flow Rate 09/23/24 08:12 4 09/23/24 07:37 3 09/23/24 07:12 09/23/24 07:11 3 09/23/24 03:38 4 Laboratory Results 09/23/24 06:32 09/23/24 06:32 PG Care Time/CCT Total # of Minutes Spent Total Time Spent with Patient: Total time spent is greater than 50% in coordination of care (as documented) at patient's floor/unit and/or counseling patient: Coding Level of Care Code 93988 SUB INP/OBS CARE 2/35MIN Diagnoses Pneumothorax, right J93.9 Diverticulitis K57.92 Sinus tachycardia R00.0 Hypokalemia E87.6 Hypomagnesemia E83.42 Elevated troponin R79.89 Stage 4 very severe COPD by GOLD classification J44.9 COPD (chronic obstructive pulmonary disease) J44.9
--- NOTE | 2024-09-23 12:02 | Surgery Progress Note ---
Date of Service September 23, 2024 Assessment & Plan (1) Diverticulitis of intestine with abscess: Plan: pt doing well no n/v or worsening abdominal pain WBC 13 (13) continue full liquids Continue IV abx No urgent indication for surgical intervention, will continue to treat conservatively. Continue medical management per primary team, surgery will continue to follow very poor surgical candidate Admission and Anticipated Discharge Date Admission Date: September 19, 2024 Subjective Doing fairly well this morning. Still with some pain in the abdomen, slowly improving. No fevers or chills. No nausea or vomiting. Physical Exam Physical Exam: awake, no distress Abdomen soft, mild TTP in LLQ Results & Data Vital Signs (Past 12 Hours) Vital Signs Temp Pulse Pulse Resp BP Pulse Ox O2 Del Method 09/23/24 11:51 36.8 C 97 H 16 111/71 96 Nasal Cannula 09/23/24 08:12 Nasal Cannula 09/23/24 07:37 36.9 C 107 H 18 129/73 94 Nasal Cannula 09/23/24 07:12 94 H 09/23/24 07:11 99 H 17 92 Nasal Cannula 09/23/24 03:38 36.6 C 87 18 104/56 L 93 Nasal Cannula O2 Flow Rate 09/23/24 11:51 2 09/23/24 08:12 4 09/23/24 07:37 3 09/23/24 07:12 09/23/24 07:11 3 09/23/24 03:38 4 Laboratory Results 09/23/24 Range/Units 06:32 WBC 14.47 H (4.8-10.8) K/ul RBC 3.40 L (4.20-5.40) M/uL Hgb 10.0 L (12.0-16.0) g/dl Hct 30.1 L (37.0-47.0) % MCV 88.5 (80.0-100.0) fL MCH 29.4 (25.0-34.0) pg MCHC 33.2 (32.0-36.0) g/dL RDW Std Deviation 42.3 (36.4-46.3) fL RDW Coeff of Luis 13.0 (11.5-14.5) % Plt Count 563 H (130-400) K/uL MPV 9.1 L (9.4-12.4) fL Immature Gran % (Auto) 0.5 % Neut % (Auto) 83.1 % Lymph % (Auto) 8.4 % [place] % (Auto) 5.1 % Eos % (Auto) 2.8 % Baso % (Auto) 0.1 % Neut # (Auto) 12.01 H (1.40-6.50) K/uL Lymph # (Auto) 1.22 (1.20-3.40) K/uL [place] # (Auto) 0.74 H (0.11-0.59) K/uL Eos # (Auto) 0.41 (0.00-0.50) K/uL Baso # (Auto) 0.02 (0.00-0.20) K/uL Immature Gran # (Auto) 0.07 (0.01-0.20) K/uL Sodium 140 (136-145) mmol/L Potassium 3.8 (3.5-5.1) mmol/L Chloride 104 (98-107) mmol/L Carbon Dioxide 28 (21-32) mmol/L Anion Gap 8 (3-11) BUN 6 (6-23) mg/dl Creatinine 0.54 L (0.6-1.2) mg/dl Est Cr Clr Drug Dosing 68.2 ml/min eGFR 102.11 BUN/Creatinine Ratio 11.1 (10-20) Glucose 97 (70-99(Fasting)) mg/dl Calcium 8.5 L (8.6-10.3) mg/dl (1) Diverticulitis of intestine with abscess Diverticulitis bleeding: unspecified bleeding status Diverticulitis site: unspecified part of intestinal tract Qualified Code(s): K57.80 - Diverticulitis of intestine, part unspecified, with perforation and abscess without bleeding
[2024-09-24 06:52] LABS: Basophils # (auto) 0.02 K/uL (0.00-0.20); Basophils % (auto) 0.1 %; Eosinophils # (auto) 0.44 K/uL (0.00-0.50); Eosinophils % (auto) 2.9 %; Hematocrit (blood only) 29.7 % (37.0-47.0); Hemoglobin 9.8 g/dl (12.0-16.0); Immature Granulocytes # (auto) 0.08 K/uL (0.01-0.20); Immature Granulocytes % (auto) 0.5 %; Lymphocytes # (auto) 1.27 K/uL (1.20-3.40); Lymphocytes % (auto) 8.3 %; Mean Corpuscular Hemoglobin 29.4 pg (25.0-34.0); Mean Corpuscular Volume 89.2 fL (80.0-100.0); Mean Platelet Volume 9.1 fL (9.4-12.4); Monocytes # (auto) 0.84 K/uL (0.11-0.59); Monocytes % (auto) 5.5 %; Neutrophils # (auto) 12.71 K/uL (1.40-6.50); Neutrophils % (auto) 82.7 %; Platelet Count 620 K/uL (130-400); RDW Coefficient of Variation 13.4 % (11.5-14.5); RDW Standard Deviation 43.5 fL (36.4-46.3); Red Blood Count 3.33 M/uL (4.20-5.40); White Blood Count 15.36 K/ul (4.8-10.8)
[2024-09-24 08:21] LABS: BUN Creatinine Ratio 12.3 (10-20); Calcium 8.5 mg/dl (8.6-10.3); Creatinine Clr Calc Pharmacy 64.5 ml/min; Potassium 3.8 mmol/L (3.5-5.1)
--- NOTE | 2024-09-24 08:22 | XRay Report ---
XR chest 1V portable HISTORY: 63 years-old Female ptx acute shortness of breath COMPARISON: Chest radiograph 09/24/2019 6:55 AM TECHNIQUE: AP view of the chest FINDINGS: Right-sided pleural catheter is again noted coiled at the right lung apex. Right apical pneumothorax is again noted with separation of approximately 1.3 cm previously 9 mm. Emphysema with chronic fibrot ic changes. Layering right basilar pleural effusion with mild bibasilar densities, stable from prior. The bones appear grossly intact. IMPRESSION: 1. No change position of the right-sided pleural catheter. 2. Right-sided hydropneumothorax redemonstrated, slightly increased in size from yesterday's exam. 3. Severe pulmonary emphysema. ACT 112: Negative or not required by law. The above report was generated using voice recognition software. It may contain grammatical, syntax o r spelling errors. Electronically signed by: Maciej Dumas M.D. 09/24/2024 8:21 AM
--- NOTE | 2024-09-24 08:28 | Pulmonology Progress Note ---
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 She developed spontaneous secondary pneumothorax requiring chest tube placement. She has evidence of ongoing air leak consistent with bronchopleural fistula. She is a poor surgical candidate currently. Recommendations: 1. Bronchopleural fistula: Continue conservative measures. Decrease chest tube suction to 20 cm of water to try and decrease egress through the pleural rent. Management will be dictated based on clinical course. The patient is a poor surgical candidate and typically surgical intervention is only considered if the patient fails 7 to 10 days of conservative management. Consideration for endobronchial therapy could be appropriate although that would require transfer to a tertiary facility and again would only be considered if she fails conservative management for a week. Healing may be compromised by the patient's poor nutritional status. Try to avoid positive airway pressure or coughing at this point in time. Continue daily chest x-ray and if she fails to resolve after 7 days of conservative therapy, may consider discussion with the tertiary referral center. 2. COPD: Not bronchospastic currently. No indication for steroids. Bronchodilators as needed. 3. Hypoxemia: Chronic. Continue oxygen titrated to keep saturations around 90%. Patient's overall prognosis is guarded. Engaging palliative care might be appropriate Admission and Anticipated Discharge Date Admission Date: September 19, 2024 Subjective Patient seen and examined. EMR reviewed. She reports she is doing well from a respiratory standpoint. No shortness of breath. No pain at the chest tube site. No coughing, wheezing, or respiratory compromise. Review of Systems 2 Review of Systems: All systems reviewed & are unremarkable except as noted in Subjective Physical Exam 2 Constitutional: + cachectic and + frail appearing Neck: trachea midline, no thyromegaly Respiratory: no respiratory distress, no labored breathing, no cough and not tachypneic Auscultation: + diminished lung sounds; no crackles and no wheezes Cardiovascular: RRR, no murmur, no edema Gastrointestinal (Abdomen): normal bowel sounds, soft, nontender, no hepatosplenomegaly Musculoskeletal: Extremities: extremities normal to inspection Skin: no rashes, warm and dry Lymphatic: no cervical lymphadenopathy Results & Data Results & Data Vital Signs (Past 12 Hours) Vital Signs Temp Pulse Pulse Resp BP Pulse Ox O2 Del Method 09/24/24 07:41 91 H 15 90 Nasal Cannula 09/24/24 07:32 36.7 C 99 H 16 127/78 95 Nasal Cannula 09/24/24 07:17 91 H 09/24/24 03:31 37 C 89 18 125/67 96 Nasal Cannula 09/23/24 23:27 37.2 C 98 H 18 144/81 H 94 Room Air 09/23/24 22:01 103 H O2 Flow Rate 09/24/24 07:41 09/24/24 07:32 2 09/24/24 07:17 09/24/24 03:31 4 09/23/24 23:27 09/23/24 22:01 Laboratory Results 09/24/24 06:10 09/24/24 06:10 Diagnostic Findings Chest x-ray from today pending PG Care Time/CCT Total # of Minutes Spent Total Time Spent with Patient: Total time spent is greater than 50% in coordination of care (as documented) at patient's floor/unit and/or counseling patient: Coding Level of Care Code 53827 SUB INP/OBS CARE 2/35MIN Diagnoses Pneumothorax, right J93.9 Pulmonary cachexia due to COPD R64; J44.9 Stage 4 very severe COPD by GOLD classification J44.9 Bronchopleural fistula J86.0
--- NOTE | 2024-09-24 10:25 | Surgery Progress Note ---
Date of Service September 24, 2024 Assessment & Plan (1) Diverticulitis of intestine with abscess: Plan: pt doing well no n/v or worsening abdominal pain WBC 13 (13) continue full liquids Continue IV abx No urgent indication for surgical intervention, will continue to treat conservatively. Continue medical management per primary team, surgery will continue to follow very poor surgical candidate Admission and Anticipated Discharge Date Admission Date: September 19, 2024 Subjective doing fairly well, still some pain. positive BMs; no nausea/vomiting Physical Exam Physical Exam: awake, no distress Abdomen soft, mild TTP in LLQ Results & Data Vital Signs (Past 12 Hours) Vital Signs Temp Pulse Pulse Resp BP Pulse Ox O2 Del Method 09/24/24 09:50 Nasal Cannula 09/24/24 07:41 91 H 15 90 Nasal Cannula 09/24/24 07:32 36.7 C 99 H 16 127/78 95 Nasal Cannula 09/24/24 07:17 91 H 09/24/24 03:31 37 C 89 18 125/67 96 Nasal Cannula 09/23/24 23:27 37.2 C 98 H 18 144/81 H 94 Room Air O2 Flow Rate 09/24/24 09:50 4 09/24/24 07:41 09/24/24 07:32 2 09/24/24 07:17 09/24/24 03:31 4 09/23/24 23:27 (1) Diverticulitis of intestine with abscess Diverticulitis bleeding: unspecified bleeding status Diverticulitis site: unspecified part of intestinal tract Qualified Code(s): K57.80 - Diverticulitis of intestine, part unspecified, with perforation and abscess without bleeding
[2024-09-24] MEDS: dilTIAZem HCl 60 MG TAB PO SCH (12:42)
[2024-09-24] MEDS: PSYLLIUM HUSK 4GM PACKET PO SCH (14:22)
--- NOTE | 2024-09-24 14:57 | Hospitalist Progress Note ---
Date of Service September 24, 2024 Assessment & Plan (1) Pneumothorax, right: Plan: Pulmonary medicine consultation and recommendations appreciated. She now has a pigtail catheter on the right side. 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 Hopefully this will heal and the right lung will reexpand without operative intervention. Suction was decreased to 20 cm of water today, September 24 (2) Diverticulitis: Plan: Recurrent sigmoid diverticulitis present on admission.. Appreciate general surgery consultation and recommendations. Improving with Zosyn, day 6. There does not appear to be any indication for immediate surgery. She has been advanced to a full liquid diet and is tolerating this quite well so far. However, she does have some loose stools. Metamucil has been added to add bulk. Serial labs. Supportive care (3) Sinus tachycardia: Plan: Heart rate is again mildly tachycardiac. Diltiazem uptitrated from 3 times a day dosing to 4 times a day. Thyroid profile reveals normal free T4 level with slightly low free T3 level. Fortunately, she is not thyrotoxic. Telemetry (4) Hypokalemia: Plan: Corrected. She remains on oral replacement therapy. She received parenteral replacement earlier this admission. Serial labs (5) Hypomagnesemia: Plan: Corrected with replacement therapy. Present on admission. Serial labs (6) Elevated troponin: Plan: Minimal. No chest pain. No acute EKG changes. No evidence of acute coronary syndrome (7) COPD (chronic obstructive pulmonary disease): Plan: With chronic respiratory failure. She uses 4 L of oxygen at rest and 6 L with any activity. She sees pulmonology as an outpatient. Plan To be determined. Admission and Anticipated Discharge Date Admission Date: September 19, 2024 Subjective No significant change in clinical status. Heart rate is mildly tachycardic and diltiazem uptitrated from 3 times a day dosing to 4 times a day dosing. Chest x-ray done today continues to show evidence of right apical pneumothorax. Appreciate pulmonary medicine consultation recommendations. Suction to the right apical pigtail catheter was decreased to 20 cm of water today, September 24. She remains on intravenous Zosyn, day 6, for the diverticulitis. Metamucil was added to help control with loose stools related to the diverticulitis and antibiotic therapy. Review of Systems 2 Review of Systems: Constitutionalno fever or chills ENTno blurred vision, no double vision, no epistaxis, no sore throat Respiratoryno cough, no wheezing. No shortness of breath at rest. Overall, her respiratory status is improved Cardiacno palpitations, no chest pain, no syncope Paz nausea, vomiting, diarrhea, melena, hematochezia. She does have some abdominal pain from the underlying diverticulitis GUno urinary retention, no urinary incontinence, no dysuria, no hematuria Musculoskeletalno joint pain, no muscle tenderness Skinno bruising, no rashes, no pruritus Neurono isolated weakness, no paresthesia, no weakness Psychno depression, no anxiety Physical Exam 2 Physical Exam: General-alert and oriented x3, no fever, no chills HEENT-head atraumatic and normocephalic, pupils equal and reactive to light, extraocular muscles intact Neck-no lymphadenopathy or thyromegaly, trachea midline Chest-tachypnea has resolved. Wheezing has also resolved. Diminished breath sounds bilaterally due to underlying COPD . Cardiac-mildly tachycardic rate with regular rhythm. Normal S1 and S2 Abdomen-normal bowel sounds, no hepatosplenomegaly. Mild tenderness to palpation in the mid lower abdomen and left lower quadrant. No masses. No rebound or guarding Extremities-no cyanosis, clubbing, or edema Neuro-cranial nerves II through XII intact, motor and sensory function within normal limits, strength symmetrical, no focal deficits Psych-normal affect Results & Data Results & Data Vital Signs (Past 12 Hours) Vital Signs Temp Pulse Pulse Resp BP Pulse Ox O2 Del Method 09/24/24 14:37 103 H 09/24/24 13:16 90 18 94 Nasal Cannula 09/24/24 11:29 36.8 C 103 H 16 120/77 95 Nasal Cannula 09/24/24 09:50 Nasal Cannula 09/24/24 07:41 91 H 15 90 Nasal Cannula 09/24/24 07:32 36.7 C 99 H 16 127/78 95 Nasal Cannula 09/24/24 07:17 91 H 09/24/24 03:31 37 C 89 18 125/67 96 Nasal Cannula O2 Flow Rate 09/24/24 14:37 09/24/24 13:16 2 09/24/24 11:29 2 09/24/24 09:50 4 09/24/24 07:41 09/24/24 07:32 2 09/24/24 07:17 09/24/24 03:31 4 Laboratory Results 09/24/24 06:10 09/24/24 06:10 PG Care Time/CCT Total # of Minutes Spent Total Time Spent with Patient: Total time spent is greater than 50% in coordination of care (as documented) at patient's floor/unit and/or counseling patient: Coding Level of Care Code 90339 SUB INP/OBS CARE 2/35MIN Diagnoses Pneumothorax, right J93.9 Diverticulitis K57.92 Sinus tachycardia R00.0 Hypokalemia E87.6 Hypomagnesemia E83.42 Elevated troponin R79.89 COPD (chronic obstructive pulmonary disease) J44.9
[2024-09-25 07:05] VITALS: O2SAT 97
[2024-09-25 07:06] VITALS: BP 135/81; RESP 18; TEMP 98.2
[2024-09-25 07:07] VITALS: PULSE 83
--- NOTE | 2024-09-25 08:05 | XRay Report ---
EXAM: XR chest 1V portable CLINICAL HISTORY: ptx TECHNIQUE: Radiograph of chest was acquired. 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 Possible mild right pneumothorax. Mild right pleural effusion. No evidence of left pleural effusion. Bilateral hyperinflated lung payan with changes of emphysema in both lungs. Fibrotic and atelectatic bands in bilateral mid and lower zones. The cardiomediastinal silhouette is within normal limits. No acute osseous abnormality. IMPRESSION: 1. Right side chest tube/pitail catheter seen. Possible mild right pneumothorax- Stable. 2. Mild right pleural effusion. 3. Fibrotic and atelectatic bands in bilateral mid and lower zones- Stable. No other new interval abnormality since prior study. Electronically signed by Ludwig Pickesn 09-25-2024 08:03 AM
[2024-09-25 08:24] LABS: Basophils # (auto) 0.03 K/uL (0.00-0.20); Basophils % (auto) 0.2 %; Eosinophils % (auto) 2.3 %; Hematocrit (blood only) 32.1 % (37.0-47.0); Hemoglobin 10.3 g/dl (12.0-16.0); Immature Granulocytes # (auto) 0.09 K/uL (0.01-0.20); Immature Granulocytes % (auto) 0.5 %; Lymphocytes # (auto) 2.39 K/uL (1.20-3.40); Lymphocytes % (auto) 13.8 %; Mean Corpuscular Hemoglobin 28.7 pg (25.0-34.0); Mean Corpuscular Hgb Conc 32.1 g/dL (32.0-36.0); Mean Corpuscular Volume 89.4 fL (80.0-100.0); Monocytes # (auto) 0.85 K/uL (0.11-0.59); Monocytes % (auto) 4.9 %; Neutrophils # (auto) 13.57 K/uL (1.40-6.50); Neutrophils % (auto) 78.3 %; Platelet Count 727 K/uL (130-400); RDW Coefficient of Variation 13.4 % (11.5-14.5); RDW Standard Deviation 44.7 fL (36.4-46.3); Red Blood Count 3.59 M/uL (4.20-5.40); White Blood Count 17.33 K/ul (4.8-10.8)
[2024-09-25 08:46] LABS: BUN Creatinine Ratio 13.6 (10-20); Calcium 8.7 mg/dl (8.6-10.3); Creatinine Clr Calc Pharmacy 61.5 ml/min; Potassium 3.9 mmol/L (3.5-5.1)
--- NOTE | 2024-09-25 08:56 | Surgery Progress Note ---
Date of Service September 25, 2024 Assessment & Plan (1) Diverticulitis: Plan: Patient here with diverticulitis with concern for developing serosal abscesses WBC is increasing 17 today. Vitals are stable and she is afebrile She denies abdominal pain and reports tolerating full liquids & requesting advancement to real food She is requesting her diet be advanced, appears this has been done, will adjust to low fiber + loose stools, could consider sending cdiff to rule out etiology for elevated WBC On exam patient is sitting up in chair, denies tenderness to palpation in abdomen It appears she may be transferred for pulmonary issues requiring R chest tube for pneumothorax If remains admitted could consider repeat CT scan for evaluation of ^ WBC if medicine has no other reasons for the increase despite any abdominal complaints If tsfers will need to continue/complete a full course of abx for treatment of diverticulitis Admission and Anticipated Discharge Date Admission Date: September 19, 2024 Supervising Physician Co-Signing Physician Notes Patient discussed with ARMIN, agree with above. Resolving diverticulitis, no surgical intervention indicated. Main issue is now pneumothorax with significant COPD and suspected bronchopulmonary fistula. She is being evaluated for transfer for management of this. Diet as tolerated, complete course of antibiotics, surgery will sign off, call with questions or concerns Subjective Patient reports feeling okay, passing loose stools with some gas. No nausea/vomiting. Tolerating full liquids, she is hungry for more. Denies any worsening abdominal pains. Some intermittent lower back pain reported. No worsening respiratory status. Physical Exam Physical Exam: awake, sitting up in chair. no distress Respiratory: on supplemental nasal cannula, chest tube in place Gastrointestinal (Abdomen): Percussion/Palpation: abdomen soft; abdomen nontender no obvious tenderness to palpation, some voluntary guarding while sitting up in chair with palpation to lower abdomen Results & Data Vital Signs (Past 12 Hours) Vital Signs Temp Pulse Pulse Pulse Resp BP Pulse Ox 09/25/24 08:49 09/25/24 07:07 83 09/25/24 07:06 98.2 F 97 H 18 135/81 97 09/25/24 07:04 97 H 19 97 09/25/24 03:43 98.6 F 105 H 20 137/55 L 94 09/24/24 23:26 97.9 F 89 16 126/70 94 09/24/24 21:41 99 H O2 Del Method O2 Flow Rate 09/25/24 08:49 Nasal Cannula 4 09/25/24 07:07 09/25/24 07:06 Nasal Cannula 4 09/25/24 07:04 Nasal Cannula 4 09/25/24 03:43 Nasal Cannula 4 09/24/24 23:26 Nasal Cannula 4 09/24/24 21:41 PG Care Time/CCT Total # of Minutes Spent Total Time Spent with Patient: Total time spent is greater than 50% in coordination of care (as documented) at patient's floor/unit and/or counseling patient: Coding Level of Care Code 17615 SUB INP/OBS CARE 06/03MIN Diagnoses Diverticulitis K57.92
--- NOTE | 2024-09-25 09:28 | Hospitalist Progress Note ---
Date of Service September 25, 2024 Assessment & Plan (1) Pneumothorax, right: Plan: -severe emphysema with spontaneous right PTX 2nd to lung dz -anterior pigtail cath placed -5 days of conservative management with no improvement -concern fro bronchopleural fistula -pt is poor surgical candidate -Pulmonary recommending transfer to [facility] (2) Diverticulitis: Plan: Recurrent sigmoid diverticulitis Improving with Zosyn, day 7 Will advance diet to regular (3) Sinus tachycardia: Plan: . Diltiazem uptitrated from 3 times a day dosing to 4 times a day (4) Hypokalemia: Plan: Corrected. She remains on oral replacement therapy. She received parenteral re placement earlier this admission. Serial labs (5) Hypomagnesemia: Plan: Corrected with replacement therapy. Present on admission. Serial labs (6) Elevated troponin: Plan: Minimal. No chest pain. No acute EKG changes. No evidence of acute coronary syndrome (7) COPD (chronic obstructive pulmonary disease): Plan: With chronic respiratory failure. She uses 4 L of oxygen at rest and 6 L with any activity. She sees pulmonology as an outpatient. Plan Transfer to [facility] Admission and Anticipated Discharge Date Admission Date: September 19, 2024 Subjective Pt requesting her diet be advanced to regular. No abdominal pain. Pigtail cath in place. Review of Systems Review of Systems: CONST: Negative for fever, body aches and chills. HENT: Negative for neck pain/stiffness, headache, congestion, sore throat, swelling. EYES: Negative for discharge/pain or vision changes. RESP: Negative for cough/hemoptysis and shortness of breath. CV: Negative chest pain, difficulty breathing, palpitations. ABD: Negative pain, nausea, vomiting. : Negative increase frequency, dysuria, blood in urine or stool. MUSC: Negative for muscle aches, edema. SKIN: Negative rash, lesions/sores. NEURO: Negative headache, dizziness, weakness. Physical Exam Physical Exam: GENERAL APPEARANCE NAD, activity normal for age, well developed/ well nourished, no cyanosis, pallor, or diaphoresis. EYES lids/conjunctiva normal. EARS/NOSE/THROAT Mucous membranes moist, nares normal, lips/teeth normal uvula midline without oral pharyngeal erythema, exudate or swelling TMs normal bilaterally. No lymphangitis/lymphedema. HEAD/NECK normocephalic atraumatic, no facial trauma, neck is supple. RESPIRATORY respiratory effort normal, speaks in full sentences, no tripod position, no accessory muscle use. Lungs clear to auscultation without rhonchi, wheezes, rales CARDIAC Regular rate and rhythm, no edema. ABDOMINAL Soft, ND/NT. No evidence of fluid wave. No pulsatile masses on exam, rebound tenderness, Blankenship sign or pain over Mcburney's point. MUSCLES/EXTREMITIES No abnormal range of motion, no swelling. SKIN Warm, pink and dry. No rashes, dermatoses, petechiae or lesions. NEUROLOGICAL Speech is clear and appropriate. Normal level of consciousness. Gait and coordination are normal. 5/5 strength in all extremities. PSYCH Normal mood and affect. Judgement/competence is appropriate Results & Data Results & Data Vital Signs (Past 12 Hours) Vital Signs Temp Pulse Pulse Pulse Resp BP Pulse Ox 09/25/24 08:49 09/25/24 07:07 83 09/25/24 07:06 36.8 C 97 H 18 135/81 97 09/25/24 07:04 97 H 19 97 09/25/24 03:43 37 C 105 H 20 137/55 L 94 09/24/24 23:26 36.6 C 89 16 126/70 94 09/24/24 21:41 99 H O2 Del Method O2 Flow Rate 09/25/24 08:49 Nasal Cannula 4 09/25/24 07:07 09/25/24 07:06 Nasal Cannula 4 09/25/24 07:04 Nasal Cannula 4 09/25/24 03:43 Nasal Cannula 4 09/24/24 23:26 Nasal Cannula 4 09/24/24 21:41 PG Care Time/CCT Total # of Minutes Spent Total Time Spent with Patient: Total time spent is greater than 50% in coordination of care (as documented) at patient's floor/unit and/or counseling patient: Coding Level of Care Code 74347 SUB INP/OBS CARE 2/35MIN Diagnoses Pneumothorax, right J93.9 Diverticulitis K57.92 Sinus tachycardia R00.0 Hypokalemia E87.6 Hypomagnesemia E83.42 Elevated troponin R79.89 COPD (chronic obstructive pulmonary disease) J44.9
--- NOTE | 2024-09-25 10:41 | Pulmonology Progress Note ---
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 She developed spontaneous secondary pneumothorax requiring chest tube placement. She has evidence of ongoing air leak consistent with bronchopleural fistula. She is a poor surgical candidate currently. Recommendations: Bronchopleural fistula: -Conservative measures without resolution of right PTX indicating bronchopleural fistula. -Cont chest tube suction to 20 cm of water -The patient is a poor surgical candidate but given lack of resolution of PTX will recommend transfer to [facility] for definitive management. -Try to avoid positive airway pressure or coughing at this point in time. -Continue daily chest x-ray if not immediately transferred. COPD: - No current signs of exacerbation - Bronchodilators as needed. Hypoxemia: - Patient on oxygen at home - Continue oxygen titrated to keep saturations around 90%. Patient's overall prognosis is guarded. Engaging palliative care might be appropriate Admission and Anticipated Discharge Date Admission Date: September 19, 2024 Supervising Physician Co-Signing Physician Notes I saw and evaluated the patient with SONY Pink, and agree with findings and plan as documented in the note. Patient seen and examined at bedside. No acute distress, no adverse event overnight Case discussed with outgoing physician. Patient's daughter was also in the room at the time of examination She was anxious given that we were thinking about transferring her to a tertiary hospital for the continuous airleak Education regarding the necessity was explained. She did come down. Denied any worsening shortness of breath. No chest pain No nausea or vomiting No abdominal pain Constitutional: No acute distress, frail-appearing HEENT: EOMI, PERRLA Respiratory system: Decreased air entry bilaterally, no wheeze, no rhonchi, mild crackles bilateral lower lobe CVS: S1-S2 positive, no murmurs or gallops Abdomen: Soft, nontender, nondistended, positive bowel sounds x4 Extremities: +2 pulses bilaterally radialis/ dorsalis pedis, no cyanosis, no edema Neuro: Awake alert oriented x3 Psych: Normal mood and affect G/U: Positive Oliveros Plan: Chest tube still has persistent continuous +1-+2 leak. Sometimes going up to +3- +4. Given the persistent continuous leak appreciated on the chest tube I think it is better for the patient to be seen by CT surgery for VATS vs Endobronchial valves. Patient will still be at higher risk for any procedure given the severe COPD that she has but it might be the best approach. Probability of pigtail catheter being intraparenchymal is also there. Case was discussed with patient, patient's daughter, RN at bedside. I spent more than 50 minutes looking in the chart, images, discussing with outgoing physician, discussing the plan of care with the patient, RN as well as primary team Please note the above document was generated using voice recognition software. It may contain grammatical, syntax or spelling errors.Any formal questions or concerns about the content, text or information contained within the body of this dictation should be directly addressed to the provider for clarification. Subjective "My breathing feels good. I have jus a little pain on my right side of my chest." Chest tube remains at -20cm of suction this am. CXR this am showed stable mild right pneumothorax with pleural effusion. Given concern for bronchopleural fistula and lack of resolution of right pneumothorax despite conservative management. Recommend transfer to [facility] in [place] for definitive care. Review of Systems 2 Review of Systems: All systems reviewed & are unremarkable except as noted in Subjective Physical Exam 2 Constitutional: + cachectic and + frail appearing Neck: trachea midline, no thyromegaly Respiratory: no respiratory distress, no labored breathing, no cough and not tachypneic Auscultation: + diminished lung sounds; no crackles and no wheezes Cardiovascular: RRR, no murmur, no edema Gastrointestinal (Abdomen): normal bowel sounds, soft, nontender, no hepatosplenomegaly Musculoskeletal: Extremities: extremities normal to inspection Skin: no rashes, warm and dry Lymphatic: no cervical lymphadenopathy Results & Data Results & Data Vital Signs (Past 12 Hours) Vital Signs Temp Pulse Pulse Pulse Resp BP Pulse Ox 09/25/24 08:49 09/25/24 07:07 83 09/25/24 07:06 36.8 C 97 H 18 135/81 97 09/25/24 07:04 97 H 19 97 09/25/24 03:43 37 C 105 H 20 137/55 L 94 09/24/24 23:26 36.6 C 89 16 126/70 94 O2 Del Method O2 Flow Rate 09/25/24 08:49 Nasal Cannula 4 09/25/24 07:07 09/25/24 07:06 Nasal Cannula 4 09/25/24 07:04 Nasal Cannula 4 09/25/24 03:43 Nasal Cannula 4 09/24/24 23:26 Nasal Cannula 4 Laboratory Results 09/25/24 07:56 09/25/24 07:56 Abnormal Lab Results 09/25/24 07:56 WBC 17.33 H RBC 3.59 L Hgb 10.3 L Hct 32.1 L MCV 89.4 MCH 28.7 MCHC 32.1 RDW Std Deviation 44.7 RDW Coeff of Luis 13.4 Plt Count 727 H MPV 9.0 L Immature Gran % (Auto) 0.5 Neut % (Auto) 78.3 Lymph % (Auto) 13.8 Mccracken % (Auto) 4.9 Eos % (Auto) 2.3 Baso % (Auto) 0.2 Neut # (Auto) 13.57 H Lymph # (Auto) 2.39 Mccracken # (Auto) 0.85 H Eos # (Auto) 0.40 Baso # (Auto) 0.03 Immature Gran # (Auto) 0.09 Sodium 140 Potassium 3.9 Chloride 105 Carbon Dioxide 27 Anion Gap 8 BUN 8 Creatinine 0.59 L Est Cr Clr Drug Dosing 61.5 eGFR 99.95 BUN/Creatinine Ratio 13.6 Glucose 95 Calcium 8.7 Diagnostic Findings Chest X-Ray 09/25/24 07:00 EXAM: XR chest 1V portable CLINICAL HISTORY: ptx TECHNIQUE: Radiograph of chest was acquired. 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 Possible mild right pneumothorax. Mild right pleural effusion. No evidence of left pleural effusion. Bilateral hyperinflated lung payan with changes of emphysema in both lungs. Fibrotic and atelectatic bands in bilateral mid and lower zones. The cardiomediastinal silhouette is within normal limits. No acute osseous abnormality. IMPRESSION: 1. Right side chest tube/pitail catheter seen. Possible mild right pneumothorax- Stable. 2. Mild right pleural effusion. 3. Fibrotic and atelectatic bands in bilateral mid and lower zones- Stable. No other new interval abnormality since prior study. Electronically signed by Ludwig Pickens 09-25-2024 08:03 AM PG Care Time/CCT Total # of Minutes Spent Total Time Spent with Patient: Total time spent is greater than 50% in coordination of care (as documented) at patient's floor/unit and/or counseling patient: Coding Level of Care Code 58163 SUB INP/OBS CARE 3/50MIN Diagnoses Pneumothorax, right J93.9 Pulmonary cachexia due to COPD R64; J44.9 Stage 4 very severe COPD by GOLD classification J44.9 Bronchopleural fistula J86.0
--- NOTE | 2024-09-25 10:50 | Discharge Summary ---
Discharge Summary Date of Service September 25, 2024 Principal Dx & Hospital Course #1 = Principal Diagnosis (1) Pneumothorax, right: -severe emphysema with spontaneous right PTX 2nd to lung dz -anterior pigtail cath placed -5 days of conservative management with no improvement -concern fro bronchopleural fistula -pt is poor surgical candidate -Pulmonary recommending transfer to [facility] -Pt accepted by Dr. Jason Camarillo (2) Diverticulitis: Recurrent sigmoid diverticulitis Improving with Zosyn, day 7 Will advance diet to regular (3) Sinus tachycardia: . Diltiazem uptitrated from 3 times a day dosing to 4 times a day (4) Hypokalemia: Corrected. She remains on oral replacement therapy. She received parenteral replacement earlier this admission. Serial labs (5) Hypomagnesemia: Corrected with replacement therapy. Present on admission. Serial labs (6) Elevated troponin: Minimal. No chest pain. No acute EKG changes. No evidence of acute coronary syndrome (7) COPD (chronic obstructive pulmonary disease): With chronic respiratory failure. She uses 4 L of oxygen at rest and 6 L with any activity. She sees pulmonology as an outpatient. Plan Transfer to [facility] Admission HPI Per Admitting Provider 63-year-old female PMHx end-stage COPD,, respiratory failure with hypoxia, CAD s/p 2 IMELDA, dyslipidemia, HTN, anxiety, severe malnutrition, and involved with the palliative care program presenting after recent hospital admission from 09/12/2024 until 09/17/2024 for diverticulitis who presents today for lower back pain. The day [employer], the patient started to have return of significant lower back pain which she initially attributed to a fall that occurred earlier in the month, but given that it was severe and constant she decided to be evaluated. States that she did not have a fall just prior to this hospitalization, but did have a fall at the beginning of September whenever she was first hospitalized. States that overall her back pain is in the same location and is in her central back, without much radiation other than mildly to the sides. Patient does have very minimal lower abdominal pain. Has not felt feverish, but reports that a fever was present upon her arrival to the hospital. Not having nausea or vomiting at present. Did have 1 episode of diarrhea the day [employer]ATIONS [employer], but states that she drink a tea that normally causes her to have looser bowel movements. Patient has dysuria, unable to tell me when it initiated. Otherwise patient without complaints. No chest pain, shortness of breath, palpitations, numbness/tingling, weakness, syncope, URI symptoms, or fever/chills. Patient states that this felt similar to her prior episode of diverticulitis which required hospitalization and this is why she came in. ED evaluation reveals leukocytosis 18.27, H&H 11.1/33.8, platelets 453; CMP potassium 2.9, chloride 95, CO2 36, glucose 132, magnesium 1.3; troponin 14.7; procalcitonin 3.67; UA negative for infection; BioFire negative; CXR stable emphysema presumed chronic interstitial scarring, no acute findings; CTAP severe long segment retrosigmoid colitis/acute diverticulitis with suspected developing serosal margin abscess, n o perforation, probable obstructive uropathy and associated right pyelitis, distended gallbladder with mild intra and extrahepatic ductal dilatation, severe emphysema; chest CTA without evidence of PE or gross mass/focal infiltrate, does reveal severe emphysema; lumbar spine CT L2-3 retrolisthesis and DDD, no fracture or bony abnormality; EKG sinus tach with nonspecific ST-T wave abnormality at 111 bpm.; Patient was provided with 1.5 mL NSS, Dilaudid 0.5 mg IV, Tylenol 1 g p.o., Zosyn 4.5 g IV, vancomycin IV, KCl 40 mEq p.o. and 30 mEq IV, and mag sulfate 2 g IV in ED. Please see Dr. Vernon's attestation for adjustments/additions to treatment plan. Discharge Exam GENERAL APPEARANCE NAD, activity normal for age, well developed/ well nourished, no cyanosis, pallor, or diaphoresis. EYES lids/conjunctiva normal. EARS/NOSE/THROAT Mucous membranes moist, nares normal, lips/teeth normal uvula midline without oral pharyngeal erythema, exudate or swelling TMs normal bilaterally. No lymphangitis/lymphedema. HEAD/NECK normocephalic atraumatic, no facial trauma, neck is supple. RESPIRATORY respiratory effort normal, speaks in full sentences, no tripod position, no accessory muscle use. Lungs clear to auscultation without rhonchi, wheezes, rales CARDIAC Regular rate and rhythm, no edema. ABDOMINAL Soft, ND/NT. No evidence of fluid wave. No pulsatile masses on exam, rebound tenderness, Blankenship sign or pain over Mcburney's point. MUSCLES/EXTREMITIES No abnormal range of motion, no swelling. SKIN Warm, pink and dry. No rashes, dermatoses, petechiae or lesions. NEUROLOGICAL Speech is clear and appropriate. Normal level of consciousness. Gait and coordination are normal. 5/5 strength in all extremities. PSYCH Normal mood and affect. Judgement/competence is appropriate Discharge Plan Discharge Items Patient Disposition: Transfer Acute Care Hospital Reason For Visit: DIVERTICULITIS, HYPOKALEMIA,HYPOMAGNESEMIA,ELEVATE Discharge Diagnosis: Right PTX, diverticulitis Condition on Discharge: Fair Activity: Resume your previous activity Non-emergency contact: Primary Care Provider Call non-emergency contact if: you have any medication questions Follow-up/Referrals: Sunshine Judd MD [Primary Care Provider] - Chey Givens DNP [Nurse Practitioner] - 10/12/24 1:00 pm (PLEASE KEEP APPT. ) Diet: Regular Addtl Attending Provider Instructions: Follow up with Dr. Jason Camarillo Pending Studies at Discharge: No Stand-Alone Forms: My [facility] Skilled Items Patient informed of condition?: Yes DNR: Yes Discharge Level of Care: Other Communicable Disease: No Discharge Prognosis: Stable Lines: Peripheral IV Urinary Catheter: No Medications and DC Order Prescriptions: New diltiazem HCl 60 mg Tablet 60 mg PO QID Qty: 60 0RF Continued aspirin [Adult Low Dose Aspirin] 81 mg tablet,delayed release (DR/EC) 81 mg PO Q OTHER DAY Rx Instructions: 81 mg PO every other day; roflumilast [Daliresp] 500 mcg tablet 500 mcg PO DAILY Qty: 90 3RF albuterol sulfate 90 mcg/actuation HFA aerosol inhaler 2 inh inhalation QID PRN (Reason: shortness of breath or wheezing) 90 Days Qty: 8.5 3RF ipratropium-albuterol 0.5 mg-3 mg(2.5 mg base)/3 mL solution for nebulization 3 ml INHALATION Q6H 90 Days Qty: 180 3RF Rx Instructions: J44.9 COPD cholecalciferol (vitamin D3) 25 mcg (1,000 unit) capsule 25 mcg PO QAM guaifenesin [Mucinex] 600 mg tablet extended release 12hr 600 mg PO BID PRN (Reason: congestion) Qty: 60 1RF Rx Instructions: Take 1 tab p.o. twice a day for 7 days and then as needed (DME) Portable Oxygen Misc See Rx Instructions .MEDSUPPLY Qty: 1 0RF Rx Instructions: Oxygen liters continuous via nasal cannula at rest and 6 L continuous via nasal cannula on exertion with portable concentrator. DUNIA 99 pantoprazole 40 mg tablet,delayed release (DR/EC) 40 mg PO BID Qty: 180 3RF escitalopram oxalate 20 mg tablet 20 mg PO HS Qty: 90 3RF atorvastatin 40 mg tablet 40 mg PO HS Qty: 90 3RF azithromycin 250 mg tablet 250 mg PO 3XWK Qty: 36 3RF Rx Instructions: 250 mg PO 1 tab p.o. [id number]; (DME) Portable Oxygen Misc See Rx Instructions .MEDSUPPLY Qty: 1 0RF Rx Instructions: Oxygen 5 liters continuous via nasal cannula on exertion with portable concentrator. DUNIA 99 Emergen-C 1,000 mg Powder Effervescent In Packet 1 ea PO DAILY PRN (Reason: Cold Symptoms) Medical Marijuana 1 dose PO DIRECTED PRN (Reason: Anxiety) morphine 20 mg/5 mL (4 mg/mL) solution See Rx Instructions .ROUTE .COMPLEX PRN (Reason: Shortness Of Breath) Rx Instructions: TAKE 1.25ML BY MOUTH EVERY 6 HOURS NEEDED FOR SHORTNESS OF BREATH mirtazapine 15 mg tablet,disintegrating 15 mg PO HS simethicone [Gas Relief (simethicone)] 80 mg Tablet,Chewable 80 mg PO Q6H PRN (Reason: abdominal distention) 30 Days Qty: 30 0RF Lactobacillus acidoph-L.bulgar [Floranex] 100 million cell Granules In Packet 1 packet PO TIDM 30 Days Qty: 30 0RF Discontinued metronidazole 500 mg Tablet 500 mg PO TID Qty: 21 0RF ciprofloxacin HCl 500 mg Tablet 500 mg PO BID Qty: 14 0RF ciprofloxacin 500 mg/5 mL suspension,microcapsule recon 500 mg PO Q12H 7 Days Qty: 70 0RF Discharge Orders: Discharge Order (Routine); Ordered 09/25/24 Ordered By: Jayden Eng Admission Data Admit Date/Time: 09/19/24 02:19 Attending Provider: Jayden Eng Admit Provider: Elida Vernon Primary Care Provider: Sunshine Judd Other Providers: Elida Vernon; Lev Braun; Minor Bond; Chey Givens Hospital Stay Data Consultations 09/19/24 01:10 ED Decision to Admit Stat 09/19/24 04:10 Consult General Surgery Routine 09/20/24 13:41 Consult Pulmonology Stat 09/25/24 09:37 Consult Palliative Care Routine Diagnostic Imagining Performed 09/18/24 21:56 CT Abd and Pelvis [CT abd pelvis IV con only] Stat CT angio chest PE protocol Stat CT lumbar spine w con Stat 09/21/24 07:58 CT chest without contrast [CT chest diagnostic wo con] Routine Pending Results Patient Have Any Pending Studies at Discharge: No Discharge Instructions Given to Patient (Per Discharging Provider) Follow up with Dr. Jason Camarillo Total Time Total Time Spent Total Time Spent (In Minutes): 50 Coding Level of Care Code 46067 INP/OBS DISCH >30 MIN Diagnoses Pneumothorax, right J93.9 Diverticulitis K57.92 Sinus tachycardia R00.0 Hypokalemia E87.6 Hypomagnesemia E83.42 Elevated troponin R79.89 COPD (chronic obstructive pulmonary disease) J44.9
--- NOTE | 2024-09-25 11:33 | Palliative Care Consultation ---
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 She DOES NOT want a trach/PEG or ad terminal makeup operator vent support. She DOES NOT want SNF, Vent SNF or other care facility. If she is nearing EOL her wished are to be home with family. Her overall emphasis is on QOL. Madi has a completed POLST form. Original is with and will remain with . Her POLST form summarizes the above preferences. Copies have been provided to nursing unit for paper chart and transfer. This should be scanned into EMRs on arrival to [facility] [facility] Eng was able to join us for the latte part of meeting and we reviewed her wishes/preferences. I encouraged her to be very clear and vocal about her wishes with her [facility] team when she arrives. it will be ela important for surgical and ICU teams to know her limits and boundaries. I have sent a secure email to: [facility] Pall med/Drs. Alyce Birmingham and Mercy, [facility] CCM/Drs. Grubbs and Piero Birmingham, [facility] Thoracic Surgery/Dr. Jermaine Bell, and provided recent echo, PFT, pall med and pulm med notes. (7) Palliative care by specialist: Introduced Palliative Medicine and explained our role in patient's care. Patient and/or family were receptive to palliative services for goals of care discussions. Reviewed we are different from hospice, a home health nurse visiting service. (8) Pulmonary cachexia due to COPD: History of Present Illness Reason for Consultation: adv COPD, continuity of care Attending Physician: Jayden Eng MD History of Present Illness Madi is well know to me from OP Pall med clinic where she is followed for very adv COPD Currently admitted with diverticulitisdiarrhea/poor oral intake and developed a new complication of right PTX - an anterior pigtail was place and it has been 5- 6 days without improvement, +BP fistula She is a borderline to poor surgical candidate A transfer to [facility] has been recommended [facility] requested to assist with GOC discussion PMH: COPD on oxygen at home, hyperlipidemia, hypertension, coronary artery disease, pulmonary nodules, anxiety Allergies Allergy/AdvReac Type Severity Reaction Status Date / Time bupropion [From Wellbutrin] Allergy Severe Unknown Verified 09/12/24 14:15 sulfamethoxazole Allergy Severe THROAT AND Verified 09/12/24 14:15 EARS SWELL trimethoprim Allergy Severe THROAT AND Verified 09/12/24 14:15 EARS SWELL codeine AdvReac Intermediate STOMACH Verified 09/12/24 14:15 CRAMPS, "KNOCKS ME OUT FOR DAYS" Home Medications Medication Instructions Recorded Confirmed Type aspirin 81 mg tablet,delayed 81 mg PO Q OTHER DAY 04/25/19 09/19/24 History release (Adult Low Dose Aspirin) cholecalciferol (vitamin D3) 25 25 mcg PO QAM 03/26/21 09/19/24 History mcg (1,000 unit) capsule ascorbic acid 1,000 1 ea PO DAILY PRN Cold Symptoms 04/03/22 09/19/24 History fi-twzwaztmbftl-pystnmbu powder effervescent pack (Emergen-C) Medical Marijuana 1 dose PO DIRECTED PRN Anxiety 06/22/22 09/19/24 History guaifenesin 600 mg tablet, 600 mg PO BID PRN congestion #60 12/09/22 09/19/24 Rx extended release 12 hr (Mucinex) tabs Portable Oxygen #1 ea 07/29/23 05/22/24 Rx Portable Oxygen #1 ea 01/28/24 05/22/24 Rx azithromycin 250 mg tablet 250 mg PO 3XWK #36 tabs 01/28/24 09/19/24 Rx atorvastatin 40 mg tablet 40 mg PO HS #90 tabs 05/22/24 09/19/24 Rx escitalopram oxalate 20 mg tablet 20 mg PO HS #90 tabs 05/22/24 09/19/24 Rx pantoprazole 40 mg tablet,delayed 40 mg PO BID #180 tabs 01/13/25 05/13/25 Rx release roflumilast 500 mcg tablet 500 mcg PO DAILY #90 tabs 07/11/24 09/19/24 Rx (Daliresp) albuterol sulfate 90 mcg/actuation 2 inh inhalation QID PRN shortness 07/18/24 09/19/24 Rx aerosol inhaler of breath or wheezing 3 months #8.5 grams ipratropium 0.5 mg-albuterol 3 mg 3 ml inhalation Q6H end stage COPD 07/18/24 09/19/24 Rx (2.5 mg base)/3 mL nebulization 3 months #180 mL soln mirtazapine 15 mg disintegrating 15 mg PO HS anorexia 09/12/24 09/19/24 History tablet morphine 20 mg/5 mL (4 mg/mL) oral See Rx Instructions .Route 09/12/24 09/19/24 History solution .COMPLEX PRN Shortness Of Breath Lactobacillus acidophilus, 1 packet PO TIDM 30 days #30 ea 09/17/24 09/19/24 Rx bulgaricus 100 million cell granules packet (Floranex) simethicone 80 mg chewable tablet 80 mg PO Q6H PRN abdominal 09/17/24 09/19/24 Rx (Gas Relief (simethicone)) distention 30 days #30 tabs diltiazem HCl 60 mg tablet 60 mg PO QID #60 tabs 09/25/24 Rx Patient History Medical History Sleep apnea cpap On home oxygen therapy 3LPM Pneumonia due to COVID-19 virus May/Jun 2021 > hospitalized at [facility] Constipation Colitis resolved per pt Myocardial infarct November 2011 Surgical History History of nasal surgery History of nasal cauterization History of tonsillectomy History of hysterectomy partial History of appendectomy Family History Father Lung cancer Mother , age 68 Stroke Brother Enlarged liver Grandmother (Maternal) Colorectal cancer Other Diabetes Hypertension Denies family history of Ovarian cancer Prostate cancer Breast cancer Social History Smoking Status: Never smoker Tobacco Type: Cigarettes Age Started Using Tobacco: 8; Age Quit Using Tobacco: 52; packs per day: 1.5; Cigarettes Per Day: 20; Second Hand Exposure: No; Do You Dip or Chew Tobacco: No; Hx Alcohol Use: No Hx Substance Use: No Preferred Language: Emirati Communication Ability: Effective Visual Impairment: No Limitations Hearing Ability: Normal Residential Sales Associate Required: Yes Beliefs That Will Affect Care: None marital status: Current Living Situation: Spouse Current Living Situation Comment: current occupational status: retired Feels Safe at Home: Yes Childhood Exposure to Second-Hand Smoke: Yes Dental Care, Regularly: No Physical Activity Frequency: Does not Exercise Seatbelt Use: always Sunscreen Use: No Assistive Devices: Oxygen - Continuous Review of Systems Review of Systems: All systems reviewed & are unremarkable except as noted in Subjective Physical Exam Constitutional: + ill appearing, + cachectic, + frail ap pearing, well groomed and cooperative Eyes: PERRL, conjunctivae normal, anicteric sclerae ENMT: external ear and nose normal, oropharynx normal Mouth: + dry oral mucous membranes Neck: trachea midline, no thyromegaly Respiratory: + labored breathing, + uses accessory mu scles, + cough (dry), + prolonged expiratory phase and symmetric chest movement Auscultation: + diminished lung sounds (markedly dim bases); no crackles, no rales, no rhonchi and no wheezes Cardiovascular: Rate/Rhythm: + tachycardic Gastrointestinal (Abdomen): Inspection/Auscultation: + scaphoid Percussion/Palpation: + abdomen tender, + guarding and abdomen soft Musculoskeletal: Head/Neck/Chest: neck supple Extremities: + limited ROM of extremities and + muscle atrophy Gait: + antalgic gait Skin: + turgor decreased and + pallor Neurologic: moves all extremities and awake (AAOx3) Psychiatric: Orientation: alert and oriented x 3 Apperance: appropriately dressed, appropriately groomed and appeared stated age Eye Contact: good eye contact Speech: normal rate/rhythm/volume of speech Affect: + anxious affect and + tearful affect Mood: + depressed mood Thought Process: linear/logical thought process and + perseveration Thought Content: + ho pelessness and + loneliness Cognition: recent memory grossly intact, remote memory grossly intact, attention grossly intact and language grossly intact Estimated Intelligence: consistent with education level Insight: good insight Judgment: good judgement Results & Data Vital Signs (Past 12 Hours) Vital Signs Temp Pulse Pulse Pulse Resp BP Pulse Ox 09/25/24 08:49 09/25/24 07:07 83 09/25/24 07:06 36.8 C 97 H 18 135/81 97 09/25/24 07:04 97 H 19 97 09/25/24 03:43 37 C 105 H 20 137/55 L 94 O2 Del Method O2 Flow Rate 09/25/24 08:49 Nasal Cannula 4 09/25/24 07:07 09/25/24 07:06 Nasal Cannula 4 09/25/24 07:04 Nasal Cannula 4 09/25/24 03:43 Nasal Cannula 4 Laboratory Results 09/25/24 09/24/24 09/23/24 Range/Units 07:56 06:10 06:32 WBC 17.33 H 15.36 H 14.47 H (4.8-10.8) K/ul RBC 3.59 L 3.33 L 3.40 L (4.20-5.40) M/uL Hgb 10.3 L 9.8 L 10.0 L (12.0-16.0) g/dl Hct 32.1 L 29.7 L 30.1 L (37.0-47.0) % MCV 89.4 89.2 88.5 (80.0-100.0) fL MCH 28.7 29.4 29.4 (25.0-34.0) pg MCHC 32.1 33.0 33.2 (32.0-36.0) g/dL RDW Std Deviation 44.7 43.5 42.3 (36.4-46.3) fL RDW Coeff of Luis 13.4 13.4 13.0 (11.5-14.5) % Plt Count 727 H 620 H 563 H (130-400) K/uL MPV 9.0 L 9.1 L 9.1 L (9.4-12.4) fL Immature Gran % (Auto) 0.5 0.5 0.5 % Neut % (Auto) 78.3 82.7 83.1 % Lymph % (Auto) 13.8 8.3 8.4 % [place] % (Auto) 4.9 5.5 5.1 % Eos % (Auto) 2.3 2.9 2.8 % Baso % (Auto) 0.2 0.1 0.1 % Neut # (Auto) 13.57 H 12.71 H 12.01 H (1.40-6.50) K/uL Lymph # (Auto) 2.39 1.27 1.22 (1.20-3.40) K/uL [place] # (Auto) 0.85 H 0.84 H 0.74 H (0.11-0.59) K/uL Eos # (Auto) 0.40 0.44 0.41 (0.00-0.50) K/uL Baso # (Auto) 0.03 0.02 0.02 (0.00-0.20) K/uL Immature Gran # (Auto) 0.09 0.08 0.07 (0.01-0.20) K/uL Sodium 140 141 140 (136-145) mmol/L Potassium 3.9 3.8 3.8 (3.5-5.1) mmol/L Chloride 105 105 104 (98-107) mmol/L Carbon Dioxide 27 27 28 (21-32) mmol/L Anion Gap 8 9 8 (3-11) BUN 8 7 6 (6-23) mg/dl Creatinine 0.59 L 0.57 L 0.54 L (0.6-1.2) mg/dl Est Cr Clr Drug Dosing 61.5 64.5 68.2 ml/min eGFR 99.95 100.79 102.11 BUN/Creatinine Ratio 13.6 12.3 11.1 (10-20) Glucose 95 84 97 (70-99(Fasting)) mg/dl Lactate (0.4-2.0) mmol/L Calcium 8.7 8.5 L 8.5 L (8.6-10.3) mg/dl Magnesium (1.7-2.4) mg/dl Total Bilirubin (0.2-1.0) mg/dl Direct Bilirubin (0-0.2) mg/dl AST (13-39) U/L ALT (7-52) U/L Alkaline Phosphatase (34-104) U/L Troponin I High Sens (0-14) pg/ml Total Protein (6.0-8.3) gm/dl Albumin (3.4-5.0) gm/dl Procalcitonin (0-0.5) ng/ml Free T4 (0.61-1.60) ng/dl Free T3 (2.3-4.2) pg/ml Urine Color Urine Appearance (Clear) Urine pH (4.5-7.5) Ur Specific [place] (1.000-1.030) Urine Protein (Negative) Urine Glucose (UA) (Negative) Urine Ketones (Negative) Urine Blood (Negative) Urine Nitrite (Negative) Urine Bilirubin (Negative) Urine Urobilinogen (Negative) Ur Leukocyte Esterase (Negative) Urine WBC (Auto) (0-5) /hpf Urine RBC (Auto) (0-2) /hpf U Hyaline Cast (Auto) (0-2) /lpf U Epithel Cells (Auto) (0-2) /hpf Urine Bacteria (Auto) (None Seen) Stl C. diff Tox B Gene (Neg) Adenovirus (PCR) (NotDetected) B. pertussis DNA (PCR) (NotDetected) B.parapertussis DNA PCR (NotDetected) C. pneumoniae DNA (PCR) (NotDetected) Coronavirus OC43 (PCR) (NotDetected) Coronavirus HKU1 (PCR) (NotDetected) Coronavirus 229E (PCR) (NotDetected) SARS-CoV-2 (PCR) (NotDetected) Coronavirus NL63 (PCR) (NotDetected) Human Metapneumovir PCR (NotDetected) Influenza Type A (PCR) (NotDetected) Influenza Type B (PCR) (NotDetected) M. pneumoniae (PCR) (NotDetected) Parainfluenza 1 (PCR) (NotDetected) Parainfluenza 2 (PCR) (NotDetected) Parainfluenza 3 (PCR) (NotDetected) Parainfluenza 4 (PCR) (NotDetected) RSV (PCR) (NotDetected) Entero/Rhino (PCR) (NotDetected) 09/22/24 09/21/24 09/20/24 Range/Units 05:34 10:09 05:41 WBC 13.10 H 13.50 H 14.74 H (4.8-10.8) K/ul RBC 3.33 L 3.40 L 3.15 L (4.20-5.40) M/uL Hgb 9.9 L 9.9 L 9.3 L (12.0-16.0) g/dl Hct 30.0 L 30.2 L 28.2 L (37.0-47.0) % MCV 90.1 88.8 89.5 (80.0-100.0) fL MCH 29.7 29.1 29.5 (25.0-34.0) pg MCHC 33.0 32.8 33.0 (32.0-36.0) g/dL RDW Std Deviation 43.8 42.6 43.9 (36.4-46.3) fL RDW Coeff of Luis 13.2 13.1 13.4 (11.5-14.5) % Plt Count 508 H 461 H 382 (130-400) K/uL MPV 9.3 L 9.2 L 9.6 (9.4-12.4) fL Immature Gran % (Auto) 0.5 0.5 % Neut % (Auto) 80.0 87.6 % Lymph % (Auto) 9.5 6.1 % [place] % (Auto) 8.0 5.3 % Eos % (Auto) 1.8 0.4 % Baso % (Auto) 0.2 0.1 % Neut # (Auto) 10.48 H 11.80 H (1.40-6.50) K/uL Lymph # (Auto) 1.25 0.83 L (1.20-3.40) K/uL [place] # (Auto) 1.05 H 0.72 H (0.11-0.59) K/uL Eos # (Auto) 0.23 0.06 (0.00-0.50) K/uL Baso # (Auto) 0.02 0.02 (0.00-0.20) K/uL Immature Gran # (Auto) 0.07 0.07 (0.01-0.20) K/uL Sodium 145 140 142 (136-145) mmol/L Potassium 3.3 L 2.9 L 3.2 L (3.5-5.1) mmol/L Chloride 104 97 L 102 (98-107) mmol/L Carbon Dioxide 34 H 34 H 33 H (21-32) mmol/L Anion Gap 7 9 7 (3-11) BUN 4 L 3 L 4 L (6-23) mg/dl Creatinine 0.57 L 0.47 L 0.41 L (0.6-1.2) mg/dl Est Cr Clr Drug Dosing 65.2 79.1 84.2 ml/min eGFR 100.79 105.58 109.12 BUN/Creatinine Ratio 7.0 L 6.4 L 9.8 L (10-20) Glucose 91 162 H 92 (70-99(Fasting)) mg/dl Lactate (0.4-2.0) mmol/L Calcium 8.3 L 8.3 L 8.2 L (8.6-10.3) mg/dl Magnesium (1.7-2.4) mg/dl Total Bilirubin 0.3 (0.2-1.0) mg/dl Direct Bilirubin 0.1 (0-0.2) mg/dl AST 31 (13-39) U/L ALT 18 (7-52) U/L Alkaline Phosphatase 85 (34-104) U/L Troponin I High Sens (0-14) pg/ml Total Protein 5.3 L D (6.0-8.3) gm/dl Albumin 2.8 L (3.4-5.0) gm/dl Procalcitonin (0-0.5) ng/ml Free T4 1.37 (0.61-1.60) ng/dl Free T3 2.09 L (2.3-4.2) pg/ml Urine Color Urine Appearance (Clear) Urine pH (4.5-7.5) Ur Specific [place] (1.000-1.030) Urine Protein (Negative) Urine Glucose (UA) (Negative) Urine Ketones (Negative) Urine Blood (Negative) Urine Nitrite (Negative) Urine Bilirubin (Negative) Urine Urobilinogen (Negative) Ur Leukocyte Esterase (Negative) Urine WBC (Auto) (0-5) /hpf Urine RBC (Auto) (0-2) /hpf U Hyaline Cast (Auto) (0-2) /lpf U Epithel Cells (Auto) (0-2) /hpf Urine Bacteria (Auto) (None Seen) Stl C. diff Tox B Gene (Neg) Adenovirus (PCR) (NotDetected) B. pertussis DNA (PCR) (NotDetected) B.parapertussis DNA PCR (NotDetected) C. pneumoniae DNA (PCR) (NotDetected) Coronavirus OC43 (PCR) (NotDetected) Coronavirus HKU1 (PCR) (NotDetected) Coronavirus 229E (PCR) (NotDetected) SARS-CoV-2 (PCR) (NotDetected) Coronavirus NL63 (PCR) (NotDetected) Human Metapneumovir PCR (NotDetected) Influenza Type A (PCR) (NotDetected) Influenza Type B (PCR) (NotDetected) M. pneumoniae (PCR) (NotDetected) Parainfluenza 1 (PCR) (NotDetected) Parainfluenza 2 (PCR) (NotDetected) Parainfluenza 3 (PCR) (NotDetected) Parainfluenza 4 (PCR) (NotDetected) RSV (PCR) (NotDetected) Entero/Rhino (PCR) (NotDetected) 09/19/24 09/19/24 09/19/24 Range/Units 08:44 08:14 04:46 WBC 17.30 H (4.8-10.8) K/ul RBC 3.35 L (4.20-5.40) M/uL Hgb 9.9 L (12.0-16.0) g/dl Hct 30.5 L (37.0-47.0) % MCV 91.0 (80.0-100.0) fL MCH 29.6 (25.0-34.0) pg MCHC 32.5 (32.0-36.0) g/dL RDW Std Deviation 43.8 (36.4-46.3) fL RDW Coeff of Luis 13.2 (11.5-14.5) % Plt Count 371 (130-400) K/uL MPV 9.4 (9.4-12.4) fL Immature Gran % (Auto) 0.5 % Neut % (Auto) 81.6 % Lymph % (Auto) 9.3 % [place] % (Auto) 6.9 % Eos % (Auto) 1.5 % Baso % (Auto) 0.2 % Neut # (Auto) 14.13 H (1.40-6.50) K/uL Lymph # (Auto) 1.61 (1.20-3.40) K/uL [place] # (Auto) 1.19 H (0.11-0.59) K/uL Eos # (Auto) 0.26 (0.00-0.50) K/uL Baso # (Auto) 0.03 (0.00-0.20) K/uL Immature Gran # (Auto) 0.08 (0.01-0.20) K/uL Sodium 143 141 (136-145) mmol/L Potassium 3.9 4.2 D (3.5-5.1) mmol/L Chloride 108 H 108 H (98-107) mmol/L Carbon Dioxide 30 29 (21-32) mmol/L Anion Gap 5 4 (3-11) BUN 5 L 6 (6-23) mg/dl Creatinine 0.44 L 0.55 L (0.6-1.2) mg/dl Est Cr Clr Drug Dosing 78.5 62.8 ml/min eGFR 107.27 101.66 BUN/Creatinine Ratio 11.4 10.9 (10-20) Glucose 112 H 111 H (70-99(Fasting)) mg/dl Lactate (0.4-2.0) mmol/L Calcium 8.1 L 7.9 L (8.6-10.3) mg/dl Magnesium 2.6 H (1.7-2.4) mg/dl Total Bilirubin (0.2-1.0) mg/dl Direct Bilirubin (0-0.2) mg/dl AST (13-39) U/L ALT (7-52) U/L Alkaline Phosphatase (34-104) U/L Troponin I High Sens (0-14) pg/ml Total Protein (6.0-8.3) gm/dl Albumin (3.4-5.0) gm/dl Procalcitonin (0-0.5) ng/ml Free T4 (0.61-1.60) ng/dl Free T3 (2.3-4.2) pg/ml Urine Color Urine Appearance (Clear) Urine pH (4.5-7.5) Ur Specific [place] (1.000-1.030) Urine Protein (Negative) Urine Glucose (UA) (Negative) Urine Ketones (Negative) Urine Blood (Negative) Urine Nitrite (Negative) Urine Bilirubin (Negative) Urine Urobilinogen (Negative) Ur Leukocyte Esterase (Negative) Urine WBC (Auto) (0-5) /hpf Urine RBC (Auto) (0-2) /hpf U Hyaline Cast (Auto) (0-2) /lpf U Epithel Cells (Auto) (0-2) /hpf Urine Bacteria (Auto) (None Seen) Stl C. diff Tox B Gene Negative Cdiff Gene (Neg) Adenovirus (PCR) (NotDetected) B. pertussis DNA (PCR) (NotDetected) B.parapertussis DNA PCR (NotDetected) C. pneumoniae DNA (PCR) (NotDetected) Coronavirus OC43 (PCR) (NotDetected) Coronavirus HKU1 (PCR) (NotDetected) Coronavirus 229E (PCR) (NotDetected) SARS-CoV-2 (PCR) (NotDetected) Coronavirus NL63 (PCR) (NotDetected) Human Metapneumovir PCR (NotDetected) Influenza Type A (PCR) (NotDetected) Influenza Type B (PCR) (NotDetected) M. pneumoniae (PCR) (NotDetected) Parainfluenza 1 (PCR) (NotDetected) Parainfluenza 2 (PCR) (NotDetected) Parainfluenza 3 (PCR) (NotDetected) Parainfluenza 4 (PCR) (NotDetected) RSV (PCR) (NotDetected) Entero/Rhino (PCR) (NotDetected) 09/18/24 09/18/24 09/18/24 Range/Units 22:50 22:23 22:22 WBC (4.8-10.8) K/ul RBC (4.20-5.40) M/uL Hgb (12.0-16.0) g/dl Hct (37.0-47.0) % MCV (80.0-100.0) fL MCH (25.0-34.0) pg MCHC (32.0-36.0) g/dL RDW Std Deviation (36.4-46.3) fL RDW Coeff of Luis (11.5-14.5) % Plt Count (130-400) K/uL MPV (9.4-12.4) fL Immature Gran % (Auto) % Neut % (Auto) % Lymph % (Auto) % [place] % (Auto) % Eos % (Auto) % Baso % (Auto) % Neut # (Auto) (1.40-6.50) K/uL Lymph # (Auto) (1.20-3.40) K/uL [place] # (Auto) (0.11-0.59) K/uL Eos # (Auto) (0.00-0.50) K/uL Baso # (Auto) (0.00-0.20) K/uL Immature Gran # (Auto) (0.01-0.20) K/uL Sodium (136-145) mmol/L Potassium (3.5-5.1) mmol/L Chloride (98-107) mmol/L Carbon Dioxide (21-32) mmol/L Anion Gap (3-11) BUN (6-23) mg/dl Creatinine (0.6-1.2) mg/dl Est Cr Clr Drug Dosing ml/min eGFR BUN/Creatinine Ratio (10-20) Glucose (70-99(Fasting)) mg/dl Lactate 0.9 (0.4-2.0) mmol/L Calcium (8.6-10.3) mg/dl Magnesium (1.7-2.4) mg/dl Total Bilirubin (0.2-1.0) mg/dl Direct Bilirubin (0-0.2) mg/dl AST (13-39) U/L ALT (7-52) U/L Alkaline Phosphatase (34-104) U/L Troponin I High Sens (0-14) pg/ml Total Protein (6.0-8.3) gm/dl Albumin (3.4-5.0) gm/dl Procalcitonin (0-0.5) ng/ml Free T4 (0.61-1.60) ng/dl Free T3 (2.3-4.2) pg/ml Urine Color Yellow Urine Appearance Clear (Clear) Urine pH 7.0 (4.5-7.5) Ur Specific [place] 1.004 (1.000-1.030) Urine Protein Negative (Negative) Urine Glucose (UA) Negative (Negative) Urine Ketones Negative (Negative) Urine Blood Trace H (Negative) Urine Nitrite Negative (Negative) Urine Bilirubin Negative (Negative) Urine Urobilinogen Negative (Negative) Ur Leukocyte Esterase Negative (Negative) Urine WBC (Auto) 0-5 (0-5) /hpf Urine RBC (Auto) 0-2 (0-2) /hpf U Hyaline Cast (Auto) 0-2 (0-2) /lpf U Epithel Cells (Auto) 0-2 (0-2) /hpf Urine Bacteria (Auto) None Seen (None Seen) Stl C. diff Tox B Gene (Neg) Adenovirus (PCR) Not Detected (NotDetected) B. pertussis DNA (PCR) Not Detected (NotDetected) B.parapertussis DNA PCR Not Detected (NotDetected) C. pneumoniae DNA (PCR) Not Detected (NotDetected) Coronavirus OC43 (PCR) Not Detected (NotDetected) Coronavirus HKU1 (PCR) Not Detected (NotDetected) Coronavirus 229E (PCR) Not Detected (NotDetected) SARS-CoV-2 (PCR) Not Detected (NotDetected) Coronavirus NL63 (PCR) Not Detected (NotDetected) Human Metapneumovir PCR Not Detected (NotDetected) Influenza Type A (PCR) Not Detected (NotDetected) Influenza Type B (PCR) Not Detected (NotDetected) M. pneumoniae (PCR) Not Detected (NotDetected) Parainfluenza 1 (PCR) Not Detected (NotDetected) Parainfluenza 2 (PCR) Not Detected (NotDetected) Parainfluenza 3 (PCR) Not Detected (NotDetected) Parainfluenza 4 (PCR) Not Detected (NotDetected) RSV (PCR) Not Detected (NotDetected) Entero/Rhino (PCR) Not Detected (NotDetected) 09/18/24 Range/Units 21:48 WBC 18.27 H (4.8-10.8) K/ul RBC 3.80 L (4.20-5.40) M/uL Hgb 11.1 L (12.0-16.0) g/dl Hct 33.8 L (37.0-47.0) % MCV 88.9 (80.0-100.0) fL MCH 29.2 (25.0-34.0) pg MCHC 32.8 (32.0-36.0) g/dL RDW Std Deviation 42.5 (36.4-46.3) fL RDW Coeff of Luis 13.0 (11.5-14.5) % Plt Count 453 H (130-400) K/uL MPV 9.6 (9.4-12.4) fL Immature Gran % (Auto) 0.4 % Neut % (Auto) 84.1 % Lymph % (Auto) 8.9 % [place] % (Auto) 6.2 % Eos % (Auto) 0.3 % Baso % (Auto) 0.1 % Neut # (Auto) 15.37 H (1.40-6.50) K/uL Lymph # (Auto) 1.62 (1.20-3.40) K/uL [place] # (Auto) 1.14 H (0.11-0.59) K/uL Eos # (Auto) 0.05 (0.00-0.50) K/uL Baso # (Auto) 0.02 (0.00-0.20) K/uL Immature Gran # (Auto) 0.07 (0.01-0.20) K/uL Sodium 138 (136-145) mmol/L Potassium 2.9 L (3.5-5.1) mmol/L Chloride 95 L (98-107) mmol/L Carbon Dioxide 36 H (21-32) mmol/L Anion Gap 7 (3-11) BUN 8 (6-23) mg/dl Creatinine 0.68 (0.6-1.2) mg/dl Est Cr Clr Drug Dosing 50.8 ml/min eGFR 96.59 BUN/Creatinine Ratio 11.8 (10-20) Glucose 132 H (70-99(Fasting)) mg/dl Lactate (0.4-2.0) mmol/L Calcium 9.1 (8.6-10.3) mg/dl Magnesium 1.3 L (1.7-2.4) mg/dl Total Bilirubin 0.4 (0.2-1.0) mg/dl Direct Bilirubin 0.1 (0-0.2) mg/dl AST 33 (13-39) U/L ALT 22 (7-52) U/L Alkaline Phosphatase 101 (34-104) U/L Troponin I High Sens 14.7 H (0-14) pg/ml Total Protein 6.7 (6.0-8.3) gm/dl Albumin 3.6 (3.4-5.0) gm/dl Procalcitonin 3.67 H (0-0.5) ng/ml Free T4 (0.61-1.60) ng/dl Free T3 (2.3-4.2) pg/ml Urine Color Urine Appearance (Clear) Urine pH (4.5-7.5) Ur Specific [place] (1.000-1.030) Urine Protein (Negative) Urine Glucose (UA) (Negative) Urine Ketones (Negative) Urine Blood (Negative) Urine Nitrite (Negative) Urine Bilirubin (Negative) Urine Urobilinogen (Negative) Ur Leukocyte Esterase (Negative) Urine WBC (Auto) (0-5) /hpf Urine RBC (Auto) (0-2) /hpf U Hyaline Cast (Auto) (0-2) /lpf U Epithel Cells (Auto) (0-2) /hpf Urine Bacteria (Auto) (None Seen) Stl C. diff Tox B Gene (Neg) Adenovirus (PCR) (NotDetected) B. pertussis DNA (PCR) (NotDetected) B.parapertussis DNA PCR (NotDetected) C. pneumoniae DNA (PCR) (NotDetected) Coronavirus OC43 (PCR) (NotDetected) Coronavirus HKU1 (PCR) (NotDetected) Coronavirus 229E (PCR) (NotDetected) SARS-CoV-2 (PCR) (NotDetected) Coronavirus NL63 (PCR) (NotDetected) Human Metapneumovir PCR (NotDetected) Influenza Type A (PCR) (NotDetected) Influenza Type B (PCR) (NotDetected) M. pneumoniae (PCR) (NotDetected) Parainfluenza 1 (PCR) (NotDetected) Parainfluenza 2 (PCR) (NotDetected) Parainfluenza 3 (PCR) (NotDetected) Parainfluenza 4 (PCR) (NotDetected) RSV (PCR) (NotDetected) Entero/Rhino (PCR) (NotDetected) Diagnostic Findings Chest X-Ray 09/18/24 21:55 Exam(s): XR CXR 1 VIEW EXAM: XR Chest, 1 View CLINICAL HISTORY: Reason for exam: Sepsis. TECHNIQUE: Frontal view of the chest. COMPARISON: Chest x-ray 05/12/23. FINDINGS: Lungs: Hyperexpansion of the lungs and fairly stable pattern of scattered interstitial thickening, likely chronic. No mass, focal infiltrate, pleural effusion or consolidation. Pleural space: No pneumothorax. Heart: No cardiomegaly. Mediastinum: Unremarkable. Bones/Soft Tissues: No acute abnormality. IMPRESSION: 1. Stable emphysema and presumed chronic interstitial scarring. 2. No acute process in the chest. Electronically signed by: Megan Newton M.D. 09/19/24 00:20 AM Abdomen/Pelvis CT 09/18/24 21:56 CR Exam(s): CT ABDOMEN + PELVIS With Contrast IV Amt: 118 ML OPTIRAY 320 EXAM: CT Abdomen and Pelvis With Intravenous Contrast CLINICAL HISTORY: Reason for exam: fever, lower abd pain. TECHNIQUE: Axial computed tomography images of the abdomen and pelvis with intravenous contrast. CTDI is 6.45 mGy and DLP is 219.53 mGy-cm. Automated exposure control was utilized for the study. A dose lowering technique was utilized adhering to the principles of ALARA. Moderate breathing artifact. CONTRAST: Patient received 118 ML OPTIRAY 320 of IV contrast COMPARISON: CT abdomen pelvis 09/12/24. FINDINGS: Lung bases: Severe emphysema, stable. Liver: Fatty. Mild intrahepatic ductal dilatation. Gallbladder and bile ducts: Moderate distended gallbladder, with mild ductal dilation, CBD 1 cm. Pancreas: No ductal dilation, or acute pancreatitis. Spleen: Unremarkable. Adrenals: Unremarkable. Kidneys and ureters: Wall enhancement of a mild dilated right ureter, may be secondary to pyelitis and postobstructive uropathy. No perinephric abscess, pyelonephritis or hydronephrosis. Stomach and bowel: Moderate to severe, long segment wall thickening rectosigmoid colon with diverticulosis. Findings are nonspecific, probable acute diverticulitis, though cannot rule out a nonspecific colitis. Lobular fluid collections along the right lateral superior serosal margin, nonspecific, cannot rule out developing abscess or contained perforations. No obstruction. Appendix: No acute appendicitis. Intraperitoneal space: No free air or fluid. Bones/joints: No acute fracture. Soft tissues: Unremarkable. Vasculature: No aortic aneurysm. Lymph nodes: No enlarged lymph nodes. Bladder: No stones. Reproductive: Unremarkable as visualized. IMPRESSION: 1. Severe, long segment rectosigmoid colitis/acute diverticulitis. Suspect developing serosal margin abscesses. 2. No ramesh perforation. 3. Probable obstructive uropathy and associated right pyelitis. 4. Distended gallbladder with mild intra-and extrahepatic ductal dilatation. 5. Severe emphysema, stable. Communications: Call Doctor Above results Electronically signed by: Megan Newton M.D. 09/19/24 00:37 AM Chest CTA 09/18/24 21:56 Exam(s): CTA CHEST IV Amt: 118 ML OPTIRAY 320 EXAM: CT Angiography Chest With Intravenous Contrast CLINICAL HISTORY: Reason for exam: PE. TECHNIQUE: Axial computed tomographic angiography images of the chest with intravenous contrast. CTDI is 6.44 mGy and DLP is 262.9 mGy-cm. Automated exposure control was utilized for the study. A dose lowering technique was utilized adhering to the principles of ALARA. 118 ML Optiray 320 given IV. MIP reconstructed images were created and reviewed. COMPARISON: CT chest 10/06/23. FINDINGS: Pulmonary arteries: No pulmonary embolism. Aorta: No dissection flap or aneurysm. Lungs: Severe emphysema is stable. Mild scattered interstitial thickening greater on the left, fairly stable, likely chronic. No consolidation. Pleural space: No significant effusion. No pneumothorax. Heart: No cardiomegaly. No significant pericardial effusion. No evidence of elevated right heart pressures. Bones/joints: No acute fracture. Soft tissues: Unremarkable. Lymph nodes: No enlarged lymph nodes. IMPRESSION: 1. No pulmonary embolism. 2. Severe emphysema. 3. No gross mass or focal infiltrate. Electronically signed by: Megan Newton M.D. 09/19/24 01:[address] 09/18/24 21:56 Exam(s): CT L SPINE With Contrast IV Amt: 118 ML OPTIRAY 320 EXAM: CT Lumbar Spine With Intravenous Contrast CLINICAL HISTORY: Reason for exam: fall ,pain. TECHNIQUE: Axial computed tomography images of the lumbar spine with intravenous contrast. CTDI is 6.45 mGy and DLP is 219.53 mGy-cm. Automated exposure control was utilized for the study. A dose lowering technique was utilized adhering to the principles of ALARA. CONTRAST: Patient received 118 ML OPTIRAY 320 of IV contrast COMPARISON: None. FINDINGS: Vertebrae: Grade 1 L2-3 retrolisthesis. No acute fracture. Discs/spinal canal/neural foramina: Moderate narrowing at L2-3 and L4- 5. Remaining disc heights are fairly well preserved. Soft tissues: Emphysema, intra-and extrahepatic ductal dilatation, right pyelitis and partially imaged sigmoid colitis. See separately dictated CT abdomen pelvis. IMPRESSION: 1. L2-3 retrolisthesis and degenerative disc disease. 2. No fracture or acute bony abnormality. 3. Acute abnormality in the abdomen/pelvis partially included, see separately dictated CT abdomen pelvis. Electronically signed by: Megan Newton M.D. 09/19/24 00:50 AM Chest X-Ray 09/20/24 13:05 XR chest 1V portable CLINICAL HISTORY: wheezing COMPARISON STUDY: 09/18/2024 and 05/12/2023 FINDINGS: Single view portable chest redemonstrates a asymmetrical hyperexpansion of the right lung compared with the left. There is a white line in the superior and axillary portion of the right upper lobe simulating a pneumothorax. I can see lung markings beyond this line and a similar appearance was present on 05/12/2023. Increased air reticular markings have developed in the left mid and lower lung zones suspicious for upper airway infection/bronchitis. IMPRESSION: Persistent findings of asymmetric emphysema predominantly involving the right lung. Probable skinfold simulating a pneumothorax on the right. This could be confirmed with a nonportable erect radiograph or CT scanning as warranted. Increased reticular markings in the left mid and lower lung zone suspicious for acute on chronic interstitial lung disease or upper airway infection. ACT 112: Negative or not required by law. Electronically signed by: Evette Davis M.D. 09/20/2024 1:39 PM Chest X-Ray 09/20/24 14:55 XR chest 1V portable CLINICAL HISTORY: chest tube COMPARISON STUDY: Earlier today through 05/12/[address] CT of 09/18/2024. FINDINGS: There is interval right upper pigtail chest tube. There is a small right apical pneumothorax with 2 cm pleural separation at the right apex. There is vertical skinfold artifact overlying the lateral right chest. There is severe emphysema. No consolidation or pleural effusion. IMPRESSION: Small right apical pneumothorax. ACT 112: Negative or not required by law. Electronically signed by: Emanuel Foley M.D. 09/20/2024 3:20 PM Chest X-Ray 09/21/24 07:00 EXAM: XR chest 1V portable CLINICAL HISTORY: chest tube TECHNIQUE: Radiograph of chest was acquired. COMPARISON: 09/18/2024 21:02:08 FINDINGS: Pig tail catheter seen insitu on right side, directed cranially and with coiled tip in right upper zone. Mild right sided pneumothorax Linear air space opacities in bilateral lung payan- as seen previously Rest of the lungs are clear and well-expanded No pleural effusion. The cardiomediastinal silhouette is within normal limits. No acute osseous abnormality. Soft tissue thickening along the right lateral chest wall. IMPRESSION: 1. Pig tail catheter seen insitu on right side, directed cranially and with coiled tip in right upper zone.- new finding 2. Mild right sided pneumothorax - new finding 3. Linear air space opacities in bilateral lung payan- as seen previously 4. Soft tissue thickening along the right lateral chest wall.- likely post procedural No other interval changes Electronically signed by Ludwig Pickens 09-21-2024 08:[address] 09/21/24 07:58 CT chest diagnostic wo con CT DOSE: 221.36 mGy.cm CLINICAL HISTORY: Evaluate right lung for PTX depsite chest tube. TECHNIQUE: Multiaxial CT images of the chest were performed without contrast. A dose lowering technique was utilized adhering to the principles of ALARA. COMPARISON STUDY: X-rays yesterday and CT of 09/18/2024 FINDINGS: There is severe emphysema most advanced in the upper lung lobes. There is a moderate to large anterior right pneumothorax. There is a right upper chest tube from an anterior approach with the distal pigtail at the posterior upper right pleural space in contact with the posterior superior aspect of the right lung. There is mild dependent atelectasis at the right lower lobe. There is a trace right pleural effusion. There is minimal atelectasis left lung base. No pleural effusion or pneumothorax on the left. A few small pulmonary nodules are stable. No enlarged adenopathy. No pericardial effusion. There are diffuse coronary artery calcifications. No acute osseous findings. IMPRESSION: 1. Moderate to large right pneumothorax. 2. The pigtail of the chest tube is in contact with the right upper lung and this may be occluding the holes. Suggest withdrawing the tube approximately 2 cm to see if that results in aspirated air. 3. Otherwise as described. ACT 112: Negative or not required by law. Electronically signed by: Emanuel Foley M.D. 09/21/2024 9:18 AM Chest X-Ray 09/22/24 07:00 EXAM: XR chest 1V portable CLINICAL HISTORY: chest tube TECHNIQUE: Radiograph of chest was acquired. COMPARISON: 09/21/2024 05:53:43 HR OPERATIONS ADVISOR FINDINGS: Right side chest tube/pitail catheter seen. Mild to moderate right pneumothorax. Minimal right pleural effusion/pleural thickening. Fibrotic and atelectatic bands in bilateral mid and lower zones. The cardiomediastinal silhouette is within normal limits. No acute osseous abnormality. IMPRESSION: 1. Right side chest tube/pitail catheter seen.Mild to moderate right pneumothorax- Stable. 2. Minimal right pleural effusion/pleural thickening. New finding. 3. Fibrotic and atelectatic bands in bilateral mid and lower zones- Stable. Electronically signed by Ludwig Pickens 09-22-2024 08:04 AM Chest X-Ray 09/23/24 07:00 EXAM: XR chest 1V portable CLINICAL HISTORY: chest tube TECHNIQUE: Radiograph of chest was acquired. COMPARISON: 09/22/2024 FINDINGS: Right side chest tube/pitail catheter seen. Moderate right pneumothorax. No evidence of pleural effusion on either side. Bilateral hyperinflated lung payan with changes of emphysema in both lungs. Fibrotic and atelectatic bands in bilateral mid and lower zones. The cardiomediastinal silhouette is within normal limits. No acute osseous abnormality. IMPRESSION: 1. Right side chest tube/pitail catheter seen.Moderate right pneumothorax- Stable. 2. No pleural effusion at present study. 3. Fibrotic and atelectatic bands in bilateral mid and lower zones- Stable. 4. Changes of chronic obstructive pulmonary disease in form of emphysema in bilateral lung payan. Stable finding. Electronically signed by Ludwig Pickens 09-23-2024 09:05 AM Chest X-Ray 09/24/24 07:22 XR chest 1V portable HISTORY: 63 years-old Female ptx acute shortness of breath COMPARISON: Chest radiograph 09/24/2019 6:55 AM TECHNIQUE: AP view of the chest FINDINGS: Right-sided pleural catheter is again noted coiled at the right lung apex. Right apical pneumothorax is again noted with separation of approximately 1.3 cm previously 9 mm. Emphysema with chronic fibrotic changes. Layering right basilar pleural effusion with mild bibasilar densities, stable from prior. The bones appear grossly intact. IMPRESSION: 1. No change position of the right-sided pleural catheter. 2. Right-sided hydropneumothorax redemonstrated, slightly increased in size from yesterday's exam. 3. Severe pulmonary emphysema. ACT 112: Negative or not required by law. The above report was generated using voice recognition software. It may contain grammatical, syntax or spelling errors. Electronically signed by: Maciej Dumas M.D. 09/24/2024 8:21 AM Chest X-Ray 09/25/24 07:00 EXAM: XR chest 1V portable CLINICAL HISTORY: ptx TECHNIQUE: Radiograph of chest was acquired. COMPARISON: 09/23/2024 05:55:01 HR OPERATIONS ADVISOR FINDINGS: Right side chest tube/pitail catheter seen. Possible mild right pneumothorax. Mild right pleural effusion. No evidence of left pleural effusion. Bilateral hyperinflated lung payan with changes of emphysema in both lungs. Fibrotic and atelectatic bands in bilateral mid and lower zones. The cardiomediastinal silhouette is within normal limits. No acute osseous abnormality. IMPRESSION: 1. Right side chest tube/pitail catheter seen. Possible mild right pneumothorax- Stable. 2. Mild right pleural effusion. 3. Fibrotic and atelectatic bands in bilateral mid and lower zones- Stable. No other new interval abnormality since prior study. Electronically signed by Ludwig Pickens 09-25-2024 08:03 AM PG Care Time/CCT Total # of Minutes Spent Total Time Spent with Patient: Total time spent is greater than 50% in coordination of care (as documented) at patient's floor/unit and/or counseling patient: I spent 90 minutes overall addressing this case: 15 min in medical data review/discussion with referring provider(s) and/or preparation for the visit 10 min in direct interaction with the patient/exam 30 min in Advance Care Planning/Goals of Care discussions as detailed above in note (must be >16min) 15 min in subsequent review and synthesis of assessment and plan 20 min communicating with other providers regarding the patient's case: pulm med/Dr Pinzon, primary team, [facility] mgt, nursing Advanced Care Planning 39716 Advanced Care Planning 30 [place] [address] IN/OBS CONSULT LVL 4,60M (25 - SIGNIFICANT, SEPARATELY IDENTIFIABLE ) Patient Type New Medical Decision Making High Complexity Diagnoses Dyspnea and respiratory abnormalities R06.00; R06.89 Abdominal pain R10.9 Weakness generalized R53.1 Severe malnutrition E43 Anxiety F41.9 Advanced care planning/counseling discussion Z71.89 Palliative care by specialist Z51.5 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
== END 2024-09-25 12:48 | disposition short-term general hospital (02) | DRG 871 ==
LOC: ED 21:19 → SUATTDRO 09-19 02:19 → EDINP 09-19 02:19 → 2N 09-19 12:52